=== PATIENT | female | born 1970 | race Caucasian/White ===

== ENCOUNTER 2016-12-16 18:45 | Inpatient (IN) | payer MEDICAID, SELFPAY ==
[~2016-12-16] VITALS: Ht 162.6 cm; Wt 102.5 kg
[2016-12-16] MEDS ORDERED: TRAZ300T2 PO (19:06)
[2016-12-16] MEDS ORDERED: SING10TA32 PO (19:06)
[2016-12-16] MEDS ORDERED: LEVO25TA5 PO (19:06)
[2016-12-16] MEDS ORDERED: BUSP15TA47 PO (19:06)
[2016-12-16] MEDS ORDERED: FIOR1CAP2 PO (19:06)
[2016-12-16] MEDS ORDERED: PROTPAK PO (19:06)
[2016-12-16] MEDS ORDERED: ABIL10TA9 PO (19:06)
[2016-12-16] MEDS ORDERED: LOPI600T PO (19:06)
[2016-12-16] MEDS ORDERED: GABA-283 PO (19:06)
[2016-12-16] MEDS ORDERED: SYMB16INH INH (19:06)
[2016-12-16] MEDS ORDERED: MOBI15TA PO (19:06)
[2016-12-16] MEDS ORDERED: INSUHUMDS SC (19:06)
[2016-12-16] MEDS ORDERED: CYMB60CA3 PO (19:06)
[2016-12-16] MEDS ORDERED: HYDR12.55 PO (19:06)
[2016-12-16] MEDS ORDERED: LISI10TA4 PO (19:06)
[2016-12-16] MEDS ORDERED: MAG SULF 1GM/100ML (MAG RUN) 1 GM in APPROPRIATE DILUENT 1 EA IV ONE (19:15)
[2016-12-16] MEDS ORDERED: methylPREDNISolone INJ 125 MG/2 ML VIAL (J2930) IV ONE (19:15)
[2016-12-16] MEDS: IPRATROPIUM 0.5MG/ALBUTEROL 2.5MG INH SOL UD 3ML (DUONEB)(J7620) NEB PRN (19:27)
[2016-12-16 19:46] LABS: ABG BASE EXCESS -1.1 (-2.0-2.0); ABG HCO3 22.3 MEQ/L (22.0-26.0); ABG PARTIAL PRESSURE CO2 33.3 mmHg (35.0-45.0); ABG PARTIAL PRESSURE O2 72.1 mmHg (75.0-100.0); ABG STANDARD HCO3 23.5 MEQ/L (22.0-26.0); ABG TOTAL CO2 23.3 MEQ/L (22.0-29.0); ABG pH (ARTERIAL) 7.444 UNITS (7.350-7.450)
[2016-12-16 20:19] LABS: MEAN CORPUSCULAR HEMOGLOBIN 28.4 pg (27.0-33.0); MEAN CORPUSCULAR HGB CONC 31.5 g/dl (32.0-36.5); MEAN CORPUSCULAR VOLUME 90.1 fl (80.0-96.0); PLATELET COUNT, AUTOMATED 279 10^3/uL (150-450); RED CELL DISTRIBUTION WIDTH 17.5 % (11.5-14.5)
[2016-12-16 20:22] LABS: ADD MANUAL DIFFER YES; DIFF SLIDE NUMBER 303; WHITE BLOOD COUNT 13.4 10^3/uL (4.0-10.0)
[2016-12-16 20:39] LABS: ANION GAP 10 MEQ/L (8-16); BLOOD UREA NITROGEN 9 MG/DL (7-18); CARBON DIOXIDE LEVEL 26 MEQ/L (21-32); CHLORIDE LEVEL 100 MEQ/L (98-107); CREATININE FOR GFR 0.78 MG/DL (0.55-1.02); GLOMERULAR FILTRATION RATE > 60.0 (>58); GLUCOSE, FASTING 317 MG/DL (70-105); POTASSIUM SERUM 3.4 MEQ/L (3.5-5.1); SODIUM LEVEL 136 MEQ/L (136-145)
[2016-12-16] MEDS: SYMBICORT 160/4.5MCG INHALER 6GM INH SCH (21:00)
[2016-12-16 21:12] LABS: ANISOCYTOSIS 1+; EOSINOPHILS 6 % (0-5)
[2016-12-16 21:13] LABS: SMUDGE CELLS 1+
[2016-12-16] MEDS: IPRATROPIUM 0.5MG/ALBUTEROL 2.5MG INH SOL UD 3ML (DUONEB)(J7620) NEB SCH ×3 (21:42→22:10)
[2016-12-16] MEDS ORDERED: POTASSIUM CHLORIDE 10 MEQ SR TABLET PO ONE (21:45)
[2016-12-16] MEDS ORDERED: IPRATROPIUM 0.5MG/ALBUTEROL 2.5MG INH SOL UD 3ML (DUONEB)(J7620) NEB PRN (21:45)
[2016-12-16] MEDS ORDERED: GLUCAGON FOR INJ 1 MG VIAL (J1610) SC PRN (22:00)
[2016-12-16] MEDS ORDERED: DEXTROSE 50% 50 ML SYRINGE IV PRN (22:00)
[2016-12-16] MEDS ORDERED: ACETAMINOPHEN TAB 650MG DOSE (2X325MG) PO PRN (22:00)
[2016-12-16] MEDS ORDERED: GLUCOSE 4 GM CHEW TABLET PO PRN (22:00)
[2016-12-16] MEDS ORDERED: ONDANSETRON 4MG/2ML VIAL (J2405) IV PRN (22:00)
[2016-12-16 22:15] LABS: ALBUMIN 3.4 GM/DL (3.2-5.2); ALBUMIN/GLOBULIN RATIO 0.87 (1.00-1.93); ALKALINE PHOSPHATASE 216 U/L (45-117); ALT/SGPT 62 U/L (12-78); AST/SGOT 28 U/L (15-37); BILIRUBIN,DIRECT < 0.1 MG/DL (0.0-0.2); BILIRUBIN,TOTAL 0.2 MG/DL (0.2-1.0); T UPTAKE 34 % (30-39); THYROXINE (T4) 11.9 UG/DL (4.5-12.0); TOTAL PROTEIN 7.3 GM/DL (6.4-8.2)
[2016-12-16] MEDS ORDERED: IPRASOL4 INH (22:28)
[2016-12-16] MEDS ORDERED: PROT1TAB2 PO (22:28)
[2016-12-16] MEDS ORDERED: GABA-282 PO (22:28)
[2016-12-16] MEDS ORDERED: INSUDET SC (22:28)
[2016-12-16] MEDS ORDERED: BUSP10TA PO (22:28)
[2016-12-16] MEDS ORDERED: ALBU17IN INH (22:28)
[2016-12-16] MEDS ORDERED: ALBUTEROL 90 MCG/ACT 8GM HFA INHALER INH PRN (23:15)
[2016-12-16 23:16] VITALS: BP 143/87
--- NOTE | 2016-12-16 23:25 | HPE ---
DATE OF ADMISSION: 12/16/2016 PRIMARY CARE PROVIDER: In [place], which the patient has not been seen because the patient has moved to [place]. CHIEF COMPLAINT: Shortness of breath and cough. HISTORY OF PRESENT ILLNESS: This is a 46-year-old female patient with underlying medical history of obesity, type 2 diabetes, insulin dependent, hypothyroidism, post traumatic stress disorder, bulging disc, insomnia, migraine, asthma, chronic obstructive pulmonary disease (COPD), with alpha-1 antitrypsin deficiency. Has been receiving infusion on weekly basis for the past year up until three weeks ago, when the patient moved to [place]. The patient presented with one week of progressive worsening shortness of breath and cough with upper respiratory tract symptoms of nasal congestion. Initially was coughing up clear sputum, but over the past two days was coughing up green sputum with subjective fevers. Positive sick contact. Today the patient has been coughing bad enough that patient vomited once. Was nonbloody, nonbilious with significant shortness of breath, presented to the emergency room. Denies any chest pain, pressure or discomfort. Reported dyspnea. Denies any abdominal pain, diarrhea or constipation. ALLERGIES: TABLET FORM OF PREDNISONE. The patient tolerated liquid form of prednisone without any problem. PAST MEDICAL HISTORY: Type 2 diabetes. Hypothyroidism. Posttraumatic stress disorder. Bulging disc. Insomnia. Migraine. Asthma. COPD. Alpha-1 antitrypsin deficiency. Obesity. Questionable history of obstructive sleep apnea. Has not had a sleep study done yet. PAST SURGICAL HISTORY: Tonsillectomy. Appendectomy. Cholecystectomy. section times three. SOCIAL HISTORY: Recently moved to [place]. Lives with a close friend. Quit smoking 6 years ago, 1 pack per day smoker for 20 plus years. Occasional alcohol drinking about once a week. FAMILY HISTORY: Skin cancer, no other cancers. Denies family history of lung cancer. REVIEW OF SYSTEMS: Reported coughing. Productive of green phlegm. Nasal congestion. Shortness of breath. Subjective fever and chills. All other review of systems are negative. HOME MEDICATION: - Abilify 10 mg by mouth at bedtime - Symbicort 160, 4.5 inhalation twice a day - buspirone 20 mg by mouth three times a day - Cymbalta 120 mg by mouth three times a day - Fioricet/codeine combination every 4 hours as needed - gabapentin 300 mg by mouth three times a day - gemfibrozil 600 mg by mouth daily - hydrochlorothiazide 25 mg by mouth daily - Humalog mealtime subcutaneous - Synthroid 25 mcg by mouth daily - lisinopril 10 mg by mouth daily - Mobic 50 mg by mouth daily - Singulair 10 mg by mouth daily - Protonix 40 mg by mouth twice a day - trazodone 200 mg by mouth at bedtime PHYSICAL EXAMINATION: VITAL SIGNS: Temperature 97.9, pulse 114, respirations 18, blood pressure 190/90, pulse oximetry 97% on room air. GENERAL: The patient alert, oriented times three. Obese. In no acute distress. HEENT: Normocephalic, atraumatic. PULMONARY: Diminished breath sounds bilateral. Poor air movement. CARDIAC: Regular S1, S2. No murmurs detected. ABDOMEN: Soft, obese, nontender. Positive bowel sounds. EXTREMITIES: No clubbing, cyanosis or edema. LABORATORY: WBC 13.4, hemoglobin and hematocrit 11.2/35.5, platelets 279. Chemistry: Sodium 136, potassium 3.4, chloride 100, bicarbonate 26, BUN 9, creatinine 0.78. Lactic acid 3.9. Chest x-ray shows bilateral hilar infiltrates with chemo port in place. ASSESSMENT AND PLAN: This is a 46-year-old female patient with underlying medical history of asthma, COPD, posttraumatic stress disorder, type 2 diabetes, hypothyroidism, bulging disc disease, chronic back pain, insomnia, migraine headache, alpha-1 antitrypsin deficiency. Questionable history of obstructive sleep apnea admitted for acute asthmatic exacerbation secondary to upper respiratory infection (URI). 1. Acute asthma exacerbation. Possibly secondary to URI versus bacterial bronchitis. Antibiotics of azithromycin and Rocephin, Solu-Medrol steroids. Continue nebulizer treatments, inhalers. Taper steroids as tolerated. ABG is appreciated. X-rays appreciated. Acapella. Mucinex. Followup C-reactive panel, respiratory panel, sputum cultures. 2. Lactic acidosis secondary to respiratory dry. The patient has stable blood pressure. Will followup repeat lactic acid. 3. Hypokalemia. Supplement potassium. Will followup magnesium. 4. Type 1 diabetes. Insulin as per protocol. 5. Hypothyroidism. Followup thyroid panel. Continue current medication. 6. Depression. Posttraumatic stress disorder. Continue current medication. 7. Bulging disc. Continue current medication. 8. Migraine headache. Continue home medication as ordered. The patient currently not having any symptoms. 9. Questionable obstructive sleep apnea. Continue pulse oximetry. 10. Alpha-1 antitrypsin deficiency. The patient will need outpatient followup with pulmonary. Case discussed with Dr. Johnson. No acute intervention in terms of infusion needed at this time. 11. Tachycardia. Likely secondary to nebulizer treatment and respiratory distress. Currently improved. 12. Deep venous thrombosis (DVT) prophylaxis. Lovenox subcutaneous. DISPOSITION: Pending clinical improvement. The patient will need primary care provider as well as whipped topping mixer to be arranged as outpatient.
[2016-12-16] MEDS ORDERED: TRAZ-136 PO (23:46)
[2016-12-17] MEDS: ARIPiprazole 10 MG TAB PO SCH ×2 (00:36→21:44)
[2016-12-17] MEDS: traZODone 100 MG TAB PO SCH ×2 (00:36→21:43)
[2016-12-17] MEDS: GABAPENTIN 300 MG CAP PO SCH ×4 (00:36→21:44)
[2016-12-17] MEDS: guaiFENesin ER 600 MG TAB PO SCH ×3 (00:37→21:44)
[2016-12-17] MEDS: cefTRIAXone SOD 2 GM in D5W 50 ML IV SCH ×2 (00:37→21:42)
[2016-12-17] MEDS: PANTOPRAZOLE 40MG TAB (PROTONIX) PO SCH ×3 (00:37→21:44)
[2016-12-17] MEDS: busPIRone 10 MG TAB PO SCH ×4 (00:37→21:44)
[2016-12-17] MEDS: HumaLOG INSULIN (NovoLOG) PER UNIT SC SCH ×5 (00:38→21:42)
[2016-12-17] MEDS: LEVEMIR (INSULIN DETEMIR) 1 UNITS/0.01ML SC SCH ×3 (00:38→21:43)
[2016-12-17] MEDS: IPRATROPIUM 0.5MG/ALBUTEROL 2.5MG INH SOL UD 3ML (DUONEB)(J7620) NEB SCH ×4 (01:09→19:35)
[2016-12-17] MEDS: AZITHROMYCIN INJ 500 MG, VIAL MATE ADAPTER 1 EACH in D5W 250 ML IV SCH ×2 (02:03→22:37)
[2016-12-17] MEDS: methylPREDNISolone INJ 125 MG/2 ML VIAL (J2930) IV SCH ×2 (03:17→11:28)
[2016-12-17] MEDS: SODIUM CHLORIDE 0.9% INJ 10 ML SYR IV PRN (04:45)
[2016-12-17 05:07] LABS: MEAN CORPUSCULAR HEMOGLOBIN 28.6 pg (27.0-33.0); MEAN CORPUSCULAR HGB CONC 31.7 g/dl (32.0-36.5); MEAN CORPUSCULAR VOLUME 90.2 fl (80.0-96.0)
[2016-12-17] MEDS: LEVOTHYROXINE 25MCG TABLET (0.025MG) PO SCH (05:32)
[2016-12-17 06:00] VITALS: BP 133/93
[2016-12-17 06:49] LABS: ANION GAP 9 MEQ/L (8-16); BLOOD UREA NITROGEN 12 MG/DL (7-18); CARBON DIOXIDE LEVEL 24 MEQ/L (21-32); CHLORIDE LEVEL 102 MEQ/L (98-107); CREATININE FOR GFR 0.88 MG/DL (0.55-1.02); GLOMERULAR FILTRATION RATE > 60.0 (>58); MAGNESIUM LEVEL 2.2 MG/DL (1.8-2.4); POTASSIUM SERUM 4.7 MEQ/L (3.5-5.1); SODIUM LEVEL 135 MEQ/L (136-145)
[2016-12-17 06:53] LABS: GLUCOSE, FASTING 492 MG/DL (70-105)
[2016-12-17] MEDS: SYMBICORT 160/4.5MCG INHALER 6GM INH SCH ×2 (07:25→19:34)
[2016-12-17] MEDS ORDERED: HumaLOG INSULIN (NovoLOG) PER UNIT SC SCH (07:30)
--- NOTE | 2016-12-17 07:36 | REP ---
PA and lateral chest: Comparison is 12/10/2016. Lung jara are clear. Cardiac size is normal. The harriet, mediastinum, and bony thorax are unremarkable. There is a left subclavian [id number] catheter, unchanged. Impression: No acute cardiopulmonary findings. No interval change. The Signed by Emir Velasquez MD 12/17/2016 07:26 A
[2016-12-17] MEDS ORDERED: DULoxetine 30 MG CAP (CYMBALTA) PO SCH (09:00)
[2016-12-17] MEDS: SODIUM CHLORIDE 0.9% INJ 10 ML SYR IV SCH (09:00)
[2016-12-17] MEDS: SENOKOT S TAB PO SCH ×2 (09:22→21:43)
[2016-12-17] MEDS: GEMFIBROZIL 600 MG TAB PO SCH (09:22)
[2016-12-17] MEDS: LISINOPRIL 10 MG TAB PO SCH (09:22)
[2016-12-17] MEDS: DULoxetine 30 MG CAP (CYMBALTA) PO SCH (09:23)
[2016-12-17] MEDS: hydroCHLOROthiazide 25 MG TAB PO SCH (09:23)
[2016-12-17] MEDS: MONTELUKAST 10 MG TAB PO SCH (09:23)
[2016-12-17] MEDS: ENOXAPARIN 40 MG/0.4 ML SYRINGE (J1650) SC SCH (09:23)
[2016-12-17] MEDS: MELOXICAM (MOBIC) 7.5 MG TAB PO SCH (09:35)
[2016-12-17 14:00] VITALS: BP 130/90
--- NOTE | 2016-12-17 16:55 | IPNPDOC ---
Subjective Date Seen The patient was seen on 12/17/16. Subjective Chief Complaint/HPI The patient is a 46-year-old female admitted with a reason for visit of Acute Asthma Exacerbation. Events since last encounter Patient condition improving. WBC 13.0 today (trending down from admission). Potassium 4.7 today. Glucose 492, Lactic acid 3.3 today . Patient CXR on 12/16 showed no acute findings. Nasopharynx Respiratory Virus Panel was negative. Blood cultures are pending. Patient has been administered Azithromycin and Rocephin, as well as SoluMedrol Steroids, Mucinex, and an Acapella. Patient states that she is feeling much better today. She states that her SOB and cough have improved. She is still coughing up sputum, but it is not as green as it was yesterday. Patient admits to chest tightness in relation to her breathing difficulties that is improving as well. Patient denies REAVES, chest pain, abdominal pain, N/V/D/C, dysuria, abnormal swelling in her legs. Constitutional: Denies: Chills, Fever ENT: Denies: Head Aches Pulmonary: Reports: Cough (Improved from admission, sputum less green), Denies: Dyspnea Cardiovascular: Reports: Edema (She gets swelling every now and then, this is the same type), Other Symptoms (Chest tightness in relation to breathing difficulty), Denies: Chest Pain Gastrointestinal: Denies: Nausea, Vomiting, Abdominal Pain, Diarrhea, Constipation Genitourinary: Denies: Dysuria Objective Physical Examination General Exam: Positive: Alert, Cooperative Chest Exam: Positive: Wheezing (Faint inspiratory and end-expiratory wheezing bilateral), Diminished (Diminished in all jara) Heart Exam: Positive: Tachycardic, Regular Rhythm, Normal S1, Normal S2 Abdomen Exam: Positive: Normal bowel sounds, Soft, Negative: Tenderness Neuro Exam: Positive: Normal Speech Psych Exam: Positive: Mental status NL, Oriented x 3 Assessment /Plan Assessment 1. Acute asthma exacerbation. Patient condition improved from admission on 12/16. Azithromycin and Rocephin, Solu-Medrol steroids prescribed, will continue. Continue nebulizer treatments, inhalers, Acapella, Mucinex. Taper steroids as tolerated. D.C. IV steroid 60 mg IV today and starting prednisone 40 mg liquid today. Blood cultures pending. 2. Lactic acidosis likely secondary to respiratory hypoxia. Will not be following lactic acid because clinically patient is improving. Will revaluate in the future if needed. 3. Hypokalemia. Supplemented with potassium after 3.4 on admission. Resolved with 4.7 today. Will continue to monitor. 4. Type 1 diabetes. Insulin as per protocol. 5. Hypothyroidism. Followup thyroid panel (no abnormalities on admission thyroid panel). Continue current medication. 6. Depression. Posttraumatic stress disorder. Continue current medication. 7. Bulging disc. Continue current medication. 8. Migraine headache. Continue home medication as ordered. The patient currently not having any symptoms. 9. Questionable obstructive sleep apnea. Continue pulse oximetry. 10. Alpha-[address] Johnson consulted on admission. The patient will need outpatient followup with pulmonary. No acute intervention in terms of infusion needed at this time. We appreciate Dr. Johnson's input. 11. Tachycardia. Likely secondary to nebulizer treatment will continue to monitor. 12. Deep venous thrombosis (DVT) prophylaxis. Lovenox subcutaneous. Plan/VTE VTE Prophylaxis Ordered?: Yes (levonox) VS, I&O, 24H, [facility] Vital Signs/I&O Vital Signs Date Time Temp Pulse Resp B/P (MAP) Pulse Ox O2 Delivery O2 Flow Rate FiO2 12/17/16 09:22 133/93 12/17/16 06:00 96.8 113 18 95 Room Air I&O- Last 24 Hours up to 6 AM 12/18/16 05:59 Intake Total 360 ml Output Total 800 ml Balance -440 ml Laboratory Data 24H LABS Laboratory Tests 2 12/16/16 19:19: White Blood Count 13.4H, Red Blood Count 3.94L, Hemoglobin 11.2L, Hematocrit 35.5L, Mean Corpuscular Volume 90.1, Mean Corpuscular Hemoglobin 28.4, Mean Corpuscular Hemoglobin Concent 31.5L, Red Cell Distribution Width 17.5H, Platelet Count 279, Lymphocytes # (Auto) , Nucleated Red Blood Cells % (auto) 0.0, Neutrophils 49, Lymphocytes (Manual) 43, Monocytes (Manual) 2, Eosinophils (Manual) 6H, Smudge Cells 1+, Platelet Estimate NORMAL, Anisocytosis 1+, Blood Gas Bicarbonate Standard 23.5, Arterial Blood pH 7.444, Arterial Blood Partial Pressure CO2 33.3L, Arterial Blood Partial Pressure O2 72.1L, Arterial Blood Total CO2 23.3, Arterial Blood HCO3 22.3, Arterial Blood Base Excess -1.1, Arterial Blood Oxygen Saturation 95.1, Anion Gap 10, Glomerular Filtration Rate > 60.0, Lactic Acid Level 3.9*H, Blood Urea Nitrogen 9, Creatinine 0.78, Sodium Level 136, Potassium Level 3.4L, Chloride Level 100, Carbon Dioxide Level 26, Calcium Level 9.0, Aspartate Amino Transf (AST/SGOT) 28, Alanine Aminotransferase (ALT/SGPT) 62, Alkaline Phosphatase 216H, Total Bilirubin 0.2, Direct Bilirubin < 0.1, C-Reactive Protein, Quantitative 2.88H, Total Protein 7.3, Albumin 3.4, Albumin/Globulin Ratio 0.87L, Thyroid Stimulating Hormone (TSH ) 1.410, Free Thyroxine Index 4.0, Thyroxine (T4) 11.9, Triiodothyronine (T3) Uptake 34 12/16/16 23:30: Bedside Glucose (Misc Panel) 399H 12/17/16 00:12: Lactic Acid Level 2.6*H 12/17/16 04:45: Anion Gap 9, Glomerular Filtration Rate > 60.0, Blood Urea Nitrogen 12, Creatinine 0.88, Sodium Level 135L, Potassium Level 4.7#, Chloride Level 102, Carbon Dioxide Level 24, Calcium Level 9.0, C-Reactive Protein, Quantitative 3.07H, Lactic Acid Followup at 4 Hours 3.3*H, Magnesium Level 2.2 CBC/BMP Laboratory Tests 12/16/16 19:19 Red Blood Count 3.94 L, Mean Corpuscular Volume 90.1, Mean Corpuscular Hemoglobin 28.4, Mean Corpuscular Hemoglobin Concent 31.5 L, Red Cell Distribution Width 17.5 H, Lymphocytes # (Auto) , Calcium Level 9.0 12/17/16 04:45 Red Blood Count 3.88 L, Mean Corpuscular Volume 90.2, Mean Corpuscular Hemoglobin 28.6, Mean Corpuscular Hemoglobin Concent 31.7 L, Red Cell Distribution Width 18.0 H, Calcium Level 9.0 Microbiology Microbiology 12/17/16 Blood Culture, Received Pending 12/16/16 Blood Culture, Received Pending 12/17/16 Respiratory Virus Panel (PCR) ([facility]) - Final, Complete GME ATTESTATION GME ATTESTATION My preceptor for this patient encounter was physically present in the building during the encounter and was fully available. As needed, all aspects of the patient interview, examination, medical decision making process, and medical care plan development were reviewed and approved by the preceptor. Preceptor is aware and concurs with the plan as stated in the body of this note and will attest to such by his/her cosignature. KAVITHA NYE DO Dec 17, 2016 10:51
[2016-12-17] MEDS ORDERED: EXCEDRIN MIGRAINE TABLET PO ONE (20:00)
[2016-12-17 21:40] VITALS: O2SAT 94
[2016-12-17 22:00] VITALS: BP 132/73
[2016-12-18] MEDS: IPRATROPIUM 0.5MG/ALBUTEROL 2.5MG INH SOL UD 3ML (DUONEB)(J7620) NEB SCH ×2 (01:15→07:43)
[2016-12-18] MEDS: SODIUM CHLORIDE 0.9% INJ 10 ML SYR IV PRN ×3 (05:23→14:23)
[2016-12-18] MEDS: LEVOTHYROXINE 25MCG TABLET (0.025MG) PO SCH (05:24)
[2016-12-18 05:36] LABS: MEAN CORPUSCULAR HEMOGLOBIN 28.3 pg (27.0-33.0); MEAN CORPUSCULAR HGB CONC 31.3 g/dl (32.0-36.5); MEAN CORPUSCULAR VOLUME 90.6 fl (80.0-96.0); RED CELL DISTRIBUTION WIDTH 18.3 % (11.5-14.5); WHITE BLOOD COUNT 15.6 10^3/uL (4.0-10.0)
[2016-12-18 06:00] VITALS: BP 123/82
[2016-12-18 06:46] LABS: CALCIUM LEVEL 9.2 MG/DL (8.5-10.1); CARBON DIOXIDE LEVEL 28 MEQ/L (21-32); CHLORIDE LEVEL 101 MEQ/L (98-107); CREATININE FOR GFR 0.65 MG/DL (0.55-1.02); GLOMERULAR FILTRATION RATE > 60.0 (>58); GLUCOSE, FASTING 238 MG/DL (70-105); MAGNESIUM LEVEL 1.9 MG/DL (1.8-2.4)
[2016-12-18 06:52] LABS: ANION GAP 8 MEQ/L (8-16); SODIUM LEVEL 137 MEQ/L (136-145)
[2016-12-18 06:56] LABS: BLOOD UREA NITROGEN 20 MG/DL (7-18); POTASSIUM SERUM 3.4 MEQ/L (3.5-5.1)
[2016-12-18] MEDS: SYMBICORT 160/4.5MCG INHALER 6GM INH SCH (07:42)
[2016-12-18] MEDS ORDERED: POTASSIUM CHLORIDE 10 MEQ SR TABLET PO ONE (07:45)
[2016-12-18 08:15] VITALS: BP 145/94
[2016-12-18] MEDS: HumaLOG INSULIN (NovoLOG) PER UNIT SC SCH ×2 (08:52→11:49)
[2016-12-18] MEDS ORDERED: predniSONE 5MG/5ML SOLN ORAL SYRINGE PO SCH (09:00)
[2016-12-18] MEDS: MONTELUKAST 10 MG TAB PO SCH (09:15)
[2016-12-18] MEDS: GABAPENTIN 300 MG CAP PO SCH (09:15)
[2016-12-18] MEDS: GEMFIBROZIL 600 MG TAB PO SCH (09:16)
[2016-12-18] MEDS: MELOXICAM (MOBIC) 7.5 MG TAB PO SCH (09:16)
[2016-12-18] MEDS: guaiFENesin ER 600 MG TAB PO SCH (09:16)
[2016-12-18 09:17] VITALS: BP 145/94
[2016-12-18] MEDS: LISINOPRIL 10 MG TAB PO SCH (09:17)
[2016-12-18 09:18] VITALS: O2SAT 96
[2016-12-18] MEDS: DULoxetine 30 MG CAP (CYMBALTA) PO SCH (09:18)
[2016-12-18] MEDS: SENOKOT S TAB PO SCH (09:18)
[2016-12-18] MEDS: PANTOPRAZOLE 40MG TAB (PROTONIX) PO SCH (09:18)
[2016-12-18] MEDS: busPIRone 10 MG TAB PO SCH (09:18)
[2016-12-18] MEDS: ENOXAPARIN 40 MG/0.4 ML SYRINGE (J1650) SC SCH (09:19)
[2016-12-18] MEDS: SODIUM CHLORIDE 0.9% INJ 10 ML SYR IV SCH (09:20)
[2016-12-18] MEDS: hydroCHLOROthiazide 25 MG TAB PO SCH (09:24)
[2016-12-18] MEDS ORDERED: EXCEDRIN MIGRAINE TABLET PO PRN (09:45)
[2016-12-18] MEDS: LEVEMIR (INSULIN DETEMIR) 1 UNITS/0.01ML SC SCH (10:21)
--- NOTE | 2016-12-18 12:23 | DS.PDOC ---
Discharge Summary General Date of Admission Dec 16, 2016 at 21:47 Date of Discharge 12/18/2016 Discharge Summary PROCEDURES PERFORMED DURING STAY: None. ADMITTING DIAGNOSES: 1. Acute asthma exacerbation 2. Hypokalemia DISCHARGE DIAGNOSES: 1. Acute asthma exacerbation 2. Hypokalemia COMPLICATIONS/CHIEF COMPLAINT: Acute Asthma Exacerbation. HISTORY OF PRESENT ILLNESS: This is a 46-year-old female patient with underlying medical history of obesity, type 2 diabetes, insulin dependent, hypothyroidism, post traumatic stress disorder, bulging disc, insomnia, migraine, asthma, chronic obstructive pulmonary disease (COPD), with alpha-1 antitrypsin deficiency. Has been receiving infusion on weekly basis for the past year up until three weeks ago, when the patient moved to [place]. The patient presented with one week of progressive worsening shortness of breath and cough with upper respiratory tract symptoms of nasal congestion. Initially was coughing up clear sputum, but over the past two days was coughing up green sputum with subjective fevers. Positive sick contact. Today the patient has been coughing bad enough that patient vomited once. Was nonbloody, nonbilious with significant shortness of breath, presented to the emergency room. Denies any chest pain, pressure or discomfort. Reported dyspnea. Denies any abdominal pain, diarrhea or constipation. HOSPITAL COURSE: Patient was admitted for Acute asthma exacerbation possibly secondary to URI versus bacterial bronchitis. She was admitted to Med-surg floor. Azithromycin, Rocephin and Solu-Medrol IV was started. On day 2 we converted the patietn to prednisone 40 mg liquid, which she will cotinue outpatient and give taper schedule. Patient continued nebulizer treatments, inhalers while in patient as needed. We tapered her steroid on day 2 of admission because patietn was clincally more stable. Xray on admission was negative for acute process. Patient was also given Acapella and Mucinex for her film. Patient stated improvement of all of these symptoms on the day of discharge. Respitarory cultures were negative and sputum culutures were pending the day of discharge. Patient had a lactic acidosis secondary to respiratory dry. She had stable blood pressure, while on the floor. Patient had Hypokalemia which we Supplemented with potassium as needed. Patient had Tachycardia which was likely secondary to nebulizer treatment and respiratory distress. clincalyl improved the day of discharge. For her chronic morbities, Type 1 diabetes, Hypothyroidism, Depression, Bulging disc, Migraine headache we continued home medication. Patient Alpha-1 antitrypsin deficiency history. Case discussed with Dr. Johnson. No acute intervention in terms of infusion needed at this time. The patient will need outpatient followup with pulmonary . DISCHARGE MEDICATIONS: Please see below. ALLERGIES: Please see below. PHYSICAL EXAMINATION ON DISCHARGE: VITAL SIGNS: Please see below. General Exam: Positive: Alert, Cooperative Chest Exam: Diminished breath sounds (Diminished in all jaar) Heart Exam: Positive: Tachycardic, Regular Rhythm, Normal S1, Normal S2 Abdomen Exam: Positive: Normal bowel sounds, Soft, Negative: Tenderness Neuro Exam: Positive: Normal Speech Psych Exam: Positive: Mental status NL, Oriented x 3 LABORATORY DATA: Please see below. IMAGIN12/16/16 cxr - Impression: No acute cardiopulmonary findings. No interval change. ACTIVITY: As tolerated DIET: Diabetic Diet DISCHARGE PLAN: 1. Acute asthma exacerbation (resolved). Blood culture x1 showed gram postive cocci in clusters and pairs, another blood culture x1 showed no growth. Sputum cultures are still pending on day of discharge. Likely the first clutures is contaminant. Patient condition improved from admission on 12/16. All of patient' s antiobiotics can be stopped. The patient will follow a steroid taper, 40mg, 30mg 20mg, 10mg, for 3 days each, once discharged. Patient can continue with home inhalers as proscribed. 2. Lactic acidosis likely secondary to respiratory hypoxia (resolved). Lactic acid at 1.7 today, was 3.3 on 12/17. 3. Type 1 diabetes. Insulin as per protocol. 4. Hypothyroidism. Continue home medication. and follow up with PCP. 5. Depression. Posttraumatic stress disorder. Continue home medication. 6.. Bulging disc. Continue home medication. 7.. Migraine headache. Continue home medication as ordered. 8.. Questionable obstructive sleep apnea. Patient was stable while on the floor. Patient is following with PCP and pulmonary outpatient. Patient can then discuss diagnosis and treatment options outpatient if continue concern. 9.. Alpha-[address] antit[address] Johnson consulted on admission. The patient will need outpatient followup with pulmonary. No acute intervention in terms of infusion needed at this time. Patient will follow up with her within 2 weeks. DISCHARGE INSTRUCTIONS: 1. Establish and see PCP within 1 week 2. Follow up with Barrel Polisher with 2 weeks ITEMS TO FOLLOWUP ON ON OUTPATIENT: 1. Establish and see PCP within 1 week 2. Follow up with Pulmunologist with 2 weeks DISCHARGE CONDITION: Stable. TIME SPENT ON DISCHARGE: Greater than 35 minutes. Vital Signs/I&Os Vital Signs Date Time Temp Pulse Resp B/P (MAP) Pulse Ox O2 Delivery O2 Flow Rate FiO2 12/18/16 11:19 Room Air 12/18/16 09:17 145/94 12/18/16 08:15 97.7 103 16 98 I&O- Last 24 Hours up to 6 AM 12/19/16 06:00 Intake Total 1120 ml Output Total 50 ml Balance 1070 ml Laboratory Data Labs 24H Laboratory Tests 2 12/17/16 16:28: Bedside Glucose (Misc Panel) 361H 12/17/16 20:27: Bedside Glucose (Misc Panel) 347H 12/18/16 05:19: Anion Gap 8, Glomerular Filtration Rate > 60.0, Blood Urea Nitrogen 20#H, Creatinine 0.65, Sodium Level 137, Potassium Level 3.4#L, Chloride Level 101, Carbon Dioxide Level 28, Calcium Level 9.2, Magnesium Level 1.9, C-Reactive Protein, Quantitative 2.46H 12/18/16 06:13: Lactic Acid Level 1.7 12/18/16 11:29: Bedside Glucose (Misc Panel) 144H CBC/BMP Laboratory Tests 12/18/16 05:19 Red Blood Count 3.60 L, Mean Corpuscular Volume 90.6, Mean Corpuscular Hemoglobin 28.3, Mean Corpuscular Hemoglobin Concent 31.3 L, Red Cell Distribution Width 18.3 H, Calcium Level 9.2 FSBS Laboratory Tests Test 12/17/16 16:28 12/17/16 20:27 12/18/16 11:29 Range/Units Bedside Glucose (Misc Panel) 361 347 144 70-105 MG/DL Microbiology Microbiology 12/17/16 Blood Culture - Preliminary, Resulted No growth after 24 hours . All specim... 12/16/16 Blood Culture - Preliminary, Resulted 12/17/16 Gram Stain - Final, Resulted 12/17/16 Sputum Culture, Resulted Pending 12/17/16 Respiratory Virus Panel (PCR) ([facility]) - Final, Complete Discharge Medications Scheduled Aripiprazole (Abilify) 10 Mg Tab, 10 MG PO QHS, (Reported) Budesonide/Formoterol (Symbicort 160-4.5 Mcg/Act) 60 Puff/Inhaler Aers, 2 PUFF INH BID, (Reported) Buspirone HCl (Buspirone HCl) 10 Mg Tab, 20 MG PO TID, (Reported) Duloxetine Hcl (Cymbalta) 60 Mg Cap, 120 MG PO QHS, (Reported) Gabapentin (Gabapentin) 300 Mg Cap, 300 MG PO TID, (Reported) Gemfibrozil (Lopid) 600 Mg Tab, 600 MG PO DAILY, (Reported) Hydrochlorothiazide (Hydrochlorothiazide) 12.5 Mg Tab, 25 MG PO DAILY, (Reported ) Insulin Detemir (Levemir) 1 Units/0.01 Ml Susp, 60 UNITS SC BID, (Reported) Insulin Human Lispro (Humalog) 1 Units/0.01 Ml Inj, 1 UNITS SC ACHS, (Reported) PER SLIDING SCALE Levothyroxine Sodium (Synthroid) 25 Mcg Tab, 25 MCG PO DAILY, (Reported) Lisinopril (Lisinopril) 10 Mg Tab, 10 MG PO DAILY, (Reported) Meloxicam (Mobic) 15 Mg Tab, 15 MG PO DAILY, (Reported) Montelukast Sodium (Singulair) 10 Mg Tab, 10 MG PO DAILY, (Reported) Pantoprazole Sodium Sesquihydr (Protonix) 40 Mg Tab, 40 MG PO BID, (Reported) Prednisone (Prednisone) 5 Mg/5 Ml Sunday, 40 MG PO ASDIRECTED Trazodone HCl (Trazodone HCl) 100 Mg Tab, 200 MG PO QHS, (Reported) Scheduled PRN (Fioricet/Codeine 92-543-04-30 mg) 1 Cap Cap, 1 CAP PO Q4H PRN for MIGRAINE, ( Reported) Albuterol Sulfate (Ventolin Hfa) 200 Puff/8 Gm Aers, 2 PUFF INH Q4H PRN for SHORTNESS OF BREATH, (Reported) Albuterol/Ipratropium (Ipratropium [place]/Albut 0.5-2.5 (3) mg/3Ml) 1 Sunday Sunday, 1 SUNDAY INH Q4H PRN for SHORTNESS OF BREATH, (Reported) Allergies Coded Allergies: Prednisone (Verified Allergy, Unknown, ORAL SOLID DOSAGE FORM ONLY, ) CAN TAKE LIQUID GME ATTESTATION GME ATTESTATION My preceptor for this patient encounter was physically present in the building during the encounter and was fully available. As needed, all aspects of the patient interview, examination, medical decision making process, and medical care plan development were reviewed and approved by the preceptor. Preceptor is aware and concurs with the plan as stated in the body of this note and will attest to such by his/her cosignature. KAVITHA NYE DO Dec 18, 2016 12:22
[2016-12-18] MEDS ORDERED: LEVA1TAB2 PO (12:47)
[2016-12-18] MEDS ORDERED: PRED5ELUD PO (12:47)
[2016-12-18 14:05] VITALS: BP 143/86
== END 2016-12-18 14:47 | disposition home or self-care (01) | DRG 141 ==
LOC: M ED 18:45 → M ED INP 21:47 → M MSPAV 23:15
PROVIDERS: ADMIT Hospitalist; ATTEND Internal Medicine
DX: J45.901 Unspecified asthma with (acute) exacerbation (principal); E87.6 Hypokalemia; E66.9 Obesity, unspecified; E10.9 Type 1 diabetes mellitus without complications; E03.9 Hypothyroidism, unspecified; G47.00 Insomnia, unspecified; F43.10 Post-traumatic stress disorder, unspecified; J44.9 Chronic obstructive pulmonary disease, unspecified; G43.909 Migraine, unspecified, not intractable, without status migrainosus; E88.01 Alpha-1-antitrypsin deficiency; E87.2 Acidosis; F32.9 Major depressive disorder, single episode, unspecified; Z79.899 Other long term (current) drug therapy; Z88.8 Allergy status to other drugs, medicaments and biological substances; F17.200 Nicotine dependence, unspecified, uncomplicated; R00.0 Tachycardia, unspecified

== ENCOUNTER 2016-12-30 21:30 | Observation (INO) | payer MEDICAID ==
[~2016-12-30] VITALS: Ht 162.6 cm; Wt 96.0 kg
[2016-12-30] MEDS: traZODone 100 MG TAB PO SCH (21:00)
[~2016-12-30 21:30] MED LIST: ABIL10TA9 PO; ALBU17IN INH; BUSP10TA PO; BUSP15TA47 PO; CYMB60CA3 PO; FIOR1CAP2 PO; GABA-282 PO; GABA-283 PO; HYDR12.55 PO; HumaLOG INSULIN (NovoLOG) PER UNIT SC SCH; INSUDET SC; INSUHUMDS SC; IPRASOL4 INH; LEVA1TAB2 PO; LEVO25TA5 PO; LISI10TA4 PO; LOPI600T PO; MOBI15TA PO; PRED5ELUD PO; PROT1TAB2 PO; PROTPAK PO; SING10TA32 PO; SYMB16INH INH; TRAZ-136 PO; TRAZ300T2 PO
[2016-12-30] MEDS ORDERED: methylPREDNISolone INJ 125 MG/2 ML VIAL (J2930) IV ONE (22:15)
[2016-12-30] MEDS ORDERED: MAG SULF 1GM/100ML (MAG RUN) 1 GM in APPROPRIATE DILUENT 1 EA IV ONE (22:15)
[2016-12-30 22:16] LABS: BASO # 0.1 10^3/uL (0.0-0.2); BASO % 0.5 % (0.0-1.0); EOS # 0.1 10^3/uL (0.0-0.50); IMMATURE GRANULOCYTE % 0.9 % (0-0); LYMPH # 1.5 10^3/uL (1.5-4.5); LYMPH % 11.3 % (24.0-44.0); MEAN CORPUSCULAR HEMOGLOBIN 29.5 pg (27.0-33.0); MEAN CORPUSCULAR HGB CONC 32.3 g/dl (32.0-36.5); MEAN CORPUSCULAR VOLUME 91.4 fl (80.0-96.0); MONO % 7.4 % (0.0-5.0); NEUTROPHILS # 10.3 10^3/uL (1.8-7.7); NEUTROPHILS % 78.9 % (36.0-66.0); PLATELET COUNT, AUTOMATED 250 10^3/uL (150-450); RED CELL DISTRIBUTION WIDTH 16.9 % (11.5-14.5)
[2016-12-30] MEDS: IPRATROPIUM 0.5MG/ALBUTEROL 2.5MG INH SOL UD 3ML (DUONEB)(J7620) NEB PRN ×2 (22:20→22:21)
[2016-12-30 22:34] LABS: ABG BASE EXCESS -3.4 (-2.0-2.0); ABG HCO3 20.7 MEQ/L (22.0-26.0); ABG PARTIAL PRESSURE CO2 33.8 mmHg (35.0-45.0); ABG PARTIAL PRESSURE O2 189.8 mmHg (75.0-100.0); ABG STANDARD HCO3 21.7 MEQ/L (22.0-26.0); ABG TOTAL CO2 21.7 MEQ/L (22.0-29.0); ABG pH (ARTERIAL) 7.404 UNITS (7.350-7.450)
[2016-12-30 22:43] LABS: ANION GAP 9 MEQ/L (8-16); BLOOD UREA NITROGEN 20 MG/DL (7-18); CALCIUM LEVEL 8.6 MG/DL (8.5-10.1); CARBON DIOXIDE LEVEL 26 MEQ/L (21-32); CHLORIDE LEVEL 102 MEQ/L (98-107); CREATININE FOR GFR 0.82 MG/DL (0.55-1.02); GLOMERULAR FILTRATION RATE > 60.0 (>58); GLUCOSE, FASTING 350 MG/DL (70-105); POTASSIUM SERUM 3.7 MEQ/L (3.5-5.1); SODIUM LEVEL 137 MEQ/L (136-145)
[2016-12-30 22:57] LABS: ALBUMIN 3.1 GM/DL (3.2-5.2); ALBUMIN/GLOBULIN RATIO 0.82 (1.00-1.93); ALKALINE PHOSPHATASE 245 U/L (45-117); ALT/SGPT 90 U/L (12-78); AST/SGOT 47 U/L (15-37); BILIRUBIN,DIRECT < 0.1 MG/DL (0.0-0.2); BILIRUBIN,TOTAL 0.2 MG/DL (0.2-1.0); TOTAL PROTEIN 6.9 GM/DL (6.4-8.2)
[2016-12-30] MEDS ORDERED: GEMF600T PO (23:17)
[2016-12-30] MEDS ORDERED: FIOR1CAP PO (23:17)
[2016-12-30] MEDS ORDERED: PROT1TAB2 PO (23:17)
[2016-12-30] MEDS ORDERED: INSUHUMDS SC (23:17)
[2016-12-30] MEDS ORDERED: LISI10TA4 PO (23:17)
[2016-12-30] MEDS ORDERED: PRED5EL PO (23:17)
[2016-12-30] MEDS ORDERED: SYNT25TA PO (23:17)
[2016-12-30] MEDS ORDERED: INSUDET SC (23:17)
[2016-12-30] MEDS ORDERED: BUSP10TA PO (23:17)
[2016-12-30] MEDS ORDERED: IPRASOL4 INH (23:17)
[2016-12-30] MEDS ORDERED: SYMB16INH INH (23:17)
[2016-12-30] MEDS ORDERED: MELO15TA4 PO (23:17)
[2016-12-30] MEDS ORDERED: ABIL10TA9 PO (23:17)
[2016-12-30] MEDS ORDERED: TRAZ-136 PO (23:17)
[2016-12-30] MEDS ORDERED: VENTAER INH (23:17)
[2016-12-30] MEDS ORDERED: CYMB60CA3 PO (23:17)
[2016-12-30] MEDS ORDERED: GABA-282 PO (23:17)
[2016-12-30] MEDS ORDERED: SING10TA32 PO (23:17)
[2016-12-30] MEDS ORDERED: HYDR25TAB PO (23:17)
[2016-12-31] MEDS ORDERED: GLUCAGON FOR INJ 1 MG VIAL (J1610) SC PRN (00:15)
[2016-12-31] MEDS ORDERED: IPRATROPIUM 0.5MG/ALBUTEROL 2.5MG INH SOL UD 3ML (DUONEB)(J7620) NEB PRN (00:15)
[2016-12-31] MEDS ORDERED: FIORICET TAB PO PRN (00:15)
[2016-12-31] MEDS ORDERED: GLUCOSE 4 GM CHEW TABLET PO PRN (00:15)
[2016-12-31] MEDS ORDERED: DEXTROSE 50% 50 ML SYRINGE IV PRN (00:15)
[2016-12-31] MEDS ORDERED: ONDANSETRON 4MG/2ML VIAL (J2405) IV PRN (00:30)
[2016-12-31 00:32] LABS: GAMMA GLUTAMYLTRANSPEPTIDASE 359 U/L (5-55)
[2016-12-31] MEDS ORDERED: ISOVUE-370 76% 100ML VIAL (Q9967) As Ordered ONE (01:00)
[2016-12-31] MEDS: ARIPiprazole 10 MG TAB PO SCH ×2 (01:28→21:05)
[2016-12-31] MEDS: GABAPENTIN 300 MG CAP PO SCH ×4 (01:28→21:05)
[2016-12-31] MEDS: PANTOPRAZOLE 40MG TAB (PROTONIX) PO SCH ×3 (01:28→21:05)
[2016-12-31] MEDS: AZITHROMYCIN INJ 500 MG, VIAL MATE ADAPTER 1 EACH in D5W 250 ML IV SCH (01:29)
[2016-12-31] MEDS: IPRATROPIUM 0.5MG/ALBUTEROL 2.5MG INH SOL UD 3ML (DUONEB)(J7620) NEB SCH ×4 (01:32→19:50)
--- NOTE | 2016-12-31 02:10 | REPUSA ---
CLINICAL HISTORY: Elevated liver enzymes. TECHNIQUE: Realtime sonographic images were obtained in multiple projections. COMMENTS: The liver is demonstrates increased echogenicity compatible with fatty infiltration. No discrete hepatic mass is seen. There is no intra or extrahepatic biliary ductal dilatation. CBD measures 6.8 mm. The gallbladder is surgically absent. The gallbladder wall is not thickened and there is no perichole cystic fluid. There is no abdominal ascites. The right kidney measures 11.8x4.6x5.3 cm, free of hydronephrosis, calculi, cysts or masses. IMPRESSION: Fatty liver. Cholecystectomy. Nondilated biliary tree. Thank you for your kind referral of this patient.
--- NOTE | 2016-12-31 02:30 | REPUSA ---
CLINICAL HISTORY: Shortness of breath. TECHNIQUE: Multiple axial CT images were obtained through chest without IV contrast material. MPR cor onal and sagittal sequences were obtained. COMMENTS: There is bilateral peribronchial interstitial thickening suggestive of bronchitis. There is no evidence of pleural or parenchymal mass. There are no pleural effusions. There is no evid ence of hilar or mediastinal lymphadenopathy. The heart and great vessels are within normal limits. The visualized portions of the liver are of uniform attenuation without mass or defect. There is no i ntra or extrahepatic biliary ductal dilatation. The spleen is unremarkable. The visualized pancreas i s of normal contour and attenuation characteristics. There is no evidence of adrenal mass. The visual ized portions of the kidneys present no abnormalities. The bony structures are free of lytic or blastic lesions. Multilevel degenerative changes are seen in volving the thoracic spine. A Port-A-Cath is in good position. IMPRESSION: Bronchitis. Thank you for your kind referral of this patient.
[2016-12-31] MEDS: cefTRIAXone SOD 2 GM in D5W 50 ML IV SCH (03:18)
[2016-12-31] MEDS: DULoxetine 30 MG CAP (CYMBALTA) PO SCH ×2 (03:18→21:05)
[2016-12-31] MEDS ORDERED: INFLUENZA QUADRIVALENT PF VACCINE 0.5ML SYRINGE (90686) IM SCH (03:45)
[2016-12-31 04:00] VITALS: BP 137/88
[2016-12-31] MEDS: LEVOTHYROXINE 25MCG TABLET (0.025MG) PO SCH (05:17)
[2016-12-31] MEDS: HEPARIN SOD (PORCINE) 5000 UNITS/ML VIAL SC SCH ×3 (05:18→21:06)
[2016-12-31] MEDS: SODIUM CHLORIDE 0.9% INJ 10 ML SYR IV PRN ×2 (05:19→17:49)
[2016-12-31 05:45] LABS: MEAN CORPUSCULAR HEMOGLOBIN 28.8 pg (27.0-33.0); MEAN CORPUSCULAR HGB CONC 31.3 g/dl (32.0-36.5); RED CELL DISTRIBUTION WIDTH 17.1 % (11.5-14.5)
--- NOTE | 2016-12-31 05:49 | HPE ---
DATE OF ADMISSION: 12/30/2016 PRIMARY CARE PROVIDER: Patient is scheduled to see Dr. Elsa Davidson on 01/08. DISTRIBUTION DRIVER: The patient is waiting to be set up with pulmonology appointment. CHIEF COMPLAINT: Shortness of breath and cough. HISTORY OF PRESENT ILLNESS: This is a 46-year-old female patient recently moved over from [place], with underlying medical history of obesity, type 2 diabetes insulin dependent, hypothyroidism, posttraumatic stress disorder, bulging disc, insomnia, migraine, asthma, chronic obstructive pulmonary disease (COPD) not on oxygen, with alpha 1 antitrypsin deficiency, was receiving weekly injections from [place] for the past year and has moved to [place]. Was recently admitted 12/16/2016, with COPD exacerbation, subsequently discharged three days later with improvement. Earlier yesterday, the patient had an episode of severe shortness of breath with significant wheezing, dry cough, subsequently presented to the emergency room with bronchospasm and dyspnea. Was given multiple nebulizer treatments and steroids in the emergency department (ED) with minimal improvement. Subsequently request was made to admit the patient for further treatment. ALLERGIES: MECLIZINE, METFORMIN, and also SOLID FORM OF PREDNISONE. The patient has tolerated liquid form of prednisone without any problem. PAST MEDICAL HISTORY: 1. Type 2 diabetes, insulin dependent. 2. Hypothyroidism. 3. Posttraumatic stress disorder. 4. Bulging disc. 5. Insomnia. 6. Migraine. 7. Asthma. 8. COPD. 9. Alpha 1 antitrypsin deficiency. 10. Obesity. 11. Questionable history of sleep apnea. PAST SURGICAL HISTORY: 1. Tonsillectomy. 2. Appendectomy. 3. Cholecystectomy. 4. section times three. 5. As well, chemo-port placement for poor venous access. SOCIAL HISTORY: Recently moved to [place]. Lives with a close friend. Quit smoking six years ago, one pack per day smoking for 20+ years. Occasional alcohol use about once a week. FAMILY HISTORY: Skin cancer. No other cancer history. Denies family history of lung cancer. REVIEW OF SYSTEMS: Reported shortness of breath and cough, nonproductive. No nasal congestion. All other review of systems negative. HOME MEDICATIONS: - Fioricet by mouth every four hours as needed - Ventolin inhaler every four hours as needed - DuoNeb every four hours as needed - Abilify 10 mg by mouth at bedtime - Symbicort 160/4.5 inhalation twice a day - buspirone 20 mg by mouth twice a day - Cymbalta 120 mg by mouth at bedtime - gabapentin 300 mg by mouth three times a day - gemfibrozil 600 mg by mouth daily - hydrochlorothiazide 25 mg by mouth daily - Levemir 60 units subcutaneous twice a day - Humalog before food and at bedtime via sliding scale - Synthroid 25 mcg by mouth daily - lisinopril 10 mg by mouth daily - meloxicam 15 mg by mouth daily - Singulair 10 mg by mouth daily - Protonix 40 mg by mouth twice a day - prednisone 40 mg by mouth daily - trazodone 200 mg by mouth at bedtime PHYSICAL EXAMINATION: VITAL SIGNS: Temperature 96.2, pulse 130, respirations 25, blood pressure 148/90, pulse oximetry 96%. GENERAL: Patient obese, alert and oriented times three, in no acute distress. HEENT: Normocephalic, atraumatic. PULMONARY: Diminished breath sounds bilaterally. Bilateral expiratory wheeze. CARDIAC: Tachycardia, regular. S1, S2. ABDOMEN: Soft, nontender. Positive bowel sounds. EXTREMITIES: No clubbing, cyanosis or edema. ELECTROCARDIOGRAM (EKG): Shows sinus tachycardia at 132. No ST segment changes. IMAGING: Chest x-ray shows bilateral interstitial fibrosis. LABORATORY DATA: WBC 13, hemoglobin and hematocrit 11 over 34.1, platelets 250. Chemistry: Sodium 137, potassium 3.7, chloride 102, bicarbonate 26, BUN 20, creatinine 0.8. GGTP 359. AST 47, ALT 90, alkaline phosphatase 245. C-reactive protein 2.18. ASSESSMENT AND PLAN: This is a 46-year-old female patient with underlying medical history of type 2 diabetes, hypothyroidism, chronic obstructive pulmonary disease (COPD) with alpha 1 antitrypsin deficiency, posttraumatic stress disorder, bulging disc, insomnia, migraine, obesity, who presented with shortness of breath. 1. Shortness of breath with tachypneic, possibly secondary to bronchospasm versus COPD exacerbation with underlying alpha 1 antitrypsin deficiency. The patient will need followup with pulmonology. Is in the process of getting set up with pulmonology. Nebulizer treatments. Solu-Medrol. Rocephin and azithromycin, possibly underlying pneumonia. Will get CT of the chest with contrast to further delineate given the patient has had two episodes with admission recently. Nebulizer treatments. Solu-Medrol. Antibiotics as mentioned above. Taper steroids as tolerated. Singulair. Continue Symbicort. 2. Hyperglycemia with underlying type 2 diabetes, likely secondary to steroids. Continue basal bolus insulin. Adjust as needed. 3. Hypothyroidism. Continue Synthroid. 4. Bulging disc. Continue current medications. 5. Insomnia/migraine. Continue current medication. 6. Obesity complicating care. 7. Transaminitis. Followup hepatitis panel. Right upper quadrant ultrasound. Continue to follow. Followed up international normalized ratio (INR). 8. Deep venous thrombosis (DVT) prophylaxis. Heparin subcutaneous. DISPOSITION: Pending clinical improvement. Patient admitted for observation.
[2016-12-31] MEDS ORDERED: methylPREDNISolone INJ 125 MG/2 ML VIAL (J2930) IV SCH (06:00)
[2016-12-31 06:13] LABS: INR 0.88
[2016-12-31 06:17] LABS: ALBUMIN 3.2 GM/DL (3.2-5.2); ALBUMIN/GLOBULIN RATIO 0.84 (1.00-1.93); ALKALINE PHOSPHATASE 261 U/L (45-117); ALT/SGPT 88 U/L (12-78); ANION GAP 14 MEQ/L (8-16); AST/SGOT 32 U/L (15-37); BILIRUBIN,TOTAL 0.1 MG/DL (0.2-1.0); BLOOD UREA NITROGEN 17 MG/DL (7-18); CALCIUM LEVEL 8.4 MG/DL (8.5-10.1); CARBON DIOXIDE LEVEL 20 MEQ/L (21-32); CHLORIDE LEVEL 103 MEQ/L (98-107); CREATININE FOR GFR 1.06 MG/DL (0.55-1.02); MAGNESIUM LEVEL 1.7 MG/DL (1.8-2.4); POTASSIUM SERUM 4.7 MEQ/L (3.5-5.1); SODIUM LEVEL 137 MEQ/L (136-145)
[2016-12-31 06:19] LABS: GLUCOSE, FASTING 451 MG/DL (70-105)
[2016-12-31] MEDS ORDERED: MAG SULF 1GM/100ML (MAG RUN) 1 GM in APPROPRIATE DILUENT 1 EA IV ONE (06:30)
[2016-12-31] MEDS ORDERED: HumaLOG INSULIN (NovoLOG) PER UNIT SC ONE (06:45)
[2016-12-31] MEDS ORDERED: HumaLOG INSULIN (NovoLOG) PER UNIT SC SCH ×2 (07:30→12:00)
[2016-12-31 08:00] VITALS: BP 170/99
[2016-12-31] MEDS: SENOKOT S TAB PO SCH ×2 (08:05→21:05)
[2016-12-31] MEDS: busPIRone 10 MG TAB PO SCH ×2 (08:05→21:05)
[2016-12-31] MEDS: MELOXICAM (MOBIC) 7.5 MG TAB PO SCH (08:06)
[2016-12-31] MEDS: GEMFIBROZIL 600 MG TAB PO SCH (08:06)
[2016-12-31] MEDS: LISINOPRIL 10 MG TAB PO SCH (08:06)
[2016-12-31] MEDS: MONTELUKAST 10 MG TAB PO SCH (08:06)
[2016-12-31] MEDS: hydroCHLOROthiazide 25 MG TAB PO SCH (08:06)
[2016-12-31] MEDS: LEVEMIR (INSULIN DETEMIR) 1 UNITS/0.01ML SC SCH ×2 (08:08→21:06)
[2016-12-31] MEDS: SYMBICORT 160/4.5MCG INHALER 6GM INH SCH ×2 (08:12→19:51)
--- NOTE | 2016-12-31 08:49 | REP ---
PORTABLE CHEST: AP portable view of the chest is performed and compared to prior study of 12/16/2016. Cardiomediastinal silhouette is magnified. No acute infiltrate is seen. There is a left sided Medi-Port catheter with the tip in the superior vena cava. IMPRESSION: No acute infiltrate. Signed by Emir Bangura MD 12/31/2016 07:56 P
--- NOTE | 2016-12-31 09:10 | ECGEPIP ---
Stationary ECG Study [facility] - ED Test Date: 2016-12-30 Pat Name: PATY CRYSTAL Department: Room: [place] [address] Gender: F Docket Specialist: keshav : 1970 Requested By: RAYMOND Mujica Order Number: [id number] Reading MD: Debby Schroeder Measurements Intervals [place] Rate: 132 P: 33 IA: 175 QRS: -5 QRSD: 92 T: 29 QT: 380 QTc: 563 Interpretive Statements SINUS TACHYCARDIA MODERATE VOLTAGE CRITERIA FOR LVH, CONSIDER NORMAL VARIANT ANTEROSEPTAL MYOCARDIAL INFARCTION, CLINICAL CORRELATION, NO PRIOR FOR COMPARISON NSTTW ABNORMALITY NO PRIOR FOR COMPARISON Electronically Signed On 12-31-2016 9:10:25 EDT by Debby Schroeder
[2016-12-31] MEDS: HumaLOG INSULIN (NovoLOG) PER UNIT SC SCH ×2 (11:48→17:12)
[2016-12-31 12:00] VITALS: BP 135/98
[2016-12-31 14:10] VITALS: BP 160/85
[2016-12-31] MEDS ORDERED: methylPREDNISolone INJ 40 MG/1 ML VIAL (J2920) IV ONE (18:00)
[2016-12-31] MEDS: traZODone 100 MG TAB PO SCH (21:05)
[2016-12-31 21:49] VITALS: BP 156/91
[2017-01-01] MEDS: AZITHROMYCIN INJ 500 MG, VIAL MATE ADAPTER 1 EACH in D5W 250 ML IV SCH ×2 (00:17→23:45)
[2017-01-01] MEDS: cefTRIAXone SOD 2 GM in D5W 50 ML IV SCH (01:23)
[2017-01-01] MEDS: IPRATROPIUM 0.5MG/ALBUTEROL 2.5MG INH SOL UD 3ML (DUONEB)(J7620) NEB SCH ×4 (02:00→19:51)
[2017-01-01] MEDS: SODIUM CHLORIDE 0.9% INJ 10 ML SYR IV PRN (02:31)
[2017-01-01 04:54] LABS: MEAN CORPUSCULAR HEMOGLOBIN 28.7 pg (27.0-33.0); MEAN CORPUSCULAR HGB CONC 31.2 g/dl (32.0-36.5); MEAN CORPUSCULAR VOLUME 91.9 fl (80.0-96.0); RED CELL DISTRIBUTION WIDTH 17.3 % (11.5-14.5); WHITE BLOOD COUNT 16.2 10^3/uL (4.0-10.0)
[2017-01-01] MEDS: LEVOTHYROXINE 25MCG TABLET (0.025MG) PO SCH (06:01)
[2017-01-01] MEDS: HEPARIN SOD (PORCINE) 5000 UNITS/ML VIAL SC SCH ×3 (06:01→20:52)
[2017-01-01 06:02] LABS: ALBUMIN 3.1 GM/DL (3.2-5.2); ALBUMIN/GLOBULIN RATIO 0.97 (1.00-1.93); ALKALINE PHOSPHATASE 175 U/L (45-117); ALT/SGPT 67 U/L (12-78); ANION GAP 8 MEQ/L (8-16); AST/SGOT 16 U/L (15-37); BILIRUBIN,TOTAL 0.1 MG/DL (0.2-1.0); BLOOD UREA NITROGEN 22 MG/DL (7-18); CALCIUM LEVEL 8.5 MG/DL (8.5-10.1); CARBON DIOXIDE LEVEL 26 MEQ/L (21-32); CHLORIDE LEVEL 103 MEQ/L (98-107); CREATININE FOR GFR 0.73 MG/DL (0.55-1.02); GLOMERULAR FILTRATION RATE > 60.0 (>58); GLUCOSE, FASTING 290 MG/DL (70-105); MAGNESIUM LEVEL 2.2 MG/DL (1.8-2.4); POTASSIUM SERUM 4.1 MEQ/L (3.5-5.1); SODIUM LEVEL 137 MEQ/L (136-145); TOTAL PROTEIN 6.3 GM/DL (6.4-8.2)
[2017-01-01 06:31] VITALS: BP 134/91
--- NOTE | 2017-01-01 07:44 | IPNPDOC ---
Text Note Date of Service The patient was seen on 01/01/17. NOTE Subjective: Patient seen and examined at bedside. States her breathing has improved, but not at baseline. Still complains of dyspnea on exertion. Objective: General: NAD, lying comfortably in bed HEENT: NC/AT, EOMI, PERRL Lungs: expiratory wheezes, left anterior chest port in place Heart: +S1S2, tachy Abd: soft, NT, +BS, obese Ext: no edema A/P: This is a 46-year-old female patient with underlying medical history of type 2 diabetes, hypothyroidism, chronic obstructive pulmonary disease (COPD) with alpha 1 antitrypsin deficiency, posttraumatic stress disorder, bulging disc, insomnia, migraine, obesity, who presented with shortness of breath. 1. Shortness of breath with tachypneic, possibly secondary to bronchospasm versus COPD exacerbation with underlying alpha 1 antitrypsin deficiency. The patient will need followup with pulmonology. Is in the process of getting set up with pulmonology. Nebulizer treatments. Solu-Medrol. Rocephin and azithromycin, possibly underlying pneumonia. Will get CT of the chest with contrast to further delineate given the patient has had two episodes with admission recently. Nebulizer treatments. Solu-Medrol. Antibiotics as mentioned above. Taper steroids as tolerated. Singulair. Continue Symbicort. 2. IDDM - worsening with steroids. - continue with q6h sliding scale 3. Hypothyroidism. Continue Synthroid. 4. Bulging disc. Continue current medications. 5. Insomnia/migraine. Continue current medication. 6. Obesity complicating care. 7. Transaminitis. Followup hepatitis panel. Right upper quadrant ultrasound. Continue to follow. Followed up international normalized ratio (INR). 8. Deep venous thrombosis (DVT) prophylaxis. Heparin subcutaneous. 9. Posttraumatic stress disorder. 10. Questionable history of sleep apnea. 11. Tachycardia - chronic, sinus 12. HTN - continue HCTZ, lisinopril 13. GI prophylaxis - protonix BID HOME MEDICATIONS: - Fioricet by mouth every four hours as needed - Ventolin inhaler every four hours as needed - DuoNeb every four hours as needed - Abilify 10 mg by mouth at bedtime - Symbicort 160/4.5 inhalation twice a day - buspirone 20 mg by mouth twice a day - Cymbalta 120 mg by mouth at bedtime - gabapentin 300 mg by mouth three times a day - gemfibrozil 600 mg by mouth daily - meloxicam 15 mg by mouth daily - Singulair 10 mg by mouth daily - prednisone 40 mg by mouth daily - trazodone 200 mg by mouth at bedtime DISPOSITION: Anticipating discharge in 24 hours. VS,Fishbone, I+O VS, Fishbone, I+O Laboratory Tests 01/01/17 04:48 Red Blood Count 3.45 L, Mean Corpuscular Volume 91.9, Mean Corpuscular Hemoglobin 28.7, Mean Corpuscular Hemoglobin Concent 31.2 L, Red Cell Distribution Width 17.3 H, Calcium Level 8.5, Aspartate Amino Transf (AST/SGOT) 16, Alanine Aminotransferase (ALT/SGPT) 67, Alkaline Phosphatase 175 H, Total Bilirubin 0.1 L, Total Protein 6.3 L, Albumin 3.1 L Vital Signs Date Time Temp Pulse Resp B/P (MAP) Pulse Ox O2 Delivery O2 Flow Rate FiO2 01/01/17 06:31 97.2 100 16 134/91 (105) 96 Room Air ADALBERTO RAI MD Jan 01, 2017 07:44
[2017-01-01] MEDS: LEVEMIR (INSULIN DETEMIR) 1 UNITS/0.01ML SC SCH ×2 (08:25→20:52)
[2017-01-01] MEDS: HumaLOG INSULIN (NovoLOG) PER UNIT SC SCH ×3 (08:25→17:15)
[2017-01-01] MEDS: predniSONE 5MG/5ML SOLN ORAL SYRINGE PO SCH (08:26)
[2017-01-01] MEDS: PANTOPRAZOLE 40MG TAB (PROTONIX) PO SCH ×2 (08:26→20:51)
[2017-01-01] MEDS: busPIRone 10 MG TAB PO SCH ×2 (08:27→20:50)
[2017-01-01] MEDS: MELOXICAM (MOBIC) 7.5 MG TAB PO SCH (08:27)
[2017-01-01] MEDS: GABAPENTIN 300 MG CAP PO SCH ×3 (08:27→20:51)
[2017-01-01] MEDS: hydroCHLOROthiazide 25 MG TAB PO SCH (08:27)
[2017-01-01] MEDS: SENOKOT S TAB PO SCH ×2 (08:27→20:52)
[2017-01-01] MEDS: MONTELUKAST 10 MG TAB PO SCH (08:27)
[2017-01-01] MEDS: LISINOPRIL 10 MG TAB PO SCH (08:27)
[2017-01-01] MEDS: GEMFIBROZIL 600 MG TAB PO SCH (08:27)
[2017-01-01] MEDS: SYMBICORT 160/4.5MCG INHALER 6GM INH SCH ×2 (09:11→19:51)
[2017-01-01 14:00] VITALS: BP 149/94
[2017-01-01 20:01] VITALS: BP 122/80
[2017-01-01] MEDS: traZODone 100 MG TAB PO SCH (20:50)
[2017-01-01] MEDS: ARIPiprazole 10 MG TAB PO SCH (20:51)
[2017-01-01] MEDS: DULoxetine 30 MG CAP (CYMBALTA) PO SCH (20:51)
[2017-01-02] MEDS: cefTRIAXone SOD 2 GM in D5W 50 ML IV SCH (00:53)
[2017-01-02] MEDS: IPRATROPIUM 0.5MG/ALBUTEROL 2.5MG INH SOL UD 3ML (DUONEB)(J7620) NEB SCH ×3 (01:58→13:11)
[2017-01-02 05:33] LABS: MEAN CORPUSCULAR HEMOGLOBIN 28.7 pg (27.0-33.0); MEAN CORPUSCULAR HGB CONC 31.1 g/dl (32.0-36.5); MEAN CORPUSCULAR VOLUME 92.2 fl (80.0-96.0); RED CELL DISTRIBUTION WIDTH 17.1 % (11.5-14.5); WHITE BLOOD COUNT 10.7 10^3/uL (4.0-10.0)
[2017-01-02 06:00] VITALS: BP 135/96
[2017-01-02 06:00] LABS: ALBUMIN 2.9 GM/DL (3.2-5.2); ALKALINE PHOSPHATASE 148 U/L (45-117); ALT/SGPT 67 U/L (12-78); ANION GAP 7 MEQ/L (8-16); AST/SGOT 24 U/L (15-37); BILIRUBIN,TOTAL 0.1 MG/DL (0.2-1.0); BLOOD UREA NITROGEN 27 MG/DL (7-18); CALCIUM LEVEL 8.9 MG/DL (8.5-10.1); CARBON DIOXIDE LEVEL 32 MEQ/L (21-32); CHLORIDE LEVEL 102 MEQ/L (98-107); CREATININE FOR GFR 0.66 MG/DL (0.55-1.02); GLOMERULAR FILTRATION RATE > 60.0 (>58); GLUCOSE, FASTING 149 MG/DL (70-105); MAGNESIUM LEVEL 1.7 MG/DL (1.8-2.4); POTASSIUM SERUM 3.5 MEQ/L (3.5-5.1); SODIUM LEVEL 141 MEQ/L (136-145); TOTAL PROTEIN 5.8 GM/DL (6.4-8.2)
[2017-01-02] MEDS: HEPARIN SOD (PORCINE) 5000 UNITS/ML VIAL SC SCH ×2 (06:06→13:17)
[2017-01-02] MEDS: LEVOTHYROXINE 25MCG TABLET (0.025MG) PO SCH (06:06)
[2017-01-02] MEDS: SYMBICORT 160/4.5MCG INHALER 6GM INH SCH (08:07)
[2017-01-02] MEDS: LEVEMIR (INSULIN DETEMIR) 1 UNITS/0.01ML SC SCH (08:59)
[2017-01-02] MEDS: HumaLOG INSULIN (NovoLOG) PER UNIT SC SCH ×2 (08:59→12:25)
[2017-01-02] MEDS: MELOXICAM (MOBIC) 7.5 MG TAB PO SCH (08:59)
[2017-01-02 09:00] VITALS: BP 120/91
[2017-01-02] MEDS: GABAPENTIN 300 MG CAP PO SCH (09:00)
[2017-01-02] MEDS: SENOKOT S TAB PO SCH (09:00)
[2017-01-02] MEDS: PANTOPRAZOLE 40MG TAB (PROTONIX) PO SCH (09:00)
[2017-01-02] MEDS: hydroCHLOROthiazide 25 MG TAB PO SCH (09:00)
[2017-01-02] MEDS: MONTELUKAST 10 MG TAB PO SCH (09:00)
[2017-01-02] MEDS: LISINOPRIL 10 MG TAB PO SCH (09:00)
[2017-01-02] MEDS: busPIRone 10 MG TAB PO SCH (09:00)
[2017-01-02] MEDS: GEMFIBROZIL 600 MG TAB PO SCH (09:00)
[2017-01-02] MEDS: predniSONE 5MG/5ML SOLN ORAL SYRINGE PO SCH (09:01)
[2017-01-02] MEDS ORDERED: AZIT500T2 PO (09:25)
[2017-01-02] MEDS ORDERED: DOXY-278 PO (09:25)
[2017-01-02] MEDS ORDERED: CEFD1CAP8 PO (09:54)
--- NOTE | 2017-01-02 11:39 | DS.PDOC ---
Discharge Summary General Date of Admission Dec 30, 2016 at 21:31 Date of Discharge 01/02/17 Attending Physician: ADALBERTO RAI MD Discharge Summary PCP: Dr. Davidson PROCEDURES PERFORMED DURING STAY: None ADMITTING DIAGNOSES: 1. Shortness of breath with tachypnea, secondary to bronchospasm versus COPD exacerbation. 2. Bronchitis. 3. Hyperglycemia, Diabetes. 4. Alpha1 antitrypsin deficiency DISCHARGE DIAGNOSES: 1. Bronchitis. 2. Diabetes. 3. Alpha1 antitrypsin deficiency COMPLICATIONS/CHIEF COMPLAINT: Acute Asthma Exacerbation, Tachycardia. HISTORY OF PRESENT ILLNESS: Patient is a 46-year-old female who presents emergency room with cough and shortness of breath. Patient has a history of alpha 1 antitrypsin deficiency, COPD, hypothyroidism, type 2 diabetes, obesity, posttraumatic stress disorder. Patient had recently moved to [place] from [place]. Had recently been admitted on December 16 with severe exacerbation and was discharged 3 days later. The day before admission patient had developed severe shortness of breath with significant wheezing, cough presents emergency room. Cough is dry and nonproductive. Had been given multiple nebulizer treatments while in the ER and had minimal improvement. Subsequent she was admitted to the hospital service. HOSPITAL COURSE: While in the hospital patient had a chest x-ray performed which revealed no acute infiltrates. Patient had a CT of the chest which revealed evidence of bronchitis. Patient was started on methylprednisolone IV 1 time. Patient was then switched to liquid prednisone 40 mg daily. Patient takes oral prednisone at home, 40 mg. She cannot tolerate the pill form but can tolerate the liquid form. She is also started on antibiotics. Patient was started on azithromycin 500 mg daily as well as ceftriaxone 2 g daily. Patient' s shortness of breath improved. Was able to maintain oxygen saturation and did not require oxygen. On admission patient's liver function enzymes were elevated. Patient had a right upper quadrant ultrasound performed which showed fatty liver. Patient had a cholecystectomy previously, this was shown on ultrasound. INR was normal. DISCHARGE MEDICATIONS: Please see below. ALLERGIES: Please see below. PHYSICAL EXAMINATION ON DISCHARGE: VITAL SIGNS: Please see below. GENERAL: Alert and cooperative. No acute distress. HEENT: Atraumatic. Nares patent. No rhinorrhea on exam. NECK: No masses or tracheal deviation. CARDIOVASCULAR EXAMINATION: Normal S1 and S2. No murmurs. RESPIRATORY EXAMINATION: Mild wheezing bilaterally. ABDOMINAL EXAMINATION: Soft nondistended. Bowel sounds auscultation. EXTREMITIES: No edema. SKIN: No new rashes or lesions. NEUROLOGICAL EXAMINATION: Speech intact. PSYCHIATRIC EXAMINATION: Normal affect. LABORATORY DATA: Please see below. IMAGING: CT of chest without contrast impression showed Bronchitis. Chest radiograph impression showed No acute infiltrate. Right upper quadrant ultrasound impression showed Fatty liver. Cholecystectomy. Nondilated biliary tree. PROGNOSIS: Patient is a 46-year-old female presenting with cough and shortness of breath. ACTIVITY: As tolerated. DIET: Consistent carbohydrate DISCHARGE PLAN: Home DISPOSITION: Discharge patient home. DISCHARGE INSTRUCTIONS: 1. Follow with primary care physician at scheduled appointment. 2. Establish care with beautician apprentice. 3. Continued to take azithromycin and cefdinir for the next 5 days. Continue home dose of prednisone liquid 40 mg daily. DISCHARGE CONDITION: Stable TIME SPENT ON DISCHARGE: Greater than 30 Minutes. Vital Signs/I&Os Vital Signs Date Time Temp Pulse Resp B/P (MAP) Pulse Ox O2 Delivery O2 Flow Rate FiO2 01/02/17 09:00 120/91 01/02/17 09:00 Room Air 01/02/17 06:00 97.8 88 16 95 I&O- Last 24 Hours up to 6 AM 01/03/17 06:00 Intake Total 480 ml Balance 480 ml Laboratory Data Labs 24H Laboratory Tests 2 01/01/17 11:41: Bedside Glucose (Misc Panel) 154H 01/01/17 16:29: Bedside Glucose (Misc Panel) 383H 01/02/17 05:20: Nucleated Red Blood Cells % (auto) 0.0, Anion Gap 7L, Glomerular Filtration Rate > 60.0, Blood Urea Nitrogen 27H, Creatinine 0.66, Sodium Level 141, Potassium Level 3.5, Chloride Level 102, Carbon Dioxide Level 32, Calcium Level 8.9, Aspartate Amino Transf (AST/SGOT) 24, Alanine Aminotransferase (ALT/SGPT) 67, Alkaline Phosphatase 148H, Total Bilirubin 0.1L, Total Protein 5.8L, Albumin 2.9L, Magnesium Level 1.7L, C-Reactive Protein, Quantitative 0.83H, Albumin/Globulin Ratio 1.00 CBC/BMP Laboratory Tests 01/02/17 05:20 Red Blood Count 3.45 L, Mean Corpuscular Volume 92.2, Mean Corpuscular Hemoglobin 28.7, Mean Corpuscular Hemoglobin Concent 31.1 L, Red Cell Distribution Width 17.1 H, Calcium Level 8.9, Aspartate Amino Transf (AST/SGOT) 24, Alanine Aminotransferase (ALT/SGPT) 67, Alkaline Phosphatase 148 H, Total Bilirubin 0.1 L, Total Protein 5.8 L, Albumin 2.9 L FSBS Laboratory Tests Test 01/01/17 11:41 01/01/17 16:29 Range/Units Bedside Glucose (Misc Panel) 154 383 70-105 MG/DL Microbiology Microbiology 12/30/16 Blood Culture - Preliminary, Resulted No Growth after 48 hours. All Specime... 12/30/16 Blood Culture - Preliminary, Resulted No Growth after 48 hours. All Specime... 12/30/16 Respiratory Virus Panel (PCR) ([facility]) - Final, Complete Discharge Medications Scheduled Aripiprazole (Abilify) 10 Mg Tab, 10 MG PO QHS, (Reported) Azithromycin (Azithromycin) 500 Mg Tab, 500 MG PO DAILY Budesonide/Formoterol (Symbicort 160-4.5 Mcg/Act) 60 Puff/Inhaler Aers, 2 PUFF INH BID, (Reported) Buspirone HCl (Buspirone HCl) 10 Mg Tab, 20 MG PO TID, (Reported) Cefdinir (Cefdinir) 300 Mg Cap, 300 MG PO Q12H Duloxetine Hcl (Cymbalta) 60 Mg Cap, 120 MG PO QHS, (Reported) Gabapentin (Gabapentin) 300 Mg Cap, 300 MG PO TID, (Reported) Gemfibrozil (Gemfibrozil) 600 Mg Tab, 600 MG PO DAILY, (Reported) Hydrochlorothiazide (Hydrochlorothiazide) 25 Mg Tab, 25 MG PO DAILY, (Reported) Insulin Detemir (Levemir) 1 Units/0.01 Ml Susp, 60 UNITS SC BID, (Reported) Insulin Human Lispro (Humalog) 1 Units/0.01 Ml Inj, 1 DOSE SC ACHS, (Reported) PER ULTRA HIGH SLIDING SCALE Levothyroxine Sodium (Synthroid) 25 Mcg Tab, 25 MCG PO DAILY, (Reported) Lisinopril (Lisinopril) 10 Mg Tab, 10 MG PO DAILY, (Reported) Meloxicam (Meloxicam) 15 Mg Tab, 15 MG PO DAILY, (Reported) Montelukast Sodium (Singulair) 10 Mg Tab, 10 MG PO DAILY, (Reported) Pantoprazole Sodium Sesquihydr (Protonix) 40 Mg Tab, 40 MG PO BID, (Reported) Prednisone (Prednisone) 5 Mg/5 Ml Sunday, 40 MG PO DAILY, (Reported) Trazodone HCl (Trazodone HCl) 100 Mg Tab, 200 MG PO QHS, (Reported) Scheduled PRN Acetamin/Butalbital/Caffeine (Fioricet 50-300-40 mg) 1 Cap Cap, 1 CAP PO Q4H PRN for MIGRAINE, (Reported) Albuterol Sulfate (Ventolin Hfa) 108 Mcg/Act Aer, 216 MCG INH Q4H PRN for SHORTNESS OF BREATH, (Reported) Albuterol/Ipratropium (Ipratropium [place]/Albut 0.5-2.5 (3) mg/3Ml) 1 Sunday Sunday, 1 SUNDAY INH Q4H PRN for SHORTNESS OF BREATH, (Reported) Allergies Coded Allergies: Meclizine (Unverified Allergy, Severe, ANAPHYLAXIS, 12/30/16) I BELIEVE SHE IS MISTAKING THE MEDICATION SHE SAID IT WAS FOR NAUSEA Prednisone (Verified Allergy, Unknown, ORAL SOLID DOSAGE FORM ONLY, ) CAN TAKE LIQUID Metformin (Unverified Adverse Reaction, Severe, PROBLEMS WITH KIDNEYS, ) GME ATTESTATION GME ATTESTATION My preceptor for this patient encounter was physically present in the building during the encounter and was fully available. As needed, all aspects of the patient interview, examination, medical decision making process, and medical care plan development were reviewed and approved by the preceptor. Preceptor is aware and concurs with the plan as stated in the body of this note and will attest to such by his/her cosignature. ADALBERTO ANGELES DO Jan 02, 2017 11:39
[2017-01-02] MEDS: SODIUM CHLORIDE 0.9% INJ 10 ML SYR IV PRN (12:32)
== END 2017-01-02 13:50 | disposition home or self-care (01) ==
LOC: M ED 21:30 → M ED INP 21:31 → M ICU 12-31 02:31 → M MSPAV 12-31 14:06 → M MS4PR 12-31 21:32
PROVIDERS: ADMIT Hospitalist; ATTEND Internal Medicine
DX: J20.9 Acute bronchitis, unspecified (principal); E11.9 Type 2 diabetes mellitus without complications; E88.01 Alpha-1-antitrypsin deficiency; J44.9 Chronic obstructive pulmonary disease, unspecified; E03.9 Hypothyroidism, unspecified; E66.9 Obesity, unspecified; F43.10 Post-traumatic stress disorder, unspecified; Z79.4 Long term (current) use of insulin; Z79.899 Other long term (current) drug therapy; Z88.8 Allergy status to other drugs, medicaments and biological substances; G47.00 Insomnia, unspecified; Z87.891 Personal history of nicotine dependence
CPT/HCPCS: 36600; 71010; 71250; 76705; 80048; 80053; 80076; 82550; 82553; 82803; 82977; 83735; 83880; 85025; 85027; 85610; 86140; 86705; 86709; 86803; 87040; 87340; 87486; 87581; 87633; 87798; 93005; 93041; 94640; 94760; 96365; 96366; 96367; 96374; 96376; 99285; J0456; J0696; J2920; J2930; J3475

== ENCOUNTER 2017-03-01 12:08 | Inpatient (IN) | payer MEDICAID, OTHER ==
[~2017-03-01] VITALS: Ht 162.6 cm; Wt 97.7 kg
[~2017-03-01 12:08] MED LIST changes: +AZIT500T2 PO; +CEFD1CAP8 PO; +DOXY-278 PO; +FIOR1CAP PO; +GEMF600T PO; +HYDR25TAB PO; -HumaLOG INSULIN (NovoLOG) PER UNIT SC SCH; +MELO15TA4 PO; +PRED5EL PO; +SYNT25TA PO; +VENTAER INH
[2017-03-01] MEDS: IPRATROPIUM 0.5MG/ALBUTEROL 2.5MG INH SOL UD 3ML (DUONEB)(J7620) NEB PRN ×3 (12:49→13:35)
[2017-03-01 12:55] LABS: BASO # 0.1 10^3/uL (0.0-0.2); BASO % 0.6 % (0.0-1.0); EOS # 0.1 10^3/uL (0.0-0.50); IMMATURE GRANULOCYTE % 0.4 % (0-0); LYMPH # 3.4 10^3/uL (1.5-4.5); LYMPH % 27.8 % (24.0-44.0); MEAN CORPUSCULAR HEMOGLOBIN 28.9 pg (27.0-33.0); MEAN CORPUSCULAR HGB CONC 31.8 g/dl (32.0-36.5); MEAN CORPUSCULAR VOLUME 90.8 fl (80.0-96.0); MONO # 1.1 10^3/uL (0.0-0.8); MONO % 9.1 % (0.0-5.0); NEUTROPHILS # 7.5 10^3/uL (1.8-7.7); NEUTROPHILS % 61.1 % (36.0-66.0); PLATELET COUNT, AUTOMATED 368 10^3/uL (150-450); RED CELL DISTRIBUTION WIDTH 14.2 % (11.5-14.5); WHITE BLOOD COUNT 12.2 10^3/uL (4.0-10.0)
[2017-03-01] MEDS ORDERED: MAG SULF 1GM/100ML (MAG RUN) 1 GM in APPROPRIATE DILUENT 1 EA IV ONE (13:00)
[2017-03-01] MEDS ORDERED: methylPREDNISolone INJ 125 MG/2 ML VIAL (J2930) IV ONE (13:00)
[2017-03-01 13:09] LABS: CONTROL LINE HCG INT CTR LINE PRESENT
[2017-03-01 13:20] LABS: ANION GAP 12 MEQ/L (8-16); BLOOD UREA NITROGEN 15 MG/DL (7-18); CALCIUM LEVEL 9.5 MG/DL (8.5-10.1); CARBON DIOXIDE LEVEL 23 MEQ/L (21-32); CHLORIDE LEVEL 100 MEQ/L (98-107); CREATININE FOR GFR 0.99 MG/DL (0.55-1.02); GLOMERULAR FILTRATION RATE > 60.0 (>58); GLUCOSE, FASTING 330 MG/DL (70-105); POTASSIUM SERUM 3.9 MEQ/L (3.5-5.1); SODIUM LEVEL 135 MEQ/L (136-145)
[2017-03-01 13:28] LABS: ALBUMIN 3.9 GM/DL (3.2-5.2); ALBUMIN/GLOBULIN RATIO 0.93 (1.00-1.93); BILIRUBIN,DIRECT 0.1 MG/DL (0.0-0.2); BILIRUBIN,TOTAL 0.5 MG/DL (0.2-1.0); MAGNESIUM LEVEL 1.7 MG/DL (1.8-2.4); THYROXINE (T4) 12.3 UG/DL (4.5-12.0); TOTAL PROTEIN 8.1 GM/DL (6.4-8.2)
[2017-03-01] MEDS ORDERED: NS 1,000 ML IV SCH (13:30)
[2017-03-01 13:47] LABS: ABG BASE EXCESS -3.9 (-2.0-2.0); ABG HCO3 20.4 MEQ/L (22.0-26.0); ABG PARTIAL PRESSURE CO2 35.2 mmHg (35.0-45.0); ABG PARTIAL PRESSURE O2 168.3 mmHg (75.0-100.0); ABG STANDARD HCO3 21.2 MEQ/L (22.0-26.0); ABG TOTAL CO2 21.5 MEQ/L (22.0-29.0); ABG pH (ARTERIAL) 7.382 UNITS (7.350-7.450)
[2017-03-01] MEDS ORDERED: LEVALBUTEROL 1.25 MG/0.5 ML CONCENTRATE NEB NEB PRN (14:15)
--- NOTE | 2017-03-01 14:28 | REP ---
Portable chest, 01:28 p.m., single AP view the patient semi upright: Comparison is 12/30/2016. Lung jara are clear. Cardiac size normal. The harriet, mediastinum, and bony thorax are unremarkable. An indwelling [id number]-[id number] catheter is again identified entering from a left subclavian approach with the tip in the superior vena cava in satisfactory location, unchanged. Impression: No acute cardiopulmonary findings. Left subclavian indwelling central venous catheter. Signed by Emir Velasquez MD 03/01/2017 02:19 P
[2017-03-01] MEDS ORDERED: DEXTROSE 50% 50 ML SYRINGE IV PRN (15:00)
[2017-03-01] MEDS ORDERED: GLUCAGON FOR INJ 1 MG VIAL (J1610) SC PRN (15:00)
[2017-03-01] MEDS ORDERED: FIORICET TAB PO PRN (15:00)
[2017-03-01] MEDS ORDERED: CEFTRIAXONE SOD 2 GM in APPROPRIATE DILUENT 1 EA IV ONE (15:00)
[2017-03-01] MEDS ORDERED: GLUCOSE 4 GM CHEW TABLET PO PRN (15:00)
[2017-03-01] MEDS ORDERED: ISOVUE-370 76% 100ML VIAL (Q9967) As Ordered ONE (15:14)
--- NOTE | 2017-03-01 15:25 | HPE ---
DATE OF ADMISSION: 03/01/2017 PRIMARY CARE PROVIDER: Hue Davidson CHIEF COMPLAINT: Shortness of breath, cough. HISTORY OF PRESENT ILLNESS: 46-year-old female with a history of alpha 1 antitrypsin deficiency, chronic obstructive pulmonary disease (COPD), asthma, who presents to the emergency room with 2-day history of worsening shortness of breath with cough productive of white sputum. The patient denies any documented fever. No chills, nausea, vomiting, epigastric discomfort, palpitations, lightheadedness, usually not on oxygen. Complained of feeling unwell and weak. Found to be tachycardic in the emergency room of 140 heart rate. Sinus rhythm. The patient had similar episodes in December 2015 and was admitted for intravenous steroids. No prior history of intubation. PAST MEDICAL HISTORY: 1. COPD. 2. Asthma. 3. Alpha 1 antitrypsin deficiency. 4. Posttraumatic stress disorder (PTSD). 5. Bulging discs. 6. Insomnia. 7. Migraines. 8. Obesity. 9. Hypothyroidism. 10. Diabetes. 11. Questionable history of sleep apnea. PAST SURGICAL HISTORY: 1. Tonsillectomy. 2. Cholecystectomy. 3. section. SOCIAL HISTORY: Recently moved to [place] from [place]. Quit smoking 6 years ago, one pack a day for over 20 years. Occasional alcohol use once a week. FAMILY HISTORY: Skin cancer. Denies family history of lung cancer or liver cirrhosis. REVIEW OF SYSTEMS: As per history of present illness. 12-point system otherwise negative. HOME MEDICATIONS: - Fioricet by mouth every 4 hours as needed - Ventolin inhaler every 4 hours as needed - DuoNeb every 4 hours as needed - Abilify 10 mg at night - Symbicort 160/4.5 inhaled twice a day - buspirone 20 mg twice a day - Cymbalta 120 mg at night - gabapentin 300 mg three times a day - gemfibrozil 600 mg daily - hydrochlorothiazide 25 mg daily - Levemir 60 mg twice a day - Humalog before food and nightly by sliding scale - Synthroid 25 mcg daily - Lisinopril 10 mg daily - meloxicam 5 mg daily - Singulair 10 mg daily - Protonix 40 mg twice a day - trazodone 200 mg at night PHYSICAL EXAMINATION: Temperature 98.6, pulse 152. Current pulse is 89, respiratory rate 24. 97% on room air. Blood pressure is 135/91. GENERAL: The patient is in mild distress but able to speak in full sentences. No use of respiratory accessory muscles. Pupils are round and reactive. Extraocular muscles are intact. Anicteric sclerae. No jaundice. No jugular venous distention (JVD) or thyromegaly or cervical lymphadenopathy. Moist mucous membranes. LUNGS: Diminished with prolonged expiration. Bilateral expiratory wheezing. HEART: S1, S2. Sinus tachycardia. ABDOMEN: Obese, soft, nontender, nondistended. Positive bowel sounds. EXTREMITIES: No cyanosis or clubbing. White count 12.3, hemoglobin 12, hematocrit 39, platelet count 368. Sodium 135, potassium 3.9, chloride 100, bicarbonate 23, BUN 15, creatinine 0.9, glucose 330. Lactic acid 7, magnesium 1.7, total bilirubin 0.5, direct bilirubin 0.1, AST 30, ALT 67, alkaline phosphatase 186. C-reactive protein 1.98. BNP 18. Total protein 8.1. Albumin 3.9, TSH 1.3. Blood culture pending. Respiratory panel pending. Chest x-ray: No acute cardiopulmonary disease. Left subclavian indwelling venous catheter. IMAGING STUDIES: Chest x-ray with no acute cardiopulmonary findings. Left subclavian indwelling central venous catheter. ASSESSMENT AND PLAN: 46-year-old female with a history of alpha 1 antitrypsin deficiency, asthma, chronic obstructive pulmonary disease (COPD), who recently moved from [place], obesity, insulin-dependent diabetic, hypothyroidism, posttraumatic stress disorder (PTSD), bulging discs, insomnia, migraines, not on oxygen, receiving weekly injections in [place] and recently admitted on 12/16/2016 and again on 12/30/2016 with respiratory distress with IV steroids. Now presents with a 2-day history of cough, wheezing, worsening shortness of breath. CURRENT ISSUES: 1. Acute respiratory distress with tachypnea secondary to possible COPD exacerbation with a known history of alpha 1 antitrypsin deficiency. The patient has not been seen by a panel cutter in this area. She has recently moved from [place]. Continue with Solu-Medrol. Due to significant tachycardia, change to Xopenex nebulizers, proton pump inhibitor, supplemental oxygen to keep saturations 88 to 92%. Rocephin, azithromycin. Check CT of the chest to rule out pulmonary embolism. 2. Supraventricular tachycardia (SVT) secondary to significant respiratory distress. The patient improved to 80s with no intervention. Once respiratory status improves, rule out pulmonary embolism with CT of the chest. 3. Type 2 diabetes. Consistent carbohydrate diet. Insulin sliding scale. Resume home regimen of insulin. Check A1/c. 4. Hyperlipidemia. Check a lipid profile. 5. History of posttraumatic stress disorder (PTSD) and depression. Continue on Abilify and Cymbalta. 6. Chronic pain. Continue on gabapentin. 7. Hypothyroidism. Continue Synthroid. 8. Hypertension. Continue Lisinopril. The patient will be assigned to Dr. Christelle Cruz at 7:00 p.m. on 03/01/2017. NAYED
[2017-03-01] MEDS ORDERED: hydrALAZINE INJ 20 MG/ML VIAL IV STA (15:56)
[2017-03-01] MEDS ORDERED: METOPROLOL 5 MG/5 ML VIAL IV STA (15:57)
[2017-03-01] MEDS ORDERED: AZITHROMYCIN INJ 500 MG, VIAL MATE ADAPTER 1 EACH in D5W 250 ML IV ONE (16:00)
[2017-03-01] MEDS ORDERED: MORPHINE 2 MG/ML 1ML SYRINGE IV ONE (17:15)
[2017-03-01 18:00] VITALS: BP 143/96
[2017-03-01] MEDS: HumaLOG INSULIN (NovoLOG) PER UNIT SC SCH ×2 (18:50→21:04)
[2017-03-01] MEDS: GABAPENTIN 300 MG CAP PO SCH (18:50)
[2017-03-01] MEDS: busPIRone 10 MG TAB PO SCH ×2 (18:50→20:51)
--- NOTE | 2017-03-01 19:40 | ECGEPIP ---
Stationary ECG Study [facility] - ED Test Date: 2017-03-01 Pat Name: PATY CRYSTAL Department: Room: [place] [address] Gender: F Wildlife Photographer: erick : 1970 Requested By: RAMIREZ DE DIOS Order Number: [id number] Reading MD: Kika Horn Measurements Intervals [place] Rate: 143 P: 26 DE: 165 QRS: -4 QRSD: 76 T: 55 QT: 341 QTc: 526 Interpretive Statements SINUS TACHYCARDIA, POSSIBLE ATRIAL FLUTTER ANTEROSEPTAL MYOCARDIAL INFARCTION, PROBABLY OLD CLINICAL CORRELATION ADVISED CW 12/30/16 RATE INCREASED POSSIBLE RHYTHM CHANGE Electronically Signed On 03-01-2017 19:39:53 EST by Kika Horn
[2017-03-01] MEDS: SYMBICORT 160/4.5MCG INHALER 6GM INH SCH (19:45)
[2017-03-01] MEDS: LEVALBUTEROL 1.25 MG/0.5 ML CONCENTRATE NEB NEB SCH (19:45)
[2017-03-01] MEDS: methylPREDNISolone INJ 125 MG/2 ML VIAL (J2930) IV SCH (20:50)
[2017-03-01] MEDS: PANTOPRAZOLE 40MG TAB (PROTONIX) PO SCH (20:51)
[2017-03-01] MEDS: LEVEMIR (INSULIN DETEMIR) 1 UNITS/0.01ML SC SCH (20:51)
[2017-03-01] MEDS: traZODone 100 MG TAB PO SCH (20:51)
[2017-03-01] MEDS: ARIPiprazole 10 MG TAB PO SCH (20:51)
[2017-03-01] MEDS: DULoxetine 30 MG CAP (CYMBALTA) PO SCH (20:52)
[2017-03-01] MEDS: ENOXAPARIN 40 MG/0.4 ML SYRINGE (J1650) SC SCH (20:52)
[2017-03-01] MEDS ORDERED: MORPHINE 2 MG/ML 1ML SYRINGE IV PRN (21:00)
[2017-03-01 22:00] VITALS: BP 145/98
[2017-03-02] MEDS: LEVALBUTEROL 1.25 MG/0.5 ML CONCENTRATE NEB NEB SCH ×4 (01:38→20:00)
[2017-03-02] MEDS: LEVOTHYROXINE 25MCG TABLET (0.025MG) PO SCH (05:40)
[2017-03-02] MEDS: methylPREDNISolone INJ 125 MG/2 ML VIAL (J2930) IV SCH ×3 (05:40→21:19)
[2017-03-02 06:01] LABS: MEAN CORPUSCULAR HGB CONC 32.2 g/dl (32.0-36.5); MEAN CORPUSCULAR VOLUME 89.9 fl (80.0-96.0); PLATELET COUNT, AUTOMATED 283 10^3/uL (150-450); RED CELL DISTRIBUTION WIDTH 14.4 % (11.5-14.5); WHITE BLOOD COUNT 11.2 10^3/uL (4.0-10.0)
[2017-03-02 06:30] LABS: ANION GAP 10 MEQ/L (8-16); BLOOD UREA NITROGEN 15 MG/DL (7-18); CALCIUM LEVEL 8.9 MG/DL (8.5-10.1); CARBON DIOXIDE LEVEL 22 MEQ/L (21-32); CHLORIDE LEVEL 105 MEQ/L (98-107); CREATININE FOR GFR 0.61 MG/DL (0.55-1.02); GLOMERULAR FILTRATION RATE > 60.0 (>58); GLUCOSE, FASTING 328 MG/DL (70-105); POTASSIUM SERUM 4.3 MEQ/L (3.5-5.1); SODIUM LEVEL 137 MEQ/L (136-145)
[2017-03-02] MEDS: HumaLOG INSULIN (NovoLOG) PER UNIT SC SCH ×4 (07:30→21:20)
[2017-03-02] MEDS: SYMBICORT 160/4.5MCG INHALER 6GM INH SCH ×2 (07:38→20:37)
[2017-03-02 08:15] LABS: MAGNESIUM LEVEL 1.8 MG/DL (1.8-2.4)
[2017-03-02] MEDS: LEVEMIR (INSULIN DETEMIR) 1 UNITS/0.01ML SC SCH ×2 (09:00→21:19)
[2017-03-02] MEDS ORDERED: PANTOPRAZOLE 40MG TAB (PROTONIX) PO SCH (09:00)
[2017-03-02] MEDS: GABAPENTIN 300 MG CAP PO SCH ×3 (10:25→17:25)
[2017-03-02] MEDS: busPIRone 10 MG TAB PO SCH ×3 (10:25→21:22)
[2017-03-02] MEDS: MELOXICAM (MOBIC) 7.5 MG TAB PO SCH (10:26)
[2017-03-02] MEDS: LISINOPRIL 10 MG TAB PO SCH (10:26)
[2017-03-02] MEDS: PANTOPRAZOLE 40MG TAB (PROTONIX) PO SCH ×2 (10:26→21:18)
[2017-03-02] MEDS: MONTELUKAST 10 MG TAB PO SCH (10:27)
[2017-03-02] MEDS: GEMFIBROZIL 600 MG TAB PO SCH (10:27)
[2017-03-02] MEDS: PERCOCET 5MG/325MG TAB PO PRN ×2 (10:43→21:18)
[2017-03-02 14:00] VITALS: BP 119/77
[2017-03-02] MEDS ORDERED: SUMAtriptan SUCCINATE 6 MG/0.5 ML VIAL SC PRN (14:15)
[2017-03-02] MEDS ORDERED: IBUPROFEN 600 MG TAB PO ONE (15:00)
[2017-03-02] MEDS ORDERED: CEFTRIAXONE SOD 2 GM in APPROPRIATE DILUENT 1 EA IV SCH (15:00)
--- NOTE | 2017-03-02 15:11 | ECGEPIP ---
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 NONSPECIFIC T-WAVE ABNORMALITY No significant change compared with 03/01/2017. Electronically Signed On 03-02-2017 15:11:12 EST by Fercho Cleveland
--- NOTE | 2017-03-02 15:50 | IPN ---
DATE: 03/02/2017 SUBJECTIVE: The patient tells me that she is feeling better than she did yesterday. She tells me that she still has some shortness of breath and is still coughing but it is better than yesterday. She coughed during the examination. OBJECTIVE: VITAL SIGNS: Temperature 96.8, pulse 118 and in sinus rhythm with no additional heart sounds appreciated. Respiratory rate 18. Blood pressure 145/98. Oxygen saturation 97% on 2 liters. GENERAL: She is an obese, middle aged, female lying in bed comfortably. Does not appear to be in any acute distress. She is speaking in complete sentences without any accessory muscle use. HEENT: Cranial nerves II through XII are grossly intact. She has moist mucous membranes. No elevation in central venous pressure. CARDIOVASCULAR EXAM: S1, S2. She is tachycardic but regular. RESPIRATORY EXAM: She has diminished breath sounds throughout and seems to be tight with poor air movement. ABDOMINAL EXAM: Benign. Obese. EXTREMITIES: No clubbing, cyanosis or edema. LABORATORY STUDIES: WBC 11.2, hemoglobin 10.9, platelets 283. Chemistry panel: Sodium 137, potassium 4.3, chloride 105, bicarbonate 22, BUN 15, creatinine 0.6. Lactic acid is improved from 7 to 3.8. Magnesium level this morning is 1.8. AST slightly elevated at 39, alkaline phosphatase elevated at 186. TSH within normal limits. HCG is negative. Microbiology: Respiratory PCR panel is negative. Blood cultures negative after 24 hours. IMAGING: The patient had a chest x-ray which revealed no acute cardiopulmonary processes. ASSESSMENT AND PLAN: This is a 46-year-old female with documented history of alpha 1 antitrypsin who was admitted with shortness of breath. 1. Shortness of breath. The patient has no baseline oxygen requirement at home, but she is currently requiring 2 liters and was reportedly even more hypoxic yesterday. There is a documented history of asthma and chronic obstructive pulmonary disease (COPD), although no spirometry of pulmonary function tests are available, given that she recently moved from [place]. This is her third hospitalization for cough and shortness of breath, which seems to be improve readily with steroids and nebulizer treatments. For the time being, we will continue her on Solu-Medrol, antibiotics and nebulizer treatments. However, I suspect that this can be quickly weaned tomorrow as she is improving quite quickly. 2. Sinus tachycardia. EKG was checked this morning. She is in sinus rhythm. There is no SVT. I feel it is likely related to her frequent nebulizer treatments. We will attempt to minimize these and space them out as her respiratory status has improved. We will wean her oxygen for saturations 88 to 92%. 3. Type 2 diabetes. She is on sliding scale insulin. Hemoglobin A1/c was checked this morning and it is quite elevated. She is on sliding scale insulin. Her fingersticks, at this time, are well controlled, and she is on insulin at home. 4. Posttraumatic stress disorder (PTSD) and anxiety. The patient is on buspirone, duloxetine. 5. Insomnia. The patient is on trazodone. 6. Migraines. The patient is on Abilify, meloxicam. 7. Seasonal allergies. She is on Singulair. 8. Hypothyroidism. She is on levothyroxine. 9. Dyslipidemia. She is on gemfibrozil. 10. Migraines. She is on Fioricet. However, she has a migraine at this time and I will provide her with additional abortive therapy. 11. Chronic pain. She is on gabapentin. 12. Hypertension, controlled for the time being without the aid of hydrochlorothiazide. She may require this prior to discharge. 13. Deep vein thrombosis (DVT) prophylaxis. Sequential compression device (SCD), thromboembolic compression stockings (TEDS) and Lovenox. DISPOSITION: Pending clinical improvement, she may be able to be discharged within the next 24 to 48 hours.
[2017-03-02] MEDS ORDERED: AZITHROMYCIN INJ 500 MG, VIAL MATE ADAPTER 1 EACH in D5W 250 ML IV SCH (16:00)
[2017-03-02] MEDS: DULoxetine 30 MG CAP (CYMBALTA) PO SCH (21:17)
[2017-03-02] MEDS: ARIPiprazole 10 MG TAB PO SCH (21:18)
[2017-03-02] MEDS: traZODone 100 MG TAB PO SCH (21:18)
[2017-03-02] MEDS: ENOXAPARIN 40 MG/0.4 ML SYRINGE (J1650) SC SCH (21:18)
[2017-03-02 22:00] VITALS: BP 137/95
[2017-03-03] MEDS: LEVALBUTEROL 1.25 MG/0.5 ML CONCENTRATE NEB NEB SCH (02:00)
[2017-03-03] MEDS: methylPREDNISolone INJ 125 MG/2 ML VIAL (J2930) IV SCH (05:41)
[2017-03-03] MEDS: LEVOTHYROXINE 25MCG TABLET (0.025MG) PO SCH (05:41)
[2017-03-03 05:43] LABS: MEAN CORPUSCULAR HGB CONC 31.9 g/dl (32.0-36.5); MEAN CORPUSCULAR VOLUME 90.9 fl (80.0-96.0); PLATELET COUNT, AUTOMATED 295 10^3/uL (150-450); RED CELL DISTRIBUTION WIDTH 14.6 % (11.5-14.5); WHITE BLOOD COUNT 13.4 10^3/uL (4.0-10.0)
[2017-03-03 06:00] VITALS: BP 133/84
[2017-03-03] MEDS ORDERED: LevoFLOXacin 500 MG TABLET PO SCH (06:00)
[2017-03-03 06:10] LABS: ANION GAP 7 MEQ/L (8-16); CALCIUM LEVEL 9.4 MG/DL (8.5-10.1); CARBON DIOXIDE LEVEL 28 MEQ/L (21-32); CHLORIDE LEVEL 102 MEQ/L (98-107); CREATININE FOR GFR 0.63 MG/DL (0.55-1.02); GLOMERULAR FILTRATION RATE > 60.0 (>58); GLUCOSE, FASTING 334 MG/DL (70-105); POTASSIUM SERUM 4.4 MEQ/L (3.5-5.1); SODIUM LEVEL 137 MEQ/L (136-145)
[2017-03-03 06:27] LABS: BLOOD UREA NITROGEN 25 MG/DL (7-18)
[2017-03-03] MEDS ORDERED: ALBUTEROL SULFATE 2.5 MG/0.5 ML INH NEB SOLN INH PRN (06:45)
[2017-03-03 07:13] LABS: ALBUMIN 3.5 GM/DL (3.2-5.2); ALBUMIN/GLOBULIN RATIO 0.83 (1.00-1.93); ALKALINE PHOSPHATASE 169 U/L (45-117); ALT/SGPT 44 U/L (12-78); AST/SGOT 14 U/L (7-37); BILIRUBIN,DIRECT < 0.1 MG/DL (0.0-0.2); BILIRUBIN,TOTAL 0.2 MG/DL (0.2-1.0); MAGNESIUM LEVEL 2.1 MG/DL (1.8-2.4); TOTAL PROTEIN 7.7 GM/DL (6.4-8.2)
[2017-03-03] MEDS: SYMBICORT 160/4.5MCG INHALER 6GM INH SCH (07:16)
[2017-03-03] MEDS ORDERED: LEVALBUTEROL 1.25 MG/0.5 ML CONCENTRATE NEB NEB SCH (08:00)
[2017-03-03] MEDS: busPIRone 10 MG TAB PO SCH (08:41)
[2017-03-03 08:42] VITALS: BP 133/84
[2017-03-03] MEDS: PANTOPRAZOLE 40MG TAB (PROTONIX) PO SCH (08:42)
[2017-03-03] MEDS: LISINOPRIL 10 MG TAB PO SCH (08:42)
[2017-03-03] MEDS: GABAPENTIN 300 MG CAP PO SCH ×2 (08:42→12:38)
[2017-03-03] MEDS: GEMFIBROZIL 600 MG TAB PO SCH (08:42)
[2017-03-03] MEDS: MONTELUKAST 10 MG TAB PO SCH (08:42)
[2017-03-03] MEDS: MELOXICAM (MOBIC) 7.5 MG TAB PO SCH (08:42)
[2017-03-03] MEDS: HumaLOG INSULIN (NovoLOG) PER UNIT SC SCH ×2 (08:43→12:39)
[2017-03-03] MEDS: LEVEMIR (INSULIN DETEMIR) 1 UNITS/0.01ML SC SCH (08:43)
[2017-03-03] MEDS ORDERED: predniSONE 5MG/5ML SOLN ORAL SYRINGE PO SCH (09:00)
[2017-03-03] MEDS ORDERED: SODIUM CHLORIDE 0.9% INJ 10 ML SYR IV SCH (09:00)
[2017-03-03] MEDS ORDERED: PRED5ELUD PO (12:01)
[2017-03-03] MEDS ORDERED: LEVA1TAB2 PO (12:01)
[2017-03-03] MEDS ORDERED: SODIUM CHLORIDE 0.9% INJ 10 ML SYR IV PRN (12:45)
[2017-03-03] MEDS ORDERED: INFLUENZA QUADRIVALENT PF VACCINE 0.5ML SYRINGE (90686) IM ONE (13:00)
[2017-03-03] MEDS ORDERED: PREVNAR 13 VACCINE SYRINGE (CPT CODE:90670) IM SCH (21:00)
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
== END 2017-03-03 14:15 | disposition home or self-care (01) | DRG 423 ==
LOC: M ED 12:08 → M ED INP 14:11 → M MS5PR 17:41
PROVIDERS: ADMIT General Practice; ATTEND Internal Medicine
DX: E88.01 Alpha-1-antitrypsin deficiency (principal); E11.40 Type 2 diabetes mellitus with diabetic neuropathy, unspecified; E87.2 Acidosis; J44.1 Chronic obstructive pulmonary disease with (acute) exacerbation; I47.1 Supraventricular tachycardia; E83.42 Hypomagnesemia; I10 Essential (primary) hypertension; G47.00 Insomnia, unspecified; E03.9 Hypothyroidism, unspecified; E78.5 Hyperlipidemia, unspecified; F43.10 Post-traumatic stress disorder, unspecified; G43.909 Migraine, unspecified, not intractable, without status migrainosus; F41.9 Anxiety disorder, unspecified; Z79.899 Other long term (current) drug therapy; Z87.891 Personal history of nicotine dependence; G89.29 Other chronic pain

== ENCOUNTER 2017-04-02 18:11 | Observation (INO) | payer OTHER ==
[2017-04-02] MEDS: ALBUTEROL SULFATE 2.5 MG/0.5 ML INH NEB SOLN INH (18:53)
[2017-04-02] MEDS: IPRATROPIUM 0.5MG/ALBUTEROL 2.5MG INH SOL UD 3ML (DUONEB)(J7620) NEB (18:53)
[2017-04-02 19:05] LABS: ABG BASE EXCESS -1.4 (-2.0-2.0); ABG HCO3 22.8 MEQ/L (22.0-26.0); ABG O2 SATURATION 95.4 % (95.0-99.0); ABG PARTIAL PRESSURE CO2 36.4 mmHg (35.0-45.0); ABG PARTIAL PRESSURE O2 75.8 mmHg (75.0-100.0); ABG STANDARD HCO3 23.3 MEQ/L (22.0-26.0); ABG TOTAL CO2 23.9 MEQ/L (22.0-29.0); ABG pH (ARTERIAL) 7.414 UNITS (7.350-7.450)
[2017-04-02] MEDS: NS 1,000 ML IV ×2 (19:15→20:26)
[2017-04-02 19:24] LABS: BASO # 0.1 10^3/uL (0.0-0.2); BASO % 0.6 % (0.0-1.0); EOS # 0.2 10^3/uL (0.0-0.50); EOS % 1.2 % (0.0-3.0); HEMATOCRIT 37.4 % (36.0-47.0); HEMOGLOBIN 12.1 g/dl (12.0-16.0); IMMATURE GRANULOCYTE # 0.1 10^3/uL (0-0); IMMATURE GRANULOCYTE % 0.6 % (0-0); LYMPH # 3.1 10^3/uL (1.5-4.5); LYMPH % 25.2 % (24.0-44.0); MEAN CORPUSCULAR HEMOGLOBIN 28.9 pg (27.0-33.0); MEAN CORPUSCULAR HGB CONC 32.4 g/dl (32.0-36.5); MEAN CORPUSCULAR VOLUME 89.3 fl (80.0-96.0); MONO # 0.7 10^3/uL (0.0-0.8); MONO % 5.9 % (0.0-5.0); NEUTROPHILS # 8.2 10^3/uL (1.8-7.7); NEUTROPHILS % 66.5 % (36.0-66.0); PLATELET COUNT, AUTOMATED 327 10^3/uL (150-450); RED BLOOD COUNT 4.19 10^6/uL (4.00-5.40); RED CELL DISTRIBUTION WIDTH 14.3 % (11.5-14.5); WHITE BLOOD COUNT 12.3 10^3/uL (4.0-10.0)
[2017-04-02 19:46] LABS: ALBUMIN 3.5 GM/DL (3.2-5.2); ALBUMIN/GLOBULIN RATIO 0.88 (1.00-1.93); ALKALINE PHOSPHATASE 234 U/L (45-117); ALT/SGPT 80 U/L (12-78); ANION GAP 15 MEQ/L (8-16); AST/SGOT 43 U/L (7-37); BILIRUBIN,DIRECT < 0.1 MG/DL (0.0-0.2); BILIRUBIN,TOTAL 0.2 MG/DL (0.2-1.0); BLOOD UREA NITROGEN 17 MG/DL (7-18); CALCIUM LEVEL 9.1 MG/DL (8.5-10.1); CARBON DIOXIDE LEVEL 22 MEQ/L (21-32); CHLORIDE LEVEL 97 MEQ/L (98-107); CPK CREATINE PHOSPHOKINASE 33 U/L (26-192); CREATININE FOR GFR 1.01 MG/DL (0.55-1.02); GLOMERULAR FILTRATION RATE > 60.0 (>58); POTASSIUM SERUM 3.9 MEQ/L (3.5-5.1); SODIUM LEVEL 134 MEQ/L (136-145); THYROXINE (T4) 11.7 UG/DL (4.5-12.0); TOTAL PROTEIN 7.5 GM/DL (6.4-8.2); TROPONIN I < 0.02 NG/ML (< 0.10)
[2017-04-02 19:51] LABS: MB/CK RELATIVE INDEX 3.03 (< OR =4)
[2017-04-02 19:57] LABS: GLUCOSE, FASTING 459 MG/DL (70-105)
[2017-04-02] MEDS: HumuLIN R (REGULAR) INSULIN (NovoLIN R) **100U/ML** PER UNIT IV (20:26)
[2017-04-02] MEDS ORDERED: DEXTROSE 50% 50 ML SYRINGE IV (20:30)
[2017-04-02] MEDS ORDERED: GLUCAGON FOR INJ 1 MG VIAL (J1610) SC (20:30)
[2017-04-02] MEDS ORDERED: ACETAMINOPHEN TAB 650MG DOSE (2X325MG) PO (20:30)
[2017-04-02] MEDS ORDERED: ONDANSETRON 4MG/2ML VIAL (J2405) IV (20:30)
[2017-04-02] MEDS ORDERED: GLUCOSE 4 GM CHEW TABLET PO (20:30)
[2017-04-02 20:33] LABS: BEDSIDE GLUCOSE 524 MG/DL (70-105)
[2017-04-02 21:38] LABS: BEDSIDE GLUCOSE 474 MG/DL (70-105)
[2017-04-02] MEDS: ARIPiprazole 10 MG TAB PO (22:06)
[2017-04-02] MEDS: DOCUSATE SODIUM 100 MG CAP PO (22:07)
[2017-04-02] MEDS: busPIRone 10 MG TAB PO (22:07)
[2017-04-02] MEDS: traZODone 100 MG TAB PO (22:08)
[2017-04-02] MEDS: PANTOPRAZOLE 40MG TAB (PROTONIX) PO (22:08)
[2017-04-02] MEDS: methylPREDNISolone INJ 125 MG/2 ML VIAL (J2930) IV (22:09)
[2017-04-02] MEDS: AZITHROMYCIN INJ 500 MG, VIAL MATE ADAPTER 1 EACH in D5W 250 ML IV (22:11)
[2017-04-02] MEDS: HumaLOG INSULIN (NovoLOG) PER UNIT SC (22:13)
[2017-04-02] MEDS: LEVEMIR (INSULIN DETEMIR) 1 UNITS/0.01ML SC (22:13)
[2017-04-02] MEDS: SYMBICORT 160/4.5MCG INHALER 6GM INH (22:46)
[2017-04-02] MEDS: IBUPROFEN 200 MG TAB PO (23:38)
[2017-04-03] MEDS: IPRATROPIUM 0.5MG/ALBUTEROL 2.5MG INH SOL UD 3ML (DUONEB)(J7620) NEB ×5 (00:34→20:00)
[2017-04-03] MEDS: LEVOTHYROXINE 25MCG TABLET (0.025MG) PO (06:40)
[2017-04-03 07:14] LABS: HEMATOCRIT 34.3 % (36.0-47.0); HEMOGLOBIN 11.1 g/dl (12.0-16.0); MEAN CORPUSCULAR HEMOGLOBIN 28.6 pg (27.0-33.0); MEAN CORPUSCULAR HGB CONC 32.4 g/dl (32.0-36.5); MEAN CORPUSCULAR VOLUME 88.4 fl (80.0-96.0); PLATELET COUNT, AUTOMATED 308 10^3/uL (150-450); RED BLOOD COUNT 3.88 10^6/uL (4.00-5.40); RED CELL DISTRIBUTION WIDTH 14.5 % (11.5-14.5); WHITE BLOOD COUNT 12.2 10^3/uL (4.0-10.0)
[2017-04-03] MEDS: SYMBICORT 160/4.5MCG INHALER 6GM INH ×2 (07:17→20:02)
[2017-04-03 07:26] LABS: ANION GAP 13 MEQ/L (8-16); BLOOD UREA NITROGEN 18 MG/DL (7-18); CALCIUM LEVEL 9.2 MG/DL (8.5-10.1); CARBON DIOXIDE LEVEL 21 MEQ/L (21-32); CHLORIDE LEVEL 99 MEQ/L (98-107); CREATININE FOR GFR 0.78 MG/DL (0.55-1.02); GLOMERULAR FILTRATION RATE > 60.0 (>58); POTASSIUM SERUM 4.1 MEQ/L (3.5-5.1); SODIUM LEVEL 133 MEQ/L (136-145)
[2017-04-03 07:29] LABS: GLUCOSE, FASTING 427 MG/DL (70-105)
[2017-04-03] MEDS: methylPREDNISolone INJ 125 MG/2 ML VIAL (J2930) IV ×2 (08:16→20:52)
[2017-04-03] MEDS: ENOXAPARIN 40 MG/0.4 ML SYRINGE (J1650) SC (08:16)
[2017-04-03] MEDS: LEVEMIR (INSULIN DETEMIR) 1 UNITS/0.01ML SC ×2 (08:17→20:53)
[2017-04-03] MEDS: hydroCHLOROthiazide 25 MG TAB PO (08:18)
[2017-04-03] MEDS: HumaLOG INSULIN (NovoLOG) PER UNIT SC ×4 (08:18→21:00)
[2017-04-03] MEDS: GABAPENTIN 300 MG CAP PO ×3 (08:18→17:25)
[2017-04-03] MEDS: FIORICET TAB PO ×4 (08:20→20:57)
[2017-04-03] MEDS: DOCUSATE SODIUM 100 MG CAP PO ×2 (08:20→20:51)
[2017-04-03] MEDS: MONTELUKAST 10 MG TAB PO (08:20)
[2017-04-03] MEDS: PANTOPRAZOLE 40MG TAB (PROTONIX) PO ×2 (08:20→20:51)
[2017-04-03] MEDS: DULoxetine 30 MG CAP (CYMBALTA) PO (08:20)
[2017-04-03] MEDS: LISINOPRIL 10 MG TAB PO (08:21)
[2017-04-03] MEDS: GEMFIBROZIL 600 MG TAB PO (08:21)
[2017-04-03] MEDS: busPIRone 10 MG TAB PO ×3 (08:22→20:51)
[2017-04-03] MEDS ORDERED: SLF 3 ML SYR IV (09:00)
[2017-04-03 12:33] LABS: BEDSIDE GLUCOSE 371 MG/DL (70-105)
[2017-04-03] MEDS ORDERED: ALBUTEROL SULFATE 2.5 MG/0.5 ML INH NEB SOLN NEB (13:30)
[2017-04-03] MEDS: SLF 3 ML SYR IV ×2 (16:04→20:52)
[2017-04-03] MEDS: IBUPROFEN 200 MG TAB PO ×2 (16:59→20:58)
[2017-04-03 17:18] LABS: BEDSIDE GLUCOSE 336 MG/DL (70-105)
[2017-04-03] MEDS: AZITHROMYCIN 250 MG TAB PO (20:51)
[2017-04-03] MEDS: ARIPiprazole 10 MG TAB PO (20:51)
[2017-04-03] MEDS: traZODone 100 MG TAB PO (20:51)
[2017-04-03 21:11] LABS: BEDSIDE GLUCOSE 390 MG/DL (70-105)
[2017-04-04] MEDS: LEVOTHYROXINE 25MCG TABLET (0.025MG) PO (05:21)
[2017-04-04] MEDS: FIORICET TAB PO (05:24)
[2017-04-04] MEDS: SLF 3 ML SYR IV (06:00)
[2017-04-04 07:19] LABS: HEMATOCRIT 34.1 % (36.0-47.0); HEMOGLOBIN 10.7 g/dl (12.0-16.0); MEAN CORPUSCULAR HEMOGLOBIN 28.3 pg (27.0-33.0); MEAN CORPUSCULAR HGB CONC 31.4 g/dl (32.0-36.5); MEAN CORPUSCULAR VOLUME 90.2 fl (80.0-96.0); PLATELET COUNT, AUTOMATED 319 10^3/uL (150-450); RED BLOOD COUNT 3.78 10^6/uL (4.00-5.40); RED CELL DISTRIBUTION WIDTH 14.6 % (11.5-14.5); WHITE BLOOD COUNT 17.3 10^3/uL (4.0-10.0)
[2017-04-04] MEDS: SYMBICORT 160/4.5MCG INHALER 6GM INH (07:34)
[2017-04-04] MEDS: IPRATROPIUM 0.5MG/ALBUTEROL 2.5MG INH SOL UD 3ML (DUONEB)(J7620) NEB ×2 (07:34→10:52)
[2017-04-04 07:41] LABS: ANION GAP 8 MEQ/L (8-16); BLOOD UREA NITROGEN 25 MG/DL (7-18); CALCIUM LEVEL 9.1 MG/DL (8.5-10.1); CARBON DIOXIDE LEVEL 26 MEQ/L (21-32); CHLORIDE LEVEL 100 MEQ/L (98-107); CREATININE FOR GFR 0.72 MG/DL (0.55-1.02); GLOMERULAR FILTRATION RATE > 60.0 (>58); GLUCOSE, FASTING 383 MG/DL (70-105); POTASSIUM SERUM 4.4 MEQ/L (3.5-5.1); SODIUM LEVEL 134 MEQ/L (136-145)
[2017-04-04] MEDS: PANTOPRAZOLE 40MG TAB (PROTONIX) PO (08:07)
[2017-04-04] MEDS: MONTELUKAST 10 MG TAB PO (08:07)
[2017-04-04] MEDS: DOCUSATE SODIUM 100 MG CAP PO (08:07)
[2017-04-04] MEDS: HumaLOG INSULIN (NovoLOG) PER UNIT SC ×2 (08:07→12:28)
[2017-04-04] MEDS: GABAPENTIN 300 MG CAP PO ×2 (08:07→12:29)
[2017-04-04] MEDS: DULoxetine 30 MG CAP (CYMBALTA) PO (08:07)
[2017-04-04] MEDS: GEMFIBROZIL 600 MG TAB PO (08:07)
[2017-04-04] MEDS: LEVEMIR (INSULIN DETEMIR) 1 UNITS/0.01ML SC (08:08)
[2017-04-04] MEDS: ENOXAPARIN 40 MG/0.4 ML SYRINGE (J1650) SC (08:08)
[2017-04-04] MEDS: methylPREDNISolone INJ 125 MG/2 ML VIAL (J2930) IV (08:08)
[2017-04-04] MEDS: LISINOPRIL 10 MG TAB PO (08:09)
[2017-04-04] MEDS: busPIRone 10 MG TAB PO (08:09)
[2017-04-04] MEDS: IBUPROFEN 800 MG TAB PO (08:23)
[2017-04-04 11:28] LABS: BEDSIDE GLUCOSE 379 MG/DL (70-105)
== END 2017-04-04 12:45 | disposition home or self-care (01) ==
LOC: M PED 23:30 → M ED 18:11 → M ED INP 20:26
DX: J96.01 Acute respiratory failure with hypoxia (principal); J44.9 Chronic obstructive pulmonary disease, unspecified; J45.909 Unspecified asthma, uncomplicated; E88.01 Alpha-1-antitrypsin deficiency; E87.2 Acidosis; R00.0 Tachycardia, unspecified; R53.1 Weakness; M51.9 Unspecified thoracic, thoracolumbar and lumbosacral intervertebral disc disorder; G47.00 Insomnia, unspecified; G43.909 Migraine, unspecified, not intractable, without status migrainosus; E66.9 Obesity, unspecified; E03.9 Hypothyroidism, unspecified; E11.9 Type 2 diabetes mellitus without complications; F43.10 Post-traumatic stress disorder, unspecified; E78.5 Hyperlipidemia, unspecified; F32.9 Major depressive disorder, single episode, unspecified; G89.29 Other chronic pain; I10 Essential (primary) hypertension; K21.9 Gastro-esophageal reflux disease without esophagitis; Z88.8 Allergy status to other drugs, medicaments and biological substances; Z79.899 Other long term (current) drug therapy; Z79.4 Long term (current) use of insulin; Z79.52 Long term (current) use of systemic steroids; Z79.2 Long term (current) use of antibiotics; Z87.891 Personal history of nicotine dependence
CPT/HCPCS: 96366

== ENCOUNTER 2017-04-25 17:42 | Emergency (ER) | payer OTHER ==
[2017-04-25] MEDS: KETOROLAC 60 MG/2 ML VIAL (J1885) IM (19:15)
[2017-04-25] MEDS: diazePAM 5 MG TAB PO (19:15)
== END 2017-04-25 20:17 | disposition home or self-care (01) ==
LOC: M ED 17:42
DX: M54.12 Radiculopathy, cervical region (principal); I11.0 Hypertensive heart disease with heart failure; E10.40 Type 1 diabetes mellitus with diabetic neuropathy, unspecified; J44.9 Chronic obstructive pulmonary disease, unspecified; I50.9 Heart failure, unspecified; F41.9 Anxiety disorder, unspecified; F33.9 Major depressive disorder, recurrent, unspecified; F43.10 Post-traumatic stress disorder, unspecified; M50.20 Other cervical disc displacement, unspecified cervical region; M79.7 Fibromyalgia; E88.01 Alpha-1-antitrypsin deficiency; Z79.899 Other long term (current) drug therapy; Z79.4 Long term (current) use of insulin; Z79.890 Hormone replacement therapy; Z88.8 Allergy status to other drugs, medicaments and biological substances; Z87.891 Personal history of nicotine dependence
CPT/HCPCS: J1885

== ENCOUNTER 2017-04-28 15:47 | Emergency (ER) | payer OTHER | END 2017-04-28 18:11 | disposition home or self-care (01) | LOC: M ED 15:47 | DX: S90.32XA Contusion of left foot, initial encounter (principal); W00.0XXA Fall on same level due to ice and snow, initial encounter; Y92.512 Supermarket, store or market as the place of occurrence of the external cause; M54.5 Low back pain; I11.0 Hypertensive heart disease with heart failure; I50.9 Heart failure, unspecified; E11.9 Type 2 diabetes mellitus without complications; J44.9 Chronic obstructive pulmonary disease, unspecified; E78.00 Pure hypercholesterolemia, unspecified; G43.909 Migraine, unspecified, not intractable, without status migrainosus; E88.01 Alpha-1-antitrypsin deficiency; K21.9 Gastro-esophageal reflux disease without esophagitis; M79.7 Fibromyalgia; F43.10 Post-traumatic stress disorder, unspecified; F33.9 Major depressive disorder, recurrent, unspecified; F41.9 Anxiety disorder, unspecified; Z79.899 Other long term (current) drug therapy; Z79.4 Long term (current) use of insulin; Z79.890 Hormone replacement therapy; Z88.8 Allergy status to other drugs, medicaments and biological substances | CPT/HCPCS: 73610 ==

== ENCOUNTER 2017-04-30 19:24 | Inpatient (IN) | payer OTHER ==
[2017-04-30] MEDS: MAG SULF 1GM/100ML (MAG RUN) 1 GM in APPROPRIATE DILUENT 1 EA IV ×2 (19:45→22:10)
[2017-04-30] MEDS: ALBUTEROL SULFATE 2.5 MG/0.5 ML INH NEB SOLN INH ×3 (19:45→20:15)
[2017-04-30] MEDS: dexameTHASONE 20 MG/5 ML VIAL (J1100) IV (19:45)
[2017-04-30 20:45] LABS: ABG BASE EXCESS -1.2 (-2.0-2.0); ABG HCO3 22.3 MEQ/L (22.0-26.0); ABG O2 SATURATION 97.5 % (95.0-99.0); ABG PARTIAL PRESSURE CO2 33.1 mmHg (35.0-45.0); ABG PARTIAL PRESSURE O2 95.5 mmHg (75.0-100.0); ABG STANDARD HCO3 23.5 MEQ/L (22.0-26.0); ABG TOTAL CO2 23.3 MEQ/L (22.0-29.0); ABG pH (ARTERIAL) 7.446 UNITS (7.350-7.450)
[2017-04-30 20:56] LABS: HEMATOCRIT 35.1 % (36.0-47.0); HEMOGLOBIN 11.2 g/dl (12.0-16.0); MEAN CORPUSCULAR HEMOGLOBIN 28.6 pg (27.0-33.0); MEAN CORPUSCULAR HGB CONC 31.9 g/dl (32.0-36.5); MEAN CORPUSCULAR VOLUME 89.5 fl (80.0-96.0); PLATELET COUNT, AUTOMATED 346 10^3/uL (150-450); RED BLOOD COUNT 3.92 10^6/uL (4.00-5.40); RED CELL DISTRIBUTION WIDTH 15.2 % (11.5-14.5)
[2017-04-30] MEDS: LEVEMIR (INSULIN DETEMIR) 1 UNITS/0.01ML SC (21:00)
[2017-04-30 21:05] LABS: ADD MANUAL DIFFER YES; DIFF SLIDE NUMBER 305; POSITIVE DIFF POS FLAG; POSITIVE MORPH POS FLAG; WHITE BLOOD COUNT 14.8 10^3/uL (4.0-10.0)
[2017-04-30 21:13] LABS: ANION GAP 10 MEQ/L (8-16); BLOOD UREA NITROGEN 12 MG/DL (7-18); CALCIUM LEVEL 8.9 MG/DL (8.5-10.1); CARBON DIOXIDE LEVEL 26 MEQ/L (21-32); CHLORIDE LEVEL 99 MEQ/L (98-107); CREATININE FOR GFR 0.83 MG/DL (0.55-1.30); GLOMERULAR FILTRATION RATE > 60.0 (>58); POTASSIUM SERUM 4.2 MEQ/L (3.5-5.1); SODIUM LEVEL 135 MEQ/L (136-145)
[2017-04-30 21:26] LABS: INFLUENZA A AMPLIFICATION NEGATIVE (NEGATIVE); INFLUENZA B AMPLIFICATION NEGATIVE (NEGATIVE); RSV AMPLIFICATION NEGATIVE (NEGATIVE)
[2017-04-30 21:28] LABS: ATYPICAL LYMPH 5 % (0-5); BASOPHILS 1 % (0-4); EOSINOPHILS 2 % (0-5); GLUCOSE, FASTING 498 MG/DL (70-100); LYMPHOCYTES 58 % (16-52); MONOCYTES 2 % (0-8); NEUTROPHILS 32 % (35-75)
[2017-04-30 21:29] LABS: PLATELET ESTIMATE NORMAL (NORMAL)
[2017-04-30] MEDS: HumuLIN R (REGULAR) INSULIN (NovoLIN R) **100U/ML** PER UNIT IV (21:47)
[2017-04-30 22:43] LABS: BEDSIDE GLUCOSE 281 MG/DL (70-105)
[2017-04-30] MEDS ORDERED: DEXTROSE 50% 50 ML SYRINGE IV (22:45)
[2017-04-30] MEDS ORDERED: GLUCAGON FOR INJ 1 MG VIAL (J1610) SC (22:45)
[2017-04-30] MEDS ORDERED: GLUCOSE 4 GM CHEW TABLET PO (22:45)
[2017-04-30 22:56] LABS: CPK CREATINE PHOSPHOKINASE 42 U/L (26-192); TROPONIN I < 0.02 NG/ML (< 0.10)
[2017-04-30 22:57] LABS: MB/CK RELATIVE INDEX 2.38 (< OR =4)
[2017-04-30 23:37] LABS: GLUCOSE, FASTING 321 MG/DL (70-100)
[2017-05-01] MEDS: traZODone 100 MG TAB PO ×2 (00:32→20:54)
[2017-05-01] MEDS: busPIRone 10 MG TAB PO ×4 (00:32→20:54)
[2017-05-01] MEDS: ARIPiprazole 10 MG TAB PO ×2 (00:33→20:54)
[2017-05-01] MEDS: ALBUTEROL SULFATE 2.5 MG/0.5 ML INH NEB SOLN INH ×4 (00:33→12:10)
[2017-05-01] MEDS: GABAPENTIN 300 MG CAP PO ×4 (00:33→17:09)
[2017-05-01] MEDS: PANTOPRAZOLE 40MG TAB (PROTONIX) PO ×3 (00:33→20:54)
[2017-05-01] MEDS: IBUPROFEN 600 MG TAB PO ×2 (05:43→19:00)
[2017-05-01] MEDS: methylPREDNISolone INJ 125 MG/2 ML VIAL (J2930) IV (05:43)
[2017-05-01] MEDS: LEVOTHYROXINE 25MCG TABLET (0.025MG) PO (05:44)
[2017-05-01 05:57] LABS: HEMATOCRIT 33.3 % (36.0-47.0); HEMOGLOBIN 10.7 g/dl (12.0-16.0); MEAN CORPUSCULAR HEMOGLOBIN 28.6 pg (27.0-33.0); MEAN CORPUSCULAR HGB CONC 32.1 g/dl (32.0-36.5); PLATELET COUNT, AUTOMATED 322 10^3/uL (150-450); RED BLOOD COUNT 3.74 10^6/uL (4.00-5.40); RED CELL DISTRIBUTION WIDTH 15.4 % (11.5-14.5); WHITE BLOOD COUNT 12.6 10^3/uL (4.0-10.0)
[2017-05-01 05:58] LABS: BEDSIDE GLUCOSE 445 MG/DL (70-105)
[2017-05-01] MEDS: HumaLOG INSULIN (NovoLOG) PER UNIT SC ×3 (05:59→17:10)
[2017-05-01 06:17] LABS: ANION GAP 10 MEQ/L (8-16); BLOOD UREA NITROGEN 14 MG/DL (7-18); CALCIUM LEVEL 8.7 MG/DL (8.5-10.1); CARBON DIOXIDE LEVEL 26 MEQ/L (21-32); CHLORIDE LEVEL 99 MEQ/L (98-107); CREATININE FOR GFR 0.77 MG/DL (0.55-1.30); GLOMERULAR FILTRATION RATE > 60.0 (>58); MAGNESIUM LEVEL 2.3 MG/DL (1.8-2.4); POTASSIUM SERUM 4.3 MEQ/L (3.5-5.1); SODIUM LEVEL 135 MEQ/L (136-145)
[2017-05-01 06:22] LABS: GLUCOSE, FASTING 456 MG/DL (70-100)
[2017-05-01] MEDS: GEMFIBROZIL 600 MG TAB PO (08:53)
[2017-05-01] MEDS: MONTELUKAST 10 MG TAB PO (08:53)
[2017-05-01] MEDS: LEVEMIR (INSULIN DETEMIR) 1 UNITS/0.01ML SC ×2 (08:53→20:54)
[2017-05-01] MEDS: DULoxetine 30 MG CAP (CYMBALTA) PO (08:53)
[2017-05-01] MEDS: LISINOPRIL 10 MG TAB PO (08:54)
[2017-05-01] MEDS ORDERED: hydroCHLOROthiazide 25 MG TAB PO (09:00)
[2017-05-01 12:15] LABS: BEDSIDE GLUCOSE 379 MG/DL (70-105)
[2017-05-01] MEDS: SYMBICORT 80/4.5MCG INHALER 6GM INH ×2 (12:20→21:46)
[2017-05-01] MEDS: methylPREDNISolone INJ 40 MG/1 ML VIAL (J2920) IV ×2 (13:23→20:54)
[2017-05-01] MEDS: IPRATROPIUM 0.5MG/ALBUTEROL 2.5MG INH SOL UD 3ML (DUONEB)(J7620) NEB ×2 (14:00→21:10)
[2017-05-01 16:41] LABS: BEDSIDE GLUCOSE 411 MG/DL (70-105)
[2017-05-01] MEDS: SUMAtriptan SUCCINATE 25 MG TAB PO (20:55)
[2017-05-01] MEDS: diazePAM 5 MG TAB PO (21:55)
[2017-05-02] MEDS: IPRATROPIUM 0.5MG/ALBUTEROL 2.5MG INH SOL UD 3ML (DUONEB)(J7620) NEB ×2 (02:00→07:49)
[2017-05-02 02:49] LABS: BEDSIDE GLUCOSE 372 MG/DL (70-105)
[2017-05-02] MEDS: LEVOTHYROXINE 25MCG TABLET (0.025MG) PO (05:17)
[2017-05-02] MEDS: methylPREDNISolone INJ 40 MG/1 ML VIAL (J2920) IV (05:17)
[2017-05-02 05:58] LABS: HEMATOCRIT 32.8 % (36.0-47.0); HEMOGLOBIN 10.2 g/dl (12.0-16.0); MEAN CORPUSCULAR HEMOGLOBIN 28.3 pg (27.0-33.0); MEAN CORPUSCULAR HGB CONC 31.1 g/dl (32.0-36.5); MEAN CORPUSCULAR VOLUME 90.9 fl (80.0-96.0); PLATELET COUNT, AUTOMATED 330 10^3/uL (150-450); RED BLOOD COUNT 3.61 10^6/uL (4.00-5.40); RED CELL DISTRIBUTION WIDTH 15.5 % (11.5-14.5); WHITE BLOOD COUNT 16.2 10^3/uL (4.0-10.0)
[2017-05-02 06:28] LABS: ANION GAP 10 MEQ/L (8-16); BLOOD UREA NITROGEN 23 MG/DL (7-18); CARBON DIOXIDE LEVEL 28 MEQ/L (21-32); CHLORIDE LEVEL 102 MEQ/L (98-107); CREATININE FOR GFR 0.76 MG/DL (0.55-1.30); GLOMERULAR FILTRATION RATE > 60.0 (>58); GLUCOSE, FASTING 361 MG/DL (70-100); MAGNESIUM LEVEL 2.4 MG/DL (1.8-2.4); POTASSIUM SERUM 4.2 MEQ/L (3.5-5.1); SODIUM LEVEL 140 MEQ/L (136-145)
[2017-05-02] MEDS: SYMBICORT 80/4.5MCG INHALER 6GM INH (07:49)
[2017-05-02] MEDS: GABAPENTIN 300 MG CAP PO (08:03)
[2017-05-02] MEDS: DULoxetine 30 MG CAP (CYMBALTA) PO (08:03)
[2017-05-02] MEDS: busPIRone 10 MG TAB PO (08:03)
[2017-05-02] MEDS: LEVEMIR (INSULIN DETEMIR) 1 UNITS/0.01ML SC (08:03)
[2017-05-02] MEDS: MONTELUKAST 10 MG TAB PO (08:04)
[2017-05-02] MEDS: HumaLOG INSULIN (NovoLOG) PER UNIT SC (08:04)
[2017-05-02] MEDS: PANTOPRAZOLE 40MG TAB (PROTONIX) PO (08:04)
[2017-05-02] MEDS: LISINOPRIL 10 MG TAB PO (08:04)
[2017-05-02] MEDS: GEMFIBROZIL 600 MG TAB PO (08:04)
[2017-05-02] MEDS: predniSONE 20 MG TAB PO ×2 (09:00→09:21)
[2017-05-02] MEDS ORDERED: predniSONE 5MG/5ML SOLN ORAL SYRINGE PO (10:00)
== END 2017-05-02 11:40 | disposition home or self-care (01) | DRG 141 ==
LOC: M ICU 05-01 05:05 → M ED 19:24 → M ED INP 22:59 → M MSPAV 05-01 14:10
DX: J45.901 Unspecified asthma with (acute) exacerbation (principal); E11.40 Type 2 diabetes mellitus with diabetic neuropathy, unspecified; J44.9 Chronic obstructive pulmonary disease, unspecified; F32.9 Major depressive disorder, single episode, unspecified; I10 Essential (primary) hypertension; F41.9 Anxiety disorder, unspecified; E03.9 Hypothyroidism, unspecified; G47.00 Insomnia, unspecified; Z79.4 Long term (current) use of insulin; Z79.899 Other long term (current) drug therapy; Z88.8 Allergy status to other drugs, medicaments and biological substances

== ENCOUNTER 2017-05-05 19:47 | Inpatient (IN) | payer OTHER ==
[2017-05-05] MEDS: ALBUTEROL SULFATE 2.5 MG/0.5 ML INH NEB SOLN NEB (20:31)
[2017-05-05] MEDS: dexameTHASONE 20 MG/5 ML VIAL (J1100) IV (20:34)
[2017-05-05] MEDS: MAG SULF 1GM/100ML (MAG RUN) 1 GM in APPROPRIATE DILUENT 1 EA IV ×3 (20:34→23:42)
[2017-05-05 20:47] LABS: CARBOXYHEMOGLOBIN 2.1 % (0.0-1.5)
[2017-05-05 20:53] LABS: HEMATOCRIT 32.6 % (36.0-47.0); HEMOGLOBIN 10.2 g/dl (12.0-16.0); MEAN CORPUSCULAR HEMOGLOBIN 27.6 pg (27.0-33.0); MEAN CORPUSCULAR HGB CONC 31.3 g/dl (32.0-36.5); MEAN CORPUSCULAR VOLUME 88.1 fl (80.0-96.0); PLATELET COUNT, AUTOMATED 323 10^3/uL (150-450); RED CELL DISTRIBUTION WIDTH 14.8 % (11.5-14.5)
[2017-05-05 20:58] LABS: ADD MANUAL DIFFER YES; DIFF SLIDE NUMBER 303; POSITIVE DIFF POS FLAG; POSITIVE MORPH POS FLAG; WHITE BLOOD COUNT 15.5 10^3/uL (4.0-10.0)
[2017-05-05 21:13] LABS: ANION GAP 9 MEQ/L (8-16); BLOOD UREA NITROGEN 16 MG/DL (7-18); CALCIUM LEVEL 8.8 MG/DL (8.5-10.1); CARBON DIOXIDE LEVEL 29 MEQ/L (21-32); CHLORIDE LEVEL 99 MEQ/L (98-107); CREATININE FOR GFR 0.78 MG/DL (0.55-1.30); GLOMERULAR FILTRATION RATE > 60.0 (>58); GLUCOSE, FASTING 305 MG/DL (70-100); POTASSIUM SERUM 3.3 MEQ/L (3.5-5.1); SODIUM LEVEL 137 MEQ/L (136-145)
[2017-05-05 21:24] LABS: EOSINOPHILS 2 % (0-5); LYMPHOCYTES 51 % (16-52); MONOCYTES 7 % (0-8); NEUTROPHILS 40 % (35-75)
[2017-05-05 21:25] LABS: PLATELET ESTIMATE NORMAL (NORMAL)
[2017-05-05] MEDS ORDERED: GLUCOSE 4 GM CHEW TABLET PO (22:00)
[2017-05-05] MEDS ORDERED: SUMAtriptan SUCCINATE 25 MG TAB PO (22:00)
[2017-05-05] MEDS ORDERED: IPRATROPIUM 0.5MG/ALBUTEROL 2.5MG INH SOL UD 3ML (DUONEB)(J7620) NEB (22:00)
[2017-05-05] MEDS ORDERED: DEXTROSE 50% 50 ML SYRINGE IV (22:00)
[2017-05-05] MEDS ORDERED: ACETAMINOPHEN TAB 650MG DOSE (2X325MG) PO (22:00)
[2017-05-05] MEDS ORDERED: GLUCAGON FOR INJ 1 MG VIAL (J1610) SC (22:00)
[2017-05-06] MEDS: methylPREDNISolone INJ 125 MG/2 ML VIAL (J2930) IV ×3 (01:23→16:13)
[2017-05-06] MEDS: LEVEMIR (INSULIN DETEMIR) 1 UNITS/0.01ML SC ×3 (01:23→21:20)
[2017-05-06] MEDS: POTASSIUM CHLORIDE 10 MEQ SR TABLET PO (01:23)
[2017-05-06] MEDS: busPIRone 10 MG TAB PO ×4 (01:24→21:22)
[2017-05-06] MEDS: traZODone 100 MG TAB PO ×2 (01:24→21:22)
[2017-05-06] MEDS: ARIPiprazole 10 MG TAB PO ×2 (01:24→21:25)
[2017-05-06] MEDS: MONTELUKAST 10 MG TAB PO ×2 (01:25→21:22)
[2017-05-06] MEDS: PANTOPRAZOLE 40MG TAB (PROTONIX) PO ×3 (01:25→21:22)
[2017-05-06] MEDS: IPRATROPIUM 0.5MG/ALBUTEROL 2.5MG INH SOL UD 3ML (DUONEB)(J7620) NEB ×4 (01:32→20:00)
[2017-05-06 02:34] LABS: BEDSIDE GLUCOSE CONFIRMATION 512 MG/DL (LESS THAN 200)
[2017-05-06] MEDS: HumaLOG INSULIN (NovoLOG) PER UNIT SC ×5 (04:02→21:21)
[2017-05-06] MEDS: SODIUM CHLORIDE 0.9% INJ 10 ML SYR IV ×3 (04:02→16:44)
[2017-05-06] MEDS: LEVOTHYROXINE 25MCG TABLET (0.025MG) PO (06:04)
[2017-05-06] MEDS: SYMBICORT 160/4.5MCG INHALER 6GM INH ×2 (07:52→20:59)
[2017-05-06 07:58] LABS: BEDSIDE GLUCOSE CONFIRMATION 459 MG/DL (LESS THAN 200)
[2017-05-06 09:02] LABS: BEDSIDE GLUCOSE 531 MG/DL (70-105)
[2017-05-06 09:02] LABS: BEDSIDE GLUCOSE 537 MG/DL (70-105)
[2017-05-06] MEDS: GABAPENTIN 300 MG CAP PO ×3 (09:24→18:15)
[2017-05-06] MEDS: LISINOPRIL 10 MG TAB PO (09:25)
[2017-05-06] MEDS: hydroCHLOROthiazide 25 MG TAB PO (09:26)
[2017-05-06] MEDS: ENOXAPARIN 40 MG/0.4 ML SYRINGE (J1650) SC (09:28)
[2017-05-06] MEDS: DULoxetine 30 MG CAP (CYMBALTA) PO (09:37)
[2017-05-06 12:19] LABS: BEDSIDE GLUCOSE 365 MG/DL (70-105)
[2017-05-06] MEDS: diazePAM 5 MG TAB PO (14:14)
[2017-05-06 17:01] LABS: BEDSIDE GLUCOSE 394 MG/DL (70-105)
[2017-05-06 20:41] LABS: BEDSIDE GLUCOSE 455 MG/DL (70-105)
[2017-05-07] MEDS: methylPREDNISolone INJ 125 MG/2 ML VIAL (J2930) IV (01:00)
[2017-05-07] MEDS: SODIUM CHLORIDE 0.9% INJ 10 ML SYR IV ×2 (01:00→12:43)
[2017-05-07] MEDS: IPRATROPIUM 0.5MG/ALBUTEROL 2.5MG INH SOL UD 3ML (DUONEB)(J7620) NEB ×4 (02:00→19:56)
[2017-05-07] MEDS: LEVOTHYROXINE 25MCG TABLET (0.025MG) PO (06:44)
[2017-05-07 07:47] LABS: BASO % 0.1 % (0.0-1.0); HEMOGLOBIN 10.2 g/dl (12.0-16.0); IMMATURE GRANULOCYTE % 1.2 % (0-3.0); LYMPH # 2.4 10^3/uL (1.5-4.5); LYMPH % 12.8 % (24.0-44.0); MEAN CORPUSCULAR HEMOGLOBIN 28.2 pg (27.0-33.0); MEAN CORPUSCULAR HGB CONC 31.9 g/dl (32.0-36.5); MEAN CORPUSCULAR VOLUME 88.4 fl (80.0-96.0); MONO # 0.5 10^3/uL (0.0-0.8); MONO % 2.6 % (0.0-5.0); NEUTROPHILS # 15.8 10^3/uL (1.8-7.7); NEUTROPHILS % 83.3 % (36.0-66.0); PLATELET COUNT, AUTOMATED 347 10^3/uL (150-450); RED BLOOD COUNT 3.62 10^6/uL (4.00-5.40); RED CELL DISTRIBUTION WIDTH 15.5 % (11.5-14.5); WHITE BLOOD COUNT 18.9 10^3/uL (4.0-10.0)
[2017-05-07 07:48] LABS: BEDSIDE GLUCOSE 372 MG/DL (70-105)
[2017-05-07] MEDS: SYMBICORT 160/4.5MCG INHALER 6GM INH ×2 (07:53→19:56)
[2017-05-07 08:05] LABS: ANION GAP 6 MEQ/L (8-16); BLOOD UREA NITROGEN 24 MG/DL (7-18); CALCIUM LEVEL 8.7 MG/DL (8.5-10.1); CARBON DIOXIDE LEVEL 27 MEQ/L (21-32); CHLORIDE LEVEL 101 MEQ/L (98-107); CREATININE FOR GFR 0.73 MG/DL (0.55-1.30); GLOMERULAR FILTRATION RATE > 60.0 (>58); GLUCOSE, FASTING 389 MG/DL (70-100); POTASSIUM SERUM 4.2 MEQ/L (3.5-5.1); SODIUM LEVEL 134 MEQ/L (136-145)
[2017-05-07] MEDS: HumaLOG INSULIN (NovoLOG) PER UNIT SC ×4 (08:52→21:41)
[2017-05-07] MEDS: busPIRone 10 MG TAB PO ×3 (09:06→21:42)
[2017-05-07] MEDS: DULoxetine 30 MG CAP (CYMBALTA) PO (09:06)
[2017-05-07] MEDS: GABAPENTIN 300 MG CAP PO ×3 (09:07→17:30)
[2017-05-07] MEDS: PANTOPRAZOLE 40MG TAB (PROTONIX) PO ×2 (09:07→21:42)
[2017-05-07] MEDS: ENOXAPARIN 40 MG/0.4 ML SYRINGE (J1650) SC (09:08)
[2017-05-07] MEDS: LEVEMIR (INSULIN DETEMIR) 1 UNITS/0.01ML SC ×2 (09:09→21:40)
[2017-05-07] MEDS: LISINOPRIL 10 MG TAB PO (09:10)
[2017-05-07] MEDS: hydroCHLOROthiazide 25 MG TAB PO (09:10)
[2017-05-07] MEDS: methylPREDNISolone INJ 40 MG/1 ML VIAL (J2920) IV (12:10)
[2017-05-07 12:26] LABS: BEDSIDE GLUCOSE 260 MG/DL (70-105)
[2017-05-07 17:02] LABS: BEDSIDE GLUCOSE 359 MG/DL (70-105)
[2017-05-07 21:08] LABS: BEDSIDE GLUCOSE 309 MG/DL (70-105)
[2017-05-07] MEDS: diazePAM 5 MG TAB PO (21:41)
[2017-05-07] MEDS: ARIPiprazole 10 MG TAB PO (21:41)
[2017-05-07] MEDS: traZODone 100 MG TAB PO (21:41)
[2017-05-07] MEDS: MONTELUKAST 10 MG TAB PO (21:41)
[2017-05-08] MEDS: methylPREDNISolone INJ 40 MG/1 ML VIAL (J2920) IV (01:37)
[2017-05-08] MEDS: IPRATROPIUM 0.5MG/ALBUTEROL 2.5MG INH SOL UD 3ML (DUONEB)(J7620) NEB ×2 (02:00→07:37)
[2017-05-08] MEDS: LEVOTHYROXINE 25MCG TABLET (0.025MG) PO (06:33)
[2017-05-08] MEDS: SYMBICORT 160/4.5MCG INHALER 6GM INH (07:37)
[2017-05-08 08:22] LABS: BEDSIDE GLUCOSE 360 MG/DL (70-105)
[2017-05-08] MEDS: ENOXAPARIN 40 MG/0.4 ML SYRINGE (J1650) SC (09:00)
[2017-05-08] MEDS: LISINOPRIL 10 MG TAB PO (09:08)
[2017-05-08] MEDS: GABAPENTIN 300 MG CAP PO (09:08)
[2017-05-08] MEDS: DULoxetine 30 MG CAP (CYMBALTA) PO (09:09)
[2017-05-08] MEDS: LEVEMIR (INSULIN DETEMIR) 1 UNITS/0.01ML SC (09:09)
[2017-05-08] MEDS: hydroCHLOROthiazide 25 MG TAB PO (09:09)
[2017-05-08] MEDS: PANTOPRAZOLE 40MG TAB (PROTONIX) PO (09:09)
[2017-05-08] MEDS: HumaLOG INSULIN (NovoLOG) PER UNIT SC (09:10)
[2017-05-08] MEDS: SODIUM CHLORIDE 0.9% INJ 10 ML SYR IV (09:11)
[2017-05-08] MEDS: busPIRone 10 MG TAB PO (09:27)
[2017-05-08] MEDS: predniSONE 5MG/5ML SOLN ORAL SYRINGE PO (10:05)
== END 2017-05-08 10:20 | disposition home or self-care (01) | DRG 141 ==
LOC: M PED 23:59 → M ED 19:47 → M ED INP 21:56
PROVIDERS: Internal Medicine
DX: J45.901 Unspecified asthma with (acute) exacerbation (principal); E88.01 Alpha-1-antitrypsin deficiency; J44.9 Chronic obstructive pulmonary disease, unspecified; E11.9 Type 2 diabetes mellitus without complications; E87.6 Hypokalemia; G47.00 Insomnia, unspecified; I10 Essential (primary) hypertension; F43.10 Post-traumatic stress disorder, unspecified; E78.5 Hyperlipidemia, unspecified; E03.9 Hypothyroidism, unspecified; K21.9 Gastro-esophageal reflux disease without esophagitis; Z79.4 Long term (current) use of insulin; Z79.899 Other long term (current) drug therapy; Z88.8 Allergy status to other drugs, medicaments and biological substances; Z90.49 Acquired absence of other specified parts of digestive tract; Z87.891 Personal history of nicotine dependence

== ENCOUNTER 2017-06-12 12:51 | Emergency (ER) | payer OTHER ==
[2017-06-12 13:38] LABS: KETONE, URINE AUTO RFX NEGATIVE (NEGATIVE); LEUKOCYTE ESTERASE UR AUTO RFX NEGATIVE (NEGATIVE); NITRITE, URINE AUTO RFX NEGATIVE (NEGATIVE); RBC, URINE AUTO RFX 0 /HPF (0-3); SPECIFIC GRAVITY UR AUTO RFX 1.003 (1.002-1.035); SQUAM EPITHELIAL CELL UR AURFX 2 /HPF (0-6); WBC, URINE AUTO RFX 0 /HPF (0-3)
[2017-06-12] MEDS: NS 1,000 ML IV (16:30)
[2017-06-12] MEDS ORDERED: ONDANSETRON 4MG/2ML VIAL (J2405) IV (16:30)
[2017-06-12 17:23] LABS: CONTROL LINE UCG INT CTR LINE PRESENT; URINE PREG TEST NEGATIVE (NEGATIVE)
[2017-06-12 17:42] LABS: BASO # 0.1 10^3/uL (0.0-0.2); BASO % 0.7 % (0.0-1.0); EOS # 0.2 10^3/uL (0.0-0.50); EOS % 1.2 % (0.0-3.0); HEMATOCRIT 35.3 % (36.0-47.0); HEMOGLOBIN 10.7 g/dl (12.0-15.5); IMMATURE GRANULOCYTE % 0.7 % (0-3.0); LYMPH % 15.3 % (24.0-44.0); MEAN CORPUSCULAR HEMOGLOBIN 27.8 pg (27.0-33.0); MEAN CORPUSCULAR HGB CONC 30.3 g/dl (32.0-36.5); MEAN CORPUSCULAR VOLUME 91.7 fl (80.0-96.0); MONO % 7.9 % (0.0-5.0); NEUTROPHILS # 9.8 10^3/uL (1.8-7.7); NEUTROPHILS % 74.2 % (36.0-66.0); PLATELET COUNT, AUTOMATED 340 10^3/uL (150-450); RED BLOOD COUNT 3.85 10^6/uL (4.00-5.40); WHITE BLOOD COUNT 13.2 10^3/uL (4.0-10.0)
[2017-06-12] MEDS: KETOROLAC 30 MG/ML VIAL (J1885) IV (17:44)
[2017-06-12] MEDS ORDERED: ACETAMINOPHEN TAB 650MG DOSE (2X325MG) PO (18:30)
[2017-06-12] MEDS ORDERED: ISOVUE-370 76% 100ML VIAL (Q9967) As Ordered (18:40)
[2017-06-12] MEDS: MORPHINE 4 MG/ML 1ML VIAL (J2270) IV (18:41)
[2017-06-12 19:01] LABS: ALBUMIN 3.5 GM/DL (3.2-5.2); ALBUMIN/GLOBULIN RATIO 0.97 (1.00-1.93); ALKALINE PHOSPHATASE 226 U/L (45-117); ALT/SGPT 69 U/L (12-78); ANION GAP 6 MEQ/L (8-16); AST/SGOT 33 U/L (7-37); BILIRUBIN,TOTAL 0.2 MG/DL (0.2-1.0); BLOOD UREA NITROGEN 13 MG/DL (7-18); CALCIUM LEVEL 8.8 MG/DL (8.5-10.1); CARBON DIOXIDE LEVEL 29 MEQ/L (21-32); CHLORIDE LEVEL 107 MEQ/L (98-107); CREATININE FOR GFR 0.61 MG/DL (0.55-1.30); GLOMERULAR FILTRATION RATE > 60.0 (>58); GLUCOSE, FASTING 61 MG/DL (70-100); POTASSIUM SERUM 3.9 MEQ/L (3.5-5.1); SODIUM LEVEL 142 MEQ/L (136-145); TOTAL PROTEIN 7.1 GM/DL (6.4-8.2)
== END 2017-06-12 20:39 | disposition home or self-care (01) ==
LOC: M ED 12:51
DX: R10.32 Left lower quadrant pain (principal); I10 Essential (primary) hypertension; E78.5 Hyperlipidemia, unspecified; J44.9 Chronic obstructive pulmonary disease, unspecified; Z87.42 Personal history of other diseases of the female genital tract; G62.9 Polyneuropathy, unspecified; Z79.899 Other long term (current) drug therapy; Z79.51 Long term (current) use of inhaled steroids; Z79.4 Long term (current) use of insulin; Z88.8 Allergy status to other drugs, medicaments and biological substances
CPT/HCPCS: J2270

== ENCOUNTER 2017-06-26 22:41 | Inpatient (IN) | payer OTHER ==
[2017-06-26] MEDS: BUDESONIDE 0.25 MG/2 ML INHALATION SUSPENSION INH (23:38)
[2017-06-26] MEDS: IPRATROPIUM 0.5MG/ALBUTEROL 2.5MG INH SOL UD 3ML (DUONEB)(J7620) NEB (23:38)
[2017-06-26 23:50] LABS: BASO # 0.1 10^3/uL (0.0-0.2); BASO % 0.6 % (0.0-1.0); EOS # 0.4 10^3/uL (0.0-0.50); HEMATOCRIT 30.5 % (36.0-47.0); HEMOGLOBIN 9.4 g/dl (12.0-15.5); IMMATURE GRANULOCYTE % 0.8 % (0-3.0); LYMPH # 3.3 10^3/uL (1.5-4.5); LYMPH % 32.9 % (24.0-44.0); MEAN CORPUSCULAR HEMOGLOBIN 27.7 pg (27.0-33.0); MEAN CORPUSCULAR HGB CONC 30.8 g/dl (32.0-36.5); MONO # 0.9 10^3/uL (0.0-0.8); MONO % 9.4 % (0.0-5.0); NEUTROPHILS # 5.3 10^3/uL (1.8-7.7); NEUTROPHILS % 52.3 % (36.0-66.0); PLATELET COUNT, AUTOMATED 300 10^3/uL (150-450); RED BLOOD COUNT 3.39 10^6/uL (4.00-5.40); RED CELL DISTRIBUTION WIDTH 16.5 % (11.5-14.5); VENOUS BASE EXCESS -1.9 (-2.0-2.0); VENOUS HCO3 23.5 MEQ/L (23.0-27.0); VENOUS O2 SATURATION 78.2 % (60.0-80.0); VENOUS PARTIAL PRESSURE CO2 42.5 mmHg (38.0-50.0); VENOUS PARTIAL PRESSURE O2 48.6 mmHg (30.0-50.0); VENOUS STANDARD HCO3 22.5 MEQ/L; VENOUS TOTAL CO2 24.8 MEQ/L (24.0-28.0)
[2017-06-26] MEDS: MAG SULF 1GM/100ML (MAG RUN) 1 GM in APPROPRIATE DILUENT 1 EA IV (23:57)
[2017-06-26] MEDS: methylPREDNISolone INJ 125 MG/2 ML VIAL (J2930) IV (23:57)
[2017-06-27 00:17] LABS: ANION GAP 7 MEQ/L (8-16); BLOOD UREA NITROGEN 19 MG/DL (7-18); CALCIUM LEVEL 8.5 MG/DL (8.5-10.1); CARBON DIOXIDE LEVEL 28 MEQ/L (21-32); CHLORIDE LEVEL 107 MEQ/L (98-107); CREATININE FOR GFR 0.68 MG/DL (0.55-1.30); GLOMERULAR FILTRATION RATE > 60.0 (>58); GLUCOSE, FASTING 142 MG/DL (70-100); POTASSIUM SERUM 3.7 MEQ/L (3.5-5.1); SODIUM LEVEL 142 MEQ/L (136-145)
[2017-06-27] MEDS: IPRATROPIUM 0.5MG/ALBUTEROL 2.5MG INH SOL UD 3ML (DUONEB)(J7620) NEB ×9 (00:28→23:49)
[2017-06-27] MEDS ORDERED: POLYVINYL ALCOHOL OPHTH SOLN 15 ML(LIQUITEARS) OU (02:15)
[2017-06-27] MEDS ORDERED: GLUCAGON FOR INJ 1 MG VIAL (J1610) SC (02:15)
[2017-06-27] MEDS ORDERED: DEXTROSE 50% 50 ML SYRINGE IV (02:15)
[2017-06-27] MEDS ORDERED: GLUCOSE 4 GM CHEW TABLET PO (02:15)
[2017-06-27] MEDS ORDERED: SUMAtriptan SUCCINATE 25 MG TAB PO (02:15)
[2017-06-27 02:44] LABS: C REACTIVE PROTEIN QUANTITATIV 1.67 MG/DL (0.00-0.30)
[2017-06-27 03:06] LABS: ERYTHROCYTE SEDIMENTATION RATE 63 mm/hr (0-20)
[2017-06-27] MEDS: methylPREDNISolone INJ 125 MG/2 ML VIAL (J2930) IV ×3 (05:59→16:57)
[2017-06-27] MEDS: LEVOTHYROXINE 25MCG TABLET (0.025MG) PO (07:01)
[2017-06-27] MEDS: HumaLOG INSULIN (NovoLOG) PER UNIT SC ×4 (07:30→21:28)
[2017-06-27] MEDS: SYMBICORT 160/4.5MCG INHALER 6GM INH ×2 (08:02→19:44)
[2017-06-27 08:16] LABS: BEDSIDE GLUCOSE 390 MG/DL (70-105)
[2017-06-27] MEDS: hydroCHLOROthiazide 25 MG TAB PO (08:22)
[2017-06-27] MEDS: GABAPENTIN 300 MG CAP PO ×3 (08:22→20:48)
[2017-06-27] MEDS: PANTOPRAZOLE 40MG TAB (PROTONIX) PO ×2 (08:22→20:48)
[2017-06-27] MEDS: DULoxetine 30 MG CAP (CYMBALTA) PO (08:22)
[2017-06-27] MEDS: ENOXAPARIN 40 MG/0.4 ML SYRINGE (J1650) SC (08:23)
[2017-06-27] MEDS: LEVEMIR (INSULIN DETEMIR) 1 UNITS/0.01ML SC ×2 (08:23→21:28)
[2017-06-27] MEDS: GEMFIBROZIL 600 MG TAB PO (08:24)
[2017-06-27] MEDS: busPIRone 10 MG TAB PO ×3 (08:24→20:49)
[2017-06-27] MEDS: LISINOPRIL 10 MG TAB PO (08:26)
[2017-06-27 11:54] LABS: BEDSIDE GLUCOSE 291 MG/DL (70-105)
[2017-06-27] MEDS: IBUPROFEN 400 MG TAB PO ×2 (12:07→20:48)
[2017-06-27 16:58] LABS: BEDSIDE GLUCOSE 357 MG/DL (70-105)
[2017-06-27] MEDS: MONTELUKAST 10 MG TAB PO (20:47)
[2017-06-27] MEDS: ARIPiprazole 10 MG TAB PO (20:49)
[2017-06-27] MEDS: traZODone 100 MG TAB PO (20:49)
[2017-06-27 21:01] LABS: BEDSIDE GLUCOSE 347 MG/DL (70-105)
[2017-06-27] MEDS: MELOXICAM (MOBIC) 7.5 MG TAB PO (23:17)
[2017-06-28] MEDS: methylPREDNISolone INJ 125 MG/2 ML VIAL (J2930) IV ×4 (00:30→21:08)
[2017-06-28] MEDS: SODIUM CHLORIDE 0.9% INJ 10 ML SYR IV ×3 (00:30→08:56)
[2017-06-28] MEDS: IPRATROPIUM 0.5MG/ALBUTEROL 2.5MG INH SOL UD 3ML (DUONEB)(J7620) NEB ×6 (02:51→23:02)
[2017-06-28] MEDS: LEVOTHYROXINE 25MCG TABLET (0.025MG) PO (06:28)
[2017-06-28] MEDS: IBUPROFEN 400 MG TAB PO (06:28)
[2017-06-28 06:54] LABS: BASO % 0.2 % (0.0-1.0); HEMATOCRIT 31.6 % (36.0-47.0); HEMOGLOBIN 9.9 g/dl (12.0-15.5); IMMATURE GRANULOCYTE % 1.2 % (0-3.0); LYMPH # 1.5 10^3/uL (1.5-4.5); LYMPH % 8.4 % (24.0-44.0); MEAN CORPUSCULAR HGB CONC 31.3 g/dl (32.0-36.5); MEAN CORPUSCULAR VOLUME 89.5 fl (80.0-96.0); MONO # 0.6 10^3/uL (0.0-0.8); MONO % 3.5 % (0.0-5.0); NEUTROPHILS # 15.4 10^3/uL (1.8-7.7); NEUTROPHILS % 86.7 % (36.0-66.0); PLATELET COUNT, AUTOMATED 328 10^3/uL (150-450); RED BLOOD COUNT 3.53 10^6/uL (4.00-5.40); WHITE BLOOD COUNT 17.8 10^3/uL (4.0-10.0)
[2017-06-28 07:12] LABS: ANION GAP 8 MEQ/L (8-16); BLOOD UREA NITROGEN 26 MG/DL (7-18); CALCIUM LEVEL 9.1 MG/DL (8.5-10.1); CARBON DIOXIDE LEVEL 24 MEQ/L (21-32); CHLORIDE LEVEL 104 MEQ/L (98-107); CREATININE FOR GFR 0.86 MG/DL (0.55-1.30); GLOMERULAR FILTRATION RATE > 60.0 (>58); GLUCOSE, FASTING 329 MG/DL (70-100); SODIUM LEVEL 136 MEQ/L (136-145)
[2017-06-28] MEDS: HumaLOG INSULIN (NovoLOG) PER UNIT SC ×4 (07:30→21:08)
[2017-06-28] MEDS: SYMBICORT 160/4.5MCG INHALER 6GM INH ×2 (08:18→19:56)
[2017-06-28] MEDS: DULoxetine 30 MG CAP (CYMBALTA) PO (08:51)
[2017-06-28] MEDS: GABAPENTIN 300 MG CAP PO ×3 (08:52→21:10)
[2017-06-28] MEDS: LEVEMIR (INSULIN DETEMIR) 1 UNITS/0.01ML SC ×2 (08:52→21:08)
[2017-06-28] MEDS: PANTOPRAZOLE 40MG TAB (PROTONIX) PO ×2 (08:52→21:09)
[2017-06-28] MEDS: hydroCHLOROthiazide 25 MG TAB PO (08:52)
[2017-06-28] MEDS: ENOXAPARIN 40 MG/0.4 ML SYRINGE (J1650) SC (08:53)
[2017-06-28] MEDS: busPIRone 10 MG TAB PO ×3 (08:53→21:09)
[2017-06-28] MEDS: MELOXICAM (MOBIC) 7.5 MG TAB PO (08:54)
[2017-06-28] MEDS: GEMFIBROZIL 600 MG TAB PO (08:54)
[2017-06-28] MEDS: LISINOPRIL 10 MG TAB PO (08:55)
[2017-06-28] MEDS: NORCO, ANEXSIA 5/325MG TABLET (HYDROcodone/ACETAMINOPHEN) PO ×2 (09:04→21:09)
[2017-06-28] MEDS: diazePAM 5 MG TAB PO (11:08)
[2017-06-28 12:00] LABS: BEDSIDE GLUCOSE 351 MG/DL (70-105)
[2017-06-28 17:09] LABS: BEDSIDE GLUCOSE 418 MG/DL (70-105)
[2017-06-28 20:45] LABS: BEDSIDE GLUCOSE 353 MG/DL (70-105)
[2017-06-28] MEDS: traZODone 100 MG TAB PO (21:10)
[2017-06-28] MEDS: ARIPiprazole 10 MG TAB PO (21:10)
[2017-06-28] MEDS: MONTELUKAST 10 MG TAB PO (21:10)
[2017-06-29] MEDS: IPRATROPIUM 0.5MG/ALBUTEROL 2.5MG INH SOL UD 3ML (DUONEB)(J7620) NEB ×5 (03:22→23:09)
[2017-06-29] MEDS: methylPREDNISolone INJ 125 MG/2 ML VIAL (J2930) IV ×3 (06:20→21:37)
[2017-06-29] MEDS: LEVOTHYROXINE 25MCG TABLET (0.025MG) PO (06:20)
[2017-06-29] MEDS: SODIUM CHLORIDE 0.9% INJ 10 ML SYR IV ×4 (06:21→21:56)
[2017-06-29 06:51] LABS: BASO % 0.1 % (0.0-1.0); HEMATOCRIT 29.8 % (36.0-47.0); HEMOGLOBIN 9.3 g/dl (12.0-15.5); IMMATURE GRANULOCYTE % 1.4 % (0-3.0); LYMPH # 2.1 10^3/uL (1.5-4.5); MEAN CORPUSCULAR HEMOGLOBIN 27.9 pg (27.0-33.0); MEAN CORPUSCULAR HGB CONC 31.2 g/dl (32.0-36.5); MEAN CORPUSCULAR VOLUME 89.5 fl (80.0-96.0); MONO # 0.8 10^3/uL (0.0-0.8); MONO % 4.6 % (0.0-5.0); NEUTROPHILS # 14.4 10^3/uL (1.8-7.7); NEUTROPHILS % 81.9 % (36.0-66.0); PLATELET COUNT, AUTOMATED 309 10^3/uL (150-450); RED BLOOD COUNT 3.33 10^6/uL (4.00-5.40); RED CELL DISTRIBUTION WIDTH 16.9 % (11.5-14.5); WHITE BLOOD COUNT 17.6 10^3/uL (4.0-10.0)
[2017-06-29 07:05] LABS: ANION GAP 10 MEQ/L (8-16); BLOOD UREA NITROGEN 31 MG/DL (7-18); CALCIUM LEVEL 8.8 MG/DL (8.5-10.1); CARBON DIOXIDE LEVEL 26 MEQ/L (21-32); CHLORIDE LEVEL 102 MEQ/L (98-107); CREATININE FOR GFR 0.87 MG/DL (0.55-1.30); GLOMERULAR FILTRATION RATE > 60.0 (>58); GLUCOSE, FASTING 341 MG/DL (70-100); POTASSIUM SERUM 3.9 MEQ/L (3.5-5.1); SODIUM LEVEL 138 MEQ/L (136-145)
[2017-06-29] MEDS: SYMBICORT 160/4.5MCG INHALER 6GM INH ×2 (08:25→19:38)
[2017-06-29] MEDS: HumaLOG INSULIN (NovoLOG) PER UNIT SC ×4 (10:03→20:33)
[2017-06-29] MEDS: LEVEMIR (INSULIN DETEMIR) 1 UNITS/0.01ML SC ×2 (10:04→20:34)
[2017-06-29] MEDS: ENOXAPARIN 40 MG/0.4 ML SYRINGE (J1650) SC (10:05)
[2017-06-29] MEDS: MELOXICAM (MOBIC) 7.5 MG TAB PO (10:05)
[2017-06-29] MEDS: DULoxetine 30 MG CAP (CYMBALTA) PO (10:06)
[2017-06-29] MEDS: hydroCHLOROthiazide 25 MG TAB PO (10:07)
[2017-06-29] MEDS: GABAPENTIN 300 MG CAP PO ×3 (10:08→20:31)
[2017-06-29] MEDS: PANTOPRAZOLE 40MG TAB (PROTONIX) PO ×2 (10:08→20:31)
[2017-06-29] MEDS: LISINOPRIL 10 MG TAB PO (10:10)
[2017-06-29] MEDS: busPIRone 10 MG TAB PO ×3 (10:10→20:30)
[2017-06-29] MEDS: NORCO, ANEXSIA 5/325MG TABLET (HYDROcodone/ACETAMINOPHEN) PO ×3 (10:11→21:36)
[2017-06-29] MEDS: GEMFIBROZIL 600 MG TAB PO (10:11)
[2017-06-29] MEDS: IBUPROFEN 400 MG TAB PO (10:22)
[2017-06-29 12:03] LABS: BEDSIDE GLUCOSE 300 MG/DL (70-105)
[2017-06-29] MEDS: diazePAM 5 MG TAB PO ×2 (14:45→22:54)
[2017-06-29 17:34] LABS: BEDSIDE GLUCOSE 347 MG/DL (70-105)
[2017-06-29 20:24] LABS: BEDSIDE GLUCOSE 367 MG/DL (70-105)
[2017-06-29] MEDS: traZODone 100 MG TAB PO (20:31)
[2017-06-29] MEDS: MONTELUKAST 10 MG TAB PO (20:31)
[2017-06-29] MEDS: ARIPiprazole 10 MG TAB PO (20:31)
[2017-06-30] MEDS: IPRATROPIUM 0.5MG/ALBUTEROL 2.5MG INH SOL UD 3ML (DUONEB)(J7620) NEB ×6 (03:18→23:42)
[2017-06-30] MEDS: methylPREDNISolone INJ 125 MG/2 ML VIAL (J2930) IV (05:19)
[2017-06-30] MEDS: LEVOTHYROXINE 25MCG TABLET (0.025MG) PO (05:19)
[2017-06-30] MEDS: SODIUM CHLORIDE 0.9% INJ 10 ML SYR IV ×3 (05:20→17:36)
[2017-06-30 05:45] LABS: BASO % 0.2 % (0.0-1.0); HEMATOCRIT 31.5 % (36.0-47.0); LYMPH # 1.6 10^3/uL (1.5-4.5); MEAN CORPUSCULAR HEMOGLOBIN 28.1 pg (27.0-33.0); MEAN CORPUSCULAR HGB CONC 31.7 g/dl (32.0-36.5); MEAN CORPUSCULAR VOLUME 88.5 fl (80.0-96.0); MONO # 0.7 10^3/uL (0.0-0.8); MONO % 4.8 % (0.0-5.0); NEUTROPHILS # 10.8 10^3/uL (1.8-7.7); PLATELET COUNT, AUTOMATED 305 10^3/uL (150-450); RED BLOOD COUNT 3.56 10^6/uL (4.00-5.40); RED CELL DISTRIBUTION WIDTH 16.7 % (11.5-14.5); WHITE BLOOD COUNT 13.5 10^3/uL (4.0-10.0)
[2017-06-30 06:48] LABS: ANION GAP 6 MEQ/L (8-16); BLOOD UREA NITROGEN 28 MG/DL (7-18); CALCIUM LEVEL 9.3 MG/DL (8.5-10.1); CARBON DIOXIDE LEVEL 31 MEQ/L (21-32); CHLORIDE LEVEL 102 MEQ/L (98-107); CREATININE FOR GFR 0.78 MG/DL (0.55-1.30); GLOMERULAR FILTRATION RATE > 60.0 (>58); GLUCOSE, FASTING 282 MG/DL (70-100); SODIUM LEVEL 139 MEQ/L (136-145)
[2017-06-30] MEDS: SYMBICORT 160/4.5MCG INHALER 6GM INH ×2 (07:49→20:02)
[2017-06-30] MEDS: ENOXAPARIN 40 MG/0.4 ML SYRINGE (J1650) SC (08:41)
[2017-06-30] MEDS: LEVEMIR (INSULIN DETEMIR) 1 UNITS/0.01ML SC ×2 (08:41→20:06)
[2017-06-30] MEDS: HumaLOG INSULIN (NovoLOG) PER UNIT SC ×4 (08:41→20:07)
[2017-06-30] MEDS: hydroCHLOROthiazide 25 MG TAB PO (08:42)
[2017-06-30] MEDS: LISINOPRIL 10 MG TAB PO (08:42)
[2017-06-30] MEDS: GEMFIBROZIL 600 MG TAB PO (08:42)
[2017-06-30] MEDS: DULoxetine 30 MG CAP (CYMBALTA) PO (08:42)
[2017-06-30] MEDS: NORCO, ANEXSIA 5/325MG TABLET (HYDROcodone/ACETAMINOPHEN) PO ×2 (08:43→20:09)
[2017-06-30] MEDS: busPIRone 10 MG TAB PO ×3 (08:43→20:05)
[2017-06-30] MEDS: PANTOPRAZOLE 40MG TAB (PROTONIX) PO ×2 (08:43→20:06)
[2017-06-30] MEDS: GABAPENTIN 300 MG CAP PO ×3 (08:44→20:06)
[2017-06-30] MEDS: MELOXICAM (MOBIC) 7.5 MG TAB PO (09:41)
[2017-06-30 11:50] LABS: BEDSIDE GLUCOSE 365 MG/DL (70-105)
[2017-06-30] MEDS: amLODIPine 5 MG TAB PO ×2 (13:39→20:06)
[2017-06-30] MEDS: methylPREDNISolone INJ 40 MG/1 ML VIAL (J2920) IV (17:33)
[2017-06-30 17:35] LABS: BEDSIDE GLUCOSE 187 MG/DL (70-105)
[2017-06-30] MEDS: traZODone 100 MG TAB PO (20:05)
[2017-06-30] MEDS: MONTELUKAST 10 MG TAB PO (20:06)
[2017-06-30] MEDS: NYSTATIN 100,000 UNITS/GM TOPICAL PWD 15 GM TOP (20:07)
[2017-06-30] MEDS: ARIPiprazole 10 MG TAB PO (20:09)
[2017-06-30 22:25] LABS: BEDSIDE GLUCOSE 269 MG/DL (70-105)
[2017-07-01] MEDS: IPRATROPIUM 0.5MG/ALBUTEROL 2.5MG INH SOL UD 3ML (DUONEB)(J7620) NEB ×5 (03:38→20:52)
[2017-07-01] MEDS: methylPREDNISolone INJ 40 MG/1 ML VIAL (J2920) IV ×2 (05:23→17:25)
[2017-07-01] MEDS: LEVOTHYROXINE 25MCG TABLET (0.025MG) PO (05:23)
[2017-07-01] MEDS: NORCO, ANEXSIA 5/325MG TABLET (HYDROcodone/ACETAMINOPHEN) PO ×3 (05:37→20:49)
[2017-07-01 05:42] LABS: HEMATOCRIT 32.7 % (36.0-47.0); HEMOGLOBIN 10.1 g/dl (12.0-15.5); MEAN CORPUSCULAR HEMOGLOBIN 27.4 pg (27.0-33.0); MEAN CORPUSCULAR HGB CONC 30.9 g/dl (32.0-36.5); MEAN CORPUSCULAR VOLUME 88.6 fl (80.0-96.0); PLATELET COUNT, AUTOMATED 286 10^3/uL (150-450); RED BLOOD COUNT 3.69 10^6/uL (4.00-5.40); RED CELL DISTRIBUTION WIDTH 16.5 % (11.5-14.5); WHITE BLOOD COUNT 13.4 10^3/uL (4.0-10.0)
[2017-07-01 05:43] LABS: ADD MANUAL DIFFER YES; DIFF SLIDE NUMBER 23; POSITIVE DIFF POS FLAG
[2017-07-01 06:17] LABS: ANION GAP 4 MEQ/L (8-16); BLOOD UREA NITROGEN 30 MG/DL (7-18); CALCIUM LEVEL 9.2 MG/DL (8.5-10.1); CARBON DIOXIDE LEVEL 35 MEQ/L (21-32); CHLORIDE LEVEL 100 MEQ/L (98-107); CREATININE FOR GFR 0.68 MG/DL (0.55-1.30); GLOMERULAR FILTRATION RATE > 60.0 (>58); GLUCOSE, FASTING 137 MG/DL (70-100); POTASSIUM SERUM 3.4 MEQ/L (3.5-5.1); SODIUM LEVEL 139 MEQ/L (136-145)
[2017-07-01 06:23] LABS: ATYPICAL LYMPH 3 % (0-5); BANDS 1 % (< 11); LYMPHOCYTES 35 % (16-52); MONOCYTES 4 % (0-8); NEUTROPHILS 57 % (35-75); PLATELET ESTIMATE NORMAL (NORMAL)
[2017-07-01] MEDS: SYMBICORT 160/4.5MCG INHALER 6GM INH ×2 (07:44→20:00)
[2017-07-01] MEDS: HumaLOG INSULIN (NovoLOG) PER UNIT SC ×4 (08:21→20:46)
[2017-07-01] MEDS: LEVEMIR (INSULIN DETEMIR) 1 UNITS/0.01ML SC ×3 (08:21→20:46)
[2017-07-01] MEDS: GEMFIBROZIL 600 MG TAB PO (08:21)
[2017-07-01] MEDS: DULoxetine 30 MG CAP (CYMBALTA) PO (08:22)
[2017-07-01] MEDS: amLODIPine 5 MG TAB PO ×2 (08:22→20:50)
[2017-07-01] MEDS: GABAPENTIN 300 MG CAP PO ×3 (08:23→20:47)
[2017-07-01] MEDS: busPIRone 10 MG TAB PO ×3 (08:24→20:46)
[2017-07-01] MEDS: hydroCHLOROthiazide 25 MG TAB PO (08:24)
[2017-07-01] MEDS: LISINOPRIL 10 MG TAB PO (08:25)
[2017-07-01] MEDS: PANTOPRAZOLE 40MG TAB (PROTONIX) PO ×2 (08:25→20:47)
[2017-07-01] MEDS: ENOXAPARIN 40 MG/0.4 ML SYRINGE (J1650) SC (08:26)
[2017-07-01] MEDS: SODIUM CHLORIDE 0.9% INJ 10 ML SYR IV ×2 (08:26→17:26)
[2017-07-01] MEDS: NYSTATIN 100,000 UNITS/GM TOPICAL PWD 15 GM TOP ×2 (08:27→20:51)
[2017-07-01] MEDS: MELOXICAM (MOBIC) 7.5 MG TAB PO (08:28)
[2017-07-01] MEDS: POTASSIUM CHLORIDE 10 MEQ SR TABLET PO (09:38)
[2017-07-01 12:02] LABS: BEDSIDE GLUCOSE 215 MG/DL (70-105)
[2017-07-01 16:57] LABS: BEDSIDE GLUCOSE 139 MG/DL (70-105)
[2017-07-01 20:12] LABS: BEDSIDE GLUCOSE 266 MG/DL (70-105)
[2017-07-01] MEDS: MONTELUKAST 10 MG TAB PO (20:47)
[2017-07-01] MEDS: traZODone 100 MG TAB PO (20:47)
[2017-07-01] MEDS: ARIPiprazole 10 MG TAB PO (20:50)
[2017-07-02] MEDS: NORCO, ANEXSIA 5/325MG TABLET (HYDROcodone/ACETAMINOPHEN) PO (00:26)
[2017-07-02] MEDS: IPRATROPIUM 0.5MG/ALBUTEROL 2.5MG INH SOL UD 3ML (DUONEB)(J7620) NEB ×4 (04:00→11:31)
[2017-07-02] MEDS: SODIUM CHLORIDE 0.9% INJ 10 ML SYR IV ×3 (05:50→12:22)
[2017-07-02] MEDS: LEVOTHYROXINE 25MCG TABLET (0.025MG) PO (05:50)
[2017-07-02] MEDS: methylPREDNISolone INJ 40 MG/1 ML VIAL (J2920) IV (05:51)
[2017-07-02 06:17] LABS: HEMATOCRIT 33.4 % (36.0-47.0); HEMOGLOBIN 10.5 g/dl (12.0-15.5); MEAN CORPUSCULAR HEMOGLOBIN 27.7 pg (27.0-33.0); MEAN CORPUSCULAR HGB CONC 31.4 g/dl (32.0-36.5); MEAN CORPUSCULAR VOLUME 88.1 fl (80.0-96.0); PLATELET COUNT, AUTOMATED 318 10^3/uL (150-450); RED BLOOD COUNT 3.79 10^6/uL (4.00-5.40); RED CELL DISTRIBUTION WIDTH 16.3 % (11.5-14.5); WHITE BLOOD COUNT 13.9 10^3/uL (4.0-10.0)
[2017-07-02 06:21] LABS: ADD MANUAL DIFFER YES; DIFF SLIDE NUMBER 13; POSITIVE DIFF POS FLAG
[2017-07-02 06:35] LABS: ANION GAP 5 MEQ/L (8-16); BLOOD UREA NITROGEN 36 MG/DL (7-18); CALCIUM LEVEL 8.6 MG/DL (8.5-10.1); CARBON DIOXIDE LEVEL 32 MEQ/L (21-32); CHLORIDE LEVEL 101 MEQ/L (98-107); CREATININE FOR GFR 0.67 MG/DL (0.55-1.30); GLOMERULAR FILTRATION RATE > 60.0 (>58); GLUCOSE, FASTING 163 MG/DL (70-100); POTASSIUM SERUM 3.6 MEQ/L (3.5-5.1); SODIUM LEVEL 138 MEQ/L (136-145)
[2017-07-02] MEDS: SYMBICORT 160/4.5MCG INHALER 6GM INH (07:24)
[2017-07-02 07:46] LABS: ATYPICAL LYMPH 8 % (0-5); LYMPHOCYTES 28 % (16-52); MONOCYTES 7 % (0-8); NEUTROPHILS 57 % (35-75); PLATELET ESTIMATE NORMAL (NORMAL)
[2017-07-02] MEDS: HumaLOG INSULIN (NovoLOG) PER UNIT SC ×2 (07:54→12:00)
[2017-07-02] MEDS ORDERED: NS 1,000 ML IV (08:00)
[2017-07-02] MEDS: DULoxetine 30 MG CAP (CYMBALTA) PO (08:45)
[2017-07-02] MEDS: POTASSIUM CHLORIDE 10 MEQ SR TABLET PO (08:46)
[2017-07-02] MEDS: LEVEMIR (INSULIN DETEMIR) 1 UNITS/0.01ML SC (08:46)
[2017-07-02] MEDS: MELOXICAM (MOBIC) 7.5 MG TAB PO (08:47)
[2017-07-02] MEDS: amLODIPine 5 MG TAB PO (08:47)
[2017-07-02] MEDS: GABAPENTIN 300 MG CAP PO (08:47)
[2017-07-02] MEDS: GEMFIBROZIL 600 MG TAB PO (08:48)
[2017-07-02] MEDS: PANTOPRAZOLE 40MG TAB (PROTONIX) PO (08:48)
[2017-07-02] MEDS: LISINOPRIL 10 MG TAB PO (08:48)
[2017-07-02] MEDS: busPIRone 10 MG TAB PO (08:49)
[2017-07-02] MEDS: NYSTATIN 100,000 UNITS/GM TOPICAL PWD 15 GM TOP (08:55)
[2017-07-02] MEDS: predniSONE 5MG/5ML SOLN ORAL SYRINGE PO (10:54)
[2017-07-02 11:41] LABS: BEDSIDE GLUCOSE 228 MG/DL (70-105)
== END 2017-07-02 12:35 | disposition home or self-care (01) | DRG 140 ==
LOC: M ED INP 22:42 → M ED 22:41 → M PED 06-27 05:10
DX: J44.1 Chronic obstructive pulmonary disease with (acute) exacerbation (principal); E11.40 Type 2 diabetes mellitus with diabetic neuropathy, unspecified; E88.01 Alpha-1-antitrypsin deficiency; J45.901 Unspecified asthma with (acute) exacerbation; K21.9 Gastro-esophageal reflux disease without esophagitis; F43.10 Post-traumatic stress disorder, unspecified; M62.838 Other muscle spasm; E78.1 Pure hyperglyceridemia; I10 Essential (primary) hypertension; E03.9 Hypothyroidism, unspecified; G43.909 Migraine, unspecified, not intractable, without status migrainosus; G47.00 Insomnia, unspecified; Z79.4 Long term (current) use of insulin; Z79.899 Other long term (current) drug therapy; Z88.8 Allergy status to other drugs, medicaments and biological substances; Z90.49 Acquired absence of other specified parts of digestive tract; Z87.891 Personal history of nicotine dependence; Z95.828 Presence of other vascular implants and grafts

== ENCOUNTER 2017-07-14 19:13 | Emergency (ER) | payer OTHER ==
[2017-07-14] MEDS: diphenhydrAMINE INJ 50MG/ML VIAL (J1200) IV (22:50)
[2017-07-14] MEDS: NS 1,000 ML IV (22:50)
[2017-07-14] MEDS: KETOROLAC 30 MG/ML VIAL (J1885) IV (22:51)
[2017-07-14] MEDS: METOCLOPRAMIDE INJ 10MG/2ML VIAL (J2765) IV (22:51)
== END 2017-07-15 00:02 | disposition home or self-care (01) ==
LOC: M ED 07-15 00:02
DX: G43.909 Migraine, unspecified, not intractable, without status migrainosus (principal); J44.9 Chronic obstructive pulmonary disease, unspecified; K21.9 Gastro-esophageal reflux disease without esophagitis; Z79.899 Other long term (current) drug therapy; Z79.890 Hormone replacement therapy; Z79.4 Long term (current) use of insulin; Z88.8 Allergy status to other drugs, medicaments and biological substances
CPT/HCPCS: J1200

== ENCOUNTER 2017-07-20 14:58 | Inpatient (IN) | payer OTHER ==
[2017-07-20] MEDS: ALBUTEROL SULFATE 2.5 MG/0.5 ML INH NEB SOLN NEB ×4 (15:29→17:55)
[2017-07-20] MEDS: NS 1,000 ML IV (16:06)
[2017-07-20] MEDS: methylPREDNISolone INJ 125 MG/2 ML VIAL (J2930) IV (16:06)
[2017-07-20 16:19] LABS: INFLUENZA A AMPLIFICATION NEGATIVE (NEGATIVE); INFLUENZA B AMPLIFICATION NEGATIVE (NEGATIVE)
[2017-07-20 16:23] LABS: HEMATOCRIT 30.9 % (36.0-47.0); HEMOGLOBIN 9.4 g/dl (12.0-15.5); MEAN CORPUSCULAR HEMOGLOBIN 27.3 pg (27.0-33.0); MEAN CORPUSCULAR HGB CONC 30.4 g/dl (32.0-36.5); MEAN CORPUSCULAR VOLUME 89.8 fl (80.0-96.0); PLATELET COUNT, AUTOMATED 300 10^3/uL (150-450); RED BLOOD COUNT 3.44 10^6/uL (4.00-5.40)
[2017-07-20 16:43] LABS: ALBUMIN/GLOBULIN RATIO 0.86 (1.00-1.93); ALKALINE PHOSPHATASE 193 U/L (45-117); ALT/SGPT 44 U/L (12-78); ANION GAP 7 MEQ/L (8-16); AST/SGOT 20 U/L (7-37); BILIRUBIN,DIRECT < 0.1 MG/DL (0.0-0.2); BILIRUBIN,TOTAL 0.2 MG/DL (0.2-1.0); BLOOD UREA NITROGEN 9 MG/DL (7-18); CALCIUM LEVEL 7.7 MG/DL (8.5-10.1); CARBON DIOXIDE LEVEL 27 MEQ/L (21-32); CHLORIDE LEVEL 107 MEQ/L (98-107); CREATININE FOR GFR 0.65 MG/DL (0.55-1.30); GLOMERULAR FILTRATION RATE > 60.0 (>58); GLUCOSE, FASTING 293 MG/DL (70-100); MAGNESIUM LEVEL 1.7 MG/DL (1.8-2.4); NT-PRO BNP 158 PG/ML (<125); POTASSIUM SERUM 3.4 MEQ/L (3.5-5.1); SODIUM LEVEL 141 MEQ/L (136-145); TOTAL PROTEIN 6.5 GM/DL (6.4-8.2)
[2017-07-20 16:55] LABS: POSITIVE DIFF POS FLAG; WHITE BLOOD COUNT 13.6 10^3/uL (4.0-10.0)
[2017-07-20 16:56] LABS: ADD MANUAL DIFFER YES; DIFF SLIDE NUMBER 113
[2017-07-20 18:03] LABS: ATYPICAL LYMPH 2 % (0-5); BASOPHILS 1 % (0-4); EOSINOPHILS 3 % (0-5); LYMPHOCYTES 43 % (16-52); MONOCYTES 4 % (0-8); NEUTROPHILS 47 % (35-75); PLATELET ESTIMATE NORMAL (NORMAL)
[2017-07-20] MEDS: MAG SULF 1GM/100ML (MAG RUN) 1 GM in APPROPRIATE DILUENT 1 EA IV (18:07)
[2017-07-20] MEDS ORDERED: ONDANSETRON 4MG/2ML VIAL (J2405) IV (19:30)
[2017-07-20] MEDS ORDERED: GLUCAGON FOR INJ 1 MG VIAL (J1610) SC (19:30)
[2017-07-20] MEDS ORDERED: GLUCOSE 4 GM CHEW TABLET PO (19:30)
[2017-07-20] MEDS: SODIUM CHLORIDE HYPERTONIC 3% 15ML NEB SOL NEB ×2 (19:30)
[2017-07-20] MEDS ORDERED: DEXTROSE 50% 50 ML SYRINGE IV (19:30)
[2017-07-20] MEDS ORDERED: IPRATROPIUM 0.5MG/ALBUTEROL 2.5MG INH SOL UD 3ML (DUONEB)(J7620) NEB (19:30)
[2017-07-20] MEDS ORDERED: ACETAMINOPHEN TAB 650MG DOSE (2X325MG) PO (19:30)
[2017-07-20] MEDS ORDERED: POLYVINYL ALCOHOL OPHTH SOLN 15 ML(LIQUITEARS) OU (20:00)
[2017-07-20] MEDS: IPRATROPIUM 0.5MG/ALBUTEROL 2.5MG INH SOL UD 3ML (DUONEB)(J7620) NEB (20:00)
[2017-07-20 20:58] LABS: C REACTIVE PROTEIN QUANTITATIV 7.55 MG/DL (0.00-0.30)
[2017-07-20] MEDS: SYMBICORT 160/4.5MCG INHALER 6GM INH (21:00)
[2017-07-20 21:08] LABS: FREE THYROXINE INDEX 2.8 % (1.3-4.8); T UPTAKE 29 % (30-39); THYROID STIMULATING HORMONE 0.218 uIU/ML (0.358-3.740); THYROXINE (T4) 9.7 UG/DL (4.5-12.0)
[2017-07-20] MEDS: AZITHROMYCIN INJ 500 MG, VIAL MATE ADAPTER 1 EACH in D5W 250 ML IV (21:42)
[2017-07-20 22:27] LABS: BEDSIDE GLUCOSE 334 MG/DL (70-105)
[2017-07-20] MEDS: LEVEMIR (INSULIN DETEMIR) 1 UNITS/0.01ML SC (22:31)
[2017-07-20] MEDS: HumaLOG INSULIN (NovoLOG) PER UNIT SC (22:31)
[2017-07-20] MEDS: POTASSIUM CHLORIDE 10 MEQ SR TABLET PO (22:32)
[2017-07-20] MEDS: DULoxetine 30 MG CAP (CYMBALTA) PO (22:33)
[2017-07-20] MEDS: traZODone 100 MG TAB PO (22:33)
[2017-07-20] MEDS: SENOKOT S TAB PO (22:34)
[2017-07-20] MEDS: busPIRone 10 MG TAB PO (22:34)
[2017-07-20] MEDS: PANTOPRAZOLE 40MG TAB (PROTONIX) PO (22:35)
[2017-07-20] MEDS: cefTRIAXone SOD 2 GM in D5W MINI-BAG PLUS 50 ML IV (22:35)
[2017-07-20] MEDS: ARIPiprazole 10 MG TAB PO (22:36)
[2017-07-20] MEDS: VENLAFAXINE **XR** 37.5 MG CAPSULE PO (22:36)
[2017-07-20] MEDS: GABAPENTIN 300 MG CAP PO (22:38)
[2017-07-21] MEDS ORDERED: SODIUM CHLORIDE 0.9% INJ 10 ML SYR IV (00:30)
[2017-07-21] MEDS: IPRATROPIUM 0.5MG/ALBUTEROL 2.5MG INH SOL UD 3ML (DUONEB)(J7620) NEB ×4 (01:33→20:00)
[2017-07-21] MEDS: methylPREDNISolone INJ 125 MG/2 ML VIAL (J2930) IV ×2 (04:34→18:07)
[2017-07-21 05:21] LABS: HEMATOCRIT 29.2 % (36.0-47.0); HEMOGLOBIN 8.9 g/dl (12.0-15.5); MEAN CORPUSCULAR HEMOGLOBIN 27.4 pg (27.0-33.0); MEAN CORPUSCULAR HGB CONC 30.5 g/dl (32.0-36.5); MEAN CORPUSCULAR VOLUME 89.8 fl (80.0-96.0); PLATELET COUNT, AUTOMATED 297 10^3/uL (150-450); RED BLOOD COUNT 3.25 10^6/uL (4.00-5.40); RED CELL DISTRIBUTION WIDTH 17.3 % (11.5-14.5); WHITE BLOOD COUNT 13.2 10^3/uL (4.0-10.0)
[2017-07-21] MEDS: HEPARIN SOD (PORCINE) 5000 UNITS/ML VIAL SC ×3 (05:44→21:25)
[2017-07-21] MEDS: LEVOTHYROXINE 25MCG TABLET (0.025MG) PO (05:44)
[2017-07-21 05:45] LABS: ANION GAP 5 MEQ/L (8-16); BLOOD UREA NITROGEN 11 MG/DL (7-18); C REACTIVE PROTEIN QUANTITATIV 5.91 MG/DL (0.00-0.30); CALCIUM LEVEL 8.3 MG/DL (8.5-10.1); CARBON DIOXIDE LEVEL 27 MEQ/L (21-32); CHLORIDE LEVEL 111 MEQ/L (98-107); CREATININE FOR GFR 0.56 MG/DL (0.55-1.30); GLOMERULAR FILTRATION RATE > 60.0 (>58); GLUCOSE, FASTING 216 MG/DL (70-100); MAGNESIUM LEVEL 2.4 MG/DL (1.8-2.4); POTASSIUM SERUM 4.6 MEQ/L (3.5-5.1); SODIUM LEVEL 143 MEQ/L (136-145)
[2017-07-21] MEDS: LEVEMIR (INSULIN DETEMIR) 1 UNITS/0.01ML SC ×2 (08:20→21:24)
[2017-07-21] MEDS: HumaLOG INSULIN (NovoLOG) PER UNIT SC ×4 (08:20→21:24)
[2017-07-21] MEDS: LISINOPRIL 10 MG TAB PO (08:21)
[2017-07-21] MEDS: GABAPENTIN 300 MG CAP PO ×3 (08:21→18:07)
[2017-07-21] MEDS: VENLAFAXINE **XR** 37.5 MG CAPSULE PO ×2 (08:21→21:26)
[2017-07-21] MEDS: SENOKOT S TAB PO ×2 (08:21→21:26)
[2017-07-21] MEDS: GEMFIBROZIL 600 MG TAB PO (08:21)
[2017-07-21] MEDS: busPIRone 10 MG TAB PO ×3 (08:22→21:25)
[2017-07-21] MEDS: PANTOPRAZOLE 40MG TAB (PROTONIX) PO ×2 (08:22→21:25)
[2017-07-21] MEDS: MELOXICAM (MOBIC) 7.5 MG TAB PO (08:22)
[2017-07-21] MEDS: DULoxetine 30 MG CAP (CYMBALTA) PO ×2 (08:22→21:26)
[2017-07-21] MEDS: MONTELUKAST 10 MG TAB PO (08:24)
[2017-07-21] MEDS: SYMBICORT 160/4.5MCG INHALER 6GM INH ×2 (08:41→20:33)
[2017-07-21] MEDS ORDERED: PANTOPRAZOLE 40MG TAB (PROTONIX) PO (09:00)
[2017-07-21 11:58] LABS: BEDSIDE GLUCOSE 227 MG/DL (70-105)
[2017-07-21 16:56] LABS: BEDSIDE GLUCOSE 321 MG/DL (70-105)
[2017-07-21] MEDS: SODIUM CHLORIDE 0.9% INJ 10 ML SYR IV (18:09)
[2017-07-21 21:04] LABS: BEDSIDE GLUCOSE 273 MG/DL (70-105)
[2017-07-21] MEDS: AZITHROMYCIN INJ 500 MG, VIAL MATE ADAPTER 1 EACH in D5W 250 ML IV (21:24)
[2017-07-21] MEDS: traZODone 100 MG TAB PO (21:25)
[2017-07-21] MEDS: ARIPiprazole 10 MG TAB PO (21:26)
[2017-07-21] MEDS: cefTRIAXone SOD 2 GM in D5W MINI-BAG PLUS 50 ML IV (23:08)
[2017-07-22] MEDS: IPRATROPIUM 0.5MG/ALBUTEROL 2.5MG INH SOL UD 3ML (DUONEB)(J7620) NEB ×2 (01:27→06:40)
[2017-07-22] MEDS: methylPREDNISolone INJ 125 MG/2 ML VIAL (J2930) IV (04:09)
[2017-07-22] MEDS: HEPARIN SOD (PORCINE) 5000 UNITS/ML VIAL SC (05:35)
[2017-07-22] MEDS: LEVOTHYROXINE 25MCG TABLET (0.025MG) PO (05:35)
[2017-07-22] MEDS: SODIUM CHLORIDE 0.9% INJ 10 ML SYR IV ×2 (05:35→11:46)
[2017-07-22 05:43] LABS: HEMATOCRIT 30.1 % (36.0-47.0); HEMOGLOBIN 9.3 g/dl (12.0-15.5); MEAN CORPUSCULAR HEMOGLOBIN 27.9 pg (27.0-33.0); MEAN CORPUSCULAR HGB CONC 30.9 g/dl (32.0-36.5); MEAN CORPUSCULAR VOLUME 90.4 fl (80.0-96.0); PLATELET COUNT, AUTOMATED 328 10^3/uL (150-450); RED BLOOD COUNT 3.33 10^6/uL (4.00-5.40); RED CELL DISTRIBUTION WIDTH 17.2 % (11.5-14.5); WHITE BLOOD COUNT 13.5 10^3/uL (4.0-10.0)
[2017-07-22 06:00] LABS: ANION GAP 6 MEQ/L (8-16); BLOOD UREA NITROGEN 20 MG/DL (7-18); C REACTIVE PROTEIN QUANTITATIV 2.74 MG/DL (0.00-0.30); CALCIUM LEVEL 8.6 MG/DL (8.5-10.1); CARBON DIOXIDE LEVEL 26 MEQ/L (21-32); CHLORIDE LEVEL 108 MEQ/L (98-107); CREATININE FOR GFR 0.74 MG/DL (0.55-1.30); GLOMERULAR FILTRATION RATE > 60.0 (>58); GLUCOSE, FASTING 315 MG/DL (70-100); MAGNESIUM LEVEL 1.9 MG/DL (1.8-2.4); POTASSIUM SERUM 4.2 MEQ/L (3.5-5.1); SODIUM LEVEL 140 MEQ/L (136-145)
[2017-07-22] MEDS: SYMBICORT 160/4.5MCG INHALER 6GM INH (06:40)
[2017-07-22] MEDS: HumaLOG INSULIN (NovoLOG) PER UNIT SC (08:38)
[2017-07-22] MEDS: busPIRone 10 MG TAB PO (08:39)
[2017-07-22] MEDS: DULoxetine 30 MG CAP (CYMBALTA) PO (08:39)
[2017-07-22] MEDS: LEVEMIR (INSULIN DETEMIR) 1 UNITS/0.01ML SC (08:39)
[2017-07-22] MEDS: MELOXICAM (MOBIC) 7.5 MG TAB PO (08:39)
[2017-07-22] MEDS: GABAPENTIN 300 MG CAP PO (08:40)
[2017-07-22] MEDS: GEMFIBROZIL 600 MG TAB PO (08:40)
[2017-07-22] MEDS: SENOKOT S TAB PO (08:40)
[2017-07-22] MEDS: VENLAFAXINE **XR** 37.5 MG CAPSULE PO (08:40)
[2017-07-22] MEDS: PANTOPRAZOLE 40MG TAB (PROTONIX) PO (08:40)
[2017-07-22] MEDS: MONTELUKAST 10 MG TAB PO (08:40)
[2017-07-22] MEDS: LISINOPRIL 10 MG TAB PO (08:42)
[2017-07-22] MEDS: tiZANidine 4 MG TAB PO (09:04)
[2017-07-22 11:33] LABS: BEDSIDE GLUCOSE 313 MG/DL (70-105)
[2017-07-23] MEDS ORDERED: predniSONE 20 MG TAB PO (09:00)
== END 2017-07-22 12:00 | disposition home or self-care (01) | DRG 140 ==
LOC: M ED 14:58 → M ED INP 19:28 → M MSPAV 21:07
DX: J44.1 Chronic obstructive pulmonary disease with (acute) exacerbation (principal); E88.01 Alpha-1-antitrypsin deficiency; E11.40 Type 2 diabetes mellitus with diabetic neuropathy, unspecified; J45.901 Unspecified asthma with (acute) exacerbation; K21.9 Gastro-esophageal reflux disease without esophagitis; E78.5 Hyperlipidemia, unspecified; M79.7 Fibromyalgia; G43.909 Migraine, unspecified, not intractable, without status migrainosus; E66.9 Obesity, unspecified; E03.9 Hypothyroidism, unspecified; I10 Essential (primary) hypertension; F41.9 Anxiety disorder, unspecified; F32.9 Major depressive disorder, single episode, unspecified; F43.10 Post-traumatic stress disorder, unspecified; Z79.899 Other long term (current) drug therapy; Z88.8 Allergy status to other drugs, medicaments and biological substances; Z83.3 Family history of diabetes mellitus; Z87.891 Personal history of nicotine dependence; M62.838 Other muscle spasm

== ENCOUNTER 2017-08-22 15:19 | Inpatient (IN) | payer OTHER ==
[2017-08-22] MEDS ORDERED: ASPIRIN 81 MG CHEW TABLET PO (15:45)
[2017-08-22] MEDS: NS 1,000 ML IV (15:45)
[2017-08-22 16:09] LABS: HEMATOCRIT 25.6 % (36.0-47.0); HEMOGLOBIN 7.7 g/dl (12.0-15.5); MEAN CORPUSCULAR HEMOGLOBIN 27.1 pg (27.0-33.0); MEAN CORPUSCULAR HGB CONC 30.1 g/dl (32.0-36.5); MEAN CORPUSCULAR VOLUME 90.1 fl (80.0-96.0); PLATELET COUNT, AUTOMATED 256 10^3/uL (150-450); RED BLOOD COUNT 2.84 10^6/uL (4.00-5.40); RED CELL DISTRIBUTION WIDTH 16.4 % (11.5-14.5)
[2017-08-22 16:15] LABS: ADD MANUAL DIFFER YES; DIFF SLIDE NUMBER 301; POSITIVE DIFF POS FLAG; WHITE BLOOD COUNT 13.4 10^3/uL (4.0-10.0)
[2017-08-22 16:21] LABS: INR 0.92; PROTHROMBIN TIME 12.4 SECONDS (12.4-14.5)
[2017-08-22] MEDS: IPRATROPIUM 0.5MG/ALBUTEROL 2.5MG INH SOL UD 3ML (DUONEB)(J7620) NEB ×4 (16:23→22:32)
[2017-08-22 16:32] LABS: ABG BASE EXCESS 0.1 (-2.0-2.0); ABG HCO3 24.2 MEQ/L (22.0-26.0); ABG O2 SATURATION 98.2 % (95.0-99.0); ABG PARTIAL PRESSURE CO2 36.9 mmHg (35.0-45.0); ABG PARTIAL PRESSURE O2 127.5 mmHg (75.0-100.0); ABG STANDARD HCO3 24.6 MEQ/L (22.0-26.0); ABG TOTAL CO2 25.3 MEQ/L (22.0-29.0); ABG pH (ARTERIAL) 7.434 UNITS (7.350-7.450)
[2017-08-22 16:40] LABS: ATYPICAL LYMPH 4 % (0-5); BASOPHILS 1 % (0-4); EOSINOPHILS 2 % (0-5); LYMPHOCYTES 60 % (16-52); MONOCYTES 2 % (0-8); NEUTROPHILS 31 % (35-75); PLATELET ESTIMATE NORMAL (NORMAL)
[2017-08-22 16:40] LABS: LACTIC ACID SEPSIS PROTOCOL 3.1 MMOL/L (0.4-2.0)
[2017-08-22 16:41] LABS: ALBUMIN 3.3 GM/DL (3.2-5.2); ALBUMIN/GLOBULIN RATIO 0.85 (1.00-1.93); ALKALINE PHOSPHATASE 183 U/L (45-117); ALT/SGPT 52 U/L (12-78); ANION GAP 10 MEQ/L (8-16); AST/SGOT 34 U/L (7-37); BILIRUBIN,DIRECT < 0.1 MG/DL (0.0-0.2); BILIRUBIN,TOTAL 0.2 MG/DL (0.2-1.0); BLOOD UREA NITROGEN 17 MG/DL (7-18); CALCIUM LEVEL 8.2 MG/DL (8.5-10.1); CARBON DIOXIDE LEVEL 25 MEQ/L (21-32); CHLORIDE LEVEL 104 MEQ/L (98-107); CK-MB VALUE MASS < 1.0 NG/ML (<3.6); CPK CREATINE PHOSPHOKINASE 54 U/L (26-192); CREATININE FOR GFR 0.91 MG/DL (0.55-1.30); GLOMERULAR FILTRATION RATE > 60.0 (>58); GLUCOSE, FASTING 217 MG/DL (70-100); MB/CK RELATIVE INDEX 1.85 (< OR =4); NT-PRO BNP 8 PG/ML (<125); POTASSIUM SERUM 3.1 MEQ/L (3.5-5.1); SODIUM LEVEL 139 MEQ/L (136-145); TOTAL PROTEIN 7.2 GM/DL (6.4-8.2); TROPONIN I < 0.02 NG/ML (< 0.10)
[2017-08-22] MEDS: ALBUTEROL SULFATE 2.5 MG/0.5 ML INH NEB SOLN INH (17:01)
[2017-08-22 17:50] LABS: HEMATOCRIT 32.1 % (36.0-47.0); HEMOGLOBIN 9.9 g/dl (12.0-15.5); MEAN CORPUSCULAR HEMOGLOBIN 27.3 pg (27.0-33.0); MEAN CORPUSCULAR HGB CONC 30.8 g/dl (32.0-36.5); MEAN CORPUSCULAR VOLUME 88.4 fl (80.0-96.0); PLATELET COUNT, AUTOMATED 282 10^3/uL (150-450); RED BLOOD COUNT 3.63 10^6/uL (4.00-5.40); RED CELL DISTRIBUTION WIDTH 16.3 % (11.5-14.5); WHITE BLOOD COUNT 12.6 10^3/uL (4.0-10.0)
[2017-08-22] MEDS ORDERED: POLYVINYL ALCOHOL OPHTH SOLN 15 ML(LIQUITEARS) OU (20:30)
[2017-08-22] MEDS ORDERED: ONDANSETRON 4MG/2ML VIAL (J2405) IV (20:30)
[2017-08-22] MEDS ORDERED: SUMAtriptan SUCCINATE 25 MG TAB PO (20:30)
[2017-08-22] MEDS ORDERED: GLUCAGON FOR INJ 1 MG VIAL (J1610) SC (20:30)
[2017-08-22] MEDS ORDERED: DEXTROSE 50% 50 ML SYRINGE IV (20:30)
[2017-08-22] MEDS ORDERED: GLUCOSE 4 GM CHEW TABLET PO (20:30)
[2017-08-22] MEDS ORDERED: DULoxetine 30 MG CAP (CYMBALTA) PO (21:00)
[2017-08-22] MEDS ORDERED: LEVEMIR (INSULIN DETEMIR) 1 UNITS/0.01ML SC (21:00)
[2017-08-22] MEDS: SYMBICORT 160/4.5MCG INHALER 6GM INH (21:00)
[2017-08-22] MEDS ORDERED: methylPREDNISolone INJ 40 MG/1 ML VIAL (J2920) IV (22:00)
[2017-08-22] MEDS: ACETAMINOPHEN TAB 650MG DOSE (2X325MG) PO (22:28)
[2017-08-22 22:47] LABS: BEDSIDE GLUCOSE 421 MG/DL (70-105)
[2017-08-22 23:27] LABS: BEDSIDE GLUCOSE 462 MG/DL (70-105)
[2017-08-22] MEDS ORDERED: PILL CRUSHER/CUTTER 1 EACH XX (23:30)
[2017-08-23] MEDS: HumaLOG INSULIN (NovoLOG) PER UNIT SC ×5 (00:03→21:00)
[2017-08-23] MEDS: MONTELUKAST 10 MG TAB PO ×2 (00:14→20:49)
[2017-08-23] MEDS: POTASSIUM CHLORIDE 10 MEQ SR TABLET PO (00:14)
[2017-08-23] MEDS: traZODone 100 MG TAB PO ×2 (00:15→20:48)
[2017-08-23] MEDS: FAMOTIDINE 20 MG TAB PO ×2 (00:15→20:48)
[2017-08-23] MEDS: VENLAFAXINE **XR** 37.5 MG CAPSULE PO ×3 (00:16→20:49)
[2017-08-23] MEDS: ARIPiprazole 10 MG TAB PO ×2 (00:16→20:48)
[2017-08-23] MEDS: busPIRone 10 MG TAB PO ×4 (00:16→20:48)
[2017-08-23] MEDS: DULoxetine 30 MG CAP (CYMBALTA) PO ×3 (00:24→20:48)
[2017-08-23] MEDS: GABAPENTIN 300 MG CAP PO ×4 (00:24→17:56)
[2017-08-23] MEDS: NORCO, ANEXSIA 5/325MG TABLET (HYDROcodone/ACETAMINOPHEN) PO ×4 (00:25→21:40)
[2017-08-23] MEDS: tiZANidine 4 MG TAB PO ×4 (01:10→20:48)
[2017-08-23] MEDS: methylPREDNISolone INJ 125 MG/2 ML VIAL (J2930) IV ×2 (01:10→08:52)
[2017-08-23] MEDS: LEVEMIR (INSULIN DETEMIR) 1 UNITS/0.01ML SC ×3 (01:11→21:29)
[2017-08-23] MEDS: SODIUM CHLORIDE 0.9% INJ 10 ML SYR IV ×2 (01:19→08:48)
[2017-08-23] MEDS: IPRATROPIUM 0.5MG/ALBUTEROL 2.5MG INH SOL UD 3ML (DUONEB)(J7620) NEB ×5 (02:39→20:00)
[2017-08-23] MEDS: LEVOTHYROXINE 25MCG TABLET (0.025MG) PO (06:26)
[2017-08-23 06:46] LABS: HEMATOCRIT 30.2 % (36.0-47.0); HEMOGLOBIN 9.3 g/dl (12.0-15.5); MEAN CORPUSCULAR HEMOGLOBIN 27.2 pg (27.0-33.0); MEAN CORPUSCULAR HGB CONC 30.8 g/dl (32.0-36.5); MEAN CORPUSCULAR VOLUME 88.3 fl (80.0-96.0); PLATELET COUNT, AUTOMATED 286 10^3/uL (150-450); RED BLOOD COUNT 3.42 10^6/uL (4.00-5.40); RED CELL DISTRIBUTION WIDTH 16.4 % (11.5-14.5); WHITE BLOOD COUNT 9.2 10^3/uL (4.0-10.0)
[2017-08-23] MEDS: SYMBICORT 160/4.5MCG INHALER 6GM INH ×2 (07:03→20:08)
[2017-08-23 07:49] LABS: ANION GAP 9 MEQ/L (8-16); BLOOD UREA NITROGEN 14 MG/DL (7-18); CALCIUM LEVEL 8.9 MG/DL (8.5-10.1); CARBON DIOXIDE LEVEL 24 MEQ/L (21-32); CHLORIDE LEVEL 105 MEQ/L (98-107); CREATININE FOR GFR 0.77 MG/DL (0.55-1.30); GLOMERULAR FILTRATION RATE > 60.0 (>58); GLUCOSE, FASTING 323 MG/DL (70-100); MAGNESIUM LEVEL 1.8 MG/DL (1.8-2.4); POTASSIUM SERUM 4.5 MEQ/L (3.5-5.1); SODIUM LEVEL 138 MEQ/L (136-145)
[2017-08-23] MEDS: ENOXAPARIN 40 MG/0.4 ML SYRINGE (J1650) SC (08:48)
[2017-08-23] MEDS: SENOKOT S TAB PO ×2 (08:56→20:49)
[2017-08-23] MEDS: MELOXICAM (MOBIC) 7.5 MG TAB PO (08:56)
[2017-08-23] MEDS: PANTOPRAZOLE 40MG TAB (PROTONIX) PO (08:58)
[2017-08-23] MEDS: GEMFIBROZIL 600 MG TAB PO (08:59)
[2017-08-23] MEDS: BISACODYL 5 MG TAB PO (08:59)
[2017-08-23] MEDS: LISINOPRIL 10 MG TAB PO (09:02)
[2017-08-23 12:29] LABS: BEDSIDE GLUCOSE 331 MG/DL (70-105)
[2017-08-23 17:51] LABS: BEDSIDE GLUCOSE 344 MG/DL (70-105)
[2017-08-23 21:20] LABS: BEDSIDE GLUCOSE 248 MG/DL (70-105)
[2017-08-24] MEDS: LEVOTHYROXINE 25MCG TABLET (0.025MG) PO (05:56)
[2017-08-24] MEDS: SODIUM CHLORIDE 0.9% INJ 10 ML SYR IV ×2 (05:57→09:52)
[2017-08-24 06:15] LABS: HEMATOCRIT 29.6 % (36.0-47.0); MEAN CORPUSCULAR HEMOGLOBIN 27.1 pg (27.0-33.0); MEAN CORPUSCULAR HGB CONC 30.4 g/dl (32.0-36.5); MEAN CORPUSCULAR VOLUME 89.2 fl (80.0-96.0); PLATELET COUNT, AUTOMATED 265 10^3/uL (150-450); RED BLOOD COUNT 3.32 10^6/uL (4.00-5.40); RED CELL DISTRIBUTION WIDTH 16.2 % (11.5-14.5); WHITE BLOOD COUNT 12.2 10^3/uL (4.0-10.0)
[2017-08-24 06:37] LABS: ANION GAP 6 MEQ/L (8-16); BLOOD UREA NITROGEN 28 MG/DL (7-18); CALCIUM LEVEL 8.8 MG/DL (8.5-10.1); CARBON DIOXIDE LEVEL 29 MEQ/L (21-32); CHLORIDE LEVEL 107 MEQ/L (98-107); CREATININE FOR GFR 0.74 MG/DL (0.55-1.30); GLOMERULAR FILTRATION RATE > 60.0 (>58); GLUCOSE, FASTING 203 MG/DL (70-100); MAGNESIUM LEVEL 1.9 MG/DL (1.8-2.4); POTASSIUM SERUM 3.8 MEQ/L (3.5-5.1); SODIUM LEVEL 142 MEQ/L (136-145)
[2017-08-24] MEDS: prednisoLONE (PRELONE) 15MG/5ML SYRUP UDC PO (09:28)
[2017-08-24] MEDS: GEMFIBROZIL 600 MG TAB PO (09:30)
[2017-08-24] MEDS: HumaLOG INSULIN (NovoLOG) PER UNIT SC (09:30)
[2017-08-24] MEDS: BISACODYL 5 MG TAB PO (09:30)
[2017-08-24] MEDS: busPIRone 10 MG TAB PO (09:30)
[2017-08-24] MEDS: GABAPENTIN 300 MG CAP PO (09:30)
[2017-08-24] MEDS: LEVEMIR (INSULIN DETEMIR) 1 UNITS/0.01ML SC (09:30)
[2017-08-24] MEDS: MELOXICAM (MOBIC) 7.5 MG TAB PO (09:31)
[2017-08-24] MEDS: tiZANidine 4 MG TAB PO (09:31)
[2017-08-24] MEDS: NORCO, ANEXSIA 5/325MG TABLET (HYDROcodone/ACETAMINOPHEN) PO (09:31)
[2017-08-24] MEDS: PANTOPRAZOLE 40MG TAB (PROTONIX) PO (09:31)
[2017-08-24] MEDS: DULoxetine 30 MG CAP (CYMBALTA) PO (09:31)
[2017-08-24] MEDS: SENOKOT S TAB PO (09:31)
[2017-08-24] MEDS: VENLAFAXINE **XR** 37.5 MG CAPSULE PO (09:32)
[2017-08-24] MEDS: LISINOPRIL 10 MG TAB PO (09:34)
[2017-08-24] MEDS: ENOXAPARIN 40 MG/0.4 ML SYRINGE (J1650) SC (09:51)
[2017-08-25 08:54] LABS: VITAMIN B12 LEVEL 446 PG/ML (247-911)
[2017-08-25 08:55] LABS: FOLATE 14.7 NG/ML (>5.4)
== END 2017-08-24 10:25 | disposition home or self-care (01) | DRG 141 ==
LOC: M ED 15:19 → M ED INP 20:24 → M PED 23:16
DX: J45.901 Unspecified asthma with (acute) exacerbation (principal); E11.40 Type 2 diabetes mellitus with diabetic neuropathy, unspecified; E88.01 Alpha-1-antitrypsin deficiency; G43.909 Migraine, unspecified, not intractable, without status migrainosus; K21.9 Gastro-esophageal reflux disease without esophagitis; M79.7 Fibromyalgia; M54.9 Dorsalgia, unspecified; E66.9 Obesity, unspecified; F43.10 Post-traumatic stress disorder, unspecified; Z79.4 Long term (current) use of insulin; Z79.899 Other long term (current) drug therapy; Z88.8 Allergy status to other drugs, medicaments and biological substances; Z90.49 Acquired absence of other specified parts of digestive tract; Z87.891 Personal history of nicotine dependence; F41.9 Anxiety disorder, unspecified; F32.9 Major depressive disorder, single episode, unspecified; D50.9 Iron deficiency anemia, unspecified; Z68.36 Body mass index [BMI] 36.0-36.9, adult

== ENCOUNTER → 2017-08-22 | Outpatient (REF) | payer OTHER ==
[2017-08-22 11:03] LABS: HEMATOCRIT 34.3 % (36.0-47.0); HEMOGLOBIN 10.6 g/dl (12.0-15.5); MEAN CORPUSCULAR HEMOGLOBIN 27.2 pg (27.0-33.0); MEAN CORPUSCULAR HGB CONC 30.9 g/dl (32.0-36.5); MEAN CORPUSCULAR VOLUME 88.2 fl (80.0-96.0); PLATELET COUNT, AUTOMATED 326 10^3/uL (150-450); RED BLOOD COUNT 3.89 10^6/uL (4.00-5.40); RED CELL DISTRIBUTION WIDTH 16.5 % (11.5-14.5); WHITE BLOOD COUNT 10.4 10^3/uL (4.0-10.0)
[2017-08-22 11:19] LABS: FERRITIN 11 NG/ML (8-252); IRON (FE) 22 UG/DL (50-170); PERCENT SATURATION 4.9 % (13.2-45.0); TOTAL IRON BINDING CAPACITY 450 UG/DL (250-450)
[2017-08-22 12:08] LABS: MALB URINE SIEMENS 21.4 MG/L; MAU/CREAT RATIO 8.9 MCG/MG (0.0-30.0)
[2017-08-22 13:23] LABS: ESTIMATED AVERAGE GLUCOSE 220 MG/DL (60-110); HEMOGLOBIN A1c 9.3 %
[2017-08-26 00:10] LABS: A1A FOR PHENOTYPE 99 mg/dL (90-200); ALPHA-1-ANTITRYPSIN PHENOTYPE MZ (.)
== END ==
LOC: M LABDRAW1 09:14
DX: E88.01 Alpha-1-antitrypsin deficiency (principal); N91.2 Amenorrhea, unspecified; E11.9 Type 2 diabetes mellitus without complications

== ENCOUNTER 2017-09-06 10:05 | Inpatient (IN) | payer OTHER ==
[2017-09-06] MEDS: methylPREDNISolone INJ 125 MG/2 ML VIAL (J2930) IV (10:45)
[2017-09-06 10:46] LABS: HEMATOCRIT 35.1 % (36.0-47.0); HEMOGLOBIN 10.9 g/dl (12.0-15.5); MEAN CORPUSCULAR HGB CONC 31.1 g/dl (32.0-36.5); MEAN CORPUSCULAR VOLUME 86.9 fl (80.0-96.0); PLATELET COUNT, AUTOMATED 399 10^3/uL (150-450); RED BLOOD COUNT 4.04 10^6/uL (4.00-5.40); RED CELL DISTRIBUTION WIDTH 16.4 % (11.5-14.5)
[2017-09-06] MEDS: IPRATROPIUM 0.5MG/ALBUTEROL 2.5MG INH SOL UD 3ML (DUONEB)(J7620) NEB ×3 (10:49→11:21)
[2017-09-06 10:56] LABS: ABG BASE EXCESS 0.4 (-2.0-2.0); ABG HCO3 20.9 MEQ/L (22.0-26.0); ABG O2 SATURATION 98.2 % (95.0-99.0); ABG PARTIAL PRESSURE CO2 22.8 mmHg (35.0-45.0); ABG PARTIAL PRESSURE O2 111.5 mmHg (75.0-100.0); ABG STANDARD HCO3 24.8 MEQ/L (22.0-26.0); ABG TOTAL CO2 21.6 MEQ/L (22.0-29.0); ABG pH (ARTERIAL) 7.581 UNITS (7.350-7.450)
[2017-09-06 11:00] LABS: ADD MANUAL DIFFER YES; DIFF SLIDE NUMBER 112; INR 0.92; POSITIVE DIFF POS FLAG; PROTHROMBIN TIME 12.4 SECONDS (12.4-14.5); WHITE BLOOD COUNT 13.4 10^3/uL (4.0-10.0)
[2017-09-06 11:13] LABS: ALBUMIN 3.7 GM/DL (3.2-5.2); ALBUMIN/GLOBULIN RATIO 0.76 (1.00-1.93); ALKALINE PHOSPHATASE 178 U/L (45-117); ALT/SGPT 42 U/L (12-78); ANION GAP 12 MEQ/L (8-16); AST/SGOT 34 U/L (7-37); BILIRUBIN,DIRECT < 0.1 MG/DL (0.0-0.2); BILIRUBIN,TOTAL 0.2 MG/DL (0.2-1.0); BLOOD UREA NITROGEN 12 MG/DL (7-18); CALCIUM LEVEL 9.2 MG/DL (8.5-10.1); CARBON DIOXIDE LEVEL 25 MEQ/L (21-32); CHLORIDE LEVEL 100 MEQ/L (98-107); CPK CREATINE PHOSPHOKINASE 60 U/L (26-192); CREATININE FOR GFR 0.93 MG/DL (0.55-1.30); GLOMERULAR FILTRATION RATE > 60.0 (>58); GLUCOSE, FASTING 185 MG/DL (70-100); POTASSIUM SERUM 3.8 MEQ/L (3.5-5.1); SODIUM LEVEL 137 MEQ/L (136-145); TOTAL PROTEIN 8.6 GM/DL (6.4-8.2); TROPONIN I < 0.02 NG/ML (< 0.10)
[2017-09-06 11:18] LABS: CK-MB VALUE MASS < 1.0 NG/ML (<3.6); MB/CK RELATIVE INDEX 1.66 (< OR =4); NT-PRO BNP 12 PG/ML (<125)
[2017-09-06 11:19] LABS: LACTIC ACID SEPSIS PROTOCOL 3.9 MMOL/L (0.4-2.0)
[2017-09-06 11:29] LABS: ATYPICAL LYMPH 5 % (0-5); BASOPHILS 1 % (0-4); EOSINOPHILS 5 % (0-5); LYMPHOCYTES 44 % (16-52); MONOCYTES 8 % (0-8); NEUTROPHILS 37 % (35-75)
[2017-09-06 11:30] LABS: ANISOCYTOSIS 1+; PLATELET ESTIMATE NORMAL (NORMAL)
[2017-09-06] MEDS: NS 1,000 ML IV ×4 (12:20→23:49)
[2017-09-06] MEDS: ALBUTEROL SULFATE 2.5 MG/0.5 ML INH NEB SOLN NEB (12:58)
[2017-09-06] MEDS ORDERED: ISOVUE-370 76% 100ML VIAL (Q9967) As Ordered (15:16)
[2017-09-06] MEDS ORDERED: ACETAMINOPHEN TAB 650MG DOSE (2X325MG) PO (17:15)
[2017-09-06] MEDS ORDERED: IPRATROPIUM 0.5MG/ALBUTEROL 2.5MG INH SOL UD 3ML (DUONEB)(J7620) NEB ×3 (17:15→23:15)
[2017-09-06] MEDS ORDERED: BISACODYL 5 MG TAB PO (17:15)
[2017-09-06] MEDS: HumaLOG INSULIN (NovoLOG) PER UNIT SC ×2 (17:30→20:27)
[2017-09-06] MEDS ORDERED: GLUCAGON FOR INJ 1 MG VIAL (J1610) SC (17:45)
[2017-09-06] MEDS ORDERED: GLUCOSE 4 GM CHEW TABLET PO (17:45)
[2017-09-06] MEDS ORDERED: DEXTROSE 50% 50 ML SYRINGE IV (17:45)
[2017-09-06] MEDS: SODIUM CHLORIDE 0.9% 1000 ML IV (18:04)
[2017-09-06 20:11] LABS: BEDSIDE GLUCOSE 424 MG/DL (70-105)
[2017-09-06] MEDS: SYMBICORT 160/4.5MCG INHALER 6GM INH (20:20)
[2017-09-06] MEDS: traZODone 100 MG TAB PO (20:26)
[2017-09-06] MEDS: GABAPENTIN 300 MG CAP PO (20:26)
[2017-09-06] MEDS: MONTELUKAST 10 MG TAB PO (20:26)
[2017-09-06] MEDS: DULoxetine 30 MG CAP (CYMBALTA) PO (20:26)
[2017-09-06] MEDS: FAMOTIDINE 20 MG TAB PO (20:26)
[2017-09-06] MEDS: LEVEMIR (INSULIN DETEMIR) 1 UNITS/0.01ML SC (20:27)
[2017-09-06] MEDS: ARIPiprazole 10 MG TAB PO (21:43)
[2017-09-06] MEDS: VENLAFAXINE **XR** 37.5 MG CAPSULE PO (21:43)
[2017-09-06] MEDS: busPIRone 10 MG TAB PO (21:44)
[2017-09-06 22:50] LABS: LACTIC ACID SEPSIS PROTOCOL 4.2 MMOL/L (0.4-2.0)
[2017-09-07] MEDS: LEVOTHYROXINE 25MCG TABLET (0.025MG) PO (05:45)
[2017-09-07] MEDS: methylPREDNISolone INJ 40 MG/1 ML VIAL (J2920) IV ×2 (05:45→17:34)
[2017-09-07] MEDS: NS 1,000 ML IV (06:04)
[2017-09-07 06:29] LABS: MEAN CORPUSCULAR HEMOGLOBIN 27.4 pg (27.0-33.0); MEAN CORPUSCULAR HGB CONC 31.5 g/dl (32.0-36.5); MEAN CORPUSCULAR VOLUME 87.1 fl (80.0-96.0); RED CELL DISTRIBUTION WIDTH 16.7 % (11.5-14.5); WHITE BLOOD COUNT 9.1 10^3/uL (4.0-10.0)
[2017-09-07 06:42] LABS: HEMOGLOBIN 8.5 g/dl (12.0-15.5); PLATELET COUNT, AUTOMATED 290 10^3/uL (150-450)
[2017-09-07 06:55] LABS: ALBUMIN 2.7 GM/DL (3.2-5.2); ALBUMIN/GLOBULIN RATIO 0.71 (1.00-1.93); ALKALINE PHOSPHATASE 130 U/L (45-117); ALT/SGPT 29 U/L (12-78); ANION GAP 8 MEQ/L (8-16); AST/SGOT 12 U/L (7-37); BILIRUBIN,TOTAL 0.1 MG/DL (0.2-1.0); BLOOD UREA NITROGEN 16 MG/DL (7-18); CALCIUM LEVEL 8.3 MG/DL (8.5-10.1); CARBON DIOXIDE LEVEL 25 MEQ/L (21-32); CHLORIDE LEVEL 110 MEQ/L (98-107); CREATININE FOR GFR 0.66 MG/DL (0.55-1.30); GLOMERULAR FILTRATION RATE > 60.0 (>58); GLUCOSE, FASTING 209 MG/DL (70-100); MAGNESIUM LEVEL 1.8 MG/DL (1.8-2.4); POTASSIUM SERUM 3.6 MEQ/L (3.5-5.1); SODIUM LEVEL 143 MEQ/L (136-145); TOTAL PROTEIN 6.5 GM/DL (6.4-8.2)
[2017-09-07 06:55] LABS: LACTIC ACID SEPSIS PROTOCOL 1.7 MMOL/L (0.4-2.0)
[2017-09-07] MEDS: LEVEMIR (INSULIN DETEMIR) 1 UNITS/0.01ML SC ×2 (08:23→21:29)
[2017-09-07] MEDS: DULoxetine 30 MG CAP (CYMBALTA) PO ×2 (08:24→21:30)
[2017-09-07] MEDS: HumaLOG INSULIN (NovoLOG) PER UNIT SC ×4 (08:24→20:52)
[2017-09-07] MEDS: GABAPENTIN 300 MG CAP PO ×3 (08:24→21:30)
[2017-09-07] MEDS: hydroCHLOROthiazide 25 MG TAB PO (08:24)
[2017-09-07] MEDS: GEMFIBROZIL 600 MG TAB PO (08:24)
[2017-09-07] MEDS: PANTOPRAZOLE 40MG TAB (PROTONIX) PO (08:25)
[2017-09-07] MEDS: LISINOPRIL 10 MG TAB PO (08:25)
[2017-09-07] MEDS: DOCUSATE SODIUM 100 MG CAP PO (08:25)
[2017-09-07] MEDS: FAMOTIDINE 20 MG TAB PO ×2 (08:25→21:30)
[2017-09-07] MEDS: ENOXAPARIN 40 MG/0.4 ML SYRINGE (J1650) SC (08:26)
[2017-09-07] MEDS: SYMBICORT 160/4.5MCG INHALER 6GM INH ×2 (09:33→21:25)
[2017-09-07] MEDS: VENLAFAXINE **XR** 37.5 MG CAPSULE PO ×2 (09:41→21:30)
[2017-09-07] MEDS: busPIRone 10 MG TAB PO ×3 (09:41→21:30)
[2017-09-07] MEDS: MELOXICAM (MOBIC) 7.5 MG TAB PO (09:41)
[2017-09-07 11:39] LABS: BEDSIDE GLUCOSE 326 MG/DL (70-105)
[2017-09-07] MEDS: FERROUS GLUCONATE 324 MG TAB PO ×2 (12:18→21:30)
[2017-09-07] MEDS: tiZANidine 4 MG TAB PO ×2 (12:56→21:30)
[2017-09-07 16:27] LABS: BEDSIDE GLUCOSE 430 MG/DL (70-105)
[2017-09-07 20:34] LABS: BEDSIDE GLUCOSE 170 MG/DL (70-105)
[2017-09-07] MEDS: ARIPiprazole 10 MG TAB PO (21:29)
[2017-09-07] MEDS: traZODone 100 MG TAB PO (21:30)
[2017-09-07] MEDS: MONTELUKAST 10 MG TAB PO (21:30)
[2017-09-07] MEDS: NORCO, ANEXSIA 5/325MG TABLET (HYDROcodone/ACETAMINOPHEN) PO (21:58)
[2017-09-08] MEDS: tiZANidine 4 MG TAB PO ×2 (04:30→21:09)
[2017-09-08] MEDS: NORCO, ANEXSIA 5/325MG TABLET (HYDROcodone/ACETAMINOPHEN) PO ×3 (04:31→18:49)
[2017-09-08] MEDS: methylPREDNISolone INJ 40 MG/1 ML VIAL (J2920) IV ×2 (05:10→17:13)
[2017-09-08] MEDS: LEVOTHYROXINE 25MCG TABLET (0.025MG) PO (05:10)
[2017-09-08 07:06] LABS: HEMATOCRIT 28.9 % (36.0-47.0); HEMOGLOBIN 9.1 g/dl (12.0-15.5); MEAN CORPUSCULAR HEMOGLOBIN 27.4 pg (27.0-33.0); MEAN CORPUSCULAR HGB CONC 31.5 g/dl (32.0-36.5); PLATELET COUNT, AUTOMATED 317 10^3/uL (150-450); RED BLOOD COUNT 3.32 10^6/uL (4.00-5.40); RED CELL DISTRIBUTION WIDTH 16.4 % (11.5-14.5); WHITE BLOOD COUNT 10.7 10^3/uL (4.0-10.0)
[2017-09-08 07:30] LABS: ALBUMIN 3.2 GM/DL (3.2-5.2); ALKALINE PHOSPHATASE 147 U/L (45-117); ALT/SGPT 30 U/L (12-78); ANION GAP 5 MEQ/L (8-16); AST/SGOT 15 U/L (7-37); BILIRUBIN,TOTAL 0.2 MG/DL (0.2-1.0); BLOOD UREA NITROGEN 23 MG/DL (7-18); CALCIUM LEVEL 9.1 MG/DL (8.5-10.1); CARBON DIOXIDE LEVEL 28 MEQ/L (21-32); CHLORIDE LEVEL 105 MEQ/L (98-107); GLOMERULAR FILTRATION RATE > 60.0 (>58); GLUCOSE, FASTING 219 MG/DL (70-100); MAGNESIUM LEVEL 1.9 MG/DL (1.8-2.4); POTASSIUM SERUM 4.1 MEQ/L (3.5-5.1); SODIUM LEVEL 138 MEQ/L (136-145); TOTAL PROTEIN 7.2 GM/DL (6.4-8.2)
[2017-09-08] MEDS: HumaLOG INSULIN (NovoLOG) PER UNIT SC ×4 (07:30→21:00)
[2017-09-08] MEDS: LEVEMIR (INSULIN DETEMIR) 1 UNITS/0.01ML SC ×2 (08:15→21:06)
[2017-09-08] MEDS: GABAPENTIN 300 MG CAP PO ×3 (08:15→21:06)
[2017-09-08] MEDS: hydroCHLOROthiazide 25 MG TAB PO (08:15)
[2017-09-08] MEDS: VENLAFAXINE **XR** 37.5 MG CAPSULE PO ×2 (08:15→21:05)
[2017-09-08] MEDS: GEMFIBROZIL 600 MG TAB PO (08:15)
[2017-09-08] MEDS: DOCUSATE SODIUM 100 MG CAP PO (08:15)
[2017-09-08] MEDS: busPIRone 10 MG TAB PO ×3 (08:15→21:06)
[2017-09-08] MEDS: LISINOPRIL 10 MG TAB PO (08:15)
[2017-09-08] MEDS: FAMOTIDINE 20 MG TAB PO ×2 (08:15→21:05)
[2017-09-08] MEDS: FERROUS GLUCONATE 324 MG TAB PO ×2 (08:15→21:05)
[2017-09-08] MEDS: PANTOPRAZOLE 40MG TAB (PROTONIX) PO (08:15)
[2017-09-08] MEDS: MELOXICAM (MOBIC) 7.5 MG TAB PO (08:15)
[2017-09-08] MEDS: DULoxetine 30 MG CAP (CYMBALTA) PO ×2 (08:15→21:06)
[2017-09-08] MEDS: ENOXAPARIN 40 MG/0.4 ML SYRINGE (J1650) SC (08:15)
[2017-09-08] MEDS: SYMBICORT 160/4.5MCG INHALER 6GM INH ×2 (09:00→21:27)
[2017-09-08 12:57] LABS: BEDSIDE GLUCOSE 291 MG/DL (70-105)
[2017-09-08] MEDS: DICLOFENAC EPOLAMINE 1.3 % PATCH TOP (14:08)
[2017-09-08 17:05] LABS: BEDSIDE GLUCOSE 273 MG/DL (70-105)
[2017-09-08 20:58] LABS: BEDSIDE GLUCOSE 245 MG/DL (70-105)
[2017-09-08] MEDS: traZODone 100 MG TAB PO (21:05)
[2017-09-08] MEDS: ARIPiprazole 10 MG TAB PO (21:06)
[2017-09-08] MEDS: MONTELUKAST 10 MG TAB PO (21:06)
[2017-09-09] MEDS: DICLOFENAC EPOLAMINE 1.3 % PATCH TOP (03:08)
[2017-09-09] MEDS: NORCO, ANEXSIA 5/325MG TABLET (HYDROcodone/ACETAMINOPHEN) PO ×2 (03:09→12:29)
[2017-09-09] MEDS: LEVOTHYROXINE 25MCG TABLET (0.025MG) PO (05:45)
[2017-09-09] MEDS: methylPREDNISolone INJ 40 MG/1 ML VIAL (J2920) IV (05:45)
[2017-09-09 07:16] LABS: HEMATOCRIT 31.7 % (36.0-47.0); MEAN CORPUSCULAR HEMOGLOBIN 27.3 pg (27.0-33.0); MEAN CORPUSCULAR HGB CONC 31.5 g/dl (32.0-36.5); MEAN CORPUSCULAR VOLUME 86.6 fl (80.0-96.0); PLATELET COUNT, AUTOMATED 342 10^3/uL (150-450); RED BLOOD COUNT 3.66 10^6/uL (4.00-5.40); RED CELL DISTRIBUTION WIDTH 16.1 % (11.5-14.5); WHITE BLOOD COUNT 12.1 10^3/uL (4.0-10.0)
[2017-09-09] MEDS: SYMBICORT 160/4.5MCG INHALER 6GM INH (07:22)
[2017-09-09 07:43] LABS: ALBUMIN 3.4 GM/DL (3.2-5.2); ALBUMIN/GLOBULIN RATIO 0.77 (1.00-1.93); ALKALINE PHOSPHATASE 153 U/L (45-117); ALT/SGPT 34 U/L (12-78); ANION GAP 10 MEQ/L (8-16); AST/SGOT 11 U/L (7-37); BILIRUBIN,TOTAL < 0.1 MG/DL (0.2-1.0); BLOOD UREA NITROGEN 29 MG/DL (7-18); CALCIUM LEVEL 9.3 MG/DL (8.5-10.1); CARBON DIOXIDE LEVEL 29 MEQ/L (21-32); CHLORIDE LEVEL 103 MEQ/L (98-107); CREATININE FOR GFR 0.79 MG/DL (0.55-1.30); GLOMERULAR FILTRATION RATE > 60.0 (>58); GLUCOSE, FASTING 166 MG/DL (70-100); MAGNESIUM LEVEL 1.9 MG/DL (1.8-2.4); POTASSIUM SERUM 3.9 MEQ/L (3.5-5.1); SODIUM LEVEL 142 MEQ/L (136-145); TOTAL PROTEIN 7.8 GM/DL (6.4-8.2)
[2017-09-09] MEDS: HumaLOG INSULIN (NovoLOG) PER UNIT SC ×2 (08:28→12:28)
[2017-09-09] MEDS: LEVEMIR (INSULIN DETEMIR) 1 UNITS/0.01ML SC (08:29)
[2017-09-09] MEDS: FAMOTIDINE 20 MG TAB PO (08:29)
[2017-09-09] MEDS: busPIRone 10 MG TAB PO (08:29)
[2017-09-09] MEDS: DOCUSATE SODIUM 100 MG CAP PO (08:29)
[2017-09-09] MEDS: DULoxetine 30 MG CAP (CYMBALTA) PO (08:29)
[2017-09-09] MEDS: ENOXAPARIN 40 MG/0.4 ML SYRINGE (J1650) SC (08:29)
[2017-09-09] MEDS: GABAPENTIN 300 MG CAP PO (08:30)
[2017-09-09] MEDS: FERROUS GLUCONATE 324 MG TAB PO (08:30)
[2017-09-09] MEDS: PANTOPRAZOLE 40MG TAB (PROTONIX) PO (08:30)
[2017-09-09] MEDS: MELOXICAM (MOBIC) 7.5 MG TAB PO (08:30)
[2017-09-09] MEDS: GEMFIBROZIL 600 MG TAB PO (08:30)
[2017-09-09] MEDS: VENLAFAXINE **XR** 37.5 MG CAPSULE PO (08:30)
[2017-09-09] MEDS: hydroCHLOROthiazide 25 MG TAB PO (08:30)
[2017-09-09] MEDS: LISINOPRIL 10 MG TAB PO (08:30)
[2017-09-09 12:18] LABS: BEDSIDE GLUCOSE 270 MG/DL (70-105)
[2017-09-10 00:06] LABS: CYTOMEGALOVIRUS IgG ANTIBODY >10.00 U/mL (0.00-0.59); CYTOMEGALOVIRUS IgM ANTIBODY <30.0 AU/mL (0.0-29.9); EBV VIRAL CAPSID AG IgG >600.0 U/mL (0.0-17.9)
[2017-09-10 00:06] LABS: EBV VIRAL CAPSID AG IgM <36.0 U/mL (0.0-35.9)
== END 2017-09-09 12:40 | disposition home or self-care (01) | DRG 720 ==
LOC: M MS5PR 09-07 15:03 → M ED 10:05 → M ED INP 17:22 → M PCU 18:41
DX: A41.9 Sepsis, unspecified organism (principal); J96.21 Acute and chronic respiratory failure with hypoxia; E87.2 Acidosis; E88.01 Alpha-1-antitrypsin deficiency; E11.40 Type 2 diabetes mellitus with diabetic neuropathy, unspecified; J45.901 Unspecified asthma with (acute) exacerbation; E66.9 Obesity, unspecified; I10 Essential (primary) hypertension; B34.8 Other viral infections of unspecified site; D72.829 Elevated white blood cell count, unspecified; M54.9 Dorsalgia, unspecified; F41.9 Anxiety disorder, unspecified; T38.0X5A Adverse effect of glucocorticoids and synthetic analogues, initial encounter; F32.9 Major depressive disorder, single episode, unspecified; F43.10 Post-traumatic stress disorder, unspecified; E03.9 Hypothyroidism, unspecified; M79.7 Fibromyalgia; E78.5 Hyperlipidemia, unspecified; K21.9 Gastro-esophageal reflux disease without esophagitis; G43.909 Migraine, unspecified, not intractable, without status migrainosus; D50.9 Iron deficiency anemia, unspecified; Z87.891 Personal history of nicotine dependence; Z68.37 Body mass index [BMI] 37.0-37.9, adult; Z90.49 Acquired absence of other specified parts of digestive tract; Z79.4 Long term (current) use of insulin; Z79.899 Other long term (current) drug therapy; Z88.8 Allergy status to other drugs, medicaments and biological substances

== ENCOUNTER → 2017-09-11 | Outpatient (CLI) | payer OTHER | LOC: M SLEEP 19:30 | DX: G47.33 Obstructive sleep apnea (adult) (pediatric) (principal) | CPT/HCPCS: 95810 ==

== ENCOUNTER 2017-09-14 10:03 | Inpatient (IN) | payer OTHER ==
[2017-09-14] MEDS: IPRATROPIUM 0.5MG/ALBUTEROL 2.5MG INH SOL UD 3ML (DUONEB)(J7620) NEB ×4 (11:11→23:31)
[2017-09-14] MEDS: methylPREDNISolone INJ 125 MG/2 ML VIAL (J2930) IV ×2 (11:18→16:59)
[2017-09-14 11:23] LABS: BASO % 0.2 % (0.0-1.0); EOS # 0.3 10^3/uL (0.0-0.50); EOS % 1.7 % (0.0-3.0); HEMOGLOBIN 10.2 g/dl (12.0-15.5); IMMATURE GRANULOCYTE % 0.7 % (0-3.0); LYMPH % 15.1 % (24.0-44.0); MEAN CORPUSCULAR HEMOGLOBIN 27.3 pg (27.0-33.0); MEAN CORPUSCULAR HGB CONC 30.9 g/dl (32.0-36.5); MEAN CORPUSCULAR VOLUME 88.5 fl (80.0-96.0); MONO # 1.8 10^3/uL (0.0-0.8); MONO % 8.9 % (0.0-5.0); NEUTROPHILS # 14.5 10^3/uL (1.8-7.7); NEUTROPHILS % 73.4 % (36.0-66.0); PLATELET COUNT, AUTOMATED 325 10^3/uL (150-450); RED BLOOD COUNT 3.73 10^6/uL (4.00-5.40); RED CELL DISTRIBUTION WIDTH 17.1 % (11.5-14.5); WHITE BLOOD COUNT 19.8 10^3/uL (4.0-10.0)
[2017-09-14 11:26] LABS: ABG BASE EXCESS 4.5 (-2.0-2.0); ABG HCO3 27.7 MEQ/L (22.0-26.0); ABG O2 SATURATION 96.5 % (95.0-99.0); ABG PARTIAL PRESSURE CO2 36.2 mmHg (35.0-45.0); ABG PARTIAL PRESSURE O2 81.1 mmHg (75.0-100.0); ABG STANDARD HCO3 28.5 MEQ/L (22.0-26.0); ABG TOTAL CO2 28.8 MEQ/L (22.0-29.0); ABG pH (ARTERIAL) 7.502 UNITS (7.350-7.450)
[2017-09-14 11:34] LABS: INR 0.99; PROTHROMBIN TIME 13.2 SECONDS (12.1-14.4)
[2017-09-14 11:51] LABS: ANION GAP 10 MEQ/L (8-16); BLOOD UREA NITROGEN 11 MG/DL (7-18); CALCIUM LEVEL 8.4 MG/DL (8.5-10.1); CARBON DIOXIDE LEVEL 29 MEQ/L (21-32); CHLORIDE LEVEL 96 MEQ/L (98-107); CPK CREATINE PHOSPHOKINASE 31 U/L (26-192); CREATININE FOR GFR 0.77 MG/DL (0.55-1.30); GLOMERULAR FILTRATION RATE > 60.0 (>58); GLUCOSE, FASTING 295 MG/DL (70-100); POTASSIUM SERUM 3.5 MEQ/L (3.5-5.1); SODIUM LEVEL 135 MEQ/L (136-145); TROPONIN I < 0.02 NG/ML (< 0.10)
[2017-09-14 11:57] LABS: CK-MB VALUE MASS < 1.0 NG/ML (<3.6); MB/CK RELATIVE INDEX 3.22 (< OR =4); NT-PRO BNP 11 PG/ML (<125); THYROID STIMULATING HORMONE 0.429 uIU/ML (0.358-3.740)
[2017-09-14] MEDS: ACETAMINOPHEN TAB 650MG DOSE (2X325MG) PO (12:54)
[2017-09-14 13:05] LABS: LACTIC ACID SEPSIS PROTOCOL 2.8 MMOL/L (0.4-2.0)
[2017-09-14 13:15] LABS: KETONE, URINE AUTO RFX 2+ mg/dL (NEGATIVE); LEUKOCYTE ESTERASE UR AUTO RFX NEGATIVE (NEGATIVE); NITRITE, URINE AUTO RFX NEGATIVE (NEGATIVE); RBC, URINE AUTO RFX 1 /HPF (0-3); SPECIFIC GRAVITY UR AUTO RFX 1.032 (1.002-1.035); SQUAM EPITHELIAL CELL UR AURFX 4 /HPF (0-6); WBC, URINE AUTO RFX 0 /HPF (0-3)
[2017-09-14] MEDS ORDERED: ISOVUE-370 76% 100ML VIAL (Q9967) As Ordered (13:49)
[2017-09-14] MEDS: ONDANSETRON 4MG/2ML VIAL (J2405) IV (14:37)
[2017-09-14] MEDS ORDERED: POLYVINYL ALCOHOL OPHTH SOLN 15 ML(LIQUITEARS) OU (15:00)
[2017-09-14] MEDS ORDERED: DEXTROSE 50% 50 ML SYRINGE IV (15:00)
[2017-09-14] MEDS ORDERED: GLUCAGON FOR INJ 1 MG VIAL (J1610) SC (15:00)
[2017-09-14] MEDS ORDERED: AZITHROMYCIN INJ 500 MG, VIAL MATE ADAPTER 1 EACH in D5W 250 ML IV (15:00)
[2017-09-14] MEDS ORDERED: SUMAtriptan SUCCINATE 25 MG TAB PO (15:00)
[2017-09-14] MEDS ORDERED: GLUCOSE 4 GM CHEW TABLET PO (15:00)
[2017-09-14] MEDS ORDERED: ONDANSETRON 4 MG TAB (S0181) PO (15:00)
[2017-09-14] MEDS ORDERED: DICLOFENAC EPOLAMINE 1.3 % PATCH TOP (15:00)
[2017-09-14] MEDS: SODIUM CHLORIDE 0.9% 1000 ML IV (15:00)
[2017-09-14] MEDS ORDERED: ACETAMINOPHEN TAB 650MG DOSE (2X325MG) PO (15:00)
[2017-09-14] MEDS: MEROPENEM INJ 1 GM in APPROPRIATE DILUENT 1 EA IV (16:58)
[2017-09-14] MEDS: LISINOPRIL 10 MG TAB PO (16:59)
[2017-09-14] MEDS: DOCUSATE SODIUM 100 MG CAP PO (17:00)
[2017-09-14] MEDS: PANTOPRAZOLE 40MG TAB (PROTONIX) PO (17:00)
[2017-09-14] MEDS: MELOXICAM (MOBIC) 7.5 MG TAB PO (17:00)
[2017-09-14] MEDS: busPIRone 10 MG TAB PO ×2 (17:00→20:14)
[2017-09-14] MEDS: hydroCHLOROthiazide 25 MG TAB PO (17:01)
[2017-09-14 17:07] LABS: BEDSIDE GLUCOSE 512 MG/DL (70-105)
[2017-09-14 17:09] LABS: BEDSIDE GLUCOSE 495 MG/DL (70-105)
[2017-09-14 17:28] LABS: BEDSIDE GLUCOSE CONFIRMATION 481 MG/DL (LESS THAN 200)
[2017-09-14] MEDS: HumaLOG INSULIN (NovoLOG) PER UNIT SC ×2 (17:41→22:11)
[2017-09-14] MEDS: GABAPENTIN 300 MG CAP PO (17:42)
[2017-09-14] MEDS: LEVEMIR (INSULIN DETEMIR) 1 UNITS/0.01ML SC (18:37)
[2017-09-14] MEDS: DULoxetine 30 MG CAP (CYMBALTA) PO (20:13)
[2017-09-14] MEDS: traZODone 100 MG TAB PO (20:13)
[2017-09-14] MEDS: NS 1,000 ML IV (20:13)
[2017-09-14] MEDS: FAMOTIDINE 20 MG TAB PO (20:14)
[2017-09-14] MEDS: FERROUS GLUCONATE 324 MG TAB PO (20:14)
[2017-09-14] MEDS: VENLAFAXINE **XR** 37.5 MG CAPSULE PO (20:14)
[2017-09-14] MEDS: ARIPiprazole 10 MG TAB PO (20:14)
[2017-09-14] MEDS: MONTELUKAST 10 MG TAB PO (20:14)
[2017-09-14] MEDS: NORCO, ANEXSIA 5/325MG TABLET (HYDROcodone/ACETAMINOPHEN) PO (20:25)
[2017-09-14 21:03] LABS: BEDSIDE GLUCOSE 486 MG/DL (70-105)
[2017-09-14] MEDS: SYMBICORT 160/4.5MCG INHALER 6GM INH (21:19)
[2017-09-15] MEDS: MEROPENEM INJ 1 GM in APPROPRIATE DILUENT 1 EA IV ×3 (00:27→16:07)
[2017-09-15 01:10] LABS: BEDSIDE GLUCOSE 338 MG/DL (70-105)
[2017-09-15] MEDS: HumaLOG INSULIN (NovoLOG) PER UNIT SC ×5 (01:32→21:05)
[2017-09-15 05:05] LABS: BEDSIDE GLUCOSE 240 MG/DL (70-105)
[2017-09-15] MEDS: methylPREDNISolone INJ 125 MG/2 ML VIAL (J2930) IV (05:21)
[2017-09-15] MEDS: LEVOTHYROXINE 25MCG TABLET (0.025MG) PO (05:21)
[2017-09-15 05:39] LABS: HEMATOCRIT 27.4 % (36.0-47.0); HEMOGLOBIN 8.5 g/dl (12.0-15.5); MEAN CORPUSCULAR HEMOGLOBIN 27.3 pg (27.0-33.0); MEAN CORPUSCULAR VOLUME 88.1 fl (80.0-96.0); PLATELET COUNT, AUTOMATED 301 10^3/uL (150-450); RED BLOOD COUNT 3.11 10^6/uL (4.00-5.40); RED CELL DISTRIBUTION WIDTH 17.4 % (11.5-14.5)
[2017-09-15 06:00] LABS: ANION GAP 8 MEQ/L (8-16); BLOOD UREA NITROGEN 13 MG/DL (7-18); CALCIUM LEVEL 8.1 MG/DL (8.5-10.1); CARBON DIOXIDE LEVEL 28 MEQ/L (21-32); CHLORIDE LEVEL 103 MEQ/L (98-107); CREATININE FOR GFR 0.56 MG/DL (0.55-1.30); GLOMERULAR FILTRATION RATE > 60.0 (>58); GLUCOSE, FASTING 267 MG/DL (70-100); POTASSIUM SERUM 3.7 MEQ/L (3.5-5.1); SODIUM LEVEL 139 MEQ/L (136-145)
[2017-09-15] MEDS: IPRATROPIUM 0.5MG/ALBUTEROL 2.5MG INH SOL UD 3ML (DUONEB)(J7620) NEB ×3 (08:00→22:04)
[2017-09-15] MEDS: SYMBICORT 160/4.5MCG INHALER 6GM INH ×2 (08:16→22:04)
[2017-09-15 08:33] LABS: BEDSIDE GLUCOSE 292 MG/DL (70-105)
[2017-09-15] MEDS: hydroCHLOROthiazide 25 MG TAB PO (08:59)
[2017-09-15] MEDS: MELOXICAM (MOBIC) 7.5 MG TAB PO (08:59)
[2017-09-15] MEDS: LISINOPRIL 10 MG TAB PO (09:00)
[2017-09-15] MEDS: DULoxetine 30 MG CAP (CYMBALTA) PO ×2 (09:00→21:03)
[2017-09-15] MEDS: GABAPENTIN 300 MG CAP PO ×3 (09:00→17:42)
[2017-09-15] MEDS: DOCUSATE SODIUM 100 MG CAP PO (09:00)
[2017-09-15] MEDS: PANTOPRAZOLE 40MG TAB (PROTONIX) PO (09:00)
[2017-09-15] MEDS: busPIRone 10 MG TAB PO ×3 (09:01→21:02)
[2017-09-15] MEDS: FERROUS GLUCONATE 324 MG TAB PO ×2 (09:02→21:03)
[2017-09-15] MEDS: LEVEMIR (INSULIN DETEMIR) 1 UNITS/0.01ML SC ×3 (09:02→21:07)
[2017-09-15] MEDS: VENLAFAXINE **XR** 37.5 MG CAPSULE PO ×2 (09:02→21:02)
[2017-09-15] MEDS: ENOXAPARIN 40 MG/0.4 ML SYRINGE (J1650) SC (09:03)
[2017-09-15] MEDS: SODIUM CHLORIDE 0.9% INJ 10 ML SYR IV ×2 (09:04→21:10)
[2017-09-15 11:32] LABS: BEDSIDE GLUCOSE 369 MG/DL (70-105)
[2017-09-15] MEDS: methylPREDNISolone INJ 40 MG/1 ML VIAL (J2920) IV ×2 (12:13→21:04)
[2017-09-15] MEDS: NORCO, ANEXSIA 5/325MG TABLET (HYDROcodone/ACETAMINOPHEN) PO ×2 (12:14→21:39)
[2017-09-15 16:42] LABS: BEDSIDE GLUCOSE 481 MG/DL (70-105)
[2017-09-15 19:56] LABS: BEDSIDE GLUCOSE 418 MG/DL (70-105)
[2017-09-15] MEDS: FAMOTIDINE 20 MG TAB PO (21:02)
[2017-09-15] MEDS: ARIPiprazole 10 MG TAB PO (21:02)
[2017-09-15] MEDS: MONTELUKAST 10 MG TAB PO (21:03)
[2017-09-15] MEDS: traZODone 100 MG TAB PO (21:03)
[2017-09-16] MEDS: MEROPENEM INJ 1 GM in APPROPRIATE DILUENT 1 EA IV ×2 (00:48→08:15)
[2017-09-16] MEDS: SODIUM CHLORIDE 0.9% INJ 10 ML SYR IV ×3 (01:35→08:13)
[2017-09-16] MEDS: methylPREDNISolone INJ 40 MG/1 ML VIAL (J2920) IV ×3 (05:34→21:07)
[2017-09-16] MEDS: NORCO, ANEXSIA 5/325MG TABLET (HYDROcodone/ACETAMINOPHEN) PO ×2 (05:38→21:06)
[2017-09-16] MEDS: LEVOTHYROXINE 25MCG TABLET (0.025MG) PO (05:38)
[2017-09-16 05:47] LABS: HEMOGLOBIN 8.6 g/dl (12.0-15.5); MEAN CORPUSCULAR HEMOGLOBIN 27.4 pg (27.0-33.0); MEAN CORPUSCULAR HGB CONC 30.7 g/dl (32.0-36.5); MEAN CORPUSCULAR VOLUME 89.2 fl (80.0-96.0); PLATELET COUNT, AUTOMATED 314 10^3/uL (150-450); RED BLOOD COUNT 3.14 10^6/uL (4.00-5.40); RED CELL DISTRIBUTION WIDTH 17.7 % (11.5-14.5); WHITE BLOOD COUNT 13.4 10^3/uL (4.0-10.0)
[2017-09-16 06:07] LABS: ANION GAP 8 MEQ/L (8-16); BLOOD UREA NITROGEN 20 MG/DL (7-18); CALCIUM LEVEL 8.6 MG/DL (8.5-10.1); CARBON DIOXIDE LEVEL 28 MEQ/L (21-32); CHLORIDE LEVEL 104 MEQ/L (98-107); GLOMERULAR FILTRATION RATE > 60.0 (>58); GLUCOSE, FASTING 373 MG/DL (70-100); POTASSIUM SERUM 4.2 MEQ/L (3.5-5.1); SODIUM LEVEL 140 MEQ/L (136-145)
[2017-09-16] MEDS: IPRATROPIUM 0.5MG/ALBUTEROL 2.5MG INH SOL UD 3ML (DUONEB)(J7620) NEB ×4 (08:00→22:50)
[2017-09-16] MEDS: PANTOPRAZOLE 40MG TAB (PROTONIX) PO (08:11)
[2017-09-16] MEDS: busPIRone 10 MG TAB PO ×3 (08:11→21:06)
[2017-09-16] MEDS: HumaLOG INSULIN (NovoLOG) PER UNIT SC ×4 (08:11→21:07)
[2017-09-16] MEDS: GABAPENTIN 300 MG CAP PO ×3 (08:11→17:34)
[2017-09-16] MEDS: DULoxetine 30 MG CAP (CYMBALTA) PO ×2 (08:11→21:06)
[2017-09-16] MEDS: DOCUSATE SODIUM 100 MG CAP PO (08:12)
[2017-09-16] MEDS: hydroCHLOROthiazide 25 MG TAB PO (08:12)
[2017-09-16] MEDS: LISINOPRIL 10 MG TAB PO (08:12)
[2017-09-16] MEDS: MELOXICAM (MOBIC) 7.5 MG TAB PO (08:12)
[2017-09-16] MEDS: VENLAFAXINE **XR** 37.5 MG CAPSULE PO ×2 (08:12→21:06)
[2017-09-16] MEDS: FERROUS GLUCONATE 324 MG TAB PO ×2 (08:12→21:07)
[2017-09-16] MEDS: ENOXAPARIN 40 MG/0.4 ML SYRINGE (J1650) SC (08:13)
[2017-09-16] MEDS: LEVEMIR (INSULIN DETEMIR) 1 UNITS/0.01ML SC ×2 (08:14→21:08)
[2017-09-16] MEDS: SYMBICORT 160/4.5MCG INHALER 6GM INH ×2 (08:21→22:50)
[2017-09-16] MEDS: DEXTROMETHORPHAN 60MG/10ML SUSP 90ML BTL(DELSYM) PO ×2 (09:45→21:54)
[2017-09-16] MEDS: guaiFENesin ER 600 MG TAB PO ×2 (09:45→21:07)
[2017-09-16] MEDS: LevoFLOXacin 500 MG TABLET PO (10:49)
[2017-09-16 11:28] LABS: BEDSIDE GLUCOSE 388 MG/DL (70-105)
[2017-09-16 16:35] LABS: BEDSIDE GLUCOSE 325 MG/DL (70-105)
[2017-09-16 20:06] LABS: BEDSIDE GLUCOSE 361 MG/DL (70-105)
[2017-09-16] MEDS: FAMOTIDINE 20 MG TAB PO (21:06)
[2017-09-16] MEDS: MONTELUKAST 10 MG TAB PO (21:07)
[2017-09-16] MEDS: ARIPiprazole 10 MG TAB PO (21:07)
[2017-09-16] MEDS: traZODone 100 MG TAB PO (21:07)
[2017-09-17] MEDS: LEVOTHYROXINE 25MCG TABLET (0.025MG) PO (05:37)
[2017-09-17] MEDS: SODIUM CHLORIDE 0.9% INJ 10 ML SYR IV ×2 (05:37→08:02)
[2017-09-17] MEDS: methylPREDNISolone INJ 40 MG/1 ML VIAL (J2920) IV (05:37)
[2017-09-17] MEDS: LevoFLOXacin 500 MG TABLET PO (05:37)
[2017-09-17 05:53] LABS: HEMATOCRIT 29.2 % (36.0-47.0); HEMOGLOBIN 9.2 g/dl (12.0-15.5); MEAN CORPUSCULAR HEMOGLOBIN 28.2 pg (27.0-33.0); MEAN CORPUSCULAR HGB CONC 31.5 g/dl (32.0-36.5); MEAN CORPUSCULAR VOLUME 89.6 fl (80.0-96.0); PLATELET COUNT, AUTOMATED 318 10^3/uL (150-450); RED BLOOD COUNT 3.26 10^6/uL (4.00-5.40); RED CELL DISTRIBUTION WIDTH 17.8 % (11.5-14.5); WHITE BLOOD COUNT 11.7 10^3/uL (4.0-10.0)
[2017-09-17 06:21] LABS: ANION GAP 8 MEQ/L (8-16); BLOOD UREA NITROGEN 24 MG/DL (7-18); CALCIUM LEVEL 8.5 MG/DL (8.5-10.1); CARBON DIOXIDE LEVEL 29 MEQ/L (21-32); CHLORIDE LEVEL 103 MEQ/L (98-107); CREATININE FOR GFR 0.68 MG/DL (0.55-1.30); GLOMERULAR FILTRATION RATE > 60.0 (>58); GLUCOSE, FASTING 334 MG/DL (70-100); POTASSIUM SERUM 4.3 MEQ/L (3.5-5.1); SODIUM LEVEL 140 MEQ/L (136-145)
[2017-09-17] MEDS: HumaLOG INSULIN (NovoLOG) PER UNIT SC ×4 (07:59→20:52)
[2017-09-17] MEDS: VENLAFAXINE **XR** 37.5 MG CAPSULE PO ×2 (08:00→20:50)
[2017-09-17] MEDS: LEVEMIR (INSULIN DETEMIR) 1 UNITS/0.01ML SC ×2 (08:00→20:51)
[2017-09-17] MEDS: guaiFENesin ER 600 MG TAB PO ×2 (08:00→20:50)
[2017-09-17] MEDS: MELOXICAM (MOBIC) 7.5 MG TAB PO (08:00)
[2017-09-17] MEDS: DOCUSATE SODIUM 100 MG CAP PO (08:00)
[2017-09-17] MEDS: FERROUS GLUCONATE 324 MG TAB PO ×2 (08:00→20:50)
[2017-09-17] MEDS: hydroCHLOROthiazide 25 MG TAB PO (08:00)
[2017-09-17] MEDS: DULoxetine 30 MG CAP (CYMBALTA) PO ×2 (08:00→20:50)
[2017-09-17] MEDS: IPRATROPIUM 0.5MG/ALBUTEROL 2.5MG INH SOL UD 3ML (DUONEB)(J7620) NEB ×2 (08:00→14:58)
[2017-09-17] MEDS: GABAPENTIN 300 MG CAP PO ×3 (08:00→17:19)
[2017-09-17] MEDS: PANTOPRAZOLE 40MG TAB (PROTONIX) PO (08:00)
[2017-09-17] MEDS: ENOXAPARIN 40 MG/0.4 ML SYRINGE (J1650) SC (08:01)
[2017-09-17] MEDS: busPIRone 10 MG TAB PO ×3 (08:01→20:50)
[2017-09-17] MEDS: LISINOPRIL 10 MG TAB PO (08:01)
[2017-09-17] MEDS: SYMBICORT 160/4.5MCG INHALER 6GM INH ×2 (09:53→20:20)
[2017-09-17 11:41] LABS: BEDSIDE GLUCOSE 353 MG/DL (70-105)
[2017-09-17 16:31] LABS: BEDSIDE GLUCOSE 333 MG/DL (70-105)
[2017-09-17 20:19] LABS: BEDSIDE GLUCOSE 262 MG/DL (70-105)
[2017-09-17] MEDS: ARIPiprazole 10 MG TAB PO (20:50)
[2017-09-17] MEDS: FAMOTIDINE 20 MG TAB PO (20:50)
[2017-09-17] MEDS: traZODone 100 MG TAB PO (20:51)
[2017-09-17] MEDS: MONTELUKAST 10 MG TAB PO (20:51)
[2017-09-17] MEDS: prednisoLONE (PRELONE) 15MG/5ML SYRUP UDC PO (20:52)
[2017-09-17] MEDS: NORCO, ANEXSIA 5/325MG TABLET (HYDROcodone/ACETAMINOPHEN) PO (20:53)
[2017-09-18] MEDS: LevoFLOXacin 500 MG TABLET PO (05:33)
[2017-09-18] MEDS: LEVOTHYROXINE 25MCG TABLET (0.025MG) PO (05:33)
[2017-09-18 05:44] LABS: HEMATOCRIT 31.1 % (36.0-47.0); HEMOGLOBIN 9.6 g/dl (12.0-15.5); MEAN CORPUSCULAR HEMOGLOBIN 27.6 pg (27.0-33.0); MEAN CORPUSCULAR HGB CONC 30.9 g/dl (32.0-36.5); MEAN CORPUSCULAR VOLUME 89.4 fl (80.0-96.0); PLATELET COUNT, AUTOMATED 321 10^3/uL (150-450); RED BLOOD COUNT 3.48 10^6/uL (4.00-5.40); RED CELL DISTRIBUTION WIDTH 17.6 % (11.5-14.5); WHITE BLOOD COUNT 9.7 10^3/uL (4.0-10.0)
[2017-09-18 05:58] LABS: CHLORIDE LEVEL 100 MEQ/L (98-107); POTASSIUM SERUM 4.1 MEQ/L (3.5-5.1); SODIUM LEVEL 140 MEQ/L (136-145)
[2017-09-18 06:09] LABS: ANION GAP 11 MEQ/L (8-16); BLOOD UREA NITROGEN 24 MG/DL (7-18); CALCIUM LEVEL 8.7 MG/DL (8.5-10.1); CARBON DIOXIDE LEVEL 29 MEQ/L (21-32); CREATININE FOR GFR 0.73 MG/DL (0.55-1.30); GLOMERULAR FILTRATION RATE > 60.0 (>58); GLUCOSE, FASTING 331 MG/DL (70-100)
[2017-09-18] MEDS: LEVEMIR (INSULIN DETEMIR) 1 UNITS/0.01ML SC (07:48)
[2017-09-18] MEDS: HumaLOG INSULIN (NovoLOG) PER UNIT SC (07:49)
[2017-09-18] MEDS: SODIUM CHLORIDE 0.9% INJ 10 ML SYR IV (07:49)
[2017-09-18] MEDS: prednisoLONE (PRELONE) 15MG/5ML SYRUP UDC PO (07:50)
[2017-09-18] MEDS: FERROUS GLUCONATE 324 MG TAB PO (07:50)
[2017-09-18] MEDS: ENOXAPARIN 40 MG/0.4 ML SYRINGE (J1650) SC (07:50)
[2017-09-18] MEDS: DULoxetine 30 MG CAP (CYMBALTA) PO (07:50)
[2017-09-18] MEDS: PANTOPRAZOLE 40MG TAB (PROTONIX) PO (07:51)
[2017-09-18] MEDS: busPIRone 10 MG TAB PO (07:51)
[2017-09-18] MEDS: guaiFENesin ER 600 MG TAB PO (07:51)
[2017-09-18] MEDS: hydroCHLOROthiazide 25 MG TAB PO (07:51)
[2017-09-18] MEDS: DOCUSATE SODIUM 100 MG CAP PO (07:51)
[2017-09-18] MEDS: VENLAFAXINE **XR** 37.5 MG CAPSULE PO (07:51)
[2017-09-18] MEDS: MELOXICAM (MOBIC) 7.5 MG TAB PO (07:51)
[2017-09-18] MEDS: GABAPENTIN 300 MG CAP PO (07:51)
[2017-09-18] MEDS: LISINOPRIL 10 MG TAB PO (07:52)
[2017-09-18] MEDS: IPRATROPIUM 0.5MG/ALBUTEROL 2.5MG INH SOL UD 3ML (DUONEB)(J7620) NEB ×2 (08:00)
[2017-09-18] MEDS: SYMBICORT 160/4.5MCG INHALER 6GM INH (08:04)
== END 2017-09-18 11:53 | disposition home or self-care (01) | DRG 139 ==
LOC: M ED 10:03 → M ED INP 14:47 → M MSPAV 15:41
DX: J18.9 Pneumonia, unspecified organism (principal); J96.21 Acute and chronic respiratory failure with hypoxia; E87.2 Acidosis; E88.01 Alpha-1-antitrypsin deficiency; E11.40 Type 2 diabetes mellitus with diabetic neuropathy, unspecified; J45.901 Unspecified asthma with (acute) exacerbation; E66.01 Morbid (severe) obesity due to excess calories; I10 Essential (primary) hypertension; E78.5 Hyperlipidemia, unspecified; E03.9 Hypothyroidism, unspecified; M54.5 Low back pain; D50.9 Iron deficiency anemia, unspecified; F41.9 Anxiety disorder, unspecified; M79.7 Fibromyalgia; F32.9 Major depressive disorder, single episode, unspecified; F43.10 Post-traumatic stress disorder, unspecified; K21.9 Gastro-esophageal reflux disease without esophagitis; G43.909 Migraine, unspecified, not intractable, without status migrainosus; Z79.899 Other long term (current) drug therapy; Z68.37 Body mass index [BMI] 37.0-37.9, adult; D72.829 Elevated white blood cell count, unspecified; Z88.8 Allergy status to other drugs, medicaments and biological substances

== ENCOUNTER 2017-09-30 13:04 | Inpatient (IN) | payer OTHER ==
[2017-09-30 14:38] LABS: ALBUMIN 3.7 GM/DL (3.2-5.2); ALBUMIN/GLOBULIN RATIO 0.88 (1.00-1.93); ALKALINE PHOSPHATASE 230 U/L (45-117); ALT/SGPT 55 U/L (12-78); ANION GAP 14 MEQ/L (8-16); AST/SGOT 34 U/L (7-37); BILIRUBIN,DIRECT < 0.1 MG/DL (0.0-0.2); BILIRUBIN,TOTAL 0.3 MG/DL (0.2-1.0); BLOOD UREA NITROGEN 28 MG/DL (7-18); CALCIUM LEVEL 9.9 MG/DL (8.5-10.1); CARBON DIOXIDE LEVEL 22 MEQ/L (21-32); CHLORIDE LEVEL 100 MEQ/L (98-107); CPK CREATINE PHOSPHOKINASE 71 U/L (26-192); CREATININE FOR GFR 1.11 MG/DL (0.55-1.30); GLOMERULAR FILTRATION RATE 56.8 (>58); POTASSIUM SERUM 3.9 MEQ/L (3.5-5.1); SODIUM LEVEL 136 MEQ/L (136-145); THYROXINE (T4) 9.2 UG/DL (4.5-12.0); TOTAL PROTEIN 7.9 GM/DL (6.4-8.2); TROPONIN I < 0.02 NG/ML (< 0.10)
[2017-09-30 14:39] LABS: LACTIC ACID SEPSIS PROTOCOL 4.4 MMOL/L (0.4-2.0)
[2017-09-30 14:41] LABS: GLUCOSE, FASTING 508 MG/DL (70-100)
[2017-09-30 14:46] LABS: CK-MB VALUE MASS < 1.0 NG/ML (<3.6); NT-PRO BNP 17 PG/ML (<125); THYROID STIMULATING HORMONE 0.524 uIU/ML (0.358-3.740)
[2017-09-30] MEDS: methylPREDNISolone INJ 125 MG/2 ML VIAL (J2930) IV (15:10)
[2017-09-30 15:42] LABS: BASO # 0.1 10^3/uL (0.0-0.2); BASO % 0.8 % (0.0-1.0); EOS # 0.1 10^3/uL (0.0-0.50); EOS % 1.4 % (0.0-3.0); HEMATOCRIT 32.5 % (36.0-47.0); HEMOGLOBIN 10.1 g/dl (12.0-15.5); IMMATURE GRANULOCYTE % 0.3 % (0-3.0); LYMPH # 2.1 10^3/uL (1.5-4.5); LYMPH % 22.3 % (24.0-44.0); MEAN CORPUSCULAR HEMOGLOBIN 27.7 pg (27.0-33.0); MEAN CORPUSCULAR HGB CONC 31.1 g/dl (32.0-36.5); MEAN CORPUSCULAR VOLUME 89.3 fl (80.0-96.0); MONO % 10.1 % (0.0-5.0); NEUTROPHILS # 6.1 10^3/uL (1.8-7.7); NEUTROPHILS % 65.1 % (36.0-66.0); PLATELET COUNT, AUTOMATED 294 10^3/uL (150-450); RED BLOOD COUNT 3.64 10^6/uL (4.00-5.40); RED CELL DISTRIBUTION WIDTH 16.5 % (11.5-14.5); WHITE BLOOD COUNT 9.4 10^3/uL (4.0-10.0)
[2017-09-30] MEDS: ALBUTEROL SULFATE 2.5 MG/0.5 ML INH NEB SOLN NEB ×3 (15:56→15:57)
[2017-09-30 16:19] LABS: BEDSIDE GLUCOSE 473 MG/DL (70-105)
[2017-09-30] MEDS: HumaLOG INSULIN (NovoLOG) PER UNIT SC ×3 (16:24→23:07)
[2017-09-30 18:08] LABS: BEDSIDE GLUCOSE 403 MG/DL (70-105)
[2017-09-30] MEDS: NS 1,000 ML IV (18:11)
[2017-09-30] MEDS ORDERED: GLUCOSE 4 GM CHEW TABLET PO (18:30)
[2017-09-30] MEDS ORDERED: DEXTROSE 50% 50 ML SYRINGE IV (18:30)
[2017-09-30] MEDS ORDERED: GLUCAGON FOR INJ 1 MG VIAL (J1610) SC (18:30)
[2017-09-30 19:23] LABS: BEDSIDE GLUCOSE 386 MG/DL (70-105)
[2017-09-30] MEDS ORDERED: DICLOFENAC EPOLAMINE 1.3 % PATCH TOP (20:00)
[2017-09-30] MEDS ORDERED: LEVEMIR (INSULIN DETEMIR) 1 UNITS/0.01ML SC (21:00)
[2017-09-30] MEDS ORDERED: SYMBICORT 80/4.5MCG INHALER 6GM INH (21:00)
[2017-09-30] MEDS: SYMBICORT 160/4.5MCG INHALER 6GM INH (21:10)
[2017-09-30] MEDS: IPRATROPIUM 0.5MG/ALBUTEROL 2.5MG INH SOL UD 3ML (DUONEB)(J7620) NEB (21:11)
[2017-09-30 22:36] LABS: BEDSIDE GLUCOSE 457 MG/DL (70-105)
[2017-09-30] MEDS: traZODone 100 MG TAB PO (23:07)
[2017-09-30] MEDS: LEVEMIR (INSULIN DETEMIR) 1 UNITS/0.01ML SC (23:07)
[2017-09-30] MEDS: busPIRone 10 MG TAB PO (23:08)
[2017-09-30] MEDS: FAMOTIDINE 20 MG TAB PO (23:08)
[2017-09-30] MEDS: SENOKOT S TAB PO (23:08)
[2017-09-30] MEDS: PANTOPRAZOLE 40MG TAB (PROTONIX) PO (23:09)
[2017-09-30] MEDS: FERROUS GLUCONATE 324 MG TAB PO (23:09)
[2017-09-30] MEDS: VENLAFAXINE 37.5 MG TAB PO (23:09)
[2017-09-30] MEDS: NORCO, ANEXSIA 5/325MG TABLET (HYDROcodone/ACETAMINOPHEN) PO (23:09)
[2017-09-30] MEDS: MONTELUKAST 10 MG TAB PO (23:09)
[2017-09-30] MEDS: ARIPiprazole 10 MG TAB PO (23:10)
[2017-09-30] MEDS: GABAPENTIN 300 MG CAP PO (23:12)
[2017-09-30] MEDS: NS 500 ML IV (23:39)
[2017-10-01] MEDS: IPRATROPIUM 0.5MG/ALBUTEROL 2.5MG INH SOL UD 3ML (DUONEB)(J7620) NEB ×4 (02:00→20:00)
[2017-10-01] MEDS: LEVOTHYROXINE 25MCG TABLET (0.025MG) PO (05:04)
[2017-10-01] MEDS: SODIUM CHLORIDE 0.9% INJ 10 ML SYR IV ×2 (05:05→09:26)
[2017-10-01 05:19] LABS: BASO % 0.1 % (0.0-1.0); HEMATOCRIT 29.4 % (36.0-47.0); IMMATURE GRANULOCYTE % 0.7 % (0-3.0); LYMPH # 1.6 10^3/uL (1.5-4.5); LYMPH % 15.9 % (24.0-44.0); MEAN CORPUSCULAR HEMOGLOBIN 27.7 pg (27.0-33.0); MEAN CORPUSCULAR HGB CONC 30.6 g/dl (32.0-36.5); MEAN CORPUSCULAR VOLUME 90.5 fl (80.0-96.0); MONO # 0.5 10^3/uL (0.0-0.8); MONO % 4.6 % (0.0-5.0); NEUTROPHILS # 7.9 10^3/uL (1.8-7.7); NEUTROPHILS % 78.7 % (36.0-66.0); PLATELET COUNT, AUTOMATED 264 10^3/uL (150-450); RED BLOOD COUNT 3.25 10^6/uL (4.00-5.40); RED CELL DISTRIBUTION WIDTH 16.8 % (11.5-14.5)
[2017-10-01 05:38] LABS: ANION GAP 8 MEQ/L (8-16); BLOOD UREA NITROGEN 17 MG/DL (7-18); CALCIUM LEVEL 8.7 MG/DL (8.5-10.1); CARBON DIOXIDE LEVEL 27 MEQ/L (21-32); CHLORIDE LEVEL 105 MEQ/L (98-107); GLOMERULAR FILTRATION RATE > 60.0 (>58); GLUCOSE, FASTING 301 MG/DL (70-100); POTASSIUM SERUM 3.9 MEQ/L (3.5-5.1); SODIUM LEVEL 140 MEQ/L (136-145)
[2017-10-01] MEDS: SYMBICORT 160/4.5MCG INHALER 6GM INH ×2 (08:57→20:56)
[2017-10-01] MEDS: TIOTROPIUM INHALER/CAPSULE (SPIRIVA) INH (08:57)
[2017-10-01] MEDS ORDERED: PANTOPRAZOLE 40MG TAB (PROTONIX) PO (09:00)
[2017-10-01] MEDS: ENOXAPARIN 40 MG/0.4 ML SYRINGE (J1650) SC (09:25)
[2017-10-01] MEDS: methylPREDNISolone INJ 40 MG/1 ML VIAL (J2920) IV (09:25)
[2017-10-01] MEDS: LEVEMIR (INSULIN DETEMIR) 1 UNITS/0.01ML SC ×2 (09:26→20:26)
[2017-10-01] MEDS: HumaLOG INSULIN (NovoLOG) PER UNIT SC ×4 (09:27→20:27)
[2017-10-01] MEDS: PANTOPRAZOLE 40MG TAB (PROTONIX) PO ×2 (09:29→20:28)
[2017-10-01] MEDS: SENOKOT S TAB PO ×2 (09:29→20:27)
[2017-10-01] MEDS: MELOXICAM (MOBIC) 7.5 MG TAB PO (09:29)
[2017-10-01] MEDS: DULoxetine 30 MG CAP (CYMBALTA) PO (09:29)
[2017-10-01] MEDS: GABAPENTIN 300 MG CAP PO ×3 (09:29→16:10)
[2017-10-01] MEDS: LISINOPRIL 10 MG TAB PO (09:29)
[2017-10-01] MEDS: GEMFIBROZIL 600 MG TAB PO (09:29)
[2017-10-01] MEDS: busPIRone 10 MG TAB PO ×3 (09:30→20:27)
[2017-10-01] MEDS: FERROUS GLUCONATE 324 MG TAB PO ×2 (09:30→20:28)
[2017-10-01] MEDS: hydroCHLOROthiazide 25 MG TAB PO (09:30)
[2017-10-01] MEDS: NORCO, ANEXSIA 5/325MG TABLET (HYDROcodone/ACETAMINOPHEN) PO ×2 (09:47→20:29)
[2017-10-01] MEDS: tiZANidine 4 MG TAB PO ×2 (13:08→21:44)
[2017-10-01] MEDS: prednisoLONE (PRELONE) 15MG/5ML SYRUP UDC PO (20:26)
[2017-10-01] MEDS: VENLAFAXINE 37.5 MG TAB PO (20:27)
[2017-10-01] MEDS: traZODone 100 MG TAB PO (20:27)
[2017-10-01] MEDS: FAMOTIDINE 20 MG TAB PO (20:27)
[2017-10-01] MEDS: MONTELUKAST 10 MG TAB PO (20:27)
[2017-10-01] MEDS: ARIPiprazole 10 MG TAB PO (20:28)
[2017-10-02] MEDS: IPRATROPIUM 0.5MG/ALBUTEROL 2.5MG INH SOL UD 3ML (DUONEB)(J7620) NEB ×2 (01:41→08:00)
[2017-10-02] MEDS: LEVOTHYROXINE 25MCG TABLET (0.025MG) PO (05:56)
[2017-10-02] MEDS: SODIUM CHLORIDE 0.9% INJ 10 ML SYR IV ×2 (05:57→07:50)
[2017-10-02 06:17] LABS: BASO % 0.2 % (0.0-1.0); HEMATOCRIT 27.9 % (36.0-47.0); HEMOGLOBIN 8.8 g/dl (12.0-15.5); IMMATURE GRANULOCYTE % 0.5 % (0-3.0); LYMPH # 2.5 10^3/uL (1.5-4.5); LYMPH % 24.1 % (24.0-44.0); MEAN CORPUSCULAR HEMOGLOBIN 27.8 pg (27.0-33.0); MEAN CORPUSCULAR HGB CONC 31.5 g/dl (32.0-36.5); MEAN CORPUSCULAR VOLUME 88.3 fl (80.0-96.0); MONO # 0.6 10^3/uL (0.0-0.8); MONO % 6.2 % (0.0-5.0); NEUTROPHILS # 7.1 10^3/uL (1.8-7.7); PLATELET COUNT, AUTOMATED 258 10^3/uL (150-450); RED BLOOD COUNT 3.16 10^6/uL (4.00-5.40); RED CELL DISTRIBUTION WIDTH 16.7 % (11.5-14.5); WHITE BLOOD COUNT 10.2 10^3/uL (4.0-10.0)
[2017-10-02 06:47] LABS: ANION GAP 10 MEQ/L (8-16); BLOOD UREA NITROGEN 23 MG/DL (7-18); CALCIUM LEVEL 8.7 MG/DL (8.5-10.1); CARBON DIOXIDE LEVEL 27 MEQ/L (21-32); CHLORIDE LEVEL 103 MEQ/L (98-107); GLOMERULAR FILTRATION RATE > 60.0 (>58); GLUCOSE, FASTING 363 MG/DL (70-100); POTASSIUM SERUM 3.9 MEQ/L (3.5-5.1); SODIUM LEVEL 140 MEQ/L (136-145)
[2017-10-02] MEDS: HumaLOG INSULIN (NovoLOG) PER UNIT SC (07:46)
[2017-10-02] MEDS: GEMFIBROZIL 600 MG TAB PO (07:47)
[2017-10-02] MEDS: LEVEMIR (INSULIN DETEMIR) 1 UNITS/0.01ML SC (07:47)
[2017-10-02] MEDS: PANTOPRAZOLE 40MG TAB (PROTONIX) PO (07:47)
[2017-10-02] MEDS: SENOKOT S TAB PO (07:47)
[2017-10-02] MEDS: FERROUS GLUCONATE 324 MG TAB PO (07:47)
[2017-10-02] MEDS: busPIRone 10 MG TAB PO (07:48)
[2017-10-02] MEDS: hydroCHLOROthiazide 25 MG TAB PO (07:48)
[2017-10-02] MEDS: MELOXICAM (MOBIC) 7.5 MG TAB PO (07:48)
[2017-10-02] MEDS: DULoxetine 30 MG CAP (CYMBALTA) PO (07:49)
[2017-10-02] MEDS: LISINOPRIL 10 MG TAB PO (07:49)
[2017-10-02] MEDS: GABAPENTIN 300 MG CAP PO (07:49)
[2017-10-02] MEDS: ENOXAPARIN 40 MG/0.4 ML SYRINGE (J1650) SC (07:50)
[2017-10-02] MEDS: prednisoLONE (PRELONE) 15MG/5ML SYRUP UDC PO (07:51)
[2017-10-02] MEDS: TIOTROPIUM INHALER/CAPSULE (SPIRIVA) INH (08:04)
[2017-10-02] MEDS: SYMBICORT 160/4.5MCG INHALER 6GM INH (08:04)
[2017-10-02] MEDS: FLUCONAZOLE 50MG TABLET PO (11:40)
[2017-10-04 12:11] LABS: BEDSIDE GLUCOSE 455 MG/DL (70-105)
[2017-10-04 12:11] LABS: BEDSIDE GLUCOSE 422 MG/DL (70-105)
[2017-10-04 12:11] LABS: BEDSIDE GLUCOSE 289 MG/DL (70-105)
== END 2017-10-02 12:00 | disposition home or self-care (01) | DRG 140 ==
LOC: M ED 13:04 → M ED INP 18:57 → M MSPAV 22:29
DX: J44.1 Chronic obstructive pulmonary disease with (acute) exacerbation (principal); E87.2 Acidosis; E11.40 Type 2 diabetes mellitus with diabetic neuropathy, unspecified; E88.01 Alpha-1-antitrypsin deficiency; E11.65 Type 2 diabetes mellitus with hyperglycemia; I10 Essential (primary) hypertension; E78.5 Hyperlipidemia, unspecified; E03.9 Hypothyroidism, unspecified; G47.33 Obstructive sleep apnea (adult) (pediatric); K21.9 Gastro-esophageal reflux disease without esophagitis; D50.9 Iron deficiency anemia, unspecified; M54.9 Dorsalgia, unspecified; E66.9 Obesity, unspecified; F41.9 Anxiety disorder, unspecified; F32.9 Major depressive disorder, single episode, unspecified; F43.10 Post-traumatic stress disorder, unspecified; M79.7 Fibromyalgia; G43.909 Migraine, unspecified, not intractable, without status migrainosus; Z79.4 Long term (current) use of insulin; Z79.899 Other long term (current) drug therapy; Z88.8 Allergy status to other drugs, medicaments and biological substances; Z95.828 Presence of other vascular implants and grafts; Z90.49 Acquired absence of other specified parts of digestive tract; Z87.891 Personal history of nicotine dependence

== ENCOUNTER 2017-10-10 11:44 | Emergency (ER) | payer OTHER ==
[2017-10-10] MEDS: diphenhydrAMINE INJ 50MG/ML VIAL (J1200) IV (13:41)
[2017-10-10] MEDS: NS 1,000 ML IV (13:41)
[2017-10-10] MEDS: KETOROLAC 30 MG/ML VIAL (J1885) IV (13:41)
[2017-10-10] MEDS: TRIMETHOBENZAMIDE HCL INJ 200 MG/2 ML VIAL (J3250) IM (13:41)
[2017-10-10] MEDS: methylPREDNISolone INJ 125 MG/2 ML VIAL (J2930) IV (14:47)
[2017-10-10] MEDS: MORPHINE 4 MG/ML 1ML VIAL/SYRINGE (J2270) IV ×2 (14:48→19:15)
[2017-10-10] MEDS ORDERED: MAGNESIUM SULFATE 1 GM/100 ML D5W BAG (10MG/ML) (J3475) As Ordered (16:32)
[2017-10-10] MEDS ORDERED: ONDANSETRON 4MG/2ML VIAL (J2405) As Ordered (16:36)
[2017-10-10] MEDS: MAG SULF 1GM/100ML (MAG RUN) 1 GM in APPROPRIATE DILUENT 1 EA IV (16:42)
[2017-10-10] MEDS: ONDANSETRON 4MG/2ML VIAL (J2405) IV (16:44)
[2017-10-10] MEDS: VALPROATE SOD INJ 1,000 MG in D5W 50 ML IV (17:49)
[2017-10-10 19:40] LABS: BASO % 0.4 % (0.0-1.0); EOS # 0.1 10^3/uL (0.0-0.50); EOS % 0.5 % (0.0-3.0); HEMOGLOBIN 10.7 g/dl (12.0-15.5); LYMPH # 2.5 10^3/uL (1.5-4.5); LYMPH % 23.6 % (24.0-44.0); MEAN CORPUSCULAR HEMOGLOBIN 27.9 pg (27.0-33.0); MEAN CORPUSCULAR HGB CONC 30.6 g/dl (32.0-36.5); MEAN CORPUSCULAR VOLUME 91.1 fl (80.0-96.0); MONO # 0.2 10^3/uL (0.0-0.8); MONO % 1.7 % (0.0-5.0); NEUTROPHILS # 7.7 10^3/uL (1.8-7.7); NEUTROPHILS % 72.8 % (36.0-66.0); PLATELET COUNT, AUTOMATED 325 10^3/uL (150-450); RED BLOOD COUNT 3.84 10^6/uL (4.00-5.40); RED CELL DISTRIBUTION WIDTH 15.9 % (11.5-14.5); WHITE BLOOD COUNT 10.6 10^3/uL (4.0-10.0)
[2017-10-10 19:54] LABS: ANION GAP 9 MEQ/L (8-16); BLOOD UREA NITROGEN 8 MG/DL (7-18); CALCIUM LEVEL 8.9 MG/DL (8.5-10.1); CARBON DIOXIDE LEVEL 29 MEQ/L (21-32); CHLORIDE LEVEL 103 MEQ/L (98-107); CREATININE FOR GFR 0.87 MG/DL (0.55-1.30); GLOMERULAR FILTRATION RATE > 60.0 (>58); GLUCOSE, FASTING 223 MG/DL (70-100); POTASSIUM SERUM 3.9 MEQ/L (3.5-5.1); SODIUM LEVEL 141 MEQ/L (136-145)
[2017-10-10] MEDS: HALOPERIDOL 5 MG/ML VIAL (J1630) IV (20:42)
== END 2017-10-10 23:23 | disposition home or self-care (01) ==
LOC: M ED 11:44
DX: G43.909 Migraine, unspecified, not intractable, without status migrainosus (principal); J44.9 Chronic obstructive pulmonary disease, unspecified; F43.10 Post-traumatic stress disorder, unspecified; F41.9 Anxiety disorder, unspecified; Z87.440 Personal history of urinary (tract) infections; G60.9 Hereditary and idiopathic neuropathy, unspecified; E88.01 Alpha-1-antitrypsin deficiency; R94.5 Abnormal results of liver function studies; Z87.891 Personal history of nicotine dependence; Z79.4 Long term (current) use of insulin; Z79.899 Other long term (current) drug therapy; Z88.8 Allergy status to other drugs, medicaments and biological substances
CPT/HCPCS: J2270

== ENCOUNTER → 2017-10-13 | Outpatient (REF) | payer OTHER ==
[2017-10-13 17:13] LABS: BASO # 0.1 10^3/uL (0.0-0.2); BASO % 0.6 % (0.0-1.0); EOS # 0.2 10^3/uL (0.0-0.50); EOS % 2.1 % (0.0-3.0); HEMATOCRIT 34.3 % (36.0-47.0); HEMOGLOBIN 10.4 g/dl (12.0-15.5); LYMPH # 3.7 10^3/uL (1.5-4.5); LYMPH % 33.8 % (24.0-44.0); MEAN CORPUSCULAR HEMOGLOBIN 27.4 pg (27.0-33.0); MEAN CORPUSCULAR HGB CONC 30.3 g/dl (32.0-36.5); MEAN CORPUSCULAR VOLUME 90.5 fl (80.0-96.0); MONO # 0.8 10^3/uL (0.0-0.8); MONO % 7.7 % (0.0-5.0); NEUTROPHILS % 54.8 % (36.0-66.0); PLATELET COUNT, AUTOMATED 338 10^3/uL (150-450); RED BLOOD COUNT 3.79 10^6/uL (4.00-5.40); RED CELL DISTRIBUTION WIDTH 15.9 % (11.5-14.5)
[2017-10-13 18:42] LABS: IMMUNOGLOBULIN E 3.9 IU/ML (<100)
[2017-10-17 00:11] LABS: D001-IgE D pteronyssinus <0.10 kU/L (Class 0); E001-IgE Cat Epith/Dander < 0.10 kU/L (Class 0); E005-IgE Dog Dander < 0.10 kU/L (Class 0); G002-IgE Bermuda Grass < 0.10 kU/L (Class 0); G008-IgE Kentucky Bluegrass < 0.10 kU/L (Class 0); M001-IgE Penicillium chrysogen < 0.10 kU/L (Class 0); M002 IgE Cladosporium herbaru < 0.10 kU/L (Class 0); M003 IgE Aspergillus fumigatu < 0.10 kU/L (Class 0); M006-IgE Alternaria alternata < 0.10 kU/L (Class 0); T001-IgE Maple/Box Elder < 0.10 kU/L (Class 0); T003-IgE Common Silver Birch < 0.10 kU/L (Class 0); T006-IgE Cedar, Mountain < 0.10 kU/L (Class 0); T007-IgE Oak, White < 0.10 kU/L (Class 0); T008-IgE Elm, American < 0.10 kU/L (Class 0); T015-IgE Ash, White < 0.10 kU/L (Class 0); T041-IgE Hickory, White < 0.10 kU/L (Class 0); T070-IgE White Mulberry < 0.10 kU/L (Class 0); W001-IgE Ragweed, Short < 0.10 kU/L (Class 0); W009-IgE Plantain, English < 0.10 kU/L (Class 0); W014-IgE Pigweed, Rough < 0.10 kU/L (Class 0); W018-IgE Sheep Sorrel < 0.10 kU/L (Class 0)
== END ==
LOC: M LAB REF 16:51
DX: J45.998 Other asthma (principal)

== ENCOUNTER 2017-10-18 15:24 | Emergency (ER) | payer OTHER ==
[2017-10-18 15:59] LABS: VENOUS BASE EXCESS -1.9 (-2.0-2.0); VENOUS HCO3 23.9 MEQ/L (23.0-27.0); VENOUS O2 SATURATION 78.6 % (60.0-80.0); VENOUS PARTIAL PRESSURE O2 46.3 mmHg (30.0-50.0); VENOUS PH 7.343 UNITS (7.330-7.430); VENOUS STANDARD HCO3 22.5 MEQ/L; VENOUS TOTAL CO2 25.3 MEQ/L (24.0-28.0)
[2017-10-18 16:00] LABS: BASO # 0.1 10^3/uL (0.0-0.2); BASO % 0.5 % (0.0-1.0); EOS # 0.2 10^3/uL (0.0-0.50); EOS % 2.1 % (0.0-3.0); HEMATOCRIT 32.5 % (36.0-47.0); HEMOGLOBIN 10.1 g/dl (12.0-15.5); IMMATURE GRANULOCYTE % 0.6 % (0-3.0); LYMPH # 4.4 10^3/uL (1.5-4.5); LYMPH % 40.4 % (24.0-44.0); MEAN CORPUSCULAR HEMOGLOBIN 28.1 pg (27.0-33.0); MEAN CORPUSCULAR HGB CONC 31.1 g/dl (32.0-36.5); MEAN CORPUSCULAR VOLUME 90.5 fl (80.0-96.0); NEUTROPHILS # 5.1 10^3/uL (1.8-7.7); NEUTROPHILS % 47.4 % (36.0-66.0); PLATELET COUNT, AUTOMATED 272 10^3/uL (150-450); RED BLOOD COUNT 3.59 10^6/uL (4.00-5.40); RED CELL DISTRIBUTION WIDTH 15.9 % (11.5-14.5); WHITE BLOOD COUNT 10.8 10^3/uL (4.0-10.0)
[2017-10-18 16:29] LABS: ALBUMIN 3.2 GM/DL (3.2-5.2); ALBUMIN/GLOBULIN RATIO 0.78 (1.00-1.93); ALKALINE PHOSPHATASE 190 U/L (45-117); ALT/SGPT 45 U/L (12-78); ANION GAP 9 MEQ/L (8-16); AST/SGOT 20 U/L (7-37); BILIRUBIN,DIRECT < 0.1 MG/DL (0.0-0.2); BILIRUBIN,TOTAL 0.1 MG/DL (0.2-1.0); BLOOD UREA NITROGEN 19 MG/DL (7-18); CARBON DIOXIDE LEVEL 26 MEQ/L (21-32); CHLORIDE LEVEL 101 MEQ/L (98-107); CPK CREATINE PHOSPHOKINASE 42 U/L (26-192); CREATININE FOR GFR 0.92 MG/DL (0.55-1.30); GLOMERULAR FILTRATION RATE > 60.0 (>58); GLUCOSE, FASTING 312 MG/DL (70-100); POTASSIUM SERUM 3.5 MEQ/L (3.5-5.1); SODIUM LEVEL 136 MEQ/L (136-145); TOTAL PROTEIN 7.3 GM/DL (6.4-8.2); TROPONIN I < 0.02 NG/ML (< 0.10)
[2017-10-18 16:32] LABS: CK-MB VALUE MASS < 1.0 NG/ML (<3.6); MB/CK RELATIVE INDEX 2.38 (< OR =4); NT-PRO BNP 41 PG/ML (<125)
== END 2017-10-18 17:07 | disposition home or self-care (01) ==
LOC: M ED 15:24
DX: J45.909 Unspecified asthma, uncomplicated (principal); E11.9 Type 2 diabetes mellitus without complications; I50.9 Heart failure, unspecified; K21.9 Gastro-esophageal reflux disease without esophagitis; Z79.899 Other long term (current) drug therapy; Z79.4 Long term (current) use of insulin; Z79.890 Hormone replacement therapy; Z88.8 Allergy status to other drugs, medicaments and biological substances
CPT/HCPCS: 71046

== ENCOUNTER 2017-10-19 15:13 | Inpatient (IN) | payer OTHER ==
[2017-10-19] MEDS: IPRATROPIUM 0.5MG/ALBUTEROL 2.5MG INH SOL UD 3ML (DUONEB)(J7620) NEB ×3 (16:03→16:58)
[2017-10-19 16:22] LABS: ABG BASE EXCESS -1.8 (-2.0-2.0); ABG HCO3 22.1 MEQ/L (22.0-26.0); ABG O2 SATURATION 97.8 % (95.0-99.0); ABG PARTIAL PRESSURE CO2 34.4 mmHg (35.0-45.0); ABG PARTIAL PRESSURE O2 103.4 mmHg (75.0-100.0); ABG TOTAL CO2 23.2 MEQ/L (22.0-29.0); ABG pH (ARTERIAL) 7.426 UNITS (7.350-7.450)
[2017-10-19] MEDS: methylPREDNISolone INJ 125 MG/2 ML VIAL (J2930) IV (16:33)
[2017-10-19 16:36] LABS: BASO # 0.1 10^3/uL (0.0-0.2); BASO % 0.6 % (0.0-1.0); EOS # 0.2 10^3/uL (0.0-0.50); EOS % 1.7 % (0.0-3.0); HEMATOCRIT 32.2 % (36.0-47.0); HEMOGLOBIN 9.9 g/dl (12.0-15.5); IMMATURE GRANULOCYTE % 0.9 % (0-3.0); LYMPH # 2.6 10^3/uL (1.5-4.5); LYMPH % 27.6 % (24.0-44.0); MEAN CORPUSCULAR HEMOGLOBIN 27.5 pg (27.0-33.0); MEAN CORPUSCULAR HGB CONC 30.7 g/dl (32.0-36.5); MEAN CORPUSCULAR VOLUME 89.4 fl (80.0-96.0); MONO % 10.2 % (0.0-5.0); NEUTROPHILS # 5.6 10^3/uL (1.8-7.7); PLATELET COUNT, AUTOMATED 281 10^3/uL (150-450); RED CELL DISTRIBUTION WIDTH 15.9 % (11.5-14.5); WHITE BLOOD COUNT 9.4 10^3/uL (4.0-10.0)
[2017-10-19 16:56] LABS: ALBUMIN 3.2 GM/DL (3.2-5.2); ALBUMIN/GLOBULIN RATIO 0.76 (1.00-1.93); ALKALINE PHOSPHATASE 175 U/L (45-117); ALT/SGPT 44 U/L (12-78); ANION GAP 11 MEQ/L (8-16); AST/SGOT 22 U/L (7-37); BILIRUBIN,DIRECT < 0.1 MG/DL (0.0-0.2); BILIRUBIN,TOTAL 0.2 MG/DL (0.2-1.0); BLOOD UREA NITROGEN 16 MG/DL (7-18); CALCIUM LEVEL 8.9 MG/DL (8.5-10.1); CARBON DIOXIDE LEVEL 25 MEQ/L (21-32); CHLORIDE LEVEL 103 MEQ/L (98-107); CPK CREATINE PHOSPHOKINASE 30 U/L (26-192); CREATININE FOR GFR 0.94 MG/DL (0.55-1.30); GLOMERULAR FILTRATION RATE > 60.0 (>58); GLUCOSE, FASTING 226 MG/DL (70-100); POTASSIUM SERUM 3.4 MEQ/L (3.5-5.1); SODIUM LEVEL 139 MEQ/L (136-145); TOTAL PROTEIN 7.4 GM/DL (6.4-8.2); TROPONIN I < 0.02 NG/ML (< 0.10)
[2017-10-19 17:02] LABS: CK-MB VALUE MASS < 1.0 NG/ML (<3.6); MB/CK RELATIVE INDEX 3.33 (< OR =4); NT-PRO BNP 28 PG/ML (<125); THYROID STIMULATING HORMONE 0.419 uIU/ML (0.358-3.740)
[2017-10-19] MEDS: POTASSIUM CHLORIDE 10 MEQ SR TABLET PO ×2 (17:54→22:15)
[2017-10-19] MEDS: ALBUTEROL SULFATE 2.5 MG/0.5 ML INH NEB SOLN NEB (18:36)
[2017-10-19] MEDS ORDERED: ISOVUE-370 76% 100ML VIAL (Q9967) As Ordered (18:36)
[2017-10-19] MEDS: SYMBICORT 160/4.5MCG INHALER 6GM INH (21:00)
[2017-10-19] MEDS ORDERED: GLUCOSE 4 GM CHEW TABLET PO (22:15)
[2017-10-19] MEDS ORDERED: ACETAMINOPHEN TAB 650MG DOSE (2X325MG) PO (22:15)
[2017-10-19] MEDS ORDERED: DEXTROSE 50% 50 ML SYRINGE IV (22:15)
[2017-10-19] MEDS ORDERED: IPRATROPIUM 0.5MG/ALBUTEROL 2.5MG INH SOL UD 3ML (DUONEB)(J7620) NEB (22:15)
[2017-10-19] MEDS ORDERED: GLUCAGON FOR INJ 1 MG VIAL (J1610) SC (22:15)
[2017-10-19] MEDS ORDERED: POLYVINYL ALCOHOL OPHTH SOLN 15 ML(LIQUITEARS) OU (22:30)
[2017-10-19] MEDS ORDERED: KETOROLAC TROMETHAMINE 10 MG TAB PO (22:30)
[2017-10-20 00:34] LABS: BEDSIDE GLUCOSE 419 MG/DL (70-105)
[2017-10-20] MEDS: PANTOPRAZOLE 40MG TAB (PROTONIX) PO ×3 (01:05→20:46)
[2017-10-20] MEDS: GABAPENTIN 300 MG CAP PO ×4 (01:05→17:28)
[2017-10-20] MEDS: ARIPiprazole 10 MG TAB PO ×2 (01:05→20:46)
[2017-10-20] MEDS: TOPIRAMATE (TopAMAX) 25 MG TAB PO ×3 (01:05→20:46)
[2017-10-20] MEDS: busPIRone 10 MG TAB PO ×4 (01:05→20:46)
[2017-10-20] MEDS: NORCO, ANEXSIA 5/325MG TABLET (HYDROcodone/ACETAMINOPHEN) PO ×3 (01:05→20:50)
[2017-10-20] MEDS: FERROUS GLUCONATE 324 MG TAB PO ×3 (01:06→20:47)
[2017-10-20] MEDS: DOCUSATE SODIUM 100 MG CAP PO ×2 (01:06→20:46)
[2017-10-20] MEDS: FAMOTIDINE 20 MG TAB PO ×2 (01:06→20:46)
[2017-10-20] MEDS: MONTELUKAST 10 MG TAB PO ×2 (01:07→20:47)
[2017-10-20] MEDS: HumaLOG INSULIN (NovoLOG) PER UNIT SC ×6 (01:07→22:37)
[2017-10-20] MEDS: methylPREDNISolone INJ 125 MG/2 ML VIAL (J2930) IV ×3 (01:08→16:37)
[2017-10-20] MEDS: VENLAFAXINE **XR** 75MG CAPSULE PO ×2 (01:09→20:46)
[2017-10-20] MEDS: IPRATROPIUM 0.5MG/ALBUTEROL 2.5MG INH SOL UD 3ML (DUONEB)(J7620) NEB ×4 (01:34→20:00)
[2017-10-20] MEDS: LEVEMIR (INSULIN DETEMIR) 1 UNITS/0.01ML SC ×3 (06:12→22:36)
[2017-10-20] MEDS: SODIUM CHLORIDE 0.9% INJ 10 ML SYR IV ×2 (06:12→08:24)
[2017-10-20 07:02] LABS: ANION GAP 12 MEQ/L (8-16); BLOOD UREA NITROGEN 18 MG/DL (7-18); CALCIUM LEVEL 9.6 MG/DL (8.5-10.1); CARBON DIOXIDE LEVEL 20 MEQ/L (21-32); CHLORIDE LEVEL 107 MEQ/L (98-107); CREATININE FOR GFR 0.85 MG/DL (0.55-1.30); GLOMERULAR FILTRATION RATE > 60.0 (>58); GLUCOSE, FASTING 374 MG/DL (70-100); POTASSIUM SERUM 4.6 MEQ/L (3.5-5.1); SODIUM LEVEL 139 MEQ/L (136-145)
[2017-10-20] MEDS: SYMBICORT 160/4.5MCG INHALER 6GM INH ×2 (07:46→20:15)
[2017-10-20] MEDS: MELOXICAM (MOBIC) 7.5 MG TAB PO (08:17)
[2017-10-20] MEDS: DULoxetine 30 MG CAP (CYMBALTA) PO (08:18)
[2017-10-20] MEDS: LISINOPRIL 10 MG TAB PO (08:22)
[2017-10-20] MEDS: GEMFIBROZIL 600 MG TAB PO (08:22)
[2017-10-20] MEDS: hydroCHLOROthiazide 25 MG TAB PO (08:23)
[2017-10-20] MEDS: LEVOTHYROXINE 25MCG TABLET (0.025MG) PO (08:23)
[2017-10-20] MEDS: ENOXAPARIN 40 MG/0.4 ML SYRINGE (J1650) SC (08:24)
[2017-10-20] MEDS ORDERED: BASAGLAR 100 UNIT/ML SC (09:00)
[2017-10-20] MEDS ORDERED: PANTOPRAZOLE 40MG TAB (PROTONIX) PO (09:00)
[2017-10-20 09:31] LABS: BASO % 0.1 % (0.0-1.0); HEMATOCRIT 31.2 % (36.0-47.0); HEMOGLOBIN 9.7 g/dl (12.0-15.5); IMMATURE GRANULOCYTE % 0.8 % (0-3.0); LYMPH # 1.5 10^3/uL (1.5-4.5); LYMPH % 10.5 % (24.0-44.0); MEAN CORPUSCULAR HEMOGLOBIN 27.6 pg (27.0-33.0); MEAN CORPUSCULAR HGB CONC 31.1 g/dl (32.0-36.5); MEAN CORPUSCULAR VOLUME 88.6 fl (80.0-96.0); MONO # 0.5 10^3/uL (0.0-0.8); MONO % 3.5 % (0.0-5.0); NEUTROPHILS # 11.9 10^3/uL (1.8-7.7); NEUTROPHILS % 85.1 % (36.0-66.0); PLATELET COUNT, AUTOMATED 298 10^3/uL (150-450); RED BLOOD COUNT 3.52 10^6/uL (4.00-5.40); RED CELL DISTRIBUTION WIDTH 16.3 % (11.5-14.5)
[2017-10-20 09:47] LABS: ANION GAP 10 MEQ/L (8-16); BLOOD UREA NITROGEN 17 MG/DL (7-18); CALCIUM LEVEL 9.4 MG/DL (8.5-10.1); CARBON DIOXIDE LEVEL 22 MEQ/L (21-32); CHLORIDE LEVEL 106 MEQ/L (98-107); CREATININE FOR GFR 0.81 MG/DL (0.55-1.30); GLOMERULAR FILTRATION RATE > 60.0 (>58); GLUCOSE, FASTING 396 MG/DL (70-100); POTASSIUM SERUM 4.4 MEQ/L (3.5-5.1); SODIUM LEVEL 138 MEQ/L (136-145)
[2017-10-20] MEDS: guaiFENesin ER 600 MG TAB PO ×2 (09:59→20:46)
[2017-10-20 11:52] LABS: BEDSIDE GLUCOSE 386 MG/DL (70-105)
[2017-10-20 12:17] LABS: BEDSIDE GLUCOSE 444 MG/DL (70-105)
[2017-10-20] MEDS: METOCLOPRAMIDE 10 MG TAB PO (12:26)
[2017-10-20] MEDS: SUMAtriptan SUCCINATE 25 MG TAB PO ×2 (13:48→23:19)
[2017-10-20 20:42] LABS: BEDSIDE GLUCOSE 388 MG/DL (70-105)
[2017-10-20 22:00] LABS: BEDSIDE GLUCOSE 536 MG/DL (70-105)
[2017-10-20 23:44] LABS: BEDSIDE GLUCOSE 443 MG/DL (70-105)
[2017-10-21] MEDS: HumaLOG INSULIN (NovoLOG) PER UNIT SC ×7 (00:20→21:17)
[2017-10-21 01:15] LABS: BEDSIDE GLUCOSE 389 MG/DL (70-105)
[2017-10-21] MEDS: IPRATROPIUM 0.5MG/ALBUTEROL 2.5MG INH SOL UD 3ML (DUONEB)(J7620) NEB ×4 (01:17→20:00)
[2017-10-21] MEDS: NORCO, ANEXSIA 5/325MG TABLET (HYDROcodone/ACETAMINOPHEN) PO (07:19)
[2017-10-21 08:05] LABS: BASO % 0.2 % (0.0-1.0); EOS % 0.1 % (0.0-3.0); HEMATOCRIT 34.4 % (36.0-47.0); HEMOGLOBIN 10.6 g/dl (12.0-15.5); IMMATURE GRANULOCYTE % 0.9 % (0-3.0); LYMPH # 3.8 10^3/uL (1.5-4.5); LYMPH % 21.1 % (24.0-44.0); MEAN CORPUSCULAR HEMOGLOBIN 27.7 pg (27.0-33.0); MEAN CORPUSCULAR HGB CONC 30.8 g/dl (32.0-36.5); MEAN CORPUSCULAR VOLUME 90.1 fl (80.0-96.0); MONO # 1.3 10^3/uL (0.0-0.8); MONO % 7.4 % (0.0-5.0); NEUTROPHILS # 12.5 10^3/uL (1.8-7.7); NEUTROPHILS % 70.3 % (36.0-66.0); PLATELET COUNT, AUTOMATED 312 10^3/uL (150-450); RED BLOOD COUNT 3.82 10^6/uL (4.00-5.40); RED CELL DISTRIBUTION WIDTH 16.4 % (11.5-14.5); WHITE BLOOD COUNT 17.8 10^3/uL (4.0-10.0)
[2017-10-21] MEDS: SYMBICORT 160/4.5MCG INHALER 6GM INH ×2 (08:36→21:09)
[2017-10-21 08:42] LABS: ANION GAP 9 MEQ/L (8-16); BLOOD UREA NITROGEN 28 MG/DL (7-18); CARBON DIOXIDE LEVEL 25 MEQ/L (21-32); CHLORIDE LEVEL 106 MEQ/L (98-107); CREATININE FOR GFR 0.83 MG/DL (0.55-1.30); GLOMERULAR FILTRATION RATE > 60.0 (>58); GLUCOSE, FASTING 166 MG/DL (70-100); POTASSIUM SERUM 3.7 MEQ/L (3.5-5.1); SODIUM LEVEL 140 MEQ/L (136-145)
[2017-10-21] MEDS: MELOXICAM (MOBIC) 7.5 MG TAB PO (09:00)
[2017-10-21] MEDS: predniSONE 5MG/5ML SOLN ORAL SYRINGE PO (09:03)
[2017-10-21] MEDS: LEVEMIR (INSULIN DETEMIR) 1 UNITS/0.01ML SC ×2 (09:04→18:05)
[2017-10-21] MEDS: ENOXAPARIN 40 MG/0.4 ML SYRINGE (J1650) SC (09:05)
[2017-10-21] MEDS: FERROUS GLUCONATE 324 MG TAB PO ×2 (09:05→21:18)
[2017-10-21] MEDS: DULoxetine 30 MG CAP (CYMBALTA) PO (09:05)
[2017-10-21] MEDS: GEMFIBROZIL 600 MG TAB PO (09:05)
[2017-10-21] MEDS: TOPIRAMATE (TopAMAX) 25 MG TAB PO ×2 (09:06→21:19)
[2017-10-21] MEDS: PANTOPRAZOLE 40MG TAB (PROTONIX) PO ×2 (09:06→21:19)
[2017-10-21] MEDS: LISINOPRIL 10 MG TAB PO (09:06)
[2017-10-21] MEDS: hydroCHLOROthiazide 25 MG TAB PO (09:06)
[2017-10-21] MEDS: busPIRone 10 MG TAB PO ×3 (09:06→21:18)
[2017-10-21] MEDS: LEVOTHYROXINE 25MCG TABLET (0.025MG) PO (09:06)
[2017-10-21] MEDS: GABAPENTIN 300 MG CAP PO ×3 (09:06→18:05)
[2017-10-21] MEDS: SODIUM CHLORIDE 0.9% INJ 10 ML SYR IV (09:07)
[2017-10-21] MEDS: guaiFENesin ER 600 MG TAB PO ×2 (09:10→21:19)
[2017-10-21 11:50] LABS: BEDSIDE GLUCOSE 229 MG/DL (70-105)
[2017-10-21 16:44] LABS: BEDSIDE GLUCOSE 509 MG/DL (70-105)
[2017-10-21 17:37] LABS: BEDSIDE GLUCOSE CONFIRMATION 500 MG/DL (LESS THAN 200)
[2017-10-21 20:13] LABS: BEDSIDE GLUCOSE 344 MG/DL (70-105)
[2017-10-21] MEDS: ARIPiprazole 10 MG TAB PO (21:18)
[2017-10-21] MEDS: FAMOTIDINE 20 MG TAB PO (21:18)
[2017-10-21] MEDS: VENLAFAXINE **XR** 75MG CAPSULE PO (21:18)
[2017-10-21] MEDS: CYCLOBENZAPRINE 10 MG TAB PO (21:19)
[2017-10-21] MEDS: MONTELUKAST 10 MG TAB PO (21:19)
[2017-10-21] MEDS: DOCUSATE SODIUM 100 MG CAP PO (21:19)
[2017-10-21] MEDS: traZODone 100 MG TAB PO (22:31)
[2017-10-22] MEDS: IPRATROPIUM 0.5MG/ALBUTEROL 2.5MG INH SOL UD 3ML (DUONEB)(J7620) NEB ×2 (02:00→08:00)
[2017-10-22 07:08] LABS: HEMATOCRIT 34.2 % (36.0-47.0); HEMOGLOBIN 10.5 g/dl (12.0-15.5); MEAN CORPUSCULAR HEMOGLOBIN 27.3 pg (27.0-33.0); MEAN CORPUSCULAR HGB CONC 30.7 g/dl (32.0-36.5); MEAN CORPUSCULAR VOLUME 89.1 fl (80.0-96.0); PLATELET COUNT, AUTOMATED 301 10^3/uL (150-450); RED BLOOD COUNT 3.84 10^6/uL (4.00-5.40); RED CELL DISTRIBUTION WIDTH 16.6 % (11.5-14.5); WHITE BLOOD COUNT 14.3 10^3/uL (4.0-10.0)
[2017-10-22 07:22] LABS: ADD MANUAL DIFFER YES; DIFF SLIDE NUMBER 47; POSITIVE DIFF POS FLAG
[2017-10-22 07:24] LABS: ANION GAP 7 MEQ/L (8-16); BLOOD UREA NITROGEN 36 MG/DL (7-18); CALCIUM LEVEL 9.3 MG/DL (8.5-10.1); CARBON DIOXIDE LEVEL 29 MEQ/L (21-32); CHLORIDE LEVEL 108 MEQ/L (98-107); CREATININE FOR GFR 0.87 MG/DL (0.55-1.30); GLOMERULAR FILTRATION RATE > 60.0 (>58); GLUCOSE, FASTING 79 MG/DL (70-100); POTASSIUM SERUM 3.3 MEQ/L (3.5-5.1); SODIUM LEVEL 144 MEQ/L (136-145)
[2017-10-22] MEDS: HumaLOG INSULIN (NovoLOG) PER UNIT SC ×2 (07:30→12:34)
[2017-10-22 08:04] LABS: ATYPICAL LYMPH 3 % (0-5); EOSINOPHILS 1 % (0-5); LYMPHOCYTES 33 % (16-52); MONOCYTES 9 % (0-8); NEUTROPHILS 54 % (35-75); PLATELET ESTIMATE NORMAL (NORMAL)
[2017-10-22 08:05] LABS: ANISOCYTOSIS 1+; HYPOCHROMASIA 1+; MICROCYTOSIS 1+
[2017-10-22] MEDS: LISINOPRIL 20 MG TAB PO (09:00)
[2017-10-22] MEDS: DULoxetine 30 MG CAP (CYMBALTA) PO (09:26)
[2017-10-22] MEDS: POTASSIUM CHLORIDE 10 MEQ SR TABLET PO (09:26)
[2017-10-22] MEDS: busPIRone 10 MG TAB PO (09:26)
[2017-10-22] MEDS: predniSONE 5MG/5ML SOLN ORAL SYRINGE PO (09:28)
[2017-10-22] MEDS: FERROUS GLUCONATE 324 MG TAB PO (09:28)
[2017-10-22] MEDS: MELOXICAM (MOBIC) 7.5 MG TAB PO (09:28)
[2017-10-22] MEDS: GEMFIBROZIL 600 MG TAB PO (09:28)
[2017-10-22] MEDS: GABAPENTIN 300 MG CAP PO ×2 (09:29→12:33)
[2017-10-22] MEDS: guaiFENesin ER 600 MG TAB PO (09:29)
[2017-10-22] MEDS: PANTOPRAZOLE 40MG TAB (PROTONIX) PO (09:29)
[2017-10-22] MEDS: LEVOTHYROXINE 25MCG TABLET (0.025MG) PO (09:29)
[2017-10-22] MEDS: TOPIRAMATE (TopAMAX) 25 MG TAB PO (09:29)
[2017-10-22] MEDS: LEVEMIR (INSULIN DETEMIR) 1 UNITS/0.01ML SC (09:30)
[2017-10-22] MEDS: ENOXAPARIN 40 MG/0.4 ML SYRINGE (J1650) SC (09:31)
[2017-10-22] MEDS: SODIUM CHLORIDE 0.9% INJ 10 ML SYR IV (09:32)
[2017-10-22] MEDS: SYMBICORT 160/4.5MCG INHALER 6GM INH (10:14)
[2017-10-22 11:44] LABS: BEDSIDE GLUCOSE 137 MG/DL (70-105)
[2017-10-22] MEDS ORDERED: traZODone 100 MG TAB PO (21:00)
== END 2017-10-22 14:50 | disposition home or self-care (01) | DRG 141 ==
LOC: M MS5PR 10-20 00:30 → M ED 15:13 → M PED 10-20 20:50 → M ED INP 23:31
DX: J45.901 Unspecified asthma with (acute) exacerbation (principal); E88.01 Alpha-1-antitrypsin deficiency; E11.9 Type 2 diabetes mellitus without complications; I10 Essential (primary) hypertension; F32.9 Major depressive disorder, single episode, unspecified; E03.9 Hypothyroidism, unspecified; D72.829 Elevated white blood cell count, unspecified; E87.6 Hypokalemia; G47.33 Obstructive sleep apnea (adult) (pediatric); M79.7 Fibromyalgia; G43.909 Migraine, unspecified, not intractable, without status migrainosus; F17.200 Nicotine dependence, unspecified, uncomplicated; Z79.899 Other long term (current) drug therapy; Z88.8 Allergy status to other drugs, medicaments and biological substances; E78.5 Hyperlipidemia, unspecified

== ENCOUNTER → 2017-10-27 | Outpatient (REF) | payer OTHER ==
[2017-10-30 14:16] LABS: HPV HYBRID CAPTURE II Negative (Negative)
== END ==
LOC: M LAB REF 09:03
DX: Z01.419 Encounter for gynecological examination (general) (routine) without abnormal findings (principal); Z11.51 Encounter for screening for human papillomavirus (HPV); R87.610 Atypical squamous cells of undetermined significance on cytologic smear of cervix (ASC-US)

== ENCOUNTER → 2017-10-27 | Outpatient (CLI) | payer OTHER | LOC: M SLEEP 19:42 | DX: G47.33 Obstructive sleep apnea (adult) (pediatric) (principal) | CPT/HCPCS: 95811 ==

== ENCOUNTER 2017-11-12 12:11 | Inpatient (IN) | payer OTHER ==
[2017-11-12] MEDS ORDERED: IPRATROPIUM 0.5MG/ALBUTEROL 2.5MG INH SOL UD 3ML (DUONEB)(J7620) NEB (12:30)
[2017-11-12] MEDS: IPRATROPIUM 0.5MG/ALBUTEROL 2.5MG INH SOL UD 3ML (DUONEB)(J7620) NEB ×6 (12:35→15:34)
[2017-11-12] MEDS: dexameTHASONE 20 MG/5 ML VIAL (J1100) IV (12:48)
[2017-11-12 12:55] LABS: ABG BASE EXCESS -3.4 (-2.0-2.0); ABG HCO3 20.2 MEQ/L (22.0-26.0); ABG O2 SATURATION 96.4 % (95.0-99.0); ABG PARTIAL PRESSURE CO2 31.9 mmHg (35.0-45.0); ABG PARTIAL PRESSURE O2 87.2 mmHg (75.0-100.0); ABG STANDARD HCO3 21.6 MEQ/L (22.0-26.0); ABG TOTAL CO2 21.2 MEQ/L (22.0-29.0); ABG pH (ARTERIAL) 7.419 UNITS (7.350-7.450)
[2017-11-12 13:06] LABS: HEMOGLOBIN 11.3 g/dl (12.0-15.5); MEAN CORPUSCULAR HEMOGLOBIN 27.8 pg (27.0-33.0); MEAN CORPUSCULAR HGB CONC 31.4 g/dl (32.0-36.5); MEAN CORPUSCULAR VOLUME 88.5 fl (80.0-96.0); PLATELET COUNT, AUTOMATED 391 10^3/uL (150-450); RED BLOOD COUNT 4.07 10^6/uL (4.00-5.40); RED CELL DISTRIBUTION WIDTH 16.1 % (11.5-14.5)
[2017-11-12 13:11] LABS: POSITIVE DIFF POS FLAG; POSITIVE MORPH POS FLAG; WHITE BLOOD COUNT 16.8 10^3/uL (4.0-10.0)
[2017-11-12 13:12] LABS: ADD MANUAL DIFFER YES; DIFF SLIDE NUMBER 226
[2017-11-12 13:25] LABS: ANION GAP 12 MEQ/L (8-16); BLOOD UREA NITROGEN 17 MG/DL (7-18); CALCIUM LEVEL 10.1 MG/DL (8.5-10.1); CARBON DIOXIDE LEVEL 24 MEQ/L (21-32); CHLORIDE LEVEL 103 MEQ/L (98-107); CREATININE FOR GFR 0.82 MG/DL (0.55-1.30); GLOMERULAR FILTRATION RATE > 60.0 (>58); GLUCOSE, FASTING 168 MG/DL (70-100); POTASSIUM SERUM 3.6 MEQ/L (3.5-5.1); SODIUM LEVEL 139 MEQ/L (136-145)
[2017-11-12 13:36] LABS: LACTIC ACID SEPSIS PROTOCOL 3.4 MMOL/L (0.4-2.0)
[2017-11-12 14:08] LABS: ATYPICAL LYMPH 46 % (0-5); BANDS 2 % (< 11); BASOPHILS 1 % (0-4); EOSINOPHILS 2 % (0-5); LYMPHOCYTES 5 % (16-52); MONOCYTES 6 % (0-8); NEUTROPHILS 38 % (35-75); PLATELET ESTIMATE NORMAL (NORMAL)
[2017-11-12] MEDS ORDERED: METOCLOPRAMIDE INJ 10MG/2ML VIAL (J2765) IV (17:15)
[2017-11-12] MEDS ORDERED: NORCO, ANEXSIA 5/325MG TABLET (HYDROcodone/ACETAMINOPHEN) PO ×2 (17:30)
[2017-11-12] MEDS: MELOXICAM (MOBIC) 7.5 MG TAB PO (21:02)
[2017-11-12] MEDS: ARIPiprazole 10 MG TAB PO (21:05)
[2017-11-12] MEDS: traZODone 100 MG TAB PO (21:05)
[2017-11-12] MEDS: SENOKOT S TAB PO (21:05)
[2017-11-12] MEDS: busPIRone 10 MG TAB PO (21:05)
[2017-11-12] MEDS: FERROUS GLUCONATE 324 MG TAB PO (21:05)
[2017-11-12] MEDS: GABAPENTIN 300 MG CAP PO (21:05)
[2017-11-12] MEDS: PANTOPRAZOLE 40MG TAB (PROTONIX) PO (21:09)
[2017-11-12] MEDS: TOPIRAMATE (TopAMAX) 25 MG TAB PO (21:12)
[2017-11-12] MEDS: MONTELUKAST 10 MG TAB PO (21:12)
[2017-11-12] MEDS: methylPREDNISolone INJ 40 MG/1 ML VIAL (J2920) IV (21:15)
[2017-11-12] MEDS: NS 1,000 ML IV (21:15)
[2017-11-12] MEDS: SYMBICORT 160/4.5MCG INHALER 6GM INH (21:32)
[2017-11-12] MEDS: ALBUTEROL SULFATE 2.5 MG/0.5 ML INH NEB SOLN NEB (21:32)
[2017-11-12] MEDS ORDERED: GLUCOSE 4 GM CHEW TABLET PO (22:30)
[2017-11-12] MEDS ORDERED: DEXTROSE 50% 50 ML SYRINGE IV (22:30)
[2017-11-12] MEDS ORDERED: GLUCAGON FOR INJ 1 MG VIAL (J1610) SC (22:30)
[2017-11-12 23:01] LABS: BEDSIDE GLUCOSE 390 MG/DL (70-105)
[2017-11-12] MEDS: LEVEMIR (INSULIN DETEMIR) 1 UNITS/0.01ML SC (23:39)
[2017-11-12] MEDS: HumaLOG INSULIN (NovoLOG) PER UNIT SC (23:40)
[2017-11-13] MEDS: NS 1,000 ML IV ×2 (02:00→06:23)
[2017-11-13] MEDS: IPRATROPIUM 0.5MG/ALBUTEROL 2.5MG INH SOL UD 3ML (DUONEB)(J7620) NEB (03:02)
[2017-11-13] MEDS: ALBUTEROL SULFATE 2.5 MG/0.5 ML INH NEB SOLN NEB (03:04)
[2017-11-13] MEDS: LEVOTHYROXINE 25MCG TABLET (0.025MG) PO (06:23)
[2017-11-13] MEDS: methylPREDNISolone INJ 40 MG/1 ML VIAL (J2920) IV (06:23)
[2017-11-13] MEDS ORDERED: PILL CRUSHER/CUTTER 1 EACH XX (06:45)
[2017-11-13] MEDS: tiZANidine 4 MG TAB PO (06:47)
[2017-11-13 07:51] LABS: BASO % 0.2 % (0.0-1.0); HEMATOCRIT 32.4 % (36.0-47.0); HEMOGLOBIN 9.9 g/dl (12.0-15.5); IMMATURE GRANULOCYTE % 0.8 % (0-3.0); LYMPH % 18.3 % (24.0-44.0); MEAN CORPUSCULAR HEMOGLOBIN 27.3 pg (27.0-33.0); MEAN CORPUSCULAR HGB CONC 30.6 g/dl (32.0-36.5); MEAN CORPUSCULAR VOLUME 89.3 fl (80.0-96.0); MONO # 0.5 10^3/uL (0.0-0.8); NEUTROPHILS # 8.2 10^3/uL (1.8-7.7); NEUTROPHILS % 75.7 % (36.0-66.0); PLATELET COUNT, AUTOMATED 319 10^3/uL (150-450); RED BLOOD COUNT 3.63 10^6/uL (4.00-5.40); WHITE BLOOD COUNT 10.8 10^3/uL (4.0-10.0)
[2017-11-13 08:03] LABS: ANION GAP 10 MEQ/L (8-16); BLOOD UREA NITROGEN 17 MG/DL (7-18); CARBON DIOXIDE LEVEL 22 MEQ/L (21-32); CHLORIDE LEVEL 112 MEQ/L (98-107); CREATININE FOR GFR 0.68 MG/DL (0.55-1.30); GLOMERULAR FILTRATION RATE > 60.0 (>58); GLUCOSE, FASTING 272 MG/DL (70-100); POTASSIUM SERUM 4.1 MEQ/L (3.5-5.1); SODIUM LEVEL 144 MEQ/L (136-145)
[2017-11-13 08:05] LABS: LACTIC ACID SEPSIS PROTOCOL 1.2 MMOL/L (0.4-2.0)
[2017-11-13] MEDS: VENLAFAXINE 37.5 MG TAB PO (08:47)
[2017-11-13] MEDS: SENOKOT S TAB PO (08:47)
[2017-11-13] MEDS: busPIRone 10 MG TAB PO (08:47)
[2017-11-13] MEDS: DULoxetine 30 MG CAP (CYMBALTA) PO (08:47)
[2017-11-13] MEDS: GABAPENTIN 300 MG CAP PO (08:48)
[2017-11-13] MEDS: LISINOPRIL 10 MG TAB PO (08:48)
[2017-11-13] MEDS: SYMBICORT 160/4.5MCG INHALER 6GM INH (08:48)
[2017-11-13] MEDS: PANTOPRAZOLE 40MG TAB (PROTONIX) PO (08:48)
[2017-11-13] MEDS: TOPIRAMATE (TopAMAX) 25 MG TAB PO (08:48)
[2017-11-13] MEDS: GEMFIBROZIL 600 MG TAB PO (08:49)
[2017-11-13] MEDS: FERROUS GLUCONATE 324 MG TAB PO (08:49)
[2017-11-13] MEDS: ENOXAPARIN 40 MG/0.4 ML SYRINGE (J1650) SC (08:49)
[2017-11-13] MEDS: LEVEMIR (INSULIN DETEMIR) 1 UNITS/0.01ML SC (08:50)
[2017-11-13] MEDS: HumaLOG INSULIN (NovoLOG) PER UNIT SC (08:51)
== END 2017-11-13 10:25 | disposition home or self-care (01) | DRG 141 ==
LOC: M ED 12:11 → M ED INP 17:08 → M PED 22:48
DX: J45.901 Unspecified asthma with (acute) exacerbation (principal); E87.2 Acidosis; E11.40 Type 2 diabetes mellitus with diabetic neuropathy, unspecified; E88.01 Alpha-1-antitrypsin deficiency; G47.33 Obstructive sleep apnea (adult) (pediatric); F41.9 Anxiety disorder, unspecified; F32.9 Major depressive disorder, single episode, unspecified; F43.10 Post-traumatic stress disorder, unspecified; I10 Essential (primary) hypertension; E03.9 Hypothyroidism, unspecified; E66.9 Obesity, unspecified; M79.7 Fibromyalgia; E78.5 Hyperlipidemia, unspecified; K21.9 Gastro-esophageal reflux disease without esophagitis; G43.909 Migraine, unspecified, not intractable, without status migrainosus; D50.9 Iron deficiency anemia, unspecified; Z90.49 Acquired absence of other specified parts of digestive tract; Z87.891 Personal history of nicotine dependence; Z79.4 Long term (current) use of insulin; Z79.899 Other long term (current) drug therapy; Z88.8 Allergy status to other drugs, medicaments and biological substances

== ENCOUNTER 2017-11-18 15:48 | Emergency (ER) | payer OTHER ==
[2017-11-18] MEDS: dexameTHASONE 4 MG/ML 1ML VIAL (J1100) PO (17:00)
[2017-11-18] MEDS: ALBUTEROL SULFATE 2.5 MG/0.5 ML INH NEB SOLN NEB ×3 (17:12→18:20)
[2017-11-18 17:24] LABS: ABG BASE EXCESS -5.6 (-2.0-2.0); ABG HCO3 19.1 MEQ/L (22.0-26.0); ABG O2 SATURATION 95.4 % (95.0-99.0); ABG PARTIAL PRESSURE CO2 34.9 mmHg (35.0-45.0); ABG PARTIAL PRESSURE O2 81.2 mmHg (75.0-100.0); ABG STANDARD HCO3 19.8 MEQ/L (22.0-26.0); ABG TOTAL CO2 20.2 MEQ/L (22.0-29.0); ABG pH (ARTERIAL) 7.356 UNITS (7.350-7.450)
== END 2017-11-18 19:02 | disposition home or self-care (01) ==
LOC: M ED 15:48
DX: J45.901 Unspecified asthma with (acute) exacerbation (principal); I10 Essential (primary) hypertension; E07.9 Disorder of thyroid, unspecified; M79.7 Fibromyalgia; Z79.899 Other long term (current) drug therapy; Z79.82 Long term (current) use of aspirin; Z79.890 Hormone replacement therapy; Z79.4 Long term (current) use of insulin; Z88.8 Allergy status to other drugs, medicaments and biological substances; Z87.891 Personal history of nicotine dependence
CPT/HCPCS: J1100

== ENCOUNTER 2017-12-17 10:41 | Observation (INO) | payer OTHER ==
[2017-12-17 11:24] LABS: HEMATOCRIT 39.4 % (36.0-47.0); HEMOGLOBIN 12.7 g/dl (12.0-15.5); MEAN CORPUSCULAR HEMOGLOBIN 27.7 pg (27.0-33.0); MEAN CORPUSCULAR HGB CONC 32.2 g/dl (32.0-36.5); PLATELET COUNT, AUTOMATED 386 10^3/uL (150-450); RED BLOOD COUNT 4.58 10^6/uL (4.00-5.40); RED CELL DISTRIBUTION WIDTH 15.9 % (11.5-14.5)
[2017-12-17 11:27] LABS: ADD MANUAL DIFFER YES; DIFF SLIDE NUMBER 229; POSITIVE DIFF POS FLAG; WHITE BLOOD COUNT 13.2 10^3/uL (4.0-10.0)
[2017-12-17] MEDS: IPRATROPIUM 0.5MG/ALBUTEROL 2.5MG INH SOL UD 3ML (DUONEB)(J7620) NEB ×4 (11:40→15:04)
[2017-12-17 12:09] LABS: EOSINOPHILS 1 % (0-5); LYMPHOCYTES 42 % (16-52); MONOCYTES 6 % (0-8); NEUTROPHILS 51 % (35-75); PLATELET ESTIMATE NORMAL (NORMAL)
[2017-12-17 12:20] LABS: ANION GAP 12 MEQ/L (8-16); BLOOD UREA NITROGEN 15 MG/DL (7-18); CALCIUM LEVEL 10.4 MG/DL (8.5-10.1); CARBON DIOXIDE LEVEL 22 MEQ/L (21-32); CHLORIDE LEVEL 103 MEQ/L (98-107); CREATININE FOR GFR 0.99 MG/DL (0.55-1.30); GLOMERULAR FILTRATION RATE > 60.0 (>58); GLUCOSE, FASTING 168 MG/DL (70-100); POTASSIUM SERUM 3.2 MEQ/L (3.5-5.1); SODIUM LEVEL 137 MEQ/L (136-145); THYROID STIMULATING HORMONE 0.676 uIU/ML (0.358-3.740); THYROXINE (T4) 11.7 UG/DL (4.5-12.0)
[2017-12-17] MEDS: POTASSIUM CHLORIDE 10 MEQ SR TABLET PO (13:35)
[2017-12-17 16:07] LABS: D-DIMER QUANT 395.1 ng/ml (<500)
[2017-12-17] MEDS ORDERED: ACETAMINOPHEN TAB 650MG DOSE (2X325MG) PO (20:00)
[2017-12-17] MEDS ORDERED: DEXTROSE 50% 50 ML SYRINGE IV (20:15)
[2017-12-17] MEDS ORDERED: GLUCAGON FOR INJ 1 MG VIAL (J1610) SC (20:15)
[2017-12-17] MEDS ORDERED: IPRATROPIUM 0.5MG/ALBUTEROL 2.5MG INH SOL UD 3ML (DUONEB)(J7620) INH (20:15)
[2017-12-17] MEDS ORDERED: GLUCOSE 4 GM CHEW TABLET PO (20:15)
[2017-12-17] MEDS ORDERED: predniSONE 20 MG TAB PO (20:15)
[2017-12-17] MEDS ORDERED: FAMOTIDINE 20 MG TAB PO (20:15)
[2017-12-17 20:50] LABS: TOTAL 25(OH) VITAMIN D 24.2 NG/ML (30.0-100.0)
[2017-12-18 00:07] LABS: BEDSIDE GLUCOSE 304 MG/DL (70-105)
[2017-12-18] MEDS: prednisoLONE (PRELONE) 15MG/5ML SYRUP UDC PO ×2 (00:26→08:23)
[2017-12-18] MEDS: ARIPiprazole 10 MG TAB PO (00:27)
[2017-12-18] MEDS: busPIRone 10 MG TAB PO ×2 (00:27→08:21)
[2017-12-18] MEDS: DOCUSATE SODIUM 100 MG CAP PO (00:28)
[2017-12-18] MEDS: traZODone 100 MG TAB PO (00:28)
[2017-12-18] MEDS: PANTOPRAZOLE 40MG TAB (PROTONIX) PO ×2 (00:28→08:20)
[2017-12-18] MEDS: MONTELUKAST 10 MG TAB PO (00:28)
[2017-12-18] MEDS: FERROUS GLUCONATE 324 MG TAB PO ×2 (00:29→08:20)
[2017-12-18] MEDS: TOPIRAMATE (TopAMAX) 25 MG TAB PO ×2 (00:29→08:21)
[2017-12-18] MEDS: VENLAFAXINE **XR** 75MG CAPSULE PO (00:30)
[2017-12-18] MEDS: LEVEMIR (INSULIN DETEMIR) 1 UNITS/0.01ML SC ×2 (00:31→09:54)
[2017-12-18] MEDS: HumaLOG INSULIN (NovoLOG) PER UNIT SC ×3 (00:31→11:55)
[2017-12-18] MEDS: SYMBICORT 160/4.5MCG INHALER 6GM INH ×2 (01:41→07:36)
[2017-12-18] MEDS: LEVOTHYROXINE 25MCG TABLET (0.025MG) PO (06:45)
[2017-12-18 08:11] LABS: BEDSIDE GLUCOSE 317 MG/DL (70-105)
[2017-12-18] MEDS: MELOXICAM (MOBIC) 7.5 MG TAB PO (08:21)
[2017-12-18] MEDS: GEMFIBROZIL 600 MG TAB PO (08:21)
[2017-12-18] MEDS: GABAPENTIN 300 MG CAP PO (08:22)
[2017-12-18] MEDS: DULoxetine 30 MG CAP (CYMBALTA) PO (08:22)
[2017-12-18] MEDS: LISINOPRIL 10 MG TAB PO (08:22)
[2017-12-18] MEDS: ENOXAPARIN 40 MG/0.4 ML SYRINGE (J1650) SC (08:23)
[2017-12-18] MEDS: NORCO, ANEXSIA 5/325MG TABLET (HYDROcodone/ACETAMINOPHEN) PO (11:43)
[2017-12-18 11:48] LABS: BEDSIDE GLUCOSE 308 MG/DL (70-105)
== END 2017-12-18 15:15 | disposition home or self-care (01) ==
LOC: M ED 10:41 → M ED INP 19:52 → M PED 23:35
PROVIDERS: Hospitalist
DX: J45.901 Unspecified asthma with (acute) exacerbation (principal); G47.33 Obstructive sleep apnea (adult) (pediatric); E66.01 Morbid (severe) obesity due to excess calories; E11.9 Type 2 diabetes mellitus without complications; F32.9 Major depressive disorder, single episode, unspecified; F41.9 Anxiety disorder, unspecified; M79.7 Fibromyalgia; G89.29 Other chronic pain; E88.01 Alpha-1-antitrypsin deficiency; Z79.899 Other long term (current) drug therapy
CPT/HCPCS: J1650

== ENCOUNTER 2018-01-11 18:13 | Emergency (ER) | payer OTHER ==
[2018-01-11] MEDS: NS 1,000 ML IV (19:06)
[2018-01-11] MEDS: diphenhydrAMINE INJ 50MG/ML VIAL (J1200) IV (19:07)
[2018-01-11] MEDS: KETOROLAC 30 MG/ML VIAL (J1885) IV (19:07)
[2018-01-11] MEDS: TRIMETHOBENZAMIDE HCL INJ 200 MG/2 ML VIAL (J3250) IM (19:09)
[2018-01-11] MEDS: MORPHINE 2 MG/ML 1ML SYRINGE (J2270) IV (20:06)
[2018-01-11] MEDS: methylPREDNISolone INJ 125 MG/2 ML VIAL (J2930) IV (20:30)
[2018-01-11] MEDS: PERCOCET 5MG/325MG TAB PO (21:19)
[2018-01-11] MEDS: MAG SULF 1GM/100ML (MAG RUN) 1 GM in APPROPRIATE DILUENT 1 EA IV (21:39)
[2018-01-11] MEDS: VALPROIC ACID 250 MG CAP PO (22:45)
== END 2018-01-11 23:07 | disposition home or self-care (01) ==
LOC: M ED 18:13
DX: G43.109 Migraine with aura, not intractable, without status migrainosus (principal); I50.9 Heart failure, unspecified; I11.0 Hypertensive heart disease with heart failure; E78.00 Pure hypercholesterolemia, unspecified; E11.40 Type 2 diabetes mellitus with diabetic neuropathy, unspecified; K21.9 Gastro-esophageal reflux disease without esophagitis; E03.9 Hypothyroidism, unspecified; E88.01 Alpha-1-antitrypsin deficiency; F41.9 Anxiety disorder, unspecified; F32.9 Major depressive disorder, single episode, unspecified; F43.10 Post-traumatic stress disorder, unspecified; Z87.891 Personal history of nicotine dependence; Z88.8 Allergy status to other drugs, medicaments and biological substances; Z79.899 Other long term (current) drug therapy; Z79.51 Long term (current) use of inhaled steroids; Z79.4 Long term (current) use of insulin
CPT/HCPCS: J1200

== ENCOUNTER → 2018-02-24 | Outpatient (CLI) | payer OTHER ==
[2018-02-24 12:47] LABS: BASO # 0.1 10^3/uL (0.0-0.2); BASO % 0.8 % (0.0-1.0); EOS # 0.4 10^3/uL (0.0-0.50); EOS % 5.2 % (0.0-3.0); HEMATOCRIT 37.6 % (36.0-47.0); HEMOGLOBIN 11.9 g/dl (12.0-15.5); IMMATURE GRANULOCYTE % 0.4 % (0-3.0); LYMPH # 3.8 10^3/uL (1.5-4.5); LYMPH % 45.5 % (24.0-44.0); MEAN CORPUSCULAR HEMOGLOBIN 28.9 pg (27.0-33.0); MEAN CORPUSCULAR HGB CONC 31.6 g/dl (32.0-36.5); MEAN CORPUSCULAR VOLUME 91.3 fl (80.0-96.0); MONO # 0.6 10^3/uL (0.0-0.8); NEUTROPHILS # 3.4 10^3/uL (1.8-7.7); NEUTROPHILS % 41.1 % (36.0-66.0); PLATELET COUNT, AUTOMATED 290 10^3/uL (150-450); RED BLOOD COUNT 4.12 10^6/uL (4.00-5.40); RED CELL DISTRIBUTION WIDTH 14.3 % (11.5-14.5); WHITE BLOOD COUNT 8.3 10^3/uL (4.0-10.0)
[2018-02-24 13:06] LABS: ERYTHROCYTE SEDIMENTATION RATE 46 mm/hr (0-20)
[2018-02-24 13:19] LABS: ALBUMIN 3.5 GM/DL (3.2-5.2); ALKALINE PHOSPHATASE 215 U/L (45-117); ALT/SGPT 75 U/L (12-78); ANION GAP 5 MEQ/L (8-16); AST/SGOT 39 U/L (7-37); BILIRUBIN,TOTAL 0.2 MG/DL (0.2-1.0); BLOOD UREA NITROGEN 22 MG/DL (7-18); CALCIUM LEVEL 8.8 MG/DL (8.5-10.1); CARBON DIOXIDE LEVEL 30 MEQ/L (21-32); CHLORIDE LEVEL 102 MEQ/L (98-107); CREATININE FOR GFR 0.64 MG/DL (0.55-1.30); GLOMERULAR FILTRATION RATE > 60.0 (>58); GLUCOSE, FASTING 174 MG/DL (70-100); RHEUMATOID FACTOR QUANT < 10.0 IU/ML (<15.0); SODIUM LEVEL 137 MEQ/L (136-145); THYROID STIMULATING HORMONE 0.629 uIU/ML (0.358-3.740); TOTAL PROTEIN 7.4 GM/DL (6.4-8.2)
[2018-02-25 14:21] LABS: ANTINUCLEAR ANTIBODIES DIRECT Negative (Negative)
== END ==
LOC: M LAB 11:33
DX: R51 Headache (principal); M54.2 Cervicalgia
CPT/HCPCS: 84443

== ENCOUNTER → 2018-02-24 | Outpatient (CLI) | payer OTHER ==
[2018-02-24 12:48] LABS: BASO # 0.1 10^3/uL (0.0-0.2); BASO % 0.8 % (0.0-1.0); EOS # 0.4 10^3/uL (0.0-0.50); EOS % 5.1 % (0.0-3.0); HEMATOCRIT 37.3 % (36.0-47.0); HEMOGLOBIN 11.8 g/dl (12.0-15.5); IMMATURE GRANULOCYTE % 0.4 % (0-3.0); LYMPH # 3.8 10^3/uL (1.5-4.5); LYMPH % 47.3 % (24.0-44.0); MEAN CORPUSCULAR HEMOGLOBIN 28.7 pg (27.0-33.0); MEAN CORPUSCULAR HGB CONC 31.6 g/dl (32.0-36.5); MEAN CORPUSCULAR VOLUME 90.8 fl (80.0-96.0); MONO # 0.5 10^3/uL (0.0-0.8); MONO % 6.4 % (0.0-5.0); NEUTROPHILS # 3.2 10^3/uL (1.8-7.7); PLATELET COUNT, AUTOMATED 281 10^3/uL (150-450); RED BLOOD COUNT 4.11 10^6/uL (4.00-5.40); RED CELL DISTRIBUTION WIDTH 14.3 % (11.5-14.5)
[2018-02-24 13:07] LABS: ERYTHROCYTE SEDIMENTATION RATE 46 mm/hr (0-20)
[2018-02-24 13:13] LABS: ALBUMIN 3.4 GM/DL (3.2-5.2); ANION GAP 8 MEQ/L (8-16); BLOOD UREA NITROGEN 24 MG/DL (7-18); CALCIUM LEVEL 8.8 MG/DL (8.5-10.1); CARBON DIOXIDE LEVEL 29 MEQ/L (21-32); CHLORIDE LEVEL 103 MEQ/L (98-107); CHOLESTEROL LEVEL 207 MG/DL (<200); CHOLESTEROL RISK RATIO 4.928 (<5); CREATININE FOR GFR 0.69 MG/DL (0.55-1.30); GLOMERULAR FILTRATION RATE > 60.0 (>58); GLUCOSE, FASTING 169 MG/DL (70-100); GLUCOSE,RANDOM 169 MG/DL (LESS THAN 200); HDL CHOLESTEROL 42 MG/DL (>40); LDL CHOLESTEROL 140 MG/DL (<100); NON-HDL-C 165 MG/DL; PHOSPHORUS LEVEL 3.5 MG/DL (2.5-4.9); RHEUMATOID FACTOR QUANT < 10.0 IU/ML (<15.0); SODIUM LEVEL 140 MEQ/L (136-145); TRIGLYCERIDES LEVEL 125 MG/DL (<150)
[2018-02-24 13:32] LABS: ESTIMATED AVERAGE GLUCOSE 275 MG/DL (60-110); HEMOGLOBIN A1c 11.2 %
[2018-02-26 00:06] LABS: CYCLIC CITRULLINATED PEPTIDE 5 units (0-19)
[2018-02-26 00:06] LABS: ANA (HEP2) Negative (.)
== END ==
LOC: M LAB 11:37
DX: M25.50 Pain in unspecified joint (principal); E78.5 Hyperlipidemia, unspecified; E11.9 Type 2 diabetes mellitus without complications
CPT/HCPCS: 82947

== ENCOUNTER 2018-03-14 09:55 | Emergency (ER) | payer OTHER ==
[~2018-03-14] VITALS: Ht 162.6 cm; Wt 97.7 kg
[~2018-03-14 09:55] MED LIST changes: +ARTI99.0 OU; +AZIT-12 PO; +BASA100I SC; +COLA100C5 PO; +DIAZ5TAB PO; +DICL13PA TOP; -DOXY-278 PO; +DOXY-350 PO; +DULO1CAP2 PO; +FERR325T16 PO; -GABA-282 PO; -GABA-283 PO; +GABA-843 PO; +GABA-845 PO; -GEMF600T PO; +GEMF600T5 PO; +HYDR-3713 PO; +IBUP-1022 PO; +IBUP1TAB6 PO; +IBUPOTC PO; +IMIT20SP; +INSURSD SC; +IPRA0.00 INH; -IPRASOL4 INH; +KETO10TAB PO; +MELO15TA28 PO; -MELO15TA4 PO; +METO10TA2 PO; +NAPR-885 PO; +NAPR1TAB86 PO; +NORCOTAB PO; +PRED10TA2 PO; +PRED15EL PO; +PRED5CON PO; +PRED5SOL10 PO; +RANI150T PO; +REGL10TA6 PO; +ROBA500T PO; +SUMA50TA2 PO; +TIZA2TA PO; +TOPA1TAB PO; +TOPI25TA10 PO; -TRAZ-136 PO; +TRAZ-163 PO; +VALI5TAB PO; +VENL37.52 PO; +VENL75CA47 PO; +ZITH500T PO; +ZOFR4TAB14 PO
[2018-03-14 09:56] VITALS: BP 137/101
[2018-03-14] MEDS ORDERED: KETOROLAC TROMETHAMINE 10 MG TAB PO ONE (10:45)
--- NOTE | 2018-03-14 10:51 | REP ---
Clinical: Left shoulder pain. Technique: Internal rotation, external rotation, and Y view. Findings: No acute fracture or dislocation. The acromioclavicular and glenohumeral joints are intact. No periarticular calcifications or degenerative changes are appreciated. Sub acromial space is normal. Surrounding soft tissues are unremarkable. Impression: Normal left shoulder radiographs. Electronically Signed by Isidoro Jose MD 03/14/2018 10:43 A
[2018-03-14] MEDS ORDERED: KETO10TAB PO (10:59)
[2018-03-14] MEDS ORDERED: ACET30TAB PO ×2 (10:59→11:00)
[2018-03-14] MEDS ORDERED: SUCR1SS PO (22:01)
== END 2018-03-14 11:09 | disposition home or self-care (01) ==
LOC: M ED 09:55
DX: S46.912A Strain of unspecified muscle, fascia and tendon at shoulder and upper arm level, left arm, initial encounter (principal); X50.0XXA Overexertion from strenuous movement or load, initial encounter; Y92.099 Unspecified place in other non-institutional residence as the place of occurrence of the external cause; Y93.89 Activity, other specified; Y99.9 Unspecified external cause status; I50.9 Heart failure, unspecified; I10 Essential (primary) hypertension; F41.9 Anxiety disorder, unspecified; F32.9 Major depressive disorder, single episode, unspecified; F43.10 Post-traumatic stress disorder, unspecified; M79.7 Fibromyalgia; G43.909 Migraine, unspecified, not intractable, without status migrainosus; G62.9 Polyneuropathy, unspecified; K21.9 Gastro-esophageal reflux disease without esophagitis; Z87.891 Personal history of nicotine dependence; Z79.4 Long term (current) use of insulin; Z79.899 Other long term (current) drug therapy; Z88.8 Allergy status to other drugs, medicaments and biological substances

== ENCOUNTER 2018-03-14 17:58 | Emergency (ER) | payer OTHER ==
[~2018-03-14] VITALS: Ht 162.6 cm; Wt 97.7 kg
[~2018-03-14 17:58] MED LIST changes: +ACET30TAB PO
[2018-03-14] MEDS ORDERED: KETOROLAC 30 MG/ML VIAL (J1885) IV ONE (19:00)
[2018-03-14] MEDS ORDERED: NS 1,000 ML IV ONE (19:00)
[2018-03-14 19:44] LABS: BASO # 0.1 10^3/uL (0.0-0.2); BASO % 0.4 % (0.0-1.0); EOS # 0.4 10^3/uL (0.0-0.50); EOS % 2.6 % (0.0-3.0); HEMATOCRIT 37.5 % (36.0-47.0); LYMPH % 27.6 % (24.0-44.0); MEAN CORPUSCULAR HEMOGLOBIN 29.5 pg (27.0-33.0); MEAN CORPUSCULAR VOLUME 92.1 fl (80.0-96.0); MONO % 6.5 % (0.0-5.0); NEUTROPHILS % 62.3 % (36.0-66.0); PLATELET COUNT, AUTOMATED 338 10^3/uL (150-450); RED BLOOD COUNT 4.07 10^6/uL (4.00-5.40); WHITE BLOOD COUNT 14.5 10^3/uL (4.0-10.0)
[2018-03-14 20:02] LABS: ALBUMIN 3.4 GM/DL (3.2-5.2); ALT/SGPT 66 U/L (12-78); AMYLASE 47 U/L (25-115); BILIRUBIN,DIRECT < 0.1 MG/DL (0.0-0.2); BILIRUBIN,TOTAL 0.2 MG/DL (0.2-1.0); BLOOD UREA NITROGEN 30 MG/DL (7-18); CARBON DIOXIDE LEVEL 25 MEQ/L (21-32); CHLORIDE LEVEL 103 MEQ/L (98-107); CK-MB VALUE MASS < 1.0 NG/ML (<3.6); CPK CREATINE PHOSPHOKINASE 35 U/L (26-192); CREATININE FOR GFR 1.09 MG/DL (0.55-1.30); GLOMERULAR FILTRATION RATE 57.8 (>58); GLUCOSE, FASTING 240 MG/DL (70-100); LIPASE 214 U/L (73-393); MB/CK RELATIVE INDEX 2.86 (< OR =4); POTASSIUM SERUM 3.7 MEQ/L (3.5-5.1); SODIUM LEVEL 139 MEQ/L (136-145); TOTAL PROTEIN 7.3 GM/DL (6.4-8.2); TROPONIN I < 0.02 NG/ML (< 0.10)
[2018-03-14] MEDS ORDERED: ISOVUE-370 76% 100ML VIAL (Q9967) As Ordered ONE (20:22)
--- NOTE | 2018-03-14 20:54 | REP ---
Clinical: Acute upper abdominal pain with leukocytosis. Technique: Axial contrast enhanced images from the lung bases to the pubic symphysis using 100 ml Isovue 370 intravenous contrast material with coronal and sagittal re-formations. Comparison: 06/12/2017. Findings: Lung bases are clear. Liver, spleen, pancreas, bilateral adrenal glands and kidneys are normal. Evidence for prior cholecystectomy noted. The enteric system is without obstruction or acute inflammatory process. Normal terminal ileum and cecum identified with evidence for prior appendectomy. Pelvis demonstrates collapsed normal bladder and age-appropriate uterus/adnexa. Cystic changes to the left ovary consistent with physiologic change. No pelvic fluid or ascites. No free air. No adenopathy. Abdominal aorta and vasculature without aneurysm or dissection. The osseous structures are relatively intact. There is a chronic tubular lucency within the medullary space of the proximal left femur which may represent sequelae of old fracture fixation or chronic changes related to old infection such as Edwin's abscess. This likely represents a chronic and incidental finding. Impression: 1. Evidence for prior cholecystectomy and appendectomy. 2. No acute abdominopelvic pathology appreciated. Specifically, no ascites, focal inflammatory stranding or adenopathy appreciated. Electronically Signed by Isidoro Jose MD 03/14/2018 08:45 P
[2018-03-14] MEDS ORDERED: GI COCKTAIL 50ML BTL(HYOSCYAMINE/MAALOX/LIDOCAINE VISCOUS)(1:3:1) PO ONE (21:15)
[2018-03-14] MEDS ORDERED: FAMOTIDINE IV BAG 20 MG in APPROPRIATE DILUENT 1 EA IV ONE (21:15)
[2018-03-14] MEDS ORDERED: ONDANSETRON 4MG/2ML VIAL (J2405) As Ordered ONE (21:22)
[2018-03-14] MEDS ORDERED: ONDANSETRON 4MG/2ML VIAL (J2405) IV ONE (21:30)
[2018-03-14] MEDS ORDERED: SUCRALFATE SUSP 1GM/10ML UD PO ONE (22:00)
[2018-03-14] MEDS ORDERED: SUCR1SS PO (22:01)
[2018-03-14 22:23] VITALS: BP 125/76
--- NOTE | 2018-03-15 17:24 | ECGEPIP ---
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
== END 2018-03-14 22:21 | disposition home or self-care (01) ==
LOC: M ED 17:58
DX: K29.70 Gastritis, unspecified, without bleeding (principal); R00.0 Tachycardia, unspecified; I50.9 Heart failure, unspecified; I10 Essential (primary) hypertension; J45.909 Unspecified asthma, uncomplicated; E88.01 Alpha-1-antitrypsin deficiency; K21.9 Gastro-esophageal reflux disease without esophagitis; M79.7 Fibromyalgia; Z79.4 Long term (current) use of insulin; Z79.899 Other long term (current) drug therapy; Z88.8 Allergy status to other drugs, medicaments and biological substances
CPT/HCPCS: 74177; 80048; 80076; 81001; 82150; 82550; 82553; 83690; 85025; 93005; 96365; 96374; 96375; 99284; J1885; J2405; Q9967

== ENCOUNTER 2018-03-20 15:45 | Emergency (ER) | payer OTHER ==
[~2018-03-20] VITALS: Ht 162.6 cm; Wt 97.7 kg
[~2018-03-20 15:45] MED LIST changes: +SUCR1SS PO
[2018-03-20] MEDS ORDERED: PANTOPRAZOLE 40MG INJ (PROTONIX) (C9113) IV ONE (17:00)
[2018-03-20] MEDS ORDERED: GI COCKTAIL 50ML BTL(HYOSCYAMINE/MAALOX/LIDOCAINE VISCOUS)(1:3:1) PO ONE (17:00)
[2018-03-20] MEDS ORDERED: NS 1,000 ML IV ONE (17:00)
[2018-03-20 17:45] LABS: BASO # 0.1 10^3/uL (0.0-0.2); BASO % 0.8 % (0.0-1.0); EOS # 0.7 10^3/uL (0.0-0.50); EOS % 6.4 % (0.0-3.0); HEMATOCRIT 36.3 % (36.0-47.0); HEMOGLOBIN 11.6 g/dl (12.0-15.5); LYMPH # 3.9 10^3/uL (1.5-4.5); LYMPH % 36.4 % (24.0-44.0); MEAN CORPUSCULAR HEMOGLOBIN 29.2 pg (27.0-33.0); MEAN CORPUSCULAR VOLUME 91.4 fl (80.0-96.0); MONO # 0.8 10^3/uL (0.0-0.8); MONO % 7.7 % (0.0-5.0); NEUTROPHILS # 5.2 10^3/uL (1.8-7.7); NEUTROPHILS % 48.3 % (36.0-66.0); PLATELET COUNT, AUTOMATED 290 10^3/uL (150-450); RED BLOOD COUNT 3.97 10^6/uL (4.00-5.40); WHITE BLOOD COUNT 10.6 10^3/uL (4.0-10.0)
--- NOTE | 2018-03-20 18:14 | REP ---
ABDOMEN FLAT UPRIGHT PA CHEST, FOUR VIEWS: HISTORY: Abdominal pain. A small amount of air is present in the small and large intestine. There are no air fluid levels or dilated loops of intestine. There is no pneumoperitoneum. Surgical clips are present in the mid right lateral abdomen and right upper quadrant. The lungs are clear. An Infusaport catheter is present. IMPRESSION: Nonspecific bowel gas pattern. Electronically Signed by Oswaldo Cartwright MD 03/20/2018 06:22 P
[2018-03-20 19:55] LABS: ALBUMIN 3.1 GM/DL (3.2-5.2); ALT/SGPT 70 U/L (12-78); BILIRUBIN,DIRECT < 0.1 MG/DL (0.0-0.2); BILIRUBIN,TOTAL 0.2 MG/DL (0.2-1.0); BLOOD UREA NITROGEN 20 MG/DL (7-18); CALCIUM LEVEL 9.3 MG/DL (8.5-10.1); CARBON DIOXIDE LEVEL 20 MEQ/L (21-32); CHLORIDE LEVEL 108 MEQ/L (98-107); CREATININE FOR GFR 0.77 MG/DL (0.55-1.30); GLOMERULAR FILTRATION RATE > 60.0 (>58); GLUCOSE, FASTING 63 MG/DL (70-100); LIPASE 156 U/L (73-393); POTASSIUM SERUM 3.6 MEQ/L (3.5-5.1); SODIUM LEVEL 137 MEQ/L (136-145); TOTAL PROTEIN 7.6 GM/DL (6.4-8.2)
[2018-03-20 20:53] VITALS: BP 154/84
== END 2018-03-20 20:54 | disposition home or self-care (01) ==
LOC: M ED 15:45
DX: K29.70 Gastritis, unspecified, without bleeding (principal); I10 Essential (primary) hypertension; E07.9 Disorder of thyroid, unspecified; G43.909 Migraine, unspecified, not intractable, without status migrainosus; Z79.899 Other long term (current) drug therapy; Z79.890 Hormone replacement therapy; Z88.8 Allergy status to other drugs, medicaments and biological substances; Z87.891 Personal history of nicotine dependence
CPT/HCPCS: 36415; 74021; 80048; 80076; 83690; 85025; 96374; 99284; C9113

== ENCOUNTER → 2018-04-02 | Outpatient (CLI) | payer OTHER ==
[2018-04-02 11:23] LABS: BASO # 0.1 10^3/uL (0.0-0.2); BASO % 0.9 % (0.0-1.0); EOS # 0.5 10^3/uL (0.0-0.50); EOS % 5.1 % (0.0-3.0); HEMOGLOBIN 12.2 g/dl (12.0-15.5); LYMPH # 4.3 10^3/uL (1.5-4.5); LYMPH % 41.1 % (24.0-44.0); MEAN CORPUSCULAR HEMOGLOBIN 29.3 pg (27.0-33.0); MEAN CORPUSCULAR HGB CONC 32.1 g/dl (32.0-36.5); MEAN CORPUSCULAR VOLUME 91.1 fl (80.0-96.0); MONO # 0.6 10^3/uL (0.0-0.8); MONO % 5.3 % (0.0-5.0); NEUTROPHILS # 4.9 10^3/uL (1.8-7.7); NEUTROPHILS % 47.1 % (36.0-66.0); PLATELET COUNT, AUTOMATED 370 10^3/uL (150-450); RED BLOOD COUNT 4.17 10^6/uL (4.00-5.40); WHITE BLOOD COUNT 10.4 10^3/uL (4.0-10.0)
--- NOTE | 2018-04-02 11:35 | REP ---
Chest two views HISTORY: Cough Comparison: 12/17/2017 The lungs are clear. The heart is normal in size. The pulmonary vasculature is normal in appearance. The bony structure is intact. An [id number]-H-Phag catheter is present. IMPRESSION: No acute disease. Electronically Signed by Oswaldo Cartwright MD 04/02/2018 11:26 A
[2018-04-02 12:20] LABS: BLOOD UREA NITROGEN 19 MG/DL (7-18); CALCIUM LEVEL 9.7 MG/DL (8.5-10.1); CARBON DIOXIDE LEVEL 25 MEQ/L (21-32); CHLORIDE LEVEL 99 MEQ/L (98-107); CREATININE FOR GFR 0.76 MG/DL (0.55-1.30); GLOMERULAR FILTRATION RATE > 60.0 (>58); GLUCOSE, FASTING 212 MG/DL (70-100); POTASSIUM SERUM 3.4 MEQ/L (3.5-5.1); SODIUM LEVEL 136 MEQ/L (136-145)
== END ==
LOC: M LAB 10:54
PROVIDERS: ATTEND Family Medicine
DX: R05 Cough (principal)

== ENCOUNTER 2018-04-28 11:30 | Inpatient (IN) | payer OTHER ==
[~2018-04-28] VITALS: Ht 162.6 cm; Wt 94.0 kg
[2018-04-28 14:00] LABS: HEMATOCRIT 39.3 % (36.0-47.0); HEMOGLOBIN 12.4 g/dl (12.0-15.5); MEAN CORPUSCULAR HEMOGLOBIN 29.3 pg (27.0-33.0); MEAN CORPUSCULAR HGB CONC 31.6 g/dl (32.0-36.5); MEAN CORPUSCULAR VOLUME 92.9 fl (80.0-96.0); PLATELET COUNT, AUTOMATED 330 10^3/uL (150-450); RED BLOOD COUNT 4.23 10^6/uL (4.00-5.40); WHITE BLOOD COUNT 13.1 10^3/uL (4.0-10.0)
[2018-04-28 14:06] LABS: HEMOGLOBIN A1c 10.1 %
[2018-04-28 14:19] LABS: HCG, SERUM QUALITATIVE NEGATIVE (NEGATIVE)
[2018-04-28 14:27] LABS: ACETAMINOPHEN LEVEL < 2.0 UG/ML (10.0-30.0); ALBUMIN 3.9 GM/DL (3.2-5.2); ALT/SGPT 58 U/L (12-78); BILIRUBIN,DIRECT < 0.1 MG/DL (0.0-0.2); BILIRUBIN,TOTAL 0.2 MG/DL (0.2-1.0); BLOOD UREA NITROGEN 17 MG/DL (7-18); CALCIUM LEVEL 9.5 MG/DL (8.5-10.1); CARBON DIOXIDE LEVEL 22 MEQ/L (21-32); CHLORIDE LEVEL 104 MEQ/L (98-107); CREATININE FOR GFR 0.76 MG/DL (0.55-1.30); ETHYL ALCOHOL (ETHANOL) < 0.003 % (0.000-0.010); GLOMERULAR FILTRATION RATE > 60.0 (>58); GLUCOSE, FASTING 123 MG/DL (70-100); POTASSIUM SERUM 3.6 MEQ/L (3.5-5.1); SALICYLATE LEVEL < 1.7 MG/DL (5.0-30.0); SODIUM LEVEL 138 MEQ/L (136-145); THYROID STIMULATING HORMONE 0.475 uIU/ML (0.358-3.740); TOTAL PROTEIN 7.9 GM/DL (6.4-8.2)
[2018-04-28] MEDS ORDERED: ALPRAZolam 0.5 MG TAB PO ONE (15:15)
[2018-04-28 15:43] LABS: AMPHETAMINES LEVEL URINE NEGATIVE (NEGATIVE); BARBITURATES URINE NEGATIVE (NEGATIVE); BENZODIAZEPINES URINE NEGATIVE (NEGATIVE); CANNABINOIDS URINE POSITIVE (NEGATIVE); COCAINE METABOLITE URINE NEGATIVE (NEGATIVE); METHADONE URINE NEGATIVE (NEGATIVE); OPIATES URINE NEGATIVE (NEGATIVE); PHENCYCLIDINE URINE NEGATIVE (NEGATIVE)
[2018-04-28] MEDS ORDERED: LORazepam 1 MG TAB PO ONE (17:45)
[2018-04-28] MEDS ORDERED: MOM 30ML SUSPENSION UDC PO PRN (20:15)
[2018-04-28] MEDS ORDERED: ACETAMINOPHEN TAB 650MG DOSE (2X325MG) PO PRN (20:15)
[2018-04-28] MEDS ORDERED: LORazepam 1 MG TAB PO PRN (20:15)
[2018-04-28] MEDS ORDERED: traZODone 50 MG TAB PO PRN (20:15)
[2018-04-28] MEDS ORDERED: LORazepam 2 MG TAB PO PRN (20:15)
[2018-04-28] MEDS ORDERED: MAALOX 30 ML SUSP *UDC PO PRN (20:15)
[2018-04-28] MEDS ORDERED: CARA1TAB6 PO (21:37)
[2018-04-28] MEDS ORDERED: VITA100066 PO (21:37)
[2018-04-28] MEDS ORDERED: TOPI50TA9 PO (21:37)
[2018-04-28] MEDS ORDERED: CETI10TA PO (21:37)
[2018-04-28] MEDS ORDERED: TRIA0.1L EXT (21:37)
[2018-04-28] MEDS ORDERED: TIZA-208 PO (21:37)
[2018-04-28] MEDS ORDERED: HYDR25TAB PO (21:37)
[2018-04-28] MEDS ORDERED: VENL75CA47 PO (21:37)
[2018-04-29 16:00] VITALS: BP 134/90
[2018-04-29] MEDS: HumaLOG INSULIN (NovoLOG) PER UNIT SC SCH ×2 (17:30→20:40)
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
[2018-04-29] MEDS ORDERED: SYMBICORT 160/4.5MCG INHALER 6GM INH PRN (18:00)
[2018-04-29] MEDS ORDERED: tiZANidine 4 MG TAB PO PRN (18:00)
[2018-04-29] MEDS ORDERED: POLYVINYL ALCOHOL OPHTH SOLN 15 ML(LIQUITEARS) OU PRN (18:00)
[2018-04-29] MEDS ORDERED: DOCUSATE SODIUM 100 MG CAP PO PRN (18:00)
[2018-04-29] MEDS ORDERED: GLUCAGON FOR INJ 1 MG VIAL (J1610) SC PRN (18:00)
[2018-04-29] MEDS ORDERED: GLUCOSE 4 GM CHEW TABLET PO PRN (18:00)
[2018-04-29] MEDS ORDERED: ALBUTEROL 90 MCG/ACT 8GM HFA INHALER INH PRN (18:00)
[2018-04-29] MEDS: traZODone 50 MG TAB PO PRN (20:36)
[2018-04-29] MEDS: GABAPENTIN 300 MG CAP PO SCH (20:36)
[2018-04-29] MEDS: busPIRone 10 MG TAB PO SCH (20:37)
[2018-04-29] MEDS: tiZANidine 4 MG TAB PO PRN (20:37)
[2018-04-29] MEDS: SUCRALFATE 1 GM TAB PO SCH (20:37)
[2018-04-29] MEDS: TOPIRAMATE (TopAMAX) 25 MG TAB PO SCH (20:38)
[2018-04-29] MEDS ORDERED: LEVEMIR (INSULIN DETEMIR) 1 UNITS/0.01ML SC ONE (20:45)
[2018-04-30] MEDS: LEVOTHYROXINE 25MCG TABLET (0.025MG) PO SCH (06:16)
[2018-04-30] MEDS: HumaLOG INSULIN (NovoLOG) PER UNIT SC SCH ×4 (06:32→20:49)
[2018-04-30] MEDS: SUCRALFATE 1 GM TAB PO SCH ×4 (06:32→20:48)
[2018-04-30 06:41] VITALS: BP 112/63
[2018-04-30] MEDS: tiZANidine 4 MG TAB PO PRN (07:16)
[2018-04-30] MEDS: VITAMIN D 1,000 INTERNATIONAL UNITS TABLET PO SCH (08:09)
[2018-04-30] MEDS: GABAPENTIN 300 MG CAP PO SCH ×3 (08:11→20:48)
[2018-04-30] MEDS: hydroCHLOROthiazide 25 MG TAB PO SCH (08:11)
[2018-04-30] MEDS: TOPIRAMATE (TopAMAX) 25 MG TAB PO SCH ×2 (08:11→20:48)
[2018-04-30] MEDS: DULoxetine 30 MG CAP (CYMBALTA) PO SCH (08:11)
[2018-04-30] MEDS: LISINOPRIL 10 MG TAB PO SCH (08:11)
[2018-04-30] MEDS: PANTOPRAZOLE 40MG TAB (PROTONIX) PO SCH (08:11)
[2018-04-30] MEDS: busPIRone 10 MG TAB PO SCH ×3 (08:11→20:48)
[2018-04-30] MEDS: CETIRIZINE (ZyrTEC) 10 MG TAB PO SCH (08:11)
[2018-04-30] MEDS ORDERED: VENLAFAXINE 37.5 MG TAB PO ONE (09:00)
[2018-04-30 10:57] LABS: TOPIRAMATE LEVEL 4.5 ug/mL (2.0-25.0)
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
[2018-04-30] MEDS ORDERED: SUMAtriptan SUCCINATE 25 MG TAB PO PRN (13:00)
--- NOTE | 2018-04-30 16:28 | ECGEPIP ---
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
[2018-04-30 18:00] VITALS: BP 132/88
[2018-04-30 18:27] LABS: CK-MB VALUE MASS < 1.0 NG/ML (<3.6); CPK CREATINE PHOSPHOKINASE 49 U/L (26-192); MB/CK RELATIVE INDEX 2.04 (< OR =4); TROPONIN I < 0.02 NG/ML (< 0.10)
[2018-04-30] MEDS: traZODone 50 MG TAB PO PRN (20:48)
[2018-04-30] MEDS ORDERED: LEVEMIR (INSULIN DETEMIR) 1 UNITS/0.01ML SC SCH (21:00)
[2018-05-01] MEDS: tiZANidine 4 MG TAB PO PRN (05:19)
[2018-05-01] MEDS: LEVOTHYROXINE 25MCG TABLET (0.025MG) PO SCH (05:19)
[2018-05-01 06:12] VITALS: BP 119/77
--- NOTE | 2018-05-01 06:18 | ECGEPIP ---
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
[2018-05-01] MEDS: HumaLOG INSULIN (NovoLOG) PER UNIT SC SCH ×2 (06:30→12:27)
[2018-05-01] MEDS: SUCRALFATE 1 GM TAB PO SCH ×2 (06:30→12:27)
[2018-05-01 07:25] LABS: BLOOD UREA NITROGEN 19 MG/DL (7-18); CALCIUM LEVEL 8.9 MG/DL (8.5-10.1); CARBON DIOXIDE LEVEL 22 MEQ/L (21-32); CHLORIDE LEVEL 104 MEQ/L (98-107); CREATININE FOR GFR 0.86 MG/DL (0.55-1.30); GLOMERULAR FILTRATION RATE > 60.0 (>58); GLUCOSE, FASTING 273 MG/DL (70-100); POTASSIUM SERUM 3.8 MEQ/L (3.5-5.1); SODIUM LEVEL 135 MEQ/L (136-145)
[2018-05-01] MEDS ORDERED: LEVEMIR (INSULIN DETEMIR) 1 UNITS/0.01ML SC SCH (09:00)
[2018-05-01] MEDS: CETIRIZINE (ZyrTEC) 10 MG TAB PO SCH (09:00)
[2018-05-01 09:01] VITALS: BP 119/77
[2018-05-01] MEDS: busPIRone 10 MG TAB PO SCH (09:01)
[2018-05-01] MEDS: LISINOPRIL 10 MG TAB PO SCH (09:01)
[2018-05-01] MEDS: hydroCHLOROthiazide 25 MG TAB PO SCH (09:02)
[2018-05-01] MEDS: GABAPENTIN 300 MG CAP PO SCH (09:04)
[2018-05-01] MEDS: PANTOPRAZOLE 40MG TAB (PROTONIX) PO SCH (09:04)
[2018-05-01] MEDS: DULoxetine 30 MG CAP (CYMBALTA) PO SCH (09:04)
[2018-05-01] MEDS: TOPIRAMATE (TopAMAX) 25 MG TAB PO SCH (09:05)
[2018-05-01] MEDS: VITAMIN D 1,000 INTERNATIONAL UNITS TABLET PO SCH (09:06)
[2018-05-01] MEDS ORDERED: MINI1CAP PO (11:41)
[2018-05-01] MEDS ORDERED: PRAZOSIN 1 MG CAP PO SCH (21:00)
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
== END 2018-05-01 13:25 | disposition home or self-care (01) | DRG 751 ==
LOC: M ED 11:30 → M ED INP 20:04 → M PSY 04-29 14:26
PROVIDERS: ADMIT Psychiatry & Neurology Psychiatry; ATTEND Psychiatry & Neurology Psychiatry
DX: F33.9 Major depressive disorder, recurrent, unspecified (principal); J44.9 Chronic obstructive pulmonary disease, unspecified; I10 Essential (primary) hypertension; E11.9 Type 2 diabetes mellitus without complications; F41.1 Generalized anxiety disorder; F43.10 Post-traumatic stress disorder, unspecified; Z79.899 Other long term (current) drug therapy; Z88.8 Allergy status to other drugs, medicaments and biological substances; G43.909 Migraine, unspecified, not intractable, without status migrainosus; G47.33 Obstructive sleep apnea (adult) (pediatric); E78.5 Hyperlipidemia, unspecified; E03.9 Hypothyroidism, unspecified; M79.7 Fibromyalgia; M54.5 Low back pain; G89.29 Other chronic pain; R26.89 Other abnormalities of gait and mobility; J30.9 Allergic rhinitis, unspecified; K21.9 Gastro-esophageal reflux disease without esophagitis

== ENCOUNTER → 2018-05-28 | Outpatient (CLI) | payer OTHER ==
[~2018-05-28] MED LIST changes: +ACET-716 PO; -ACET30TAB PO; +CARA1TAB6 PO; +CETI10TA PO; +HYDR-3715 PO; +LIDOCAINE 2% MDV 20 ML VIAL As Ordered ONE; +MINI1CAP PO; -NORCOTAB PO; +OSEL75CA PO; +TIZA4TAB4 PO; +TOPI50TA9 PO; +TRIA2LOT EXT; +VITA100066 PO
--- NOTE | 2018-06-17 09:03 | REPIR ---
DATE OF PROCEDURE: 05/28/2018 ATTENDING SURGEON: Dr. Amelia Kulkarni ASSISTANTS: Jan Ludwig and Jessica Garcia. PREOPERATIVE DIAGNOSIS: Alpha-1 antitrypsin deficiency left internal jugular vein tunneled central venous catheter with port. POSTOPERATIVE DIAGNOSIS: Alpha-1 antitrypsin deficiency left internal jugular vein tunneled central venous catheter with port. PROCEDURE: Left internal jugular vein tunneled central venous catheter with port removal. INDICATION: The patient is a 47-year-old female, who underwent a Port-A-Cath placement for infusion of medication and no longer requires the Zaem-P-[id number]. The patient will undergo removal of the Port-A-Cath. Risks, benefits and alternative treatment options were discussed with the patient. ANESTHESIA: Local with 10 mL of 2% lidocaine. FLUOROSCOPY TIME: 0.1 minutes. CONTRAST: None. COMPLICATIONS: None. DRAINS: None. SPECIMENS: None. IMPLANTS: None. DESCRIPTION OF PROCEDURE: The patient was taken to the angiography suite, placed supine on the angiography room table and then prepped and draped in the standard surgical fashion. The skin overlying the port and subcutaneous tissue were anesthetized with 2% lidocaine. The previous incision was opened using a scalpel. The port was sharply dissected free and removed, and there was a 21 cm catheter attached to the port. Hemostasis was obtained, after which, the incision was closed using serial Monocryl in inverted interrupted fashion. Steri-Strips and dressings were applied. The patient tolerated the procedure well. All instrument, sponge, needle counts were correct at the end the case. There were no complications. Dr. Kulkarni was present for and directed the entire case. The patient was transferred to the recovery room and subsequently discharged in stable condition.
== END | disposition home or self-care (01) ==
LOC: M IRPRO 10:41
PROVIDERS: ATTEND Family Medicine
DX: Z45.2 Encounter for adjustment and management of vascular access device (principal); E88.01 Alpha-1-antitrypsin deficiency

== ENCOUNTER 2018-06-10 14:27 | Emergency (ER) | payer OTHER ==
[~2018-06-10] VITALS: Ht 162.6 cm; Wt 93.0 kg
[~2018-06-10 14:27] MED LIST changes: -LIDOCAINE 2% MDV 20 ML VIAL As Ordered ONE
--- NOTE | 2018-06-10 15:28 | REP ---
X-ray: Two views. History: Dyspnea and cough. Comparison chest x-ray: April 02, 2018. Findings: The lungs are symmetrically aerated and free of infiltrate. Pleural angles are sharp. Heart size is normal. No bony abnormality is seen. The [id number]-Euvk catheter noted previously has been removed. No bony abnormalities seen. Impression: Negative chest x-ray. Electronically Signed by Emil Booker MD 06/10/2018 03:19 P
[2018-06-10] MEDS ORDERED: IPRATROPIUM 0.5MG/ALBUTEROL 2.5MG INH SOL UD 3ML (DUONEB)(J7620) NEB ONE (15:45)
[2018-06-10] MEDS ORDERED: methylPREDNISolone INJ 125 MG/2 ML VIAL (J2930) IV ONE (15:45)
[2018-06-10] MEDS ORDERED: ALBUTEROL SULFATE 2.5 MG/0.5 ML INH NEB SOLN NEB ONE (15:45)
[2018-06-10 15:54] LABS: BASO # 0.1 10^3/uL (0.0-0.2); BASO % 0.7 % (0.0-1.0); EOS # 0.3 10^3/uL (0.0-0.50); EOS % 2.6 % (0.0-3.0); HEMATOCRIT 36.8 % (36.0-47.0); HEMOGLOBIN 11.8 g/dl (12.0-15.5); LYMPH # 3.3 10^3/uL (1.5-4.5); LYMPH % 34.9 % (24.0-44.0); MEAN CORPUSCULAR HEMOGLOBIN 29.5 pg (27.0-33.0); MEAN CORPUSCULAR HGB CONC 32.1 g/dl (32.0-36.5); MONO # 0.8 10^3/uL (0.0-0.8); MONO % 8.4 % (0.0-5.0); NEUTROPHILS # 5.1 10^3/uL (1.8-7.7); NEUTROPHILS % 52.9 % (36.0-66.0); PLATELET COUNT, AUTOMATED 345 10^3/uL (150-450); WHITE BLOOD COUNT 9.6 10^3/uL (4.0-10.0)
[2018-06-10 16:17] LABS: BLOOD UREA NITROGEN 14 MG/DL (7-18); CALCIUM LEVEL 9.3 MG/DL (8.5-10.1); CARBON DIOXIDE LEVEL 23 MEQ/L (21-32); CHLORIDE LEVEL 103 MEQ/L (98-107); GLOMERULAR FILTRATION RATE > 60.0 (>58); GLUCOSE, FASTING 322 MG/DL (70-100); POTASSIUM SERUM 3.6 MEQ/L (3.5-5.1); SODIUM LEVEL 138 MEQ/L (136-145)
[2018-06-10 16:29] VITALS: BP 120/68
[2018-06-10] MEDS ORDERED: PRED5EL PO (17:03)
== END 2018-06-10 17:16 | disposition home or self-care (01) ==
LOC: M ED 14:27
DX: J44.1 Chronic obstructive pulmonary disease with (acute) exacerbation (principal); E11.9 Type 2 diabetes mellitus without complications; K21.9 Gastro-esophageal reflux disease without esophagitis; Z79.899 Other long term (current) drug therapy; Z79.890 Hormone replacement therapy; Z79.4 Long term (current) use of insulin; Z88.8 Allergy status to other drugs, medicaments and biological substances; Z87.891 Personal history of nicotine dependence
CPT/HCPCS: 36415; 71046; 80048; 85025; 94640; 96374; 99284; J2930

== ENCOUNTER 2018-07-08 11:27 | Emergency (ER) | payer OTHER ==
[~2018-07-08] VITALS: Ht 162.6 cm; Wt 92.5 kg
[2018-07-08 11:27] VITALS: BP 172/109
[2018-07-08] MEDS ORDERED: PERCOCET 5MG/325MG TAB PO ONE (12:15)
[2018-07-08] MEDS ORDERED: tiZANidine 4 MG TAB PO ONE (12:15)
--- NOTE | 2018-07-08 12:48 | REP ---
CT Lumbar Spine without contrast HISTORY: Fall COMPARISON: None There is no disc bulge or herniation at the L1-2, L2-3 and L5-L1 levels. There is hypertrophy of the posterior articulating facets at the L5-L1 level. The nerves exit the neural foramina without compression. A diffuse disc bulge is present at the L3-4 level. There is minimal compression of the thecal sac. The L3 nerves exit the neural foramina without compression. A diffuse disc bulge is present at the L4-5 level. There is minimal compression of the thecal sac. The L4 nerves exit the neural foramina without compression. There is no acute fracture or subluxation. The intervertebral discs are normal in height. IMPRESSION: Diffuse disc bulges at the L3-4 L4-5 levels with minimal thecal sac compression. Electronically Signed by Oswaldo Cartwright MD 07/08/2018 12:40 P
[2018-07-08] MEDS ORDERED: IBUP-1022 PO (13:27)
[2018-07-08] MEDS ORDERED: TIZA4CAP PO (13:27)
== END 2018-07-08 13:36 | disposition home or self-care (01) ==
LOC: M ED 11:27
DX: M51.26 Other intervertebral disc displacement, lumbar region (principal); S20.229A Contusion of unspecified back wall of thorax, initial encounter; W01.198A Fall on same level from slipping, tripping and stumbling with subsequent striking against other object, initial encounter; Y92.002 Bathroom of unspecified non-institutional (private) residence as the place of occurrence of the external cause; Y93.89 Activity, other specified; Z87.891 Personal history of nicotine dependence; Z88.8 Allergy status to other drugs, medicaments and biological substances

== ENCOUNTER 2018-07-14 20:59 | Emergency (ER) | payer OTHER ==
[~2018-07-14] VITALS: Ht 162.6 cm; Wt 93.2 kg
[2018-07-14 20:59] VITALS: BP 142/96
[~2018-07-14 20:59] MED LIST changes: +TIZA4CAP PO
[2018-07-14] MEDS ORDERED: ABIL1TAB11 PO (21:13)
== END 2018-07-14 22:44 | disposition home or self-care (01) ==
LOC: M ED 20:59
DX: H00.024 Hordeolum internum left upper eyelid (principal); E11.9 Type 2 diabetes mellitus without complications; Z87.891 Personal history of nicotine dependence; Z88.8 Allergy status to other drugs, medicaments and biological substances; Z79.899 Other long term (current) drug therapy; Z79.51 Long term (current) use of inhaled steroids; Z79.4 Long term (current) use of insulin

== ENCOUNTER 2018-07-15 20:58 | Emergency (ER) | payer OTHER ==
[~2018-07-15] VITALS: Ht 162.6 cm; Wt 93.2 kg
[~2018-07-15 20:58] MED LIST changes: +ABIL1TAB11 PO
[2018-07-15] MEDS ORDERED: CLINDAMYCIN 300 MG in APPROPRIATE DILUENT 1 EA IV ONE (21:30)
[2018-07-15] MEDS ORDERED: cefTRIAXone SOD 1 GM in D5W MINI-BAG PLUS 50 ML IV ONE (21:30)
[2018-07-15] MEDS ORDERED: KETOROLAC 30 MG/ML VIAL (J1885) IV ONE (21:30)
[2018-07-15 22:45] LABS: BASO # 0.1 10^3/uL (0.0-0.2); BASO % 0.8 % (0.0-1.0); EOS # 0.5 10^3/uL (0.0-0.50); EOS % 4.2 % (0.0-3.0); HEMATOCRIT 36.1 % (36.0-47.0); HEMOGLOBIN 11.5 g/dl (12.0-15.5); LYMPH # 4.1 10^3/uL (1.5-4.5); LYMPH % 36.5 % (24.0-44.0); MEAN CORPUSCULAR HEMOGLOBIN 29.3 pg (27.0-33.0); MEAN CORPUSCULAR HGB CONC 31.9 g/dl (32.0-36.5); MEAN CORPUSCULAR VOLUME 92.1 fl (80.0-96.0); MONO # 0.9 10^3/uL (0.0-0.8); MONO % 8.1 % (0.0-5.0); NEUTROPHILS # 5.7 10^3/uL (1.8-7.7); PLATELET COUNT, AUTOMATED 281 10^3/uL (150-450); RED BLOOD COUNT 3.92 10^6/uL (4.00-5.40); WHITE BLOOD COUNT 11.3 10^3/uL (4.0-10.0)
[2018-07-15 22:59] LABS: BLOOD UREA NITROGEN 21 MG/DL (7-18); C REACTIVE PROTEIN QUANTITATIV 2.28 MG/DL (0.00-0.30); CALCIUM LEVEL 9.1 MG/DL (8.5-10.1); CARBON DIOXIDE LEVEL 28 MEQ/L (21-32); CHLORIDE LEVEL 103 MEQ/L (98-107); CREATININE FOR GFR 0.86 MG/DL (0.55-1.30); GLOMERULAR FILTRATION RATE > 60.0 (>58); GLUCOSE, FASTING 328 MG/DL (70-100); POTASSIUM SERUM 3.3 MEQ/L (3.5-5.1); SODIUM LEVEL 137 MEQ/L (136-145)
[2018-07-15] MEDS ORDERED: ISOVUE-370 76% 100ML VIAL (Q9967) As Ordered ONE (23:04)
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
[2018-07-16] MEDS ORDERED: CEFD300CAP PO (00:25)
[2018-07-16] MEDS ORDERED: CLEO300C2 PO (00:25)
[2018-07-16 00:57] VITALS: BP 141/89
[2018-07-16] MEDS ORDERED: BUSP30TA PO (14:28)
[2018-07-16] MEDS ORDERED: IBUP1TAB6 PO (14:28)
[2018-07-16] MEDS ORDERED: PRAZ1CAP PO (14:28)
[2018-07-16] MEDS ORDERED: VENL150T24 PO (14:28)
[2018-07-16] MEDS ORDERED: BUDE0.5S6 INH (14:29)
[2018-07-16] MEDS ORDERED: AMBI5TAB PO (14:29)
== END 2018-07-16 01:01 | disposition home or self-care (01) ==
LOC: M ED 20:58
DX: H00.034 Abscess of left upper eyelid (principal); E11.9 Type 2 diabetes mellitus without complications; I10 Essential (primary) hypertension; Z87.891 Personal history of nicotine dependence; Z79.4 Long term (current) use of insulin; Z79.899 Other long term (current) drug therapy; Z88.8 Allergy status to other drugs, medicaments and biological substances
CPT/HCPCS: 36415; 70481; 80048; 85025; 86140; 87040; 96365; 96368; 96375; 96376; 99284; J0696; J1885; Q9967

== ENCOUNTER 2018-07-16 10:38 | Inpatient (IN) | payer OTHER ==
[~2018-07-16] VITALS: Ht 162.6 cm; Wt 93.2 kg
[~2018-07-16 10:38] MED LIST changes: +CEFD300CAP PO; +CLEO300C2 PO
[2018-07-16 11:31] LABS: BASO # 0.1 10^3/uL (0.0-0.2); BASO % 0.7 % (0.0-1.0); EOS # 0.3 10^3/uL (0.0-0.50); EOS % 4.6 % (0.0-3.0); HEMOGLOBIN 11.1 g/dl (12.0-15.5); LYMPH # 3.1 10^3/uL (1.5-4.5); LYMPH % 41.2 % (24.0-44.0); MEAN CORPUSCULAR HEMOGLOBIN 29.5 pg (27.0-33.0); MEAN CORPUSCULAR HGB CONC 31.7 g/dl (32.0-36.5); MEAN CORPUSCULAR VOLUME 93.1 fl (80.0-96.0); MONO # 0.7 10^3/uL (0.0-0.8); NEUTROPHILS # 3.3 10^3/uL (1.8-7.7); NEUTROPHILS % 44.1 % (36.0-66.0); PLATELET COUNT, AUTOMATED 283 10^3/uL (150-450); RED BLOOD COUNT 3.76 10^6/uL (4.00-5.40); WHITE BLOOD COUNT 7.5 10^3/uL (4.0-10.0)
[2018-07-16] MEDS ORDERED: KETOROLAC 30 MG/ML VIAL (J1885) IV ONE ×2 (11:45→18:15)
[2018-07-16 11:50] LABS: ERYTHROCYTE SEDIMENTATION RATE 44 mm/hr (0-20)
[2018-07-16 11:57] LABS: BLOOD UREA NITROGEN 15 MG/DL (7-18); C REACTIVE PROTEIN QUANTITATIV 2.68 MG/DL (0.00-0.30); CALCIUM LEVEL 8.8 MG/DL (8.5-10.1); CARBON DIOXIDE LEVEL 29 MEQ/L (21-32); CHLORIDE LEVEL 103 MEQ/L (98-107); CREATININE FOR GFR 0.76 MG/DL (0.55-1.30); GLOMERULAR FILTRATION RATE > 60.0 (>58); GLUCOSE, FASTING 268 MG/DL (70-100); POTASSIUM SERUM 3.5 MEQ/L (3.5-5.1); SODIUM LEVEL 138 MEQ/L (136-145)
[2018-07-16] MEDS ORDERED: ISOVUE-370 76% 100ML VIAL (Q9967) As Ordered ONE (12:23)
[2018-07-16] MEDS ORDERED: MORPHINE 4 MG/ML 1ML VIAL/SYRINGE (J2270) IV ONE ×2 (12:45→18:15)
[2018-07-16] MEDS ORDERED: ONDANSETRON 4MG/2ML VIAL (J2405) IV ONE ×2 (12:45→18:15)
--- NOTE | 2018-07-16 13:03 | REP ---
MAXILLOFACIAL CT WITH CONTRAST: HISTORY: Swelling. CONTRAST: Isovue 370, 75 mL. Comparison: CT orbit 07/15/2018 The sinuses are clear. The osteomeatal units are patent. The middle and inferior nasal turbinates are partially paradoxical. There is mild deviation of the nasal septum to the right. The cribriform plate, medial russell of the orbits and optic canals are intact. There is aeration of the right anterior clinoid process. The carotid canals form a segment of the posterolateral russell of the sphenoid sinus. The sphenoid sinus septa insert into the internal carotid canal russell. There is an old fracture of the floor of the left orbit. The naso-, ralph-, and hypopharynx are normal in appearance. Small lymph nodes less than 1 cm in size are present in the intrajugular chains, posterior triangles, submandibular, and submental areas. Contents of the orbits are normal. A small amount of preseptal soft tissue swelling is present on the left. IMPRESSION: 1. There is no acute or chronic sinusitis. 2. Left preseptal soft tissue swelling. Electronically Signed by Oswaldo Cartwright MD 07/16/2018 01:22 P
[2018-07-16] MEDS ORDERED: NS 1,000 ML IV ONE (13:15)
[2018-07-16] MEDS ORDERED: VANCOMYCIN HCL 1,000 MG, VIAL MATE ADAPTER 1 EACH in D5W 250 ML IV ONE (13:30)
[2018-07-16] MEDS ORDERED: DEXTROSE 50% 50 ML SYRINGE IV PRN (14:00)
[2018-07-16] MEDS ORDERED: GLUCOSE 4 GM CHEW TABLET PO PRN (14:00)
[2018-07-16] MEDS ORDERED: GLUCAGON FOR INJ 1 MG VIAL (J1610) SC PRN (14:00)
[2018-07-16] MEDS ORDERED: cefTRIAXone SOD 2 GM in D5W MINI-BAG PLUS 50 ML IV ONE (14:15)
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
[2018-07-16] MEDS ORDERED: PRAZ1CAP PO (14:28)
[2018-07-16] MEDS ORDERED: VENL150T24 PO (14:28)
[2018-07-16] MEDS ORDERED: IBUP1TAB6 PO (14:28)
[2018-07-16] MEDS ORDERED: BUSP30TA PO (14:28)
[2018-07-16] MEDS ORDERED: BUDE0.5S6 INH (14:29)
[2018-07-16] MEDS ORDERED: AMBI5TAB PO (14:29)
[2018-07-16 14:57] VITALS: BP 162/90
--- NOTE | 2018-07-16 15:38 | PHACANCOPD ---
PHARMACY VANCOMYCIN DOSING Pt Demographics Demographics Patient Age:47 , Weight:93.180 , Gender: female Adjusted Body Weight Events Past 24 Hours Events Past 24 Hours: NO: Dialysis, Diuretic Therapy, Change in CrCl, Fever, Elevation in WBC, Pending Diagnostics, Pending Procedures, Other Vancomycin Vancomycin indication: CELLULITIS Vancomycin Target Ranges: 10-20 mcg/ml Vancomycin Load Y/N: Yes Load Dose Date Time Vancomycin Load Dose: 2G IV VANCO Date: 07/16/18 Time: 1400 Vancomycin Dose Date: 07/16/18. Current Vancomycin Dose: 1 G IV VANCO Q8H Intermittent Dosing?: No Labs Labs Laboratory Tests 07/16/18 11:07 Red Blood Count 3.76 L, Mean Corpuscular Volume 93.1, Mean Corpuscular Hemoglobin 29.5, Mean Corpuscular Hemoglobin Concent 31.7 L, Red Cell Distribution Width 13.5, Neutrophils (%) (Auto) 44.1, Lymphocytes (%) (Auto) 41.2, Monocytes (%) (Auto) 9.0 H, Eosinophils (%) (Auto) 4.6 H, Basophils (%) (Auto) 0.7, Neutrophils # (Auto) 3.3, Lymphocytes # (Auto) 3.1, Monocytes # (Auto) 0.7, Eosinophils # (Auto) 0.3, Basophils # (Auto) 0.1, Calcium Level 8.8 Micro Microbiology 07/16/18 Blood Culture, Received Pending 07/16/18 Blood Culture, Received Pending Creatinine Clearance Date:07/16/18. Creatinine Clearance: [103]. Assessment and Plan Maintaining Current Dose?: Yes Reason for dose change: No Dose Change Pharmacist Note Pharmacist Note Date: 07/16/18. Pharmacist note: NO VANCO HISTORY AT [facility]. CURRENT CRCL 103.4. P ATIENT RECEIVED 1G IV VANCO IN ED. STARTED 1G IV VANCO Q8H FOR 7 DAYS (PER MD) @1600. BC PENDING. TROUGH SCHEDULED BEFORE 4TH DOSE. WILL CONTINUE TO MONITOR PT AND ADJUST DOSE NEEDED. EDGARD THEODORE [facility] July 16, 2018 15:38
[2018-07-16] MEDS: VANCOMYCIN HCL 1,000 MG, VIAL MATE ADAPTER 1 EACH in D5W 250 ML IV SCH (16:00)
[2018-07-16] MEDS: cefTRIAXone SOD 2 GM in D5W MINI-BAG PLUS 50 ML IV SCH (17:26)
[2018-07-16] MEDS: HumaLOG INSULIN (NovoLOG) PER UNIT SC SCH ×2 (17:27→21:04)
[2018-07-16 18:00] VITALS: BP 164/89
[2018-07-16] MEDS ORDERED: ALBUTEROL 90 MCG/ACT 8GM HFA INHALER INH PRN (18:00)
[2018-07-16] MEDS ORDERED: POLYVINYL ALCOHOL OPHTH SOLN 15 ML(LIQUITEARS) OU PRN (18:00)
[2018-07-16] MEDS ORDERED: DOCUSATE SODIUM 100 MG CAP PO PRN (18:00)
[2018-07-16] MEDS ORDERED: SUMAtriptan SUCCINATE 25 MG TAB PO PRN (18:00)
[2018-07-16] MEDS ORDERED: amLODIPine 10 MG TAB PO ONE (18:15)
[2018-07-16] MEDS ORDERED: cloNIDine 0.1 MG TAB PO ONE (18:15)
[2018-07-16] MEDS: SUCRALFATE 1 GM TAB PO SCH ×2 (18:27→20:56)
[2018-07-16] MEDS: GABAPENTIN 300 MG CAP PO SCH ×2 (18:33→20:58)
[2018-07-16] MEDS: SYMBICORT 160/4.5MCG INHALER 6GM INH SCH (19:36)
[2018-07-16 19:58] VITALS: BP 144/92
[2018-07-16] MEDS: PANTOPRAZOLE 40MG TAB (PROTONIX) PO SCH (20:56)
[2018-07-16] MEDS: zolPIDEM TARTRATE 5 MG TAB PO SCH (20:57)
[2018-07-16] MEDS: TOPIRAMATE (TopAMAX) 100 MG TAB PO SCH (20:57)
[2018-07-16] MEDS: busPIRone 10 MG TAB PO SCH (20:57)
[2018-07-16] MEDS: PRAZOSIN 1 MG CAP PO SCH (20:57)
[2018-07-16] MEDS ORDERED: ACETAMINOPHEN TAB 650MG DOSE (2X325MG) PO ONE (22:15)
[2018-07-16] MEDS ORDERED: ONDANSETRON 4MG/2ML VIAL (J2405) IV PRN (23:00)
[2018-07-17] MEDS: VANCOMYCIN HCL 1,000 MG, VIAL MATE ADAPTER 1 EACH in D5W 250 ML IV SCH ×4 (00:29→23:15)
--- NOTE | 2018-07-17 00:29 | TRANSCARE ---
Transition of Care: Transition of Care received phone call from nursing regarding home glargine Basaglar 70 units BID SC. It is noted that patient reports that she is on 70 units insuline BID. Basaglar is non-formulary and one to one levemir conversion was initially ordered; rechecked and noted most recent POC glucose 224 thus levemir was d/c about 5 minutes being ordered before any dose was given. POC glucose 120 and 224 today. Discussed with nursing no basal insulin will be ordered at this time. Pt reported 6/10 eye pain and low back pain, currently receiving IV antibiotics for left pre-orbital cellulitis, one time dose of tylenol ordered. It is noted that compressive stocking is listed for DVT prophylaxis thus we will continue that for DVT prophylaxis at this time. JOSE CANO DO July 17, 2018 00:29
[2018-07-17] MEDS: LEVOTHYROXINE 25MCG TABLET (0.025MG) PO SCH (05:56)
[2018-07-17 06:00] VITALS: BP 108/59
[2018-07-17 07:05] LABS: HEMATOCRIT 33.4 % (36.0-47.0); HEMOGLOBIN 10.6 g/dl (12.0-15.5); MEAN CORPUSCULAR HEMOGLOBIN 29.9 pg (27.0-33.0); MEAN CORPUSCULAR HGB CONC 31.7 g/dl (32.0-36.5); MEAN CORPUSCULAR VOLUME 94.4 fl (80.0-96.0); PLATELET COUNT, AUTOMATED 262 10^3/uL (150-450); RED BLOOD COUNT 3.54 10^6/uL (4.00-5.40); WHITE BLOOD COUNT 7.5 10^3/uL (4.0-10.0)
[2018-07-17 07:23] LABS: BLOOD UREA NITROGEN 9 MG/DL (7-18); CALCIUM LEVEL 8.3 MG/DL (8.5-10.1); CARBON DIOXIDE LEVEL 30 MEQ/L (21-32); CHLORIDE LEVEL 104 MEQ/L (98-107); CREATININE FOR GFR 0.66 MG/DL (0.55-1.30); GLOMERULAR FILTRATION RATE > 60.0 (>58); GLUCOSE, FASTING 228 MG/DL (70-100); POTASSIUM SERUM 3.4 MEQ/L (3.5-5.1); SODIUM LEVEL 138 MEQ/L (136-145)
[2018-07-17] MEDS: HumaLOG INSULIN (NovoLOG) PER UNIT SC SCH ×4 (07:30→20:56)
[2018-07-17] MEDS: SYMBICORT 160/4.5MCG INHALER 6GM INH SCH ×2 (07:36→22:10)
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
[2018-07-17 08:06] LABS: ERYTHROCYTE SEDIMENTATION RATE 35 mm/hr (0-20)
[2018-07-17 08:26] LABS: MAGNESIUM LEVEL 1.8 MG/DL (1.8-2.4)
[2018-07-17] MEDS: GABAPENTIN 300 MG CAP PO SCH ×3 (08:30→20:55)
[2018-07-17] MEDS: LISINOPRIL 10 MG TAB PO SCH (08:30)
[2018-07-17] MEDS: LEVEMIR (INSULIN DETEMIR) 1 UNITS/0.01ML SC SCH ×2 (08:30→20:53)
[2018-07-17] MEDS: busPIRone 10 MG TAB PO SCH ×2 (08:30→20:54)
[2018-07-17] MEDS: PANTOPRAZOLE 40MG TAB (PROTONIX) PO SCH ×2 (08:30→20:55)
[2018-07-17] MEDS: GEMFIBROZIL 600 MG TAB PO SCH (08:30)
[2018-07-17] MEDS: CETIRIZINE (ZyrTEC) 10 MG TAB PO SCH (08:30)
[2018-07-17] MEDS: VITAMIN D 1,000 INTERNATIONAL UNITS TABLET PO SCH (08:31)
[2018-07-17] MEDS: SUCRALFATE 1 GM TAB PO SCH ×4 (08:31→20:55)
[2018-07-17] MEDS ORDERED: LEVEMIR (INSULIN DETEMIR) 1 UNITS/0.01ML SC SCH (09:00)
[2018-07-17] MEDS ORDERED: hydroCHLOROthiazide 25 MG TAB PO SCH (09:00)
[2018-07-17] MEDS ORDERED: POTASSIUM CHLORIDE 10 MEQ SR TABLET PO ONE (09:00)
[2018-07-17] MEDS ORDERED: MORPHINE 4 MG/ML 1ML VIAL/SYRINGE (J2270) IV PRN (10:30)
[2018-07-17 14:00] VITALS: BP 141/78
[2018-07-17] MEDS ORDERED: KETOROLAC TROMETHAMINE 10 MG TAB PO PRN (14:00)
[2018-07-17] MEDS: KETOROLAC 30 MG/ML VIAL (J1885) IV SCH ×2 (14:10→20:55)
[2018-07-17] MEDS: cefTRIAXone SOD 2 GM in D5W MINI-BAG PLUS 50 ML IV SCH (17:00)
[2018-07-17] MEDS: TOPIRAMATE (TopAMAX) 100 MG TAB PO SCH (20:54)
[2018-07-17] MEDS: PRAZOSIN 1 MG CAP PO SCH (20:55)
[2018-07-17] MEDS: zolPIDEM TARTRATE 5 MG TAB PO SCH (20:55)
[2018-07-17 21:50] VITALS: BP 141/88
[2018-07-18] MEDS: LEVOTHYROXINE 25MCG TABLET (0.025MG) PO SCH (05:52)
[2018-07-18 06:00] VITALS: BP 155/85
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
[2018-07-18] MEDS ORDERED: hydrOXYzine 25 MG TAB PO ONE (07:00)
[2018-07-18 07:13] LABS: BASO # 0.1 10^3/uL (0.0-0.2); BASO % 0.6 % (0.0-1.0); EOS # 0.4 10^3/uL (0.0-0.50); EOS % 5.6 % (0.0-3.0); HEMATOCRIT 32.8 % (36.0-47.0); HEMOGLOBIN 10.1 g/dl (12.0-15.5); LYMPH # 3.2 10^3/uL (1.5-4.5); LYMPH % 40.6 % (24.0-44.0); MEAN CORPUSCULAR HEMOGLOBIN 29.4 pg (27.0-33.0); MEAN CORPUSCULAR HGB CONC 30.8 g/dl (32.0-36.5); MEAN CORPUSCULAR VOLUME 95.6 fl (80.0-96.0); MONO # 0.7 10^3/uL (0.0-0.8); NEUTROPHILS # 3.5 10^3/uL (1.8-7.7); NEUTROPHILS % 43.8 % (36.0-66.0); PLATELET COUNT, AUTOMATED 271 10^3/uL (150-450); RED BLOOD COUNT 3.43 10^6/uL (4.00-5.40); WHITE BLOOD COUNT 7.9 10^3/uL (4.0-10.0)
[2018-07-18] MEDS: SYMBICORT 160/4.5MCG INHALER 6GM INH SCH ×2 (07:33→21:36)
[2018-07-18 07:41] LABS: BLOOD UREA NITROGEN 10 MG/DL (7-18); CALCIUM LEVEL 9.3 MG/DL (8.5-10.1); CARBON DIOXIDE LEVEL 24 MEQ/L (21-32); CHLORIDE LEVEL 111 MEQ/L (98-107); CREATININE FOR GFR 0.74 MG/DL (0.55-1.30); GLOMERULAR FILTRATION RATE > 60.0 (>58); GLUCOSE, FASTING 183 MG/DL (70-100); SODIUM LEVEL 140 MEQ/L (136-145)
[2018-07-18] MEDS: raNITIdine SYRUP 150 MG/10 ML UDC PO SCH ×2 (08:49→20:53)
[2018-07-18] MEDS: VANCOMYCIN HCL 1,000 MG, VIAL MATE ADAPTER 1 EACH in D5W 250 ML IV SCH ×3 (08:49→23:18)
[2018-07-18] MEDS: HumaLOG INSULIN (NovoLOG) PER UNIT SC SCH ×4 (08:49→20:54)
[2018-07-18] MEDS: LEVEMIR (INSULIN DETEMIR) 1 UNITS/0.01ML SC SCH ×2 (08:49→20:54)
[2018-07-18] MEDS: KETOROLAC 30 MG/ML VIAL (J1885) IV SCH ×2 (08:50→20:53)
[2018-07-18] MEDS: GABAPENTIN 300 MG CAP PO SCH ×3 (08:51→20:54)
[2018-07-18] MEDS: GEMFIBROZIL 600 MG TAB PO SCH (08:51)
[2018-07-18] MEDS: PANTOPRAZOLE 40MG TAB (PROTONIX) PO SCH ×2 (08:51→20:54)
[2018-07-18] MEDS: SUCRALFATE 1 GM TAB PO SCH ×4 (08:51→20:54)
[2018-07-18] MEDS: diphenhydrAMINE CREAM 30GM TOP SCH ×4 (08:51→20:55)
[2018-07-18] MEDS: CETIRIZINE (ZyrTEC) 10 MG TAB PO SCH (08:51)
[2018-07-18] MEDS: hydrOXYzine 25 MG TAB PO SCH ×2 (08:51→20:54)
[2018-07-18] MEDS: LISINOPRIL 10 MG TAB PO SCH (08:51)
[2018-07-18] MEDS: busPIRone 10 MG TAB PO SCH ×2 (08:52→20:53)
[2018-07-18] MEDS: VITAMIN D 1,000 INTERNATIONAL UNITS TABLET PO SCH (08:52)
[2018-07-18 14:00] VITALS: BP 136/79
[2018-07-18] MEDS: cefTRIAXone SOD 2 GM in D5W MINI-BAG PLUS 50 ML IV SCH (17:44)
[2018-07-18] MEDS: tiZANidine 4 MG TAB PO PRN (17:49)
[2018-07-18 20:00] VITALS: BP 150/70
[2018-07-18] MEDS: TOPIRAMATE (TopAMAX) 100 MG TAB PO SCH (20:53)
[2018-07-18] MEDS: zolPIDEM TARTRATE 5 MG TAB PO SCH (20:54)
[2018-07-18] MEDS: PRAZOSIN 1 MG CAP PO SCH (20:54)
[2018-07-19 04:00] VITALS: BP 139/74
[2018-07-19] MEDS: LEVOTHYROXINE 25MCG TABLET (0.025MG) PO SCH (05:31)
[2018-07-19 07:10] LABS: BASO # 0.1 10^3/uL (0.0-0.2); BASO % 0.9 % (0.0-1.0); EOS # 0.4 10^3/uL (0.0-0.50); EOS % 4.5 % (0.0-3.0); HEMOGLOBIN 10.6 g/dl (12.0-15.5); LYMPH # 3.4 10^3/uL (1.5-4.5); LYMPH % 42.1 % (24.0-44.0); MEAN CORPUSCULAR HEMOGLOBIN 29.5 pg (27.0-33.0); MEAN CORPUSCULAR HGB CONC 31.2 g/dl (32.0-36.5); MEAN CORPUSCULAR VOLUME 94.7 fl (80.0-96.0); MONO # 0.7 10^3/uL (0.0-0.8); MONO % 8.4 % (0.0-5.0); NEUTROPHILS # 3.5 10^3/uL (1.8-7.7); NEUTROPHILS % 43.6 % (36.0-66.0); PLATELET COUNT, AUTOMATED 289 10^3/uL (150-450); RED BLOOD COUNT 3.59 10^6/uL (4.00-5.40)
[2018-07-19 07:35] LABS: BLOOD UREA NITROGEN 12 MG/DL (7-18); CARBON DIOXIDE LEVEL 23 MEQ/L (21-32); CHLORIDE LEVEL 111 MEQ/L (98-107); CREATININE FOR GFR 0.75 MG/DL (0.55-1.30); GLOMERULAR FILTRATION RATE > 60.0 (>58); GLUCOSE, FASTING 189 MG/DL (70-100); POTASSIUM SERUM 4.3 MEQ/L (3.5-5.1); SODIUM LEVEL 140 MEQ/L (136-145)
[2018-07-19] MEDS: SYMBICORT 160/4.5MCG INHALER 6GM INH SCH ×2 (07:41→19:47)
[2018-07-19] MEDS: GABAPENTIN 300 MG CAP PO SCH ×3 (08:41→20:19)
[2018-07-19] MEDS: PANTOPRAZOLE 40MG TAB (PROTONIX) PO SCH ×2 (08:41→20:21)
[2018-07-19] MEDS: hydrOXYzine 25 MG TAB PO SCH ×2 (08:41→20:20)
[2018-07-19] MEDS: VITAMIN D 1,000 INTERNATIONAL UNITS TABLET PO SCH (08:41)
[2018-07-19] MEDS: SUCRALFATE 1 GM TAB PO SCH ×4 (08:41→20:20)
[2018-07-19] MEDS: busPIRone 10 MG TAB PO SCH ×2 (08:41→20:21)
[2018-07-19] MEDS: LISINOPRIL 10 MG TAB PO SCH (08:41)
[2018-07-19] MEDS: KETOROLAC 30 MG/ML VIAL (J1885) IV SCH ×2 (08:41→20:19)
[2018-07-19] MEDS: HumaLOG INSULIN (NovoLOG) PER UNIT SC SCH ×4 (08:42→20:04)
[2018-07-19] MEDS: tiZANidine 4 MG TAB PO PRN ×2 (08:42→18:14)
[2018-07-19] MEDS: raNITIdine SYRUP 150 MG/10 ML UDC PO SCH ×2 (08:42→20:21)
[2018-07-19] MEDS: CETIRIZINE (ZyrTEC) 10 MG TAB PO SCH (08:42)
[2018-07-19] MEDS: GEMFIBROZIL 600 MG TAB PO SCH (08:42)
[2018-07-19] MEDS: LEVEMIR (INSULIN DETEMIR) 1 UNITS/0.01ML SC SCH ×2 (08:43→20:22)
[2018-07-19] MEDS: VANCOMYCIN HCL 1,000 MG, VIAL MATE ADAPTER 1 EACH in D5W 250 ML IV SCH ×2 (08:44→16:50)
[2018-07-19] MEDS: diphenhydrAMINE CREAM 30GM TOP SCH ×4 (08:44→20:23)
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
[2018-07-19 14:00] VITALS: BP 159/87
[2018-07-19] MEDS: cefTRIAXone SOD 2 GM in D5W MINI-BAG PLUS 50 ML IV SCH (16:19)
[2018-07-19] MEDS: zolPIDEM TARTRATE 5 MG TAB PO SCH (20:19)
[2018-07-19] MEDS: TOPIRAMATE (TopAMAX) 100 MG TAB PO SCH (20:20)
[2018-07-19] MEDS: PRAZOSIN 1 MG CAP PO SCH (20:21)
[2018-07-20] MEDS: VANCOMYCIN HCL 1,000 MG, VIAL MATE ADAPTER 1 EACH in D5W 250 ML IV SCH (00:12)
[2018-07-20] MEDS: LEVOTHYROXINE 25MCG TABLET (0.025MG) PO SCH (05:37)
[2018-07-20 06:00] VITALS: BP 157/84
[2018-07-20 07:15] LABS: BASO # 0.1 10^3/uL (0.0-0.2); BASO % 0.7 % (0.0-1.0); EOS # 0.4 10^3/uL (0.0-0.50); EOS % 3.8 % (0.0-3.0); HEMATOCRIT 34.8 % (36.0-47.0); HEMOGLOBIN 10.9 g/dl (12.0-15.5); LYMPH # 3.5 10^3/uL (1.5-4.5); MEAN CORPUSCULAR HEMOGLOBIN 29.1 pg (27.0-33.0); MEAN CORPUSCULAR HGB CONC 31.3 g/dl (32.0-36.5); MONO # 0.8 10^3/uL (0.0-0.8); MONO % 8.3 % (0.0-5.0); NEUTROPHILS # 4.9 10^3/uL (1.8-7.7); NEUTROPHILS % 50.7 % (36.0-66.0); PLATELET COUNT, AUTOMATED 285 10^3/uL (150-450); RED BLOOD COUNT 3.74 10^6/uL (4.00-5.40); WHITE BLOOD COUNT 9.7 10^3/uL (4.0-10.0)
[2018-07-20 07:34] LABS: BLOOD UREA NITROGEN 13 MG/DL (7-18); CARBON DIOXIDE LEVEL 22 MEQ/L (21-32); CHLORIDE LEVEL 110 MEQ/L (98-107); CREATININE FOR GFR 0.71 MG/DL (0.55-1.30); GLOMERULAR FILTRATION RATE > 60.0 (>58); GLUCOSE, FASTING 163 MG/DL (70-100); POTASSIUM SERUM 3.9 MEQ/L (3.5-5.1); SODIUM LEVEL 139 MEQ/L (136-145)
[2018-07-20] MEDS: SYMBICORT 160/4.5MCG INHALER 6GM INH SCH ×2 (08:10→21:04)
[2018-07-20] MEDS: LEVEMIR (INSULIN DETEMIR) 1 UNITS/0.01ML SC SCH ×2 (09:00→21:01)
[2018-07-20] MEDS: CEFDINIR 300 MG CAP (OMNICEF) PO SCH ×2 (09:19→20:56)
[2018-07-20] MEDS: LISINOPRIL 10 MG TAB PO SCH (09:19)
[2018-07-20] MEDS: LACTOBACILLUS ACIDOPHILUS CAP (BACID) PO SCH ×4 (09:19→20:57)
[2018-07-20] MEDS: GABAPENTIN 300 MG CAP PO SCH ×3 (09:19→21:02)
[2018-07-20] MEDS: VITAMIN D 1,000 INTERNATIONAL UNITS TABLET PO SCH (09:19)
[2018-07-20] MEDS: busPIRone 10 MG TAB PO SCH ×2 (09:19→21:02)
[2018-07-20] MEDS: raNITIdine SYRUP 150 MG/10 ML UDC PO SCH ×2 (09:19→20:56)
[2018-07-20] MEDS: CETIRIZINE (ZyrTEC) 10 MG TAB PO SCH (09:20)
[2018-07-20] MEDS: SUCRALFATE 1 GM TAB PO SCH ×4 (09:20→21:00)
[2018-07-20] MEDS: BACTRIM 160MG/800MG DS TAB PO SCH ×2 (09:20→20:59)
[2018-07-20] MEDS: hydrOXYzine 25 MG TAB PO SCH ×2 (09:20→21:02)
[2018-07-20] MEDS: PANTOPRAZOLE 40MG TAB (PROTONIX) PO SCH ×2 (09:20→21:00)
[2018-07-20] MEDS: GEMFIBROZIL 600 MG TAB PO SCH (09:20)
[2018-07-20] MEDS: HumaLOG INSULIN (NovoLOG) PER UNIT SC SCH ×4 (09:21→21:00)
[2018-07-20] MEDS: diphenhydrAMINE CREAM 30GM TOP SCH ×4 (09:22→21:03)
[2018-07-20] MEDS: NS 1,000 ML IV SCH ×2 (09:22→17:53)
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
[2018-07-20] MEDS ORDERED: PERCOCET 5MG/325MG TAB PO PRN (10:30)
[2018-07-20] MEDS ORDERED: NALOXONE INJ 0.4 MG/1 ML VIAL (J2310) IV PRN (10:30)
[2018-07-20 14:00] VITALS: BP 137/85
[2018-07-20 16:15] VITALS: BP 130/86
[2018-07-20] MEDS: tiZANidine 4 MG TAB PO PRN (17:53)
[2018-07-20] MEDS: zolPIDEM TARTRATE 5 MG TAB PO SCH (20:56)
[2018-07-20] MEDS: PRAZOSIN 1 MG CAP PO SCH (20:59)
[2018-07-20] MEDS: TOPIRAMATE (TopAMAX) 100 MG TAB PO SCH (21:00)
[2018-07-20 22:00] VITALS: BP 144/99
[2018-07-21] MEDS: LEVOTHYROXINE 25MCG TABLET (0.025MG) PO SCH (05:17)
[2018-07-21 06:00] VITALS: BP 146/74
[2018-07-21 07:50] LABS: BASO # 0.1 10^3/uL (0.0-0.2); EOS # 0.3 10^3/uL (0.0-0.50); EOS % 3.4 % (0.0-3.0); HEMATOCRIT 34.5 % (36.0-47.0); HEMOGLOBIN 10.7 g/dl (12.0-15.5); LYMPH # 4.1 10^3/uL (1.5-4.5); MEAN CORPUSCULAR HEMOGLOBIN 29.6 pg (27.0-33.0); MEAN CORPUSCULAR VOLUME 95.6 fl (80.0-96.0); MONO # 0.9 10^3/uL (0.0-0.8); MONO % 9.6 % (0.0-5.0); NEUTROPHILS % 42.6 % (36.0-66.0); PLATELET COUNT, AUTOMATED 271 10^3/uL (150-450); RED BLOOD COUNT 3.61 10^6/uL (4.00-5.40); WHITE BLOOD COUNT 9.4 10^3/uL (4.0-10.0)
[2018-07-21 08:01] LABS: BLOOD UREA NITROGEN 13 MG/DL (7-18); CALCIUM LEVEL 8.8 MG/DL (8.5-10.1); CARBON DIOXIDE LEVEL 18 MEQ/L (21-32); CHLORIDE LEVEL 112 MEQ/L (98-107); GLOMERULAR FILTRATION RATE > 60.0 (>58); GLUCOSE, FASTING 193 MG/DL (70-100); POTASSIUM SERUM 4.1 MEQ/L (3.5-5.1); SODIUM LEVEL 139 MEQ/L (136-145)
[2018-07-21] MEDS: SYMBICORT 160/4.5MCG INHALER 6GM INH SCH (08:28)
[2018-07-21] MEDS: LEVEMIR (INSULIN DETEMIR) 1 UNITS/0.01ML SC SCH (08:46)
[2018-07-21] MEDS: LACTOBACILLUS ACIDOPHILUS CAP (BACID) PO SCH (08:47)
[2018-07-21] MEDS: CETIRIZINE (ZyrTEC) 10 MG TAB PO SCH (08:47)
[2018-07-21] MEDS: HumaLOG INSULIN (NovoLOG) PER UNIT SC SCH (08:47)
[2018-07-21] MEDS: BACTRIM 160MG/800MG DS TAB PO SCH (08:47)
[2018-07-21] MEDS: CEFDINIR 300 MG CAP (OMNICEF) PO SCH (08:47)
[2018-07-21] MEDS: busPIRone 10 MG TAB PO SCH (08:47)
[2018-07-21 08:48] VITALS: BP 146/74
[2018-07-21] MEDS: LISINOPRIL 10 MG TAB PO SCH (08:48)
[2018-07-21] MEDS: SUCRALFATE 1 GM TAB PO SCH (08:48)
[2018-07-21] MEDS: PANTOPRAZOLE 40MG TAB (PROTONIX) PO SCH (08:48)
[2018-07-21] MEDS: VITAMIN D 1,000 INTERNATIONAL UNITS TABLET PO SCH (08:48)
[2018-07-21] MEDS: hydrOXYzine 25 MG TAB PO SCH (08:48)
[2018-07-21] MEDS: GEMFIBROZIL 600 MG TAB PO SCH (08:48)
[2018-07-21] MEDS: GABAPENTIN 300 MG CAP PO SCH (08:48)
[2018-07-21] MEDS: diphenhydrAMINE CREAM 30GM TOP SCH (08:49)
[2018-07-21] MEDS: raNITIdine SYRUP 150 MG/10 ML UDC PO SCH (09:40)
[2018-07-21] MEDS ORDERED: RISATAB3 PO (10:24)
[2018-07-21] MEDS ORDERED: CEFD300CAP PO (10:24)
[2018-07-21] MEDS ORDERED: SULF1TAB93 PO (10:24)
--- NOTE | 2018-07-21 17:16 | DS.PDOC ---
Discharge Summary General Date of Admission July 16, 2018 at 13:43 Date of Discharge 07/21/2018 Discharge Summary PROCEDURES PERFORMED DURING STAY: [None]. ADMITTING DIAGNOSES / DISCHARGE DIAGNOSES: L preseptal cellulitis COMPLICATIONS/CHIEF COMPLAINT: Left eye lid swelling / tenderness / warmth / redness HISTORY OF PRESENT ILLNESS: Patient is a 47 yo Obese female presents to the ER with ongoing pain and redness of the left upper eyelid including the medial canthus which started on Friday when she woke up from a nap and noticed left medial canthus to be sore, followed by redness and swelling of the upper eyelid, prompting her to come to the ER. She was diagnosed with a stye and told to do compresses. Into , she c/o increasing pain, swelling, redness now involving the left side of her face and neck with pain radiating down the neck accompanied by pain when moving the eye and difficulty reading with both eyes. In the ER, she was afebrile, with visual acuity of 20/70 on the left, 20/40 on the right. She admits to having reading glasses. Extraocular muscles were intact on exam. CT maxillofacial: left preseptal cellulitis. Hospitalist was asked to admit as an inpatient for two mid nights for IV antibiotics. Dr. El Cordon, tellers supervisor physical education specialist, was consulted by the ER, and will follow the patient. HOSPITAL COURSE: Patient remained in the hospital for IV antibiotic therapy. She was placed on vancomycin and ceftriaxone. Clinically patient had a significant improvement of her left eyelid swelling, tenderness, warmth and redness. Patient remained afebrile and hemodynamically stable throughout hospital course. 1 day prior to discharge. Patient's medications were transitioned to Bactrim and Cefdinir. Patient continued to improve and was subsequently discharged home with follow up with Dr. Cordon, Ophthalmology. Case has been discussed with him. DISCHARGE MEDICATIONS: Please see below. ALLERGIES: Please see below. PHYSICAL EXAMINATION ON DISCHARGE: Vitals (See below) General: Lying in bed, no acute distress, comfortable, AAOx3 HEENT: L eye lid with mild swelling, no erythema, tenderness, drainage or redness noted CVS: RRR, +S1S2 Lungs: Fair air entry b/l, -w/r/r Abdomen: Soft, ND, NT Extremities: - Edema, - Calf tenderness LABORATORY DATA: Please see below. ACTIVITY: [As tolerated]. DISCHARGE PLAN: Follow up with Dr. Cordon within 7 days Remain compliant with treatment plan and medications Return to the ER if you experience any problems. DISPOSITION: Home, Self-Care. DISCHARGE CONDITION: [Stable]. TIME SPENT ON DISCHARGE: Greater than [25] minutes. Vital Signs/I&Os Vital Signs Date Time Temp Pulse Resp B/P (MAP) Pulse Ox O2 Delivery O2 Flow Rate FiO2 07/21/18 08:48 146/74 07/21/18 06:00 97.5 87 18 99 07/16/18 14:45 Room Air I&O- Last 24 Hours up to 6 AM 07/21/18 06:00 Intake Total 1920 ml Output Total 1000 ml Balance 920 ml Laboratory Data Labs 24H Laboratory Tests 2 07/20/18 20:07: Bedside Glucose (Misc Panel) 162H 07/21/18 07:26: Immature Granulocyte % (Auto) 0.4, White Blood Count 9.4, Red Blood Count 3.61L, Hemoglobin 10.7L, Hematocrit 34.5L, Mean Corpuscular Volume 95.6, Mean Corpuscular Hemoglobin 29.6, Mean Corpuscular Hemoglobin Concent 31.0L, Red Cell Distribution Width 14.2, Platelet Count 271, Neutrophils (%) (Auto) 42.6, Lymphocytes (%) (Auto) 43.0, Monocytes (%) (Auto) 9.6H, Eosinophils (%) (Auto) 3.4H, Basophils (%) (Auto) 1.0, Neutrophils # (Auto) 4.0, Lymphocytes # (Auto) 4.1, Monocytes # (Auto) 0.9H, Eosinophils # (Auto) 0.3, Basophils # (Auto) 0.1, Nucleated Red Blood Cells % (auto) 0.0 07/21/18 07:27: Anion Gap 9, Glomerular Filtration Rate > 60.0, Blood Urea Nitrogen 13, Creatinine 0.80, Sodium Level 139, Potassium Level 4.1, Chloride Level 112H, Carbon Dioxide Level 18L, Calcium Level 8.8 CBC/BMP Laboratory Tests 07/21/18 07:26 Red Blood Count 3.61 L, Mean Corpuscular Volume 95.6, Mean Corpuscular Hemoglobin 29.6, Mean Corpuscular Hemoglobin Concent 31.0 L, Red Cell Distribution Width 14.2, Neutrophils (%) (Auto) 42.6, Lymphocytes (%) (Auto) 43.0, Monocytes (%) (Auto) 9.6 H, Eosinophils (%) (Auto) 3.4 H, Basophils (%) (Auto) 1.0, Neutrophils # (Auto) 4.0, Lymphocytes # (Auto) 4.1, Monocytes # (Auto) 0.9 H, Eosinophils # (Auto) 0.3, Basophils # (Auto) 0.1 07/21/18 07:27 Calcium Level 8.8 FSBS Laboratory Tests Test 07/20/18 20:07 Range/Units Bedside Glucose (Misc Panel) 162 70-105 MG/DL Microbiology Microbiology 07/16/18 Blood Culture - Final, Complete NO GROWTH AFTER 5 DAYS 07/16/18 Blood Culture - Final, Complete NO GROWTH AFTER 5 DAYS 07/16/18 MRSA Screen - Final, Complete Staph.aureus Methicillin Resis Discharge Medications Scheduled Aripiprazole (Abilify) 5 Mg Tablet, 5 MG PO QHS, (Reported) Budesonide/Formoterol (Symbicort 160-4.5 Mcg Inhaler) 60 Puff/Inhaler Aers, 2 PUFF INH BID, (Reported) Buspirone HCl (Buspirone HCl) 30 Mg Tablet, 30 MG PO BID, (Reported) Cefdinir (Cefdinir) 300 Mg Capsule, 300 MG PO BID Cetirizine HCl (Cetirizine HCl) 10 Mg Tab, 10 MG PO DAILY, (Reported) Cholecalciferol (Vitamin D3) (Vitamin D3) 1,000 Unit Tab, 1,000 UNIT PO DAILY, (Reported) Gabapentin (Gabapentin) 300 Mg Cap, 300 MG PO TID, (Reported) Gemfibrozil (Gemfibrozil) 600 Mg Tab, 600 MG PO DAILY, (Reported) Hydrochlorothiazide (Hydrochlorothiazide) 25 Mg Tab, 25 MG PO DAILY, (Reported) Insulin Glargine,Hum.rec.anlog (Basaglar Kwikpen U-100) 100 Unit/Ml Inj, 70 UNIT SC BID, (Reported) Insulin Human Regular (Humulin R) 1 Units/0.01 Ml Soln, 1 DOSE SC ACHS, (Reported) PER SLIDING SCALE L.acidoph/L.bulg/B.bif/S.therm ([place]-Bid Caplet) 1 Each Tablet, 1 EA PO WMHS Levothyroxine Sodium (Synthroid) 25 Mcg Tab, 25 MCG PO DAILY, (Reported) Lisinopril (Lisinopril) 10 Mg Tab, 10 MG PO DAILY, (Reported) Pantoprazole Sodium (Protonix) 40 Mg Tab, 40 MG PO BID, (Reported) Prazosin Hcl (Prazosin HCl) 1 Mg Capsule, 3 MG PO QHS, (Reported) Sucralfate (Carafate) 1 Gm Tab, 1 GM PO ACHS, (Reported) Sulfamethoxazole/Trimethoprim (Sulfamethoxazole-Tmp Ds Tablet) 1 Each Tablet, 1 TAB PO Q12H Topiramate (Topiramate) 50 Mg Tab, 100 MG PO QHS, (Reported) Triamcinolone Acetonide (Triamcinolone Acetonide) 0.1 % Lot, 1 DOSE EXT BID, (Reported) USES ON ELBOWS AND FINGERS Venlafaxine HCl (Venlafaxine HCl ER) 150 Mg Tab.er.24, 150 MG PO DAILY, (Reported) Zolpidem Tartrate (Ambien) 5 Mg Tablet, 5 MG PO QHS, (Reported) Scheduled PRN Albuterol Sulfate (Ventolin Hfa) 108 Mcg/Act Aer, 2 PUFFS INH Q4H PRN for SHORTNESS OF BREATH, (Reported) Budesonide (Budesonide) 0.5 Mg/2 Ml Ampul.neb, 0.5 MG INH BID PRN for SHORTNESS OF BREATH, (Reported) Docusate Sodium (Colace) 100 Mg Cap, 100 MG PO DAILY PRN for CONSTIPATION, (Reported) Ibuprofen (Ibuprofen) 600 Mg Tablet, 600 MG PO Q6H PRN for PAIN, (Reported) Polyvinyl Alcohol (Artificial Tears) 1.4 % Debora, 1 DROP OU QID PRN for DRY EYES, (Reported) Sumatriptan Succinate (Sumatriptan Succinate) 50 Mg Tab, 50 MG PO BID PRN for MIGRAINE, (Reported) Tizanidine HCl (Tizanidine HCl) 4 Mg Tab, 4 MG PO TID PRN for MUSCLE SPASMS, (Reported) Allergies Coded Allergies: meclizine (Verified Allergy, Severe, shock, 07/15/18) prednisone (Verified Allergy, Intermediate, hives, 07/15/18) metformin (Verified Adverse Reaction, Intermediate, kidney problems, 07/15/18) RENNY BUSTILLOS MD July 21, 2018 17:16
== END 2018-07-21 12:20 | disposition home or self-care (01) | DRG 383 ==
LOC: M ED 10:38 → EEVIPCON 13:43 → M ED INP 13:43 → M MS4PR 14:57 → M MS5PR 07-20 15:30
PROVIDERS: ADMIT General Practice; ATTEND Internal Medicine
DX: L03.213 Periorbital cellulitis (principal); E11.42 Type 2 diabetes mellitus with diabetic polyneuropathy; E88.01 Alpha-1-antitrypsin deficiency; K76.0 Fatty (change of) liver, not elsewhere classified; G43.909 Migraine, unspecified, not intractable, without status migrainosus; E78.5 Hyperlipidemia, unspecified; I10 Essential (primary) hypertension; J44.9 Chronic obstructive pulmonary disease, unspecified; G47.33 Obstructive sleep apnea (adult) (pediatric); K21.9 Gastro-esophageal reflux disease without esophagitis; E03.9 Hypothyroidism, unspecified; M79.7 Fibromyalgia; G89.29 Other chronic pain; M54.5 Low back pain; R26.81 Unsteadiness on feet; F41.9 Anxiety disorder, unspecified; F32.9 Major depressive disorder, single episode, unspecified; E66.9 Obesity, unspecified; G47.00 Insomnia, unspecified; J30.9 Allergic rhinitis, unspecified; D64.9 Anemia, unspecified; F43.10 Post-traumatic stress disorder, unspecified; Z90.49 Acquired absence of other specified parts of digestive tract; Z79.899 Other long term (current) drug therapy; Z68.35 Body mass index [BMI] 35.0-35.9, adult; Z88.8 Allergy status to other drugs, medicaments and biological substances

== ENCOUNTER 2018-07-25 13:24 | Observation (INO) | payer OTHER ==
[~2018-07-25] VITALS: Ht 162.6 cm; Wt 96.3 kg
[~2018-07-25 13:24] MED LIST changes: +AMBI5TAB PO; +BUDE0.5S6 INH; +BUSP30TA PO; +PRAZ1CAP PO; +RISATAB3 PO; +SULF1TAB93 PO; +VENL150T24 PO
[2018-07-25] MEDS ORDERED: NS 1,000 ML IV ONE (13:45)
[2018-07-25 14:50] LABS: BASO # 0.1 10^3/uL (0.0-0.2); EOS # 0.3 10^3/uL (0.0-0.50); EOS % 3.1 % (0.0-3.0); HEMATOCRIT 36.4 % (36.0-47.0); HEMOGLOBIN 11.7 g/dl (12.0-15.5); LYMPH # 3.1 10^3/uL (1.5-4.5); LYMPH % 29.6 % (24.0-44.0); MEAN CORPUSCULAR HEMOGLOBIN 30.5 pg (27.0-33.0); MEAN CORPUSCULAR HGB CONC 32.1 g/dl (32.0-36.5); MEAN CORPUSCULAR VOLUME 94.8 fl (80.0-96.0); MONO # 1.3 10^3/uL (0.0-0.8); MONO % 12.1 % (0.0-5.0); NEUTROPHILS # 5.6 10^3/uL (1.8-7.7); NEUTROPHILS % 53.8 % (36.0-66.0); PLATELET COUNT, AUTOMATED 294 10^3/uL (150-450); RED BLOOD COUNT 3.84 10^6/uL (4.00-5.40); WHITE BLOOD COUNT 10.5 10^3/uL (4.0-10.0)
[2018-07-25 15:12] LABS: ALBUMIN 3.5 GM/DL (3.2-5.2); ALT/SGPT 111 U/L (12-78); BILIRUBIN,DIRECT < 0.1 MG/DL (0.0-0.2); BILIRUBIN,TOTAL 0.3 MG/DL (0.2-1.0); BLOOD UREA NITROGEN 20 MG/DL (7-18); CALCIUM LEVEL 8.6 MG/DL (8.5-10.1); CARBON DIOXIDE LEVEL 22 MEQ/L (21-32); CHLORIDE LEVEL 102 MEQ/L (98-107); CREATININE FOR GFR 1.53 MG/DL (0.55-1.30); GLOMERULAR FILTRATION RATE 39.1 (>58); GLUCOSE, FASTING 286 MG/DL (70-100); LIPASE 196 U/L (73-393); MAGNESIUM LEVEL 1.6 MG/DL (1.8-2.4); POTASSIUM SERUM 4.2 MEQ/L (3.5-5.1); SODIUM LEVEL 132 MEQ/L (136-145); TOTAL PROTEIN 7.6 GM/DL (6.4-8.2)
[2018-07-25] MEDS ORDERED: ISOVUE-370 76% 100ML VIAL (Q9967) As Ordered ONE (15:28)
[2018-07-25] MEDS ORDERED: MAG SULF 1GM/100ML (MAG RUN) 1 GM in APPROPRIATE DILUENT 1 EA IV ONE (16:00)
[2018-07-25 16:18] LABS: CPK CREATINE PHOSPHOKINASE 81 U/L (26-192); MB/CK RELATIVE INDEX 1.36 (< OR =4); TROPONIN I < 0.02 NG/ML (< 0.10)
[2018-07-25] MEDS ORDERED: cefTRIAXone SOD 1 GM in D5W MINI-BAG PLUS 50 ML IV ONE (16:30)
[2018-07-25] MEDS ORDERED: ACETAMINOPHEN TAB 650MG DOSE (2X325MG) PO ONE (16:30)
[2018-07-25] MEDS ORDERED: traMADol 50 MG TAB PO ONE (17:00)
[2018-07-25] MEDS ORDERED: BACT800T5 PO (17:47)
[2018-07-25] MEDS ORDERED: CEFD1CAP8 PO (17:47)
[2018-07-25] MEDS ORDERED: CVS1CAP2 PO (17:47)
[2018-07-25] MEDS ORDERED: ACETAMINOPHEN TAB 650MG DOSE (2X325MG) PO PRN (18:00)
[2018-07-25] MEDS ORDERED: SUMAtriptan SUCCINATE 25 MG TAB PO PRN (18:00)
[2018-07-25] MEDS ORDERED: DOCUSATE SODIUM 100 MG CAP PO PRN (18:00)
[2018-07-25] MEDS ORDERED: BUDESONIDE 0.5 MG/2 ML INHALATION SUSPENSION INH PRN (18:00)
[2018-07-25] MEDS ORDERED: ALBUTEROL 90 MCG/ACT 8GM HFA INHALER INH PRN (18:00)
[2018-07-25] MEDS ORDERED: GLUCAGON FOR INJ 1 MG VIAL (J1610) SC PRN (18:00)
[2018-07-25] MEDS ORDERED: GLUCOSE 4 GM CHEW TABLET PO PRN (18:00)
[2018-07-25] MEDS ORDERED: DEXTROSE 50% 50 ML SYRINGE IV PRN (18:00)
--- NOTE | 2018-07-25 18:54 | HPEPDOC ---
[facility] Medical History & Physical Date of Admission July 25, 2018 Primary Care Physician: ADALBERTO ANGELES DO Attending Physician: RASHMI BUSTILLOS MD History and Physical CHIEF COMPLAINT: Dizziness, lightheadedness HISTORY OF PRESENT ILLNESS: Patient is a 47 year old female with a past medical history significant for IDDM, peripheral neuropathy, hypertension, GERD, COPD, WANDY, and fibromyalgia who was recently discharged from [facility] on 07/21/2018 for L preseptal cellulitis who presented to the [facility] ER today with complaint of dizziness, lightheadedness, and an episode of joint pain. Patient stated that since her discharge she felt as if she was doing well. Yesterday she was watching her 1 year old grandson and had been more active then her daily routine. She stated that at night she felt whole body aching. She states that she has fibromyalgia however her pain was worse this time. She stated that this morning when she woke up she was lightheaded and felt like her legs were going to give out from under her. She denied falling. She denies any changes in her speech or gait. She does admit to decreased oral intake over the past few days. She states that she does not recall drinking much water yesterday and had only drank 2 Twisted Teas. Patient came to the emergency room as she continued to have lightheadedness. Once in the ER the patient was found to have othostatic hypotension and an acute kidney injury. She had a mildly elevated lactic acid of 2.1. She did have some electrolyte imbalances with hypomagnesemia and hyponatremia. She does have mild abdominal pain and an elevated ALT. Patient was given IV fluid and Ceftriaxone in the ER. Hospitalist service was consulted and the patient was admitted. PAST MEDICAL HISTORY: 1. IDDM 2. Hypertension 3. WANDY 4. COPD 5. Peripheral Neuropathy 6. Fuxxm-1-btajtxthfwj deficiency 7. Hypothyroid 8. Dyslipidemia 9. GERD 10. Fatty Liver 11. Fibromyalgia 12. Chronic anemia 13. Depression 14. Insomnia PAST SURGICAL HISTORY: 1. Cholecystectomy 2. Appendectomy 3. Section x3 4. Orthodontic surgery SOCIAL HISTORY: Patient is a local to [place]. She has 3 children and is currently . She does not currently work and is on disability 2/2 to her history of being a heterozygous kbcqs-[id number]. She admits to occasional a lcohol use. She denies illicit drug use. FAMILY HISTORY: Motheris alive with diabetes, atrial fibrillation, and essential tremor. Her father is alive with diabetes. She has 3 children. One with int ellectual disability ALLERGIES: Please see below. REVIEW OF SYSTEMS: CONSTITUTIONAL: Denies fevers, chills, nightsweats, unintentional weightloss or weight gain. HEENT: Denies cough or sore throat. Denies dysphagia. Admits to some blurry vision when standing CARDIOVASCULAR: Denies chest pain, palpitations, or feelings of the heart racing RESPIRATORY: Denies shortness of breath. Denies cough GASTROINTESTINAL: Admits to mild upper/midepigastric abdominal pain GENITOURINARY: Admits to mild dysuria SKIN: Admits to rash on inner thighs that started a few days ago but has gotten better MUSCULOSKELETAL: Admits to chronic msk pain. Admits to joint soreness NEUROLOGICAL: Admits to dizziness. Denies changes in speech. Admits to blurriness when standing but denies loss of vision. Denies changes in her gait PSYCHIATRIC: Admits to history of depression ENDOCRINE: Denies heat or cold intolerance HEMATOLOGIC/LYMPHATIC: Denies easy bruising or bleeding HOME MEDICATIONS: Please see below. PHYSICAL EXAMINATION: VITAL SIGNS: Temperature 97.3, pulse 116, respiratory rate 18, blood pressure 98/63, pulse oximetry 99% on room air. GENERAL APPEARANCE: Patient is awake, alert, and oriented. She is in no acute distress. She does not appear acutely ill. She is lying comfortably in stretcher HEENT: Atraumatic normocephalic. Eyes are nonicteric. Trachea is midline. Mucous membranes are dry. Dentition is fair CARDIOVASCULAR: Normal S1, S2. Regular rhythm. Tachycardic. No clicks, rubs, or murmurs LUNGS: Clear vesicular sounds bilaterally with good respiratory effort. No wheezes, rhonci, or rales. ABDOMEN: Obese, soft, nondistended. Slight tenderness to palpation of midepigastric region. No rebound tenderness or guarding. Positive bowel sounds MUSCULOSKELETAL: Bilateral knee exam without effusion, crepitus, or joint line tenderness. EXTREMITIES: No edema. Pulses are full and equal in bilateral upper and lower extremities NEUROLOGICAL: No focal neurological deficits PSYCHIATRIC: Mood and affect appear appropriate LABORATORY DATA: See below. MICROBIOLOGY: Please see below. ASSESSMENT: Patient is a 47 year old female with a past medical history significant for IDDM, COPD, WANDY, Nswlu-6-njqyhjprcbr deficiency, and fibromyalgia who presented to the [facility] ER with complaint of lightheadedness and dizziness and was found to be orthostatic with an acute injury. PLAN: 1. Acute Kidney Injury likely 2/2 to dehydration from decreased oral intake -Patient presented with a Cr of 1.53. Her average Cr is 0.70-0.80. Patient admitted to decreased oral intake. She is also taking multiple nephrotoxic agents. -Will hold all nephrotoxic medications -IV fluid hydration w/ 2L normal saline -Monitor Cr. 2. Orthostatic Hypotension 2/2 dehydration -Patient was orthostatic on presentation likely secondary to dehydration. She has received Iv fluids in the ER will continue IV hydration -Repeat orthostatic vital signs in the AM 3. Hypomagnesemia -Patient received Mag run in ER. -Monitor and replete PRN 4. Yeast Infection -Diflucan 150mg x1 5. IDDM -Continue basal coverage. Levemir 70 units BID -Sliding scale AC/HS 6. Elevated Tranaminases -Patient has mildly elevated transaminases. She has had a cholecystectomy in the past. -Patient does have a history of non-alcoholic fatty liver disease -Will monitor 7. GERD -Patient has a history of GERD. She states that she has epigastric pain and was recently told she may have an ulcer -Continue home protonix PO and carafate 8. HTN -Holding hydrochlorothiazide and lisinopril due to MARITZA and orthostatic hypotension -Holding Prazosin secondary to positive orthostatics 9. Hypothyroidism -Continue Synthroid 10. Recent Preseptal Cellulitis -Continue Cefdinir -Patient follows up with ophthalmology on Friday 11. COPD -Pulmicort, Proventil, Symbicort 12. Migraine Disorder -Topiramate 100mg QHS -Sumitriptan PRN 13. Depression -Venlafaxine -Aripiprazole -Buspirone 14. Insomnia -Zolpidem 15. DVT prophylaxis -Mechanical prophylaxis w/ TEDs and Sequentials. Low risk of PE as predicted duration of hospitalization <48 hours Vital Signs Vital Signs Date Time Temp Pulse Resp B/P (MAP) Pulse Ox O2 Delivery O2 Flow Rate FiO2 07/25/18 17:09 94 100 07/25/18 17:07 18 07/25/18 17:00 114/58 (76) 07/25/18 13:24 97.3 Room Air Laboratory Data Labs 24H Laboratory Tests 2 07/25/18 14:11: Lactic Acid Level 2.1*H 07/25/18 14:21: Bedside Glucose (Misc Panel) 274H 07/25/18 14:38: Immature Granulocyte % (Auto) 0.4, White Blood Count 10.5H, Red Blood Count 3.84L, Hemoglobin 11.7L, Hematocrit 36.4, Mean Corpuscular Volume 94.8, Mean Corpuscular Hemoglobin 30.5, Mean Corpuscular Hemoglobin Concent 32.1, Red Cell Distribution Width 14.2, Platelet Count 294, Neutrophils (%) (Auto) 53.8, Lymphocytes (%) (Auto) 29.6, Monocytes (%) (Auto) 12.1H, Eosinophils (%) (Auto) 3.1H, Basophils (%) (Auto) 1.0, Neutrophils # (Auto) 5.6, Lymphocytes # (Auto) 3.1, Monocytes # (Auto) 1.3H, Eosinophils # (Auto) 0.3, Basophils # (Auto) 0.1, Nucleated Red Blood Cells % (auto) 0.0, Anion Gap 8, Glomerular Filtration Rate 39.1L, Calcium Level 8.6, Magnesium Level 1.6L, Aspartate Amino Transf (AST/SGOT) 59H, Alanine Aminotransferase (ALT/SGPT) 111H, Alkaline Phosphatase 190H, Total Bilirubin 0.3, Direct Bilirubin < 0.1, Total Creatine Kinase 81, Creatine Kinase MB 1.0, Creatine Kinase MB Relative Index 1.36, Troponin I < 0.02, Total Protein 7.6, Albumin 3.5, Albumin/Globulin Ratio 0.85L, Lipase 196 07/25/18 15:47: Urine Color YELLOW, Urine Appearance HAZY, Urine pH 6.0, Urine Specific [place] 1.006, Urine Protein NEGATIVE, Urine Glucose (UA) 1+H, Urine Ketones NEGATIVE, Urine Blood NEGATIVE, Urine Nitrite NEGATIVE, Urine Bilirubin NEGATIVE, Urine Urobilinogen 0.2, Urine Leukocyte Esterase TRACEH, Urine WBC (Auto) 4H, Urine RBC (Auto) 2, Urine Hyaline Casts (Auto) 0, Urine Bacteria (Auto) 1+H, Urine Squamous Epithelial Cells 12, Urine Mucus (Auto) SMALL, Urine Sperm (Auto) CBC/BMP Laboratory Tests 07/25/18 14:38 Red Blood Count 3.84 L, Mean Corpuscular Volume 94.8, Mean Corpuscular Hemoglobin 30.5, Mean Corpuscular Hemoglobin Concent 32.1, Red Cell Distribution Width 14.2, Neutrophils (%) (Auto) 53.8, Lymphocytes (%) (Auto) 29.6, Monocytes (%) (Auto) 12.1 H, Eosinophils (%) (Auto) 3.1 H, Basophils (%) (Auto) 1.0, Neutrophils # (Auto) 5.6, Lymphocytes # (Auto) 3.1, Monocytes # (Auto) 1.3 H, Eosinophils # (Auto) 0.3, Basophils # (Auto) 0.1 Microbiology Microbiology 07/25/18 Urine Culture, Received Pending Home Medications Scheduled Aripiprazole (Abilify) 5 Mg Tablet, 5 MG PO QHS Budesonide/Formoterol (Symbicort 160-4.5 Mcg Inhaler) 60 Puff/Inhaler Aers, 2 PUFF INH BID Buspirone HCl (Buspirone HCl) 30 Mg Tablet, 30 MG PO BID Cefdinir (Cefdinir) 300 Mg Capsule, 300 MG PO BID FILLED 07/16/18 FOR 10 DAYS Cetirizine HCl (Cetirizine HCl) 10 Mg Tab, 10 MG PO DAILY Cholecalciferol (Vitamin D3) (Vitamin D3) 1,000 Unit Tab, 1,000 UNIT PO DAILY Gabapentin (Gabapentin) 300 Mg Cap, 300 MG PO TID Gemfibrozil (Gemfibrozil) 600 Mg Tab, 600 MG PO DAILY Hydrochlorothiazide (Hydrochlorothiazide) 25 Mg Tab, 25 MG PO DAILY Insulin Glargine,Hum.rec.anlog (Basaglar Kwikpen U-100) 100 Unit/Ml Inj, 70 UNIT SC BID Insulin Human Regular (Humulin R) 1 Units/0.01 Ml Soln, 1 DOSE SC ACHS PER SLIDING SCALE Lactobacillus Combo No.10 (Probiotic) 1 Each Capsule, 1 CAP PO QHS Levothyroxine Sodium (Synthroid) 25 Mcg Tab, 25 MCG PO DAILY Lisinopril (Lisinopril) 10 Mg Tab, 10 MG PO DAILY Pantoprazole Sodium (Protonix) 40 Mg Tab, 40 MG PO BID Prazosin Hcl (Prazosin HCl) 1 Mg Capsule, 3 MG PO QHS Sucralfate (Carafate) 1 Gm Tab, 1 GM PO ACHS Sulfamethoxazole/Trimethoprim (Bactrim Ds Tablet) 1 Each Tablet, 1 TAB PO BID FILLED 07/21/18 FOR 10 DAYS Topiramate (Topiramate) 50 Mg Tab, 100 MG PO QHS Triamcinolone Acetonide (Triamcinolone Acetonide) 0.1 % Lot, 1 DOSE EXT BID USES ON ELBOWS AND FINGERS Venlafaxine HCl (Venlafaxine HCl ER) 150 Mg Tab.er.24, 150 MG PO DAILY Zolpidem Tartrate (Ambien) 5 Mg Tablet, 5 MG PO QHS Scheduled PRN Albuterol Sulfate (Ventolin Hfa) 108 Mcg/Act Aer, 2 PUFFS INH Q4H PRN for SHORTNESS OF BREATH Budesonide (Budesonide) 0.5 Mg/2 Ml Ampul.neb, 0.5 MG INH BID PRN for SHORTNESS OF BREATH Docusate Sodium (Colace) 100 Mg Cap, 100 MG PO DAILY PRN for CONSTIPATION Ibuprofen (Ibuprofen) 600 Mg Tablet, 600 MG PO Q6H PRN for PAIN Polyvinyl Alcohol (Artificial Tears) 1.4 % Debora, 1 DROP OU QID PRN for DRY EYES Sumatriptan Succinate (Sumatriptan Succinate) 50 Mg Tab, 50 MG PO BID PRN for MIGRAINE Tizanidine HCl (Tizanidine HCl) 4 Mg Tab, 4 MG PO TID PRN for MUSCLE SPASMS Allergies Coded Allergies: meclizine (Verified Allergy, Severe, shock, 07/15/18) prednisone (Verified Allergy, Intermediate, hives, 07/15/18) metformin (Verified Adverse Reaction, Intermediate, kidney problems, 07/15/18) A-FIB/CHADSVASC A-FIB History Current/History of A-Fib/PAF?: No GME ATTESTATION GME ATTESTATION My faculty preceptor for this patient encounter was physically present during the encounter and was fully available. All aspects of the patient interview, examination, medical decision making process, and medical care plan development were reviewed and approved by the faculty preceptor. The faculty preceptor is aware and concurs with the plan as stated in the body of this note and will attest to such by his/her cosignature. ATTENDING NOTE I, Rashmi Bustillos, have both independently examined this patient as well as reviewed the documentation. I have discussed in detail with the resident the findings and plan of treatment as documented by the resident. I agree with their findings and treatment plan. I will continue to follow the patient and offer further guidance to the patients care as necessary during this hospital stay. SHEA CAPONE DO July 25, 2018 17:55 RASHMI BUSTILLOS MD July 25, 2018 19:09
[2018-07-25] MEDS ORDERED: FLUCONAZOLE 50MG TABLET PO ONE (19:30)
[2018-07-25] MEDS: NS 1,000 ML IV SCH (19:45)
[2018-07-25] MEDS ORDERED: SYMBICORT 160/4.5MCG INHALER 6GM INH SCH (20:00)
[2018-07-25] MEDS: CEFDINIR 300 MG CAP (OMNICEF) PO SCH (20:13)
[2018-07-25 20:30] VITALS: BP 160/87
[2018-07-25] MEDS ORDERED: PRAZOSIN 1 MG CAP PO SCH (21:00)
[2018-07-25] MEDS ORDERED: zolPIDEM TARTRATE 5 MG TAB PO SCH (21:00)
[2018-07-25] MEDS ORDERED: TOPIRAMATE (TopAMAX) 25 MG TAB PO SCH (21:00)
[2018-07-25] MEDS ORDERED: HumaLOG INSULIN (NovoLOG) PER UNIT SC SCH (21:00)
[2018-07-25] MEDS: SUCRALFATE 1 GM TAB PO SCH (21:58)
[2018-07-25] MEDS: busPIRone 10 MG TAB PO SCH (21:58)
[2018-07-25] MEDS: PANTOPRAZOLE 40MG TAB (PROTONIX) PO SCH (21:58)
[2018-07-25] MEDS: LEVEMIR (INSULIN DETEMIR) 1 UNITS/0.01ML SC SCH (21:59)
[2018-07-25 22:00] VITALS: BP 157/90
[2018-07-26] MEDS: NS 1,000 ML IV SCH (03:30)
[2018-07-26 06:00] VITALS: BP 171/94
[2018-07-26 06:33] LABS: HEMATOCRIT 35.8 % (36.0-47.0); HEMOGLOBIN 11.3 g/dl (12.0-15.5); MEAN CORPUSCULAR HEMOGLOBIN 29.9 pg (27.0-33.0); MEAN CORPUSCULAR HGB CONC 31.6 g/dl (32.0-36.5); MEAN CORPUSCULAR VOLUME 94.7 fl (80.0-96.0); PLATELET COUNT, AUTOMATED 275 10^3/uL (150-450); RED BLOOD COUNT 3.78 10^6/uL (4.00-5.40)
[2018-07-26 06:54] LABS: BLOOD UREA NITROGEN 15 MG/DL (7-18); CALCIUM LEVEL 8.8 MG/DL (8.5-10.1); CARBON DIOXIDE LEVEL 26 MEQ/L (21-32); CHLORIDE LEVEL 105 MEQ/L (98-107); CREATININE FOR GFR 0.95 MG/DL (0.55-1.30); GLOMERULAR FILTRATION RATE > 60.0 (>58); GLUCOSE, FASTING 76 MG/DL (70-100); POTASSIUM SERUM 3.4 MEQ/L (3.5-5.1); SODIUM LEVEL 137 MEQ/L (136-145)
[2018-07-26] MEDS ORDERED: POTASSIUM CHLORIDE 10 MEQ SR TABLET PO ONE (07:15)
[2018-07-26] MEDS ORDERED: HumaLOG INSULIN (NovoLOG) PER UNIT SC SCH (07:30)
[2018-07-26] MEDS: LEVEMIR (INSULIN DETEMIR) 1 UNITS/0.01ML SC SCH (07:40)
--- NOTE | 2018-07-26 07:41 | REP ---
CT ABDOMEN AND PELVIS WITH IV BUT WITHOUT ORAL CONTRAST: HISTORY: Abdomen pain. COMPARISON STUDY: March 14, 2018 CT CONTRAST DOSE: 100 mL of intravenous Isovue 370. CT FINDINGS: Preliminary consulting application engineer radiograph shows clips in right upper quadrant. Bowel gas pattern is normal. Some clothing artifact is seen. Axial CT images at lung window settings demonstrate that the lung bases are clear. There is no evidence of pleural effusion or upper abdominal ascites. There is fatty infiltration of the liver. No focal liver lesion is seen. Clips are noted in the gallbladder fossa post cholecystectomy. The spleen is normal in size, homogeneous in texture. No adrenal lesion is seen on either side. Pancreas is unremarkable. The common bile duct is normal post cholecystectomy and unchanged measuring 8 mm in greatest diameter. Kidneys enhance symmetrically and are morphologically intact. Celiac, superior mesenteric, and inferior mesenteric as well as renal arteries are unremarkable. No retroperitoneal mass or adenopathy is observed. There are clips medial to the cecum. The appendix is surgically absent. No uterine or ovarian abnormality is observed on either side. Urinary bladder is largely empty but appears intact. No abdominal wall defect is appreciated. No urinary tract calculus or hydronephrosis is seen. There is moderate stool in the proximal colon, transverse colon, and descending colon. IMPRESSION: Diffuse fatty infiltration of the liver. Post cholecystectomy and appendectomy. No acute intra-abdominal abnormality. Moderate proximal colonic stool. Electronically Signed by Emil Booker MD 07/26/2018 07:44 A
[2018-07-26] MEDS ORDERED: LEVEMIR (INSULIN DETEMIR) 1 UNITS/0.01ML SC ONE (07:45)
[2018-07-26] MEDS ORDERED: DOXY-350 PO (07:52)
[2018-07-26] MEDS ORDERED: AMLO5TAB6 PO (07:52)
[2018-07-26] MEDS ORDERED: LISINOPRIL 10 MG TAB PO ONE (08:00)
[2018-07-26 08:28] VITALS: BP 171/94
[2018-07-26] MEDS: CEFDINIR 300 MG CAP (OMNICEF) PO SCH (08:28)
[2018-07-26] MEDS: busPIRone 10 MG TAB PO SCH (08:28)
[2018-07-26] MEDS: SUCRALFATE 1 GM TAB PO SCH (08:28)
[2018-07-26] MEDS: PANTOPRAZOLE 40MG TAB (PROTONIX) PO SCH (08:28)
[2018-07-26] MEDS ORDERED: VITAMIN D 1,000 INTERNATIONAL UNITS TABLET PO SCH (09:00)
[2018-07-26] MEDS ORDERED: GEMFIBROZIL 600 MG TAB PO SCH (09:00)
[2018-07-26] MEDS ORDERED: LEVOTHYROXINE 25MCG TABLET (0.025MG) PO SCH (09:00)
[2018-07-26] MEDS ORDERED: VENLAFAXINE **XR** 75MG CAPSULE PO SCH (09:00)
[2018-07-26] MEDS ORDERED: CETIRIZINE (ZyrTEC) 10 MG TAB PO SCH (09:00)
--- NOTE | 2018-07-26 12:06 | DS.PDOC ---
Discharge Summary General Date of Admission July 25, 2018 at 18:11 Date of Discharge 07/26/2018 Discharge Summary PROCEDURES PERFORMED DURING STAY: [None]. ADMITTING DIAGNOSES / DISCHARGE DIAGNOSES: s/p Dizziness / Light-headedness s/p MARITZA Possible yeast infection - s/p Diflucan x1 IDDM Hypertension WANDY COPD Peripheral Neuropathy Jvknd-[id number] deficiency Hypothyroid Dyslipidemia GERD Fatty Liver Fibromyalgia Chronic anemia Depression Insomnia DVT prophylaxis COMPLICATIONS/CHIEF COMPLAINT: Dizziness; found to have positive orthostatic vital signs in ER HISTORY OF PRESENT ILLNESS: Patient is 47-year-old female with a past medical history significant for IDDM, peripheral neuropathy, hypertension, GERD, COPD, WANDY, and fibromyalgia who was recently discharged from [facility] on 07/21/2018 for L preseptal cellulitis who presented to the [facility] ER today with complaint of dizziness, lightheadedness, and an episode of joint pain. Patient stated that since her discharge she felt as if she was doing well. Yesterday she was watching her 1 year old grandson and had been more active then her daily routine. She stated that at night she felt whole body aching. She states that she has fibromyalgia however her pain was worse this time. She stated that this morning when she woke up she was lightheaded and felt like her legs were going to give out from under her. She denied falling. She denies any changes in her speech or gait. She does admit to decreased oral intake over the past few days. She states that she does not recall drinking much water yesterday and had only drank 2 Twisted Teas. Patient came to the emergency room as she continued to have lightheadedness. HOSPITAL COURSE: Patient was placed on observation under the hospitalist service for acute kidney injury and orthostatic hypotension. Patient received IV fluid hydration over 24 hours. Orthostatic vital signs have resolved her acute kidney injury has resolved and her kidney function now down to her baseline. Nephrotoxic medications were discontinued. As an outpatient. Patient was taking Bactrim, this has been replaced with doxycycline and she will follow-up with her broomcorn scraper tomorrow afternoon. DISCHARGE MEDICATIONS: Please see below. ALLERGIES: Please see below. PHYSICAL EXAMINATION ON DISCHARGE: VITAL SIGNS: Please see below. Vitals (See below) General: Lying in bed, no acute distress, comfortable, AAOx3 HEENT: NC, AT CVS: RRR, +S1S2 Lungs: Fair air entry b/l, auscultation is without wheezing, rales or rhonchi Abdomen: Soft, ND, NT Extremities: - Edema, - Calf tenderness LABORATORY DATA: Please see below. ACTIVITY: [As tolerated]. DISCHARGE PLAN: Follow-up with Dr. Oswaldo Anderson within 7 days; and ophthalmology 07/27/18 afternoon Remain compliant with treatment plan and medications Return to the ER if you experience any problems DISPOSITION: Home, Self-Care. DISCHARGE CONDITION: [Stable]. TIME SPENT ON DISCHARGE: Greater than [35] minutes. Vital Signs/I&Os Vital Signs Date Time Temp Pulse Resp B/P (MAP) Pulse Ox O2 Delivery O2 Flow Rate FiO2 07/26/18 08:28 171/94 07/26/18 06:00 97.1 92 18 96 07/25/18 20:00 Room Air I&O- Last 24 Hours up to 6 AM 07/26/18 06:00 Intake Total 1810 ml Output Total 900 ml Balance 910 ml Laboratory Data Labs 24H Laboratory Tests 2 07/25/18 14:11: Lactic Acid Level 2.1*H 07/25/18 14:21: Bedside Glucose (Misc Panel) 274H 07/25/18 14:38: Immature Granulocyte % (Auto) 0.4, White Blood Count 10.5H, Red Blood Count 3.84L, Hemoglobin 11.7L, Hematocrit 36.4, Mean Corpuscular Volume 94.8, Mean Corpuscular Hemoglobin 30.5, Mean Corpuscular Hemoglobin Concent 32.1, Red Cell Distribution Width 14.2, Platelet Count 294, Neutrophils (%) (Auto) 53.8, Lymphocytes (%) (Auto) 29.6, Monocytes (%) (Auto) 12.1H, Eosinophils (%) (Auto) 3.1H, Basophils (%) (Auto) 1.0, Neutrophils # (Auto) 5.6, Lymphocytes # (Auto) 3.1, Monocytes # (Auto) 1.3H, Eosinophils # (Auto) 0.3, Basophils # (Auto) 0.1, Nucleated Red Blood Cells % (auto) 0.0, Anion Gap 8, Glomerular Filtration Rate 39.1L, Calcium Level 8.6, Magnesium Level 1.6L, Aspartate Amino Transf (AST/SGOT) 59H, Alanine Aminotransferase (ALT/SGPT) 111H, Alkaline Phosphatase 190H, Total Bilirubin 0.3, Direct Bilirubin < 0.1, Total Creatine Kinase 81, Creatine Kinase MB 1.0, Creatine Kinase MB Relative Index 1.36, Troponin I < 0.02, Total Protein 7.6, Albumin 3.5, Albumin/Globulin Ratio 0.85L, Lipase 196 07/25/18 15:47: Urine Color YELLOW, Urine Appearance HAZY, Urine pH 6.0, Urine Specific [place] 1.006, Urine Protein NEGATIVE, Urine Glucose (UA) 1+H, Urine Ketones NEGATIVE, Urine Blood NEGATIVE, Urine Nitrite NEGATIVE, Urine Bilirubin NEGATIVE, Urine Urobilinogen 0.2, Urine Leukocyte Esterase TRACEH, Urine WBC (Auto) 4H, Urine RBC (Auto) 2, Urine Hyaline Casts (Auto) 0, Urine Bacteria (Auto) 1+H, Urine Squamous Epithelial Cells 12, Urine Mucus (Auto) SMALL, Urine Sperm (Auto) 07/25/18 19:39: Lactic Acid Followup at 4 Hours 1.7 07/25/18 20:47: Bedside Glucose (Misc Panel) 198H 07/26/18 05:44: Nucleated Red Blood Cells % (auto) 0.0, Anion Gap 6L, Glomerular Filtration Rate > 60.0, Blood Urea Nitrogen 15, Creatinine 0.95, Sodium Level 137, Potassium Level 3.4L, Chloride Level 105, Carbon Dioxide Level 26, Calcium Level 8.8 CBC/BMP Laboratory Tests 07/25/18 14:38 Red Blood Count 3.84 L, Mean Corpuscular Volume 94.8, Mean Corpuscular Hemoglobin 30.5, Mean Corpuscular Hemoglobin Concent 32.1, Red Cell Distribution Width 14.2, Neutrophils (%) (Auto) 53.8, Lymphocytes (%) (Auto) 29.6, Monocytes (%) (Auto) 12.1 H, Eosinophils (%) (Auto) 3.1 H, Basophils (%) (Auto) 1.0, Neutrophils # (Auto) 5.6, Lymphocytes # (Auto) 3.1, Monocytes # (Auto) 1.3 H, Eosinophils # (Auto) 0.3, Basophils # (Auto) 0.1 07/26/18 05:44 Red Blood Count 3.78 L, Mean Corpuscular Volume 94.7, Mean Corpuscular Hemoglobin 29.9, Mean Corpuscular Hemoglobin Concent 31.6 L, Red Cell Distribution Width 14.3, Calcium Level 8.8 FSBS Laboratory Tests Test 07/25/18 14:21 07/25/18 20:47 Range/Units Bedside Glucose (Misc Panel) 274 198 70-105 MG/DL Microbiology Microbiology 07/25/18 Urine Culture - Final, Complete Discharge Medications Scheduled Amlodipine Besylate (Amlodipine Besylate) 5 Mg Tablet, 1 TAB PO DAILY Aripiprazole (Abilify) 5 Mg Tablet, 5 MG PO QHS, (Reported) Budesonide/Formoterol (Symbicort 160-4.5 Mcg Inhaler) 60 Puff/Inhaler Aers, 2 PUFF INH BID, (Reported) Buspirone HCl (Buspirone HCl) 30 Mg Tablet, 30 MG PO BID, (Reported) Cefdinir (Cefdinir) 300 Mg Capsule, 300 MG PO BID, (Reported) FILLED 07/16/18 FOR 10 DAYS Cetirizine HCl (Cetirizine HCl) 10 Mg Tab, 10 MG PO DAILY, (Reported) Cholecalciferol (Vitamin D3) (Vitamin D3) 1,000 Unit Tab, 1,000 UNIT PO DAILY, (Reported) Doxycycline Monohydrate (Doxycycline) 100 Mg Capsule, 1 CAP PO BID Gabapentin (Gabapentin) 300 Mg Cap, 300 MG PO TID, (Reported) Gemfibrozil (Gemfibrozil) 600 Mg Tab, 600 MG PO DAILY, (Reported) Insulin Glargine,Hum.rec.anlog (Basaglar Kwikpen U-100) 100 Unit/Ml Inj, 70 UNIT SC BID, (Reported) Insulin Human Regular (Humulin R) 1 Units/0.01 Ml Soln, 1 DOSE SC ACHS, (Reported) PER SLIDING SCALE Lactobacillus Combo No.10 (Probiotic) 1 Each Capsule, 1 CAP PO QHS, (Reported) Levothyroxine Sodium (Synthroid) 25 Mcg Tab, 25 MCG PO DAILY, (Reported) Lisinopril (Lisinopril) 10 Mg Tab, 10 MG PO DAILY, (Reported) Pantoprazole Sodium (Protonix) 40 Mg Tab, 40 MG PO BID, (Reported) Prazosin Hcl (Prazosin HCl) 1 Mg Capsule, 3 MG PO QHS, (Reported) Sucralfate (Carafate) 1 Gm Tab, 1 GM PO ACHS, (Reported) Topiramate (Topiramate) 50 Mg Tab, 100 MG PO QHS, (Reported) Triamcinolone Acetonide (Triamcinolone Acetonide) 0.1 % Lot, 1 DOSE EXT BID, (Reported) USES ON ELBOWS AND FINGERS Venlafaxine HCl (Venlafaxine HCl ER) 150 Mg Tab.er.24, 150 MG PO DAILY, (Reported) Zolpidem Tartrate (Ambien) 5 Mg Tablet, 5 MG PO QHS, (Reported) Scheduled PRN Albuterol Sulfate (Ventolin Hfa) 108 Mcg/Act Aer, 2 PUFFS INH Q4H PRN for SHORTNESS OF BREATH, (Reported) Budesonide (Budesonide) 0.5 Mg/2 Ml Ampul.neb, 0.5 MG INH BID PRN for SHORTNESS OF BREATH, (Reported) Docusate Sodium (Colace) 100 Mg Cap, 100 MG PO DAILY PRN for CONSTIPATION, (Reported) Polyvinyl Alcohol (Artificial Tears) 1.4 % Debora, 1 DROP OU QID PRN for DRY EYES, (Reported) Sumatriptan Succinate (Sumatriptan Succinate) 50 Mg Tab, 50 MG PO BID PRN for MIGRAINE, (Reported) Tizanidine HCl (Tizanidine HCl) 4 Mg Tab, 4 MG PO TID PRN for MUSCLE SPASMS, (Reported) Allergies Coded Allergies: meclizine (Verified Allergy, Severe, shock, 07/15/18) prednisone (Verified Allergy, Intermediate, hives, 07/15/18) metformin (Verified Adverse Reaction, Intermediate, kidney problems, 07/15/18) RENNY BUSTILLOS MD July 26, 2018 12:06
== END 2018-07-26 09:20 | disposition home or self-care (01) ==
LOC: M ED 13:24 → M ED INP 18:11 → M MS5PR 20:31
PROVIDERS: ADMIT Internal Medicine; ATTEND Internal Medicine
DX: N17.9 Acute kidney failure, unspecified (principal); I95.1 Orthostatic hypotension; E83.42 Hypomagnesemia; E87.1 Hypo-osmolality and hyponatremia; R74.0 Nonspecific elevation of levels of transaminase and lactic acid dehydrogenase [LDH]; L03.213 Periorbital cellulitis; B37.3 Candidiasis of vulva and vagina; E11.9 Type 2 diabetes mellitus without complications; I10 Essential (primary) hypertension; G47.33 Obstructive sleep apnea (adult) (pediatric); J44.9 Chronic obstructive pulmonary disease, unspecified; G62.9 Polyneuropathy, unspecified; E88.01 Alpha-1-antitrypsin deficiency; E03.9 Hypothyroidism, unspecified; E78.5 Hyperlipidemia, unspecified; K21.9 Gastro-esophageal reflux disease without esophagitis; K76.0 Fatty (change of) liver, not elsewhere classified; M79.7 Fibromyalgia; G43.909 Migraine, unspecified, not intractable, without status migrainosus; F32.9 Major depressive disorder, single episode, unspecified; G47.00 Insomnia, unspecified; D64.9 Anemia, unspecified; Z79.899 Other long term (current) drug therapy; Z79.51 Long term (current) use of inhaled steroids; Z79.2 Long term (current) use of antibiotics; Z79.4 Long term (current) use of insulin; Z88.8 Allergy status to other drugs, medicaments and biological substances
CPT/HCPCS: 36415; 74177; 80048; 80076; 81001; 82550; 82553; 83605; 83690; 83735; 85025; 85027; 87086; 93041; 94640; 96365; 96367; 99285; J0696; J3475; Q9967

== ENCOUNTER 2018-08-19 17:04 | Emergency (ER) | payer OTHER ==
[~2018-08-19] VITALS: Ht 162.6 cm; Wt 92.0 kg
[2018-08-19 17:04] VITALS: BP 147/91
[~2018-08-19 17:04] MED LIST changes: +AMLO5TAB6 PO; +BACT800T5 PO; +CVS1CAP2 PO; +MACR100C43 PO; +ONDA4TAB6 PO
[2018-08-19 19:49] LABS: HEMATOCRIT 36.7 % (36.0-47.0); HEMOGLOBIN 11.7 g/dl (12.0-15.5); MEAN CORPUSCULAR HEMOGLOBIN 28.9 pg (27.0-33.0); MEAN CORPUSCULAR HGB CONC 31.9 g/dl (32.0-36.5); MEAN CORPUSCULAR VOLUME 90.6 fl (80.0-96.0); PLATELET COUNT, AUTOMATED 302 10^3/uL (150-450); RED BLOOD COUNT 4.05 10^6/uL (4.00-5.40); WHITE BLOOD COUNT 8.9 10^3/uL (4.0-10.0)
[2018-08-19 20:21] LABS: BLOOD UREA NITROGEN 10 MG/DL (7-18); CARBON DIOXIDE LEVEL 26 MEQ/L (21-32); CHLORIDE LEVEL 105 MEQ/L (98-107); CREATININE FOR GFR 0.75 MG/DL (0.55-1.30); GLOMERULAR FILTRATION RATE > 60.0 (>58); GLUCOSE, FASTING 235 MG/DL (70-100); POTASSIUM SERUM 3.3 MEQ/L (3.5-5.1); SODIUM LEVEL 139 MEQ/L (136-145)
[2018-08-19] MEDS ORDERED: NS 1,000 ML IV ONE (20:30)
--- NOTE | 2018-08-19 21:30 | REPVR ---
EXAM: CT Abdomen and Pelvis Without Contrast EXAM DATE/TIME: 08/19/2018 8:36 PM CLINICAL HISTORY: 47 years old, female; Abdominal pain; Flank; Left; Additional info: Left back/low abd pain/dysuria TECHNIQUE: Imaging protocol: Axial computed tomography images of the abdomen and pelvis without contrast. Coronal and sagittal reformatted images were created and reviewed. Radiation optimization: All CT scans at this facility use at least one of these dose optimization techniques: automated exposure control; mA and/or kV adjustment per patient size (includes targeted exams where dose is matched to clinical indication); or iterative reconstruction. COMPARISON: CT ABD/PEL W/IV CONTRAST ONLY 08/15/2018 7:40 PM FINDINGS: Lungs: Punctate calcified granuloma of the right lung base. ABDOMEN: Liver: Normal. No mass. Gallbladder and bile ducts: Gallbladder is surgically absent. Pancreas: Normal. No ductal dilation. Spleen: Normal. No splenomegaly. Adrenals: Normal. No mass. Kidneys and ureters: Normal. No hydronephrosis. Stomach and bowel: Normal. No obstruction. No mucosal thickening. Appendix: There has been a prior appendectomy. PELVIS: Bladder: Unremarkable as visualized. Reproductive: There is an approximately 3 cm left ovarian cyst. ABDOMEN and PELVIS: Intraperitoneal space: Normal. No free air. No significant fluid collection. Bones/joints: No acute fracture. No dislocation. Soft tissues: Unremarkable. Vasculature: Normal. No abdominal aortic aneurysm. Lymph nodes: Normal. No enlarged lymph nodes. IMPRESSION: 1. No acute findings in the abdomen or pelvis. 2. Approximately 3 cm left ovarian cyst. Pelvic US could be performed if there is clinical concern for pelvic pathology/etiology for pain. Electronically signed by: Marysol Ba On 08/19/2018 21:30:09 PM
--- NOTE | 2018-08-20 06:41 | ED PDOC ---
Post-Departure Follow-Up dr anyi garcia faxed formal report of ct abd/p for fu Kika Villela MD Aug 20, 2018 06:41
== END 2018-08-19 22:12 | disposition home or self-care (01) ==
LOC: M ED 17:04
DX: N39.0 Urinary tract infection, site not specified (principal); N83.202 Unspecified ovarian cyst, left side; E11.9 Type 2 diabetes mellitus without complications; I11.0 Hypertensive heart disease with heart failure; I50.9 Heart failure, unspecified; J45.909 Unspecified asthma, uncomplicated; E78.5 Hyperlipidemia, unspecified; G62.9 Polyneuropathy, unspecified; G47.33 Obstructive sleep apnea (adult) (pediatric); E03.9 Hypothyroidism, unspecified; G43.909 Migraine, unspecified, not intractable, without status migrainosus; K21.9 Gastro-esophageal reflux disease without esophagitis; Z79.899 Other long term (current) drug therapy; Z79.890 Hormone replacement therapy; Z88.8 Allergy status to other drugs, medicaments and biological substances

== ENCOUNTER 2018-08-26 12:10 | Emergency (ER) | payer OTHER ==
[~2018-08-26] VITALS: Ht 162.6 cm; Wt 93.3 kg
[2018-08-26] MEDS ORDERED: ONDANSETRON 4MG/2ML VIAL (J2405) IV ONE (13:00)
[2018-08-26] MEDS ORDERED: NS 1,000 ML IV ONE (13:00)
[2018-08-26] MEDS ORDERED: KETOROLAC 30 MG/ML VIAL (J1885) IV ONE (13:00)
[2018-08-26 13:31] LABS: HEMATOCRIT 33.7 % (36.0-47.0); HEMOGLOBIN 10.8 g/dl (12.0-15.5); MEAN CORPUSCULAR HEMOGLOBIN 29.8 pg (27.0-33.0); MEAN CORPUSCULAR VOLUME 92.8 fl (80.0-96.0); PLATELET COUNT, AUTOMATED 292 10^3/uL (150-450); RED BLOOD COUNT 3.63 10^6/uL (4.00-5.40)
[2018-08-26 13:46] LABS: INR 0.88
[2018-08-26 13:50] LABS: HCG, SERUM QUALITATIVE NEGATIVE (NEGATIVE)
[2018-08-26 13:53] LABS: ALBUMIN 3.3 GM/DL (3.2-5.2); ALT/SGPT 82 U/L (12-78); BILIRUBIN,DIRECT < 0.1 MG/DL (0.0-0.2); BILIRUBIN,TOTAL 0.3 MG/DL (0.2-1.0); BLOOD UREA NITROGEN 18 MG/DL (7-18); CARBON DIOXIDE LEVEL 26 MEQ/L (21-32); CHLORIDE LEVEL 103 MEQ/L (98-107); CREATININE FOR GFR 0.81 MG/DL (0.55-1.30); GLOMERULAR FILTRATION RATE > 60.0 (>58); GLUCOSE, FASTING 192 MG/DL (70-100); LIPASE 773 U/L (73-393); POTASSIUM SERUM 4.9 MEQ/L (3.5-5.1); SODIUM LEVEL 136 MEQ/L (136-145); TOTAL PROTEIN 7.5 GM/DL (6.4-8.2)
[2018-08-26] MEDS ORDERED: ISOVUE-370 76% 100ML VIAL (Q9967) As Ordered ONE (14:04)
[2018-08-26 14:24] LABS: ATYPICAL LYMPH 1 % (0-5); EOSINOPHILS 4 % (0-5); LYMPHOCYTES 49 % (16-52); MONOCYTES 11 % (0-8); NEUTROPHILS 35 % (35-75); PLATELET ESTIMATE NORMAL (NORMAL)
[2018-08-26] MEDS ORDERED: MORPHINE 4 MG/ML 1ML VIAL/SYRINGE (J2270) IV ONE (15:00)
--- NOTE | 2018-08-26 15:00 | REP ---
CT abdomen and pelvis with IV but without oral contrast: History: Abdomen pain. Comparison CT study: August 19, 2018, August 15, 2018, July 25, 2018, March 14, [address] contrast dose: 100 ml of intravenous Isovue 370. CT findings: The lung bases are clear. There is mild diffuse fatty infiltration of the liver. No focal liver lesion is seen. The spleen is normal in size and homogeneous in texture. Gallbladder surgically absent. Common bile duct measures 12 mm in AP dimension. This it is unchanged from the August 15, 2018 prior study and the March 14, 2018 prior exam. No adrenal lesion is seen. The kidneys enhance symmetrically are morphologically intact. No abnormalities noted in the pancreas. No retroperitoneal mass or adenopathy is observed. No uterine or adnexal pathology is seen. Urinary bladder is unremarkable. No abdominal wall defect is seen. There are surgical clips medial to the cecum consistent with previous appendectomy. Impression: Status post cholecystectomy and appendectomy. Minimal fatty infiltration of the liver. No acute abdominal or pelvic abnormality. Electronically Signed by mEil Booker MD 08/26/2018 08:32 P
[2018-08-26] MEDS ORDERED: NORC1TAB7 PO (15:09)
[2018-08-26] MEDS ORDERED: ZOFR4TAB16 PO (15:09)
[2018-08-26 16:21] VITALS: BP 163/95
[2018-08-27] MEDS ORDERED: ZOFR4TAB16 PO (11:06)
[2018-08-27] MEDS ORDERED: AMLO5TAB6 PO (11:06)
[2018-08-27] MEDS ORDERED: HYDR-4571 PO (11:06)
== END 2018-08-26 16:25 | disposition home or self-care (01) ==
LOC: M ED 12:10
DX: B18.9 Chronic viral hepatitis, unspecified (principal); K86.9 Disease of pancreas, unspecified; I51.9 Heart disease, unspecified; E11.9 Type 2 diabetes mellitus without complications; I10 Essential (primary) hypertension; E78.5 Hyperlipidemia, unspecified; Z87.891 Personal history of nicotine dependence; Z79.4 Long term (current) use of insulin; Z79.899 Other long term (current) drug therapy; Z88.8 Allergy status to other drugs, medicaments and biological substances
CPT/HCPCS: 74177; 80048; 80076; 81001; 83690; 84703; 85025; 85610; 96374; 96375; 99284; J1885; J2270; J2405; Q9967

== ENCOUNTER 2018-08-27 08:55 | Inpatient (IN) | payer OTHER ==
[~2018-08-27] VITALS: Ht 162.6 cm; Wt 94.4 kg
[~2018-08-27 08:55] MED LIST changes: +NORC1TAB7 PO; +ZOFR4TAB16 PO
[2018-08-27] MEDS ORDERED: ONDANSETRON 4MG/2ML VIAL (J2405) IV ONE (09:30)
[2018-08-27] MEDS ORDERED: NS 1,000 ML IV ONE (09:30)
[2018-08-27] MEDS ORDERED: KETOROLAC 30 MG/ML VIAL (J1885) IV ONE (09:30)
[2018-08-27 09:53] LABS: BASO # 0.1 10^3/uL (0.0-0.2); BASO % 0.9 % (0.0-1.0); EOS # 0.4 10^3/uL (0.0-0.50); EOS % 3.9 % (0.0-3.0); HEMOGLOBIN 11.4 g/dl (12.0-15.5); LYMPH # 3.5 10^3/uL (1.5-4.5); LYMPH % 37.9 % (24.0-44.0); MEAN CORPUSCULAR HEMOGLOBIN 29.5 pg (27.0-33.0); MEAN CORPUSCULAR HGB CONC 31.7 g/dl (32.0-36.5); MONO # 0.8 10^3/uL (0.0-0.8); MONO % 8.3 % (0.0-5.0); NEUTROPHILS # 4.5 10^3/uL (1.8-7.7); NEUTROPHILS % 48.3 % (36.0-66.0); PLATELET COUNT, AUTOMATED 312 10^3/uL (150-450); RED BLOOD COUNT 3.87 10^6/uL (4.00-5.40); WHITE BLOOD COUNT 9.2 10^3/uL (4.0-10.0)
[2018-08-27 10:25] LABS: ALBUMIN 3.3 GM/DL (3.2-5.2); ALT/SGPT 130 U/L (12-78); AMYLASE 57 U/L (25-115); BILIRUBIN,TOTAL < 0.1 MG/DL (0.2-1.0); BLOOD UREA NITROGEN 14 MG/DL (7-18); CALCIUM LEVEL 8.5 MG/DL (8.5-10.1); CARBON DIOXIDE LEVEL 26 MEQ/L (21-32); CHLORIDE LEVEL 106 MEQ/L (98-107); CREATININE FOR GFR 0.77 MG/DL (0.55-1.30); GLOMERULAR FILTRATION RATE > 60.0 (>58); GLUCOSE, FASTING 253 MG/DL (70-100); LIPASE 452 U/L (73-393); POTASSIUM SERUM 4.5 MEQ/L (3.5-5.1); SODIUM LEVEL 139 MEQ/L (136-145); TOTAL PROTEIN 7.4 GM/DL (6.4-8.2)
[2018-08-27] MEDS ORDERED: HYDROMORPHONE HCL 0.5 MG/ 0.5 ML SYRINGE (J1170 PER 1) IV ONE (10:45)
--- NOTE | 2018-08-27 10:50 | REP ---
RIGHT UPPER QUADRANT SONOGRAPHY: HISTORY: Abdominal pain. 5 years post cholecystectomy. FINDINGS: Scanning through the right upper quadrant of the abdomen demonstrates no focal liver lesion. The liver parenchyma shows some diffuse mild increased echogenicity consistent with fatty infiltration of the liver. The common bile duct is mildly dilated at 12 mm post cholecystectomy. No choledocholith is seen. Limited views of the pancreas show no abnormality. There is no evidence of ascites. The right kidney shows normal renal cortical echogenicity. Its dimensions are 12.7 x 5.6 x 4.7 cm. There is a 0.3 cm echogenic focus in the cortex of the upper pole right kidney which may be a reflection from a tiny cyst. IMPRESSION: Gallbladder surgically absent. The common bile duct is mildly dilated post cholecystectomy, measured at 12 mm. Mild fatty infiltration of the liver suspected. Otherwise negative. Electronically Signed by Emil Booker MD 08/27/2018 03:02 P
[2018-08-27] MEDS ORDERED: HYDR-4571 PO (11:06)
[2018-08-27] MEDS ORDERED: AMLO5TAB6 PO (11:06)
[2018-08-27] MEDS ORDERED: ZOFR4TAB16 PO (11:06)
[2018-08-27] MEDS: LR 1,000 ML IV SCH ×4 (12:01→23:32)
[2018-08-27 12:30] VITALS: BP 173/103
[2018-08-27] MEDS ORDERED: DEXTROSE 50% 50 ML SYRINGE IV PRN (12:30)
[2018-08-27] MEDS ORDERED: ALBUTEROL 90 MCG/ACT 8GM HFA INHALER INH PRN (12:30)
[2018-08-27] MEDS ORDERED: GLUCOSE 4 GM CHEW TABLET PO PRN (12:30)
[2018-08-27] MEDS ORDERED: POLYVINYL ALCOHOL OPHTH SOLN 15 ML(LIQUITEARS) OU PRN (12:30)
[2018-08-27] MEDS ORDERED: GLUCAGON FOR INJ 1 MG VIAL (J1610) SC PRN (12:30)
[2018-08-27] MEDS: HumaLOG INSULIN (NovoLOG) PER UNIT SC SCH ×2 (12:48→17:11)
--- NOTE | 2018-08-27 12:48 | HPEPDOC ---
[facility] Medical History & Physical Date of Admission Aug 27, 2018 Date of Service: Aug 27, 2018 History and Physical PCP: Monica SHOT PEENING OPERATOR: Kaz CHIEF COMPLAINT: Abdominal pain HISTORY OF PRESENT ILLNESS: Patient is a 47-year-old female with a history of alpha-1 antitrypsin deficiency who has had 3 days of right upper quadrant abdominal pain associated with nausea worsened by eating unchanged by position. Today it has been associated with an episode of vomiting without blood She states that the pain comes and goes but of late as it has been quite persistent. She did present to the emergency room yesterday and have a CT scan completed she was told she had pancreatitis and was discharged home. Unfortunately the patient's pain persisted and was quite significant and uncontrolled prompting her to present to the hospital today. She tells me that after receiving some IV pain medication she is feeling somewhat more comfortable but certainly not back to normal and not having any appetite right now. She denies fevers chills she admits to recent antibiotic use name of which she cannot recall but otherwise no other recent changes in medication. Otherwise patient denies weight loss, hair loss, headache, visual changes, chest pain, shortness of breath, cough,diarrhea, muscle aches, worsening arthritis, change in mood PAST MEDICAL HISTORY: 1. Alpha-1 antitrypsin deficiency followed by Dr. Mccurdy. 2. Gastroesophageal reflux disease. 3. Fibromyalgia 4. Anxiety, depression, PTSD 6. Dyslipidemia 7. Hypothyroidism 8. Migraine headaches 10. Insomnia 11. Insulin-dependent diabetes mellitus 12. Obstructive sleep apnea 13. COPD. HOME MEDICATIONS: Please see below. ALLERGIES: Please see below PAST SURGICAL HISTORY: 1. Cholecystectomy. 2. Appendectomy. 3. 3 4. Orthodontic surgery 5. Port placement and removal for 1 antitrypsin deficiency infusions. SOCIAL HISTORY: Lives with: Daughter, Employment: Disability, Tobacco use: Former smoker of 20 pack years. ETOH: Rare use last drink greater than 1 week ago, Illicit drug use: Denies, Tattoos done unprofessionally: Denies, CODE STATUS: Full code FAMILY HISTORY:Reviewed and noncontributory REVIEW OF SYSTEMS: 10 systems reviewed and negative other than HPI PHYSICAL EXAMINATION: VITAL SIGNS: Temperature 97.8, pulse 97, respiratory rate 16, blood pressure 176/110, pulse oximetry 97 % on room air. GENERAL: Pleasant obese middle-aged female lying in a stretcher awake alert oriented speaking in complete sentences no acute distress HEENT: Moist mucous membranes no elevation and CVP CARDIOVASCULAR: S1 S2 regular no additional heart sounds appreciated. She is not tachycardic RESPIRATORY: Clear to auscultation bilaterally. ABDOMINAL: Bowel sounds present abdomen soft and diffusely tender to palpation also in the right upper quadrant Fofana's sign is positive EXTREMITIES: No clubbing cyanosis or edema NEUROLOGICAL: Spontaneously moves all 4 extremities cranial 2 through 12 grossly intact no gross focal deficits appreciated PSYCHOLOGICAL: Appropriate LABORATORY DATA: See below. MICROBIOLOGY: Please see below. IMAGIN08/27/2018 abdominal ultrasound:Gallbladder surgically absent. The common bile duct is mildly dilated post cholecystectomy, measured at 12 mm. Mild fatty infiltration of the liver suspected. Otherwise negative. Abdominal CT scan 08/26/2018:Status post cholecystectomy and appendectomy. Minimal fatty infiltration of the liver. No acute abdominal or pelvic abnormality. ASSESSMENT & PLAN: This is a 47-year-old female with acute pancreatitis. PROBLEMS: 1. Acute pancreatitis: No evidence of necrosis on her CT, given her laboratory findings and right upper quadrant. There is certainly concern for choledocholithiasis. However she has had her gallbladder removed no evidence of stone on her ultrasound, she has chronic elevation of her liver function tests related to alpha-1 antitrypsin deficiency. As such I will order an MRCP and treat her for pancreatitis I will keep her nothing by mouth provider with this generous IV fluids and IV pain control and IV antiemetics. I will check a lipid panel in the morning to evaluate for her triglyceride level. 2.Hypertension: I will hold her amlodipine and lisinopril in the setting of acute pancreatitis and fluid resuscitation will restart as needed 3. Hypothyroidism: We will hold her levothyroxine in the hopes he can be resumed within the next 48 hours 4. Gastroesophageal reflux disease: Unable to tolerate by mouth at this time I will provide with IV Protonix, we will hold her Carafate 5. Chronic pain: We will hold her Neurontin as she is unable to tolerate by mouth at this time she'll be provided with IV pain medication, we are also holding her home hydrocodone, as well as tizanidine 6. Seasonal allergies: We are holding her home Zyrtec 7. Chronic constipation we are holding her Colace 8. Migraine headaches: We are holding her sumatriptan she is not experiencing any headache right now, we are also holding her Topamax 9. Insomnia: We are holding her home Ambien 10. Diabetes mellitus: We'll provide with every 6 hours sliding scale and fingersticks while she is nothing by mouth 11. PTSD/mood disorder: We are holding her venlafaxine will resume when she is able to tolerate by mouth. We will continue her Abilify post problem given the severity of her disease DVT PROPHYLAXIS:Lovenox DISPOSITION: [facility] floor Vital Signs Vital Signs Date Time Temp Pulse Resp B/P (MAP) Pulse Ox O2 Delivery O2 Flow Rate FiO2 08/27/18 12:15 97.8 72 17 138/78 (98) 98 Room Air Laboratory Data Labs 24H Laboratory Tests 2 08/27/18 09:36: Immature Granulocyte % (Auto) 0.7, White Blood Count 9.2, Red Blood Count 3.87L, Hemoglobin 11.4L, Hematocrit 36.0, Mean Corpuscular Volume 93.0, Mean Corpu scular Hemoglobin 29.5, Mean Corpuscular Hemoglobin Concent 31.7L, Red Cell Distribution Width 13.6, Platelet Count 312, Neutrophils (%) (Auto) 48.3, Lymphocytes (%) (Auto) 37.9, Monocytes (%) (Auto) 8.3H, Eosinophils (%) (Auto) 3.9H, Basophils (%) (Auto) 0.9, Neutrophils # (Auto) 4.5, Lymphocytes # (Auto) 3.5, Monocytes # (Auto) 0.8, Eosinophils # (Auto) 0.4, Basophils # (Auto) 0.1, Nucleated Red Blood Cells % (auto) 0.0, Anion Gap 7L, Glomerular Filtration Rate > 60.0, Blood Urea Nitrogen 14, Creatinine 0.77, Sodium Level 139, Potassium Level 4.5, Chloride Level 106, Carbon Dioxide Level 26, Calcium Level 8.5, Aspartate Amino Transf (AST/SGOT) 85H, Alanine Aminotransferase (ALT/SGPT) 130H, Alkaline Phosphatase 264H, Total Bilirubin < 0.1#L, Total Protein 7.4, Albumin 3.3, Albumin/Globulin Ratio 0.80L, Amylase Level 57, Lipase 452H CBC/BMP Laboratory Tests 08/27/18 09:36 Red Blood Count 3.87 L, Mean Corpuscular Volume 93.0, Mean Corpuscular Hemoglobin 29.5, Mean Corpuscular Hemoglobin Concent 31.7 L, Red Cell Distribution Width 13.6, Neutrophils (%) (Auto) 48.3, Lymphocytes (%) (Auto) 37.9, Monocytes (%) (Auto) 8.3 H, Eosinophils (%) (Auto) 3.9 H, Basophils (%) (Auto) 0.9, Neutrophils # (Auto) 4.5, Lymphocytes # (Auto) 3.5, Monocytes # (Auto) 0.8, Eosinophils # (Auto) 0.4, Basophils # (Auto) 0.1, Calcium Level 8.5, Aspartate Amino Transf (AST/SGOT) 85 H, Alanine Aminotransferase (ALT/SGPT) 130 H, Alkaline Phosphatase 264 H, Total Bilirubin < 0.1 #L, Total Protein 7.4, Albumin 3.3 Home Medications Scheduled Amlodipine Besylate (Amlodipine Besylate) 5 Mg Tablet, 5 MG PO DAILY Aripiprazole (Abilify) 5 Mg Tablet, 5 MG PO QHS Buspirone HCl (Buspirone HCl) 30 Mg Tablet, 30 MG PO BID Cetirizine HCl (Cetirizine HCl) 10 Mg Tab, 10 MG PO DAILY Cholecalciferol (Vitamin D3) (Vitamin D3) 1,000 Unit Tab, 1,000 UNIT PO DAILY Gabapentin (Gabapentin) 300 Mg Cap, 300 MG PO TID Insulin Glargine,Hum.rec.anlog (Basaglar Kwikpen U-100) 100 Unit/Ml Inj, 70 UNIT SC BID Insulin Human Regular (Humulin R) 1 Units/0.01 Ml Soln, 1 DOSE SC ACHS PER SLIDING SCALE Lactobacillus Combo No.10 (Probiotic) 1 Each Capsule, 1 CAP PO QHS Levothyroxine Sodium (Synthroid) 25 Mcg Tab, 25 MCG PO DAILY Lisinopril (Lisinopril) 10 Mg Tab, 10 MG PO DAILY Pantoprazole Sodium (Protonix) 40 Mg Tab, 40 MG PO BID Prazosin Hcl (Prazosin HCl) 1 Mg Capsule, 3 MG PO QHS Sucralfate (Carafate) 1 Gm Tab, 1 GM PO ACHS Topiramate (Topiramate) 50 Mg Tab, 100 MG PO QHS Triamcinolone Acetonide (Triamcinolone Acetonide) 0.1 % Lot, 1 DOSE EXT BID USES ON ELBOWS AND FINGERS Venlafaxine HCl (Venlafaxine HCl ER) 150 Mg Tab.er.24, 150 MG PO DAILY Zolpidem Tartrate (Ambien) 5 Mg Tablet, 5 MG PO QHS Scheduled PRN Albuterol Sulfate (Ventolin Hfa) 108 Mcg/Act Aer, 2 PUFFS INH Q4H PRN for SHORTNESS OF BREATH Docusate Sodium (Colace) 100 Mg Cap, 100 MG PO DAILY PRN for CONSTIPATION Hydrocodone/Acetaminophen (Hydrocodone-Acetamin 5-325 mg) 1 Each Tablet, 1 TAB PO TID PRN for PAIN Ondansetron HCl (Zofran) 4 Mg Tablet, 4 MG PO Q8H PRN for NAUSEA OR VOMITING Polyvinyl Alcohol (Artificial Tears) 1.4 % Debora, 1 DROP OU QID PRN for DRY EYES Sumatriptan Succinate (Sumatriptan Succinate) 50 Mg Tab, 50 MG PO BID PRN for MIGRAINE Tizanidine HCl (Tizanidine HCl) 4 Mg Tab, 4 MG PO TID PRN for MUSCLE SPASMS Allergies Coded Allergies: meclizine (Verified Allergy, Severe, shock, 07/15/18) prednisone (Verified Allergy, Intermediate, hives, 07/15/18) metformin (Verified Adverse Reaction, Intermediate, kidney problems, 07/15/18) A-FIB/CHADSVASC A-FIB History Current/History of A-Fib/PAF?: HERBIE Esteves MD Aug 27, 2018 12:48
[2018-08-27] MEDS: busPIRone 10 MG TAB PO SCH ×2 (13:50→21:06)
[2018-08-27] MEDS: PANTOPRAZOLE 40MG INJ (PROTONIX) (C9113) IV SCH (13:50)
[2018-08-27] MEDS: ENOXAPARIN 40 MG/0.4 ML SYRINGE (J1650) SC SCH (13:50)
[2018-08-27] MEDS: ONDANSETRON 4MG/2ML VIAL (J2405) IV PRN ×2 (13:51→22:32)
[2018-08-27] MEDS: MORPHINE 4 MG/ML 1ML VIAL/SYRINGE (J2270) IV PRN ×3 (13:51→22:33)
[2018-08-27 14:00] VITALS: BP 150/98
--- NOTE | 2018-08-27 21:34 | REPVR ---
EXAM: MR Abdomen Without Contrast EXAM DATE/TIME: 08/27/2018 7:53 PM CLINICAL HISTORY: 47 years old, female; Abdominal pain; Acute; Patient HX: Prior abd US and CT abd on pac RT sided abd pain; Additional info: Abodminal pain, pancreatitis, dilated cbd, elevated lfts TECHNIQUE: Imaging protocol: MR of the abdomen without contrast. There are very T2-weighted images of the limited abdomen. This is primarily an MRCP. 3D rendering: MIP reconstructed images were created and reviewed. COMPARISON: CT ABD PELVIS W/O CONTRAST 08/19/2018 8:24 PM FINDINGS: Liver: The liver is incompletely included. It is normal as visualized. Gallbladder and bile ducts: Status post cholecystectomy. The common bile duct is dilated measuring up to 11 mm in diameter. There is no evidence of filling defect to indicate choledochal calculus. There is no stricture. Intrahepatic bile ducts are mildly dilated. Pancreas: The pancreas is normal. The pancreatic duct is normal. Spleen: The spleen is incompletely visualized. It is normal as visualized. Adrenals: The adrenals are incompletely visualized. They are normal as visualized. Kidneys and ureters: Kidneys are incompletely visualized. They're normal as visualized. No hydronephrosis. Stomach and bowel: Unremarkable. Intraperitoneal space: No fluid collection. Arteries: No abdominal aortic aneurysm. Soft tissues: Unremarkable IMPRESSION: Status post cholecystectomy. There are dilated bile ducts with the common bile duct measuring up to 11 mm in diameter. No evidence of choledochal calculus or stricture. No change from prior CT. Electronically signed by: Jaspreet Thomas On 08/27/2018 21:34:33 PM
[2018-08-27 22:00] VITALS: BP 163/96
[2018-08-28] MEDS: PANTOPRAZOLE 40MG INJ (PROTONIX) (C9113) IV SCH ×2 (00:45→12:17)
[2018-08-28] MEDS: HumaLOG INSULIN (NovoLOG) PER UNIT SC SCH ×4 (00:45→17:16)
[2018-08-28] MEDS: MORPHINE 4 MG/ML 1ML VIAL/SYRINGE (J2270) IV PRN ×5 (02:28→19:44)
[2018-08-28 06:00] VITALS: BP 145/72
[2018-08-28 06:03] LABS: HEMATOCRIT 34.8 % (36.0-47.0); HEMOGLOBIN 10.8 g/dl (12.0-15.5); MEAN CORPUSCULAR HEMOGLOBIN 28.9 pg (27.0-33.0); PLATELET COUNT, AUTOMATED 282 10^3/uL (150-450); RED BLOOD COUNT 3.74 10^6/uL (4.00-5.40); WHITE BLOOD COUNT 9.3 10^3/uL (4.0-10.0)
[2018-08-28 06:47] LABS: ALT/SGPT 122 U/L (12-78); BILIRUBIN,TOTAL 0.2 MG/DL (0.2-1.0); BLOOD UREA NITROGEN 7 MG/DL (7-18); CALCIUM LEVEL 8.4 MG/DL (8.5-10.1); CARBON DIOXIDE LEVEL 28 MEQ/L (21-32); CHLORIDE LEVEL 105 MEQ/L (98-107); CHOLESTEROL LEVEL 194 MG/DL (<200); CHOLESTEROL RISK RATIO 4.974 (<5); CREATININE FOR GFR 0.63 MG/DL (0.55-1.30); GLOMERULAR FILTRATION RATE > 60.0 (>58); GLUCOSE, FASTING 166 MG/DL (70-100); HDL CHOLESTEROL 39 MG/DL (>40); LDL CHOLESTEROL 94 MG/DL (<100); NON-HDL-C 155 MG/DL; POTASSIUM SERUM 3.9 MEQ/L (3.5-5.1); SODIUM LEVEL 138 MEQ/L (136-145); TOTAL PROTEIN 7.4 GM/DL (6.4-8.2); TRIGLYCERIDES LEVEL 306 MG/DL (<150)
[2018-08-28] MEDS: LR 1,000 ML IV SCH ×3 (08:36→18:12)
[2018-08-28] MEDS: ENOXAPARIN 40 MG/0.4 ML SYRINGE (J1650) SC SCH (08:36)
[2018-08-28] MEDS: busPIRone 10 MG TAB PO SCH ×2 (08:36→21:27)
[2018-08-28] MEDS ORDERED: amLODIPine 5 MG TAB PO SCH (09:00)
[2018-08-28] MEDS: ONDANSETRON 4MG/2ML VIAL (J2405) IV PRN (09:11)
[2018-08-28] MEDS ORDERED: tiZANidine 4 MG TAB PO PRN (09:45)
[2018-08-28] MEDS ORDERED: SUMAtriptan SUCCINATE 25 MG TAB PO PRN (09:45)
[2018-08-28] MEDS ORDERED: SUMAtriptan SUCCINATE 6 MG/0.5 ML VIAL SC ONE (10:00)
[2018-08-28] MEDS: GABAPENTIN 300 MG CAP PO SCH ×3 (10:28→21:27)
[2018-08-28] MEDS: VENLAFAXINE **XR** 75MG CAPSULE PO SCH (10:28)
[2018-08-28] MEDS: CETIRIZINE (ZyrTEC) 10 MG TAB PO SCH (10:28)
[2018-08-28] MEDS: LISINOPRIL 10 MG TAB PO SCH (10:29)
[2018-08-28] MEDS: LEVOTHYROXINE 25MCG TABLET (0.025MG) PO SCH (10:31)
[2018-08-28 12:17] LABS: LIPASE 183 U/L (73-393)
--- NOTE | 2018-08-28 13:21 | IPNPDOC ---
Date Seen The patient was seen on 08/28/18. Progress Note SUBJECTIVE: Patient is a 47-year-old female with abdominal pain, nausea, and vomiting. Patient is evaluated at bedside this morning. She is laying in bed in the supine position with her arm/hand covering her face. She states that she has a migraine. When questioned about her abdominal pain she says that it is getting better. She no longer feels nauseated or is vomiting. She denies EtOH use, has recently transitioned to [employer], and has not smoked in years. She had her gallbladder removed several years ago. She questions why her home medications have not been restarted since she has been in the hospital. Denies fevers, night sweats, chills, chest pain, shortness of breath. OBJECTIVE PHYSICAL EXAMINATION: VITAL SIGNS: Please see below. GENERAL: Well nourished, well developed female, alert and conversant, answers questions appropriately, appears uncomfortable. HEENT: Atraumatic, normocephalic, PERRL, EOMI, oral mucosa appears pink and moist, nasal septum appears midline, nares are patent. CARDIOVASCULAR: Regular rate and rhythm, normal S1 and S2, no murmur, rub, click. RESPIRATORY: Clear to auscultation bilaterally, adequate inspiratory and e xpiratory airway excursion, symmetric airway entry, no focal consolidations, no wheeze, rhonchi, crackles. ABDOMINAL: Soft, round, abdominal striae, no guarding, no rebound, pain with palpation diffusely, bowel sounds are diminished throughout. EXTREMITIES: No clubbing, no cyanosis, no peripheral edema. NEUROLOGICAL: CN II-XII grossly intact. PSYCHOLOGICAL: Appears uncomfortable. LABORATORY DATA, IMAGING STUDIES, MICROBIOLOGY: Please see below. 1. Abdominal US - Gallbladder surgically absent. The common bile duct is mildly dilated post cholecystectomy, measured at 12 mm. Mild fatty infiltration of the liver suspected. Otherwise negative. 2. MRI abdomen without contrast - Status post cholecystectomy. There are dilated bile ducts with the common bile duct measuring up to 11 mm in diameter. No evidence of choledochal calculus or stricture. No change from prior CT. DVT prophylaxis ordered?: Lovenox 40mg SQ daily. ASSESSMENT AND PLAN: This is a 47-year-old female with abdominal pain, nausea, vomiting found to have pancreatitis. PROBLEMS: 1. Abdominal pain, nausea, vomiting 2/2 pancreatitis Lipase improving; 773 --> 452 --> 183 IVF with LR @ 100 mLs/hr NPO Will advance diet as tolerated based on patient's symptoms C/W Zofran, Morphine Elevation in triglycerides 2. Chronic hepatitis 2/2 AATD Monitor labs Chronic changes noted on imaging 3. HTN C/W Amlodipine, Lisinopril 4. DM with diabetic neuropathy C/W Gabapentin C/W SSI Q6H, FSBS Q6H, hypoglycemic protocol, NPO Patient takes Basaglar 70 units SQ BID with SSI at home; could consider restarting once patient is tolerating diet 5. Migraine C/W Sumatriptan, Topiramate 6. Depression C/W Venlafaxine, Buspirone 7. Insomnia C/W Zolpidem 8. Muscle spasms C/W Tizanidine DISPOSITION: Pending clinical improvement. Anticipate discharge in 24-48 hours. I saw and evaluated the patient. I agree with the findings and plan of care as documented in the resident's note VS, I&O, 24H, Saeed Vital Signs/I&O Vital Signs Date Time Temp Pulse Resp B/P (MAP) Pulse Ox O2 Delivery O2 Flow Rate FiO2 08/28/18 10:29 155/84 08/28/18 10:29 72 08/28/18 09:05 18 08/28/18 06:00 97.5 91 08/27/18 12:15 Room Air I&O- Last 24 Hours up to 6 AM 08/28/18 06:00 Intake Total 2500 ml Output Total 1800 ml Balance 700 ml Laboratory Data 24H LABS Laboratory Tests 2 08/27/18 12:35: Bedside Glucose (Misc Panel) 131H 08/27/18 16:41: Bedside Glucose (Misc Panel) 100 08/27/18 20:22: Bedside Glucose (Misc Panel) 103 08/28/18 00:08: Bedside Glucose (Misc Panel) 118H 08/28/18 05:47: Nucleated Red Blood Cells % (auto) 0.0, Anion Gap 5L, Glomerular Filtration Rate > 60.0, Blood Urea Nitrogen 7, Creatinine 0.63, Sodium Level 138, Potassium Level 3.9, Chloride Level 105, Carbon Dioxide Level 28, Calcium Level 8.4L, Aspartate Amino Transf (AST/SGOT) 78H, Alanine Aminotransferase (ALT/SGPT) 122H, Alkaline Phosphatase 224H, Total Bilirubin 0.2#, Triglycerides Level 306H, LDL Cholesterol 94, Total Protein 7.4, Albumin 3.0L, Albumin/Globulin Ratio 0.68L, Total Cholesterol 194, Non-HDL Cholesterol (LDL + VLDL) 155, Total HDL Cholesterol 39L, Cholesterol/HDL Ratio 4.974, Lipase 183 08/28/18 06:08: Bedside Glucose (Misc Panel) 168H 08/28/18 11:37: Bedside Glucose (Misc Panel) 180H CBC/BMP Laboratory Tests 08/28/18 05:47 Red Blood Count 3.74 L, Mean Corpuscular Volume 93.0, Mean Corpuscular Hemoglobin 28.9, Mean Corpuscular Hemoglobin Concent 31.0 L, Red Cell Distributi on Width 13.5, Calcium Level 8.4 L, Aspartate Amino Transf (AST/SGOT) 78 H, Alanine Aminotransferase (ALT/SGPT) 122 H, Alkaline Phosphatase 224 H, Total Bilirubin 0.2 #, Triglycerides Level 306 H, LDL Cholesterol 94, Total Protein 7.4, Albumin 3.0 L IMELDA VELAZQUEZ DO Aug 28, 2018 13:21 HERBIE STOCKTON MD Aug 29, 2018 16:48
[2018-08-28 14:00] VITALS: BP 142/93
[2018-08-28] MEDS ORDERED: amLODIPine 5 MG TAB PO ONE (16:15)
[2018-08-28 19:00] LABS: APPEARANCE, URINE CLEAR (CLEAR); BACTERIA, URINE AUTO NEGATIVE (NEGATIVE); BILIRUBIN, URINE AUTO NEGATIVE (NEGATIVE); BLOOD, URINE BLOOD 3+ (NEGATIVE); COLOR, URINE YELLOW (YELLOW); GLUCOSE, URINE (UA) AUTO NEGATIVE (NEGATIVE); KETONE, URINE AUTO TRACE mg/dL (NEGATIVE); LEUKOCYTE ESTERASE, URINE AUTO NEGATIVE (NEGATIVE); NITRITE, URINE AUTO NEGATIVE (NEGATIVE); PROTEIN, URINE AUTO NEGATIVE (NEGATIVE); RBC, URINE AUTO TNTC /HPF (0-3); SQUAMOUS EPITHELIAL CELL UR AU 2 /HPF (0-6); UROBILINOGEN, URINE AUTO 0.2 mg/dL (0.0-2.0); WBC, URINE AUTO 1 /HPF (0-3)
[2018-08-28] MEDS ORDERED: TOPIRAMATE (TopAMAX) 100 MG TAB PO SCH (21:00)
[2018-08-28] MEDS ORDERED: zolPIDEM TARTRATE 5 MG TAB PO SCH (21:00)
[2018-08-28 22:00] VITALS: BP 136/82
[2018-08-29] MEDS: HumaLOG INSULIN (NovoLOG) PER UNIT SC SCH ×3 (00:25→13:09)
[2018-08-29] MEDS: PANTOPRAZOLE 40MG INJ (PROTONIX) (C9113) IV SCH ×2 (00:25→13:09)
[2018-08-29] MEDS: MORPHINE 4 MG/ML 1ML VIAL/SYRINGE (J2270) IV PRN ×2 (00:32→06:08)
[2018-08-29 06:00] VITALS: BP 142/80
[2018-08-29] MEDS: LEVOTHYROXINE 25MCG TABLET (0.025MG) PO SCH (06:18)
[2018-08-29 06:30] LABS: HEMATOCRIT 36.8 % (36.0-47.0); HEMOGLOBIN 11.3 g/dl (12.0-15.5); MEAN CORPUSCULAR HEMOGLOBIN 28.9 pg (27.0-33.0); MEAN CORPUSCULAR HGB CONC 30.7 g/dl (32.0-36.5); MEAN CORPUSCULAR VOLUME 94.1 fl (80.0-96.0); PLATELET COUNT, AUTOMATED 302 10^3/uL (150-450); RED BLOOD COUNT 3.91 10^6/uL (4.00-5.40); WHITE BLOOD COUNT 8.3 10^3/uL (4.0-10.0)
[2018-08-29 07:00] LABS: ALBUMIN 3.2 GM/DL (3.2-5.2); ALT/SGPT 113 U/L (12-78); BILIRUBIN,TOTAL 0.3 MG/DL (0.2-1.0); BLOOD UREA NITROGEN 8 MG/DL (7-18); CALCIUM LEVEL 8.8 MG/DL (8.5-10.1); CARBON DIOXIDE LEVEL 27 MEQ/L (21-32); CHLORIDE LEVEL 106 MEQ/L (98-107); CREATININE FOR GFR 0.69 MG/DL (0.55-1.30); GLOMERULAR FILTRATION RATE > 60.0 (>58); GLUCOSE, FASTING 183 MG/DL (70-100); POTASSIUM SERUM 3.5 MEQ/L (3.5-5.1); SODIUM LEVEL 138 MEQ/L (136-145); TOTAL PROTEIN 7.6 GM/DL (6.4-8.2)
--- NOTE | 2018-08-29 08:26 | REPVR ---
EXAM: CT Abdomen and Pelvis Without Contrast EXAM DATE/TIME: 08/29/2018 7:35 AM CLINICAL HISTORY: 47 years old, female; Signs and symptoms; Other: Hematuria; Additional info: ? Kidney stone, hematuria on ua, lower pelvic pain TECHNIQUE: Imaging protocol: Axial computed tomography images of the abdomen and pelvis without contrast. Coronal and sagittal reformatted images were created and reviewed. Radiation optimization: All CT scans at this facility use at least one of these dose optimization techniques: automated exposure control; mA and/or kV adjustment per patient size (includes targeted exams where dose is matched to clinical indication); or iterative reconstruction. COMPARISON: CT ABD PELVIS W/O CONTRAST 08/19/2018 8:24 PM FINDINGS: Lungs: The visualized lungs are grossly clear. ABDOMEN: Liver: There are no focal liver lesions present. Gallbladder and bile ducts: There has been a cholecystectomy. There is mild biliary ductal dilation. The common bile duct measures 10 mm in the pancreatic head, without significant change. Pancreas: The pancreas is unremarkable with no ductal dilation. Spleen: The spleen is normal. Adrenals: The adrenal glands are normal. Kidneys and ureters: The kidneys are unremarkable. There are no ureteral stones or hydronephrosis. Stomach and bowel: The small bowel appears unremarkable. There is no dilation or thickening of the colon. Appendix: There has been an appendectomy. PELVIS: Bladder: The bladder is mostly collapsed. No bladder stones are identified. Reproductive: The uterus is unremarkable. ABDOMEN and PELVIS: Intraperitoneal space: There is no evidence of free intraperitoneal or pelvic fluid. There is no free intraperitoneal air. Bones/joints: No suspicious osseous lesions. No acute fractures or dislocations. There is a lucency in the visualized proximal left femur, consistent with a previous intramedullary dino placement. Soft tissues: There is a small periumbilical hernia containing fat. Vasculature: The aorta demonstrates mild atherosclerotic calcification. Lymph nodes: No lymphadenopathy is seen. IMPRESSION: 1. No nephrolithiasis, ureterolithiasis, or hydronephrosis identified. 2. Grossly unremarkable appearance of the collapsed bladder. Electronically signed by: Oralia Garcia On 08/29/2018 08:26:16 AM
[2018-08-29 08:47] VITALS: BP 142/80
[2018-08-29] MEDS: ENOXAPARIN 40 MG/0.4 ML SYRINGE (J1650) SC SCH (08:47)
[2018-08-29] MEDS: CETIRIZINE (ZyrTEC) 10 MG TAB PO SCH (08:47)
[2018-08-29] MEDS: busPIRone 10 MG TAB PO SCH (08:47)
[2018-08-29] MEDS: VENLAFAXINE **XR** 75MG CAPSULE PO SCH (08:47)
[2018-08-29] MEDS: LISINOPRIL 10 MG TAB PO SCH (08:47)
[2018-08-29] MEDS: GABAPENTIN 300 MG CAP PO SCH (08:48)
[2018-08-29] MEDS ORDERED: amLODIPine 10 MG TAB PO SCH (09:00)
[2018-08-29] MEDS ORDERED: PERCOCET 5MG/325MG TAB PO PRN ×2 (09:00)
[2018-08-29] MEDS ORDERED: AMLO10TA5 PO (11:06)
[2018-08-29 11:28] LABS: HEMOGLOBIN A1c 10.1 %
[2018-08-29] MEDS: LR 1,000 ML IV SCH (13:45)
[2018-08-29 14:00] VITALS: BP 130/73
--- NOTE | 2018-08-29 14:12 | DS.PDOC ---
Discharge Summary General Date of Admission Aug 27, 2018 at 11:45 Date of Discharge 08/29/2018 Primary Care Physician: ADALBERTO ANGELES DO Attending Physician: HERBIE STOCKTON MD Discharge Summary PROCEDURES PERFORMED DURING STAY: None. ADMITTING DIAGNOSES: 1. Acute pancreatitis. 2. HTN. 3. Hypothyroidism. 4. GERD. 5. Chronic pain. 6. Seasonal allergies. 7. Chronic constipation. 8. Migraines. 9. Insomnia. 10. DM. 11. PTSD/mood disorder. DISCHARGE DIAGNOSES: 1. Abdominal pain, nausea, vomiting secondary to acute pancreatitis. 2. Chronic hepatitis secondary to AATD. 3. HTN. 4. DM with diabetic neuropathy. 5. Migraine. 6. Depression. 7. Insomnia. 8. Muscle spasms. COMPLICATIONS/CHIEF COMPLAINT: Pancreatitis. HISTORY OF PRESENT ILLNESS: Ms. Vail is a 47-year-old female with a history of alpha-1 antitrypsin deficiency who has had 3 days of right upper quadrant abdominal pain associated with nausea worsened by eating unchanged by position. Today it has been associated with an episode of vomiting without blood She states that the pain comes and goes but of late as it has been quite persistent. She did present to the emergency room yesterday and have a CT scan completed she was told she had pancreatitis and was discharged home. Unfortunately the patie nt's pain persisted and was quite significant and uncontrolled prompting her to present to the hospital today. She tells me that after receiving some IV pain medication she is feeling somewhat more comfortable but certainly not back to normal and not having any appetite right now. She denies fevers chills she admits to recent antibiotic use name of which she cannot recall but otherwise no other recent changes in medication. Otherwise patient denies weight loss, hair loss, headache, visual changes, chest pain, shortness of breath, cough,diarrhea, muscle aches, worsening arthritis, change in mood HOSPITAL COURSE: Patient was admitted for further evaluation and treatment. MRCP ordered as resulted below. No evidence of gallstones, surgically absent gallbladder, denies EtOH use, and triglycerides noted to be high. Patient is a diabetic. Would consider further evaluation regarding diabetic regimen and compliance as this could be a reason for hypertriglyceridemia. Made patient NPO and provided IVF with pain control and antiemetics. Oral medications initially held due to NPO, but resumed during hospitalization. Blood pressure remained elevated so Amlodipine was increased to 10mg by mouth daily. Developed lower pelvic pain with radiating back pain into groin. Obtained urinalysis and CT abdomen and pelvis. Revealed blood on UA. Patient's menstrual cycle had started. Patient's diet advanced and appeared to tolerate well. Clinically improved throughout hospitalization and was stable at time of discharge. DISCHARGE MEDICATIONS: Please see below. ALLERGIES: Please see below. PHYSICAL EXAMINATION ON DISCHARGE: VITAL SIGNS: Please see below. GENERAL: Well nourished, well developed female, alert and conversant, answers questions appropriately, in no acute distress. HEENT: Atraumatic, normocephalic, PERRL, EOMI, oral mucosa appears pink and moist, nasal septum appears midline, nares are patent. CARDIOVASCULAR: Regular rate and rhythm, normal S1 and S2, no murmur, rub, click. RESPIRATORY: Clear to auscultation bilaterally, adequate inspiratory and expirat ory airway excursion, symmetric airway entry, no focal consolidations, no wheeze, rhonchi, crackles. ABDOMINAL: Soft, round, abdominal striae, no guarding, no rebound, significantly improved pain with palpation, bowel sounds are diminished throughout. EXTREMITIES: No clubbing, no cyanosis, no peripheral edema. NEUROLOGICAL: CN II-XII grossly intact. PSYCHOLOGICAL: Appears uncomfortable. LABORATORY DATA: Please see below. IMAGIN. Abdominal US - Gallbladder surgically absent. The common bile duct is mildly dilated post cholecystectomy, measured at 12 mm. Mild fatty infiltration of the liver suspected. Otherwise negative. 2. MRI abdomen without contrast - Status post cholecystectomy. There are dilated bile ducts with the common bile duct measuring up to 11 mm in diameter. No evidence of choledochal calculus or stricture. No change from prior CT. 3. CT abdomen and pelvis without contrast - No nephrolithiasis, ureterolithiasis, or hydronephrosis identified. Grossly unremarkable appearance of the collapsed bladder. PROGNOSIS: Stable. ACTIVITY: As tolerated. DIET: Consistent carbohydrate. DISCHARGE PLAN: As noted. DISPOSITION: Home. DISCHARGE INSTRUCTIONS: 1. Dr. Angeles in 7-10 days. 2. Take all medications as prescribed. 3. Take time resuming regular food intake. 4. Seek care at the nearest Emergency Department should your symptoms worsen or persist. ITEMS TO FOLLOWUP ON ON OUTPATIENT: 1. Diabetes management. 2. Could consider further evaluation of diabetic regimen and compliance as triglycerides are elevated. DISCHARGE CONDITION: Stable. I saw and evaluated the patient. I agree with the findings and plan of care as documented in the resident's note. I spent 45 minutes coordinating this patient's discharge. Vital Signs/I&Os Vital Signs Date Time Temp Pulse Resp B/P (MAP) Pulse Ox O2 Delivery O2 Flow Rate FiO2 08/29/18 11:46 18 08/29/18 08:47 142/80 08/29/18 06:00 97.4 77 97 08/27/18 12:15 Room Air I&O- Last 24 Hours up to 6 AM 08/29/18 06:00 Intake Total 3135 ml Output Total 4550 ml Balance -1415 ml Laboratory Data Labs 24H Laboratory Tests 2 08/28/18 16:37: Bedside Glucose (Misc Panel) 137H 08/28/18 18:10: Urine Appearance CLEAR, Urine Color YELLOW, Urine pH 7.0, Urine Specific [place] 1.010, Urine Protein NEGATIVE, Urine Glucose (UA) NEGATIVE, Urine Ketones TRACEH, Urine Urobilinogen 0.2, Urine Bilirubin NEGATIVE, Urine Leukocyte Esterase NEGATIVE, Urine Blood 3+H, Urine Nitrite NEGATIVE, Urine WBC (Auto) 1, Urine RBC (Auto) TNTCH, Urine Hyaline Casts (Auto) 0, Urine Bacteria (Auto) NEGATIVE, Urine Squamous Epithelial Cells 2, Urine Sperm (Auto) 08/28/18 23:41: Bedside Glucose (Misc Panel) 185H 08/29/18 05:57: Estimated Mean Plasma Glucose 243H, Hemoglobin A1c 10.1 08/29/18 06:01: Nucleated Red Blood Cells % (auto) 0.0, Anion Gap 5L, Glomerular Filtration Rate > 60.0, Blood Urea Nitrogen 8, Creatinine 0.69, Sodium Level 138, Potassium Level 3.5, Chloride Level 106, Carbon Dioxide Level 27, Calcium Level 8.8, Aspartate Amino Transf (AST/SGOT) 51H, Alanine Aminotransferase (ALT/SGPT) 113H, Alkaline Phosphatase 228H, Total Bilirubin 0.3, Total Protein 7.6, Albumin 3.2, Albumin/Globulin Ratio 0.73L 08/29/18 06:06: Bedside Glucose (Misc Panel) 177H 08/29/18 11:52: Bedside Glucose (Misc Panel) 252H CBC/BMP Laboratory Tests 08/29/18 06:01 Red Blood Count 3.91 L, Mean Corpuscular Volume 94.1, Mean Corpuscular Hemoglobin 28.9, Mean Corpuscular Hemoglobin Concent 30.7 L, Red Cell Distri bution Width 13.5, Calcium Level 8.8, Aspartate Amino Transf (AST/SGOT) 51 H, Alanine Aminotransferase (ALT/SGPT) 113 H, Alkaline Phosphatase 228 H, Total Bilirubin 0.3, Total Protein 7.6, Albumin 3.2 FSBS Laboratory Tests Test 08/28/18 16:37 08/28/18 23:41 08/29/18 06:06 08/29/18 11:52 Range/Units Bedside Glucose (Misc Panel) 137 185 177 252 70-105 MG/DL Discharge Medications Scheduled Amlodipine Besylate (Amlodipine Besylate) 10 Mg Tablet, 10 MG PO DAILY Aripiprazole (Abilify) 5 Mg Tablet, 5 MG PO QHS, (Reported) Buspirone HCl (Buspirone HCl) 30 Mg Tablet, 30 MG PO BID, (Reported) Cetirizine HCl (Cetirizine HCl) 10 Mg Tab, 10 MG PO DAILY, (Reported) Cholecalciferol (Vitamin D3) (Vitamin D3) 1,000 Unit Tab, 1,000 UNIT PO DAILY, (Reported) Gabapentin (Gabapentin) 300 Mg Cap, 300 MG PO TID, (Reported) Insulin Glargine,Hum.rec.anlog (Basaglar Kwikpen U-100) 100 Unit/Ml Inj, 70 UNIT SC BID, (Reported) Insulin Human Regular (Humulin R) 1 Units/0.01 Ml Soln, 1 DOSE SC ACHS, (Reported) PER SLIDING SCALE Lactobacillus Combo No.10 (Probiotic) 1 Each Capsule, 1 CAP PO QHS, (Reported) Levothyroxine Sodium (Synthroid) 25 Mcg Tab, 25 MCG PO DAILY, (Reported) Lisinopril (Lisinopril) 10 Mg Tab, 10 MG PO DAILY, (Reported) Pantoprazole Sodium (Protonix) 40 Mg Tab, 40 MG PO BID, (Reported) Prazosin Hcl (Prazosin HCl) 1 Mg Capsule, 3 MG PO QHS, (Reported) Sucralfate (Carafate) 1 Gm Tab, 1 GM PO ACHS, (Reported) Topiramate (Topiramate) 50 Mg Tab, 100 MG PO QHS, (Reported) Triamcinolone Acetonide (Triamcinolone Acetonide) 0.1 % Lot, 1 DOSE EXT BID, (Reported) USES ON ELBOWS AND FINGERS Venlafaxine HCl (Venlafaxine HCl ER) 150 Mg Tab.er.24, 150 MG PO DAILY, (Reported) Zolpidem Tartrate (Ambien) 5 Mg Tablet, 5 MG PO QHS, (Reported) Scheduled PRN Albuterol Sulfate (Ventolin Hfa) 108 Mcg/Act Aer, 2 PUFFS INH Q4H PRN for SHORTNESS OF BREATH, (Reported) Docusate Sodium (Colace) 100 Mg Cap, 100 MG PO DAILY PRN for CONSTIPATION, (Reported) Hydrocodone/Acetaminophen (Hydrocodone-Acetamin 5-325 mg) 1 Each Tablet, 1 TAB PO TID PRN for PAIN, (Reported) Ondansetron HCl (Zofran) 4 Mg Tablet, 4 MG PO Q8H PRN for NAUSEA OR VOMITING, ( Reported) Polyvinyl Alcohol (Artificial Tears) 1.4 % Debora, 1 DROP OU QID PRN for DRY EYES, (Reported) Sumatriptan Succinate (Sumatriptan Succinate) 50 Mg Tab, 50 MG PO BID PRN for MIGRAINE, (Reported) Tizanidine HCl (Tizanidine HCl) 4 Mg Tab, 4 MG PO TID PRN for MUSCLE SPASMS, (Reported) Allergies Coded Allergies: meclizine (Verified Allergy, Severe, shock, 07/15/18) prednisone (Verified Allergy, Intermediate, hives, 07/15/18) metformin (Verified Adverse Reaction, Intermediate, kidney problems, 07/15/18) IMELDA VELAZQUEZ DO Aug 29, 2018 14:12 HERBIE STOCKTON MD Aug 29, 2018 17:00
== END 2018-08-29 16:13 | disposition home or self-care (01) | DRG 282 ==
LOC: M ED 08:55 → M ED INP 11:45 → M MSPAV 12:28 → UNDODEPER 17:09
PROVIDERS: ADMIT Internal Medicine; ATTEND Internal Medicine
DX: K85.90 Acute pancreatitis without necrosis or infection, unspecified (principal); E11.40 Type 2 diabetes mellitus with diabetic neuropathy, unspecified; E88.01 Alpha-1-antitrypsin deficiency; K73.8 Other chronic hepatitis, not elsewhere classified; K21.9 Gastro-esophageal reflux disease without esophagitis; M79.7 Fibromyalgia; F41.9 Anxiety disorder, unspecified; F32.9 Major depressive disorder, single episode, unspecified; F43.10 Post-traumatic stress disorder, unspecified; E03.9 Hypothyroidism, unspecified; G43.909 Migraine, unspecified, not intractable, without status migrainosus; J30.2 Other seasonal allergic rhinitis; G89.29 Other chronic pain; K59.09 Other constipation; G47.00 Insomnia, unspecified; E78.1 Pure hyperglyceridemia; I10 Essential (primary) hypertension; M62.838 Other muscle spasm; G47.33 Obstructive sleep apnea (adult) (pediatric); J44.9 Chronic obstructive pulmonary disease, unspecified; Z87.891 Personal history of nicotine dependence; Z79.4 Long term (current) use of insulin; Z79.899 Other long term (current) drug therapy; Z88.8 Allergy status to other drugs, medicaments and biological substances; Z90.49 Acquired absence of other specified parts of digestive tract

== ENCOUNTER 2018-09-04 21:34 | Emergency (ER) | payer OTHER ==
[~2018-09-04] VITALS: Ht 162.6 cm; Wt 94.1 kg
[~2018-09-04 21:34] MED LIST changes: +AMLO10TA5 PO; +HYDR-4571 PO
[2018-09-04 22:44] LABS: HEMATOCRIT 34.2 % (36.0-47.0); HEMOGLOBIN 10.7 g/dl (12.0-15.5); MEAN CORPUSCULAR HEMOGLOBIN 29.2 pg (27.0-33.0); MEAN CORPUSCULAR HGB CONC 31.3 g/dl (32.0-36.5); MEAN CORPUSCULAR VOLUME 93.4 fl (80.0-96.0); PLATELET COUNT, AUTOMATED 319 10^3/uL (150-450); RED BLOOD COUNT 3.66 10^6/uL (4.00-5.40)
[2018-09-04] MEDS ORDERED: MORPHINE 4 MG/ML 1ML VIAL/SYRINGE (J2270) IV ONE (22:45)
[2018-09-04] MEDS ORDERED: METOCLOPRAMIDE INJ 10MG/2ML VIAL (J2765) IV ONE (22:45)
[2018-09-04] MEDS ORDERED: NS 1,000 ML IV ONE (22:45)
[2018-09-04 22:51] LABS: WHITE BLOOD COUNT 11.8 10^3/uL (4.0-10.0)
[2018-09-04 23:10] LABS: ATYPICAL LYMPH 2 % (0-5); BASOPHILS 1 % (0-4); EOSINOPHILS 4 % (0-5); LYMPHOCYTES 53 % (16-52); MONOCYTES 3 % (0-8); NEUTROPHILS 37 % (35-75)
[2018-09-04 23:11] LABS: PLATELET ESTIMATE NORMAL (NORMAL)
[2018-09-04 23:14] LABS: ALBUMIN 3.5 GM/DL (3.2-5.2); ALT/SGPT 64 U/L (12-78); BILIRUBIN,DIRECT < 0.1 MG/DL (0.0-0.2); BILIRUBIN,TOTAL 0.2 MG/DL (0.2-1.0); BLOOD UREA NITROGEN 11 MG/DL (7-18); CALCIUM LEVEL 8.9 MG/DL (8.5-10.1); CARBON DIOXIDE LEVEL 27 MEQ/L (21-32); CHLORIDE LEVEL 106 MEQ/L (98-107); CHOLESTEROL LEVEL 215 MG/DL (<200); CHOLESTEROL RISK RATIO 4.673 (<5); CREATININE FOR GFR 0.78 MG/DL (0.55-1.30); GLOMERULAR FILTRATION RATE > 60.0 (>58); GLUCOSE, FASTING 156 MG/DL (70-100); HDL CHOLESTEROL 46 MG/DL (>40); LDL CHOLESTEROL 119 MG/DL (<100); LIPASE 177 U/L (73-393); NON-HDL-C 169 MG/DL; POTASSIUM SERUM 3.5 MEQ/L (3.5-5.1); SODIUM LEVEL 142 MEQ/L (136-145); TOTAL PROTEIN 7.6 GM/DL (6.4-8.2); TRIGLYCERIDES LEVEL 251 MG/DL (<150)
[2018-09-04 23:56] LABS: CK-MB VALUE MASS < 1.0 NG/ML (<3.6); CPK CREATINE PHOSPHOKINASE 55 U/L (26-192); MB/CK RELATIVE INDEX 1.82 (< OR =4); TROPONIN I < 0.02 NG/ML (< 0.10)
[2018-09-05] MEDS ORDERED: PANTOPRAZOLE 40MG INJ (PROTONIX) (C9113) IV ONE (00:30)
[2018-09-05] MEDS ORDERED: GI COCKTAIL 50ML BTL(HYOSCYAMINE/MAALOX/LIDOCAINE VISCOUS)(1:3:1) PO ONE (00:30)
[2018-09-05] MEDS ORDERED: SUCRALFATE SUSP 1GM/10ML UD PO ONE (00:30)
--- NOTE | 2018-09-05 05:00 | REPVR ---
EXAM: CT Abdomen and Pelvis Without Contrast EXAM DATE/TIME: 09/05/2018 2:28 AM CLINICAL HISTORY: 47 years old, female; Abdominal pain; Flank; Right; Additional info: R colic TECHNIQUE: Imaging protocol: Axial computed tomography images of the abdomen and pelvis without contrast. Coronal and sagittal reformatted images were created and reviewed. Radiation optimization: All CT scans at this facility use at least one of these dose optimization techniques: automated exposure control; mA and/or kV adjustment per patient size (includes targeted exams where dose is matched to clinical indication); or iterative reconstruction. COMPARISON: CT ABD PELVIS W/O CONTRAST 08/29/2018 7:27 AM FINDINGS: Lungs: The visualized portions of the lung bases are normal. Liver: There are no focal liver lesions present. Gallbladder and bile ducts: There has been a cholecystectomy. There is stable, mild biliary ductal dilation. Pancreas: The pancreas is normal with no ductal dilation. Spleen: The spleen is normal. Adrenals: The adrenal glands are normal. Kidneys and ureters: The kidneys are normal. There are no ureteral stones or hydronephrosis. Stomach and bowel: There is no dilation or thickening of the colon. There are few, nonspecific small bowel fluid levels without dilation or thickening of the small bowel. Appendix: There has been an appendectomy. Intraperitoneal space: There is no evidence of free intraperitoneal or pelvic fluid. Vasculature: The aorta demonstrates mild atherosclerotic calcification. Lymph nodes: No lymphadenopathy is seen. Bladder: The bladder is unremarkable. No stones identified. Reproductive: The uterus is unremarkable. Bones/joints: A lucency in the proximal left femur is again seen, consistent with prior IM dino placement. No suspicious osseous lesions. No acute fractures or dislocations. Soft tissues: Unremarkable. IMPRESSION: 1. Stable mild biliary ductal dilation. 2. No ureteral stones or hydronephrosis. Electronically signed by: Oralia Garcia On 09/05/2018 05:00:23 AM
[2018-09-05] MEDS ORDERED: PROT1TAB2 PO (06:15)
[2018-09-05] MEDS ORDERED: SUCR1SS PO (06:15)
[2018-09-05 06:35] VITALS: BP 177/100
--- NOTE | 2018-09-06 06:50 | ECGEPIP ---
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
== END 2018-09-05 06:37 | disposition home or self-care (01) ==
LOC: M ED 21:34
DX: K29.70 Gastritis, unspecified, without bleeding (principal); K83.8 Other specified diseases of biliary tract; I10 Essential (primary) hypertension; E11.9 Type 2 diabetes mellitus without complications; E78.1 Pure hyperglyceridemia; K21.9 Gastro-esophageal reflux disease without esophagitis; F41.9 Anxiety disorder, unspecified; D64.9 Anemia, unspecified; E88.01 Alpha-1-antitrypsin deficiency; Z87.19 Personal history of other diseases of the digestive system; Z88.8 Allergy status to other drugs, medicaments and biological substances; Z79.899 Other long term (current) drug therapy; Z79.4 Long term (current) use of insulin
CPT/HCPCS: 74176; 80048; 80061; 80076; 82550; 82553; 83690; 84702; 85025; 93005; 96361; 96374; 96375; 99285; C9113; J2270; J2765

== ENCOUNTER 2018-09-23 19:41 | Emergency (ER) | payer OTHER ==
[~2018-09-23] VITALS: Ht 162.6 cm; Wt 95.5 kg
[~2018-09-23 19:41] MED LIST changes: -DULO1CAP2 PO; +DULO1CAP5 PO
[2018-09-23] MEDS ORDERED: IPRATROPIUM 0.5MG/ALBUTEROL 2.5MG INH SOL UD 3ML (DUONEB)(J7620) NEB ONE (20:30)
[2018-09-23 20:32] LABS: HEMATOCRIT 36.5 % (36.0-47.0); MEAN CORPUSCULAR HEMOGLOBIN 28.5 pg (27.0-33.0); MEAN CORPUSCULAR HGB CONC 30.1 g/dl (32.0-36.5); MEAN CORPUSCULAR VOLUME 94.6 fl (80.0-96.0); PLATELET COUNT, AUTOMATED 315 10^3/uL (150-450); RED BLOOD COUNT 3.86 10^6/uL (4.00-5.40)
[2018-09-23 20:38] LABS: WHITE BLOOD COUNT 13.5 10^3/uL (4.0-10.0)
[2018-09-23 21:02] LABS: BLOOD UREA NITROGEN 17 MG/DL (7-18); CARBON DIOXIDE LEVEL 25 MEQ/L (21-32); CHLORIDE LEVEL 109 MEQ/L (98-107); CREATININE FOR GFR 0.84 MG/DL (0.55-1.30); GLOMERULAR FILTRATION RATE > 60.0 (>58); GLUCOSE, FASTING 254 MG/DL (70-100); POTASSIUM SERUM 3.7 MEQ/L (3.5-5.1); SODIUM LEVEL 141 MEQ/L (136-145)
[2018-09-23 21:10] LABS: BASOPHILS 1 % (0-4); LYMPHOCYTES 57 % (16-52); MONOCYTES 3 % (0-8); NEUTROPHILS 39 % (35-75)
[2018-09-23 21:11] LABS: PLATELET ESTIMATE NORMAL (NORMAL)
[2018-09-23] MEDS ORDERED: methylPREDNISolone INJ 125 MG/2 ML VIAL (J2930) IV ONE (21:30)
[2018-09-23] MEDS ORDERED: IPRATROPIUM 0.5MG/ALBUTEROL 2.5MG INH SOL UD 3ML (DUONEB)(J7620) NEB PRN (21:30)
[2018-09-23 21:45] VITALS: BP 129/87
--- NOTE | 2018-09-23 22:31 | REP ---
Clinical: Cough and dyspnea . Comparison: 06/10/2018 . Technique: PA and lateral. Findings: The mediastinum and cardiac silhouette are normal. The lung jara are clear and without acute consolidation, effusion, or pneumothorax. The skeletal structures are intact and normal. Impression: 1. No acute cardiopulmonary process. Electronically Signed by Isidoro Jose MD 09/23/2018 10:23 P
[2018-09-23] MEDS ORDERED: PRED5SOL10 PO (23:27)
== END 2018-09-23 23:56 | disposition home or self-care (01) ==
LOC: M ED 19:41
DX: J44.1 Chronic obstructive pulmonary disease with (acute) exacerbation (principal); I50.9 Heart failure, unspecified; E11.9 Type 2 diabetes mellitus without complications; E78.5 Hyperlipidemia, unspecified; G47.30 Sleep apnea, unspecified; E88.01 Alpha-1-antitrypsin deficiency; Z88.8 Allergy status to other drugs, medicaments and biological substances; Z79.899 Other long term (current) drug therapy; Z79.4 Long term (current) use of insulin
CPT/HCPCS: 71046; 80048; 85025; 93041; 94640; 94760; 96374; 99285; J2930

== ENCOUNTER 2018-09-25 10:56 | Observation (INO) | payer OTHER ==
[~2018-09-25] VITALS: Ht 162.6 cm; Wt 93.8 kg
[2018-09-25 12:54] LABS: BASO % 0.3 % (0.0-1.0); EOS % 0.1 % (0.0-3.0); HEMATOCRIT 35.1 % (36.0-47.0); HEMOGLOBIN 10.7 g/dl (12.0-15.5); LYMPH # 0.8 10^3/uL (1.5-4.5); LYMPH % 7.2 % (24.0-44.0); MEAN CORPUSCULAR HEMOGLOBIN 28.7 pg (27.0-33.0); MEAN CORPUSCULAR HGB CONC 30.5 g/dl (32.0-36.5); MEAN CORPUSCULAR VOLUME 94.1 fl (80.0-96.0); MONO # 0.2 10^3/uL (0.0-0.8); MONO % 1.8 % (0.0-5.0); NEUTROPHILS # 10.1 10^3/uL (1.8-7.7); PLATELET COUNT, AUTOMATED 273 10^3/uL (150-450); RED BLOOD COUNT 3.73 10^6/uL (4.00-5.40); WHITE BLOOD COUNT 11.2 10^3/uL (4.0-10.0)
[2018-09-25 12:55] LABS: VENOUS HCO3 19.8 MEQ/L (23.0-27.0); VENOUS O2 SATURATION 84.3 % (60.0-80.0); VENOUS PARTIAL PRESSURE CO2 40.4 mmHg (38.0-50.0); VENOUS PARTIAL PRESSURE O2 51.7 mmHg (30.0-50.0); VENOUS PH 7.309 UNITS (7.330-7.430); VENOUS STANDARD HCO3 19.3 MEQ/L; VENOUS TOTAL CO2 21.1 MEQ/L (24.0-28.0)
[2018-09-25] MEDS ORDERED: methylPREDNISolone INJ 125 MG/2 ML VIAL (J2930) IV ONE (13:00)
--- NOTE | 2018-09-25 13:25 | REP ---
Chest x-ray: Two views. History: Shortness of breath. Comparison study: September 23, 2018. Findings: The lungs are well inflated and clear. Cardiomediastinal silhouette and bony thorax are unremarkable. Pulmonary vasculature is not increased. Impression: No active disease. Electronically Signed by Emil Booker MD 09/25/2018 01:16 P
[2018-09-25 13:32] LABS: BLOOD UREA NITROGEN 18 MG/DL (7-18); CARBON DIOXIDE LEVEL 19 MEQ/L (21-32); CHLORIDE LEVEL 106 MEQ/L (98-107); CREATININE FOR GFR 1.03 MG/DL (0.55-1.30); GLOMERULAR FILTRATION RATE > 60.0 (>58); GLUCOSE, FASTING 415 MG/DL (70-100); POTASSIUM SERUM 4.1 MEQ/L (3.5-5.1); SODIUM LEVEL 137 MEQ/L (136-145)
[2018-09-25] MEDS: IPRATROPIUM 0.5MG/ALBUTEROL 2.5MG INH SOL UD 3ML (DUONEB)(J7620) NEB PRN ×3 (13:38→14:18)
[2018-09-25 16:00] VITALS: O2SAT 99
[2018-09-25] MEDS ORDERED: GLUCAGON FOR INJ 1 MG VIAL (J1610) SC PRN (17:15)
[2018-09-25] MEDS ORDERED: GLUCOSE 4 GM CHEW TABLET PO PRN (17:15)
[2018-09-25] MEDS ORDERED: DEXTROSE 50% 50 ML SYRINGE IV PRN (17:15)
[2018-09-25] MEDS ORDERED: ACETAMINOPHEN TAB 650MG DOSE (2X325MG) PO PRN (17:15)
[2018-09-25] MEDS ORDERED: CBD OIL PO (17:22)
[2018-09-25] MEDS ORDERED: IBUP-1091 PO (17:22)
[2018-09-25] MEDS ORDERED: TRUL10IN SC (17:22)
[2018-09-25] MEDS ORDERED: PEGPOW PO (17:22)
[2018-09-25] MEDS ORDERED: PRED5SOL10 PO (17:22)
[2018-09-25] MEDS ORDERED: AMLO10TA5 PO (17:22)
[2018-09-25] MEDS: HumaLOG INSULIN (NovoLOG) PER UNIT SC SCH ×2 (17:30→21:28)
[2018-09-25] MEDS ORDERED: PERCOCET 5MG/325MG TAB PO PRN (18:15)
[2018-09-25] MEDS ORDERED: IBUPROFEN 400 MG TAB PO PRN (18:15)
[2018-09-25] MEDS ORDERED: DOCUSATE SODIUM 100 MG CAP PO PRN (18:15)
[2018-09-25] MEDS ORDERED: POLYETHYLENE GLYCOL (MIRALAX) 238GM BOTTLE PO PRN (18:15)
[2018-09-25] MEDS ORDERED: POLYVINYL ALCOHOL OPHTH SOLN 15 ML(LIQUITEARS) OU PRN (18:15)
[2018-09-25] MEDS ORDERED: ONDANSETRON 4 MG TAB (S0181) PO PRN (18:15)
[2018-09-25] MEDS ORDERED: SUMAtriptan SUCCINATE 25 MG TAB PO PRN (18:15)
[2018-09-25] MEDS: DOXYCYCLINE HYCLATE 100 MG in D5W MINI-BAG PLUS 100 ML IV SCH (19:45)
[2018-09-25] MEDS: IPRATROPIUM 0.5MG/ALBUTEROL 2.5MG INH SOL UD 3ML (DUONEB)(J7620) NEB SCH (20:00)
[2018-09-25] MEDS: PRAZOSIN 1 MG CAP PO SCH (21:23)
[2018-09-25] MEDS: SUCRALFATE 1 GM TAB PO SCH (21:24)
[2018-09-25] MEDS: PANTOPRAZOLE 40MG TAB (PROTONIX) PO SCH (21:24)
[2018-09-25] MEDS: DOCUSATE SODIUM 100 MG CAP PO SCH (21:24)
[2018-09-25] MEDS: tiZANidine 4 MG TAB PO SCH (21:24)
[2018-09-25] MEDS: GABAPENTIN 300 MG CAP PO SCH (21:24)
[2018-09-25] MEDS: TOPIRAMATE (TopAMAX) 25 MG TAB PO SCH (21:24)
[2018-09-25] MEDS: busPIRone 10 MG TAB PO SCH (21:24)
[2018-09-25] MEDS: LEVEMIR (INSULIN DETEMIR) 1 UNITS/0.01ML SC SCH (21:28)
[2018-09-26] MEDS: methylPREDNISolone INJ 40 MG/1 ML VIAL (J2920) IV SCH ×2 (03:01→15:13)
[2018-09-26] MEDS: LEVOTHYROXINE 25MCG TABLET (0.025MG) PO SCH (05:42)
[2018-09-26] MEDS: DOXYCYCLINE HYCLATE 100 MG in D5W MINI-BAG PLUS 100 ML IV SCH ×2 (05:43→17:09)
[2018-09-26 06:00] VITALS: BP 150/71
[2018-09-26 07:20] LABS: HEMATOCRIT 32.7 % (36.0-47.0); HEMOGLOBIN 9.9 g/dl (12.0-15.5); MEAN CORPUSCULAR HEMOGLOBIN 28.2 pg (27.0-33.0); MEAN CORPUSCULAR HGB CONC 30.3 g/dl (32.0-36.5); MEAN CORPUSCULAR VOLUME 93.2 fl (80.0-96.0); PLATELET COUNT, AUTOMATED 275 10^3/uL (150-450); RED BLOOD COUNT 3.51 10^6/uL (4.00-5.40); WHITE BLOOD COUNT 10.4 10^3/uL (4.0-10.0)
[2018-09-26 07:50] LABS: BLOOD UREA NITROGEN 20 MG/DL (7-18); CARBON DIOXIDE LEVEL 19 MEQ/L (21-32); CHLORIDE LEVEL 106 MEQ/L (98-107); CREATININE FOR GFR 0.89 MG/DL (0.55-1.30); GLOMERULAR FILTRATION RATE > 60.0 (>58); GLUCOSE, FASTING 414 MG/DL (70-100); POTASSIUM SERUM 4.1 MEQ/L (3.5-5.1); SODIUM LEVEL 137 MEQ/L (136-145)
[2018-09-26] MEDS: IPRATROPIUM 0.5MG/ALBUTEROL 2.5MG INH SOL UD 3ML (DUONEB)(J7620) NEB SCH ×4 (08:18→20:22)
[2018-09-26] MEDS: LEVEMIR (INSULIN DETEMIR) 1 UNITS/0.01ML SC SCH ×2 (08:24→21:47)
[2018-09-26] MEDS: ENOXAPARIN 40 MG/0.4 ML SYRINGE (J1650) SC SCH (08:24)
[2018-09-26] MEDS: TOPIRAMATE (TopAMAX) 25 MG TAB PO SCH ×2 (08:26→21:48)
[2018-09-26] MEDS: busPIRone 10 MG TAB PO SCH ×2 (08:26→21:46)
[2018-09-26] MEDS: HumaLOG INSULIN (NovoLOG) PER UNIT SC SCH ×4 (08:26→21:47)
[2018-09-26] MEDS: PANTOPRAZOLE 40MG TAB (PROTONIX) PO SCH ×2 (08:26→21:48)
[2018-09-26] MEDS: VENLAFAXINE **XR** 75MG CAPSULE PO SCH (08:26)
[2018-09-26] MEDS: SUCRALFATE 1 GM TAB PO SCH ×4 (08:26→21:48)
[2018-09-26] MEDS: DOCUSATE SODIUM 100 MG CAP PO SCH ×2 (08:26→21:48)
[2018-09-26] MEDS: GABAPENTIN 300 MG CAP PO SCH ×3 (08:26→21:48)
[2018-09-26] MEDS: tiZANidine 4 MG TAB PO SCH ×3 (08:27→21:48)
[2018-09-26] MEDS: VITAMIN D 1,000 INTERNATIONAL UNITS TABLET PO SCH (08:27)
[2018-09-26] MEDS: LISINOPRIL 10 MG TAB PO SCH (08:27)
[2018-09-26] MEDS: CETIRIZINE (ZyrTEC) 10 MG TAB PO SCH (08:27)
[2018-09-26] MEDS: amLODIPine 10 MG TAB PO SCH (08:27)
--- NOTE | 2018-09-26 09:53 | IPNPDOC ---
Date Seen The patient was seen on 09/26/18. Progress Note SUBJECTIVE: 47 Y female, history of COPD/Alpha 1 antitrypsin deficiency, DM T2, HTN, morbid obesity presents with sob and hyper glycemia no events overnight and states feels better Review of Systems no fever no chills no REAVES no chest pain no abdominal pain no diarrhea OBJECTIVE PHYSICAL EXAMINATION: VITAL SIGNS: Please see below. GENERAL: AA Ox3, comfortable HEENT: atraumatic CARDIOVASCULAR: S1 S2 regular no murmur RESPIRATORY: diminished breath sound ABDOMINAL: soft BS + no tender EXTREMITIES: no edema NEUROLOGICAL: non focal PSYCHOLOGICAL: no acute psychosis LABORATORY DATA, IMAGING STUDIES, MICROBIOLOGY: Please see below. DVT prophylaxis ordered?: yes ASSESSMENT AND PLAN: 1. COPD exacerbation, mild, no hypoxia will continue steroid, nebs and doxy 2. Alpha 1 antitrypsin deficiency she was refusing supplement and states Dr Mccurdy told she does not need it any more will check protein level 3. Hyperglycemia with DM T2 will increase Levemir to 85 Units BID and continue ISS 4. HTN, BP stable 5. Morbid obesity 6. DISPOSITION: likely tomorrow. VS, I&O, [facility] Vital Signs/I&O Vital Signs Date Time Temp Pulse Resp B/P (MAP) Pulse Ox O2 Delivery O2 Flow Rate FiO2 09/26/18 08:27 140/90 09/26/18 08:27 100 09/26/18 06:00 98.3 17 99 09/25/18 21:32 Room Air I&O- Last 24 Hours up to 6 AM 09/26/18 06:00 Intake Total 140 ml Balance 140 ml Laboratory Data 24H LABS Laboratory Tests 2 09/25/18 11:18: Bedside Glucose (Misc Panel) 452H 09/25/18 12:05: Urine Color YELLOW, Urine Appearance CLEAR, Urine pH 5.0, Urine Specific [place] 1.029, Urine Protein NEGATIVE, Urine Glucose (UA) 3+H, Urine Ketones NEGATIVE, Urine Blood 2+H, Urine Nitrite NEGATIVE, Urine Bilirubin NEGATIVE, Urine Urobi linogen 0.2, Urine Leukocyte Esterase NEGATIVE, Urine WBC (Auto) 0, Urine RBC (Auto) 1, Urine Hyaline Casts (Auto) 0, Urine Bacteria (Auto) NEGATIVE, Urine Squamous Epithelial Cells 1, Urine Mucus (Auto) SMALL, Urine Sperm (Auto) 09/25/18 12:43: Immature Granulocyte % (Auto) 0.6, White Blood Count 11.2H, Red Blood Count 3.73L, Hemoglobin 10.7L, Hematocrit 35.1L, Mean Corpuscular Volume 94.1, Mean Corpuscular Hemoglobin 28.7, Mean Corpuscular Hemoglobin Concent 30.5L, Red Cell Distribution Width 14.3, Platelet Count 273, Neutrophils (%) (Auto) 90.0H, Lymphocytes (%) (Auto) 7.2L, Monocytes (%) (Auto) 1.8, Eosinophils (%) (Auto) 0.1, Basophils (%) (Auto) 0.3, Neutrophils # (Auto) 10.1H, Lymphocytes # (Auto) 0.8L, Monocytes # (Auto) 0.2, Eosinophils # (Auto) 0.0, Basophils # (Auto) 0.0, Nucleated Red Blood Cells % (auto) 0.0, Blood Gas Bicarbonate Standard 19.3, Venous Blood pH 7.309L, Venous Blood Partial Pressure CO2 40.4, Venous Blood Partial Pressure O2 51.7H, Venous Blood Total Carbon Dioxide 21.1L, Venous Blood HCO3 19.8L, Venous Blood Oxygen Saturation 84.3H, Venous Blood Base Excess - 6.0L, Anion Gap 12, Glomerular Filtration Rate > 60.0, Blood Urea Nitrogen 18, Creatinine 1.03, Sodium Level 137, Potassium Level 4.1, Chloride Level 106, Carbon Dioxide Level 19L, Calcium Level 9.0 09/25/18 21:08: Bedside Glucose (Misc Panel) 471H 09/26/18 06:53: Nucleated Red Blood Cells % (auto) 0.0, Anion Gap 12, Glomerular Filtration Rate > 60.0, Blood Urea Nitrogen 20H, Creatinine 0.89, Sodium Level 137, Potassium Level 4.1, Chloride Level 106, Carbon Dioxide Level 19L, Calcium Level 9.0 CBC/BMP Laboratory Tests 09/25/18 12:43 Red Blood Count 3.73 L, Mean Corpuscular Volume 94.1, Mean Corpuscular Hemoglobin 28.7, Mean Corpuscular Hemoglobin Concent 30.5 L, Red Cell Distribution Width 14.3, Neutrophils (%) (Auto) 90.0 H, Lymphocytes (%) (Auto) 7.2 L, Monocytes (%) (Auto) 1.8, Eosinophils (%) (Auto) 0.1, Basophils (%) (Auto) 0.3, Neutrophils # (Auto) 10.1 H, Lymphocytes # (Auto) 0.8 L, Monocytes # (Auto) 0.2, Eosinophils # (Auto) 0.0, Basophils # (Auto) 0.0, Calcium Level 9.0 09/26/18 06:53 Red Blood Count 3.51 L, Mean Corpuscular Volume 93.2, Mean Corpuscular Hemogl obin 28.2, Mean Corpuscular Hemoglobin Concent 30.3 L, Red Cell Distribution Width 14.3, Calcium Level 9.0 JULIO C JACKSON MD Sep 26, 2018 09:53
--- NOTE | 2018-09-26 09:56 | HPE ---
DATE OF ADMISSION: 09/25/2018 PRIMARY CARE PROVIDER: Dr. Soria. BENCH EXAMINER: Dr. Mccurdy. ATTENDING PHYSICIAN: Dr. Concepcion. CHIEF COMPLAINT: Difficulty breathing and high sugar. HISTORY OF PRESENT ILLNESS: The patient is a 47-year-old white female with several chronic medical conditions listed below, came to the emergency room (ER) for management of above complaints. History is provided by herself. Per medical record, she has Alpha-1 antitrypsin deficiency, chronic obstructive pulmonary disease (COPD), as well as type 2 diabetes. She states two days ago, she developed shortness of breath. She came to the ER here. She was evaluated and she was discharged home with oral prednisone. Since then, her sugar is out of control. Today morning was 400 and she still has difficulty breathing and decided to come to the hospital for evaluation. Otherwise, denies fever, no chills, no coughing. In the ER, her initial workup was not significant; however, due to shortness of breath as well as high glucose, medicine service was called for admission. REVIEW OF SYSTEMS: Denies fever. No chills. No headache. No blurry vision. Positive shortness of breath, but no coughing. No phlegm. No chest pain. No abdominal pain. No diarrhea. No tingling, numbness, weakness in the lower extremities. All other systems reviewed were negative. PAST MEDICAL HISTORY: 1. Alpha-1 antitrypsin deficiency. 2. Chronic obstructive pulmonary disease (COPD). 3. Acid reflux. 4. Fibromyalgia. 5. Anxiety/depression. 6. Posttraumatic stress disorder (PTSD). 7. Dyslipidemia. 8. Hypothyroidism. 9. Migraine headache. 10. Insomnia. 11. Insulin-dependent diabetes. 12. Obstructive sleep apnea on continuous positive airway pressure (C-PAP). ALLERGIES: She is allergic to METFORMIN, as well as PREDNISONE, MECLIZINE. MEDICATIONS: Reviewed. PAST SURGICAL HISTORY: 1. Cholecystectomy. 2. Appendectomy. 3. (C) section times three. SOCIAL HISTORY: Remote tobacco use, quite many years ago. No alcohol abuse. No history of drug abuse and she lives at home. She is FULL CODE. FAMILY HISTORY: No family member with COPD or coronary disease. PHYSICAL EXAMINATION: VITAL SIGNS: Temperature is 96, heart rate is 120, respiratory rate 18, and blood pressure 120/66, oxygen saturation 98% on room air. GENERAL: She is awake, alert, oriented times three. She is in mild respiratory distress. HEENT: Atraumatic. Pupils equal, round, reactive to light. No jaundice. Extraocular muscles intact. Ears, nose and throat normal. Mouth: Mucous moist. NECK: No jugular venous distention (JVD) or bruits. LUNGS: Diminished breath sounds bilaterally. Mild wheezing. No crackles. HEART: S1, S2. Regular. No murmur. ABDOMEN: Soft. Bowel sounds positive. Nontender. LOWER EXTREMITIES: No edema in bilateral lower extremities. NEUROLOGIC: Nonfocal. SKIN: No rash. PSYCHOLOGIC: No acute psychosis. DIAGNOSTIC LABORATORY STUDIES: Complete blood count (CBC) and differential: WBC 11.2, hemoglobin and hematocrit (H and H) 10.7/35, platelets 273. Sodium 137, potassium 4.1, chloride 106, bicarbonate 19, BUN 18, creatinine 1.0, glucose 415. Chest x-ray reviewed. IMPRESSION: 1. Chronic obstructive pulmonary disease (COPD) exacerbation, which is mild. 2. Hyperglycemia with type 2 diabetes. 3. Acid reflux. 4. Fibromyalgia. 5. Anxiety/depression. 6. Posttraumatic stress disorder (PTSD). 7. Hypothyroidism. 8. Obesity with obstructive sleep apnea. PLAN: Patient will be admitted to medicine floor for observation. I will treat with intravenous (IV) steroids, doxycycline, as well as nebulizer for COPD exacerbation. Will continue insulin to control her sugar. Otherwise, will continue her most home medications. Will check procalcitonin to evaluate for infection. [facility]
[2018-09-26 14:00] VITALS: BP 132/77
[2018-09-26 22:00] VITALS: BP 137/79
[2018-09-26] MEDS: PRAZOSIN 1 MG CAP PO SCH (22:35)
[2018-09-27] MEDS: methylPREDNISolone INJ 40 MG/1 ML VIAL (J2920) IV SCH (02:46)
[2018-09-27] MEDS: DOXYCYCLINE HYCLATE 100 MG in D5W MINI-BAG PLUS 100 ML IV SCH (05:08)
[2018-09-27 06:00] VITALS: BP 144/80
[2018-09-27] MEDS: LEVOTHYROXINE 25MCG TABLET (0.025MG) PO SCH (06:23)
[2018-09-27] MEDS: IPRATROPIUM 0.5MG/ALBUTEROL 2.5MG INH SOL UD 3ML (DUONEB)(J7620) NEB SCH (07:16)
[2018-09-27] MEDS: ENOXAPARIN 40 MG/0.4 ML SYRINGE (J1650) SC SCH (09:06)
[2018-09-27] MEDS: LEVEMIR (INSULIN DETEMIR) 1 UNITS/0.01ML SC SCH (09:07)
[2018-09-27] MEDS: HumaLOG INSULIN (NovoLOG) PER UNIT SC SCH (09:07)
[2018-09-27] MEDS: SUCRALFATE 1 GM TAB PO SCH (09:08)
[2018-09-27] MEDS: DOCUSATE SODIUM 100 MG CAP PO SCH (09:08)
[2018-09-27] MEDS: TOPIRAMATE (TopAMAX) 25 MG TAB PO SCH (09:08)
[2018-09-27] MEDS: busPIRone 10 MG TAB PO SCH (09:08)
[2018-09-27] MEDS: PANTOPRAZOLE 40MG TAB (PROTONIX) PO SCH (09:08)
[2018-09-27] MEDS: GABAPENTIN 300 MG CAP PO SCH (09:08)
[2018-09-27 09:09] VITALS: BP 142/70
[2018-09-27] MEDS: tiZANidine 4 MG TAB PO SCH (09:09)
[2018-09-27] MEDS: VENLAFAXINE **XR** 75MG CAPSULE PO SCH (09:09)
[2018-09-27] MEDS: CETIRIZINE (ZyrTEC) 10 MG TAB PO SCH (09:09)
[2018-09-27] MEDS: amLODIPine 10 MG TAB PO SCH (09:09)
[2018-09-27] MEDS: VITAMIN D 1,000 INTERNATIONAL UNITS TABLET PO SCH (09:09)
[2018-09-27] MEDS: LISINOPRIL 10 MG TAB PO SCH (09:10)
[2018-09-27] MEDS ORDERED: BASA100I SC (09:42)
[2018-09-27] MEDS ORDERED: DOXY-350 PO (09:42)
--- NOTE | 2018-09-27 14:27 | DS.PDOC ---
Discharge Summary General Date of Admission Sep 25, 2018 at 17:14 Date of Discharge September 27, 2018 Primary Care Physician: ADALBERTO ANGELES DO Attending Physician: JULIO C JACKSON MD Discharge Summary PROCEDURES PERFORMED DURING STAY: [None]. ADMITTING DIAGNOSES: 1. COPD exacerbation 2. DM T2 with hyperglycemia DISCHARGE DIAGNOSES: 1. COPD exacerbation 2. Hyperglycemia 3. Alpha-1 antitrypsin deficiency. 4. Fibromyalgia. 5. Anxiety/depression. 6. Posttraumatic stress disorder (PTSD). 7. Dyslipidemia. 8. Hypothyroidism. 9. Migraine headache. 10. Insomnia. 11. Insulin-dependent diabetes. 12. Obstructive sleep apnea on continuous positive airway pressure (C-PAP) 13. GERD 14. Morbid obesity COMPLICATIONS/CHIEF COMPLAINT: Copd Exacerbation. HISTORY OF PRESENT ILLNESS: The patient is a 47-year-old white female with several chronic medical conditions listed below, came to the emergency room (ER) for management of above complaints. History is provided by herself. Per medical record, she has Alpha-1 antitrypsin deficiency, chronic obstructive pulmonary disease (COPD), as well as type 2 diabetes. She states two days ago, she developed shortness of breath. She came to the ER here. She was evaluated and she was discharged home with oral prednisone. Since then, her sugar is out of control. Today morning was 400 and she still has difficulty breathing and decided to come to the hospital for evaluation. Otherwise, denies fever, no chills, no coughing. In the ER, her initial workup was not significant; however, due to shortness of breath as well as high glucose, medicine service was called for admission. HOSPITAL COURSE: She was admitted on 09/25; she was treated with IV steroid, doxy and nebs for copd exacerbation; she was given insulin for glucose control. she is advised to increase her insulin Lantus from 70 units BID to 80 units BID due to poorly controlled sugar and likely related to steroid use. she has history of alpha antitrypsin deficiency and her serum alpha antitrypsin level is 92 (reference 90 to 200). Now she is close to her baseline and will go home today. DISCHARGE MEDICATIONS: Please see below. ALLERGIES: Please see below. PHYSICAL EXAMINATION ON DISCHARGE: VITAL SIGNS: Please see below. GENERAL: AA Ox3, obese HEENT: atraumatic NECK: No JVD CARDIOVASCULAR EXAMINATION: S1S2 regular, no murmur RESPIRATORY EXAMINATION: diminished breath no wheezing and no rales ABDOMINAL EXAMINATION: soft BS positive and non tender EXTREMITIES: no edema SKIN: no rash NEUROLOGICAL EXAMINATION: non focal PSYCHIATRIC EXAMINATION: no acute psychosis LABORATORY DATA: Please see below. IMAGING: chest x ray PROGNOSIS: fair ACTIVITY: [As tolerated]. DIET: diabetic diet DISPOSITION: Home, Self-Care. ITEMS TO FOLLOWUP ON ON OUTPATIENT: PCP in 1-2 weeks DISCHARGE CONDITION: [Stable]. TIME SPENT ON DISCHARGE: Greater than 36 minutes. Vital Signs/I&Os Vital Signs Date Time Temp Pulse Resp B/P (MAP) Pulse Ox O2 Delivery O2 Flow Rate FiO2 09/27/18 09:09 110 142/70 09/27/18 06:00 98.1 19 99 09/25/18 21:32 Room Air I&O- Last 24 Hours up to 6 AM 09/27/18 06:00 Intake Total 2300 ml Balance 2300 ml Laboratory Data Labs 24H Laboratory Tests 2 09/26/18 16:44: Bedside Glucose (Misc Panel) 401H 09/26/18 20:09: Bedside Glucose (Misc Panel) 350H 09/27/18 05:47: Bedside Glucose (Misc Panel) 348H FSBS Laboratory Tests Test 09/26/18 16:44 09/26/18 20:09 09/27/18 05:47 Range/Units Bedside Glucose (Misc Panel) 401 350 348 70-105 MG/DL Discharge Medications Scheduled Amlodipine Besylate (Amlodipine Besylate) 10 Mg Tablet, 10 MG PO DAILY, (Reported) Buspirone HCl (Buspirone HCl) 30 Mg Tablet, 30 MG PO BID, (Reported) Cetirizine HCl (Cetirizine HCl) 10 Mg Tab, 10 MG PO DAILY, (Reported) Cholecalciferol (Vitamin D3) (Vitamin D3) 1,000 Unit Tab, 1,000 UNIT PO DAILY, (Reported) Doxycycline Monohydrate (Doxycycline) 100 Mg Capsule, 100 MG PO BID Dulaglutide (Trulicity) 0.75 Mg/0.5 Ml Pen.injctr, 0.75 MG SC QWEEK, (Reported) TUESDAYS Gabapentin (Gabapentin) 300 Mg Cap, 300 MG PO TID, (Reported) Insulin Glargine,Hum.rec.anlog (Basaglar Kwikpen U-100) 100 Unit/Ml Inj, 80 UNIT SC BID Insulin Human Regular (Humulin R) 1 Units/0.01 Ml Soln, 1 DOSE SC ACHS, (Reported) PER SLIDING SCALE Lactobacillus Combo No.10 (Probiotic) 1 Each Capsule, 1 CAP PO QHS, (Reported) Levothyroxine Sodium (Synthroid) 25 Mcg Tab, 25 MCG PO DAILY, (Reported) Lisinopril (Lisinopril) 10 Mg Tab, 10 MG PO DAILY, (Reported) Pantoprazole Sodium (Protonix) 40 Mg Tab, 40 MG PO BID, (Reported) Prazosin Hcl (Prazosin HCl) 1 Mg Capsule, 3 MG PO QHS, (Reported) Prednisolone (Prednisolone) 15 Mg/5 Ml Solution, 60 MG PO DAILY, (Reported) PT STARTED FRIDAY (09/23/18); FOR 4 DAYS Sucralfate (Carafate) 1 Gm Tab, 1 GM PO ACHS, (Reported) Topiramate (Topiramate) 50 Mg Tab, 50 MG PO BID, (Reported) Triamcinolone Acetonide (Triamcinolone Acetonide) 0.1 % Lot, 1 DOSE EXT BID, (Reported) USES ON ELBOWS AND FINGERS Venlafaxine HCl (Venlafaxine HCl ER) 150 Mg Tab.er.24, 150 MG PO DAILY, (Reported) Scheduled PRN Albuterol Sulfate (Ventolin Hfa) 108 Mcg/Act Aer, 2 PUFFS INH Q4H PRN for SHORTNESS OF BREATH, (Reported) Cannabidiol (Cbd Oil) Btl, 500 MG PO BID PRN for PAIN, (Reported) 500 MG PER 5 ML BOTTLE Docusate Sodium (Colace) 100 Mg Cap, 100 MG PO DAILY PRN for CONSTIPATION, (Reported) Hydrocodone/Acetaminophen (Hydrocodone-Acetamin 5-325 mg) 1 Each Tablet, 1 TAB PO TID PRN for PAIN, (Reported) Ibuprofen (Ibuprofen) 200 Mg Tablet, 400 MG PO Q8H PRN for PAIN, (Reported) Ondansetron HCl (Zofran) 4 Mg Tablet, 4 MG PO Q8H PRN for NAUSEA OR VOMITING, (Reported) Polyethylene Glycol 3350 (Polyethylene Glycol 3350) 510 Gm Powder, 17 GRAM PO DAILY PRN for CONSTIPATION, (Reported) Polyvinyl Alcohol (Artificial Tears) 1.4 % Debora, 1 DROP OU BID PRN for DRY EYES, (Reported) Sumatriptan Succinate (Sumatriptan Succinate) 50 Mg Tab, 50 MG PO BID PRN for MIGRAINE, (Reported) Tizanidine HCl (Tizanidine HCl) 4 Mg Tab, 4 MG PO TID PRN for MUSCLE SPASMS, (Reported) Allergies Coded Allergies: meclizine (Verified Allergy, Severe, shock, 07/15/18) prednisone (Verified Allergy, Intermediate, hives, 09/25/18) 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
== END 2018-09-27 10:35 | disposition home or self-care (01) ==
LOC: M ED 10:56 → M ED INP 17:14 → M MSPAV 21:39
PROVIDERS: ADMIT Hospitalist; ATTEND Hospitalist
DX: J44.1 Chronic obstructive pulmonary disease with (acute) exacerbation (principal); E11.65 Type 2 diabetes mellitus with hyperglycemia; E88.01 Alpha-1-antitrypsin deficiency; M79.7 Fibromyalgia; F41.9 Anxiety disorder, unspecified; F32.9 Major depressive disorder, single episode, unspecified; F43.10 Post-traumatic stress disorder, unspecified; E78.5 Hyperlipidemia, unspecified; E03.9 Hypothyroidism, unspecified; G43.909 Migraine, unspecified, not intractable, without status migrainosus; G47.00 Insomnia, unspecified; G47.33 Obstructive sleep apnea (adult) (pediatric); K21.9 Gastro-esophageal reflux disease without esophagitis; E66.01 Morbid (severe) obesity due to excess calories; Z79.899 Other long term (current) drug therapy; Z79.2 Long term (current) use of antibiotics; Z79.4 Long term (current) use of insulin; Z79.52 Long term (current) use of systemic steroids; Z88.8 Allergy status to other drugs, medicaments and biological substances; Z87.891 Personal history of nicotine dependence
CPT/HCPCS: 36415; 71046; 80048; 81001; 82103; 82803; 84145; 85025; 85027; 94640; 96365; 96366; 96372; 96375; 96376; 99284; J1650; J2920; J2930

== ENCOUNTER 2018-10-11 18:02 | Emergency (ER) | payer OTHER ==
[~2018-10-11] VITALS: Ht 162.6 cm; Wt 95.5 kg
[~2018-10-11 18:02] MED LIST changes: -ARTI99.0 OU; +ARTIDRO2 OU; +CBD OIL PO; +IBUP-1091 PO; +PEGPOW PO; +TRUL10IN SC
[2018-10-11 19:22] LABS: BASO # 0.1 10^3/uL (0.0-0.2); BASO % 0.6 % (0.0-1.0); EOS # 0.2 10^3/uL (0.0-0.50); EOS % 1.9 % (0.0-3.0); HEMATOCRIT 35.5 % (36.0-47.0); HEMOGLOBIN 10.9 g/dl (12.0-15.5); LYMPH # 4.1 10^3/uL (1.5-4.5); LYMPH % 42.1 % (24.0-44.0); MEAN CORPUSCULAR HEMOGLOBIN 28.2 pg (27.0-33.0); MEAN CORPUSCULAR HGB CONC 30.7 g/dl (32.0-36.5); MONO # 0.7 10^3/uL (0.0-0.8); MONO % 7.5 % (0.0-5.0); NEUTROPHILS # 4.6 10^3/uL (1.8-7.7); NEUTROPHILS % 47.5 % (36.0-66.0); PLATELET COUNT, AUTOMATED 246 10^3/uL (150-450); RED BLOOD COUNT 3.86 10^6/uL (4.00-5.40); WHITE BLOOD COUNT 9.7 10^3/uL (4.0-10.0)
[2018-10-11 19:43] LABS: ALBUMIN 3.3 GM/DL (3.2-5.2); ALT/SGPT 59 U/L (12-78); BILIRUBIN,DIRECT < 0.1 MG/DL (0.0-0.2); BILIRUBIN,TOTAL 0.2 MG/DL (0.2-1.0); BLOOD UREA NITROGEN 13 MG/DL (7-18); CALCIUM LEVEL 9.1 MG/DL (8.5-10.1); CARBON DIOXIDE LEVEL 24 MEQ/L (21-32); CHLORIDE LEVEL 110 MEQ/L (98-107); CK-MB VALUE MASS < 1.0 NG/ML (<3.6); CPK CREATINE PHOSPHOKINASE 51 U/L (26-192); CREATININE FOR GFR 0.75 MG/DL (0.55-1.30); GLOMERULAR FILTRATION RATE > 60.0 (>58); GLUCOSE, FASTING 195 MG/DL (70-100); LIPASE 179 U/L (73-393); MB/CK RELATIVE INDEX 1.96 (< OR =4); POTASSIUM SERUM 3.7 MEQ/L (3.5-5.1); SODIUM LEVEL 142 MEQ/L (136-145); TOTAL PROTEIN 6.7 GM/DL (6.4-8.2); TROPONIN I < 0.02 NG/ML (< 0.10)
[2018-10-11] MEDS ORDERED: ISOVUE-370 76% 100ML VIAL (Q9967) As Ordered ONE (20:00)
--- NOTE | 2018-10-11 20:22 | REPVR ---
EXAM: CT Head Without Contrast EXAM DATE/TIME: 10/11/2018 8:06 PM CLINICAL HISTORY: 47 years old, female; Weakness, facial; Additional info: Facial dysesthesia TECHNIQUE: Imaging protocol: Computed tomography images of the head without contrast. Radiation optimization: All CT scans at this facility use at least one of these dose optimization techniques: automated exposure control; mA and/or kV adjustment per patient size (includes targeted exams where dose is matched to clinical indication); or iterative reconstruction. COMPARISON: CT Head without contrast 10/10/2017 7:04 PM FINDINGS: Brain: Normal. No hemorrhage. Unremarkable white matter. No mass effect. Ventricles: Normal. No ventriculomegaly. Bones/joints: There is hyperostosis frontalis interna. Sinuses: Visualized sinuses are unremarkable. No fluid levels. Mastoid air cells: Visualized mastoid air cells are well aerated. No mastoid effusion. Soft tissues: Unremarkable. IMPRESSION: No acute findings. Electronically signed by: Arnie Ayala On 10/11/2018 20:22:35 PM
--- NOTE | 2018-10-11 20:27 | REPVR ---
EXAM: CT Angiography Chest With Contrast EXAM DATE/TIME: 10/11/2018 8:06 PM CLINICAL HISTORY: 47 years old, female; Other: Weakness; Additional info: Facial dysesthesia TECHNIQUE: Imaging protocol: Axial computed tomographic angiography images of the chest with intravenous contrast using CT angiography protocol. Coronal and sagittal reformatted images were created and reviewed. 3D rendering: MIP reconstructed images were created and reviewed. Radiation optimization: All CT scans at this facility use at least one of these dose optimization techniques: automated exposure control; mA and/or kV adjustment per patient size (includes targeted exams where dose is matched to clinical indication); or iterative reconstruction. Contrast material: ISOVUE 370;Contrast volume: 75 ml;Contrast route: IV; COMPARISON: CT ANGIO CHEST 10/19/2017 6:48 PM FINDINGS: Pulmonary arteries: There are no pulmonary emboli. Aorta: There is no aortic dissection or aneurysm. Lungs: Bilateral geographic groundglass opacities likely related to poor respiratory effort and atelectasis. Pleural space: Unremarkable. No pneumothorax. No pleural effusion. Heart: Unremarkable. No cardiomegaly. No pericardial effusion. Lymph nodes: Unremarkable. No enlarged lymph nodes. Bones/joints: Unremarkable. No acute fracture. Soft tissues: Unremarkable. IMPRESSION: 1. There is no aortic dissection or aneurysm. 2. There are no pulmonary emboli. Electronically signed by: Arnie Ayala On 10/11/2018 20:27:03 PM
[2018-10-11] MEDS ORDERED: KETOROLAC 30 MG/ML VIAL (J1885) IV ONE (21:00)
--- NOTE | 2018-10-11 21:34 | ECGEPIP ---
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
[2018-10-11 23:53] LABS: CK-MB VALUE MASS < 1.0 NG/ML (<3.6); CPK CREATINE PHOSPHOKINASE 32 U/L (26-192); MB/CK RELATIVE INDEX 3.12 (< OR =4); TROPONIN I < 0.02 NG/ML (< 0.10)
[2018-10-12 01:15] VITALS: BP 118/80
--- NOTE | 2018-10-12 05:53 | ECGEPIP ---
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
--- NOTE | 2018-10-14 16:45 | REP ---
Portable chest, 06:52 p.m., single AP view with the patient upright: Comparison is 09/25/2089. The lung jara are clear. The cardiac size is normal. The harriet, mediastinum, and skeletal structures are unremarkable. Impression: Negative portable chest. There is no interval change. Electronically Signed by Emir Velasquez MD 10/12/2018 07:03 A
== END 2018-10-12 01:25 | disposition home or self-care (01) ==
LOC: M ED 18:02
DX: R07.89 Other chest pain (principal); E11.9 Type 2 diabetes mellitus without complications; I10 Essential (primary) hypertension; J44.9 Chronic obstructive pulmonary disease, unspecified; G89.29 Other chronic pain; M54.9 Dorsalgia, unspecified; K21.9 Gastro-esophageal reflux disease without esophagitis; Z87.891 Personal history of nicotine dependence; Z79.4 Long term (current) use of insulin; Z79.899 Other long term (current) drug therapy; Z88.8 Allergy status to other drugs, medicaments and biological substances
CPT/HCPCS: 36415; 70450; 71045; 71275; 80048; 80076; 82550; 82553; 83690; 85025; 93005; 93041; 94760; 96374; 99285; J1885; Q9967

== ENCOUNTER → 2018-10-14 | Outpatient (CLI) | payer OTHER ==
[~2018-10-14] MED LIST changes: +ARTI99.0 OU; -ARTIDRO2 OU
--- NOTE | 2018-10-14 08:55 | REP ---
Clinical: thoracic back pain. Technique: AP, lateral views of the thoracic spine Findings: Alignment and kyphosis is maintained. Vertebral bodies intact. No acute fracture / compression injury or subluxation. No degenerative changes. Paravertebral soft tissues are normal. Impression: Normal thoracic spine series. Electronically Signed by Isidoro Jose MD 10/14/2018 08:47 A
--- NOTE | 2018-10-14 08:56 | REP ---
Clinical: Back pain. Technique: AP and lateral views of the lumbosacral spine. Findings: Alignment and lordosis maintained. Vertebral bodies are intact. No acute fracture / compression injury or subluxation. No significant degenerative changes are appreciated. Evidence of prior cholecystectomy. Impression: Age-appropriate lumbosacral spine radiographs. Electronically Signed by Isidoro Jose MD 10/14/2018 08:48 A
--- NOTE | 2018-10-14 08:57 | REP ---
Clinical: Neck pain. Technique: AP and lateral views of the cervical spine. Findings: Alignment and lordosis maintained. Vertebral bodies and disc spaces are intact and relatively normal for age. Spinal canal appears patent. Spinous processes are intact. Surrounding soft tissues are unremarkable. Impression: Normal cervical spine radiographs. Electronically Signed by Isidoro Jose MD 10/14/2018 08:49 A
== END ==
LOC: M RAD 08:13
PROVIDERS: ATTEND Chiropractor
DX: M54.13 Radiculopathy, cervicothoracic region (principal); M99.01 Segmental and somatic dysfunction of cervical region; M51.36 Other intervertebral disc degeneration, lumbar region; M99.03 Segmental and somatic dysfunction of lumbar region

== ENCOUNTER 2018-10-24 07:55 | Emergency (ER) | payer OTHER ==
[~2018-10-24] VITALS: Ht 162.6 cm; Wt 95.5 kg
[~2018-10-24 07:55] MED LIST changes: -ARTI99.0 OU; +ARTIDRO2 OU
[2018-10-24] MEDS ORDERED: BACLOFEN 10 MG TAB PO ONE (09:30)
[2018-10-24] MEDS ORDERED: KETOROLAC 60 MG/2 ML VIAL (J1885) IM ONE (09:45)
[2018-10-24] MEDS ORDERED: diazePAM 5 MG TAB PO ONE (11:15)
[2018-10-24] MEDS ORDERED: CYCL5TAB PO (11:56)
[2018-10-24] MEDS ORDERED: KETO10TAB PO (11:56)
[2018-10-24 11:58] VITALS: BP 151/81
--- NOTE | 2018-10-27 15:08 | REP ---
REASON: Pain in neck after chiropractic trauma. PRIORS: None. Vertebral body height and alignment is within normal limits. The disc spaces are symmetric and well-maintained. The facet joints are well aligned bilaterally. There is a slight dextroconvex cervical spine curve. There is no abnormal paraspinal soft tissue swelling. IMPRESSION: Possible muscular spasm. No fracture. Electronically Signed by Emeterio Karimi DO 10/27/2018 05:08 P
== END 2018-10-24 12:06 | disposition home or self-care (01) ==
LOC: M ED 07:55
DX: S13.4XXA Sprain of ligaments of cervical spine, initial encounter (principal); X58.XXXA Exposure to other specified factors, initial encounter; Y92.89 Other specified places as the place of occurrence of the external cause; E11.9 Type 2 diabetes mellitus without complications; I11.0 Hypertensive heart disease with heart failure; I50.9 Heart failure, unspecified; J45.909 Unspecified asthma, uncomplicated; G62.9 Polyneuropathy, unspecified; E03.9 Hypothyroidism, unspecified; F33.9 Major depressive disorder, recurrent, unspecified; F41.9 Anxiety disorder, unspecified; F43.10 Post-traumatic stress disorder, unspecified; K21.9 Gastro-esophageal reflux disease without esophagitis; E88.01 Alpha-1-antitrypsin deficiency; Z88.8 Allergy status to other drugs, medicaments and biological substances; Z79.899 Other long term (current) drug therapy; Z79.890 Hormone replacement therapy; Z79.4 Long term (current) use of insulin
CPT/HCPCS: 72125; 96372; 99283; J1885

== ENCOUNTER → 2018-11-03 | Outpatient (REF) | payer OTHER ==
[~2018-11-03] MED LIST changes: +CYCL5TAB PO; +GABA600T4
[2018-11-03 12:36] LABS: APPEARANCE, URINE HAZY (CLEAR); BACTERIA, URINE AUTO 1+ (NEGATIVE); BILIRUBIN, URINE AUTO NEGATIVE (NEGATIVE); BLOOD, URINE BLOOD 1+ (NEGATIVE); COLOR, URINE YELLOW (YELLOW); GLUCOSE, URINE (UA) AUTO 1+ mg/dL (NEGATIVE); KETONE, URINE AUTO NEGATIVE (NEGATIVE); LEUKOCYTE ESTERASE, URINE AUTO 3+ (NEGATIVE); MUCUS, URINE SMALL (NEGATIVE); NITRITE, URINE AUTO NEGATIVE (NEGATIVE); PROTEIN, URINE AUTO NEGATIVE (NEGATIVE); RBC, URINE AUTO 3 /HPF (0-3); SPECIFIC GRAVITY URINE AUTO 1.018 (1.002-1.035); SQUAMOUS EPITHELIAL CELL UR AU 1 /HPF (0-6); UROBILINOGEN, URINE AUTO 0.2 mg/dL (0.0-2.0); WBC, URINE AUTO 6 /HPF (0-3)
[2018-11-03 13:01] LABS: MALB URINE SIEMENS 7.2 MG/L; MAU/CREAT RATIO 5.1 MCG/MG (0.0-30.0)
== END ==
LOC: M SFHCPLAZ 11:35 → M LAB REF 11:35
PROVIDERS: ATTEND Family Medicine
DX: R39.15 Urgency of urination (principal)

== ENCOUNTER 2018-11-05 15:18 | Emergency (ER) | payer OTHER ==
[~2018-11-05 15:18] MED LIST changes: -GABA600T4; -IBUP-1091 PO; +IBUP-1720 PO
[2018-11-05] MEDS ORDERED: GABA600T4 (15:38)
[2018-11-05 17:04] LABS: HEMATOCRIT 34.7 % (36.0-47.0); HEMOGLOBIN 10.6 g/dl (12.0-15.5); MEAN CORPUSCULAR HEMOGLOBIN 27.3 pg (27.0-33.0); MEAN CORPUSCULAR HGB CONC 30.5 g/dl (32.0-36.5); MEAN CORPUSCULAR VOLUME 89.4 fl (80.0-96.0); PLATELET COUNT, AUTOMATED 300 10^3/uL (150-450); RED BLOOD COUNT 3.88 10^6/uL (4.00-5.40)
[2018-11-05 17:06] LABS: WHITE BLOOD COUNT 15.9 10^3/uL (4.0-10.0)
[2018-11-05 17:28] LABS: ALBUMIN 3.4 GM/DL (3.2-5.2); ALT/SGPT 58 U/L (12-78); BILIRUBIN,TOTAL 0.1 MG/DL (0.2-1.0); BLOOD UREA NITROGEN 23 MG/DL (7-18); CALCIUM LEVEL 9.1 MG/DL (8.5-10.1); CARBON DIOXIDE LEVEL 25 MEQ/L (21-32); CHLORIDE LEVEL 104 MEQ/L (98-107); CREATININE FOR GFR 0.87 MG/DL (0.55-1.30); GLOMERULAR FILTRATION RATE > 60.0 (>58); GLUCOSE, FASTING 129 MG/DL (70-100); POTASSIUM SERUM 3.5 MEQ/L (3.5-5.1); SODIUM LEVEL 137 MEQ/L (136-145); TOTAL PROTEIN 7.9 GM/DL (6.4-8.2)
[2018-11-05 17:37] LABS: EOSINOPHILS 3 % (0-3); LYMPHOCYTES 40 % (16-44); MONOCYTES 8 % (0-5); NEUTROPHILS 49 % (28-66); PLATELET ESTIMATE NORMAL (NORMAL)
[2018-11-05] MEDS ORDERED: NS 500 ML IV ONE (17:45)
[2018-11-05] MEDS ORDERED: ONDANSETRON 4MG/2ML VIAL (J2405) IV ONE (17:45)
[2018-11-05 17:58] LABS: CK-MB VALUE MASS < 1.0 NG/ML (<3.6); CPK CREATINE PHOSPHOKINASE 32 U/L (26-192); MB/CK RELATIVE INDEX 3.12 (< OR =4); TROPONIN I < 0.02 NG/ML (< 0.10)
--- NOTE | 2018-11-05 18:39 | REPVR ---
EXAM: CT Head Without Contrast EXAM DATE/TIME: 11/05/2018 5:59 PM CLINICAL HISTORY: 48 years old, female; Dizziness; Additional info: Dizzy, headache TECHNIQUE: Imaging protocol: Computed tomography images of the head without contrast. Radiation optimization: All CT scans at this facility use at least one of these dose optimization techniques: automated exposure control; mA and/or kV adjustment per patient size (includes targeted exams where dose is matched to clinical indication); or iterative reconstruction. COMPARISON: CT Head without contrast 10/11/2018 8:04 PM FINDINGS: Brain: No CT evidence of acute intracranial hemorrhage or acute territorial infarction. No significant mass effect or midline shift. Basal cisterns patent. Ventricles: Normal in size and configuration. Bones/joints: No acute osseous abnormality. Sinuses: Grossly unremarkable. Mastoid air cells: Grossly unremarkable. Soft tissues: Grossly unremarkable. IMPRESSION: No CT evidence of acute intracranial pathology. Electronically signed by: Zbigniew Garibay On 11/05/2018 18:39:43 PM
--- NOTE | 2018-11-05 18:42 | REP ---
HISTORY: Dizziness. COMPARISON: 10/11/2018 FINDINGS: The superior mediastinal structures are midline. The cardiac silhouette is unremarkable in size, shape and position. The diaphragmatic surfaces of the lungs are regular and the costophrenic angles are clear. The pulmonary jara are clear. The imaged osseous structures are intact. IMPRESSION: There is no acute cardiopulmonary disease. Electronically Signed by Emeterio Karimi DO 11/05/2018 06:45 P
--- NOTE | 2018-11-05 18:45 | REPVR ---
EXAM: CT Cervical Spine Without Contrast EXAM DATE/TIME: 11/05/2018 5:59 PM CLINICAL HISTORY: 48 years old, female; Other: Dizzy; Additional info: Trauma TECHNIQUE: Imaging protocol: Computed tomography images of the cervical spine without contrast. Coronal and sagittal reformatted images were created and reviewed. Radiation optimization: All CT scans at this facility use at least one of these dose optimization techniques: automated exposure control; mA and/or kV adjustment per patient size (includes targeted exams where dose is matched to clinical indication); or iterative reconstruction. COMPARISON: CT Spine,cervical w/o contrast 10/24/2018 9:27 AM FINDINGS: Vertebrae: Straightening of the normal cervical lordosis. Alignment anatomic. Mild dextroscoliosis. No CT evidence of acute fracture, dislocation or subluxation. Vertebral body heights maintained. Discs/Spinal canal/Neural foramina: Mild multilevel spondylosis. No significant spinal canal or neural foraminal stenosis. Soft tissues: Grossly unremarkable. Lungs: Grossly unremarkable. IMPRESSION: 1. No CT evidence of acute cervical spine traumatic injury. 2. Additional findings, as above. Electronically signed by: Zbigniew Garibay On 11/05/2018 18:45:06 PM
[2018-11-05 22:43] VITALS: BP 147/78
--- NOTE | 2018-11-06 05:22 | ECGEPIP ---
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
== END 2018-11-05 22:45 | disposition home or self-care (01) ==
LOC: M ED 15:18 → EDSEX 15:18 → EDBD 15:18 → M ED 22:45
DX: E86.0 Dehydration (principal); E11.9 Type 2 diabetes mellitus without complications; I10 Essential (primary) hypertension; F43.10 Post-traumatic stress disorder, unspecified; F33.9 Major depressive disorder, recurrent, unspecified; F41.9 Anxiety disorder, unspecified; G47.30 Sleep apnea, unspecified; Z79.899 Other long term (current) drug therapy; Z79.4 Long term (current) use of insulin; Z88.8 Allergy status to other drugs, medicaments and biological substances; Z87.891 Personal history of nicotine dependence
CPT/HCPCS: 70450; 71046; 72125; 80053; 82550; 82553; 85025; 93005; 96374; 99285; J2405

== ENCOUNTER → 2018-11-14 | Outpatient (CLI) | payer OTHER ==
[~2018-11-14] MED LIST changes: +CYCL10TA PO; +FLAG500T PO; +GABA600T4; +GABA600T4 PO; +MONT10TA2 PO; +NEUR100C PO
--- NOTE | 2018-12-01 12:39 | REP ---
Clinical: Cervical radiculopathy. Technique: Standard noncontrast MRI of the cervical spine. Findings: Normal alignment and lordosis is maintained. The cervical vertebral bodies demonstrate normal contour and signal intensity. Incidental small benign 5 mm hemangioma is identified in the C5 vertebral body. The intervertebral discs demonstrate mild age-related disc desiccation without significant disc bulge or herniation. The spinal canal is normal and without evidence for canal stenosis neural foramen and exiting nerve roots appear normal and without evidence for impingement. Visualized structures of the midbrain and posterior fossa are normal in appearance. Impression: Essentially normal age appropriate cervical spine MRI. Incidental 5 mm benign hemangioma within the C5 vertebral body. Electronically Signed by Isidoro Jose MD 12/01/2018 12:31 P
== END ==
LOC: M RAD 11:05
PROVIDERS: ATTEND Family Medicine
DX: M54.12 Radiculopathy, cervical region (principal); D18.09 Hemangioma of other sites

== ENCOUNTER 2018-11-23 11:08 | Inpatient (IN) | payer OTHER ==
[~2018-11-23] VITALS: Ht 165.1 cm; Wt 92.6 kg
[~2018-11-23 11:08] MED LIST changes: -AZIT500T2 PO; +AZIT500T5 PO; -CYCL10TA PO; -FLAG500T PO; -GABA600T4 PO; -MONT10TA2 PO; -NEUR100C PO; -TRAZ-163 PO; +TRAZ-257 PO
[2018-11-23] MEDS ORDERED: NEUR100C PO (11:37)
[2018-11-23] MEDS ORDERED: BASA100I SC (11:37)
[2018-11-23 12:07] LABS: BASO # 0.1 10^3/uL (0.0-0.2); BASO % 0.5 % (0.0-1.0); EOS # 0.1 10^3/uL (0.0-0.5); EOS % 0.5 % (0.0-3.0); HEMATOCRIT 40.4 % (36.0-47.0); HEMOGLOBIN 12.6 g/dl (12.0-15.5); LYMPH # 2.9 10^3/uL (1.5-5.0); LYMPH % 22.1 % (24.0-44.0); MEAN CORPUSCULAR HGB CONC 31.2 g/dl (32.0-36.5); MEAN CORPUSCULAR VOLUME 92.9 fl (80.0-96.0); MONO # 0.7 10^3/uL (0.0-0.8); MONO % 5.4 % (0.0-5.0); NEUTROPHILS # 9.3 10^3/uL (1.5-8.5); NEUTROPHILS % 70.9 % (36.0-66.0); PLATELET COUNT, AUTOMATED 282 10^3/uL (150-450); RED BLOOD COUNT 4.35 10^6/uL (4.00-5.40); WHITE BLOOD COUNT 13.1 10^3/uL (4.0-10.0)
[2018-11-23 12:28] LABS: HCG, SERUM QUALITATIVE NEGATIVE (NEGATIVE)
[2018-11-23] MEDS ORDERED: PANTOPRAZOLE 40MG INJ (PROTONIX) (C9113) IV ONE (12:30)
[2018-11-23] MEDS ORDERED: NS 1,000 ML IV ONE (12:30)
[2018-11-23] MEDS ORDERED: ONDANSETRON 4MG/2ML VIAL (J2405) IV ONE (12:30)
[2018-11-23 12:32] LABS: ALBUMIN 3.5 GM/DL (3.2-5.2); ALT/SGPT 82 U/L (12-78); BILIRUBIN,DIRECT < 0.1 MG/DL (0.0-0.2); BILIRUBIN,TOTAL 0.3 MG/DL (0.2-1.0); BLOOD UREA NITROGEN 23 MG/DL (7-18); CALCIUM LEVEL 9.1 MG/DL (8.5-10.1); CARBON DIOXIDE LEVEL 19 MEQ/L (21-32); CHLORIDE LEVEL 101 MEQ/L (98-107); CREATININE FOR GFR 2.59 MG/DL (0.55-1.30); GLOMERULAR FILTRATION RATE 21.2 (>58); GLUCOSE, FASTING 342 MG/DL (70-100); LIPASE 271 U/L (73-393); POTASSIUM SERUM 4.1 MEQ/L (3.5-5.1); SODIUM LEVEL 133 MEQ/L (136-145); TOTAL PROTEIN 8.3 GM/DL (6.4-8.2)
[2018-11-23] MEDS ORDERED: MONT10TA2 PO (14:40)
[2018-11-23] MEDS ORDERED: CYCL10TA PO (14:40)
[2018-11-23] MEDS ORDERED: GABA600T4 PO (14:40)
[2018-11-23 15:45] LABS: HEPATITIS A ANTIBODY IGM NEGATIVE (NEGATIVE); HEPATITIS B CORE ANTIBODY IGM NEGATIVE (NEGATIVE); HEPATITIS B SURFACE ANTIGEN NEGATIVE (NEGATIVE); HEPATITIS C VIRUS ABY INDEX 0.1 INDEX (<0.8)
[2018-11-23] MEDS ORDERED: SUMAtriptan SUCCINATE 25 MG TAB PO PRN (15:45)
[2018-11-23] MEDS ORDERED: POLYVINYL ALCOHOL OPHTH SOLN 15 ML(LIQUITEARS) OU PRN (15:45)
[2018-11-23] MEDS ORDERED: ALBUTEROL SULFATE 2.5 MG/0.5 ML INH NEB SOLN NEB PRN (15:45)
[2018-11-23] MEDS: tiZANidine 4 MG TAB PO SCH ×2 (16:00→20:52)
[2018-11-23] MEDS ORDERED: GLUCOSE 4 GM CHEW TABLET PO PRN (16:00)
[2018-11-23] MEDS: GABAPENTIN 300 MG CAP PO SCH ×2 (16:00→20:51)
[2018-11-23] MEDS ORDERED: GLUCAGON FOR INJ 1 MG VIAL (J1610) SC PRN (16:00)
[2018-11-23] MEDS ORDERED: DEXTROSE 50% 50 ML SYRINGE IV PRN (16:00)
[2018-11-23] MEDS: NS 1,000 ML IV SCH (16:01)
[2018-11-23] MEDS ORDERED: LevoFLOXacin IV 250 MG in IV 1 EA IV SCH (17:00)
[2018-11-23 17:35] VITALS: BP 136/85
[2018-11-23] MEDS: metroNIDAZOLE 500 MG in IV 1 EA IV SCH (18:06)
[2018-11-23] MEDS: ONDANSETRON 4MG/2ML VIAL (J2405) IV SCH (18:06)
[2018-11-23] MEDS: HumaLOG INSULIN (NovoLOG) PER UNIT SC SCH ×2 (18:07→20:52)
--- NOTE | 2018-11-23 18:50 | HPEPDOC ---
General Date of Admission Nov 23, 2018 at 14:15 Date of Service: Nov 23, 2018 Chief Complaint The patient is a 48-year-old female admitted with a reason for visit of Dehydration Renal Failure. Source: Patient, Old records Exam Limitations: No limitations Timing/Duration: Day(s) Severity: Moderate Associated Symptoms: Fever, Headaches, Nausea, Dizziness History of Present Illness This is a 48-year-old female who notes onset of severe diarrhea that woke her from sleep on Friday. It was accompanied by fever up to 101, nausea and body aches. She's also had significant abdominal pain, cramping and headaches. She has had overall fatigue. She states that her stools are yellow and that she has an every 30-45 minutes. There is no blood with her stools. She has tried to relieve them with Imodium with no effect. Patient initially does not know of any exposures. However, we did note that she was on antibiotics about one month ago. She also notes that in the day or 2 prior to onset of diarrhea she had an egg salad sandwich from a [employer] and she also had food from [employer]. Home Medications Scheduled Amlodipine Besylate (Amlodipine Besylate) 10 Mg Tablet, 10 MG PO DAILY, (Reported) Buspirone HCl (Buspirone HCl) 30 Mg Tablet, 30 MG PO BID, (Reported) Cetirizine HCl (Cetirizine HCl) 10 Mg Tab, 10 MG PO DAILY, (Reported) Cholecalciferol (Vitamin D3) (Vitamin D3) 1,000 Unit Tab, 1,000 UNIT PO DAILY, (Reported) Cyclobenzaprine HCl (Cyclobenzaprine HCl) 10 Mg Tablet, 10 MG PO QHS, (Reported) Dulaglutide (Trulicity) 0.75 Mg/0.5 Ml Pen.injctr, 0.75 MG SC QWEEK, (Reported) TUESDAYS Gabapentin (Gabapentin) 600 Mg Tablet, 600 MG PO TID, (Reported) Insulin Glargine,Hum.rec.anlog (Basaglar Kwikpen U-100) 100 Unit/1 Ml Insuln.pen, 70 UNIT SC BID, (Reported) Insulin Human Regular (Humulin R) 1 Units/0.01 Ml Soln, 1 DOSE SC ACHS, (Reported) PER SLIDING SCALE Lactobacillus Combo No.10 (Probiotic) 1 Each Capsule, 1 CAP PO QHS, (Reported) Levothyroxine Sodium (Synthroid) 25 Mcg Tab, 25 MCG PO DAILY, (Reported) Lisinopril (Lisinopril) 10 Mg Tab, 10 MG PO DAILY, (Reported) Montelukast Sodium (Montelukast Sodium) 10 Mg Tablet, 10 MG PO QHS, (Reported) Pantoprazole Sodium (Protonix) 40 Mg Tab, 40 MG PO BID, (Reported) Prazosin Hcl (Prazosin HCl) 1 Mg Capsule, 3 MG PO QHS, (Reported) Tizanidine HCl (Tizanidine HCl) 4 Mg Tab, 4 MG PO TID, (Reported) Topiramate (Topiramate) 50 Mg Tab, 50 MG PO BID, (Reported) Venlafaxine HCl (Venlafaxine HCl ER) 150 Mg Tab.er.24, 150 MG PO DAILY, (Reported) Scheduled PRN Albuterol Sulfate (Ventolin Hfa) 108 Mcg/Act Aer, 2 PUFFS INH Q4H PRN for SHORTNESS OF BREATH, (Reported) Docusate Sodium (Colace) 100 Mg Cap, 100 MG PO DAILY PRN for CONSTIPATION, (Repo rted) Ibuprofen (Ibuprofen) 200 Mg Tablet, 400 MG PO Q8H PRN for PAIN, (Reported) Ondansetron HCl (Zofran) 4 Mg Tablet, 4 MG PO Q8H PRN for NAUSEA OR VOMITING, (Reported) Polyethylene Glycol 3350 (Polyethylene Glycol 3350) 510 Gm Powder, 17 GRAM PO DAILY PRN for CONSTIPATION, (Reported) Polyvinyl Alcohol (Artificial Tears) 1.4 % Debora, 1 DROP OU BID PRN for DRY EYES, (Reported) Sumatriptan Succinate (Sumatriptan Succinate) 50 Mg Tab, 50 MG PO BID PRN for MIGRAINE, (Reported) Triamcinolone Acetonide (Triamcinolone Acetonide) 0.1 % Lot, 1 DOSE EXT BID PRN for RASH, (Reported) USES ON ELBOWS AND FINGERS Allergies Coded Allergies: meclizine (Verified Allergy, Severe, shock, 11/05/18) prednisone (Verified Allergy, Intermediate, hives, 11/05/18) PT 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 ONLY 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 TO A TOPPER PACKER THE TABLETS; LIQUID FORMULATIONS ARE FINE metformin (Verified Adverse Reaction, Intermediate, kidney problems, 11/05/18) Past Medical History Medical History Past medical history includes alpha-1 antitrypsin deficiency, COPD, gastroesophageal reflux disease, fibromyalgia, dyslipidemia, hypothyroidism, migraine headache syndrome, tmh-nvqrjkx-kmovkdkxe diabetes mellitus, obstructive sleep apnea with use of continuous positive airway pressure, posttraumatic stress disorder, depression with anxiety features, morbid obesity Surgical History Surgery history includes appendectomy, cholecystectomy, tonsil ectomy, C- sections in the past, left femoral dino placement and removal, Port-A-Cath placement and removal Family History There is maternal history of atrial fibrillation, hypertension and diabetes mellitus. There is paternal history of hypertension and diabetes. Both parents and one of her siblings are carriers of the alpha-1 antitrypsin deficiency gene. Social History * Smoker: former Smoker (20 pack year smoking history that has been remote for 8 years) Alcohol: occationally Drugs: denies She is classified as disabled. 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 A-FIB/CHADSVASC A-FIB History Current/History of A-Fib/PAF?: No Current PO Anticoag Therapy: No Review of Systems Other systems 10 system review is otherwise negative except as stated in the HPI. Physical Examination General Exam: Positive: Alert, Cooperative, No Acute Distress Eye Exam: Positive: PERRLA, Conjunctiva & lids normal, EOMI ENT Exam: Positive: Atraumatic, Mucous membr. moist/pink, Pharynx Normal Neck Exam: Positive: Supple; Negative: JVD, thyromegaly Chest Exam: Positive: Clear to auscultation, Normal air movement Heart Exam: Positive: Rate Normal, Regular Rhythm, Normal S1, Normal S2; Negative: Murmurs, Rubs Telemetry: Positive: No significant arrhythmia Abdomen Exam: Positive: Normal bowel sounds, Soft, Other (morbid central obesity); Negative: Tenderness, Hepatospenomegaly Extremity Exam: Positive: Normal pulses; Negative: Clubbing, Cyanosis, Edema Skin Exam: Positive: Nl turgor and temperature (no jaundice) Neuro Exam: Positive: Normal Gait, Normal Speech, Cranial Nerves 3-12 NL, Reflexes 2+ Psych Exam: Positive: Mental status NL, Mood NL, Oriented x 3 Vital Signs Vital Signs Date Time Temp Pulse Resp B/P (MAP) Pulse Ox O2 Delivery O2 Flow Rate FiO2 11/23/18 17:35 96.5 98 18 136/85 (102) 99 11/23/18 17:19 Room Air Laboratory Data Labs 24H Laboratory Tests 2 11/23/18 11:45: Immature Granulocyte % (Auto) 0.6, White Blood Count 13.1H, Red Blood Count 4.35, Hemoglobin 12.6, Hematocrit 40.4, Mean Corpuscular Volume 92.9, Mean Corpuscular Hemoglobin 29.0, Mean Corpuscular Hemoglobin Concent 31.2L, Red Cell Distribution Width 17.2H, Platelet Count 282, Neutrophils (%) (Auto) 70.9H, Lymphocytes (%) (Auto) 22.1L, Monocytes (%) (Auto) 5.4H, Eosinophils (%) (Auto) 0.5, Basophils (%) (Auto) 0.5, Neutrophils # (Auto) 9.3H, Lymphocytes # (Auto) 2.9, Monocytes # (Auto) 0.7, Eosinophils # (Auto) 0.1, Basophils # (Auto) 0.1, Nucleated Red Blood Cells % (auto) 0.0, Anion Gap 13, Glomerular Filtration Rate 21.2L, Calcium Level 9.1, Aspartate Amino Transf (AST/SGOT) 52H, Alanine Aminotransferase (ALT/SGPT) 82H, Alkaline Phosphatase 286H, Total Bilirubin 0.3, Direct Bilirubin < 0.1, Total Protein 8.3H, Albumin 3.5, Albumin/Globulin Ratio 0.73L, Lipase 271, Human Chorionic Gonadotropin, Qual NEGATIVE, Hepatitis A IgM Antibody NEGATIVE, Hepatitis B Surface Antigen NEGATIVE, Hepatitis B Core IgM Antibody NEGATIVE, Hepatitis C Antibody Index 0.1 11/23/18 17:56: Bedside Glucose (Misc Panel) 120H CBC/BMP Laboratory Tests 11/23/18 11:45 Red Blood Count 4.35, Mean Corpuscular Volume 92.9, Mean Corpuscular Hemoglobin 29.0, Mean Corpuscular Hemoglobin Concent 31.2 L, Red Cell Distribution Width 17.2 H, Neutrophils (%) (Auto) 70.9 H, Lymphocytes (%) (Auto) 22.1 L, Monocytes (%) (Auto) 5.4 H, Eosinophils (%) (Auto) 0.5, Basophils (%) (Auto) 0.5, Neutrophils # (Auto) 9.3 H, Lymphocytes # (Auto) 2.9, Monocytes # (Auto) 0.7, Eosinophils # (Auto) 0.1, Basophils # (Auto) 0.1 Microbiology Microbiology 11/23/18 Gastrointestinal Tract Panel (PCR) - Final, Complete Assessment/Plan 1. Acute enteritis/colitis. Patient did have stool sent for infection panel, which is negative fortunately. Patient has been started on Levaquin and Flagyl. If her diarrhea continues, we can consider use of agents such as Imodium or Lomotil. 2. Acute kidney injury. The patient may have acute kidney injury superimposed on chronic kidney disease. We note that she has a creatinine of 2.59. Baseline has ranged from 0.6 - 1.5. We will monitor response to aggressive IV hydration as she appears to have had significant stool volume losses. She does not require electrolyte correction at this time. 3. Cuj-qhmyqnj-cnkxlllhf diabetes mellitus. She has been restored to her usual diabetes control regimen as closely as possible. She does have hyperglycemia with blood sugars greater than 300 right now. We have added hospital sliding scale insulin as well. 4. Depression with anxiety features. We placed the patient back on her Effexor to maintain mood stabilization. Plan / VTE VTE Prophylaxis Ordered?: Yes Plan IVF: Initiate Diet: Continue Current Activity: Continue Current Medications: Start Antibiotics Diagnostics: Check Labs, Repeat Labs in AM BRENNA JAIN MD Nov 23, 2018 18:50
[2018-11-23] MEDS: LevoFLOXacin IV 250 MG in IV 1 EA IV SCH (19:44)
[2018-11-23 20:21] VITALS: BP 140/65
[2018-11-23] MEDS: HEPARIN SOD (PORCINE) 5000 UNITS/ML VIAL SQ SCH (20:50)
[2018-11-23] MEDS: busPIRone 10 MG TAB PO SCH (20:52)
[2018-11-23] MEDS: MONTELUKAST 10 MG TAB PO SCH (20:52)
[2018-11-23] MEDS: PANTOPRAZOLE 40MG TAB (PROTONIX) PO SCH (20:52)
[2018-11-23] MEDS: CYCLOBENZAPRINE 10 MG TAB PO SCH (20:52)
[2018-11-23] MEDS: TOPIRAMATE (TopAMAX) 25 MG TAB PO SCH (20:52)
[2018-11-23] MEDS: LACTOBACILLUS ACIDOPHILUS CAP (BACID) PO SCH (20:52)
[2018-11-23] MEDS: LEVEMIR (INSULIN DETEMIR) 1 UNITS/0.01ML SC SCH (20:53)
[2018-11-23] MEDS: PRAZOSIN 1 MG CAP PO SCH (21:48)
[2018-11-23] MEDS: ACETAMINOPHEN TAB 650MG DOSE (2X325MG) PO PRN (21:48)
[2018-11-23] MEDS ORDERED: METOCLOPRAMIDE INJ 10MG/2ML VIAL (J2765) IV PRN (22:00)
[2018-11-24] MEDS: ONDANSETRON 4MG/2ML VIAL (J2405) IV SCH ×5 (01:48→23:35)
[2018-11-24] MEDS: metroNIDAZOLE 500 MG in IV 1 EA IV SCH ×3 (01:48→17:27)
[2018-11-24] MEDS: NS 1,000 ML IV SCH ×3 (01:49→15:07)
[2018-11-24] MEDS: LEVOTHYROXINE 25MCG TABLET (0.025MG) PO SCH (06:03)
[2018-11-24] MEDS: HEPARIN SOD (PORCINE) 5000 UNITS/ML VIAL SQ SCH ×3 (06:04→21:12)
[2018-11-24 06:30] LABS: HEMATOCRIT 31.2 % (36.0-47.0); MEAN CORPUSCULAR HEMOGLOBIN 27.5 pg (27.0-33.0); MEAN CORPUSCULAR HGB CONC 30.4 g/dl (32.0-36.5); MEAN CORPUSCULAR VOLUME 90.2 fl (80.0-96.0); PLATELET COUNT, AUTOMATED 205 10^3/uL (150-450); RED BLOOD COUNT 3.46 10^6/uL (4.00-5.40); WHITE BLOOD COUNT 7.2 10^3/uL (4.0-10.0)
[2018-11-24 06:39] LABS: HEMOGLOBIN 9.5 g/dl (12.0-15.5)
[2018-11-24 06:55] LABS: ALBUMIN 2.6 GM/DL (3.2-5.2); ALT/SGPT 51 U/L (12-78); BILIRUBIN,TOTAL 0.1 MG/DL (0.2-1.0); BLOOD UREA NITROGEN 18 MG/DL (7-18); CALCIUM LEVEL 8.5 MG/DL (8.5-10.1); CARBON DIOXIDE LEVEL 19 MEQ/L (21-32); CHLORIDE LEVEL 116 MEQ/L (98-107); CREATININE FOR GFR 1.03 MG/DL (0.55-1.30); GLOMERULAR FILTRATION RATE > 60.0 (>58); GLUCOSE, FASTING 102 MG/DL (70-100); POTASSIUM SERUM 3.3 MEQ/L (3.5-5.1); SODIUM LEVEL 144 MEQ/L (136-145); TOTAL PROTEIN 6.1 GM/DL (6.4-8.2)
[2018-11-24] MEDS: HumaLOG INSULIN (NovoLOG) PER UNIT SC SCH ×4 (07:30→21:00)
[2018-11-24 07:34] VITALS: BP 145/72
[2018-11-24] MEDS ORDERED: POTASSIUM CHLORIDE 10 MEQ SR TABLET PO ONE (08:00)
[2018-11-24] MEDS: CETIRIZINE (ZyrTEC) 10 MG TAB PO SCH (08:53)
[2018-11-24] MEDS: GABAPENTIN 300 MG CAP PO SCH ×3 (08:53→21:11)
[2018-11-24] MEDS: VITAMIN D 1,000 INTERNATIONAL UNITS TABLET PO SCH (08:53)
[2018-11-24] MEDS: VENLAFAXINE **XR** 75MG CAPSULE PO SCH (08:53)
[2018-11-24] MEDS: PANTOPRAZOLE 40MG TAB (PROTONIX) PO SCH ×2 (08:53→21:10)
[2018-11-24] MEDS: amLODIPine 10 MG TAB PO SCH (08:54)
[2018-11-24] MEDS: TOPIRAMATE (TopAMAX) 25 MG TAB PO SCH ×2 (08:54→21:10)
[2018-11-24] MEDS: tiZANidine 4 MG TAB PO SCH ×3 (08:54→21:11)
[2018-11-24] MEDS: LEVEMIR (INSULIN DETEMIR) 1 UNITS/0.01ML SC SCH ×2 (08:55→21:12)
[2018-11-24] MEDS: busPIRone 10 MG TAB PO SCH ×2 (09:12→21:11)
--- NOTE | 2018-11-24 15:10 | IPNPDOC ---
Text Note Date of Service The patient was seen on 11/24/18. NOTE SUBJECTIVE: The patient is reporting decreased rate and volume of diarrhea. She does have some occasional abdominal cramping. Patient was admitted with acute enteritis. OBJECTIVE: Please see vital signs below Physical exam: HENT: No adenopathy or thyromegaly, no scleral icterus, oral mucosa is moist, neck is supple. Cardiovascular: Regular rate and rhythm with a normal S1 and S2 Respiratory: Clear to auscultation, good air movement. Abdomen: Soft, moderate central obesity, no focal tenderness to palpation, bowel tones are present. Extremities: No peripheral edema or lesions, pedal pulses are palpable. Neuro exam: No focal neuromotor or sensory deficit ASSESSMENT/PLAN: 1. Acute enteritis/colitis. Patient has mildly decreased diarrhea. She remains on Levaquin and Flagyl. Stool infection panel is negative. 2. Acute kidney injury. This appears to have resolved after aggressive IV hydration. Creatinine has decreased from 2.59, down to 1.03. She does not require electrolyte correction. 3. Qrw-fhnbahr-agzjjxqig diabetes mellitus. With yarsani of the patient's diabetes regimen serum glucose is ranging 132 to 161. Depression/anxiety. Patient remains on Effexor. VS,Fishbone, I+O VS, Fishbone, I+O Laboratory Tests 11/24/18 06:17 Red Blood Count 3.46 L, Mean Corpuscular Volume 90.2, Mean Corpuscular Hemoglo bin 27.5, Mean Corpuscular Hemoglobin Concent 30.4 L, Red Cell Distribution Width 17.3 H, Calcium Level 8.5, Aspartate Amino Transf (AST/SGOT) 21, Alanine Aminotransferase (ALT/SGPT) 51, Alkaline Phosphatase 186 H, Total Bilirubin 0.1 #L, Total Protein 6.1 #L, Albumin 2.6 #L Vital Signs Date Time Temp Pulse Resp B/P (MAP) Pulse Ox O2 Delivery O2 Flow Rate FiO2 11/24/18 08:54 82 145/72 11/24/18 07:34 99.2 16 96 11/23/18 17:19 Room Air I&O- Last 24 Hours up to 6 AM 11/24/18 06:00 Intake Total 2450 ml Balance 2450 ml BRENNA JAIN MD Nov 24, 2018 15:10
[2018-11-24 15:37] LABS: HEMATOCRIT 33.2 % (36.0-47.0); HEMOGLOBIN 10.4 g/dl (12.0-15.5); MEAN CORPUSCULAR HEMOGLOBIN 28.5 pg (27.0-33.0); MEAN CORPUSCULAR HGB CONC 31.3 g/dl (32.0-36.5); PLATELET COUNT, AUTOMATED 225 10^3/uL (150-450); RED BLOOD COUNT 3.65 10^6/uL (4.00-5.40); WHITE BLOOD COUNT 8.3 10^3/uL (4.0-10.0)
[2018-11-24 15:57] LABS: BLOOD UREA NITROGEN 9 MG/DL (7-18); CALCIUM LEVEL 9.3 MG/DL (8.5-10.1); CARBON DIOXIDE LEVEL 23 MEQ/L (21-32); CHLORIDE LEVEL 113 MEQ/L (98-107); CREATININE FOR GFR 0.85 MG/DL (0.55-1.30); GLOMERULAR FILTRATION RATE > 60.0 (>58); GLUCOSE, FASTING 143 MG/DL (70-100); POTASSIUM SERUM 3.8 MEQ/L (3.5-5.1); SODIUM LEVEL 143 MEQ/L (136-145)
[2018-11-24] MEDS: LevoFLOXacin IV 250 MG in IV 1 EA IV SCH (19:45)
[2018-11-24 20:59] VITALS: BP 156/88
[2018-11-24] MEDS: PRAZOSIN 1 MG CAP PO SCH (21:10)
[2018-11-24] MEDS: CYCLOBENZAPRINE 10 MG TAB PO SCH (21:11)
[2018-11-24] MEDS: LACTOBACILLUS ACIDOPHILUS CAP (BACID) PO SCH (21:11)
[2018-11-24] MEDS: MONTELUKAST 10 MG TAB PO SCH (21:11)
[2018-11-24] MEDS: ACETAMINOPHEN TAB 650MG DOSE (2X325MG) PO PRN (21:13)
[2018-11-25] MEDS: metroNIDAZOLE 500 MG in IV 1 EA IV SCH ×3 (02:48→17:39)
[2018-11-25] MEDS: ONDANSETRON 4MG/2ML VIAL (J2405) IV SCH ×4 (05:43→23:00)
[2018-11-25] MEDS: LEVOTHYROXINE 25MCG TABLET (0.025MG) PO SCH (05:43)
[2018-11-25] MEDS: HEPARIN SOD (PORCINE) 5000 UNITS/ML VIAL SQ SCH ×3 (05:43→20:36)
[2018-11-25] MEDS: NS 1,000 ML IV SCH (05:44)
[2018-11-25 06:00] VITALS: BP 145/87
[2018-11-25] MEDS: HumaLOG INSULIN (NovoLOG) PER UNIT SC SCH ×4 (07:30→21:00)
[2018-11-25] MEDS: TOPIRAMATE (TopAMAX) 25 MG TAB PO SCH ×2 (08:32→20:35)
[2018-11-25] MEDS: CETIRIZINE (ZyrTEC) 10 MG TAB PO SCH (08:32)
[2018-11-25] MEDS: VENLAFAXINE **XR** 75MG CAPSULE PO SCH (08:32)
[2018-11-25] MEDS: busPIRone 10 MG TAB PO SCH ×2 (08:32→20:34)
[2018-11-25] MEDS: GABAPENTIN 300 MG CAP PO SCH ×3 (08:33→20:35)
[2018-11-25] MEDS: tiZANidine 4 MG TAB PO SCH ×3 (08:33→20:35)
[2018-11-25] MEDS: VITAMIN D 1,000 INTERNATIONAL UNITS TABLET PO SCH (08:33)
[2018-11-25] MEDS: amLODIPine 10 MG TAB PO SCH (08:33)
[2018-11-25] MEDS: PANTOPRAZOLE 40MG TAB (PROTONIX) PO SCH ×2 (08:33→20:38)
--- NOTE | 2018-11-25 12:27 | IPNPDOC ---
Text Note Date of Service The patient was seen on 11/25/18. NOTE SUBJECTIVE: Ms. Vail is reporting decreased abdominal discomfort. She is not having any nausea or vomiting. She is having decreasing stool frequency and volume. She is having increased appetite and would like to advance her diet. She is admitted with acute enteritis and colitis. OBJECTIVE: Please see vital signs below Physical exam: HENT: No adenopathy or thyromegaly, no scleral icterus, oral mucosa is moist, neck is supple. Cardiovascular: Regular rate and rhythm with a normal S1 and S2 Respiratory: Clear to auscultation, good air movement. Abdomen: Soft, moderate central obesity, no focal tenderness to palpation, bowel tones are present. Extremities: No peripheral edema or lesions, pedal pulses are palpable. Neuro exam: No focal neuromotor or sensory deficit ASSESSMENT/PLAN: 1. Acute enteritis/colitis. Patient does have decreasing diarrhea. She has decreasing abdominal discomfort. Her appetite is returning. She has been treated with empiric antibiotics in the form of Levaquin and Flagyl. Still infection panel was negative. We will stop her IV fluids and advance her diet; if she tolerates this. We anticipate be to discharge the patient home on oral antibiotics tomorrow. 2. Acute kidney injury. Elevated creatinine is normalized after aggressive IV hydration. There has been no need for electrolyte correction. 3. Lol-wnmquhw-kjjxmzhot diabetes mellitus. Patient maintains good glycemic control on her usual home regimen. 4. Depression/anxiety. Patient remains stable on Effexor XR. VS,Fishbone, I+O VS, Fishbone, I+O Laboratory Tests 11/24/18 15:24 Red Blood Count 3.65 L, Mean Corpuscular Volume 91.0, Mean Corpuscular Hemoglobin 28.5, Mean Corpuscular Hemoglobin Concent 31.3 L, Red Cell Distribution Width 16.9 H, Calcium Level 9.3 Vital Signs Date Time Temp Pulse Resp B/P (MAP) Pulse Ox O2 Delivery O2 Flow Rate FiO2 11/25/18 08:33 76 145/87 11/25/18 06:00 99.2 18 98 11/23/18 17:19 Room Air I&O- Last 24 Hours up to 6 AM 11/25/18 06:00 Intake Total 3670 ml Balance 3670 ml BRENNA JAIN MD Nov 25, 2018 12:27
[2018-11-25 13:24] VITALS: BP 128/89
[2018-11-25] MEDS: LevoFLOXacin IV 250 MG in IV 1 EA IV SCH (20:34)
[2018-11-25] MEDS: LACTOBACILLUS ACIDOPHILUS CAP (BACID) PO SCH (20:34)
[2018-11-25] MEDS: MONTELUKAST 10 MG TAB PO SCH (20:35)
[2018-11-25] MEDS: CYCLOBENZAPRINE 10 MG TAB PO SCH (20:35)
[2018-11-25] MEDS: PRAZOSIN 1 MG CAP PO SCH (20:35)
[2018-11-25] MEDS: LEVEMIR (INSULIN DETEMIR) 1 UNITS/0.01ML SC SCH (21:22)
[2018-11-25 21:34] VITALS: BP 156/100
[2018-11-26] MEDS: metroNIDAZOLE 500 MG in IV 1 EA IV SCH ×2 (01:48→09:33)
[2018-11-26] MEDS: ONDANSETRON 4MG/2ML VIAL (J2405) IV SCH ×2 (05:14→12:00)
[2018-11-26] MEDS: LEVOTHYROXINE 25MCG TABLET (0.025MG) PO SCH (05:14)
[2018-11-26] MEDS: HEPARIN SOD (PORCINE) 5000 UNITS/ML VIAL SQ SCH (05:14)
[2018-11-26 06:24] VITALS: BP 117/75
[2018-11-26] MEDS: tiZANidine 4 MG TAB PO SCH (08:11)
[2018-11-26] MEDS: TOPIRAMATE (TopAMAX) 25 MG TAB PO SCH (08:11)
[2018-11-26] MEDS: CETIRIZINE (ZyrTEC) 10 MG TAB PO SCH (08:11)
[2018-11-26] MEDS: PANTOPRAZOLE 40MG TAB (PROTONIX) PO SCH (08:11)
[2018-11-26] MEDS: GABAPENTIN 300 MG CAP PO SCH (08:11)
[2018-11-26 08:12] VITALS: BP 117/75
[2018-11-26] MEDS: amLODIPine 10 MG TAB PO SCH (08:12)
[2018-11-26] MEDS: LEVEMIR (INSULIN DETEMIR) 1 UNITS/0.01ML SC SCH (08:12)
[2018-11-26] MEDS: VITAMIN D 1,000 INTERNATIONAL UNITS TABLET PO SCH (08:12)
[2018-11-26] MEDS: busPIRone 10 MG TAB PO SCH (08:12)
[2018-11-26] MEDS: VENLAFAXINE **XR** 75MG CAPSULE PO SCH (08:12)
[2018-11-26] MEDS: HumaLOG INSULIN (NovoLOG) PER UNIT SC SCH ×2 (08:12→12:01)
[2018-11-26] MEDS: ACETAMINOPHEN TAB 650MG DOSE (2X325MG) PO PRN (09:33)
[2018-11-26] MEDS ORDERED: FLAG500T PO (10:31)
[2018-11-26] MEDS ORDERED: LEVA1TAB2 PO (10:31)
--- NOTE | 2018-12-15 12:57 | DS.PDOC ---
Discharge Summary General Date of Admission Nov 23, 2018 at 14:15 Date of Discharge November 26, 2018 Primary Care Physician: ADALBERTO ANGELES DO Discharge Summary PROCEDURES PERFORMED DURING STAY: [None]. ADMITTING DIAGNOSES: 1. [Acute entertcolitis]. DISCHARGE DIAGNOSES: 1. [Acute enterocolitis resolved, alpha-1 antitrypsin deficiency, COPD, CKD II, gastroesophageal reflux disease, fibromyalgia, dyslipidemia, hypothyroidism, migraine headache syndrome, mmq-sxlhyjw-oxlclaibc diabetes mellitus, obstructive sleep apnea with use of continuous positive airway pressure, posttraumatic stress disorder, depression with anxiety features, morbid obesity]. COMPLICATIONS/CHIEF COMPLAINT: Dehydration Renal Failure. HISTORY OF PRESENT ILLNESS/HOSPITAL COURSE: [This is a 48-year-old female who noted onset of severe diarrhea that woke her from sleep on Friday. It was accompanied by fever up to 101, nausea and body aches. She had significant abdominal pain, cramping and headaches. She had overall fatigue. She stated that her stools were yellow and that she had them every 30-45 minutes. There was no blood with her stools. She tried to relieve them with Imodium with no effect. Patient initially did not know of any exposures. However, we did note that she was on antibiotics about one month prior to admission. She also noted that in the day or 2 prior to onset of diarrhea she had an egg salad sandwich from a gas [employer] and she also had food from [employer]. The patient was admitted to the medical floor. She was noted to have acute kidney injury likely due to prerenal azotemia from dehydration. She already had chronic kidney disease. She was started on empiric antibiotics and IV fluids. Stool studies were negative for C. diff and other organisms. The patient improved with decreasing stools and improving oral intake. She was able to be transitioned to oral antibiotics and be discharged to home. Etiology was suspected to be food poisoning. ]. DISCHARGE MEDICATIONS: Please see below. ALLERGIES: Please see below. PHYSICAL EXAMINATION ON DISCHARGE: HENT: No adenopathy or thyromegaly, no scleral icterus, oral mucosa is moist, neck is supple. Cardiovascular: Regular rate and rhythm with a normal S1 and S2 Respiratory: Clear to auscultation, good air movement. Abdomen: Soft, moderate central obesity, no focal tenderness to palpation, bowel tones are present. Extremities: No peripheral edema or lesions, pedal pulses are palpable. Neuro exam: No focal neuromotor or sensory deficit LABORATORY DATA: Please see below. IMAGING: PROGNOSIS: ACTIVITY: [As tolerated]. DIET: [Carbohydrate consistent] DISCHARGE PLAN: [Ms. Vail was discharged to home on oral antibiotics. She is to follow up with her PCP Dr. Angeles in 1 week. She had been cautioned about suspect foods.] DISPOSITION: Home, Self-Care. DISCHARGE CONDITION: [Stable]. TIME SPENT ON DISCHARGE: Greater than [40] minutes. Discharge Medications Scheduled Amlodipine Besylate (Amlodipine Besylate) 10 Mg Tablet, 10 MG PO DAILY, (Reported) Buspirone HCl (Buspirone HCl) 30 Mg Tablet, 30 MG PO BID, (Reported) Cetirizine HCl (Cetirizine HCl) 10 Mg Tab, 10 MG PO DAILY, (Reported) Cholecalciferol (Vitamin D3) (Vitamin D3) 1,000 Unit Tab, 1,000 UNIT PO DAILY, (Reported) Cyclobenzaprine HCl (Cyclobenzaprine HCl) 10 Mg Tablet, 10 MG PO QHS, (Reported) Dulaglutide (Trulicity) 0.75 Mg/0.5 Ml Pen.injctr, 0.75 MG SC QWEEK, (Reported) TUESDAYS Gabapentin (Gabapentin) 600 Mg Tablet, 600 MG PO TID, (Reported) Insulin Glargine,Hum.rec.anlog (Basaglar Kwikpen U-100) 100 Unit/1 Ml Insuln.pen, 70 UNIT SC BID, (Reported) Insulin Human Regular (Humulin R) 1 Units/0.01 Ml Soln, 1 DOSE SC ACHS, (Reported) PER SLIDING SCALE Lactobacillus Combo No.10 (Probiotic) 1 Each Capsule, 1 CAP PO QHS, (Reported) Levofloxacin (Levaquin) 500 Mg Tablet, 1 TAB PO DAILY Levothyroxine Sodium (Synthroid) 25 Mcg Tab, 25 MCG PO DAILY, (Reported) Lisinopril (Lisinopril) 10 Mg Tab, 10 MG PO DAILY, (Reported) Metronidazole (Flagyl) 500 Mg Tablet, 500 MG PO TID FOR 10 DAYS Montelukast Sodium (Montelukast Sodium) 10 Mg Tablet, 10 MG PO QHS, (Reported) Pantoprazole Sodium (Protonix) 40 Mg Tab, 40 MG PO BID, (Reported) Prazosin Hcl (Prazosin HCl) 1 Mg Capsule, 3 MG PO QHS, (Reported) Tizanidine HCl (Tizanidine HCl) 4 Mg Tab, 4 MG PO TID, (Reported) Topiramate (Topiramate) 50 Mg Tab, 50 MG PO BID, (Reported) Venlafaxine HCl (Venlafaxine HCl ER) 150 Mg Tab.er.24, 150 MG PO DAILY, (Reported) Scheduled PRN Albuterol Sulfate (Ventolin Hfa) 108 Mcg/Act Aer, 2 PUFFS INH Q4H PRN for SHORTNESS OF BREATH, (Reported) Docusate Sodium (Colace) 100 Mg Cap, 100 MG PO DAILY PRN for CONSTIPATION, (Reported) Ibuprofen (Ibuprofen) 200 Mg Tablet, 400 MG PO Q8H PRN for PAIN, (Reported) Ondansetron HCl (Zofran) 4 Mg Tablet, 4 MG PO Q8H PRN for NAUSEA OR VOMITING, (Reported) Polyethylene Glycol 3350 (Polyethylene Glycol 3350) 510 Gm Powder, 17 GRAM PO DAILY PRN for CONSTIPATION, (Reported) Polyvinyl Alcohol (Artificial Tears) 1.4 % Debora, 1 DROP OU BID PRN for DRY EYES, (Reported) Sumatriptan Succinate (Sumatriptan Succinate) 50 Mg Tab, 50 MG PO BID PRN for MIGRAINE, (Reported) Triamcinolone Acetonide (Triamcinolone Acetonide) 0.1 % Lot, 1 DOSE EXT BID PRN for RASH, (Reported) USES ON ELBOWS AND FINGERS Allergies Coded Allergies: meclizine (Verified Allergy, Severe, shock, 11/05/18) prednisone (Verified Allergy, Intermediate, hives, 11/05/18) PT 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
== END 2018-11-26 12:40 | disposition home or self-care (01) | DRG 249 ==
LOC: M ED 11:08 → M ED INP 14:15 → M MS5PR 17:35
PROVIDERS: ADMIT Internal Medicine; ATTEND Internal Medicine
DX: K52.9 Noninfective gastroenteritis and colitis, unspecified (principal); N17.9 Acute kidney failure, unspecified; E11.65 Type 2 diabetes mellitus with hyperglycemia; E66.01 Morbid (severe) obesity due to excess calories; I48.91 Unspecified atrial fibrillation; E86.0 Dehydration; Z79.4 Long term (current) use of insulin; Z79.899 Other long term (current) drug therapy; Z88.8 Allergy status to other drugs, medicaments and biological substances; J44.9 Chronic obstructive pulmonary disease, unspecified; K21.9 Gastro-esophageal reflux disease without esophagitis; M79.7 Fibromyalgia; E03.9 Hypothyroidism, unspecified; G43.909 Migraine, unspecified, not intractable, without status migrainosus; G47.33 Obstructive sleep apnea (adult) (pediatric); F32.9 Major depressive disorder, single episode, unspecified; F41.9 Anxiety disorder, unspecified; F43.10 Post-traumatic stress disorder, unspecified; Z68.34 Body mass index [BMI] 34.0-34.9, adult

== ENCOUNTER 2018-12-18 12:28 | Observation (INO) | payer OTHER ==
[~2018-12-18] VITALS: Ht 162.6 cm; Wt 91.7 kg
[~2018-12-18 12:28] MED LIST changes: +AZIT500T2 PO; -AZIT500T5 PO; +CYCL10TA PO; +FLAG500T PO; +GABA600T4 PO; +MONT10TA2 PO; +NEUR100C PO; +TRAZ-163 PO; -TRAZ-257 PO
[2018-12-18 13:25] LABS: VENOUS BASE EXCESS -4.8 (-2.0-2.0); VENOUS HCO3 20.4 MEQ/L (23.0-27.0); VENOUS O2 SATURATION 75.3 % (60.0-80.0); VENOUS PARTIAL PRESSURE CO2 38.5 mmHg (38.0-50.0); VENOUS PARTIAL PRESSURE O2 40.7 mmHg (30.0-50.0); VENOUS PH 7.342 UNITS (7.330-7.430); VENOUS TOTAL CO2 21.6 MEQ/L (24.0-28.0)
[2018-12-18 13:27] LABS: BASO # 0.1 10^3/uL (0.0-0.2); BASO % 1.1 % (0.0-1.0); EOS # 0.3 10^3/uL (0.0-0.5); EOS % 3.8 % (0.0-3.0); HEMATOCRIT 37.9 % (36.0-47.0); HEMOGLOBIN 11.9 g/dl (12.0-15.5); LYMPH # 2.4 10^3/uL (1.5-5.0); MEAN CORPUSCULAR HEMOGLOBIN 28.5 pg (27.0-33.0); MEAN CORPUSCULAR HGB CONC 31.4 g/dl (32.0-36.5); MEAN CORPUSCULAR VOLUME 90.9 fl (80.0-96.0); MONO # 0.6 10^3/uL (0.0-0.8); MONO % 7.8 % (0.0-5.0); NEUTROPHILS # 4.8 10^3/uL (1.5-8.5); NEUTROPHILS % 57.7 % (36.0-66.0); PLATELET COUNT, AUTOMATED 292 10^3/uL (150-450); RED BLOOD COUNT 4.17 10^6/uL (4.00-5.40); WHITE BLOOD COUNT 8.2 10^3/uL (4.0-10.0)
--- NOTE | 2018-12-18 13:47 | REP ---
CHEST, SINGLE VIEW: There is no evidence of acute infiltrate. No pleural effusion is seen. The heart is normal in size. The mediastinal silhouette is unremarkable. The visualized osseous structures are intact. IMPRESSION: No acute pulmonary disease. Electronically Signed by Emir Bangura MD 12/21/2018 02:55 P
[2018-12-18 14:00] LABS: ALBUMIN 3.9 GM/DL (3.2-5.2); ALT/SGPT 69 U/L (12-78); BILIRUBIN,DIRECT < 0.1 MG/DL (0.0-0.2); BILIRUBIN,TOTAL 0.2 MG/DL (0.2-1.0); BLOOD UREA NITROGEN 15 MG/DL (7-18); CALCIUM LEVEL 10.1 MG/DL (8.5-10.1); CARBON DIOXIDE LEVEL 21 MEQ/L (21-32); CHLORIDE LEVEL 105 MEQ/L (98-107); CK-MB VALUE MASS < 1.0 NG/ML (<3.6); CPK CREATINE PHOSPHOKINASE 73 U/L (26-192); CREATININE FOR GFR 1.16 MG/DL (0.55-1.30); GLOMERULAR FILTRATION RATE 53.5 (>58); GLUCOSE, FASTING 392 MG/DL (70-100); MB/CK RELATIVE INDEX 1.37 (< OR =4); NT-PRO BNP 23 PG/ML (<125); POTASSIUM SERUM 4.2 MEQ/L (3.5-5.1); SODIUM LEVEL 138 MEQ/L (136-145); THYROID STIMULATING HORMONE 0.634 uIU/ML (0.358-3.740); THYROXINE (T4) 10.6 UG/DL (4.5-12.0); TOTAL PROTEIN 8.6 GM/DL (6.4-8.2); TROPONIN I < 0.02 NG/ML (< 0.10)
[2018-12-18] MEDS ORDERED: PRED5SOL10 PO (14:10)
[2018-12-18] MEDS ORDERED: GABA-843 PO (14:10)
[2018-12-18] MEDS ORDERED: IPRA0.00 NEB (14:10)
[2018-12-18] MEDS ORDERED: NS 2,750 ML in IV 1 EA IV ONE (14:15)
[2018-12-18] MEDS ORDERED: ISOVUE-370 76% 100ML VIAL (Q9967) As Ordered ONE (14:15)
[2018-12-18] MEDS ORDERED: IPRATROPIUM 0.5MG/ALBUTEROL 2.5MG INH SOL UD 3ML (DUONEB)(J7620) NEB ONE (15:15)
[2018-12-18 15:23] LABS: PROTHROMBIN TIME 12.9 SECONDS (11.8-14.0)
[2018-12-18 15:24] LABS: PARTIAL THROMBOPLASTIN TIME 24.2 SECONDS (25.0-38.4)
--- NOTE | 2018-12-18 16:14 | REP ---
Bilateral lower extremity Duplex Doppler venous ultrasound: Real time compression and duplex Doppler interrogation of the bilateral lower extremity deep venous system is performed. Bilaterally, the common femoral, superficial femoral and popliteal veins are fully compressible with transducer pressure and demonstrate normal spontaneous and phasic flow, without evidence of deep venous thrombosis. Impression: No evidence of deep venous thrombosis of the bilateral lower extremity femoral popliteal venous system. Electronically Signed by Emir Bangura MD 12/18/2018 04:05 P
[2018-12-18] MEDS ORDERED: POLYVINYL ALCOHOL OPHTH SOLN 15 ML(LIQUITEARS) OU PRN (17:30)
[2018-12-18] MEDS ORDERED: GLUCOSE 4 GM CHEW TABLET PO PRN (17:30)
[2018-12-18] MEDS ORDERED: ONDANSETRON 4 MG TAB (S0181) PO PRN (17:30)
[2018-12-18] MEDS ORDERED: GLUCAGON FOR INJ 1 MG VIAL (J1610) SC PRN (17:30)
[2018-12-18] MEDS ORDERED: DEXTROSE 50% 50 ML SYRINGE IV PRN (17:30)
[2018-12-18] MEDS ORDERED: DOCUSATE SODIUM 100 MG CAP PO PRN (17:30)
[2018-12-18] MEDS ORDERED: MIRALAX *UNIT DOSE* 17GM PACKET PO PRN (17:30)
--- NOTE | 2018-12-18 17:32 | REP ---
CT pulmonary angiogram: With IV contrast. History: Shortness of breath. Comparison studies: Comparison CT study October 11, 2018. Contrast dose: 75 mL of Isovue [address] technique: Helical scanning is acquired and overlapping 1.5 mm and contiguous 3 mm axial images are reformatted. In addition, maximum intensity projection and multiplanar re-formation images are generated in sagittal and coronal imaging projections. CT pulmonary angiographic findings: Preliminary digital granite countertop installer radiograph is unremarkable. There is good opacification in the pulmonary arterial tree. There is a solitary filling defects in the posterior basal segment pulmonary artery to the left lower lobe. This measures 8 mm in length and 1-2 mm in diameter. 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 It is visible in retrospect and is felt to be unchanged from the October 11, [address] pulmonary angiogram. 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 No other filling defect is seen in the pulmonary arterial tree. Thoracic aorta enhances homogeneously without evidence of aneurysm or dissection. No hilar or mediastinal mass or adenopathy is observed. Lung jara are clear. There are surgical clips in the right upper quadrant post cholecystectomy. The visualized upper abdominal structures are otherwise unremarkable. No bony destructive lesion is seen. There are granulomatous calcifications scattered in the lung jara. Impression: There is a solitary tiny chronic filling defect in the right lower lobe pulmonary artery, posterobasal segment branch, unchanged from October 11, 2018 prior study. No new pulmonary embolus is seen. Granulomatous calcifications. Otherwise no acute disease. Electronically Signed by Emil Booker MD 12/21/2018 11:22 A
[2018-12-18] MEDS: HumaLOG INSULIN (NovoLOG) PER UNIT SC SCH (18:25)
[2018-12-18] MEDS ORDERED: PRAZOSIN 1 MG CAP PO SCH ×2 (19:00→21:00)
[2018-12-18] MEDS: ENOXAPARIN 100MG/1ML SYRINGE (J1650) SC SCH (19:25)
[2018-12-18 20:04] VITALS: BP 160/98
[2018-12-18] MEDS ORDERED: CYCLOBENZAPRINE 10 MG TAB PO SCH (21:00)
[2018-12-18] MEDS ORDERED: HumaLOG INSULIN (NovoLOG) PER UNIT SC SCH (21:00)
[2018-12-18] MEDS ORDERED: MONTELUKAST 10 MG TAB PO SCH (21:00)
--- NOTE | 2018-12-18 21:00 | HPE ---
DATE OF ADMISSION: 12/18/2018 PRIMARY CARE PROVIDER: Oswaldo Dave D.O. ATTENDING PHYSICIAN: Sara escalera. CHIEF COMPLAINT: Pulmonary embolism. HISTORY OF PRESENT ILLNESS: Hannah Vail is a 48-year-old with a history of asthma. She has been increasingly short of breath for 2 days. It came on suddenly yesterday. She was seen by her primary care provider yesterday and started on some prednisolone therapy for exacerbation of asthma. Today she became more short of breath. She came to the emergency room. There she had a CT angiogram, which per report by the emergency room provider shows the pulmonary embolism. She has no past history of pulmonary embolism (though per discussion with the emergency room physician, the radiologist reading the CT angiogram feels that there was a pulmonary embolism present on 10/11/[address] of the chest, thereby suggesting that this was recurrent, unprovoked pulmonary embolism). She has no recent air or extended travel, leg injury, dehydration, recent surgery, or prolonged immobilization. She was hospitalized 11/26/2018 for acute enterocolitis, but she has been back on her feet, active and working since then. PAST MEDICAL HISTORY: 1. Alpha-1 antitrypsin deficiency with chronic pulmonary disease. 2. Chronic anxiety and depression. 3. Hypertensive heart disease. 4. Type 2 diabetes. 5. Diabetic neuropathy. 6. History of posttraumatic stress disorder (PTSD). 7. Chronic low back pain. 8. Obstructive sleep apnea (WANDY), on continuous positive airway pressure (CPAP). 9. History of pancreatitis. 10. Cervical radiculopathy with electromyogram (EMG) October 2017. ALLERGIES: MECLIZINE caused anaphylaxis. METFORMIN, acute kidney injury. PREDNISONE has given her hives. SURGICAL HISTORY: 1. Cholecystectomy. 2. Appendectomy. 3. Tonsillectomy. 4. Three sections. 5. Colonoscopy. SOCIAL HISTORY: Quit smoking over 5 years ago. Rare alcohol use. . Unemployed. REVIEW OF SYSTEMS: No rectal bleeding, epistaxis, urinary bleeding, fevers, chills, night sweats, chest pain. MEDICATIONS: See summary list. PHYSICAL EXAMINATION: 157/67, pulse 100, respirations 18, 96% oxygen saturation on room air. GENERAL APPEARANCE: She is alert, conversant in no distress. Pupils equal and reactive to light. Tympanic membranes (TMs) and oropharynx benign. NECK: No masses. LUNGS: Clear. HEART: Regular rate and rhythm without murmur. ABDOMEN: Soft, nontender. No masses. EXTREMITIES: No swelling of her calves. No trauma to the legs. Good distal pulses. LABORATORY DATA: White count 8.2, hemoglobin 11.9, platelets 292. INR 1.0. Sodium 138, potassium 4.2, BUN 15, creatinine 1.1, glucose 392. Lactic acid is 5.5. IMPRESSION: 1. Pulmonary embolism, unprovoked, probably recurrent (see note concerning the CT angiogram from September 2018). She will be admitted to a progressive care unit (PCU) bed. Will start therapeutic-dose Lovenox, 1 mg/kg every 12 hours. Tomorrow she can be started on direct oral anticoagulant. With her history of lung disease, alpha-1 antitrypsin deficiency, and elevated lactate, I think she warrants inpatient care, at least overnight on telemetry. I will order intravenous (IV) fluids in the face of elevated lactate. Thrombophilia workup has been ordered. 2. Diabetes. Sliding-scale insulin with coverage until oral intake is assured. 3. Hypothyroidism. Continue current dose of levothyroxine 25 mcg daily. 4. Hypertension. Will continue her antihypertensives. IV fluids have been ordered. 5. History of depression/PTSD. Continue her current medications. 6. Diabetic neuropathy. Continue her gabapentin 300 mg three times a day.
[2018-12-18] MEDS: TOPIRAMATE (TopAMAX) 25 MG TAB PO SCH (21:58)
[2018-12-18] MEDS: GABAPENTIN 300 MG CAP PO SCH (21:58)
[2018-12-18] MEDS: busPIRone 10 MG TAB PO SCH (21:58)
[2018-12-18] MEDS: PANTOPRAZOLE 40MG TAB (PROTONIX) PO SCH (21:58)
[2018-12-18] MEDS: tiZANidine 4 MG TAB PO SCH (21:58)
[2018-12-18 23:59] VITALS: BP 146/87
[2018-12-19] VITALS (7 sets, daily range): BP systolic 123–163; BP diastolic 80–100; O2SAT 95–97
[2018-12-19] MEDS ORDERED: SUMAtriptan SUCCINATE 25 MG TAB PO PRN
[2018-12-19] MEDS: ENOXAPARIN 100MG/1ML SYRINGE (J1650) SC SCH (05:39)
[2018-12-19 05:57] LABS: HEMATOCRIT 32.3 % (36.0-47.0); MEAN CORPUSCULAR HEMOGLOBIN 28.2 pg (27.0-33.0); PLATELET COUNT, AUTOMATED 242 10^3/uL (150-450); RED BLOOD COUNT 3.55 10^6/uL (4.00-5.40); WHITE BLOOD COUNT 6.4 10^3/uL (4.0-10.0)
[2018-12-19] MEDS ORDERED: LEVOTHYROXINE 25MCG TABLET (0.025MG) PO SCH (06:00)
[2018-12-19 06:19] LABS: BLOOD UREA NITROGEN 7 MG/DL (7-18); CALCIUM LEVEL 9.4 MG/DL (8.5-10.1); CARBON DIOXIDE LEVEL 23 MEQ/L (21-32); CHLORIDE LEVEL 112 MEQ/L (98-107); CREATININE FOR GFR 0.74 MG/DL (0.55-1.30); GLOMERULAR FILTRATION RATE > 60.0 (>58); GLUCOSE, FASTING 255 MG/DL (70-100); POTASSIUM SERUM 3.5 MEQ/L (3.5-5.1); SODIUM LEVEL 143 MEQ/L (136-145)
[2018-12-19 08:16] LABS: NT-PRO BNP 75 PG/ML (<125); TROPONIN I < 0.02 NG/ML (< 0.10)
[2018-12-19] MEDS: busPIRone 10 MG TAB PO SCH (08:20)
[2018-12-19] MEDS: TOPIRAMATE (TopAMAX) 25 MG TAB PO SCH (08:20)
[2018-12-19] MEDS: HumaLOG INSULIN (NovoLOG) PER UNIT SC SCH ×2 (08:20→12:43)
[2018-12-19] MEDS: GABAPENTIN 300 MG CAP PO SCH (08:21)
[2018-12-19] MEDS: PANTOPRAZOLE 40MG TAB (PROTONIX) PO SCH (08:21)
[2018-12-19] MEDS: tiZANidine 4 MG TAB PO SCH (08:22)
[2018-12-19] MEDS ORDERED: LISINOPRIL 10 MG TAB PO SCH (09:00)
[2018-12-19] MEDS ORDERED: CETIRIZINE (ZyrTEC) 10 MG TAB PO SCH (09:00)
[2018-12-19] MEDS ORDERED: amLODIPine 10 MG TAB PO SCH (09:00)
[2018-12-19] MEDS ORDERED: VENLAFAXINE **XR** 75MG CAPSULE PO SCH (09:00)
[2018-12-19] MEDS ORDERED: ELIQ5TAB PO (09:45)
[2018-12-19] MEDS ORDERED: INFLUENZA QUADRIVALENT PF VACCINE 0.5ML SYRINGE (90686) IM ONE (12:30)
--- NOTE | 2018-12-19 14:45 | DS.PDOC ---
Discharge Summary General Date of Admission Dec 18, 2018 at 12:29 Date of Discharge 12/19/18 Attending Physician: HERBIE STOCKTON MD Discharge Summary PROCEDURES PERFORMED DURING STAY: None. ADMITTING DIAGNOSES: 1. Pulmonary embolism DISCHARGE DIAGNOSES: 1. Pulmonary embolism COMPLICATIONS/CHIEF COMPLAINT: Pulmonary Embolism. HISTORY OF PRESENT ILLNESS: Patient is a 48-year-old female presented to [facility] emergency department with complaint of worsening sh ortness of breath. Patient stated that for the past few days she had developed gross of breath and was recently seen by her primary care provider and started on prednisone for a suspected asthma exacerbation. She stated that her source of breath worsened and prompted her to come to the emergency department. In the emergency department the patient received a CT angiogram which demonstrated a solitary tiny chronic filling defect in the right lower lobe pulmonary artery, posterior basal segment branch that was unchanged from 10/11/2018. There was no new pulmonary embolus seen. The time the patient denies any chest pain or syncopal episodes. She denied any pleuritic pain as well. Patient denied any history of blood clots or deep vein thrombosis. She denied a history of long or extended travel or immobilization. Patient denied smoking or use of estrogen containing medications. In the emergency department, the patient was vitally stable with a temperature of 96.6, pulse 83, respiratory rate 16, blood pressure of 123/80, and pulse oximetry 99-100% on room air. . She distally received bilateral lower extremity duplex Doppler venous ultrasound demonstrated no evidence of deep venous thrombosis. Patient was subsequently admitted to hospitalist service for further evaluation and management On admission to hospital service. Patient was started on Lovenox 90 mg every 12 hours subcutaneously. She had remained hemodynamically stable since her admission. On review, it appeared the patient's pulmonary embolism was likely old and possibly not related to her original shortness of breath. Patient had received a partial hypercoagulable workup including anticardiolipin antibodies and factor II mutation. The patient was started on Lovenox before other hypercoagulable workup could be ordered. Patient will likely need follow-up with primary care and hematology for further elucidation as to the cause of her pulmonary embolism. The patient's pulmonary embolism severity index score was 56, indicating a class I very low risk approximately 0-1.6% 30 day mortality. Patient was ambulated and demonstrated no desaturations of oxygenation on 6 minute walk test. Patient was subsequently discharged with Eliquis for anticoagulation. She was instructed to follow-up with pulmonary medicine and hematology. Patient is instructed to follow-up with principal scientist as well. Given the nature of patient's pulmonary embolism she may not need lifelong anticoagulation. She was started on Eliquis at discharge and management can be deferred to her primary care provider and pulmonary medicine. DISCHARGE MEDICATIONS: Please see below. ALLERGIES: Please see below. PHYSICAL EXAMINATION ON DISCHARGE: VITAL SIGNS: Please see below. GENERAL: Awake Alert, oriented, appears in no acute distress, lying comfortably in bed eating breakfast HEENT: Atraumatic, normocephalic. Eyes nonicteric. Trachea is midline. Mucous membranes are pink and moist.. No conjunctival pallor NECK:. No palpable cervical, axillary or supraclavicular lymphadenopathy CARDIOVASCULAR EXAMINATION: Normal 1, S2, regular rate and rhythm. No clicks, rubs or murmurs RESPIRATORY EXAMINATION: Diminished breath sounds bilaterally. Poor patient effort. No wheezes, rhonchi or rales. , Slightly prolonged expiratory phase. No accessory muscle use. Symmetric chest rise and expansion. No dullness to percussion. No decreased tactile fremitus. No clubbing or cyanosis of the nailbeds ABDOMINAL EXAMINATION:. Obese Soft, nondistended, nontender to palpation in all 4 quadrants. No rebound tenderness or guarding EXTREMITIES:. No edema. Full and equal pulses in bilateral upper and lower extremities SKIN:. No rashes or areas of erythema NEUROLOGICAL EXAMINATION:. No focal neurological deficits PSYCHIATRIC EXAMINATION:. Mood and affect appear appropriate LABORATORY DATA: Please see below. IMAGING: CHEST, SINGLE VIEW: There is no evidence of acute infiltrate. No pleural effusion is seen. The heart is normal in size. The mediastinal silhouette is unremarkable. The visualized osseous structures are intact. IMPRESSION: No acute pulmonary disease. Unreviewed CT pulmonary angiogram: With IV contrast. History: Shortness of breath. Comparison studies: Comparison CT study October 11, 2018. Contrast dose: 75 mL of Isovue [address] technique: Helical scanning is acquired and overlapping 1.5 mm and contiguous 3 mm axial images are reformatted. In addition, maximum intensity projection and multiplanar re-formation images are generated in sagittal and coronal imaging projections. CT pulmonary angiographic findings: Preliminary digital legal practice manager radiograph is unremarkable. There is good opacification in the pulmonary arterial tree. There is a solitary filling defects in the posterior basal segment pulmonary artery to the left lower lobe. This measures 8 mm in length and 1-2 mm in diameter. 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 It is visible in retrospect and is felt to be unchanged from the October 11, [address] pulmonary angiogram. 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 No other filling defect is seen in the pulmonary arterial tree. Thoracic aorta enhances homogeneously without evidence of aneurysm or dissection. No hilar or mediastinal mass or adenopathy is observed. Lung jara are clear. There are surgical clips in the right upper quadrant post cholecystectomy. The visualized upper abdominal structures are otherwise unremarkable. No bony destructive lesion is seen. There are granulomatous calcifications scattered in the lung jara. Impression: There is a solitary tiny chronic filling defect in the right lower lobe pulmonary artery, posterobasal segment branch, unchanged from October 11, 2018 prior study. No new pulmonary embolus is seen. Granulomatous calcifications. Otherwise no acute disease. Bilateral lower extremity Duplex Doppler venous ultrasound: Real time compression and duplex Doppler interrogation of the bilateral lower extremity deep venous system is performed. Bilaterally, the common femoral, superficial femoral and popliteal veins are fully compressible with transducer pressure and demonstrate normal spontaneous and phasic flow, without evidence of deep venous thrombosis. Impression: No evidence of deep venous thrombosis of the bilateral lower extremity femoral popliteal venous system. Electronically Signed by Emir Bangura MD 12/18/2018 04:05 P PROGNOSIS: Overall good ACTIVITY: As tolerated. DIET: As tolerated DISCHARGE PLAN:. Patient discharged home with follow-up to her primary care physician as well as pulmonary medicine and hematology. Patient was instructed to take Eliquis 5 mg twice a day. Patient was given 30 day sample of Eliquis. P atient was counseled on weight loss. DISPOSITION: Home, Self-Care. DISCHARGE CONDITION: Stable. I saw and evaluated the patient. I agree with the findings and plan of care as documented in the documenters note. I spent 45 minutes coordinating this patient's discharge. Vital Signs/I&Os Vital Signs Date Time Temp Pulse Resp B/P (MAP) Pulse Ox O2 Delivery O2 Flow Rate FiO2 12/19/18 12:00 96.8 98 16 163/96 (118) 98 12/19/18 04:00 Room Air I&O- Last 24 Hours up to 6 AM 12/19/18 06:00 Intake Total 3230 ml Output Total 850 ml Balance 2380 ml Laboratory Data Labs 24H Laboratory Tests 2 12/18/18 17:11: 12/18/18 17:44: Lactic Acid Followup at 4 Hours 2.6*H 12/18/18 18:15: Bedside Glucose (Misc Panel) 267H 12/18/18 21:56: Bedside Glucose (Misc Panel) 198H 12/19/18 05:23: Nucleated Red Blood Cells % (auto) 0.0, Anion Gap 8, Glomerular Filtration Rate > 60.0, Blood Urea Nitrogen 7#, Creatinine 0.74, Sodium Level 143, Potassium Level 3.5, Chloride Level 112H, Carbon Dioxide Level 23, Calcium Level 9.4 12/19/18 07:36: Lactic Acid Level 1.3, Troponin I < 0.02, SZ-Eun-H-Type Natriuretic Peptide 75 12/19/18 11:03: Bedside Glucose (Misc Panel) 316H CBC/BMP Laboratory Tests 12/19/18 05:23 Red Blood Count 3.55 L, Mean Corpuscular Volume 91.0, Mean Corpuscular Hemoglobin 28.2, Mean Corpuscular Hemoglobin Concent 31.0 L, Red Cell Distribution Width 16.9 H, Calcium Level 9.4 FSBS Laboratory Tests Test 12/18/18 18:15 12/18/18 21:56 12/19/18 11:03 Range/Units Bedside Glucose (Misc Panel) 267 198 316 70-105 MG/DL Microbiology Microbiology 12/18/18 Blood Culture, Received Pending 12/18/18 Blood Culture, Received Pending Discharge Medications Scheduled Amlodipine Besylate (Amlodipine Besylate) 10 Mg Tablet, 10 MG PO DAILY, (Reported) Apixaban (Eliquis) 5 Mg Tablet, 5 MG PO BID for Pulmonary Embolism Buspirone HCl (Buspirone HCl) 30 Mg Tablet, 30 MG PO BID, (Reported) Cetirizine HCl (Cetirizine HCl) 10 Mg Tab, 10 MG PO DAILY, (Reported) Cholecalciferol (Vitamin D3) (Vitamin D3) 1,000 Unit Tab, 1,000 UNIT PO DAILY, (Reported) Cyclobenzaprine HCl (Cyclobenzaprine HCl) 10 Mg Tablet, 10 MG PO QHS, (Reported) Dulaglutide (Trulicity) 0.75 Mg/0.5 Ml Pen.injctr, 0.75 MG SC QWEEK, (Reported) TUESDAYS Gabapentin (Gabapentin) 300 Mg Capsule, 300 MG PO TID, (Reported) Insulin Glargine,Hum.rec.anlog (Basaglar Kwikpen U-100) 100 Unit/1 Ml Insuln.pen, 70 UNIT SC BID, (Reported) Insulin Human Regular (Humulin R) 1 Units/0.01 Ml Soln, 1 DOSE SC ACHS, (Reported) PER SLIDING SCALE Levothyroxine Sodium (Synthroid) 25 Mcg Tab, 25 MCG PO DAILY, (Reported) Lisinopril (Lisinopril) 10 Mg Tab, 10 MG PO DAILY, (Reported) Montelukast Sodium (Montelukast Sodium) 10 Mg Tablet, 10 MG PO QHS, (Reported) Pantoprazole Sodium (Protonix) 40 Mg Tab, 40 MG PO BID, (Reported) Prazosin Hcl (Prazosin HCl) 1 Mg Capsule, 3 MG PO QHS, (Reported) Prednisolone (Prednisolone) 15 Mg/5 Ml Solution, 20 ML PO DAILY, (Reported) FOR 5 DAYS, FILLED 12/17 Tizanidine HCl (Tizanidine HCl) 4 Mg Tab, 4 MG PO TID, (Reported) Topiramate (Topiramate) 50 Mg Tab, 50 MG PO BID, (Reported) Venlafaxine HCl (Venlafaxine HCl ER) 150 Mg Tab.er.24, 150 MG PO DAILY, (Reported) Scheduled PRN Albuterol Sulfate (Ventolin Hfa) 108 Mcg/Act Aer, 2 PUFFS INH Q4H PRN for SHORTNESS OF BREATH, (Reported) Docusate Sodium (Colace) 100 Mg Cap, 100 MG PO DAILY PRN for CONSTIPATION, (Reported) Ibuprofen (Ibuprofen) 200 Mg Tablet, 400 MG PO Q8H PRN for PAIN, (Reported) Ipratropium/Albuterol Sulfate (Iprat-Albut 0.5-3(2.5) mg/3 ml) 3 Ml Ampul.neb, 1 VIAL NEB Q4H PRN for SHORTNESS OF BREATH, (Reported) Ondansetron HCl (Zofran) 4 Mg Tablet, 4 MG PO Q8H PRN for NAUSEA OR VOMITING, (Reported) Polyethylene Glycol 3350 (Polyethylene Glycol 3350) 510 Gm Powder, 17 GRAM PO DAILY PRN for CONSTIPATION, (Reported) Polyvinyl Alcohol (Artificial Tears) 1.4 % Debora, 1 DROP OU BID PRN for DRY EYES, (Reported) Sumatriptan Succinate (Sumatriptan Succinate) 50 Mg Tab, 50 MG PO BID PRN for MIGRAINE, (Reported) Triamcinolone Acetonide (Triamcinolone Acetonide) 0.1 % Lot, 1 DOSE EXT BID PRN for RASH, (Reported) USES ON ELBOWS AND FINGERS Allergies Coded Allergies: meclizine (Verified Allergy, Severe, shock, 11/05/18) prednisone (Verified Allergy, Intermediate, hives, 11/05/18) PT STATES ONLY 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
--- NOTE | 2018-12-20 08:01 | ECGEPIP ---
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
[2018-12-22 09:05] LABS: DRVV SCREEN 44.3 SEC; PTT LUPUS TYPE ANTICOAG SCREEN 1.1 (0-1.2)
== END 2018-12-19 13:45 | disposition home or self-care (01) ==
LOC: M ED 12:28 → M ED INP 12:29 → M PCU 20:04
PROVIDERS: ADMIT Family Medicine; ATTEND Internal Medicine
DX: I26.99 Other pulmonary embolism without acute cor pulmonale (principal); J45.909 Unspecified asthma, uncomplicated; I10 Essential (primary) hypertension; E03.9 Hypothyroidism, unspecified; E88.01 Alpha-1-antitrypsin deficiency; E11.40 Type 2 diabetes mellitus with diabetic neuropathy, unspecified; F43.10 Post-traumatic stress disorder, unspecified; F32.9 Major depressive disorder, single episode, unspecified; F41.9 Anxiety disorder, unspecified; M54.5 Low back pain; G47.33 Obstructive sleep apnea (adult) (pediatric); Z79.4 Long term (current) use of insulin; Z79.51 Long term (current) use of inhaled steroids; Z79.899 Other long term (current) drug therapy; Z88.8 Allergy status to other drugs, medicaments and biological substances; Z87.891 Personal history of nicotine dependence
CPT/HCPCS: 36415; 71045; 71275; 80048; 80076; 81240; 82550; 82553; 82803; 83605; 83880; 84311; 84436; 84443; 85025; 85027; 85300; 85301; 85303; 85305; 85610; 85730; 86147; 87040; 90471; 90686; 93005; 93041; 93970; 94640; 96360; 96361; 96372; 99285; J1650; Q9967

== ENCOUNTER 2018-12-27 16:47 | Emergency (ER) | payer OTHER ==
[~2018-12-27] VITALS: Ht 162.6 cm; Wt 91.5 kg
[~2018-12-27 16:47] MED LIST changes: -AZIT500T2 PO; +AZIT500T5 PO; +ELIQ5TAB PO; +IPRA0.00 NEB
[2018-12-27 18:08] LABS: ABG BASE EXCESS -3.2 (-2.0-2.0); ABG HCO3 21.5 MEQ/L (22.0-26.0); ABG O2 SATURATION 97.5 % (95.0-99.0); ABG PARTIAL PRESSURE CO2 37.6 mmHg (35.0-45.0); ABG PARTIAL PRESSURE O2 98.4 mmHg (75.0-100.0); ABG STANDARD HCO3 21.8 MEQ/L (22.0-26.0); ABG TOTAL CO2 22.7 MEQ/L (22.0-29.0); ABG pH (ARTERIAL) 7.376 UNITS (7.350-7.450)
[2018-12-27 18:28] LABS: BASO # 0.1 10^3/uL (0.0-0.2); BASO % 0.7 % (0.0-1.0); EOS # 0.3 10^3/uL (0.0-0.5); EOS % 3.1 % (0.0-3.0); HEMOGLOBIN 11.5 g/dl (12.0-15.5); LYMPH # 3.9 10^3/uL (1.5-5.0); LYMPH % 37.3 % (24.0-44.0); MEAN CORPUSCULAR HEMOGLOBIN 29.1 pg (27.0-33.0); MEAN CORPUSCULAR HGB CONC 31.9 g/dl (32.0-36.5); MEAN CORPUSCULAR VOLUME 91.1 fl (80.0-96.0); MONO # 0.7 10^3/uL (0.0-0.8); MONO % 7.2 % (0.0-5.0); NEUTROPHILS # 5.3 10^3/uL (1.5-8.5); NEUTROPHILS % 51.3 % (36.0-66.0); PLATELET COUNT, AUTOMATED 286 10^3/uL (150-450); RED BLOOD COUNT 3.95 10^6/uL (4.00-5.40); WHITE BLOOD COUNT 10.3 10^3/uL (4.0-10.0)
[2018-12-27 18:53] LABS: BLOOD UREA NITROGEN 23 MG/DL (7-18); CALCIUM LEVEL 8.8 MG/DL (8.5-10.1); CARBON DIOXIDE LEVEL 24 MEQ/L (21-32); CHLORIDE LEVEL 104 MEQ/L (98-107); CREATININE FOR GFR 1.03 MG/DL (0.55-1.30); GLOMERULAR FILTRATION RATE > 60.0 (>58); GLUCOSE, FASTING 347 MG/DL (70-100); POTASSIUM SERUM 3.9 MEQ/L (3.5-5.1); SODIUM LEVEL 135 MEQ/L (136-145)
[2018-12-27 19:08] VITALS: BP 129/88
--- NOTE | 2018-12-27 23:44 | REP ---
Clinical: Shortness of breath . Comparison: 11/05/2018 . Technique: PA and lateral. Findings: The mediastinum and cardiac silhouette are normal. The lung jara are clear and without acute consolidation, effusion, or pneumothorax. The skeletal structures are intact and normal. Impression: 1. No acute cardiopulmonary process. Electronically Signed by Isidoro Jose MD 12/27/2018 11:36 P
== END 2018-12-27 19:18 | disposition home or self-care (01) ==
LOC: M ED 16:47
DX: J44.9 Chronic obstructive pulmonary disease, unspecified (principal); R51 Headache; E78.00 Pure hypercholesterolemia, unspecified; E11.42 Type 2 diabetes mellitus with diabetic polyneuropathy; I11.0 Hypertensive heart disease with heart failure; F43.10 Post-traumatic stress disorder, unspecified; I50.9 Heart failure, unspecified; F32.9 Major depressive disorder, single episode, unspecified; G47.30 Sleep apnea, unspecified; I27.82 Chronic pulmonary embolism; E88.01 Alpha-1-antitrypsin deficiency; K21.9 Gastro-esophageal reflux disease without esophagitis; Z87.442 Personal history of urinary calculi; Z87.440 Personal history of urinary (tract) infections; E03.9 Hypothyroidism, unspecified; K76.9 Liver disease, unspecified; M79.7 Fibromyalgia; D64.9 Anemia, unspecified; F41.9 Anxiety disorder, unspecified; Z90.49 Acquired absence of other specified parts of digestive tract; Z88.8 Allergy status to other drugs, medicaments and biological substances; Z86.14 Personal history of Methicillin resistant Staphylococcus aureus infection; Z79.01 Long term (current) use of anticoagulants; Z79.4 Long term (current) use of insulin; Z79.899 Other long term (current) drug therapy

== ENCOUNTER 2019-01-08 17:05 | Emergency (ER) | payer OTHER ==
[~2019-01-08] VITALS: Ht 162.6 cm; Wt 93.2 kg
[2019-01-08] MEDS ORDERED: NORCO, ANEXSIA 5/325MG TABLET (HYDROcodone/ACETAMINOPHEN) PO ONE (19:30)
[2019-01-08 19:48] VITALS: BP 150/88
--- NOTE | 2019-01-08 21:41 | REP ---
RIGHT KNEE, FIVE VIEWS: FINDINGS: There is no evidence of an acute fracture, dislocation or intrinsic bone disease. IMPRESSION: No fracture or dislocation. Electronically Signed by Emir Bangura MD 01/09/2019 03:35 P
--- NOTE | 2019-01-08 21:44 | REP ---
RIGHT WRIST, FOUR VIEWS: There is no evidence of an acute fracture, dislocation or intrinsic bone disease. IMPRESSION: No fracture or dislocation. Electronically Signed by Emir Bangura MD 01/09/2019 03:35 P
--- NOTE | 2019-01-08 21:47 | REP ---
RIGHT ANKLE, FOUR VIEWS: There is no evidence of an acute fracture, dislocation or intrinsic bone disease. There is mild calcaneal spurring. IMPRESSION: No fracture or dislocation. Electronically Signed by Emir Bangura MD 01/09/2019 03:36 P
== END 2019-01-08 20:17 | disposition home or self-care (01) ==
LOC: M ED 17:05
DX: S93.401A Sprain of unspecified ligament of right ankle, initial encounter (principal); S89.91XA Unspecified injury of right lower leg, initial encounter; S60.211A Contusion of right wrist, initial encounter; W18.42XS Slipping, tripping and stumbling without falling due to stepping into hole or opening, sequela; Y92.009 Unspecified place in unspecified non-institutional (private) residence as the place of occurrence of the external cause; Y93.02 Activity, running; Y99.8 Other external cause status; E11.9 Type 2 diabetes mellitus without complications; I10 Essential (primary) hypertension; J45.909 Unspecified asthma, uncomplicated; J44.9 Chronic obstructive pulmonary disease, unspecified; Z79.899 Other long term (current) drug therapy; Z79.4 Long term (current) use of insulin; Z79.890 Hormone replacement therapy; Z88.8 Allergy status to other drugs, medicaments and biological substances

== ENCOUNTER 2019-02-04 17:12 | Emergency (ER) | payer OTHER ==
[~2019-02-04] VITALS: Ht 162.6 cm; Wt 92.3 kg
[2019-02-04] MEDS ORDERED: PRAZ1CAP PO (17:29)
[2019-02-04 18:15] LABS: BASO # 0.1 10^3/uL (0.0-0.2); BASO % 0.6 % (0.0-1.0); EOS # 0.2 10^3/uL (0.0-0.5); EOS % 1.1 % (0.0-3.0); HEMOGLOBIN 11.8 g/dl (12.0-15.5); LYMPH # 2.3 10^3/uL (1.5-5.0); LYMPH % 16.1 % (24.0-44.0); MEAN CORPUSCULAR HEMOGLOBIN 28.2 pg (27.0-33.0); MEAN CORPUSCULAR HGB CONC 30.3 g/dl (32.0-36.5); MEAN CORPUSCULAR VOLUME 93.3 fl (80.0-96.0); MONO # 1.1 10^3/uL (0.0-0.8); MONO % 7.5 % (0.0-5.0); NEUTROPHILS # 10.5 10^3/uL (1.5-8.5); PLATELET COUNT, AUTOMATED 328 10^3/uL (150-450); RED BLOOD COUNT 4.18 10^6/uL (4.00-5.40); WHITE BLOOD COUNT 14.1 10^3/uL (4.0-10.0)
[2019-02-04 18:27] LABS: INR 1.14; PROTHROMBIN TIME 14.4 SECONDS (11.8-14.0)
[2019-02-04] MEDS ORDERED: ONDANSETRON 4MG/2ML VIAL (J2405) IV ONE (18:45)
[2019-02-04 18:49] LABS: ALBUMIN 3.6 GM/DL (3.2-5.2); ALT/SGPT 81 U/L (12-78); BILIRUBIN,DIRECT < 0.1 MG/DL (0.0-0.2); BILIRUBIN,TOTAL 0.2 MG/DL (0.2-1.0); BLOOD UREA NITROGEN 12 MG/DL (7-18); CALCIUM LEVEL 9.8 MG/DL (8.5-10.1); CARBON DIOXIDE LEVEL 22 MEQ/L (21-32); CHLORIDE LEVEL 108 MEQ/L (98-107); CK-MB VALUE MASS < 1.0 NG/ML (<3.6); CPK CREATINE PHOSPHOKINASE 40 U/L (26-192); GLOMERULAR FILTRATION RATE > 60.0 (>58); GLUCOSE, FASTING 161 MG/DL (70-100); POTASSIUM SERUM 3.9 MEQ/L (3.5-5.1); SODIUM LEVEL 138 MEQ/L (136-145); THYROID STIMULATING HORMONE 0.609 uIU/ML (0.358-3.740); TOTAL PROTEIN 8.1 GM/DL (6.4-8.2); TROPONIN I < 0.02 NG/ML (< 0.10)
[2019-02-04] MEDS ORDERED: ISOVUE-370 76% 100ML VIAL (Q9967) As Ordered ONE (18:56)
[2019-02-04] MEDS ORDERED: IPRATROPIUM 0.5MG/ALBUTEROL 2.5MG INH SOL UD 3ML (DUONEB)(J7620) NEB ONE (19:00)
--- NOTE | 2019-02-04 20:18 | REPVR ---
PROCEDURE INFORMATION: Exam: CT Angiography Chest With Contrast Exam date and time: 02/04/2019 7:13 PM Age: 48 years old Clinical history: Shortness of breath; Chest pain; Additional info: Chest pain, SOB TECHNIQUE: Imaging protocol: Computed tomographic angiography of the chest with intravenous contrast. 3D rendering: MIP reconstructed images were created and reviewed. Radiation optimization: All CT scans at this facility use at least one of these dose optimization techniques: automated exposure control; mA and/or kV adjustment per patient size (includes targeted exams where dose is matched to clinical indication); or iterative reconstruction. Contrast material: ISOVUE 370; Contrast volume: 75 ml; Contrast route: IV; COMPARISON: CT ANGIO CHEST 12/18/2018 2:27 PM FINDINGS: Pulmonary arteries: There is opacification of the pulmonary arteries with no evidence of pulmonary embolus. Aorta: There is opacification of the aorta which appears intact. Lungs: There is prominence of the interstitial markings which could be the result of mild congestive changes. Pleural space: Unremarkable. No pneumothorax. No pleural effusion. Heart: There is moderate cardiomegaly. Liver: Suspect hepatomegaly. Lymph nodes: Unremarkable. No enlarged lymph nodes. Bones/joints: There is no evidence of bony abnormality. Soft tissues: Unremarkable. IMPRESSION: 1. No evidence of pulmonary embolus. 2. Moderate cardiomegaly possible very mild congestive change. 3. Possible hepatomegaly. Electronically signed by: Mumtaz Shelley On 02/04/2019 20:18:26 PM
[2019-02-04] MEDS ORDERED: PRED5SOL10 PO (20:34)
[2019-02-04] MEDS ORDERED: methylPREDNISolone INJ 125 MG/2 ML VIAL (J2930) IV ONE (20:45)
[2019-02-04] MEDS ORDERED: predniSONE 5MG/5ML SOLN ORAL SYRINGE PO ONE (20:45)
[2019-02-04 21:09] VITALS: BP 135/74
--- NOTE | 2019-02-05 10:35 | ED PDOC ---
Post-Departure Follow-Up dr raiza claire formal report of cta chest for fu Kika Villela MD Feb 05, 2019 10:35
--- NOTE | 2019-02-05 13:08 | ECGEPIP ---
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
== END 2019-02-04 21:12 | disposition home or self-care (01) ==
LOC: EDBD 17:12 → M ED 17:12
DX: J06.9 Acute upper respiratory infection, unspecified (principal); J45.901 Unspecified asthma with (acute) exacerbation; R00.0 Tachycardia, unspecified; E11.9 Type 2 diabetes mellitus without complications; I10 Essential (primary) hypertension; F43.10 Post-traumatic stress disorder, unspecified; F41.9 Anxiety disorder, unspecified; F32.9 Major depressive disorder, single episode, unspecified; G47.30 Sleep apnea, unspecified; J45.909 Unspecified asthma, uncomplicated; Z86.711 Personal history of pulmonary embolism; I51.7 Cardiomegaly; Z79.01 Long term (current) use of anticoagulants; Z79.4 Long term (current) use of insulin; Z79.899 Other long term (current) drug therapy; Z88.8 Allergy status to other drugs, medicaments and biological substances
CPT/HCPCS: 71275; 80048; 80076; 82550; 82553; 84443; 85025; 85610; 85730; 93005; 93041; 94760; 96374; 96375; 99285; J2405; J2930; Q9967

== ENCOUNTER → 2019-02-04 | Outpatient (CLI) | payer OTHER ==
--- NOTE | 2019-02-04 16:16 | REP ---
Two-view chest: 02/04/2019. Indication: Dyspnea. Comparison: 12/27/2018. Findings: The lungs are clear. There is no pleural effusion or pneumothorax. The cardiomediastinal silhouette is unremarkable. Impression: No acute cardiopulmonary process. Electronically Signed by Miguel Putnam DO 02/04/2019 04:07 P
== END ==
LOC: M LRY 15:47
PROVIDERS: ATTEND Physician Assistant
DX: R06.02 Shortness of breath (principal)

== ENCOUNTER 2019-02-11 17:27 | Emergency (ER) | payer OTHER ==
[~2019-02-11] VITALS: Ht 162.6 cm; Wt 92.5 kg
[2019-02-11] MEDS ORDERED: ONDANSETRON 4MG/2ML VIAL (J2405) IV ONE (17:45)
[2019-02-11] MEDS ORDERED: NS 500 ML IV ONE (18:00)
[2019-02-11] MEDS ORDERED: GABA600T4 PO (18:11)
[2019-02-11] MEDS ORDERED: ELIQ5TAB PO (18:11)
[2019-02-11 18:14] LABS: HEMATOCRIT 36.7 % (36.0-47.0); HEMOGLOBIN 11.3 g/dl (12.0-15.5); MEAN CORPUSCULAR HEMOGLOBIN 28.5 pg (27.0-33.0); MEAN CORPUSCULAR HGB CONC 30.8 g/dl (32.0-36.5); MEAN CORPUSCULAR VOLUME 92.4 fl (80.0-96.0); PLATELET COUNT, AUTOMATED 314 10^3/uL (150-450); RED BLOOD COUNT 3.97 10^6/uL (4.00-5.40); WHITE BLOOD COUNT 14.6 10^3/uL (4.0-10.0)
[2019-02-11 18:31] LABS: ATYPICAL LYMPH 3 % (0-5); BASOPHILS 1 % (0-1); EOSINOPHILS 2 % (0-3); LYMPHOCYTES 27 % (16-44); MONOCYTES 4 % (0-5); NEUTROPHILS 63 % (28-66)
[2019-02-11 18:32] LABS: ANISOCYTOSIS 1+; HYPOCHROMASIA 1+
[2019-02-11 18:33] LABS: PLATELET ESTIMATE NORMAL (NORMAL)
[2019-02-11 18:51] LABS: ALBUMIN 3.5 GM/DL (3.2-5.2); ALT/SGPT 74 U/L (12-78); BILIRUBIN,DIRECT < 0.1 MG/DL (0.0-0.2); BILIRUBIN,TOTAL 0.3 MG/DL (0.2-1.0); BLOOD UREA NITROGEN 13 MG/DL (7-18); CARBON DIOXIDE LEVEL 26 MEQ/L (21-32); CHLORIDE LEVEL 108 MEQ/L (98-107); GLOMERULAR FILTRATION RATE > 60.0 (>58); GLUCOSE, FASTING 122 MG/DL (70-100); LIPASE 433 U/L (73-393); POTASSIUM SERUM 4.3 MEQ/L (3.5-5.1); SODIUM LEVEL 140 MEQ/L (136-145); TOTAL PROTEIN 7.8 GM/DL (6.4-8.2)
[2019-02-11 18:58] LABS: HCG, SERUM QUALITATIVE NEGATIVE (NEGATIVE)
--- NOTE | 2019-02-11 19:52 | REP ---
Clinical: Cough. Comparison: 02/04/2019 . Technique: PA and lateral. Findings: The mediastinum and cardiac silhouette are normal. The lung jara are clear and without acute consolidation, effusion, or pneumothorax. The skeletal structures are intact and normal. Impression: 1. No acute cardiopulmonary process. Electronically Signed by Isidoro Jose MD 02/11/2019 07:43 P
[2019-02-11] MEDS ORDERED: ZOFR4TAB16 PO (20:22)
[2019-02-11 20:38] VITALS: BP 159/95
== END 2019-02-11 20:41 | disposition home or self-care (01) ==
LOC: M ED 17:27
DX: J06.9 Acute upper respiratory infection, unspecified (principal); R11.10 Vomiting, unspecified; E11.9 Type 2 diabetes mellitus without complications; I10 Essential (primary) hypertension; E11.40 Type 2 diabetes mellitus with diabetic neuropathy, unspecified; G47.33 Obstructive sleep apnea (adult) (pediatric); F41.9 Anxiety disorder, unspecified; F32.9 Major depressive disorder, single episode, unspecified; F43.10 Post-traumatic stress disorder, unspecified; M54.12 Radiculopathy, cervical region; Z87.891 Personal history of nicotine dependence; Z79.01 Long term (current) use of anticoagulants; Z79.4 Long term (current) use of insulin; Z79.899 Other long term (current) drug therapy; Z88.8 Allergy status to other drugs, medicaments and biological substances
CPT/HCPCS: 36415; 71046; 80048; 80076; 83690; 84703; 85025; 87486; 87581; 87633; 87798; 87880; 94760; 96361; 96374; 99284; J2405

== ENCOUNTER → 2019-04-14 | Outpatient (REF) | payer OTHER ==
[~2019-04-14] MED LIST changes: -TRAZ-163 PO; +TRAZ-257 PO
[2019-04-14 17:54] LABS: BASO # 0.1 10^3/uL (0.0-0.2); BASO % 0.6 % (0.0-1.0); EOS # 0.3 10^3/uL (0.0-0.5); EOS % 2.3 % (0.0-3.0); HEMATOCRIT 32.9 % (36.0-47.0); HEMOGLOBIN 9.2 g/dl (12.0-15.5); LYMPH # 4.5 10^3/uL (1.5-5.0); LYMPH % 40.5 % (24.0-44.0); MEAN CORPUSCULAR HEMOGLOBIN 24.5 pg (27.0-33.0); MEAN CORPUSCULAR VOLUME 87.7 fl (80.0-96.0); MONO # 0.7 10^3/uL (0.0-0.8); MONO % 6.7 % (0.0-5.0); NEUTROPHILS # 5.5 10^3/uL (1.5-8.5); NEUTROPHILS % 49.4 % (36.0-66.0); PLATELET COUNT, AUTOMATED 342 10^3/uL (150-450); RED BLOOD COUNT 3.75 10^6/uL (4.00-5.40); WHITE BLOOD COUNT 11.1 10^3/uL (4.0-10.0)
[2019-04-14 18:11] LABS: HEMOGLOBIN A1c 10.4 %
[2019-04-14 18:35] LABS: MALB URINE SIEMENS 6.7 MG/L; MAU/CREAT RATIO 5.8 MCG/MG (0.0-30.0)
[2019-04-14 18:36] LABS: ALBUMIN 3.7 GM/DL (3.2-5.2); ALT/SGPT 60 U/L (12-78); BILIRUBIN,DIRECT < 0.1 MG/DL (0.0-0.2); BILIRUBIN,TOTAL 0.2 MG/DL (0.2-1.0); BLOOD UREA NITROGEN 15 MG/DL (7-18); CALCIUM LEVEL 9.1 MG/DL (8.5-10.1); CARBON DIOXIDE LEVEL 26 MEQ/L (21-32); CHLORIDE LEVEL 107 MEQ/L (98-107); CHOLESTEROL LEVEL 205 MG/DL (<200); CHOLESTEROL RISK RATIO 4.767 (<5); CREATININE FOR GFR 0.76 MG/DL (0.55-1.30); GLOMERULAR FILTRATION RATE > 60.0 (>58); GLUCOSE, FASTING 75 MG/DL (70-100); HDL CHOLESTEROL 43 MG/DL (>40); LDL CHOLESTEROL 131 MG/DL (<100); NON-HDL-C 162 MG/DL; POTASSIUM SERUM 4.1 MEQ/L (3.5-5.1); SODIUM LEVEL 140 MEQ/L (136-145); TOTAL PROTEIN 7.8 GM/DL (6.4-8.2); TRIGLYCERIDES LEVEL 156 MG/DL (<150)
[2019-04-14 18:46] LABS: PTH INTACT 42.4 PG/ML (18.5-88.0); TOTAL 25(OH) VITAMIN D 13.3 NG/ML (30.0-100.0)
== END ==
LOC: M SFHCLERA 12:22
PROVIDERS: ATTEND Family Medicine
DX: E11.9 Type 2 diabetes mellitus without complications (principal); R74.8 Abnormal levels of other serum enzymes

== ENCOUNTER → 2019-04-21 | Outpatient (CLI) | payer OTHER ==
--- NOTE | 2019-04-21 18:00 | REP ---
KUB: Two views. History: Generalized abdomen pain. Findings: There are clips in the right upper quadrant and right mid abdomen. Bowel gas pattern is normal. Psoas margins and flank stripes are intact. No mass, organomegaly or pathologic calcification is seen. There is a suture line in the right mid abdomen as well. Impression: Postoperative changes. Normal bowel gas pattern. No significant change from the March 20, 2018 prior study. ADDENDUM: The exam was originally put in as a KUB and I read it as a KUB, but what the doctor actually wanted was an abdominal series, so the tech shot additional x-rays and we are changing the order now to abdominal series. ABDOMINAL SERIES: Additional radiographs have been added to this accession number including upright chest radiograph and upright abdomen views. The lungs are well inflated and clear. There is no evidence of free subdiaphragmatic air or infiltrate. Cardiomediastinal silhouette is unremarkable. Upright views of the abdomen show no significant air fluid levels. There are surgical clips in the right upper and right mid abdomen. IMPRESSION: No evidence of obstruction or free air. No active disease in the chest. Electronically Signed by Emil Booker MD 04/21/2019 07:32 P
== END ==
LOC: M LRY 16:31
PROVIDERS: ATTEND Family Medicine
DX: R10.84 Generalized abdominal pain (principal)

== ENCOUNTER → 2019-04-29 | Outpatient (REF) | payer OTHER ==
[~2019-04-29] MED LIST changes: -ARTIDRO2 OU; +D 101000 PO; +DOXY100C37 PO; +FERR325T18 PO; -MONT10TA2 PO; +MONT10TA4 PO; +POLYOPD OU
[2019-04-29 20:45] LABS: HEMATOCRIT 33.4 % (36.0-47.0); HEMOGLOBIN 9.7 g/dl (12.0-15.5); MEAN CORPUSCULAR HEMOGLOBIN 24.7 pg (27.0-33.0); PERCENT SATURATION 4.2 % (13.2-45.0); PLATELET COUNT, AUTOMATED 300 10^3/uL (150-450); RED BLOOD COUNT 3.93 10^6/uL (4.00-5.40)
[2019-04-29 20:52] LABS: FOLATE 7.3 NG/ML
[2019-04-29 21:14] LABS: ATYPICAL LYMPH 6 % (0-5); EOSINOPHILS 2 % (0-3); LYMPHOCYTES 26 % (16-44); MONOCYTES 8 % (0-5); NEUTROPHILS 57 % (28-66)
[2019-04-29 21:17] LABS: MICROCYTOSIS 2+
[2019-04-29 21:18] LABS: POLYCHROMASIA 1+
[2019-04-29 21:20] LABS: PLATELET ESTIMATE NORMAL (NORMAL); STOMATOCYTES 1+
== END ==
LOC: M SFHCLERA 17:24
PROVIDERS: ATTEND Family Medicine
DX: D64.9 Anemia, unspecified (principal)

== ENCOUNTER 2019-05-18 09:41 | Emergency (ER) | payer OTHER ==
[~2019-05-18] VITALS: Ht 162.6 cm; Wt 94.0 kg
[~2019-05-18 09:41] MED LIST changes: -D 101000 PO; -DOXY100C37 PO; -FERR325T18 PO
[2019-05-18] MEDS ORDERED: PRED5SOL10 PO ×2 (09:48→12:34)
[2019-05-18] MEDS ORDERED: DOXY100C37 PO (09:48)
[2019-05-18] MEDS ORDERED: LEVALBUTEROL 1.25 MG/0.5 ML CONCENTRATE NEB NEB ONE (10:30)
[2019-05-18] MEDS ORDERED: IPRATROPIUM 0.02% SOLN 0.5MG/2.5 ML NEB NEB ONE (10:30)
--- NOTE | 2019-05-18 10:58 | REP ---
Chest x-ray: Two views. History: Productive cough . Comparison study: April 21, 2019 . Findings: The lungs are well inflated and free of infiltrate. The pleural angles are sharp. The heart size is normal. Pulmonary vasculature is not increased. No significant bony abnormality is seen. Impression: Negative chest x-ray. Electronically Signed by Emil Booker MD 05/18/2019 10:49 A
[2019-05-18] MEDS ORDERED: predniSONE 5MG/5ML SOLN ORAL SYRINGE PO ONE (11:15)
[2019-05-18 11:33] LABS: HEMATOCRIT 37.8 % (36.0-47.0); HEMOGLOBIN 11.3 g/dl (12.0-15.5); MEAN CORPUSCULAR HEMOGLOBIN 25.8 pg (27.0-33.0); MEAN CORPUSCULAR HGB CONC 29.9 g/dl (32.0-36.5); MEAN CORPUSCULAR VOLUME 86.3 fl (80.0-96.0); PLATELET COUNT, AUTOMATED 322 10^3/uL (150-450); RED BLOOD COUNT 4.38 10^6/uL (4.00-5.40)
[2019-05-18 11:41] LABS: WHITE BLOOD COUNT 17.5 10^3/uL (4.0-10.0)
[2019-05-18 12:06] LABS: ALBUMIN 3.7 GM/DL (3.2-5.2); ALT/SGPT 63 U/L (12-78); BILIRUBIN,TOTAL 0.5 MG/DL (0.2-1.0); BLOOD UREA NITROGEN 22 MG/DL (7-18); CALCIUM LEVEL 8.8 MG/DL (8.5-10.1); CARBON DIOXIDE LEVEL 23 MEQ/L (21-32); CHLORIDE LEVEL 106 MEQ/L (98-107); CREATININE FOR GFR 0.87 MG/DL (0.55-1.30); GLOMERULAR FILTRATION RATE > 60.0 (>58); GLUCOSE, FASTING 260 MG/DL (70-100); POTASSIUM SERUM 3.9 MEQ/L (3.5-5.1); SODIUM LEVEL 138 MEQ/L (136-145); TOTAL PROTEIN 7.9 GM/DL (6.4-8.2)
[2019-05-18 12:07] LABS: EOSINOPHILS 3 % (0-3); LYMPHOCYTES 40 % (16-44); MONOCYTES 8 % (0-5); NEUTROPHILS 48 % (28-66)
[2019-05-18 12:08] LABS: PLATELET ESTIMATE NORMAL (NORMAL)
[2019-05-18 12:09] LABS: ANISOCYTOSIS 1+
[2019-05-18 12:39] VITALS: BP 143/95
[2019-05-19] MEDS ORDERED: FERR325T18 PO (19:12)
[2019-05-19] MEDS ORDERED: D 101000 PO (19:12)
== END 2019-05-18 12:45 | disposition home or self-care (01) ==
LOC: M ED 09:41
DX: J44.1 Chronic obstructive pulmonary disease with (acute) exacerbation (principal); B34.8 Other viral infections of unspecified site; I11.0 Hypertensive heart disease with heart failure; M79.7 Fibromyalgia; F43.10 Post-traumatic stress disorder, unspecified; Z79.01 Long term (current) use of anticoagulants; Z79.4 Long term (current) use of insulin; Z79.899 Other long term (current) drug therapy; Z88.8 Allergy status to other drugs, medicaments and biological substances

== ENCOUNTER 2019-05-19 15:50 | Inpatient (IN) | payer OTHER ==
[~2019-05-19] VITALS: Ht 162.6 cm; Wt 96.6 kg
[~2019-05-19 15:50] MED LIST changes: +DOXY100C37 PO
[2019-05-19] MEDS ORDERED: ALBUTEROL SULFATE 2.5 MG/0.5 ML INH NEB SOLN INH ONE (17:30)
[2019-05-19] MEDS ORDERED: dexameTHASONE 20 MG/5 ML VIAL (J1100) IV ONE (17:30)
[2019-05-19] MEDS ORDERED: IPRATROPIUM 0.5MG/ALBUTEROL 2.5MG INH SOL UD 3ML (DUONEB)(J7620) NEB ONE (17:30)
[2019-05-19 17:50] LABS: ABG BASE EXCESS -6.5 (-2.0-2.0); ABG HCO3 17.6 MEQ/L (22.0-26.0); ABG O2 SATURATION 90.4 % (95.0-99.0); ABG PARTIAL PRESSURE CO2 30.4 mmHg (35.0-45.0); ABG PARTIAL PRESSURE O2 61.4 mmHg (75.0-100.0); ABG TOTAL CO2 18.6 MEQ/L (22.0-29.0); ABG pH (ARTERIAL) 7.381 UNITS (7.350-7.450)
[2019-05-19 17:53] LABS: BASO % 0.3 % (0.0-1.0); EOS % 0.1 % (0.0-3.0); HEMATOCRIT 32.9 % (36.0-47.0); HEMOGLOBIN 9.8 g/dl (12.0-15.5); LYMPH # 1.1 10^3/uL (1.5-5.0); LYMPH % 7.9 % (24.0-44.0); MEAN CORPUSCULAR HEMOGLOBIN 25.8 pg (27.0-33.0); MEAN CORPUSCULAR HGB CONC 29.8 g/dl (32.0-36.5); MEAN CORPUSCULAR VOLUME 86.6 fl (80.0-96.0); MONO # 0.2 10^3/uL (0.0-0.8); MONO % 1.1 % (0.0-5.0); NEUTROPHILS # 12.1 10^3/uL (1.5-8.5); NEUTROPHILS % 89.7 % (36.0-66.0); PLATELET COUNT, AUTOMATED 262 10^3/uL (150-450); WHITE BLOOD COUNT 13.5 10^3/uL (4.0-10.0)
[2019-05-19 18:03] LABS: INR 1.27; PROTHROMBIN TIME 15.7 SECONDS (11.8-14.0)
--- NOTE | 2019-05-19 18:14 | REP ---
Portable chest x-ray: Single view. History: Dyspnea and cough. Comparison study: May 18, 2019. Findings: EKG electrodes are seen. The lungs are symmetrically aerated and no infiltrate is seen. Heart is not enlarged. Pulmonary vasculature is not increased. No significant bony abnormality. Impression: No active disease. Electronically Signed by Emil Booker MD 05/19/2019 06:06 P
[2019-05-19 18:31] LABS: ALBUMIN 3.4 GM/DL (3.2-5.2); ALT/SGPT 55 U/L (12-78); BILIRUBIN,DIRECT < 0.1 MG/DL (0.0-0.2); BILIRUBIN,TOTAL 0.2 MG/DL (0.2-1.0); BLOOD UREA NITROGEN 24 MG/DL (7-18); CALCIUM LEVEL 8.9 MG/DL (8.5-10.1); CARBON DIOXIDE LEVEL 19 MEQ/L (21-32); CHLORIDE LEVEL 105 MEQ/L (98-107); CK-MB VALUE MASS < 1.0 NG/ML (<3.6); CPK CREATINE PHOSPHOKINASE 36 U/L (26-192); GLOMERULAR FILTRATION RATE 43.1 (>58); GLUCOSE, FASTING 411 MG/DL (70-100); MB/CK RELATIVE INDEX 2.78 (< OR =4); NT-PRO BNP 9 PG/ML (<125); POTASSIUM SERUM 4.4 MEQ/L (3.5-5.1); SODIUM LEVEL 137 MEQ/L (136-145); THYROID STIMULATING HORMONE 0.311 uIU/ML (0.358-3.740); TOTAL PROTEIN 7.2 GM/DL (6.4-8.2); TROPONIN I < 0.02 NG/ML (< 0.10)
[2019-05-19] MEDS ORDERED: HumaLOG INSULIN (NovoLOG) PER UNIT SC STA (18:40)
[2019-05-19] MEDS ORDERED: ACETAMINOPHEN 500 MG TAB PO ONE (19:00)
[2019-05-19] MEDS ORDERED: NS 1,000 ML IV ONE (19:00)
[2019-05-19] MEDS ORDERED: SODIUM CHLORIDE 0.9% 1000ML IV STA (19:11)
[2019-05-19] MEDS ORDERED: D 101000 PO (19:12)
[2019-05-19] MEDS ORDERED: FERR325T18 PO (19:12)
[2019-05-19] MEDS ORDERED: DEXTROSE 50% 50 ML SYRINGE IV PRN (19:15)
[2019-05-19] MEDS ORDERED: ALBUTEROL SULFATE 2.5 MG/0.5 ML INH NEB SOLN NEB PRN (19:15)
[2019-05-19] MEDS ORDERED: ACETAMINOPHEN TAB 650MG DOSE (2X325MG) PO PRN (19:15)
[2019-05-19] MEDS ORDERED: GLUCAGON FOR INJ 1 MG VIAL (J1610) SC PRN (19:15)
[2019-05-19] MEDS ORDERED: GLUCOSE 4 GM CHEW TABLET PO PRN (19:15)
--- NOTE | 2019-05-19 19:21 | HPEPDOC ---
[facility] Medical History & Physical Date of Admission May 19, 2019 Date of Service: May 19, 2019 Primary Care Physician: ADALBERTO ANGELES DO Attending Physician: EDWARD RADFORD MD History and Physical TIME OF SERVICE: 7:25 PM CHIEF COMPLAINT: Shortness of breath HISTORY OF PRESENT ILLNESS: This is a 48 old female presents with complaints of shortness of breath for about 1 week associated with cough, and chest tightness. She denies having fevers or chills. One week ago she visited her PCP who put her on 40 mg of steroids. She she continued to feel short of breath and saw her PCP again yesterday who put her on 60 mg of steroids and diagnosed with rhinovirus. Today she came into the hospital because her symptoms were getting worse. Per Dr. Ibarra, she received nebs, decadron and insulin. REVIEW OF SYSTEMS: 12 point review of systems negative except as listed in HPI PAST MEDICAL/ SURGICAL HISTORY: Alpha-1 antitrypsin deficiency with liver cirrhosis and emphysema / she also has asthma Diabetes, negative by neuropathy History of PE on Elquis Chronic hypertension. Migraines. WANDY / sleep study report: " Nightly use of pressure therapy at 6 cm of water." History of pancreatitis Anxiety/depression Status post cholecystectomy Status post appendectomy Status post tonsillectomy Status post 3 Obesity SOCIAL HISTORY: She quit smoking 5 years ago FAMILY HISTORY: Diabetes Hypertension Atrial fibrillation Both her parents and sister are Alpha-1 antitrypsin deficiency carriers ALLERGIES: Please see below. HOME MEDICATIONS: Please see below. PHYSICAL EXAMINATION: Vital Signs Date Time Temp Pulse Resp B/P (MAP) Pulse Ox O2 Delivery O2 Flow Rate FiO2 05/19/19 15:50 97.0 105 18 148/77 (100) 99 Room Air GEN: Obese / well developed/ NAD INTEGUMENT: She does not have facial plethora HEENT:NCAT / lips are not cyanotic /she doesn't have pursed lip breathing / trachea midline / mucus membranes moist and pink / sclera anicteric CVS: RRR/ + JVP / there is trace no lower extremity edema LUNGS: She has able to speak full sentences without stopping to take a breath / there is decreased respiratory expansion/ her breath sounds are diminished ABDOMEN: Contour obese/ bowel sounds are present / soft & not tender with palpation NEURO: CN 2-12 are grossly intact / speech is not dysarthric PSYCH: alert and oriented to person place and time/ able to understand and follow all commands LABORATORY DATA: IMAGING: Chest x-ray " Impression: No active disease." MICROBIOLOGY: Please see below. ASSESSMENT: Ms. Vail is a 48-year-old with a past medical history of alpha-1 antitrypsin deficiency with liver cirrhosis and emphysema, asthma, diabetes with neuropathy, history of PE, migraines, WANDY, anxiety, depression, and obesity who is admitted for management of asthma/ emphysema exacerbation secondary to rhinovirus infection. PLAN: 1. Sepsis secondary to rhinovirus infection SIRS criteria include HR >90 / WBC >12 / RR >20 QSOFA score = 1 = not high risk Plan: admit to medical floor / telemetry / Sepsis protocol w repeat lactic acid / per sepsis protocol will give 1 dose of vancomycin and meropenem pending blood cx results / IVF/ Acetaminophen PRN for fever / target MAP 65 to 70 / f/u Is and Os with target UOP of atleast 0.5 ml/kg/H / target serum glucose 140-180 while acutely ill 2. Acute asthma/COPD 2/2 Rhionvirus Despite her ABG showing a PO2 of 61.4, she is currently satting well on room air on room air Plan: supplemental O2 / continuous pulse oximetry / aspiration precautions /she also has consisting asthma we will give 1 dose of mag sulfate / because she states her symptoms are not improving, we repeat a respiratory panel, / Dunebs Q6H, Albuterol Q1HP, IV Solu-Medrol with PPI /continue monteluklast / refer to Records Officer for repeat PFTs and Pulmonary Rehab when ready for d/c 3. MARITZA Likely prerenal due to dehydration Her creatinine was 0.87 yesterday but today it is 1.4 Her BUN is also elevated, but her CPKs within normal limits Plan: Is/Os, daily weights / IVF / f/u UA to look for hyaline casts and ulytes for FENa / renal US 4. 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 History of PE - Plan: Elquis 7. Chronic hypertension - Plan: Amlodipine, hold lisinopril because of MARITZA 8. Migraines - Plan: Topiramate 9. WANDY - Plan: CPAP 10. 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 & referral for Bariatric Surgeon DVT PROPHYLAXIS: N/A because she is on Elquis DISPOSITION: Home after more than 2 midnight's stay Laboratory Data Microbiology Microbiology 05/19/19 Blood Culture, Received Pending 05/19/19 Blood Culture, Received Pending Home Medications Scheduled Amlodipine Besylate (Amlodipine Besylate) 10 Mg Tablet, 10 MG PO DAILY Apixaban (Eliquis) 5 Mg Tablet, 5 MG PO BID Buspirone HCl (Buspirone HCl) 30 Mg Tablet, 30 MG PO BID Cetirizine HCl (Cetirizine HCl) 10 Mg Tab, 10 MG PO DAILY Cholecalciferol (Vitamin D3) (Vitamin D3) 25 Mcg Capsule, 25 MCG PO DAILY Doxycycline Monohydrate (Doxycycline Monohydrate) 100 Mg Capsule, 100 MG PO BID FILLED 05/12/19 FOR 7 DAYS Dulaglutide (Trulicity) 0.75 Mg/0.5 Ml Pen.injctr, 0.75 MG SC QWEEK TUESDAYS Ferrous Sulfate (Ferrous Sulfate) 325 Mg Tablet, 325 MG PO DAILY Gabapentin (Gabapentin) 600 Mg Tablet, 600 MG PO TID Insulin Glargine,Hum.rec.anlog (Basaglar Kwikpen U-100) 100 Unit/1 Ml Insuln.pen, 70 UNIT SC BID Insulin Human Regular (Humulin R) 1 Units/0.01 Ml Soln, 1 DOSE SC ACHS PER SLIDING SCALE Levothyroxine Sodium (Synthroid) 25 Mcg Tab, 25 MCG PO DAILY Lisinopril (Lisinopril) 10 Mg Tab, 10 MG PO DAILY Montelukast Sodium (Montelukast Sodium) 10 Mg Tablet, 10 MG PO DAILY Pantoprazole Sodium (Protonix) 40 Mg Tab, 40 MG PO BID Prazosin Hcl (Prazosin HCl) 1 Mg Capsule, 3 MG PO QHS Prednisolone (Prednisolone) 15 Mg/5 Ml Solution, 60 MG PO DAILY FILLED 05/18/19 - TAPER DOSE - 60MG DAILY FOR 2 DAYS, 45MG DAILY FOR 3 DAYS, 30MG DAILY FOR 3 DAYS, 15MG DAILY FOR 3 DAYS Prednisone (Prednisone Intensol) 5 Mg/1 Ml Oral.conc, 10 ML PO DAILY Tizanidine HCl (Tizanidine HCl) 4 Mg Tab, 4 MG PO TID Topiramate (Topiramate) 50 Mg Tab, 50 MG PO BID Venlafaxine HCl (Venlafaxine HCl ER) 150 Mg Tab.er.24, 150 MG PO DAILY Scheduled PRN Albuterol Sulfate (Ventolin Hfa) 108 Mcg/Act Aer, 2 PUFFS INH Q4H PRN for SHORTNESS OF BREATH Docusate Sodium (Colace) 100 Mg Cap, 100 MG PO DAILY PRN for CONSTIPATION Ipratropium/Albuterol Sulfate (Iprat-Albut 0.5-3(2.5) mg/3 ml) 3 Ml Ampul.neb, 1 VIAL NEB Q4H PRN for SHORTNESS OF BREATH Polyethylene Glycol 3350 (Polyethylene Glycol 3350) 510 Gm Powder, 17 GRAM PO DAILY PRN for CONSTIPATION Polyvinyl Alcohol (Artificial Tears) 1.4 % Debora, 1 DROP OU BID PRN for DRY EYES Sumatriptan Succinate (Sumatriptan Succinate) 50 Mg Tab, 50 MG PO BID PRN for MIGRAINE Triamcinolone Acetonide (Triamcinolone Acetonide) 0.1 % Lot, 1 DOSE EXT BID PRN for RASH USES ON ELBOWS AND FINGERS Allergies Coded Allergies: meclizine (Verified Allergy, Severe, shock, 02/04/19) prednisone (Verified Allergy, Intermediate, hives, 02/04/19) PT STATES ONLY 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
[2019-05-19] MEDS ORDERED: POLYVINYL ALCOHOL OPHTH SOLN 15 ML(LIQUITEARS) OU PRN (19:45)
[2019-05-19] MEDS ORDERED: MIRALAX *UNIT DOSE* 17GM PACKET PO PRN (19:45)
[2019-05-19] MEDS ORDERED: SUMAtriptan SUCCINATE 25 MG TAB PO PRN (19:45)
[2019-05-19 19:53] LABS: FERRITIN 44 NG/ML (8-252); IRON (FE) 147 UG/DL (50-170); PERCENT SATURATION 36.4 % (13.2-45.0); TOTAL IRON BINDING CAPACITY 404 UG/DL (250-450)
[2019-05-19] MEDS ORDERED: MEROPENEM INJ 1 GM in IV 1 EA IV ONE (20:00)
[2019-05-19] MEDS: IPRATROPIUM 0.5MG/ALBUTEROL 2.5MG INH SOL UD 3ML (DUONEB)(J7620) NEB SCH (20:00)
[2019-05-19] MEDS ORDERED: MAG SULF 1GM/100ML (MAG RUN) 1 GM in IV 1 EA IV ONE (20:00)
[2019-05-19 20:04] LABS: HEMOGLOBIN A1c 10.4 %
[2019-05-19] MEDS ORDERED: VANCOMYCIN HCL 1,000 MG, VIAL MATE ADAPTER 1 EACH in D5W 250 ML IV ONE (21:00)
[2019-05-19] MEDS ORDERED: LEVEMIR (INSULIN DETEMIR) 1 UNITS/0.01ML SC SCH (21:00)
[2019-05-19 21:46] LABS: FREE T3 1.9 PG/ML (2.2-4.0); FREE T4 1.16 NG/DL (0.76-1.46)
[2019-05-19] MEDS: busPIRone 10 MG TAB PO SCH (22:12)
[2019-05-19] MEDS: GABAPENTIN 300 MG CAP PO SCH (22:12)
[2019-05-19] MEDS: PRAZOSIN 1 MG CAP PO SCH (22:14)
[2019-05-19] MEDS: tiZANidine 4 MG TAB PO SCH (22:15)
[2019-05-19] MEDS: DOCUSATE SODIUM 100 MG CAP PO SCH (22:15)
[2019-05-19] MEDS: PANTOPRAZOLE 40MG TAB (PROTONIX) PO SCH (22:15)
[2019-05-19] MEDS: TOPIRAMATE (TopAMAX) 25 MG TAB PO SCH (22:17)
[2019-05-19] MEDS: APIXABAN 5 MG TAB (ELIQUIS) PO SCH (22:50)
[2019-05-20] VITALS (7 sets, daily range): BP systolic 118–144; BP diastolic 63–87
[2019-05-20] MEDS: HumaLOG INSULIN (NovoLOG) PER UNIT SC SCH ×4 (00:39→17:45)
[2019-05-20] MEDS ORDERED: CALCIUM CARBONATE 500 MG CHEW U/D PO ONE (00:45)
[2019-05-20] MEDS ORDERED: methylPREDNISolone INJ 125 MG/2 ML VIAL (J2930) IV SCH (02:00)
[2019-05-20] MEDS: IPRATROPIUM 0.5MG/ALBUTEROL 2.5MG INH SOL UD 3ML (DUONEB)(J7620) NEB SCH ×4 (03:24→22:02)
[2019-05-20 05:16] LABS: HEMATOCRIT 28.3 % (36.0-47.0); HEMOGLOBIN 8.5 g/dl (12.0-15.5); MEAN CORPUSCULAR HEMOGLOBIN 26.2 pg (27.0-33.0); MEAN CORPUSCULAR VOLUME 87.1 fl (80.0-96.0); PLATELET COUNT, AUTOMATED 228 10^3/uL (150-450); RED BLOOD COUNT 3.25 10^6/uL (4.00-5.40); WHITE BLOOD COUNT 11.9 10^3/uL (4.0-10.0)
[2019-05-20 05:35] LABS: BLOOD UREA NITROGEN 14 MG/DL (7-18); CALCIUM LEVEL 8.2 MG/DL (8.5-10.1); CARBON DIOXIDE LEVEL 17 MEQ/L (21-32); CHLORIDE LEVEL 113 MEQ/L (98-107); CREATININE FOR GFR 0.74 MG/DL (0.55-1.30); GLOMERULAR FILTRATION RATE > 60.0 (>58); GLUCOSE, FASTING 330 MG/DL (70-100); MAGNESIUM LEVEL 2.2 MG/DL (1.8-2.4); POTASSIUM SERUM 3.9 MEQ/L (3.5-5.1); SODIUM LEVEL 140 MEQ/L (136-145)
[2019-05-20] MEDS: LEVOTHYROXINE 25MCG TABLET (0.025MG) PO SCH (06:48)
--- NOTE | 2019-05-20 07:05 | ECGEPIP ---
[facility] - ED Test Date: 2019-05-19 Pat Name: PATY CRYSTAL Department: Room: - Gender: Female Cage Shift Manager: JHONATAN : 1970 Requested By: DES Cisneros Order Number: [id number] Reading MD: Dale Dueñas Measurements Intervals [place] Rate: 123 P: 45 GA: 161 QRS: -4 QRSD: 93 T: 11 QT: 338 QTc: 485 Interpretive Statements SINUS TACHYCARDIA POOR R WAVE PROGRESSION LEFT VENTRICULAR HYPERTROPHY AND ST-T CHANGE SIMILAR TO 02/04/19 Electronically Signed on 05-20-2019 7:05:40 EST by Dale Dueñas
[2019-05-20] MEDS ORDERED: NS 1,000 ML IV ONE (08:00)
--- NOTE | 2019-05-20 08:26 | REP ---
Urinary tract sonogram: History: Acute kidney insufficiency. Comparison: No comparison study. Findings: Scanning at the level of the urinary bladder shows no abnormality. Renal cortical echogenicity pattern is normal bilaterally and contours are smooth. There is no evidence of hydronephrosis, cyst, mass, or calculus in either kidney. The right kidney measures 12.3 x 4.1 x 5.3 cm. Left renal dimensions are 12.6 x 5.5 x 5.2 cm. Impression: Normal urinary tract sonography. Electronically Signed by Emil Booker MD 05/20/2019 08:18 A
[2019-05-20] MEDS: VITAMIN D 1,000 INTERNATIONAL UNITS TABLET PO SCH (08:33)
[2019-05-20] MEDS: APIXABAN 5 MG TAB (ELIQUIS) PO SCH ×2 (08:33→21:41)
[2019-05-20] MEDS: DOCUSATE SODIUM 100 MG CAP PO SCH ×2 (08:33→21:38)
[2019-05-20] MEDS: GABAPENTIN 300 MG CAP PO SCH ×3 (08:34→21:42)
[2019-05-20] MEDS: CETIRIZINE (ZyrTEC) 10 MG TAB PO SCH (08:34)
[2019-05-20] MEDS: busPIRone 10 MG TAB PO SCH ×2 (08:34→21:42)
[2019-05-20] MEDS: MONTELUKAST 10 MG TAB PO SCH (08:34)
[2019-05-20] MEDS: tiZANidine 4 MG TAB PO SCH ×3 (08:34→21:38)
[2019-05-20] MEDS: TOPIRAMATE (TopAMAX) 25 MG TAB PO SCH ×2 (08:35→21:42)
[2019-05-20] MEDS: VENLAFAXINE **XR** 75MG CAPSULE PO SCH (08:35)
[2019-05-20] MEDS: amLODIPine 10 MG TAB PO SCH (08:35)
[2019-05-20] MEDS: LEVEMIR (INSULIN DETEMIR) 1 UNITS/0.01ML SC SCH ×2 (08:43→21:42)
[2019-05-20] MEDS ORDERED: LEVEMIR (INSULIN DETEMIR) 1 UNITS/0.01ML SC SCH (09:00)
[2019-05-20] MEDS ORDERED: lisinopriL 10 MG TAB PO SCH (09:00)
[2019-05-20] MEDS: methylPREDNISolone INJ 40 MG/1 ML VIAL (J2920) IV SCH (13:30)
--- NOTE | 2019-05-20 20:55 | IPN ---
DATE: 05/20/2019 The patient says that her breathing is much better. No dizziness or lightheadedness despite palpitations. The patient is on chronic Eliquis for a history of pulmonary embolus and deep vein thrombosis (DVT). She does follow with Dr. Mccurdy and has an appointment next month due to a history of alpha 1 anti-trypsin deficiency. No cough. No chest pain or pressure. No other issues per nursing. Saturating 100% on room air. PHYSICAL EXAMINATION: VITAL SIGNS: Temperature 98.8, pulse 100, respiratory rate 18, blood pressure 119/67, 100% on room air. GENERAL: The patient is awake, alert, oriented. Answering questions appropriately. No tracheal deviation. No cyanosis. Able to speak in full sentences without conversational dyspnea. No jugular venous distention (JVD). No stridor. LUNGS: Diminished, clear to auscultation. No wheezing or rales. HEART: S1, S2. Sinus tachycardia. ABDOMEN: Soft, nontender, nondistended. Positive bowel sounds. No rebound or guarding. EXTREMITIES: No cyanosis, clubbing or pitting edema. LABORATORY DATA: White count 11, hemoglobin 8.5, hematocrit 28, platelet count 228. Sodium 140, potassium 3.9, chloride 113, bicarbonate 17, BUN 14, creatinine 0.74, glucose of 330. Lactic acid 5.9. Blood cultures negative. Chest x-ray on 05/19/2019 with no active disease. Microbiology: Positive rhinovirus. ASSESSMENT AND PLAN: This is a 48-year-old obese female with obstructive sleep apnea, alpha 1 anti-trypsin deficiency with liver cirrhosis, emphysema, asthma, diabetes, pulmonary embolus on chronic Eliquis, hypertension, migraines, pancreatitis, anxiety, depression, cholecystectomy, section times three, who presented with worsening shortness of breath and admitted for acute chronic obstructive pulmonary disease (COPD)/asthma exacerbation secondary to rhinovirus. CURRENT ISSUES: 1. Acute chronic obstructive pulmonary disease (COPD) exacerbation secondary to rhinovirus. The patient's lactic acid is still elevated. Still on intravenous fluids. The patient is currently doing well on room air with clear lungs. We will continue to decrease the Solu-Medrol. 2. Acute kidney injury, resolved. Status post intravenous fluids. 3. Type 2 diabetes with neuropathy. A1/c is elevated. Steroid induced hyperglycemia. Currently, Levemir increased to 80 units subcutaneously twice a day. Hold for glucose less than 200. Continue with insulin sliding scale and consistent carbohydrate diet. 4. Obesity. Continue on continuous positive airway pressure (CPAP) for possible obesity hypoventilation syndrome. DISPOSITION: May transfer to medical/surgical floor.
[2019-05-20] MEDS: PANTOPRAZOLE 40MG TAB (PROTONIX) PO SCH (21:38)
[2019-05-20] MEDS: PRAZOSIN 1 MG CAP PO SCH (21:41)
[2019-05-21] MEDS: HumaLOG INSULIN (NovoLOG) PER UNIT SC SCH ×2 (00:57→06:24)
[2019-05-21] MEDS: methylPREDNISolone INJ 40 MG/1 ML VIAL (J2920) IV SCH (01:49)
[2019-05-21] MEDS: IPRATROPIUM 0.5MG/ALBUTEROL 2.5MG INH SOL UD 3ML (DUONEB)(J7620) NEB SCH ×2 (03:10→07:59)
[2019-05-21 06:00] VITALS: BP 130/84
[2019-05-21] MEDS: LEVOTHYROXINE 25MCG TABLET (0.025MG) PO SCH (06:23)
[2019-05-21] MEDS ORDERED: PRED5CON PO (08:33)
[2019-05-21] MEDS: VITAMIN D 1,000 INTERNATIONAL UNITS TABLET PO SCH (08:58)
[2019-05-21] MEDS: LEVEMIR (INSULIN DETEMIR) 1 UNITS/0.01ML SC SCH (08:58)
[2019-05-21] MEDS: VENLAFAXINE **XR** 75MG CAPSULE PO SCH (08:58)
[2019-05-21] MEDS: GABAPENTIN 300 MG CAP PO SCH (08:58)
[2019-05-21 08:59] VITALS: BP 130/84
[2019-05-21] MEDS: tiZANidine 4 MG TAB PO SCH (08:59)
[2019-05-21] MEDS: DOCUSATE SODIUM 100 MG CAP PO SCH (08:59)
[2019-05-21] MEDS: MONTELUKAST 10 MG TAB PO SCH (08:59)
[2019-05-21] MEDS: predniSONE 20 MG TAB PO SCH ×2 (08:59→09:00)
[2019-05-21] MEDS: TOPIRAMATE (TopAMAX) 25 MG TAB PO SCH (08:59)
[2019-05-21] MEDS: amLODIPine 10 MG TAB PO SCH (08:59)
[2019-05-21] MEDS: APIXABAN 5 MG TAB (ELIQUIS) PO SCH (09:00)
[2019-05-21] MEDS: busPIRone 10 MG TAB PO SCH (09:00)
[2019-05-21] MEDS: CETIRIZINE (ZyrTEC) 10 MG TAB PO SCH (09:00)
[2019-05-21 10:00] VITALS: BP 136/82
--- NOTE | 2019-05-22 12:51 | DSES ---
DATE OF ADMISSION: 05/19/2019 DATE OF DISCHARGE: 05/21/2019 PRIMARY DISCHARGE DIAGNOSES: 1. Acute hypoxic respiratory failure secondary to rhinovirus. 2. Chronic obstructive pulmonary disease (COPD) exacerbation. 3. History of alpha-1 antitrypsin deficiency with emphysema. 4. Acute kidney injury. DISCHARGE MEDICATIONS: - prednisone taper liquid, as previously prescribed by the emergency room (ER) - albuterol two puffs every 4 hours as needed - Norvasc 10 mg daily - Eliquis 5 mg twice a day - buspirone 30 mg twice a day - cetirizine 10 mg daily - vitamin D 25 mcg daily - Colace 100 mg daily as needed - doxycycline 100 mg twice a day - Trulicity weekly - ferrous sulfate 325 daily - gabapentin 600 mg three times a day - Basaglar insulin 70 units twice a day - Humulin insulin one dose sliding scale before food and at bedtime - Combivent one vial nebulizer every 4 hours as needed - levothyroxine 25 mcg daily - lisinopril 10 mg daily - montelukast 10 mg daily - Protonix 40 mg twice a day - MiraLax 17 grams daily as needed - Artifical Tears one drop both eyes twice a day - prazosin 3 mg at bedtime - prednisolone 60 mg daily tapered - sumatriptan 50 mg twice a day as needed for migraine - tizanidine 4 mg three times a day - Topamax 50 mg twice a day - triamcinolone 1 drop twice a day as needed for rash - venlafaxine 150 mg daily HOSPITAL COURSE: This is a 48-year-old female who presented to the emergency room with acute onset of shortness of breath, admitted for acute hypoxic respiratory failure requiring supplemental oxygen due to rhinovirus with acute COPD exacerbation. Patient has been treated with intravenous (IV) Solu-Medrol, nebulizer treatments, supplemental oxygen. She was kept on all her home medications for diabetes with significant symptomatic improvement and was saturating 99% on day of discharge. Patient says that she has an allergy to prednisone tablet and so liquid was prescribed by the emergency room, which she is to continue at home. Microbiology was positive for rhinovirus. Three blood cultures were negative. White count is 11.9, most likely steroid induced. She had lactic acidosis on admission, with lactic acid 9.2, improved to 2.5. Patient was given IV fluids for lactic acidosis with significant improvement to normal creatinine. PHYSICAL EXAMINATION ON DISCHARGE: Temperature 97.9, pulse 100, respiratory rate 18, blood pressure 136/82, 99% on room air. GENERAL: Awake, alert, oriented times three, answering questions appropriately. No cyanosis. No clubbing. No icterus. Patient has no use of respiratory accessory muscles. No stridor on exam. LUNGS: Clear to auscultation. No wheezing, rales or rhonchi. Air entry is equal. No conversational dyspnea. HEART: S1, S2. Sinus rhythm. ABDOMEN: Soft, nontender, nondistended. EXTREMITIES: No pitting edema. LABORATORY DATA: White count 11.9, hemoglobin 8.5, hematocrit 28, platelet count 228. Sodium 149, potassium 3.9, chloride 113, bicarbonate 17, BUN 14, creatinine 0.74, glucose of 330, lactic acid of 2.5. MICROBIOLOGY: Blood cultures negative. Respiratory panel: Rhinovirus. IMAGING STUDIES: Renal ultrasound 05/19/2019: Normal renal ultrasound. Chest x-ray on 05/19/2019: No active disease.
[2019-05-25] MEDS ORDERED: DULAGLUTIDE 0.75 MG SC SCH (09:00)
== END 2019-05-21 10:58 | disposition home or self-care (01) | DRG 140 ==
LOC: M ED 15:50 → M ED INP 19:11 → ENRESERVDT 22:33 → CANRESERV 22:33 → ENRESERVTM 22:33 → ENRESERVDT 22:47 → M ICU 05-20 00:05 → M MSPAV 05-20 10:46
PROVIDERS: ADMIT Internal Medicine; ATTEND General Practice
DX: J44.1 Chronic obstructive pulmonary disease with (acute) exacerbation (principal); N17.9 Acute kidney failure, unspecified; E87.2 Acidosis; E11.40 Type 2 diabetes mellitus with diabetic neuropathy, unspecified; J45.901 Unspecified asthma with (acute) exacerbation; E11.65 Type 2 diabetes mellitus with hyperglycemia; E88.01 Alpha-1-antitrypsin deficiency; K74.60 Unspecified cirrhosis of liver; B97.89 Other viral agents as the cause of diseases classified elsewhere; I10 Essential (primary) hypertension; G47.33 Obstructive sleep apnea (adult) (pediatric); G43.909 Migraine, unspecified, not intractable, without status migrainosus; F41.9 Anxiety disorder, unspecified; E66.9 Obesity, unspecified; Z87.891 Personal history of nicotine dependence; F32.9 Major depressive disorder, single episode, unspecified; Z86.711 Personal history of pulmonary embolism; Z90.49 Acquired absence of other specified parts of digestive tract; E86.0 Dehydration; Z79.01 Long term (current) use of anticoagulants; Z79.4 Long term (current) use of insulin; Z79.899 Other long term (current) drug therapy; Z79.52 Long term (current) use of systemic steroids; Z88.8 Allergy status to other drugs, medicaments and biological substances; Z86.718 Personal history of other venous thrombosis and embolism; Z68.37 Body mass index [BMI] 37.0-37.9, adult

== ENCOUNTER → 2019-06-10 | Outpatient (REF) | payer OTHER ==
[~2019-06-10] MED LIST changes: +D 101000 PO; +FERR325T18 PO
[2019-06-10 11:27] LABS: HEMATOCRIT 37.1 % (36.0-47.0); HEMOGLOBIN 10.9 g/dl (12.0-15.5); MEAN CORPUSCULAR HEMOGLOBIN 27.4 pg (27.0-33.0); MEAN CORPUSCULAR HGB CONC 29.4 g/dl (32.0-36.5); MEAN CORPUSCULAR VOLUME 93.2 fl (80.0-96.0); PLATELET COUNT, AUTOMATED 283 10^3/uL (150-450); RED BLOOD COUNT 3.98 10^6/uL (4.00-5.40); WHITE BLOOD COUNT 7.7 10^3/uL (4.0-10.0)
[2019-06-10 11:34] LABS: BASO # 0.1 10^3/uL (0.0-0.2); BASO % 0.7 % (0.0-1.0); EOS # 0.2 10^3/uL (0.0-0.5); EOS % 3.1 % (0.0-3.0); LYMPH # 3.2 10^3/uL (1.5-5.0); MONO # 0.6 10^3/uL (0.0-0.8); NEUTROPHILS # 3.5 10^3/uL (1.5-8.5); NEUTROPHILS % 45.7 % (36.0-66.0)
[2019-06-10 12:07] LABS: ERYTHROCYTE SEDIMENTATION RATE 44 mm/hr (0-20)
[2019-06-10 12:10] LABS: ALBUMIN 3.5 GM/DL (3.2-5.2); ALT/SGPT 108 U/L (12-78); BILIRUBIN,TOTAL 0.4 MG/DL (0.2-1.0); BLOOD UREA NITROGEN 18 MG/DL (7-18); C REACTIVE PROTEIN QUANTITATIV 1.21 MG/DL (0.00-0.30); CARBON DIOXIDE LEVEL 25 MEQ/L (21-32); CHLORIDE LEVEL 107 MEQ/L (98-107); CREATININE FOR GFR 0.74 MG/DL (0.55-1.30); GLOMERULAR FILTRATION RATE > 60.0 (>58); GLUCOSE, FASTING 279 MG/DL (70-100); LDH LACTATE DEHYDROGENASE 196 U/L (84-246); POTASSIUM SERUM 4.4 MEQ/L (3.5-5.1); SODIUM LEVEL 140 MEQ/L (136-145); THYROID STIMULATING HORMONE 0.729 uIU/ML (0.358-3.740)
== END ==
LOC: M SFHCPLAZ 09:50
PROVIDERS: ATTEND Family Medicine
DX: R53.83 Other fatigue (principal)

== ENCOUNTER → 2019-07-08 | Outpatient (CLI) | payer OTHER ==
[~2019-07-08] MED LIST changes: +CYCL-707 PO; -CYCL10TA PO
--- NOTE | 2019-07-08 18:41 | REP ---
Clinical: Elevated liver function tests. Technique: Real time buenrostro scale ultrasound examination using curved array transducer. Findings: Liver demonstrates mild increased echotexture and decreased through transmission suggesting fatty infiltration. No focal hepatic lesion identified. Pancreas is normal. Evidence of prior cholecystectomy. Compensatory biliary ductal dilatation noted and the common bile duct measuring 12 mm diameter. The right kidney is normal in reniform shape without hydronephrosis and measures 12.2 x 5.3 x 4.7 cm. No ascites. Impression: 1. Mild hepatic steatosis suggested. Electronically Signed by Isidoro Jose MD 07/08/2019 06:32 P
== END ==
LOC: M RAD 08:49
PROVIDERS: ATTEND Family Medicine
DX: R74.8 Abnormal levels of other serum enzymes (principal); K76.89 Other specified diseases of liver

== ENCOUNTER 2019-07-23 10:48 | Emergency (ER) | payer OTHER ==
[~2019-07-23] VITALS: Ht 162.6 cm; Wt 95.3 kg
[2019-07-23] MEDS ORDERED: PRAZ5CAP PO (11:20)
[2019-07-23 11:33] LABS: BASO # 0.1 10^3/uL (0.0-0.2); BASO % 0.9 % (0.0-1.0); EOS # 0.3 10^3/uL (0.0-0.5); EOS % 3.5 % (0.0-3.0); HEMOGLOBIN 13.3 g/dl (12.0-15.5); LYMPH # 3.3 10^3/uL (1.5-5.0); LYMPH % 43.3 % (24.0-44.0); MEAN CORPUSCULAR HEMOGLOBIN 30.6 pg (27.0-33.0); MEAN CORPUSCULAR HGB CONC 31.7 g/dl (32.0-36.5); MEAN CORPUSCULAR VOLUME 96.6 fl (80.0-96.0); MONO # 0.7 10^3/uL (0.0-0.8); MONO % 8.8 % (0.0-5.0); NEUTROPHILS # 3.3 10^3/uL (1.5-8.5); NEUTROPHILS % 43.1 % (36.0-66.0); PLATELET COUNT, AUTOMATED 264 10^3/uL (150-450); RED BLOOD COUNT 4.35 10^6/uL (4.00-5.40); WHITE BLOOD COUNT 7.6 10^3/uL (4.0-10.0)
[2019-07-23] MEDS ORDERED: ONDANSETRON 4MG/2ML VIAL IV ONE (12:00)
[2019-07-23] MEDS ORDERED: NS 1,000 ML IV ONE (12:00)
[2019-07-23] MEDS ORDERED: MORPHINE 4 MG/ML 1ML VIAL/SYRINGE (J2270) IV ONE (12:00)
[2019-07-23 12:08] LABS: ALBUMIN 3.6 GM/DL (3.2-5.2); ALT/SGPT 124 U/L (12-78); BILIRUBIN,DIRECT < 0.1 MG/DL (0.0-0.2); BILIRUBIN,TOTAL 0.2 MG/DL (0.2-1.0); BLOOD UREA NITROGEN 10 MG/DL (7-18); CALCIUM LEVEL 9.2 MG/DL (8.5-10.1); CARBON DIOXIDE LEVEL 24 MEQ/L (21-32); CHLORIDE LEVEL 108 MEQ/L (98-107); CREATININE FOR GFR 0.75 MG/DL (0.55-1.30); GLOMERULAR FILTRATION RATE > 60.0 (>58); GLUCOSE, FASTING 163 MG/DL (70-100); LIPASE 161 U/L (73-393); POTASSIUM SERUM 3.6 MEQ/L (3.5-5.1); SODIUM LEVEL 140 MEQ/L (136-145); TOTAL PROTEIN 7.5 GM/DL (6.4-8.2)
[2019-07-23 12:10] LABS: HCG, SERUM QUALITATIVE NEGATIVE (NEGATIVE)
[2019-07-23] MEDS ORDERED: ONDA4TAB6 PO (14:10)
[2019-07-23 14:15] VITALS: BP 136/80
--- NOTE | 2019-07-23 15:48 | REP ---
RIGHT UPPER QUADRANT ULTRASOUND: Real-time sonographic evaluation of the right upper quadrant performed. The patient has had a prior cholecystectomy 2 years ago. There is expected prominence of the common bile duct 9 mm in diameter. There appears to be diffuse fatty infiltration of the liver with no gross mass. The visualized pancreas is grossly unremarkable, not optimally seen due to overlying bowel gas. Right kidney demonstrates no hydronephrosis with normal size 11.6 cm in length. No free fluid is seen. IMPRESSION: Status post cholecystectomy. Diffuse fatty infiltration of the liver. Electronically Signed by Emir Bangura MD 07/23/2019 04:03 P
== END 2019-07-23 14:28 | disposition home or self-care (01) ==
LOC: M ED 10:48
DX: R10.11 Right upper quadrant pain (principal); R11.2 Nausea with vomiting, unspecified; E11.9 Type 2 diabetes mellitus without complications; K76.0 Fatty (change of) liver, not elsewhere classified; J45.909 Unspecified asthma, uncomplicated; Z87.442 Personal history of urinary calculi; Z90.49 Acquired absence of other specified parts of digestive tract; Z88.8 Allergy status to other drugs, medicaments and biological substances; Z79.51 Long term (current) use of inhaled steroids; Z79.4 Long term (current) use of insulin; Z79.899 Other long term (current) drug therapy
CPT/HCPCS: 76705; 80048; 80076; 81001; 83690; 84703; 85025; 87086; 96361; 96374; 96375; 99284; J2270; J2405

== ENCOUNTER 2019-07-25 11:00 | Emergency (ER) | payer OTHER ==
[~2019-07-25] VITALS: Ht 162.6 cm; Wt 95.6 kg
[~2019-07-25 11:00] MED LIST changes: +PRAZ5CAP PO
[2019-07-25 11:41] LABS: BASO # 0.1 10^3/uL (0.0-0.2); BASO % 0.6 % (0.0-1.0); EOS # 0.2 10^3/uL (0.0-0.5); EOS % 1.9 % (0.0-3.0); HEMATOCRIT 44.7 % (36.0-47.0); HEMOGLOBIN 13.9 g/dl (12.0-15.5); LYMPH # 3.4 10^3/uL (1.5-5.0); LYMPH % 26.4 % (24.0-44.0); MEAN CORPUSCULAR HEMOGLOBIN 30.3 pg (27.0-33.0); MEAN CORPUSCULAR HGB CONC 31.1 g/dl (32.0-36.5); MEAN CORPUSCULAR VOLUME 97.6 fl (80.0-96.0); MONO % 7.8 % (0.0-5.0); NEUTROPHILS # 8.2 10^3/uL (1.5-8.5); NEUTROPHILS % 62.9 % (36.0-66.0); PLATELET COUNT, AUTOMATED 282 10^3/uL (150-450); RED BLOOD COUNT 4.58 10^6/uL (4.00-5.40); WHITE BLOOD COUNT 12.9 10^3/uL (4.0-10.0)
[2019-07-25] MEDS ORDERED: NS 1,000 ML IV ONE (11:45)
[2019-07-25] MEDS ORDERED: METOCLOPRAMIDE INJ 10MG/2ML VIAL (J2765 PER 1) IV ONE (11:45)
[2019-07-25 12:05] LABS: ALBUMIN 3.6 GM/DL (3.2-5.2); ALT/SGPT 111 U/L (12-78); BILIRUBIN,DIRECT < 0.1 MG/DL (0.0-0.2); BILIRUBIN,TOTAL 0.4 MG/DL (0.2-1.0); LIPASE 127 U/L (73-393); TOTAL PROTEIN 7.8 GM/DL (6.4-8.2)
[2019-07-25] MEDS: GASTROGRAFIN SOLUTION 30ML PO SCH ×2 (13:06→13:35)
[2019-07-25] MEDS ORDERED: ISOVUE-370 76% 100ML VIAL As Ordered ONE (14:17)
--- NOTE | 2019-07-25 15:33 | REP ---
REASON: Abdominal pain. The latest prior for comparison is 09/05/2018, however, I have been informed that there are more recent priors in [place], [place]. Secondary to the emergent nature of interpretation of this exam, it will be interpreted without the benefit of the most recent priors for comparison. CONTRAST: 100 mL Isovue-370. Lung bases are clear. The liver, spleen, pancreas, adrenal glands, and kidneys are within normal limits. The abdominal aorta and para-aortic regions are within normal limits. There is no free fluid or free air. The bowel loops and their mesenteries are within normal limits. CT PELVIS: In the left adnexa, there is a mixed density, complex-appearing 4.1-cm sized structure probably of ovarian origin. There is no free fluid or free air. The bowel loops are unremarkable. The osseous structures are within normal limits. IMPRESSION: Suspect left ovarian hemorrhagic cyst. Electronically Signed by Emeterio Karimi DO 07/25/2019 03:39 P
[2019-07-25] MEDS ORDERED: PRAZ1CAP PO (16:58)
[2019-07-25] MEDS ORDERED: TRAM50TA2 PO (17:11)
[2019-07-25 17:15] VITALS: BP 147/86
--- NOTE | 2019-07-25 22:57 | REP ---
REASON: Left-sided pain. Transvesical imaging only was obtained. The uterus measures 11.2 x 3.9 x 5.2 cm. The parenchymal echo pattern is within normal limits. The endometrial echo complex measures 9 mm in its greatest thickness. Right ovary measures 3.2 x 2.1 x 2.2 cm and is within normal limits with an RI of 0.7. Left ovary measures 5.4 x 4.3 x 3.9 cm. Within the left ovary, there is a 2.7 x 2.1 x 1.9 cm sized hypoechoic structure exhibiting some posterior wall enhancement and increased through transmission. The left ovarian RI is 0.54. Urinary bladder measures 10 x 7 x 8 cm. IMPRESSION: Probable, somewhat complex appearing, left ovarian cyst. Hemorrhagic cyst is likely. Transvaginal imaging would give further detail. The reason why transvaginal imaging was not obtained today is unknown to me. Electronically Signed by Emeterio Karimi DO 07/26/2019 08:27 A
--- NOTE | 2019-07-26 16:40 | ECGEPIP ---
[facility] - ED Test Date: 2019-07-25 Pat Name: PATY CRYSTAL Department: Room: - Gender: Female Manager Consumer: ct : 1970 Requested By: Dale Cleveland Order Number: [id number] Reading MD: Debby Schroeder Measurements Intervals [place] Rate: 129 P: 57 HI: 167 QRS: 4 QRSD: 92 T: 22 QT: 302 QTc: 443 Interpretive Statements PROBABLE SINUS TACHYCARDIA NONSPECIFIC T-WAVE ABNORMALITY ABNORMAL RHYTHM ECG baseline artifact may affect interpretation Electronically Signed on 07-26-2019 16:39:40 EDT by Debby Schroeder
== END 2019-07-25 17:31 | disposition home or self-care (01) ==
LOC: M ED 11:00
DX: N83.292 Other ovarian cyst, left side (principal); R11.2 Nausea with vomiting, unspecified; E11.9 Type 2 diabetes mellitus without complications; I10 Essential (primary) hypertension; Z88.8 Allergy status to other drugs, medicaments and biological substances; Z87.891 Personal history of nicotine dependence
CPT/HCPCS: 74177; 76856; 80047; 80076; 83605; 83690; 85025; 93005; 93041; 93976; 96361; 96374; 99285; J2765; Q9963; Q9967

== ENCOUNTER 2019-08-02 16:37 | Emergency (ER) | payer OTHER ==
[~2019-08-02] VITALS: Ht 162.6 cm; Wt 94.5 kg
[~2019-08-02 16:37] MED LIST changes: +TRAM50TA2 PO
[2019-08-02] MEDS ORDERED: BASA100I SC (16:57)
[2019-08-02] MEDS ORDERED: NS 1,000 ML IV ONE (17:15)
[2019-08-02 17:35] LABS: GLUCOSE, URINE (UA) MANUAL 4+(1000 MG/DL) mg/dL (NEGATIVE); KETONE, URINE MANUAL NEGATIVE (NEGATIVE)
[2019-08-02 17:36] LABS: BILIRUBIN, URINE MANUAL 1+ (NEGATIVE); UROBILINOGEN, URINE MANUAL NORMAL (NORMAL)
[2019-08-02 17:38] LABS: BACTERIA, URINE NONE SEEN; HYALINE CAST, URINE NONE SEEN /lpf (0-1); RBC, URINE TNTC /hpf (0-3); SQUAMOUS EPITHELIAL CELL URINE NONE SEEN /hpf (SMALL AMT)
[2019-08-02 18:07] LABS: BASO # 0.1 10^3/uL (0.0-0.2); BASO % 0.8 % (0.0-1.0); EOS # 0.3 10^3/uL (0.0-0.5); EOS % 3.1 % (0.0-3.0); HEMATOCRIT 39.3 % (36.0-47.0); HEMOGLOBIN 12.5 g/dl (12.0-15.5); LYMPH # 3.5 10^3/uL (1.5-5.0); LYMPH % 36.1 % (24.0-44.0); MEAN CORPUSCULAR HEMOGLOBIN 30.6 pg (27.0-33.0); MEAN CORPUSCULAR HGB CONC 31.8 g/dl (32.0-36.5); MEAN CORPUSCULAR VOLUME 96.1 fl (80.0-96.0); MONO # 0.8 10^3/uL (0.0-0.8); NEUTROPHILS % 51.6 % (36.0-66.0); PLATELET COUNT, AUTOMATED 260 10^3/uL (150-450); RED BLOOD COUNT 4.09 10^6/uL (4.00-5.40); WHITE BLOOD COUNT 9.7 10^3/uL (4.0-10.0)
[2019-08-02 18:34] LABS: BLOOD UREA NITROGEN 17 MG/DL (7-18); CALCIUM LEVEL 8.4 MG/DL (8.5-10.1); CARBON DIOXIDE LEVEL 22 MEQ/L (21-32); CHLORIDE LEVEL 106 MEQ/L (98-107); CREATININE FOR GFR 0.76 MG/DL (0.55-1.30); GLOMERULAR FILTRATION RATE > 60.0 (>58); GLUCOSE, FASTING 292 MG/DL (70-100); POTASSIUM SERUM 3.7 MEQ/L (3.5-5.1); SODIUM LEVEL 137 MEQ/L (136-145)
--- NOTE | 2019-08-02 18:57 | REPVR ---
PROCEDURE INFORMATION: Exam: US Pelvis Complete, Transabdominal and US Pelvis, Transvaginal Exam date and time: 08/02/2019 6:16 PM Age: 48 years old Clinical indication: Pelvic pain; Additional info: HX of ovarian cyst with increased pain TECHNIQUE: Imaging protocol: Real-time transabdominal and transvaginal pelvic ultrasound (complete) with image documentation. Transvaginal imaging was used for better evaluation of the endometrium and adnexa. COMPARISON: US PELVIC NON-OB COMPLETE 07/25/2019 3:38 PM FINDINGS: Uterus/cervix: The uterus measures 10.5 x 4.4 x 5.1 cm. The endometrium measures up to 8 mm in width but is poorly visualized. Right adnexa: The right ovary measures 4.8 by 3.0 x 2.4 cm. Arterial and venous flow is detected with resistive index of 0.4. There is a small cystic structure measuring 2.4 x 2.0 x 1.8 cm. Left adnexa: The left ovary measures 4.4 x 2.9 x 3.5 cm. Arterial and venous flow is detected with resistive index of 0.6 Free fluid: None. Bladder: The urinary bladder is nearly empty and not well assessed. IMPRESSION: 1. The endometrial bilayer was measured at 8 mm however it is quite difficult to visualize in this may be inaccurate however if patient is postmenopausal and not on hormone replacement therapy this is thickened. 2. There is a probable small cyst in the right ovary measuring 2.4 x 2.0 x 1.8 cm. No cyst is seen in the left ovary which was only visualized transabdominally. The cyst seen at time of prior imaging was not detected. 3. No significant findings other than thickening of the endometrium. Electronically signed by: Carolann Arambula On 08/02/2019 18:56:57 PM
[2019-08-02 19:18] VITALS: BP 175/92
--- NOTE | 2019-08-04 12:27 | ED PDOC ---
Post-Departure Follow-Up dr garcia and iván burnett faxed formal report of pelvic us for fu Kiak Villela MD August 04, 2019 12:27
== END 2019-08-02 19:19 | disposition home or self-care (01) ==
LOC: M ED 16:37
DX: N92.0 Excessive and frequent menstruation with regular cycle (principal); N83.201 Unspecified ovarian cyst, right side; E11.9 Type 2 diabetes mellitus without complications; E03.9 Hypothyroidism, unspecified; E88.01 Alpha-1-antitrypsin deficiency; M79.7 Fibromyalgia; F43.10 Post-traumatic stress disorder, unspecified; F41.9 Anxiety disorder, unspecified; K76.0 Fatty (change of) liver, not elsewhere classified; M51.9 Unspecified thoracic, thoracolumbar and lumbosacral intervertebral disc disorder; Z88.8 Allergy status to other drugs, medicaments and biological substances; Z79.899 Other long term (current) drug therapy; Z79.4 Long term (current) use of insulin; Z79.01 Long term (current) use of anticoagulants

== ENCOUNTER 2019-09-13 07:52 | Emergency (ER) | payer OTHER ==
[~2019-09-13] VITALS: Ht 162.6 cm; Wt 95.5 kg
[~2019-09-13 07:52] MED LIST changes: -AMLO10TA5 PO; +AMLO1TAB24 PO; +AMLO1TAB25 PO; -AMLO5TAB6 PO
[2019-09-13] MEDS ORDERED: ACETAMINOPHEN 500 MG TAB PO ONE (08:30)
--- NOTE | 2019-09-13 09:20 | REP ---
Head CT without contrast: History: Injury in a fall Comparison study: November 05, 2018 CT findings: Bone window settings demonstrate an intact bony calvarium. There is no evidence of skull fracture or incidental bony calvarial lesion. The visualized paranasal sinuses appear clear. No intraorbital abnormality is seen. On soft tissue window setting images; the lateral, third, and fourth ventricles are normal in size and position. Bangura-white differentiation pattern is normal above and below the tentorium. There are is no evidence of intracranial hemorrhage. No mass, edema, infarction, or midline shift is seen. No extra-axial fluid collection is appreciated. Impression: Negative noncontrast head CT. Electronically Signed by Emil Booker MD 09/13/2019 09:12 A
--- NOTE | 2019-09-13 09:23 | REP ---
CT study of the cervical spine without contrast: History: Injury in a fall. Technique: Helical scanning is acquired and overlapping 2 mm high resolution axial images were generated and reviewed at bone and soft tissue window settings. Coronal and sagittal multiplanar re-formations images are generated. CT findings: There is some straightening. A dextroconvex curvature is seen on coronal MPR images. There is no evidence of cervical spine element fracture. No skull base fracture is seen. Cervical vertebral body heights are preserved. Alignment is normal. Facet joints are normally aligned bilaterally at each cervical level on multiplanar re-formations images. There is no evidence of intraspinal or paraspinal hematoma. No extra vertebral abnormality is seen. Impression: Negative CT study of the cervical spine without contrast. No fracture seen. Electronically Signed by Emil Booker MD 09/13/2019 09:14 A
--- NOTE | 2019-09-13 10:12 | REP ---
Clinical: Trauma. Fall. Technique: AP, lateral, bilateral oblique views right ankle . Findings: No acute fracture or dislocation. Skeletal structures and joint spaces are intact and normal. Ankle mortise appears stable. No subcutaneous emphysema or radiodense foreign body. Impression: No acute fracture dislocation. Electronically Signed by Isidoro Jose MD 09/13/2019 10:03 A
--- NOTE | 2019-09-13 10:14 | REP ---
Clinical: trauma Technique: Internal rotation, external rotation, and Y view right shoulder. Findings: No acute fracture or dislocation. The acromioclavicular and glenohumeral joints are intact. No periarticular calcifications or degenerative changes are appreciated. Sub acromial space is normal. Surrounding soft tissues are unremarkable. Impression: Normal right shoulder radiographs. Electronically Signed by Isidoro Jose MD 09/13/2019 10:05 A
--- NOTE | 2019-09-13 10:16 | REP ---
Clinical: Trauma. Technique: AP, lateral, bilateral oblique views right hand . Findings: The osseous structures and joint spaces are intact and normal. There is no evidence for acute fracture or dislocation. Surrounding soft tissues are unremarkable. No subcutaneous emphysema or radiodense foreign body. Impression: No acute fracture or dislocation. Electronically Signed by Isidoro Jose MD 09/13/2019 10:08 A
--- NOTE | 2019-09-13 10:18 | REP ---
Clinical: Trauma. Technique: AP, lateral, bilateral oblique and sunrise views right knee . Findings: Age-related changes are appreciated. Prepatellar soft tissue swelling and possible small suprapatellar effusion cannot be excluded. No obvious acute fracture or dislocation. Impression: Possible prepatellar swelling and small suprapatellar effusion. No acute fracture or dislocation. Electronically Signed by Isidoro Jose MD 09/13/2019 10:09 A
--- NOTE | 2019-09-13 10:19 | REP ---
Clinical: Trauma. Technique: Frontal view of the pelvis with neutral and frog lateral views of the right hip. Findings: Osseous structures and joint spaces are intact and normal. Hip joints appear symmetric on frontal pelvic radiograph. No acute fracture dislocation. No evidence for healed injury. Surrounding soft tissues are unremarkable. Impression: No acute fracture or dislocation appreciated. Electronically Signed by Isidoro Jose MD 09/13/2019 10:10 A
--- NOTE | 2019-09-13 10:47 | REP ---
Right elbow: Four views. History: Injury in a fall. Findings: Four views right elbow demonstrate normal bones, joints and soft tissues. No fracture or subluxation is seen. There is mild coronoid process spurring. No evidence of joint effusion. Impression: No traumatic abnormality noted. Mild coronoid process spurring. Electronically Signed by Emil Booker MD 09/13/2019 10:39 A
[2019-09-13 12:23] VITALS: BP 144/95
== END 2019-09-13 12:24 | disposition home or self-care (01) ==
LOC: M ED 07:52
DX: S16.1XXA Strain of muscle, fascia and tendon at neck level, initial encounter (principal); S40.011A Contusion of right shoulder, initial encounter; S50.01XA Contusion of right elbow, initial encounter; S60.221A Contusion of right hand, initial encounter; S70.01XA Contusion of right hip, initial encounter; S80.01XA Contusion of right knee, initial encounter; S90.01XA Contusion of right ankle, initial encounter; M25.461 Effusion, right knee; W10.9XXA Fall (on) (from) unspecified stairs and steps, initial encounter; Y92.099 Unspecified place in other non-institutional residence as the place of occurrence of the external cause; Y93.9 Activity, unspecified; Y99.9 Unspecified external cause status; E11.40 Type 2 diabetes mellitus with diabetic neuropathy, unspecified; I50.9 Heart failure, unspecified; G43.909 Migraine, unspecified, not intractable, without status migrainosus; I10 Essential (primary) hypertension; E78.5 Hyperlipidemia, unspecified; J45.909 Unspecified asthma, uncomplicated; J44.9 Chronic obstructive pulmonary disease, unspecified; K76.0 Fatty (change of) liver, not elsewhere classified; F43.10 Post-traumatic stress disorder, unspecified; F41.9 Anxiety disorder, unspecified; F32.9 Major depressive disorder, single episode, unspecified; Z87.891 Personal history of nicotine dependence; Z79.01 Long term (current) use of anticoagulants; Z79.4 Long term (current) use of insulin; Z79.899 Other long term (current) drug therapy; Z88.8 Allergy status to other drugs, medicaments and biological substances

== ENCOUNTER 2019-09-18 18:56 | Emergency (ER) | payer OTHER ==
[~2019-09-18] VITALS: Ht 162.6 cm; Wt 95.5 kg
[~2019-09-18 18:56] MED LIST changes: +AMLO10TA5 PO; -AMLO1TAB24 PO; -AMLO1TAB25 PO; +AMLO5TAB6 PO
[2019-09-18] MEDS ORDERED: NS 1,000 ML IV ONE (19:15)
[2019-09-18 19:50] LABS: BASO # 0.1 10^3/uL (0.0-0.2); BASO % 0.6 % (0.0-1.0); EOS # 0.5 10^3/uL (0.0-0.5); EOS % 4.5 % (0.0-3.0); HEMATOCRIT 40.3 % (36.0-47.0); HEMOGLOBIN 12.5 g/dl (12.0-15.5); LYMPH # 3.5 10^3/uL (1.5-5.0); LYMPH % 35.5 % (24.0-44.0); MEAN CORPUSCULAR VOLUME 103.1 fl (80.0-96.0); MONO % 9.8 % (0.0-5.0); NEUTROPHILS # 4.9 10^3/uL (1.5-8.5); NEUTROPHILS % 49.3 % (36.0-66.0); PLATELET COUNT, AUTOMATED 239 10^3/uL (150-450); RED BLOOD COUNT 3.91 10^6/uL (4.00-5.40)
[2019-09-18 20:01] LABS: INR 1.07; PROTHROMBIN TIME 13.6 SECONDS (11.8-14.0)
[2019-09-18 20:02] LABS: PARTIAL THROMBOPLASTIN TIME 30.4 SECONDS (25.0-38.4)
--- NOTE | 2019-09-18 20:09 | REPVR ---
PROCEDURE INFORMATION: Exam: CT Head Without Contrast Exam date and time: 09/18/2019 7:47 PM Age: 48 years old Clinical indication: Injury or trauma; Fall; Initial encounter; Blunt trauma (contusions or hematomas); Additional info: Fall on 09/12 with increase in fatigue and confusion TECHNIQUE: Imaging protocol: Computed tomography of the head without contrast. Radiation optimization: All CT scans at this facility use at least one of these dose optimization techniques: automated exposure control; mA and/or kV adjustment per patient size (includes targeted exams where dose is matched to clinical indication); or iterative reconstruction. COMPARISON: CT Head without contrast 09/13/2019 8:43 AM FINDINGS: Brain: Normal. No hemorrhage. Unremarkable white matter. No mass effect. Ventricles: Normal. No ventriculomegaly. Bones/joints: There is hyperostosis frontalis interna. Sinuses: Visualized sinuses are unremarkable. No fluid levels. Mastoid air cells: Visualized mastoid air cells are well aerated. Soft tissues: Unremarkable. IMPRESSION: No acute intracranial findings. Electronically signed by: Arnie Ayala On 09/18/2019 20:09:20 PM
[2019-09-18 20:12] LABS: AMPHETAMINES LEVEL URINE NEGATIVE (NEGATIVE); BARBITURATES URINE NEGATIVE (NEGATIVE); BENZODIAZEPINES URINE NEGATIVE (NEGATIVE); CANNABINOIDS URINE NEGATIVE (NEGATIVE); COCAINE METABOLITE URINE NEGATIVE (NEGATIVE); METHADONE URINE NEGATIVE (NEGATIVE); OPIATES URINE NEGATIVE (NEGATIVE); PHENCYCLIDINE URINE NEGATIVE (NEGATIVE)
[2019-09-18 20:23] LABS: BLOOD UREA NITROGEN 17 MG/DL (7-18); CALCIUM LEVEL 9.5 MG/DL (8.5-10.1); CARBON DIOXIDE LEVEL 28 MEQ/L (21-32); CHLORIDE LEVEL 106 MEQ/L (98-107); CK-MB VALUE MASS 1.1 NG/ML (<3.6); CPK CREATINE PHOSPHOKINASE 74 U/L (26-192); CREATININE FOR GFR 0.97 MG/DL (0.55-1.30); ETHYL ALCOHOL (ETHANOL) < 0.003 % (0.000-0.010); FREE T4 1.16 NG/DL (0.76-1.46); GLOMERULAR FILTRATION RATE > 60.0 (>58); GLUCOSE, FASTING 195 MG/DL (70-100); MAGNESIUM LEVEL 1.7 MG/DL (1.8-2.4); MB/CK RELATIVE INDEX 1.49 (< OR =4); POTASSIUM SERUM 3.5 MEQ/L (3.5-5.1); SODIUM LEVEL 143 MEQ/L (136-145); TROPONIN I < 0.02 NG/ML (< 0.10)
[2019-09-18 21:11] VITALS: BP 132/84
--- NOTE | 2019-09-19 06:57 | ECGEPIP ---
[facility] - ED Test Date: 2019-09-18 Pat Name: PATY CRYSTAL Department: Room: - Gender: Female Flatbed Stitcher: babs : 1970 Requested By: PATY HERCULES Order Number: [id number] Reading MD: Debby Schroeder Measurements Intervals [place] Rate: 65 P: 20 [place]: 193 QRS: -6 QRSD: 103 T: 19 QT: 416 QTc: 434 Interpretive Statements SINUS RHYTHM NSTTW abnormalities DELAYED R PROGRESSION DECREASED RATE 07/25/19 Electronically Signed on 09-19-2019 6:57:32 EDT by Debby Schroeder
== END 2019-09-18 21:13 | disposition home or self-care (01) ==
LOC: M ED 18:56
DX: R53.82 Chronic fatigue, unspecified (principal); D64.9 Anemia, unspecified; E11.9 Type 2 diabetes mellitus without complications; I10 Essential (primary) hypertension; E03.9 Hypothyroidism, unspecified; K74.60 Unspecified cirrhosis of liver; Z86.718 Personal history of other venous thrombosis and embolism; Z79.01 Long term (current) use of anticoagulants; Z79.4 Long term (current) use of insulin; Z79.899 Other long term (current) drug therapy; Z88.8 Allergy status to other drugs, medicaments and biological substances
CPT/HCPCS: 70450; 80048; 80307; 81001; 82550; 82553; 83735; 84439; 84443; 85025; 85610; 85730; 87086; 93005; 96360; 99284; G0480

== ENCOUNTER 2019-11-16 16:04 | Emergency (ER) | payer OTHER ==
[~2019-11-16] VITALS: Ht 162.6 cm; Wt 95.7 kg
[~2019-11-16 16:04] MED LIST changes: -AMLO10TA5 PO; +AMLO1TAB24 PO; +AMLO1TAB25 PO; -AMLO5TAB6 PO
[2019-11-16] MEDS ORDERED: HYDR-4571 (16:20)
[2019-11-16] MEDS ORDERED: CEPH500C (16:20)
[2019-11-16] MEDS ORDERED: TAMS1CAP17 PO (16:20)
[2019-11-16] MEDS ORDERED: PRAZ2CAP (16:20)
[2019-11-16] MEDS ORDERED: NS 1,000 ML IV ONE (17:45)
[2019-11-16 18:33] LABS: BASO # 0.1 10^3/uL (0.0-0.2); EOS # 0.3 10^3/uL (0.0-0.5); EOS % 3.3 % (0.0-3.0); HEMOGLOBIN 13.6 g/dl (12.0-15.5); LYMPH # 3.3 10^3/uL (1.5-5.0); LYMPH % 34.9 % (24.0-44.0); MEAN CORPUSCULAR HEMOGLOBIN 33.3 pg (27.0-33.0); MEAN CORPUSCULAR HGB CONC 32.4 g/dl (32.0-36.5); MEAN CORPUSCULAR VOLUME 102.9 fl (80.0-96.0); MONO # 0.8 10^3/uL (0.0-0.8); MONO % 8.9 % (0.0-5.0); NEUTROPHILS # 4.8 10^3/uL (1.5-8.5); NEUTROPHILS % 51.1 % (36.0-66.0); PLATELET COUNT, AUTOMATED 238 10^3/uL (150-450); RED BLOOD COUNT 4.08 10^6/uL (4.00-5.40); WHITE BLOOD COUNT 9.4 10^3/uL (4.0-10.0)
--- NOTE | 2019-11-16 18:48 | REPVR ---
PROCEDURE INFORMATION: Exam: CT Abdomen And Pelvis Without Contrast Exam date and time: 11/16/2019 6:18 PM Age: 49 years old Clinical indication: Abdominal pain; Additional info: B/l flank pain, h/o kidney stones TECHNIQUE: Imaging protocol: Computed tomography of the abdomen and pelvis without contrast. Axial, coronal and sagittal reformatted images were created and reviewed. Radiation optimization: All CT scans at this facility use at least one of these dose optimization techniques: automated exposure control; mA and/or kV adjustment per patient size (includes targeted exams where dose is matched to clinical indication); or iterative reconstruction. COMPARISON: CT ABD/PEL W/IV ORAL CONTRAS 07/25/2019 2:24 PM FINDINGS: Liver: Mild hepatomegaly. Gallbladder and bile ducts: Status post cholecystectomy. No biliary ductal dilatation. Pancreas: Unremarkable. Spleen: Unremarkable. Adrenals: Unremarkable. Kidneys and ureters: Nonobstructing bilateral renal calculi. No hydronephrosis. Stomach and bowel: No bowel wall thickening. No obstruction. No pneumatosis. Appendix: Status post appendectomy. Intraperitoneal space: No free fluid. No organized fluid collection. No free air. Vasculature: Mild atherosclerotic disease. No aneurysm. Lymph nodes: No pathologically enlarged lymph nodes. Bladder: Decompressed urinary bladder, which limits evaluation for wall thickening. Reproductive: Unremarkable. Bones/joints: No acute osseous abnormality. Mild degenerative changes. Avascular necrosis of the femoral heads. Probable ghost tract from prior orthopedic hardware versus benign appearing lucency in the left proximal Soft tissues: Small, fat containing umbilical hernia. IMPRESSION: 1. Limited noncontrast examination without CT evidence of acute intra-abdominal or pelvic pathology. 2. Additional findings, as above. Electronically signed by: Zbigniew Garibay On 11/16/2019 18:47:29 PM
[2019-11-16 19:03] LABS: ALBUMIN 3.5 GM/DL (3.2-5.2); BILIRUBIN,DIRECT 0.1 MG/DL (0.0-0.2); BILIRUBIN,TOTAL 0.3 MG/DL (0.2-1.0); TOTAL PROTEIN 7.2 GM/DL (6.4-8.2)
[2019-11-16] MEDS ORDERED: MORPHINE 4 MG/ML 1ML VIAL/SYRINGE (J2270) IV ONE (20:30)
[2019-11-16] MEDS ORDERED: ONDANSETRON 4MG/2ML VIAL IV ONE (20:30)
[2019-11-16 21:28] VITALS: BP 152/102
== END 2019-11-16 21:58 | disposition home or self-care (01) ==
LOC: M ED 16:04
DX: E11.65 Type 2 diabetes mellitus with hyperglycemia (principal); N20.0 Calculus of kidney; R74.0 Nonspecific elevation of levels of transaminase and lactic acid dehydrogenase [LDH]; R10.9 Unspecified abdominal pain; I10 Essential (primary) hypertension; K76.0 Fatty (change of) liver, not elsewhere classified; E03.9 Hypothyroidism, unspecified; J45.909 Unspecified asthma, uncomplicated; J44.9 Chronic obstructive pulmonary disease, unspecified; K21.9 Gastro-esophageal reflux disease without esophagitis; G47.33 Obstructive sleep apnea (adult) (pediatric); F41.9 Anxiety disorder, unspecified; F32.9 Major depressive disorder, single episode, unspecified; F43.10 Post-traumatic stress disorder, unspecified; Z86.711 Personal history of pulmonary embolism; Z87.448 Personal history of other diseases of urinary system; Z87.891 Personal history of nicotine dependence; Z79.01 Long term (current) use of anticoagulants; Z79.4 Long term (current) use of insulin; Z79.899 Other long term (current) drug therapy; Z88.5 Allergy status to narcotic agent; Z88.8 Allergy status to other drugs, medicaments and biological substances
CPT/HCPCS: 74176; 80047; 80076; 81001; 83690; 85025; 96361; 96374; 96375; 99284; J2270; J2405

== ENCOUNTER → 2019-11-29 | Outpatient (REF) | payer OTHER ==
[~2019-11-29] MED LIST changes: +CEPH500C; +HYDR-4571; +PRAZ2CAP; +TAMS1CAP17 PO
== END ==
LOC: M SFHCLERA 16:02
PROVIDERS: ATTEND Family Medicine
DX: R30.0 Dysuria (principal)

== ENCOUNTER 2019-12-04 16:50 | Inpatient (IN) | payer OTHER ==
[~2019-12-04] VITALS: Ht 162.6 cm; Wt 96.5 kg
--- NOTE | 2019-12-04 17:35 | REPVR ---
PROCEDURE INFORMATION: Exam: XR Chest, 2 Views Exam date and time: 12/04/2019 5:29 PM Age: 49 years old Clinical indication: Other: Cp; Additional info: Chest pain TECHNIQUE: Imaging protocol: XR of the chest Views: 2 views. COMPARISON: FL PORTABLE CHEST X-RAY 05/19/2019 5:50 PM FINDINGS: Lungs: Unremarkable. No consolidation. Pleural space: Unremarkable. No pleural effusion. No pneumothorax. Heart/Mediastinum: Unremarkable. No cardiomegaly. Bones/joints: Unremarkable. IMPRESSION: No acute findings. Electronically signed by: Arnie Ayala On 12/04/2019 17:35:28 PM
[2019-12-04] MEDS: NITROGLYCERIN 0.4 MG SUBL TABLET SL PRN ×3 (17:57→18:13)
[2019-12-04 18:22] LABS: BASO # 0.1 10^3/uL (0.0-0.2); BASO % 0.9 % (0.0-1.0); EOS # 0.3 10^3/uL (0.0-0.5); EOS % 3.1 % (0.0-3.0); HEMATOCRIT 42.2 % (36.0-47.0); HEMOGLOBIN 13.6 g/dl (12.0-15.5); LYMPH # 3.7 10^3/uL (1.5-5.0); LYMPH % 41.8 % (24.0-44.0); MEAN CORPUSCULAR HEMOGLOBIN 33.2 pg (27.0-33.0); MEAN CORPUSCULAR HGB CONC 32.2 g/dl (32.0-36.5); MEAN CORPUSCULAR VOLUME 102.9 fl (80.0-96.0); MONO # 0.8 10^3/uL (0.0-0.8); NEUTROPHILS # 3.9 10^3/uL (1.5-8.5); NEUTROPHILS % 44.7 % (36.0-66.0); PLATELET COUNT, AUTOMATED 243 10^3/uL (150-450); WHITE BLOOD COUNT 8.8 10^3/uL (4.0-10.0)
[2019-12-04 18:35] LABS: INR 1.03; PROTHROMBIN TIME 13.8 SECONDS (12.5-14.3)
[2019-12-04 18:36] LABS: PARTIAL THROMBOPLASTIN TIME 29.1 SECONDS (24.2-38.5)
[2019-12-04 18:40] LABS: D-DIMER QUANT < 270 ng/ml (<500)
[2019-12-04 19:16] LABS: ALBUMIN 3.8 GM/DL (3.2-5.2); ALT/SGPT 209 U/L (12-78); BILIRUBIN,DIRECT 0.1 MG/DL (0.0-0.2); BILIRUBIN,TOTAL 0.2 MG/DL (0.2-1.0); BLOOD UREA NITROGEN 19 MG/DL (7-18); CARBON DIOXIDE LEVEL 28 MEQ/L (21-32); CHLORIDE LEVEL 108 MEQ/L (98-107); CK-MB VALUE MASS < 1.0 NG/ML (<3.6); CPK CREATINE PHOSPHOKINASE 61 U/L (26-192); CREATININE FOR GFR 0.72 MG/DL (0.55-1.30); FREE T4 0.92 NG/DL (0.76-1.46); GLOMERULAR FILTRATION RATE > 60.0 (>58); GLUCOSE, FASTING 201 MG/DL (70-100); LIPASE 1188 U/L (73-393); MB/CK RELATIVE INDEX 1.64 (< OR =4); POTASSIUM SERUM 3.8 MEQ/L (3.5-5.1); SODIUM LEVEL 140 MEQ/L (136-145); THYROID STIMULATING HORMONE 0.746 uIU/ML (0.358-3.740); TOTAL PROTEIN 7.5 GM/DL (6.4-8.2); TROPONIN I < 0.02 NG/ML (< 0.10)
[2019-12-04] MEDS ORDERED: ISOVUE-370 76% 100ML VIAL As Ordered ONE (19:54)
[2019-12-04] MEDS ORDERED: MORPHINE 4 MG/ML 1ML VIAL/SYRINGE (J2270) IV ONE (20:30)
[2019-12-04] MEDS ORDERED: ONDANSETRON 4MG/2ML VIAL IV ONE (20:30)
--- NOTE | 2019-12-04 20:41 | REPVR ---
PROCEDURE INFORMATION: Exam: CT Abdomen And Pelvis With Contrast Exam date and time: 12/04/2019 8:15 PM Age: 49 years old Clinical indication: Abdominal pain; Additional info: Upper abd pain elevated lipase TECHNIQUE: Imaging protocol: Computed tomography of the abdomen and pelvis with intravenous contrast. Radiation optimization: All CT scans at this facility use at least one of these dose optimization techniques: automated exposure control; mA and/or kV adjustment per patient size (includes targeted exams where dose is matched to clinical indication); or iterative reconstruction. Contrast material: ISOVUE 370; Contrast volume: 100 ml; Contrast route: INTRAVENOUS (IV); COMPARISON: CT ABD PELVIS W/O CONTRAST 11/16/2019 6:14 PM FINDINGS: Liver: There is a diffuse decrease in hepatic parenchymal density, consistent with steatosis. Gallbladder and bile ducts: There has been a cholecystectomy. Pancreas: Normal. No ductal dilation. Spleen: Normal. No splenomegaly. Adrenals: Normal. No mass. Kidneys and ureters: Normal. No hydronephrosis. Stomach and bowel: There is increased feces throughout the colon consistent with constipation. Appendix: There has been an appendectomy. Intraperitoneal space: Unremarkable. No free air. No significant fluid collection. Vasculature: The aortoiliac vessels demonstrate mild atherosclerotic calcification. Lymph nodes: Unremarkable. No enlarged lymph nodes. Bladder: Diffuse thickening of the bladder wall likely related to incomplete distention. Clinical correlation to exclude cystitis suggested. Reproductive: Unremarkable as visualized. Bones/joints: Unremarkable. No acute fracture. Soft tissues: Unremarkable. IMPRESSION: 1. There is a diffuse decrease in hepatic parenchymal density, consistent with steatosis. 2. There has been a cholecystectomy. 3. There is increased feces throughout the colon consistent with constipation. 4. Diffuse thickening of the bladder wall likely related to incomplete distention. Clinical correlation to exclude cystitis suggested. Electronically signed by: Arnie Ayala On 12/04/2019 20:41:13 PM
[2019-12-04] MEDS ORDERED: DEXTROSE 50% 50 ML SYRINGE IV PRN (21:30)
[2019-12-04] MEDS ORDERED: GLUCOSE 4GM CHEW TABLET PO PRN (21:30)
[2019-12-04] MEDS ORDERED: GLUCAGON INJ 1MG VIAL SC PRN (21:30)
[2019-12-04] MEDS ORDERED: TRAM50TA2 PO (22:03)
[2019-12-04] MEDS ORDERED: ONDA4TAB6 PO (22:08)
[2019-12-04] MEDS: MORPHINE 2 MG/ML 1ML VIAL (J2270) IV PRN (22:17)
[2019-12-04] MEDS ORDERED: ALBUTEROL 90 MCG/ACT 8GM HFA INHALER INH PRN (23:00)
[2019-12-04] MEDS ORDERED: TRIAMCINOLONE ACET 0.1% CREAM 15 GM TOP PRN (23:00)
[2019-12-04] MEDS ORDERED: IPRATROPIUM 0.5MG/ALBUTEROL 2.5MG INH SOL UD 3ML (DUONEB) NEB PRN (23:00)
[2019-12-04] MEDS ORDERED: POLYVINYL ALCOHOL OPHTH SOLN 15 ML(LIQUITEARS) OU PRN (23:00)
--- NOTE | 2019-12-04 23:16 | HPEPDOC ---
[facility] Medical History & Physical Date of Admission Dec 04, 2019 Date of Service: Dec 04, 2019 Attending Physician: DANI MENDENHALL MD History and Physical CHIEF COMPLAINT: chest pain, epigastric pain HISTORY OF PRESENT ILLNESS: 49-year-old W with a history of alpha-1 antitrypsin deficiency, unprovoked PE on eliquis, IDDM, prior history of pancreatitis, history of non obstructive renal c alculi, who presents with worsening of chest/epigastric pain radiating to the back that began with nausea a few days ago and developed into ha pain over the last 24h. Today it has been associated with non bloody emesis and intolerance of PO. She therefore presented to the ED where she initially c omplained of chest pain but later referred to it as epigastric and radiating to the back. She denied fevers, chills, diarrhea, constipation, blood in her emesis or stool, recent weight loss, shortness of breath or cough. While in the ED, she was hemodynamically stable and afebrile but uncomfortable in moderate distress. She initially received sublingual nitro without much improvement and later zofran and morphine with improvement of her pain. Workup revealed WBC 8.8, hgb 13.6, platelets 243, na 140, K 3.8, Cr 0.72, AST 130, ALT 209, alk phos 195, troponin negative, non ischemic EKG in NSR, and her lipase was 1188. She had a CXR that showed no acute pathology and a CT A/P that revealed previously noted steatosis and some bladder wall thickening but otherwise no other noted pathology. She is now being admitted for pancreatitis. PAST MEDICAL HISTORY: 1. Alpha-1 antitrypsin deficiency followed by Dr. Mccurdy. 2. Gastroesophageal reflux disease. 3. Fibromyalgia 4. Anxiety, depression, PTSD 6. Dyslipidemia 7. Hypothyroidism 8. Migraine headaches 10. Insomnia 11. Insulin-dependent diabetes mellitus 12. Obstructive sleep apnea 13. COPD. PAST SURGICAL HISTORY: 1. Cholecystectomy. 2. Appendectomy. 3. 3 4. Orthodontic surgery 5. Port placement and removal for 1 antitrypsin deficiency infusions. SOCIAL HISTORY: Former smoker of 20 pack years. Rare consumption of alcohol No illicit drug use FAMILY HISTORY: Cancer - mother Hypertension and diabetes - mother and father REVIEW OF SYSTEMS: 10 systems reviewed and negative other than HPI PHYSICAL EXAMINATION: VITAL SIGNS: HDS, afebrile, saturating well on room air GENERAL: Middle-aged woman, obese, in mild distress, AOx3 HEENT: Moist mucous membranes, NCAT, PERRLA, EOMI CARDIOVASCULAR: RRR, S1 S2, no mrg RESPIRATORY: Clear to auscultation bilaterally without wheezing, rhonchi or crackles ABDOMINAL: Normoactive bowel sounds, soft, tender throughout, worst in epigastrium, no rebound tenderness, no shifting dullness, no involuntary guarding EXTREMITIES: No clubbing cyanosis or edema, WWP, 2+ DP pulses NEUROLOGICAL: Spontaneously moves all 4 extremities, cranial nerves 2-12 grossly intact no gross focal deficits noted PSYCHOLOGICAL: AOx3, normal affect LABORATORY DATA: See below. Summarized above IMAGING: summarized above ASSESSMENT: 49-year-old W with a history of alpha-1 antitrypsin deficiency, unprovoked PE on eliquis, IDDM, prior history of pancreatitis, history of non obstructive renal calculi who is admitted for acute pancreatitis. PROBLEMS: 1. Acute pancreatitis: No evidence of necrosis or pseudocyst on CT. -she is s/p remote cholecystectomy and has a history of chronic transaminitis related to alpha-1 antitrypsin deficiency. Will defer further imaging that would pursue c/f retained stone -NPO for now until symptom improvement -NS at 250cc/hr -zofran PRN -morphine 2mg Q4HP for abdominal pain -will check triglycerides and trend lipase with AM CBC and CMP 2.Hypertension: -will plan to continue her amlodipine and lisinopril tomorrow, holding will be per the discretion of the day team depending on how she does clinically 3. Hypothyroidism: -For now, will plan on continuing her levothyroxine but will be held if symptoms do not remit and she cannot tolerate PO meds 4. GERD: -Switch her protonix 40 BID to IV for now 5. Chronic pain: -will hold her PO pain meds for now while intolerant to much PO and on IV pain meds 6. Seasonal allergies: -hold home cetirizine 7. Chronic constipation -hold home Colace PRN for now 8. Migraine headaches: -For now, will plan on resuming PRN sumatriptan and Topamax tomorrow, in anticipation that her abdominal symptoms will start to improve 9. Diabetes mellitus: -Q6H SSI -FSBG Q6H -hypoglycemia protocol -reduce home levemir to 37u BID from 75u BID while NPO 11. PTSD/mood disorder: -plan to continue venlafaxine and buspar tomorrow 12. Chronic transaminitis: in the setting of alpha 1 antitrypsin deficiency -AM CMP -s/p cholecystectomy -no hyperbilirubinemia -previously noted steatosis on CT A/P 13. History of unprovoked PE -continue home eliquis 14. COPD/asthma: no evidence of acute exacerbation -continue home montelukast, albuterol PRN 15. Recent history of kidney stones: -hold home tramadol while on IV pain meds for pancreatitis -fluids as above -check UA given the bladder wall thickening for potential cystitis DVT ppx: eliquis Dispo: inpatient, med/surg Vital Signs Vital Signs Date Time Temp Pulse Resp B/P (MAP) Pulse Ox O2 Delivery O2 Flow Rate FiO2 12/04/19 20:49 18 Room Air 12/04/19 20:39 98 12/04/19 19:30 96 145/83 (103) 12/04/19 17:55 97.4 Laboratory Data Labs 24H Laboratory Tests 2 12/04/19 18:06: Immature Granulocyte % (Auto) 0.5, Neutrophils (%) (Auto) 44.7, Lymphocytes (%) (Auto) 41.8, Monocytes (%) (Auto) 9.0H, Eosinophils (%) (Auto) 3.1H, Basophils (%) (Auto) 0.9, Neutrophils # (Auto) 3.9, Lymphocytes # (Auto) 3.7, Monocytes # (Auto) 0.8, Eosinophils # (Auto) 0.3, Basophils # (Auto) 0.1, Nucleated Red Blood Cells % (auto) 0.0, Prothrombin Time 13.8, Prothromb Time International Ratio 1.03, Activated Partial Thromboplast Time 29.1, D-Dimer, Quantitative < 270, Anion Gap 4L, Glomerular Filtration Rate > 60.0, Calcium Level 10.0, Total Bilirubin 0.2, Direct Bilirubin 0.1, Aspartate Amino Transf (AST/SGOT) 130H, Alanine Aminotransferase (ALT/SGPT) 209H, Alkaline Phosphatase 195H, Total Creatine Kinase 61, Creatine Kinase MB < 1.0, Creatine Kinase MB Relative Index 1.64, Troponin I < 0.02, Total Protein 7.5, Albumin 3.8, Albumin/Globulin Ratio 1.0L, Lipase 1188H, Thyroid Stimulating Hormone (TSH) 0.746, Free Thyroxine 0.92 CBC/BMP Laboratory Tests 12/04/19 18:06 Home Medications Scheduled Apixaban (Eliquis) 5 Mg Tablet, 5 MG PO BID Buspirone HCl (Buspirone HCl) 30 Mg Tablet, 30 MG PO BID Cetirizine HCl (Cetirizine HCl) 10 Mg Tab, 10 MG PO DAILY Cholecalciferol (Vitamin D3) (Vitamin D3) 25 Mcg Capsule, 25 MCG PO DAILY Dulaglutide (Trulicity) 0.75 Mg/0.5 Ml Pen.injctr, 0.75 MG SC QWEEK TUESDAYS Ferrous Sulfate (Ferrous Sulfate) 325 Mg Tablet, 325 MG PO DAILY Gabapentin (Gabapentin) 600 Mg Tablet, 600 MG PO TID Insulin Glargine,Hum.rec.anlog (Basaglar Kwikpen U-100) 100 Unit/1 Ml Insuln.pen, 70 UNITS SC BID Insulin Human Regular (Humulin R) 1 Units/0.01 Ml Soln, 1 DOSE SC ACHS PER SLIDING SCALE Levothyroxine Sodium (Synthroid) 25 Mcg Tab, 25 MCG PO DAILY Lisinopril (Lisinopril) 10 Mg Tab, 10 MG PO DAILY Montelukast Sodium (Montelukast Sodium) 10 Mg Tablet, 10 MG PO DAILY Pantoprazole Sodium (Protonix) 40 Mg Tab, 40 MG PO BID Prazosin Hcl (Prazosin HCl) 1 Mg Capsule, 4 MG PO QHS Tizanidine HCl (Tizanidine HCl) 4 Mg Tab, 4 MG PO TID Topiramate (Topiramate) 50 Mg Tab, 50 MG PO BID Venlafaxine HCl (Venlafaxine HCl ER) 150 Mg Tab.er.24, 150 MG PO DAILY Scheduled PRN Albuterol Sulfate (Ventolin Hfa) 108 Mcg/Act Aer, 2 PUFFS INH Q4H PRN for SHORTNESS OF BREATH Docusate Sodium (Colace) 100 Mg Cap, 100 MG PO DAILY PRN for CONSTIPATION Ipratropium/Albuterol Sulfate (Iprat-Albut 0.5-3(2.5) mg/3 ml) 3 Ml Ampul.neb, 1 VIAL NEB Q4H PRN for SHORTNESS OF BREATH Ondansetron (Ondansetron Odt) 4 Mg Tab.rapdis, 1 TAB PO Q6-8HP PRN for nausea/vomiting Polyvinyl Alcohol (Artificial Tears) 1.4 % Debora, 1 DROP OU BID PRN for DRY EYES Sumatriptan Succinate (Sumatriptan Succinate) 50 Mg Tab, 50 MG PO BID PRN for MIGRAINE Tramadol HCl (Tramadol HCl) 50 Mg Tablet, 50 MG PO BID PRN for PAIN Triamcinolone Acetonide (Triamcinolone Acetonide) 0.1 % Lot, 1 DOSE EXT BID PRN for RASH USES ON ELBOWS AND FINGERS Miscellaneous Medications Tamsulosin Hcl (Tamsulosin HCl) 0.4 Mg Capsule Allergies Coded Allergies: meclizine (Verified Allergy, Severe, shock, 09/18/19) prednisone (Verified Allergy, Intermediate, hives, 09/18/19) PT STATES ONLY REACTION TO A DISCHARGE COORDINATOR THE TABLETS; LIQUID FORMULATIONS ARE FINE metformin (Verified Adverse Reaction, Intermediate, kidney problems, 09/18/19) A-FIB/CHADSVASC A-FIB History Current/History of A-Fib/PAF?: No Current PO Anticoag Therapy: Yes Age/Risk Factor Scoring CHADSVASC: CHADSVASC Response (Comments) Value Age Risk Factor Age < 65 years old 0 Gender Risk Factor Female 1 Hx of CHF No 0 Hx of HTN No 0 Hx of Stroke/TIA/or VTE Yes 2 Hx of Diabetes No 0 Hx of Vascular Disease No 0 Total 3 Treatment Treatment ordered: NONE Reason Anticoagulant not given: Not indicated/[id number] DANI MENDENHALL MD Dec 04, 2019 21:25
[2019-12-04 23:22] VITALS: BP 148/92
[2019-12-04 23:47] LABS: APPEARANCE, URINE CLEAR (CLEAR); BACTERIA, URINE AUTO NEGATIVE (NEGATIVE); BILIRUBIN, URINE AUTO NEGATIVE (NEGATIVE); BLOOD, URINE BLOOD NEGATIVE (NEGATIVE); COLOR, URINE YELLOW (YELLOW); GLUCOSE, URINE (UA) AUTO NEGATIVE (NEGATIVE); KETONE, URINE AUTO NEGATIVE (NEGATIVE); LEUKOCYTE ESTERASE, URINE AUTO NEGATIVE (NEGATIVE); MUCUS, URINE SMALL (NEGATIVE); NITRITE, URINE AUTO NEGATIVE (NEGATIVE); PROTEIN, URINE AUTO NEGATIVE (NEGATIVE); RBC, URINE AUTO 0 /HPF (0-3); SQUAMOUS EPITHELIAL CELL UR AU 2 /HPF (0-6); WBC, URINE AUTO 1 /HPF (0-3)
[2019-12-04] MEDS: LEVEMIR (INSULIN DETEMIR) 1 UNITS/0.01ML SC SCH ×2 (23:47→23:48)
[2019-12-04] MEDS: HumaLOG INSULIN (NovoLOG) PER UNIT SC SCH (23:47)
[2019-12-05] MEDS: busPIRone 10 MG TAB PO SCH ×3 (00:10→20:14)
[2019-12-05] MEDS: PRAZOSIN 1 MG CAP PO SCH ×2 (00:10→20:14)
[2019-12-05] MEDS: TOPIRAMATE (TopAMAX) 25 MG TAB PO SCH ×3 (00:10→20:12)
[2019-12-05] MEDS: APIXABAN 5 MG TAB (ELIQUIS) PO SCH ×3 (00:10→20:14)
[2019-12-05] MEDS: NS 1,000 ML IV SCH ×5 (00:10→14:59)
[2019-12-05] MEDS: MORPHINE 2 MG/ML 1ML VIAL (J2270) IV PRN ×4 (02:24→14:56)
[2019-12-05] MEDS: ONDANSETRON 4MG/2ML VIAL IV PRN ×3 (02:50→20:12)
[2019-12-05] MEDS: LEVOTHYROXINE 25MCG TABLET (0.025MG) PO SCH (05:47)
[2019-12-05 06:00] VITALS: BP 112/76
[2019-12-05] MEDS: HumaLOG INSULIN (NovoLOG) PER UNIT SC SCH ×3 (06:00→18:14)
[2019-12-05 07:54] LABS: HEMATOCRIT 36.9 % (36.0-47.0); MEAN CORPUSCULAR HEMOGLOBIN 33.8 pg (27.0-33.0); MEAN CORPUSCULAR HGB CONC 32.5 g/dl (32.0-36.5); MEAN CORPUSCULAR VOLUME 103.9 fl (80.0-96.0); PLATELET COUNT, AUTOMATED 206 10^3/uL (150-450); RED BLOOD COUNT 3.55 10^6/uL (4.00-5.40); WHITE BLOOD COUNT 6.8 10^3/uL (4.0-10.0)
[2019-12-05 08:10] LABS: ALBUMIN 3.1 GM/DL (3.2-5.2); ALT/SGPT 224 U/L (12-78); BILIRUBIN,TOTAL 0.3 MG/DL (0.2-1.0); BLOOD UREA NITROGEN 13 MG/DL (7-18); CALCIUM LEVEL 8.3 MG/DL (8.5-10.1); CARBON DIOXIDE LEVEL 26 MEQ/L (21-32); CHLORIDE LEVEL 113 MEQ/L (98-107); CREATININE FOR GFR 0.61 MG/DL (0.55-1.30); GLOMERULAR FILTRATION RATE > 60.0 (>58); GLUCOSE, FASTING 75 MG/DL (70-100); LIPASE 153 U/L (73-393); MAGNESIUM LEVEL 1.8 MG/DL (1.8-2.4); POTASSIUM SERUM 3.3 MEQ/L (3.5-5.1); SODIUM LEVEL 145 MEQ/L (136-145); TOTAL PROTEIN 6.1 GM/DL (6.4-8.2); TRIGLYCERIDES LEVEL 127 MG/DL (<150)
[2019-12-05] MEDS: MONTELUKAST 10 MG TAB PO SCH (08:52)
[2019-12-05] MEDS: VENLAFAXINE **XR** 75MG CAPSULE PO SCH (08:53)
[2019-12-05] MEDS: TAMSULOSIN 0.4 MG CAP PO SCH (08:58)
[2019-12-05] MEDS: lisinopriL 10 MG TAB PO SCH (08:59)
[2019-12-05] MEDS ORDERED: INFLUENZA QUADRIVALENT PF VACCINE 0.5ML SYRINGE IM ONE (09:00)
[2019-12-05] MEDS ORDERED: POTASSIUM CHLORIDE 10 MEQ SR TABLET PO ONE (10:00)
[2019-12-05] MEDS ORDERED: MOM 30ML SUSPENSION UDC PO PRN (10:45)
[2019-12-05] MEDS ORDERED: BISACODYL 5 MG TAB PO PRN (10:45)
[2019-12-05] MEDS ORDERED: SENOKOT S TAB PO PRN (10:45)
--- NOTE | 2019-12-05 11:51 | REPVR ---
PROCEDURE INFORMATION: Exam: XR Abdomen, 1 View Exam date and time: 12/05/2019 11:40 AM Age: 49 years old Clinical indication: Abdominal pain; Generalized; Additional info: Abd pain constipation R/O fecal impaction TECHNIQUE: Imaging protocol: XR of the abdomen. Views: Frontal supine view of the abdomen. 1 View. COMPARISON: MRI ABDOMEN WITHOUT CONTRAST 12/05/2019 11:03 AM FINDINGS: Gastrointestinal tract: No excessive stool volume or rectal fecal impaction. No bowel dilation. Organs: The gallbladder is likely surgically absent, with metallic clips overlying the gallbladder fossa. Vasculature: Left pelvic phleboliths. Bones/joints: No acute abnormality identified. IMPRESSION: 1. No acute abdominal or pelvic abnormality identified. 2. Prior cholecystectomy. Electronically signed by: Omid Rdz On 12/05/2019 11:50:49 AM
--- NOTE | 2019-12-05 12:06 | REPVR ---
PROCEDURE INFORMATION: Exam: MR Abdomen Without Contrast Exam date and time: 12/05/2019 11:38 AM Age: 49 years old Clinical indication: Abdominal pain; Epigastric; Patient HX: HX pancreatitis, HX gall stones, ruq pain; Additional info: Epigastric abd pain S/P cholecystectomy R/O retained stone TECHNIQUE: Imaging protocol: MR of the abdomen without contrast. 3D rendering (Not supervised by radiologist): MIP and/or 3D reconstructed images were created by the technologist. COMPARISON: MRI ABDOMEN WITHOUT CONTRAST 08/27/2018 7:26 PM FINDINGS: Liver: Mild intrahepatic biliary ductal dilatation. Low parenchymal signal intensity on fat saturated imaging consistent with hepatic steatosis. Gallbladder and bile ducts: The gallbladder is surgically absent. The extrahepatic bile ducts are dilated, measuring 11.6 mm. No ductal calculus. Pancreas: No pancreatic mass or ductal dilatation. Spleen: Unremarkable. No splenomegaly. Adrenals: Unremarkable. No mass. Kidneys and ureters: Unremarkable. No solid mass. No hydronephrosis. Stomach and bowel: Visualized stomach and intestines are unremarkable. Intraperitoneal space: No free fluid. Arteries: No abdominal aortic aneurysm. Bones/joints: Unremarkable. Soft tissues: Unremarkable. IMPRESSION: 1. Stable extrahepatic and mild central intrahepatic biliary ductal dilatation. No evidence of choledocholithiasis. 2. Prior cholecystectomy. 3. Fatty infiltration of the liver. Electronically signed by: Omid Rdz On 12/05/2019 12:06:12 PM
[2019-12-05 14:00] VITALS: BP 124/68
[2019-12-05] MEDS ORDERED: ANEXSIA, NORCO 7.5MG/325MG TABLET(HYDROCODONE/APAP) PO PRN (16:15)
[2019-12-05] MEDS: SUMAtriptan SUCCINATE 25 MG TAB PO PRN (16:23)
[2019-12-05] MEDS: KCL 10MEQ IN D5/0.45NS 1000ML 1,000 ML IV SCH ×2 (16:28→21:26)
[2019-12-05] MEDS ORDERED: ANEXSIA, NORCO 7.5MG/325MG TABLET(HYDROCODONE/APAP) PO ONE (16:30)
[2019-12-05] MEDS ORDERED: HYDROMORPHONE HCL 0.5 MG/ 0.5 ML SYRINGE (J1170 PER 1) IV ONE (16:30)
[2019-12-05] MEDS ORDERED: KETOROLAC 30 MG/ML 1ML VIAL IV ONE (16:30)
[2019-12-05] MEDS: PANTOPRAZOLE 40MG VIAL (C9113 PER 1) IV SCH (17:01)
[2019-12-05] MEDS: ANEXSIA, NORCO 7.5MG/325MG TABLET(HYDROCODONE/APAP) PO PRN (21:25)
[2019-12-05 22:00] VITALS: BP 141/85
[2019-12-06] MEDS: HumaLOG INSULIN (NovoLOG) PER UNIT SC SCH ×4 (00:46→17:58)
[2019-12-06] MEDS: KCL 10MEQ IN D5/0.45NS 1000ML 1,000 ML IV SCH ×3 (02:47→19:37)
[2019-12-06] MEDS: ONDANSETRON 4MG/2ML VIAL IV PRN ×2 (05:45→21:10)
[2019-12-06] MEDS: ANEXSIA, NORCO 7.5MG/325MG TABLET(HYDROCODONE/APAP) PO PRN ×3 (05:45→21:10)
[2019-12-06] MEDS: LEVOTHYROXINE 25MCG TABLET (0.025MG) PO SCH (05:45)
[2019-12-06 06:00] VITALS: BP 112/70
[2019-12-06] MEDS: lisinopriL 10 MG TAB PO SCH (09:00)
[2019-12-06] MEDS: VENLAFAXINE **XR** 75MG CAPSULE PO SCH (09:31)
[2019-12-06] MEDS: TOPIRAMATE (TopAMAX) 25 MG TAB PO SCH ×2 (09:31→21:08)
[2019-12-06] MEDS: MONTELUKAST 10 MG TAB PO SCH (09:31)
[2019-12-06] MEDS: busPIRone 10 MG TAB PO SCH ×2 (09:31→21:07)
[2019-12-06] MEDS: APIXABAN 5 MG TAB (ELIQUIS) PO SCH ×2 (09:31→21:07)
[2019-12-06] MEDS: PANTOPRAZOLE 40MG VIAL (C9113 PER 1) IV SCH ×2 (09:31→21:09)
[2019-12-06] MEDS: TAMSULOSIN 0.4 MG CAP PO SCH (09:31)
[2019-12-06 10:51] LABS: BASO % 0.8 % (0.0-1.0); EOS # 0.4 10^3/uL (0.0-0.5); HEMATOCRIT 38.9 % (36.0-47.0); HEMOGLOBIN 12.5 g/dl (12.0-15.5); LYMPH # 2.1 10^3/uL (1.5-5.0); LYMPH % 42.6 % (24.0-44.0); MEAN CORPUSCULAR HEMOGLOBIN 33.8 pg (27.0-33.0); MEAN CORPUSCULAR HGB CONC 32.1 g/dl (32.0-36.5); MEAN CORPUSCULAR VOLUME 105.1 fl (80.0-96.0); MONO # 0.6 10^3/uL (0.0-0.8); MONO % 12.5 % (0.0-5.0); NEUTROPHILS # 1.8 10^3/uL (1.5-8.5); NEUTROPHILS % 36.5 % (36.0-66.0); PLATELET COUNT, AUTOMATED 183 10^3/uL (150-450)
[2019-12-06 11:17] LABS: ERYTHROCYTE SEDIMENTATION RATE 28 mm/hr (0-20)
[2019-12-06 12:20] LABS: ALBUMIN 3.1 GM/DL (3.2-5.2); ALT/SGPT 205 U/L (12-78); BILIRUBIN,TOTAL 0.3 MG/DL (0.2-1.0); BLOOD UREA NITROGEN 4 MG/DL (7-18); C REACTIVE PROTEIN QUANTITATIV 1.91 MG/DL (0.00-0.30); CALCIUM LEVEL 8.6 MG/DL (8.5-10.1); CARBON DIOXIDE LEVEL 25 MEQ/L (21-32); CHLORIDE LEVEL 113 MEQ/L (98-107); CREATININE FOR GFR 0.57 MG/DL (0.55-1.30); GLOMERULAR FILTRATION RATE > 60.0 (>58); GLUCOSE, FASTING 160 MG/DL (70-100); POTASSIUM SERUM 3.8 MEQ/L (3.5-5.1); SODIUM LEVEL 142 MEQ/L (136-145); TOTAL PROTEIN 6.2 GM/DL (6.4-8.2)
[2019-12-06 14:00] VITALS: BP 120/73
[2019-12-06] MEDS: SUMAtriptan SUCCINATE 25 MG TAB PO PRN (14:30)
[2019-12-06] MEDS ORDERED: MOM 30ML SUSPENSION UDC PO ONE (19:30)
[2019-12-06 19:58] LABS: FERRITIN 256 NG/ML (8-252); IRON (FE) 70 UG/DL (50-170); PERCENT SATURATION 23.7 % (13.2-45.0); TOTAL IRON BINDING CAPACITY 295 UG/DL (250-450)
[2019-12-06] MEDS ORDERED: POLYETHYLENE GLYCOL (MIRALAX) 238GM BOTTLE PO ONE (20:00)
[2019-12-06 20:19] LABS: HEPATITIS B SURFACE ANTIGEN NEGATIVE (NEGATIVE)
--- NOTE | 2019-12-06 20:22 | ECGEPIP ---
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
[2019-12-06 20:46] LABS: HEPATITIS B CORE ANTIBODY IGM NEGATIVE (NEGATIVE); HEPATITIS C VIRUS ABY INDEX 0.1 INDEX (<0.8)
[2019-12-06 20:48] LABS: HEPATITIS A ANTIBODY IGM NEGATIVE (NEGATIVE)
[2019-12-06] MEDS: PRAZOSIN 1 MG CAP PO SCH (21:08)
[2019-12-06 22:00] VITALS: BP 142/94
[2019-12-07] MEDS ORDERED: POLYETHYLENE GLYCOL (MIRALAX) 238GM BOTTLE PO ONE (05:00)
[2019-12-07] MEDS: LEVOTHYROXINE 25MCG TABLET (0.025MG) PO SCH (05:56)
[2019-12-07] MEDS: KCL 10MEQ IN D5/0.45NS 1000ML 1,000 ML IV SCH ×2 (05:56→18:14)
[2019-12-07] MEDS: HumaLOG INSULIN (NovoLOG) PER UNIT SC SCH ×4 (05:57→18:14)
[2019-12-07 06:00] VITALS: BP 128/64
[2019-12-07] MEDS: ANEXSIA, NORCO 7.5MG/325MG TABLET(HYDROCODONE/APAP) PO PRN ×2 (08:32→18:15)
[2019-12-07] MEDS: PANTOPRAZOLE 40MG VIAL (C9113 PER 1) IV SCH (08:33)
[2019-12-07] MEDS: TAMSULOSIN 0.4 MG CAP PO SCH (08:34)
[2019-12-07] MEDS: busPIRone 10 MG TAB PO SCH ×2 (08:34→21:00)
[2019-12-07] MEDS: MONTELUKAST 10 MG TAB PO SCH (08:34)
[2019-12-07] MEDS: TOPIRAMATE (TopAMAX) 25 MG TAB PO SCH ×2 (08:34→21:00)
[2019-12-07] MEDS: VENLAFAXINE **XR** 75MG CAPSULE PO SCH (08:36)
[2019-12-07] MEDS: APIXABAN 5 MG TAB (ELIQUIS) PO SCH (08:36)
[2019-12-07] MEDS: lisinopriL 10 MG TAB PO SCH (08:40)
[2019-12-07] MEDS ORDERED: propofoL 200 MG/20 ML VIAL As Ordered ONE ×3 (13:54→16:46)
[2019-12-07] MEDS ORDERED: LIDOCAINE 2% 100MG/5ML SDV (FOR ANES.) As Ordered ONE (13:54)
[2019-12-07 14:00] VITALS: BP 122/80
--- NOTE | 2019-12-07 16:57 | ROOR ---
Patient Name: Hannah Vail Procedure Date: 12/07/2019 2:14 PM Date of : 1970 Age: 49 Gender: Female Note Status: Finalized Procedure: Upper GI endoscopy Indications: Epigastric abdominal pain Providers: Fercho SCHROEDER MD Referring MD: 2. Inpatient 2. Inpatient Requesting Provider: Medicines: Monitored Anesthesia Care Complications: No immediate complications. Procedure: Pre-Anesthesia Assessment: - The heart rate, respiratory rate, oxygen saturations, blood pressure, adequacy of pulmonary ventilation, and response to care were monitored throughout the procedure. The Endoscope was introduced through the mouth, and advanced to the second part of duodenum. The upper GI endoscopy was accomplished without difficulty. The patient tolerated the procedure well. Findings: The esophagus was normal. The stomach was normal. The examined duodenum was normal. Impression: - Normal esophagus. - Normal stomach. - Normal examined duodenum. - No specimens collected. - No cause for pain/elevated lipase determined on this exam Recommendation: - Perform a colonoscopy today. Fercho Schroeder MD Fercho SCHROEDER MD 12/07/2019 4:57:04 PM Electronically signed by Fercho SCHROEDER MD Number of Addenda: 0 Note Initiated On: 12/07/2019 2:14 PM Estimated Blood Loss: Estimated blood loss: none.
--- NOTE | 2019-12-07 17:06 | ROOR ---
Patient Name: Hannah Vail Procedure Date: 12/07/2019 2:16 PM Date of : 1970 Age: 49 Gender: Female Note Status: Finalized Procedure: Colonoscopy Indications: Epigastric abdominal pain, Abdominal pain in the right upper quadrant Providers: Fercho SCHROEDER MD Referring MD: 2. Inpatient 2. Inpatient Requesting Provider: Medicines: Monitored Anesthesia Care Complications: No immediate complications. Procedure: Pre-Anesthesia Assessment: - The heart rate, respiratory rate, oxygen saturations, blood pressure, adequacy of pulmonary ventilation, and response to care were monitored throughout the procedure. The Colonoscope was introduced through the anus and advanced to 10 cm into the ileum. The colonoscopy was performed without difficulty. The patient tolerated the procedure well. The quality of the bowel preparation was adequate. Findings: The perianal and digital rectal examinations were normal. Internal hemorrhoids were found during retroflexion. The hemorrhoids were medium-sized. The entire examined colon appeared normal on direct and retroflexion views. The terminal ileum appeared normal. Impression: - Internal hemorrhoids. - The entire examined colon is normal on direct and retroflexion views. - The examined portion of the ileum was normal. - No specimens collected. - (No cause for abdominal pain/elevated lipase determined on this exam). Recommendation: - Await results of lab work -Consideration will be given to ERCP to assess intra and extrahepatic biliary ectasia/?dilation-r/o papillary stenosis. To be discussed with patient later today. Fercho Schroeder MD Fercho SCHROEDER MD 12/07/2019 5:05:59 PM Electronically signed by Fercho SCHROEDER MD Number of Addenda: 0 Note Initiated On: 12/07/2019 2:16 PM Estimated Blood Loss: Estimated blood loss: none.
[2019-12-07] MEDS ORDERED: LR 1,000 ML IV SCH (17:30)
[2019-12-07] MEDS ORDERED: METOCLOPRAMIDE INJ 10MG/2ML VIAL (J2765 PER 1) IV PRN (17:30)
[2019-12-07] MEDS ORDERED: ONDANSETRON 4MG/2ML VIAL IV PRN (17:30)
[2019-12-07 17:45] VITALS: BP 147/96
[2019-12-07] MEDS ORDERED: ePHEDrine SULFATE 25 MG/5 ML(5MG/ML) SYRINGE As Ordered ONE (17:46)
[2019-12-07] MEDS ORDERED: PHENYLephrine HCL 500 MCG/5 ML (100MCG/ML) SYRINGE (J2370) As Ordered ONE (17:46)
--- NOTE | 2019-12-07 18:42 | IPNPDOC ---
Subjective Date Seen The patient was seen on 12/07/19. Subjective Chief Complaint/HPI Continues to have right upper quadrant and epigastric soreness and discomfort. Also continues to have nausea. No fever or chills. no chest pain or sob or cough. Objective Physical Examination General Exam: Positive: Alert, Cooperative, No Acute Distress Eye Exam: Positive: PERRLA, Conjunctiva & lids normal, EOMI; Negative: Sclera icteric ENT Exam: Positive: Atraumatic, Mucous membr. moist/pink, Pharynx Normal Neck Exam: Positive: Supple; Negative: JVD, thyromegaly Chest Exam: Positive: Clear to auscultation, Diminished Heart Exam: Positive: Rate Normal, Regular Rhythm, Normal S1, Normal S2; Negative: Murmurs, Rubs Abdomen Exam: Positive: Normal bowel sounds, Soft, Tenderness (right upper quadrant) Extremity Exam: Negative: Clubbing, Cyanosis, Edema Skin Exam: Positive: Nl turgor and temperature; Negative: Rash, Breakdown Neuro Exam: Positive: Normal Gait, Normal Speech, Strength at 5/5 X4 ext, Normal Tone Assessment /Plan Assessment 49-year-old W with a history of COPD/Asthma, WANDY, alpha-1 antitrypsin deficiency, unprovoked PE on eliquis, IDDM, prior history of pancreatitis, h istory of non obstructive renal calculi, who presents with worsening of chest/epigastric pain and right upper quadrant pain associated with nausea and vomiting. She was found to have worsening transaminitis and mildly elevated lipase. CT abdomen did not show any evidence of acute pancreatitis. She is being evaluated for transaminitis. Transaminitis and elevated lipase s/p cholecystectomy, hepatic steatosis in CT abd. patient does not have pancreatitis Had EGD and Colonoscopy today no abnormality expect for some internal hemorrhoids. MRCP x 2 before showed mild CBD and intrahepatic biliary dilatation Dr Schroeder to discuss about ERCP HepA, Hep B and HepC negative. Ferritin not elevated. work up sent for other etiologies of hepatitis will hold eliquis in anticipation of ERCP. Alpha-1 antitrypsin deficiency followed by Dr. Mccurdy. No supplementation needed recently COPD/asthma: no evidence of acute exacerbation continue home montelukast, albuterol PRN Fibromyalgia /Chronic pain: on norco Dyslipidemia Obesity/ Obstructive sleep apnea CPAP Hypertension: amlodipine and lisinopril Hypothyroidism: Synthroid GERD: PPI Seasonal allergies: cetirizine Chronic Constipation on miralax, colace, senna Migraine headaches: sumatriptan prn and Topamax Diabetes mellitus Levemir and lispro dose reduced as on clear liquids. PTSD/mood disorder continue venlafaxine and buspar, prazocin History of unprovoked PE >6months on eliquis will hold now for ERCP. Recent history of kidney stones: on norco, flomax Plan/VTE VTE Prophylaxis Ordered?: Yes VS, I&O, 24H, Fishbone Vital Signs/I&O Vital Signs Date Time Temp Pulse Resp B/P (MAP) Pulse Ox O2 Delivery O2 Flow Rate FiO2 12/07/19 18:15 16 Room Air 12/07/19 17:45 98.0 78 147/96 (113) 97 I&O- Last 24 Hours up to 6 AM 12/07/19 07:00 Intake Total 4320 ml Output Total 2000 ml Balance 2320 ml Laboratory Data 24H LABS Laboratory Tests 2 12/06/19 19:14: Iron Level 70, Total Iron Binding Capacity 295, Transferrin % Saturation 23.7, Ferritin 256H, Immunoglobulin A 282.0, Hepatitis A IgM Antibody NEGATIVE, Hepatitis B Surface Antigen NEGATIVE, Hepatitis B Core IgM Antibody NEGATIVE, Hepatitis C Antibody Index 0.1 12/06/19 23:53: Bedside Glucose (Misc Panel) 230H 12/07/19 04:44: Bedside Glucose (Misc Panel) 181H 12/07/19 08:55: 12/07/19 12:13: Bedside Glucose (Misc Panel) 247H 12/07/19 14:10: Coronavirus (COVID-19)(PCR) NEGATIVE 12/07/19 17:58: Bedside Glucose (Misc Panel) 200H THERON GUZMÁN MD Dec 07, 2019 18:41
[2019-12-07] MEDS: ONDANSETRON 4MG/2ML VIAL IV PRN (21:00)
[2019-12-07] MEDS: PANTOPRAZOLE 40MG TAB (PROTONIX) PO SCH (21:00)
[2019-12-07] MEDS: GABAPENTIN 300 MG CAP PO SCH (21:00)
[2019-12-07] MEDS: PRAZOSIN 1 MG CAP PO SCH (21:01)
[2019-12-07 22:00] VITALS: BP 148/88
[2019-12-08] MEDS: ANEXSIA, NORCO 7.5MG/325MG TABLET(HYDROCODONE/APAP) PO PRN ×3 (01:13→17:15)
[2019-12-08] MEDS: LEVOTHYROXINE 25MCG TABLET (0.025MG) PO SCH (05:42)
[2019-12-08] MEDS ORDERED: GLUCAGON INJ 1MG VIAL SC PRN (05:45)
[2019-12-08] MEDS ORDERED: GLUCOSE 4GM CHEW TABLET PO PRN (05:45)
[2019-12-08] MEDS ORDERED: DEXTROSE 50% 50 ML SYRINGE IV PRN (05:45)
[2019-12-08 06:00] VITALS: BP 139/72
[2019-12-08 06:14] LABS: BASO % 0.6 % (0.0-1.0); EOS # 0.3 10^3/uL (0.0-0.5); EOS % 4.5 % (0.0-3.0); HEMATOCRIT 42.4 % (36.0-47.0); HEMOGLOBIN 13.6 g/dl (12.0-15.5); LYMPH # 2.9 10^3/uL (1.5-5.0); LYMPH % 46.8 % (24.0-44.0); MEAN CORPUSCULAR HEMOGLOBIN 33.1 pg (27.0-33.0); MEAN CORPUSCULAR HGB CONC 32.1 g/dl (32.0-36.5); MEAN CORPUSCULAR VOLUME 103.2 fl (80.0-96.0); MONO # 0.7 10^3/uL (0.0-0.8); NEUTROPHILS # 2.3 10^3/uL (1.5-8.5); NEUTROPHILS % 36.8 % (36.0-66.0); PLATELET COUNT, AUTOMATED 226 10^3/uL (150-450); RED BLOOD COUNT 4.11 10^6/uL (4.00-5.40); WHITE BLOOD COUNT 6.3 10^3/uL (4.0-10.0)
[2019-12-08 06:42] LABS: ALBUMIN 3.4 GM/DL (3.2-5.2); ALT/SGPT 145 U/L (12-78); BILIRUBIN,TOTAL 0.3 MG/DL (0.2-1.0); BLOOD UREA NITROGEN 4 MG/DL (7-18); CALCIUM LEVEL 9.2 MG/DL (8.5-10.1); CARBON DIOXIDE LEVEL 24 MEQ/L (21-32); CHLORIDE LEVEL 110 MEQ/L (98-107); CREATININE FOR GFR 0.62 MG/DL (0.55-1.30); GLOMERULAR FILTRATION RATE > 60.0 (>58); GLUCOSE, FASTING 228 MG/DL (70-100); POTASSIUM SERUM 3.8 MEQ/L (3.5-5.1); SODIUM LEVEL 140 MEQ/L (136-145); TOTAL PROTEIN 6.8 GM/DL (6.4-8.2)
[2019-12-08] MEDS: HumaLOG INSULIN (NovoLOG) PER UNIT SC SCH ×5 (09:03→20:38)
[2019-12-08] MEDS: GABAPENTIN 300 MG CAP PO SCH ×3 (09:03→20:51)
[2019-12-08] MEDS: TOPIRAMATE (TopAMAX) 25 MG TAB PO SCH ×2 (09:03→20:53)
[2019-12-08] MEDS: busPIRone 10 MG TAB PO SCH ×2 (09:03→20:51)
[2019-12-08] MEDS: MONTELUKAST 10 MG TAB PO SCH (09:05)
[2019-12-08] MEDS: VENLAFAXINE **XR** 75MG CAPSULE PO SCH (09:05)
[2019-12-08] MEDS: TAMSULOSIN 0.4 MG CAP PO SCH (09:05)
[2019-12-08] MEDS: lisinopriL 10 MG TAB PO SCH (09:06)
[2019-12-08] MEDS: PANTOPRAZOLE 40MG TAB (PROTONIX) PO SCH ×2 (09:06→20:53)
[2019-12-08] MEDS ORDERED: ENOXAPARIN 40MG/0.4ML SYRINGE (J1650 PER 10MG) SC ONE (09:30)
--- NOTE | 2019-12-08 12:06 | IPNPDOC ---
Subjective Date Seen The patient was seen on 12/08/19. Subjective Chief Complaint/HPI continues to have RUQ mild discomfort and epigastric discomfort. Nausea is better. No fever or chills. Objective Physical Examination General Exam: Positive: Alert, Cooperative, No Acute Distress Eye Exam: Positive: PERRLA, Conjunctiva & lids normal, EOMI; Negative: Sclera icteric ENT Exam: Positive: Atraumatic, Mucous membr. moist/pink, Pharynx Normal Neck Exam: Positive: Supple; Negative: JVD, thyromegaly Chest Exam: Positive: Clear to auscultation, Diminished Heart Exam: Positive: Rate Normal, Regular Rhythm, Normal S1, Normal S2; Negative: Murmurs, Rubs Abdomen Exam: Positive: Normal bowel sounds, Soft, Tenderness (right upper quadrant) Extremity Exam: Negative: Clubbing, Cyanosis, Edema Skin Exam: Positive: Nl turgor and temperature; Negative: Rash, Breakdown Neuro Exam: Positive: Normal Gait, Normal Speech, Strength at 5/5 X4 ext, Normal Tone Assessment /Plan Assessment 49-year-old W with a history of COPD/Asthma, WANDY, alpha-1 antitrypsin deficiency, unprovoked PE on eliquis, IDDM, prior history of pancreatitis, history of non obstructive renal calculi, who presents with worsening of chest/epigastric pain and right upper quadrant pain associated with nausea and vomiting. She was found to have worsening transaminitis and mildly elevated lipase. CT abdomen did not show any evidence of acute pancreatitis. She is being evaluated for transaminitis. Transaminitis and elevated lipase s/p cholecystectomy, hepatic steatosis in CT abd. patient does not have pancreatitis Had EGD and Colonoscopy today no abnormality expect for some internal hemorrhoids. MRCP x 2 before showed mild CBD and intrahepatic biliary dilatation Dr Schroeder to discuss about ERCP HepA, Hep B and HepC negative. Ferritin not elevated. work up sent for other etiologies of hepatitis will hold eliquis in anticipation of ERCP. Alpha-1 antitrypsin deficiency followed by Dr. Mccurdy. No supplementation needed recently COPD/asthma: no evidence of acute exacerbation continue home montelukast, albuterol PRN Fibromyalgia /Chronic pain: on norco Dyslipidemia Obesity/ Obstructive sleep apnea CPAP Hypertension: amlodipine and lisinopril Hypothyroidism: Synthroid GERD: PPI Seasonal allergies: cetirizine Chronic Constipation on miralax, colace, senna Migraine headaches: sumatriptan prn and Topamax Diabetes mellitus Levemir and lispro dose reduced as on clear liquids. PTSD/mood disorder continue venlafaxine and buspar, prazocin History of unprovoked PE >6months on eliquis will hold now for ERCP. Recent history of kidney stones: on norco, flomax Plan/VTE VTE Prophylaxis Ordered?: Yes VS, I&O, 24H, Fishbone Vital Signs/I&O Vital Signs Date Time Temp Pulse Resp B/P (MAP) Pulse Ox O2 Delivery O2 Flow Rate FiO2 12/08/19 09:35 18 12/08/19 09:06 120/80 12/08/19 06:00 98.2 94 96 Room Air I&O- Last 24 Hours up to 6 AM 12/08/19 06:00 Intake Total 2810 ml Output Total 1650 ml Balance 1160 ml Laboratory Data 24H LABS Laboratory Tests 2 12/07/19 12:13: Bedside Glucose (Misc Panel) 247H 12/07/19 14:10: Coronavirus (COVID-19)(PCR) NEGATIVE 12/07/19 17:58: Bedside Glucose (Misc Panel) 200H 12/07/19 23:54: Bedside Glucose (Misc Panel) 226H 12/08/19 05:13: Immature Granulocyte % (Auto) 0.3, Neutrophils (%) (Auto) 36.8, Lymphocytes (%) (Auto) 46.8H, Monocytes (%) (Auto) 11.0H, Eosinophils (%) (Auto) 4.5H, Basophils (%) (Auto) 0.6, Neutrophils # (Auto) 2.3, Lymphocytes # (Auto) 2.9, Monocytes # (Auto) 0.7, Eosinophils # (Auto) 0.3, Basophils # (Auto) 0.0, Nucleated Red Blood Cells % (auto) 0.0, Anion Gap 6L, Glomerular Filtration Rate > 60.0, Ca lcium Level 9.2, Total Bilirubin 0.3, Aspartate Amino Transf (AST/SGOT) 44H, Alanine Aminotransferase (ALT/SGPT) 145H, Alkaline Phosphatase 196H, Total Protein 6.8, Albumin 3.4, Albumin/Globulin Ratio 1.0L 12/08/19 11:26: Bedside Glucose (Misc Panel) 292H CBC/BMP Laboratory Tests 12/08/19 05:13 THERON GUZMÁN MD Dec 08, 2019 12:06
[2019-12-08 14:00] VITALS: BP 126/83
[2019-12-08] MEDS: PRAZOSIN 1 MG CAP PO SCH (20:53)
[2019-12-08 22:00] VITALS: BP 128/81
[2019-12-09] VITALS (11 sets, daily range): BP systolic 104–160; BP diastolic 70–100; O2SAT 94
[2019-12-09] MEDS: ANEXSIA, NORCO 7.5MG/325MG TABLET(HYDROCODONE/APAP) PO PRN ×3 (05:20→23:28)
[2019-12-09] MEDS: LEVOTHYROXINE 25MCG TABLET (0.025MG) PO SCH (05:34)
[2019-12-09 05:38] LABS: BASO # 0.1 10^3/uL (0.0-0.2); BASO % 0.8 % (0.0-1.0); EOS # 0.2 10^3/uL (0.0-0.5); EOS % 3.2 % (0.0-3.0); HEMATOCRIT 41.7 % (36.0-47.0); LYMPH # 3.5 10^3/uL (1.5-5.0); LYMPH % 47.9 % (24.0-44.0); MEAN CORPUSCULAR HEMOGLOBIN 32.2 pg (27.0-33.0); MEAN CORPUSCULAR HGB CONC 31.2 g/dl (32.0-36.5); MEAN CORPUSCULAR VOLUME 103.2 fl (80.0-96.0); MONO # 0.8 10^3/uL (0.0-0.8); MONO % 10.6 % (0.0-5.0); NEUTROPHILS # 2.7 10^3/uL (1.5-8.5); NEUTROPHILS % 37.2 % (36.0-66.0); PLATELET COUNT, AUTOMATED 222 10^3/uL (150-450); RED BLOOD COUNT 4.04 10^6/uL (4.00-5.40); WHITE BLOOD COUNT 7.2 10^3/uL (4.0-10.0)
[2019-12-09 06:13] LABS: ALBUMIN 3.2 GM/DL (3.2-5.2); ALT/SGPT 120 U/L (12-78); BILIRUBIN,TOTAL 0.3 MG/DL (0.2-1.0); BLOOD UREA NITROGEN 12 MG/DL (7-18); CALCIUM LEVEL 9.3 MG/DL (8.5-10.1); CARBON DIOXIDE LEVEL 25 MEQ/L (21-32); CHLORIDE LEVEL 109 MEQ/L (98-107); GLOMERULAR FILTRATION RATE > 60.0 (>58); GLUCOSE, FASTING 250 MG/DL (70-100); POTASSIUM SERUM 3.9 MEQ/L (3.5-5.1); SODIUM LEVEL 141 MEQ/L (136-145); TOTAL PROTEIN 6.8 GM/DL (6.4-8.2)
[2019-12-09] MEDS: HumaLOG INSULIN (NovoLOG) PER UNIT SC SCH ×4 (08:24→21:07)
[2019-12-09] MEDS: MONTELUKAST 10 MG TAB PO SCH (08:26)
[2019-12-09] MEDS: TAMSULOSIN 0.4 MG CAP PO SCH (08:26)
[2019-12-09] MEDS: busPIRone 10 MG TAB PO SCH ×2 (08:26→20:56)
[2019-12-09] MEDS: VENLAFAXINE **XR** 75MG CAPSULE PO SCH (08:26)
[2019-12-09] MEDS: GABAPENTIN 300 MG CAP PO SCH ×3 (08:26→20:56)
[2019-12-09] MEDS: PANTOPRAZOLE 40MG TAB (PROTONIX) PO SCH ×2 (08:26→20:56)
[2019-12-09] MEDS: TOPIRAMATE (TopAMAX) 25 MG TAB PO SCH ×2 (08:26→20:55)
[2019-12-09] MEDS: lisinopriL 10 MG TAB PO SCH (08:34)
[2019-12-09] MEDS ORDERED: NS 1,000 ML IV SCH (08:45)
[2019-12-09] MEDS ORDERED: HumaLOG INSULIN (NovoLOG) PER UNIT SC ONE (12:15)
[2019-12-09] MEDS ORDERED: LIDOCAINE 2% 100MG/5ML SDV (FOR ANES.) As Ordered ONE (13:28)
[2019-12-09] MEDS ORDERED: propofoL 200 MG/20 ML VIAL As Ordered ONE (13:28)
[2019-12-09] MEDS ORDERED: ROCURONIUM BROMIDE 50 MG/5 ML VIAL As Ordered ONE (13:28)
[2019-12-09] MEDS ORDERED: SUGAMMADEX SODIUM 500 MG/5 ML VIAL (BRIDION) As Ordered ONE (13:29)
[2019-12-09] MEDS ORDERED: ONDANSETRON 4MG/2ML VIAL As Ordered ONE (13:29)
[2019-12-09] MEDS ORDERED: fentaNYL 100 MCG/2 ML INJECTION (J3010) As Ordered ONE ×2 (13:29→15:41)
[2019-12-09] MEDS ORDERED: dexameTHASONE 4 MG/ML 1ML VIAL (J1100 PER 1MG) As Ordered ONE (13:29)
[2019-12-09] MEDS ORDERED: MIDAZOLAM INJ 2MG/2ML VIAL (J2250 PER 1MG) As Ordered ONE (13:29)
[2019-12-09] MEDS ORDERED: ISOVUE-300 61% 50ML VIAL As Ordered ONE (14:00)
--- NOTE | 2019-12-09 14:55 | IPNPDOC ---
Subjective Date Seen The patient was seen on 12/09/19. Subjective Chief Complaint/HPI No new complaints today. Piotr will be going for ERCP this afternoon. RUQ discomfort persists. Objective Physical Examination General Exam: Positive: Alert, Cooperative, No Acute Distress Eye Exam: Positive: PERRLA, Conjunctiva & lids normal, EOMI; Negative: Sclera icteric ENT Exam: Positive: Atraumatic, Mucous membr. moist/pink, Pharynx Normal Neck Exam: Positive: Supple; Negative: JVD, thyromegaly Chest Exam: Positive: Clear to auscultation, Diminished Heart Exam: Positive: Rate Normal, Regular Rhythm, Normal S1, Normal S2; Negative: Murmurs, Rubs Abdomen Exam: Positive: Normal bowel sounds, Soft, Tenderness (right upper quadrant) Extremity Exam: Negative: Clubbing, Cyanosis, Edema Skin Exam: Positive: Nl turgor and temperature; Negative: Rash, Breakdown Neuro Exam: Positive: Normal Gait, Normal Speech, Strength at 5/5 X4 ext, Normal Tone Assessment /Plan Assessment 49-year-old W with a history of COPD/Asthma, WANDY, alpha-1 antitrypsin defi ciency, unprovoked PE on eliquis, IDDM, prior history of pancreatitis, history of non obstructive renal calculi, who presents with worsening of chest/epigastric pain and right upper quadrant pain associated with nausea and vomiting. She was found to have worsening transaminitis and mildly elevated l ipase. CT abdomen did not show any evidence of acute pancreatitis. She is being evaluated for transaminitis. Transaminitis and elevated lipase s/p cholecystectomy, hepatic steatosis in CT abd. patient does not have pancreatitis Had EGD and Colonoscopy today no abnormality expect for some internal hemorrhoids. MRCP x 2 before showed mild CBD and intrahepatic biliary dilatation HepA, Hep B and HepC negative. Ferritin not elevated. work up sent for other etiologies of hepatitis will hold eliquis in anticipation of ERCP on 12/09/19 Alpha-1 antitrypsin deficiency followed by Dr. Mccurdy. No supplementation needed recently COPD/asthma: no evidence of acute exacerbation continue home montelukast, albuterol PRN Fibromyalgia /Chronic pain: on norco Dyslipidemia Obesity/ Obstructive sleep apnea CPAP Hypertension: amlodipine and lisinopril Hypothyroidism: Synthroid GERD: PPI Seasonal allergies: cetirizine Chronic Constipation on miralax, colace, senna Migraine headaches: sumatriptan prn and Topamax Diabetes mellitus Levemir and lispro dose reduced as on clear liquids. PTSD/mood disorder continue venlafaxine and buspar, prazocin History of unprovoked PE >6months on eliquis will hold now for ERCP. Recent history of kidney stones: on norco, flomax Plan/VTE VTE Prophylaxis Ordered?: Yes VS, I&O, 24H, Fishbone Vital Signs/I&O Vital Signs Date Time Temp Pulse Resp B/P (MAP) Pulse Ox O2 Delivery O2 Flow Rate FiO2 12/09/19 05:20 16 12/08/19 22:00 98.3 84 128/81 (97) 97 12/08/19 14:00 Room Air I&O- Last 24 Hours up to 6 AM 12/09/19 07:00 Intake Total 2040 ml Output Total 1700 ml Balance 340 ml Laboratory Data 24H LABS Laboratory Tests 2 12/08/19 11:26: Bedside Glucose (Misc Panel) 292H 12/08/19 16:28: Bedside Glucose (Misc Panel) 208H 12/08/19 20:15: Bedside Glucose (Misc Panel) 231H 12/09/19 05:18: Immature Granulocyte % (Auto) 0.3, Neutrophils (%) (Auto) 37.2, Lymphocytes (%) (Auto) 47.9H, Monocytes (%) (Auto) 10.6H, Eosinophils (%) (Auto) 3.2H, Basophils (%) (Auto) 0.8, Neutrophils # (Auto) 2.7, Lymphocytes # (Auto) 3.5, Monocytes # (Auto) 0.8, Eosinophils # (Auto) 0.2, Basophils # (Auto) 0.1, Nucleated Red Blood Cells % (auto) 0.0 CBC/BMP Laboratory Tests 12/09/19 05:18 THERON GUZMÁN MD Dec 09, 2019 06:12
[2019-12-09 16:08] LABS: ANCA-ATYPICAL <1:20 titer (Neg:<1:20); ANTI-MITOCHONDRIAL ANTIBODY 170.8 Units (0.0-20.0); ANTINUCLEAR ANTIBODIES DIRECT Negative (Negative); CERULOPLASMIN 36.7 mg/dL (19.0-39.0); CYTOPLASMIC NEUTROP AB ANCA-C <1:20 titer (Neg:<1:20); LIVER-KIDNEY MICROSOMAL ABY <20.1 Units (0.0-20.0); PERINUCLEAR AB ANCA-P <1:20 titer (Neg:<1:20); TISSUE TRANSGLUTAMINASE IgA <2 U/mL (0-3)
--- NOTE | 2019-12-09 16:24 | ROOR ---
Patient Name: Hannah Vail Procedure Date: 12/09/2019 2:04 PM Date of : 1970 Age: 49 Room: Main OR Gender: Female Note Status: Finalized Procedure: ERCP Indications: Suspected post-cholecystectomy Sphincter of Oddi dysfunction, Abdominal pain of suspected biliary or pancreatic origin, Biliary dilation on magnetic resonance cholangiopancreatography, Elevated liver enzymes, Suspected acute recurrent pancreatitis Providers: Fercho SCHROEDER MD Referring MD: 2. Inpatient 2. Inpatient Requesting Provider: Medicines: Monitored Anesthesia Care Complications: No immediate complications. Procedure: Pre-Anesthesia Assessment: - The heart rate, respiratory rate, oxygen saturations, blood pressure, adequacy of pulmonary ventilation, and response to care were monitored throughout the procedure. The Duodenoscope was introduced through the mouth, and advanced to the duodenum and used to inject contrast into the bile duct. The ERCP was accomplished without difficulty. The patient tolerated the procedure well. Findings: The after school driver film was normal. The esophagus was successfully intubated under direct vision. The scope was advanced to a normal major papilla in the descending duodenum without detailed examination of the pharynx, larynx and associated structures, and upper GI tract. The upper GI tract was grossly normal. A straight Roadrunner wire was passed into the biliary tree. The bile duct was then deeply cannulated over the guidewire. Contrast was injected. I personally interpreted the bile duct images. Ductal flow of contrast was adequate. Image quality was adequate. Opacification of the entire biliary tree except for the gallbladder was successful. The main bile duct, common hepatic duct and hepatic duct bifurcation were diffusely dilated, uncertain significance. The largest diameter was 11mm. The entire biliary tree showed no sludge on fluoroscopic exam, stenosis or stones present. One 7 Fr by 5 cm temporary stent with two internal flaps was placed into the common bile duct. Bile flowed through the stent. The stent was in good position. Impression: - The patient had a cholecystectomy. - The entire main bile duct and common hepatic duct were mildly dilated, uncertain significance. - The papilla is not stenotic and drains bile spontaneously. - One temporary stent was placed into the common bile duct. Recommendation: - Observe patient's clinical course with stent in place over the next 3-4 months. - Return to endoscopist for stent removal. - If symptoms resolve/do not recur over the next 3-4 month interval, then SOD is likely and will repeat ERCP for stent removal and for a sphincterotomy. - If symptoms do not resolve over the next 3-4 month interval, then will remove stent via EGD in 3-4 months. - [facility] care. - Return to my office in 2 weeks. Fercho Schroeder MD Fercho SCHROEDER MD 12/09/2019 4:23:20 PM Electronically signed by Fercho SCHROEDER MD Number of Addenda: 0 Note Initiated On: 12/09/2019 2:04 PM Estimated Blood Loss: Estimated blood loss: none.
[2019-12-09] MEDS ORDERED: oxyCODONE 5MG TAB PO PRN (16:45)
[2019-12-09] MEDS ORDERED: LR 1,000 ML IV SCH (16:45)
[2019-12-09] MEDS ORDERED: HYDROMORPHONE HCL 0.5 MG/ 0.5 ML SYRINGE (J1170 PER 1) IV PRN (16:45)
[2019-12-09] MEDS ORDERED: ONDANSETRON 4MG/2ML VIAL IV PRN (16:45)
[2019-12-09] MEDS ORDERED: fentaNYL 100 MCG/2 ML INJECTION (J3010) IV PRN (16:45)
[2019-12-09] MEDS: ONDANSETRON 4MG/2ML VIAL IV PRN (17:23)
[2019-12-09] MEDS: PRAZOSIN 1 MG CAP PO SCH (20:59)
[2019-12-09] MEDS ORDERED: DICYCLOMINE 10 MG CAP PO ONE (21:00)
[2019-12-09] MEDS: APIXABAN 5 MG TAB (ELIQUIS) PO SCH (21:06)
[2019-12-10 02:00] VITALS: BP 152/80
[2019-12-10] MEDS: LEVOTHYROXINE 25MCG TABLET (0.025MG) PO SCH (05:47)
[2019-12-10] MEDS: ANEXSIA, NORCO 7.5MG/325MG TABLET(HYDROCODONE/APAP) PO PRN (05:48)
[2019-12-10 06:00] VITALS: BP 138/70
[2019-12-10 06:11] LABS: BASO % 0.4 % (0.0-1.0); EOS % 0.2 % (0.0-3.0); HEMATOCRIT 39.2 % (36.0-47.0); HEMOGLOBIN 12.6 g/dl (12.0-15.5); LYMPH # 3.4 10^3/uL (1.5-5.0); LYMPH % 30.9 % (24.0-44.0); MEAN CORPUSCULAR HEMOGLOBIN 32.9 pg (27.0-33.0); MEAN CORPUSCULAR HGB CONC 32.1 g/dl (32.0-36.5); MEAN CORPUSCULAR VOLUME 102.3 fl (80.0-96.0); MONO # 0.9 10^3/uL (0.0-0.8); MONO % 7.8 % (0.0-5.0); NEUTROPHILS # 6.6 10^3/uL (1.5-8.5); NEUTROPHILS % 60.2 % (36.0-66.0); PLATELET COUNT, AUTOMATED 246 10^3/uL (150-450); RED BLOOD COUNT 3.83 10^6/uL (4.00-5.40)
[2019-12-10 06:42] LABS: ALBUMIN 3.2 GM/DL (3.2-5.2); ALT/SGPT 113 U/L (12-78); BILIRUBIN,TOTAL 0.3 MG/DL (0.2-1.0); BLOOD UREA NITROGEN 13 MG/DL (7-18); CALCIUM LEVEL 9.6 MG/DL (8.5-10.1); CARBON DIOXIDE LEVEL 26 MEQ/L (21-32); CHLORIDE LEVEL 107 MEQ/L (98-107); CREATININE FOR GFR 0.76 MG/DL (0.55-1.30); GLOMERULAR FILTRATION RATE > 60.0 (>58); GLUCOSE, FASTING 300 MG/DL (70-100); POTASSIUM SERUM 4.2 MEQ/L (3.5-5.1); SODIUM LEVEL 140 MEQ/L (136-145); TOTAL PROTEIN 6.7 GM/DL (6.4-8.2)
[2019-12-10 07:56] VITALS: BP 126/92
[2019-12-10] MEDS: HumaLOG INSULIN (NovoLOG) PER UNIT SC SCH (07:58)
[2019-12-10] MEDS: APIXABAN 5 MG TAB (ELIQUIS) PO SCH (07:59)
[2019-12-10] MEDS: TOPIRAMATE (TopAMAX) 25 MG TAB PO SCH (07:59)
[2019-12-10] MEDS: VENLAFAXINE **XR** 75MG CAPSULE PO SCH (07:59)
[2019-12-10] MEDS: MONTELUKAST 10 MG TAB PO SCH (07:59)
[2019-12-10] MEDS: GABAPENTIN 300 MG CAP PO SCH (07:59)
[2019-12-10] MEDS: PANTOPRAZOLE 40MG TAB (PROTONIX) PO SCH (07:59)
[2019-12-10] MEDS: busPIRone 10 MG TAB PO SCH (08:00)
[2019-12-10] MEDS: lisinopriL 10 MG TAB PO SCH (08:00)
[2019-12-10] MEDS: TAMSULOSIN 0.4 MG CAP PO SCH (08:00)
[2019-12-10] MEDS ORDERED: LEVEMIR (INSULIN DETEMIR) 1 UNITS/0.01ML SC SCH (09:00)
[2019-12-10 10:00] VITALS: BP 134/89
--- NOTE | 2019-12-10 16:51 | DS.PDOC ---
Discharge Summary General Date of Admission Dec 04, 2019 at 21:19 Date of Discharge 12/10/19 Discharge Summary PROCEDURES PERFORMED DURING STAY: ERCP DISCHARGE DIAGNOSES: Transaminitis with elevated Anti mitochondrial antibody work up in progress. SECONDARY DIAGNOSIS: COPD/Asthma, WANDY, Obesity, alpha-1 antitrypsin deficiency, unprovoked PE on eliquis, IDDM, prior history of pancreatitis, history of non obstructive renal calculi, Chronic constipation, Gastroesophageal reflux disease. Fibromyalgia Anxiety, depression, PTSD, Dyslipidemia, Hypothyroidism, Migraine headaches, Insomnia, Insulin-dependent diabetes mellitus COMPLICATIONS/CHIEF COMPLAINT: Pancreatitis, Transaminitis. HOSPITAL COURSE: 49-year-old W with a history of COPD/Asthma, WANDY, alpha-1 antitrypsin deficiency, unprovoked PE on Eliquis, IDDM, prior history of pancreatitis, history of non obstructive renal calculi, who presents with worsening of chest/epigastric pain and right upper quadrant pain associated with nausea and vomiting. She was found to have worsening transaminitis and mildly elevated lipase. CT abdomen did not show any evidence of acute pancreatitis. She is being evaluated for transaminitis. Transaminitis and elevated lipase/ elevated AMA Will need liver biopsy s/p cholecystectomy, hepatic steatosis in CT abd. patient does not have pancreatitis Had EGD and Colonoscopy no abnormality expect for some internal hemorrhoids. MRCP x 2 before showed mild CBD and intrahepatic biliary dilatation HepA, Hep B and HepC negative. Ferritin not elevated. ERCP no blockage however an CBD stent was placed empirically to see if there is any improvement of symptoms in [address] Schroeder. Alpha-1 antitrypsin deficiency followed by Dr. Mccurdy. No supplementation needed recently COPD/asthma: no evidence of acute exacerbation continue home montelukast, albuterol PRN Fibromyalgia /Chronic pain: on norco Dyslipidemia Obesity/ Obstructive sleep apnea CPAP Hypertension: amlodipine and lisinopril Hypothyroidism: Synthroid GERD: PPI Seasonal allergies: cetirizine Chronic Constipation on miralax, colace, senna Migraine headaches: sumatriptan prn and Topamax Diabetes mellitus continue home meds , insulin, trulicity PTSD/mood disorder continue venlafaxine and buspar, prazocin History of unprovoked PE on eliquis Recent history of kidney stones: on norco, flomax DISCHARGE MEDICATIONS: Please see below. ALLERGIES: Please see below. PHYSICAL EXAMINATION ON DISCHARGE: VITAL SIGNS: Please see below. General Exam: Positive: Alert, Cooperative, No Acute Distress Eye Exam: Positive: PERRLA, Conjunctiva & lids normal, EOMI; Negative: Sclera icteric ENT Exam: Positive: Atraumatic, Mucous membr. moist/pink, Pharynx Normal Neck Exam: Positive: Supple; Negative: JVD, thyromegaly Chest Exam: Positive: Clear to auscultation, Diminished Heart Exam: Positive: Rate Normal, Regular Rhythm, Normal S1, Normal S2; Negative: Murmurs, Rubs Abdomen Exam: Positive: Normal bowel sounds, Soft, Tenderness (right upper quadrant) Extremity Exam: Negative: Clubbing, Cyanosis, Edema Skin Exam: Positive: Nl turgor and temperature; Negative: Rash, Breakdown Neuro Exam: Positive: Normal Gait, Normal Speech, Strength at 5/5 X4 ext, Normal Tone LABORATORY DATA: Please see below. ACTIVITY: [As tolerated]. DIET: Carb consistent DISPOSITION: 01 Home, Self-Care. DISCHARGE INSTRUCTIONS: PMD in 2 weeks, [facility] in 1 month DISCHARGE CONDITION: [Stable]. TIME SPENT ON DISCHARGE:35 minutes. Vital Signs/I&Os Vital Signs Date Time Temp Pulse Resp B/P (MAP) Pulse Ox O2 Delivery O2 Flow Rate FiO2 12/10/19 10:00 96.7 74 14 134/89 (104) 96 Room Air 12/09/19 23:58 2.0 I&O- Last 24 Hours up to 6 AM 12/10/19 06:00 Intake Total 2500 ml Output Total 3000 ml Balance -500 ml Laboratory Data Labs 24H Laboratory Tests 2 12/09/19 17:43: Bedside Glucose (Misc Panel) 283H 12/09/19 20:44: Bedside Glucose (Misc Panel) 439H 12/10/19 05:16: Immature Granulocyte % (Auto) 0.5, Neutrophils (%) (Auto) 60.2, Lymphocytes (%) (Auto) 30.9, Monocytes (%) (Auto) 7.8H, Eosinophils (%) (Auto) 0.2, Basophils (%) (Auto) 0.4, Neutrophils # (Auto) 6.6, Lymphocytes # (Auto) 3.4, Monocytes # (Auto) 0.9H, Eosinophils # (Auto) 0.0, Basophils # (Auto) 0.0, Nucleated Red Blood Cells % (auto) 0.0, Anion Gap 7L, Glomerular Filtration Rate > 60.0, Calcium Level 9.6, Total Bilirubin 0.3, Aspartate Amino Transf (AST/SGOT) 42H, Alanine Aminotransferase (ALT/SGPT) 113H, Alkaline Phosphatase 180H, Total Protein 6.7, Albumin 3.2, Albumin/Globulin Ratio 0.9L 12/10/19 11:20: Bedside Glucose (Misc Panel) 323H, Methicillin-Resist S.aureus DNA PCR NOT DETECTED CBC/BMP Laboratory Tests 12/10/19 05:16 FSBS Laboratory Tests Test 12/09/19 17:43 12/09/19 20:44 12/10/19 11:20 Range/Units Bedside Glucose (Misc Panel) 283 439 323 70-105 MG/DL Discharge Medications Scheduled Apixaban (Eliquis) 5 Mg Tablet, 5 MG PO BID, (Reported) Buspirone HCl (Buspirone HCl) 30 Mg Tablet, 30 MG PO BID, (Reported) Cetirizine HCl (Cetirizine HCl) 10 Mg Tab, 10 MG PO DAILY, (Reported) Cholecalciferol (Vitamin D3) (Vitamin D3) 25 Mcg Capsule, 25 MCG PO DAILY, (Reported) Dulaglutide (Trulicity) 0.75 Mg/0.5 Ml Pen.injctr, 0.75 MG SC QWEEK, (Reported) TUESDAYS Ferrous Sulfate (Ferrous Sulfate) 325 Mg Tablet, 325 MG PO DAILY, (Reported) Gabapentin (Gabapentin) 600 Mg Tablet, 600 MG PO TID, (Reported) Insulin Glargine,Hum.rec.anlog (Basaglar Kwikpen U-100) 100 Unit/1 Ml Insuln.pen, 70 UNITS SC BID, (Reported) Insulin Human Regular (Humulin R) 1 Units/0.01 Ml Soln, 1 DOSE SC ACHS, (Reported) PER SLIDING SCALE Levothyroxine Sodium (Synthroid) 25 Mcg Tab, 25 MCG PO DAILY, (Reported) Lisinopril (Lisinopril) 10 Mg Tab, 10 MG PO DAILY, (Reported) Montelukast Sodium (Montelukast Sodium) 10 Mg Tablet, 10 MG PO DAILY, (Reported) Pantoprazole Sodium (Protonix) 40 Mg Tab, 40 MG PO BID, (Reported) Prazosin Hcl (Prazosin HCl) 1 Mg Capsule, 4 MG PO QHS, (Reported) Tamsulosin Hcl (Tamsulosin HCl) 0.4 Mg Capsule, 0.4 MG PO DAILY, (Reported) Tizanidine HCl (Tizanidine HCl) 4 Mg Tab, 4 MG PO TID, (Reported) Topiramate (Topiramate) 50 Mg Tab, 50 MG PO BID, (Reported) Venlafaxine HCl (Venlafaxine HCl ER) 150 Mg Tab.er.24, 150 MG PO DAILY, (Reported) Scheduled PRN Albuterol Sulfate (Ventolin Hfa) 108 Mcg/Act Aer, 2 PUFFS INH Q4H PRN for SHORTNESS OF BREATH, (Reported) Docusate Sodium (Colace) 100 Mg Cap, 100 MG PO DAILY PRN for CONSTIPATION, (Reported) Ipratropium/Albuterol Sulfate (Iprat-Albut 0.5-3(2.5) mg/3 ml) 3 Ml Ampul.neb, 1 VIAL NEB Q4H PRN for SHORTNESS OF BREATH, (Reported) Ondansetron (Ondansetron Odt) 4 Mg Tab.rapdis, 4 MG PO Q6-8H PRN for nausea/vomiting, (Reported) Polyvinyl Alcohol (Artificial Tears) 1.4 % Debora, 1 DROP OU BID PRN for DRY EYES, (Reported) Sumatriptan Succinate (Sumatriptan Succinate) 50 Mg Tab, 50 MG PO BID PRN for MIGRAINE, (Reported) Tramadol HCl (Tramadol HCl) 50 Mg Tablet, 50 MG PO BID PRN for PAIN, (Reported) Triamcinolone Acetonide (Triamcinolone Acetonide) 0.1 % Lot, 1 DOSE EXT BID PRN for RASH, (Reported) USES ON ELBOWS AND FINGERS Allergies Coded Allergies: meclizine (Verified Allergy, Severe, shock, 09/18/19) prednisone (Verified Allergy, Intermediate, hives, 09/18/19) PT STATES ONLY REACTION TO A TRANSPORT RN THE TABLETS; LIQUID FORMULATIONS ARE FINE metformin (Verified Adverse Reaction, Intermediate, kidney problems, 09/18/19) THERON GUZMÁN MD Dec 10, 2019 16:51
--- NOTE | 2019-12-15 12:42 | IPN ---
DATE: 12/06/2019 SUBJECTIVE: Patient had intractable nausea and vomiting, epigastric and right upper quadrant abdominal pain yesterday. No fever or chills overnight. Still NPO status. PHYSICAL EXAMINATION: VITAL SIGNS: Temperature 97.6, pulse is 69, respiratory rate 16, blood pressure is 106/70, 95% on room air. GENERAL: Awake, alert and oriented to person, place and time. HEENT: Anicteric. No jaundice. LUNGS: Clear to auscultation. No wheezing, rales or rhonchi. HEART: S1 and S2 sinus rhythm. ABDOMEN: Soft, slightly tender in the epigastric and right upper quadrant. No rebound or guarding. Positive bowel sounds. Obese abdomen. No hepatosplenomegaly. EXTREMITIES: No cyanosis, clubbing or pitting edema. LABORATORY DATA: White count 6.8, hemoglobin 12, hematocrit 36, platelet count is 206,000. 12/06/2019 blood work is still pending. ASSESSMENT AND PLAN: This is a 49-year-old female admitted on 12/03 with complaints of epigastric abdominal pain with a history of alpha I antitrypsin deficiency, reflux, fibromyalgia, anxiety, depression, PTSD, dyslipidemia, fatty liver, hypothyroidism, migraine headaches, insomnia, diabetes, WANDY and COPD, admitted due to elevated lipase and epigastric pain, admitted for possible acute pancreatitis but CT of the abdomen only shows constipation and hepatic steatosis. IMPRESSION: 1. Abdominal pain. 2. Hypertension. 3. Hypothyroidism. 4. Reflux. 5. Seasonal allergies. 6. Chronic constipation. 7. Migraine headaches. 8. Chronic transaminitis in the setting of alpha I antitrypsin deficiency. 9. History of PE, on chronic Eliquis. 10. COPD and asthma. 11. History of kidney stones. 12. Pancreatitis. Patient is continued on IV fluids, clears diet, MRCP on 12/04 showed stable extrahepatic and mild central intrahepatic biliary ductal dilatation. No evidence of choledocholithiasis, prior cholecystectomy and fatty liver. GI: Dr. Schroeder, has been consulted for EGD and possible ERCP. Continue on all other home medications. MTDD
--- NOTE | 2019-12-16 10:37 | REP ---
ECRP: 29 VIEWS HISTORY: Pancreatitis. Transaminitis. FLUOROSCOPY TIME: 5 minutes 15 seconds reported. FINDINGS: A sequence of 29 kaea-phher-nyni fluoroscopically obtained spot radiographs of the right upper quadrant document endoscopic cannulation, contrast injection, and stent position in the common bile duct. There are clips at the cystic duct post cholecystectomy. Visualized intrahepatic bile ducts are unremarkable. MTDD
== END 2019-12-10 12:03 | disposition home or self-care (01) | DRG 861 ==
LOC: M ED 16:50 → M ED INP 21:19 → ENRESERV 21:55 → M MSPAV 23:22
PROVIDERS: ADMIT Internal Medicine; ATTEND Internal Medicine Nephrology
PROC: 0DJD8ZZ Inspection of Lower Intestinal Tract, Via Natural or Artificial Opening Endoscopic (ICD-10-PCS; 2019-12-07)
PROC: 0F798DZ Dilation of Common Bile Duct with Intraluminal Device, Via Natural or Artificial Opening Endoscopic (ICD-10-PCS; 2019-12-07)
PROC: 0DJ08ZZ Inspection of Upper Intestinal Tract, Via Natural or Artificial Opening Endoscopic (ICD-10-PCS; principal; 2019-12-07 11:56)
DX: R74.0 Nonspecific elevation of levels of transaminase and lactic acid dehydrogenase [LDH] (principal); E88.01 Alpha-1-antitrypsin deficiency; I10 Essential (primary) hypertension; E11.9 Type 2 diabetes mellitus without complications; J44.9 Chronic obstructive pulmonary disease, unspecified; E66.9 Obesity, unspecified; Z68.36 Body mass index [BMI] 36.0-36.9, adult; Z86.711 Personal history of pulmonary embolism; Z79.01 Long term (current) use of anticoagulants; Z79.4 Long term (current) use of insulin; Z79.899 Other long term (current) drug therapy; K21.9 Gastro-esophageal reflux disease without esophagitis; M79.7 Fibromyalgia; F32.9 Major depressive disorder, single episode, unspecified; F41.9 Anxiety disorder, unspecified; F43.10 Post-traumatic stress disorder, unspecified; E03.9 Hypothyroidism, unspecified; G43.909 Migraine, unspecified, not intractable, without status migrainosus; G47.33 Obstructive sleep apnea (adult) (pediatric); E78.5 Hyperlipidemia, unspecified

== ENCOUNTER → 2020-03-29 | Outpatient (CLI) | payer OTHER ==
[~2020-03-29] MED LIST changes: +GABA-282 PO; -GABA-843 PO; -MONT10TA4 PO; +MONT5TAB2 PO
[2020-03-29 12:48] LABS: BASO # 0.1 10^3/uL (0.0-0.2); EOS # 0.3 10^3/uL (0.0-0.5); EOS % 3.8 % (0.0-3.0); HEMATOCRIT 41.3 % (36.0-47.0); HEMOGLOBIN 13.2 g/dl (12.0-15.5); LYMPH # 3.2 10^3/uL (1.5-5.0); LYMPH % 41.2 % (24.0-44.0); MEAN CORPUSCULAR HEMOGLOBIN 32.8 pg (27.0-33.0); MEAN CORPUSCULAR VOLUME 102.7 fl (80.0-96.0); MONO # 0.6 10^3/uL (0.0-0.8); MONO % 8.2 % (0.0-5.0); NEUTROPHILS # 3.5 10^3/uL (1.5-8.5); NEUTROPHILS % 45.3 % (36.0-66.0); PLATELET COUNT, AUTOMATED 248 10^3/uL (150-450); RED BLOOD COUNT 4.02 10^6/uL (4.00-5.40); WHITE BLOOD COUNT 7.7 10^3/uL (4.0-10.0)
[2020-03-29 13:14] LABS: INR 1.04; PROTHROMBIN TIME 13.8 SECONDS (12.5-14.3)
[2020-03-29 15:01] LABS: ALBUMIN 3.7 GM/DL (3.2-5.2); ALT/SGPT 161 U/L (12-78); AMYLASE 41 U/L (25-115); BILIRUBIN,TOTAL 0.3 MG/DL (0.2-1.0); BLOOD UREA NITROGEN 15 MG/DL (7-18); CARBON DIOXIDE LEVEL 24 MEQ/L (21-32); CHLORIDE LEVEL 104 MEQ/L (98-107); CREATININE FOR GFR 0.85 MG/DL (0.55-1.30); GLOMERULAR FILTRATION RATE > 60.0 (>58); GLUCOSE, FASTING 403 MG/DL (70-100); LIPASE 287 U/L (73-393); POTASSIUM SERUM 3.9 MEQ/L (3.5-5.1); SODIUM LEVEL 134 MEQ/L (136-145); TOTAL PROTEIN 7.3 GM/DL (6.4-8.2)
[2020-04-01 06:08] LABS: ANTI-MITOCHONDRIAL ANTIBODY 157.9 Units (0.0-20.0)
== END ==
LOC: M LAB 10:01
PROVIDERS: ATTEND Internal Medicine Gastroenterology
DX: K85.90 Acute pancreatitis without necrosis or infection, unspecified (principal)

== ENCOUNTER → 2020-03-30 | Outpatient (CLI) | payer OTHER | LOC: M LABSMTC 11:49 | PROVIDERS: ATTEND Anesthesiology | DX: Z01.812 Encounter for preprocedural laboratory examination (principal); Z20.822 Contact with and (suspected) exposure to COVID-19 ==

== ENCOUNTER 2020-03-31 13:23 | Day surgery (SDC) | payer OTHER ==
[~2020-03-31] VITALS: Ht 162.6 cm; Wt 94.3 kg
[~2020-03-31 13:23] MED LIST changes: +NS 1,000 ML IV ONE
--- OUTSIDE RECORDS SUMMARY | 2020-03-31 13:27 | CCD ---
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 Active 3 3478626 Problem Migraine without status migr ainosus, not intractable, unspecified migraine type G43.909 Active 60700205 Problem Tension headache G44.209 Active 322718414 Problem 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 379283597 Problem Nightmares REM-sleep type F51.5 Active 769403 009 Problem Severe persistent asthma, unspecified whether complicated J45.50 Active 210341983 Problem PTSD (post-traumatic stress disorder) F43.10 Ac tive 67101289 Problem Bilateral low back pain with right-sided sciatica, unspecified chronicity M54.41 Active 672513019 Problem Insomnia, unspecified type G47.00 Active 71277 2000 Problem WANDY (obstructive sleep apnea) G47.33 Active 78 336092 Problem Arm paresthesia, left R20.2 Active 10203104 Problem Sinusitis, unspecified chronicity, unspecified location J32.9 Active 00351650 Problem Hyperlipidemia, unspecified hyperlipidemia type E7 8.5 Active 50839859 Problem Port-a-cath in place Z95.828 Active 317756168 Problem Psoriasis L40.9 Active 9911926 Problem Leukocytosis, unspecified type D72.829 Active 1 86079212 Problem Pulmonary embolism, unspecif ied chronicity, unspecified pulmonary embolism type, unspecified whether acute cor pulmonale present I 26.99 Active 04904687 Problem Pain in thoracic spine M54.6 Active 769036012 057882 Problem Other iron deficiency anemia D50.8 Active 875 12813 Problem Type 2 diabetes mellitus without complications E11 .9 Active 29540740 Problem Exacerbation of asthma, unsp ecified asthma severity, unspecified whether persistent J45.901 Active 565930012 Problem Hypothyroidism, unspecified type E03.9 Active 63325122 Problem 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 Active 871180736 Problem Other chronic pain G89.29 Active 17382757 Problem Anxiety disorder, unspecified type F41.9 Activ e 974463951 Problem Post-traumatic stress disorder, unspecified F43.10 Active 66041033 Problem Major depressive disorder, recurrent, mild F33.0 Active 328180231 ALLERGIES Allergen (clinical drug ingredient) Drug/Non Drug Allergy do cumented on EMR Reaction Allergy Type Onset Date Status PredniSONE Hives Drug Allergy Active metformin Metformin HCl(ND Code:[address]-53) kidneys Drug Vijay rgy Active meclizine Meclizine HCl(ND Code:[address]-73) Anaphylaxis Drug All ergy Active ENCOUNTERS from 1970 to 2020-02-08 Encounter Location Date Provider Diagnosis [address] [address] Jan, Oswaldo Anderson IMMUNIZATIONS Vaccine Route Administration Date Status Influenza (18 yrs & older) Flublok IM Intramuscular Dec 22, 2017 Administered Toradol 30mg/1mL (Ketorolac) IM Intramuscular Feb 16, 2018 Ad ministered Toradol 60mg/2mL (Ketorolac) IM Intramuscular July 14, 2017 Ad ministered Depo-Medrol 80mg (Methylprednisolone Acetate) IM Intramuscular A ug 2018 Administered Depo-Medrol 80mg (Methylprednisolone Acetate) IM Intramuscular M arch 2017 Administered Depo-Medrol 40mg (Methylpredisolone Acetate) IM Intramuscular [facility] 2017 Administered Pneumococcal Adult 0.5mL (Pneumovax 23) Unknown Mar 17, 2012 Administered Influenza (6mo & up) Fluzone Unknown Mar 03, 2017 Adm inistered SOCIAL HISTORY Tobacco Use: Social History Observation Description Date Details (start date - stop date) Former Smoker Sex Assigned At : Social History Observation Description Sex Assigned At Unknown Education: Question Answer Notes Level of Education: High School Audit Question Answer Notes Total Score: 0 Interpretation: Alcohol Education Language: Question Answer Notes Languages spoken: Spanish Presybeterian: Question Answer Notes Presybeterian No congregation beliefs that would impact health care. Sexual Hx: Question Answer Notes Had sex in the last 12 months (vaginal, oral, or anal)? No Have you ever had an STD? No Drug and Alcohol Question Answer Notes Total Score: 0 Interpretation: No problems reported Alcohol Screening: Question Answer Notes Did you have a drink containing alcohol in the past year? Ye s Points 2 Interpretation Negative How often did you have a drink containing alcohol in t he past year? Two to four times a month (2 points) BMI Care Goal Follow-Up Question Answer Notes Above Normal BMI Follow-Up Giving encouragement to exercise Tobacco Use: Question Answer Notes Are you a: former smoker How long has it been since you last smoked? 5-10 years REASON FOR REFERRAL No Information VITAL SIGNS No information MEDICATIONS Medication SIG (Take, Route, Frequency, Duration) Notes Start Da te End Date Status Ketorolac Tromethamine 10 MG 1 tablet with food or mil k as needed Orally every 6 hrs for 5 day(s) Not-Taking Lancets - as directed BID Dx: E11.9 for 30 days Dec, 020 Active Tramadol HCl 50 MG 1 tablet as needed Orally Once a day for 5 da ys Aug, Active Symbicort 160-4.5 MCG/ACT 2 puffs Inhalation Twice a day for 30 days Active Polyethylene Glycol - as directed dissolve 17 gram s of powder in luquid and drink once daily for constipation May, Active BusPIRone HCl 30 MG 1 tablet orally twice daily for 90 days Active Doxycycline Monohydrate 100 MG 1 capsule Orally bid for 7 days Apr, Not-Taking Glucometer as directed Daily Dx: E11.9 for 999 days Dec Active Prazosin HCl 1 MG 3 capsule Orally before bedtime for 30 days Apr, Active Zofran 4 MG 1 tablet Orally every 6 hours as needed for 10 days Apr, Active Eliquis 5 MG 1 tab Orally once daily Active Lisinopril 10 MG 1 tablet Orally Once a day for 90 Active Blood Glucose Test - as directed In Vitro bid for 30 days Active Basaglar KwikPen 100 UNIT/ML 80 units subcutaneously twice daily for 30 days Active Cholecalciferol 1000 UNIT 1 capsule Orally Once a day for 30 days Active Probiotic - 1 capsule Orally before bedtime Active Topiramate 50 MG 1 tablet Orally Twice a day for 90 Active Gabapentin 600 MG 1 tablet Orally tid for 90 Active Trulicity 0.75 MG/0.5ML as directed Subcutaneous weekly for 28 Active Lancets - as directed bid for 30 days Active Triamcinolone Acetonide 0.1 % 1 application to affecte d area Externally Twice a day to right elbow for 7 days Mar, Ac tive Venlafaxine HCl ER 150 MG Take 1 capsule every morning for 90 Active Protonix 40 MG 1 tablet Orally twice a day for 90 Active Sumatriptan Succinate 50 MG 1 tablet as needed Orally Twice a day for migraine Active Ipratropium-Albuterol 0.5-2.5 (3) MG/3ML 3 ml as neede d Inhalation every 4 hours for SOB May, Active Humulin R 100 UNIT/ML per sliding scale Injection QID before meals and before bedtime PRN; MDD: 100 units May, Acti ve Ventolin HFA 108 (90 Base) MCG/ACT 2 puffs as needed I nhalation every 4 hrs for 30 days Active PrednisoLONE 15 MG/5ML 15 ml Orally as directed tapeing dose Apr, Not-Taking Diflucan 150 MG 1 tablet Orally Once for 1 days May, 20 Not-Taking Iron 325 (65 Fe) MG 1 tablet Orally Once a day for Active Artificial Tear 1 gtt Ophthalmic twice daily as needed for dry eyes Active AmLODIPine Besylate 10 MG 1 tablet Orally Once a day for 30 day(s) Active Levothyroxine Sodium 25 MCG 1 tablet in the morning on an empty stomach Orally Once a day for Active Singulair 10 MG 1 tablet Orally Once a day for 90 Active Docusate Sodium 100 MG 1 capsule as needed Orally Once a day for 30 Active Hydrocodone-Acetaminophen 5-325 MG 1 tablet as needed Orally every 6 hrs for 28 days Dec, Active Pen [place] as directed bid for 30 days Active Cetirizine HCl 10 MG 1 tablet Orally Once a day for 30 Active Tizanidine HCl 4 MG 1 tablet as needed Orally Three times a day for 2 8 Active PROCEDURES No Information RESULTS No Results REASON FOR VISIT PA Buspirone HCl 30mg tablets, 270/90 MEDICAL (GENERAL) HISTORY Type Description Date Medical History Alpha 1 Antitrypsin deficiency Medical History Anxiety Medical History Depression Medical History Hypertension, goal 140/90 Medical History Diabetes, goal A1C 7% Medical History diabetic neuropathy Medical History PTSD Medical History Chronic low back pain Medical History Asthma Medical History WANDY Medical History History of pancreatitis Medical History Cervical Radiculopathy C6-C7 EMG 10/2017 Medical History Pulmonary Embolism, Eliquis Surgical History Gallbladder Surgical History Appendix Surgical History Tonsils Surgical History C section x3 Surgical History metal dino, left femur, removed Surgical History Colonoscopy, 5 years ago, no polpys, for anemia Surgical History port removed 10/2018 Surgical History stent in pancreas 12/09/2019 Hospitalization History COPD/ Asthma 06/2017 Hospitalization History COPD 07/20/17-07/22/17 Hospitalization History pneumonia 09/14/2017- 8 Hospitalization History COPD 10/19/2017- 8 Hospitalization History Asthma 12/17/2017-2017 Hospitalization History major depressive disorder 04/28/2018- 05/01/2018 Hospitalization History Asthma 09/25/[address] [facility] asthma 05/19/2019- 0 Hospitalization History [facility] pancreatitis 12/04/19- 0 Goals Section No Information Health Concerns No Information MEDICAL EQUIPMENT No Information MENTAL STATUS No Information FUNCTIONAL STATUS No Information ASSESSMENTS No Information PLAN OF TREATMENT Medication Medication Name Sig Start Date Stop Date Hydrocodone-Acetaminophen 5-325 MG 1 tablet as needed Orally every 6 hrs for 28 days Dec, Tizanidine HCl 4 MG 1 tablet as needed Orally Three times a day for 28 Protonix 40 MG 1 tablet Orally twice a day for 90 Singulair 10 MG 1 tablet Orally Once a day for 90 Trulicity 0.75 MG/0.5ML as directed Subcutaneous weekly for 28 Blood Glucose Test - as directed In Vitro bid for 30 days Venlafaxine HCl ER 150 MG Take 1 capsule every morning for 90 Levothyroxine Sodium 25 MCG 1 tablet in the morning on an empty stomach Orally Once a day for 90 Glucometer as directed Daily Dx: E11.9 for 999 days Dec, Lancets - as directed BID Dx: E11.9 for 30 days Dec, Iron 325 (65 Fe) MG 1 tablet Orally Once a day for 90 Lisinopril 10 MG 1 tablet Orally Once a day for 90 BusPIRone HCl 30 MG 1 tablet orally twice daily for 90 days Topiramate 50 MG 1 tablet Orally Twice a day for 90 Insurance Providers Payer Name Payer Address Payer Phone Insured Name Patient Relati onship to Insured Coverage Start Date Coverage End Date FOR[facility]LY [facility]POR[facility] CLAIMS [address]PT [address] [facility] [phone] PATY CRYSTAL self
--- OUTSIDE RECORDS SUMMARY | 2020-03-31 13:27 | CCD ---
Continuity of Care Document (CCD) Created on: 03/29/2020 Hannah Vail External Reference #: [id number] : 1970 Sex: Female Author Author Hannah SCHROEDER MD Organization Unknown Address [address] [place] [address] Phone [phone] Care Team Providers Care Unloader Operator Name Role Phone Oswaldo Anderson D.O. AUTM [phone] Problems Active Problems Provider Date Difficulty breathing NATALYA Garcia Onset: 08/27/2017 Disturbance of consciousness NATALYA Garcia Onset: 08/15 Ex-smoker NATALYA Garcia Onset: 08/27/2017 Asthma without status asthmaticus NATALYA Gracia Onset: 2017 Obstructive sleep apnea syndrome NATALYA Garcia Onset: 2017 Uncomplicated severe persistent asthma Rupesh Mccurdy D.O. O nset: 11/05/2017 Exacerbation of severe persistent asthma NATALYA Garcia Onset: 09/30/2018 H/O: pulmonary embolus Rupesh Mccurdy D.O. Onset: 01/20/2019 Social History Type Date Description Comments Sex Unknown ETOH Use Rarely Consumed Alcoholic Bevera ges Tobacco Use Start: 03/17/85 End: 03/17/10 Patient is a forme r smoker 1 ppd x 20+ yrs Quit 2010 Smoking Status Reviewed: 04/16/19 Patient is a former smoker 1 ppd x 20+ yrs Quit 2010 Exercise Type/Frequency Does not exercise Allergies, Adverse Reactions, Alerts Active Allergies Reaction Severity Comments Date Metformin kidney function problems Prednisone allergic to oral forms, stat es she gets hives 08/27/2017 Antivert Anaphylaxis 08/27/2017 Medications Active Medications SIG Qnty Indications Ordering Provide r Date Ursodiol 500mg Tablets 1 by mouth three times a day (primary biliary cholangitis) 90tabs Fercho Schroeder MD 03/29/2020 Pulmicort Flexhaler 180mcg/Act Aer osol 2 puffs inhaled twice a day 120units NATALYA Garcia 06/18 CPAP 6cm lcw--Resmed NATALYA Garcia Ranitidine HCL 150mg Capsules 1 tab by mouth hs Unknown Prazosin HCL 1mg Capsules 3 by mouth hs Unknown Topiramate 50mg Tablets daily Unknown Iron 325(65Fe) mg Tablets take 1 tablet by mouth daily. Unknown Eliquis 5mg Tablets 1 by mouth twice a day--hosp hx: pe 60tabs Rupesh Mccurdy, D.O. Ventolin HFA 108(90Base) mcg/Act A erosol 2 puffs every 4 hours as needed 8gm Unknown Buspirone HCL 10mg Tablets 1 by mouth three times a day Unknown Tizanidine HCL 2mg Capsules 1 po tid Unknown Gabapentin 300mg Capsules 1 p o tid Unknown Protonix 40mg Tablets DR 1 by mouth every day Unknown Gemfibrozil 600mg Tablets 1 by mouth twice a day Unknown Hydrochlorothiazide 25mg Tablets 1 by mouth every day Unknown Lisinopril 10mg Tablets 1 by mouth every day Unknown Levothyroxine Sodium 25mcg Tablets 1 by mouth every day Unknown Cymbalta 60mg Caps DR Part 1 by mouth every day Unknown Symbicort 160-4.5mcg/Act Aerosol 2 puff twice a day Unknown Singulair 10mg Tablets 1 by mouth every night at bedtime Unknown Colace 100mg Capsules 1 tab by mouth as needed Unknown Humulin R 100Unit/ML Solution as directed per sliding scale Unknown Ipratropium Nabb/Albuterol Sulfate 0.5-2.5(3)mg/3ML Solution 1 vial via neb four times a day as needed Unknown Sumatriptan Succinate 50mg Tablets 1 by mouth as needed Unknown Basaglar Kwikpen 100 Unit/ML Solution Pen-Inject 60 units bid Unknown Immunizations Description No Information Available Vital Signs Date Vital Result Comment 03/29/2020 9:02am BP Systolic 156 mmHg BP Diastolic 109 mmHg Height 64 inches 5'4" Weight 207.00 lb BMI (Body Mass Index) 35.5 kg/m2 [place] Body Weight 120 lb Weight 93.895 kg BSA (Body Surface Area) 1.99 m2 12/07/2019 3:35pm BP Systolic 154 mmHg BP Diastolic 94 mmHg Respiratory Rate 18 /min Body Temperature 97.6 F Results Description No Information Available Procedures Description No Information Available Medical Devices Description No Information Available Encounters Type Date Location Provider Dx Diagnosis Office Visit 03/29/2020 9:00a [facility] Fercho gilliam MD K85.90 Acute pancreatitis without necrosis or i nfection, unsp E88.01 Qnggm-2-jerzppgumkq deficien cy R94.5 Abnormal results of liver fu nction studies K74.3 Primary biliary cirrhosis Assessments Date Code Description Provider 03/29/2020 K85.90 Acute pancreatitis without necro sis or infection, unspecified Fercho Schroeder MD 03/29/2020 E88.01 Yyxcy-0-ymporgpmlzo deficiency D zaire Schroeder MD 03/29/2020 R94.5 Abnormal results of liver functi on studies Fercho Schroeder MD 03/29/2020 K74.3 Primary biliary cirrhosis Fercho Schroeder MD 12/07/2019 R10.13 Epigastric pain Fercho Schroeder MD 12/07/2019 R11.0 Nausea Fercho Schroeder MD 12/07/2019 R94.5 Abnormal results of liver functi on studies Fercho Schroeder MD 12/07/2019 E88.01 Kvqfb-1-smlshtuffdd deficiency Isrrael Schroeder MD 12/07/2019 E66.9 Obesity, unspecified Fercho castillo MD Plan of Treatment Future Appointment(s):* 03/31/2020 4:00 am - Fercho Schroeder MD at [facility] * 04/24/2020 10:30 am - Rupesh Mccurdy D.O. at [facility] 03/29/2020 - Fercho Schroeder MD* K85.90 Acute pancreatitis without necrosis or infection, unspecified * E88.01 Phigz-8-wyhrbnlkjbc deficiency * R94.5 Abnormal results of liver function studies * K74.3 Primary biliary cirrhosis * * New Labs:* CBC With Differential, Ordered: 03/29/20 * Comprehensive Metabolic Profil, Ordered: 03/29/20 * Prothrombin Time/Inr, Ordered: 03/29/20 * Alpha Fetoprotein Tumor Quant, Ordered: 03/29/20 * Anti-Mitochondrial Antibody, Ordered: 03/29/20 * Amylase & Lipase, Ordered: 03/29/20 * Igg Subclass 4, Ordered: 03/29/20 * Alpha 1 Antitrypsin, Ordered: 03/29/20 * New Orders:* EGD, Ordered: 03/29/20 * Comments:* Pt with recurrent hospitalisations for acute pancreatitis. had mildly dilated biliary tree, for which she had ERCP. ERCP showed no obstructions, no stones--normal. I placed a biliary stent to see if pancreatitis episodes would stop (R/O microlithiasis/SOD). I did not perform sphincterotomy.She is back after 4 month Hiatus in [facility]. Has had recurrent pancreatitis attacks while in [facility]. (stent is not preventing pancreatitis). Pt here to pull stent.Other labs showed elevated AMA. her LFT are abnormal. Jarett to be started for presumed PBC. (pt on Eliquis)She has A1At deficit as well. * Recommendations:* 1) will remove biliary stent via EGD luis manuel (does not need to stop eliquis) 2) Will refer to [facility] for further input in her management/diagnosis of recurrent pancreatitis episodes Functional Status Description No Information Available Mental Status Mental Condition Comment Date Status Cognitive ability not impaired A ctive Referrals Description No Information Available
--- OUTSIDE RECORDS SUMMARY | 2020-03-31 13:27 | CCD ---
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 Care Crystal Slicer Name Role Phone Oswaldo Anderson Unavailable PROBLEMS Type Condition ICD9-CM Code BCQ48-SN Code Onset Dates Condition S tatus SNOMED Code Notes Problem Depression, unspecified depression type F32.9 Active 70837587 Problem Anxiety F41.9 Active 40203346 Problem Hypertension, unspecified type I10 Active 3 3095033 Problem Gastroesophageal reflux disease without esophagitis K21.9 Active 456486137 Problem Pfqif-4-isuclemtiho deficiency E88.01 Active 3 1368620 Problem Migraine without status migr ainosus, not intractable, unspecified migraine type G43.909 Active 22180822 Problem Tension headache G44.209 Active 489678580 Problem 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 947975195 Problem Nightmares REM-sleep type F51.5 Active 503361 009 Problem Severe persistent asthma, unspecified whether complicated J45.50 Active 858813348 Problem PTSD (post-traumatic stress disorder) F43.10 Ac tive 37143512 Problem Bilateral low back pain with right-sided sciatica, unspecified chronicity M54.41 Active 501947446 Problem Insomnia, unspecified type G47.00 Active 82187 2000 Problem WANDY (obstructive sleep apnea) G47.33 Active 78 656795 Problem Arm paresthesia, left R20.2 Active 42642658 Problem Sinusitis, unspecified chronicity, unspecified location J32.9 Active 52338952 Problem Hyperlipidemia, unspecified hyperlipidemia type E7 8.5 Active 29573316 Problem Port-a-cath in place Z95.828 Active 874287094 Problem Psoriasis L40.9 Active 6815719 Problem Leukocytosis, unspecified type D72.829 Active 1 86057179 Problem Pulmonary embolism, unspecif ied chronicity, unspecified pulmonary embolism type, unspecified whether acute cor pulmonale present I 26.99 Active 43516693 Problem Pain in thoracic spine M54.6 Active 936040940 604991 Problem Other iron deficiency anemia D50.8 Active 875 51368 Problem Type 2 diabetes mellitus without complications E11 .9 Active 39563402 Problem Exacerbation of asthma, unsp ecified asthma severity, unspecified whether persistent J45.901 Active 851671836 Problem Hypothyroidism, unspecified type E03.9 Active 25595535 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 Active 028284100 Problem Other chronic pain G89.29 Active 60720996 Problem Anxiety disorder, unspecified type F41.9 Activ e 891493978 Problem Post-traumatic stress disorder, unspecified F43.10 Active 40700550 Problem Major depressive disorder, recurrent, mild F33.0 Active 503948978 ALLERGIES Allergen (clinical drug ingredient) Drug/Non Drug Allergy do cumented on EMR Reaction Allergy Type Onset Date Status PredniSONE Hives Drug Allergy Active metformin Metformin HCl(ND Code:[address]-48) kidneys Drug Vijay rgy Active meclizine Meclizine HCl(ND Code:[address]-95) Anaphylaxis Drug All ergy Active ENCOUNTERS from 1970 to 2020-02-07 Encounter Location Date Provider Diagnosis [facility] [address] [place] [address] Jan, Oswaldo Anderson IMMUNIZATIONS Vaccine Route Administration [...] Administered Depo-Medrol 40mg (Methylpredisolone Acetate) IM Intramuscular [facility] 2017 Administered Pneumococcal Adult 0.5mL (Pneumovax 23) [...] Education Language: Question Answer Notes Languages spoken: Mexican Anabaptism: Question Answer Notes Anabaptism No yazdanism beliefs that would impact health care. Sexual [...] Orally Once a day for 90 Active Artificial Tear 1 gtt Ophthalmic twice daily as needed for dry eyes Active AmLODIPine Besylate 10 MG 1 tablet Orally Once a day for 30 day(s) Active Levothyroxine Sodium 25 MCG 1 tablet in the morning on an empty stomach Orally Once a day for 90 Active Singulair 10 MG 1 tablet Orally Once a day for 90 Active Docusate Sodium 100 MG 1 capsule as needed Orally Once a day for 30 Active Hydrocodone-Acetaminophen 5-325 MG 1 tablet as needed Orally every 6 hrs for 28 days Dec, Active Pen [place] as directed bid for 30 days Active Cetirizine HCl 10 MG 1 tablet Orally Once a day for 30 Active Tizanidine HCl 4 MG 1 tablet as needed Orally Three times a day for 2 8 Active PROCEDURES No Information RESULTS No Results REASON FOR VISIT Prescription MEDICAL (GENERAL) HISTORY Type Description Date Medical [...] 05/01/2018 Hospitalization History Asthma 09/25/18 Hospitalization History [facility] asthma 05/19/2019- 0 Hospitalization History [facility] pancreatitis 12/04/19- 0 Goals Section No Information [...] Insured Coverage Start Date Coverage End Date [facility] [employer]POR[employer] CLAIMS DEPT [address] [facility] [phone] PATY CRYSTAL self
--- OUTSIDE RECORDS SUMMARY | 2020-03-31 13:28 | CCD ---
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 Active 3 9823033 Problem Migraine without status migr ainosus, not intractable, unspecified migraine type G43.909 Active 29670715 Problem Tension headache G44.209 Active 014922118 Problem 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 130992157 Problem Nightmares REM-sleep type F51.5 Active 638798 009 Problem Severe persistent asthma, unspecified whether complicated J45.50 Active 482139617 Problem PTSD (post-traumatic stress disorder) F43.10 Ac tive 73146186 Problem Bilateral low back pain with right-sided sciatica, unspecified chronicity M54.41 Active 098294800 Problem Insomnia, unspecified type G47.00 Active 46636 2000 Problem WANDY (obstructive sleep apnea) G47.33 Active 78 971498 Problem Arm paresthesia, left R20.2 Active 93802748 Problem Sinusitis, unspecified chronicity, unspecified location J32.9 Active 17068226 Problem Hyperlipidemia, unspecified hyperlipidemia type E7 8.5 Active 58238658 Problem Port-a-cath in place Z95.828 Active 691236129 Problem Psoriasis L40.9 Active 8963619 Problem Leukocytosis, unspecified type D72.829 Active 1 98743306 Problem Pulmonary embolism, unspecif ied chronicity, unspecified pulmonary embolism type, unspecified whether acute cor pulmonale present I 26.99 Active 90565343 Problem Pain in thoracic spine M54.6 Active 385270048 771779 Problem Other iron deficiency anemia D50.8 Active 875 86321 Problem Type 2 diabetes mellitus without complications E11 .9 Active 76576417 Problem Exacerbation of asthma, unsp ecified asthma severity, unspecified whether persistent J45.901 Active 726725650 Problem Hypothyroidism, unspecified type E03.9 Active 61162764 Problem 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 term 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 insulin Z79.4 Active 290231070 Problem Other chronic pain G89.29 Active 49359016 Problem Anxiety disorder, unspecified type F41.9 Activ e 482099367 Problem Post-traumatic stress disorder, unspecified F43.10 Active 61677575 Problem Major depressive disorder, recurrent, mild F33.0 Active 217127411 ALLERGIES Allergen (clinical drug ingredient) Drug/Non Drug Allergy do cumented on EMR Reaction Allergy Type Onset Date Status PredniSONE Hives Drug Allergy Active metformin Metformin HCl(ND Code:[address]-93) kidneys Drug Vijay rgy Active meclizine Meclizine HCl(ND Code:[address]-84) Anaphylaxis Drug All ergy Active ENCOUNTERS from 1972 to 2020-01-11 Encounter Location Date Provider Diagnosis [facility] [address] [place] [address] Dec, Oswaldo Anderson Right upper quadrant abdominal pain R10. 11 ; Elevated liver enzymes R74.8 and Acute biliary pancreatitis, unspecified complication status K85.10 IMMUNIZATIONS Vaccine Route Administration Date Status Influenza (18 yrs & older) Flublok IM Intramuscular Dec 22, 2017 Administered Toradol 30mg/1mL (Ketorolac) IM Intramuscular Feb 16, 2018 Ad ministered Toradol 60mg/2mL (Ketorolac) IM Intramuscular July 14, 2017 Ad ministered Depo-Medrol 80mg (Methylprednisolone Acetate) IM Intramuscular A 2018 Administered Depo-Medrol 80mg (Methylprednisolone Acetate) IM Intramuscular [facility] 2017 Administered Depo-Medrol 40mg (Methylpredisolone Acetate) IM Intramuscular [facility] 2017 Administered Pneumococcal Adult 0.5mL (Pneumovax 23) [...] Education Language: Question Answer Notes Languages spoken: Gabonese Religious: Question Answer Notes Religious No restoration beliefs that would impact health care. Sexual [...] REASON FOR REFERRAL No Information VITAL SIGNS Weight 209 lbs Dec, Height 64 in Dec, BMI 35.87 kg/m2 Dec, Heart Rate 108 /min Dec, Respiratory Rate 18 /min Dec, Temperature 97.8 degrees Fahrenheit Dec, Oximetry 98% Dec, Blood pressure systolic 115 mm Hg Dec, Blood pressure diastolic 84 mm Hg Dec, MEDICATIONS Medication SIG (Take, Route, Frequency, Duration) Start Date En d Date Status Symbicort 160-4.5 MCG/ACT 2 puffs Inhalation Twice a day for 30 day s Active Ipratropium-Albuterol 0.5-2.5 (3) MG/3ML 3 ml as neede d Inhalation every 4 hours for SOB May, Active Blood Glucose Test - as directed In Vitro bid for 30 days Active BusPIRone HCl 30 MG 1 tablet orally 3 times daily Active PrednisoLONE 15 MG/5ML 15 ml Orally as directed tapeing dose Apr Not-Taking Probiotic - 1 capsule Orally before bedtime Active Zofran 4 MG 1 tablet Orally every 6 hours as needed for 10 days Apr, Active Polyethylene Glycol - as directed dissolve 17 gram s of powder in luquid and drink once daily for constipation May, Active Tramadol HCl 50 MG 1 tablet as needed Orally Once a day for 5 da ys Aug, Active Ketorolac Tromethamine 10 MG 1 tablet with food or mil k as needed Orally every 6 hrs for 5 day(s) Not-Taking Diflucan 150 MG 1 tablet Orally Once for 1 days May, Not-Taking Lisinopril 10 MG 1 tablet Orally Once a day for 90 Active Lancets - as directed BID Dx: E11.9 for 30 days Dec, Active Basaglar KwikPen 100 UNIT/ML 80 units subcutaneously twice daily for 30 days Active Venlafaxine HCl ER 150 MG Take 1 capsule every morning for 90 Active Protonix 40 MG 1 tablet Orally twice a day for 28 Active Prazosin HCl 1 MG 3 capsule Orally before bedtime for 30 days 2018 Active Gabapentin 600 MG 1 tablet Orally tid for 90 Active Eliquis 5 MG 1 tab Orally once daily Acti ve Lancets - as directed bid for 30 days Active Triamcinolone Acetonide 0.1 % 1 application to affecte d area Externally Twice a day to right elbow for 7 days Mar, Active Humulin R 100 UNIT/ML per sliding scale Injection QID before meals and before bedtime PRN; MDD: 100 units May, Active Iron 325 (65 Fe) MG 1 tablet Orally Once a day for 28 Active Sumatriptan Succinate 50 MG 1 tablet as needed Orally Twice a day for migraine Active Doxycycline Monohydrate 100 MG 1 capsule Orally bid for 7 days 2019 Not-Taking Hydrocodone-Acetaminophen 5-325 MG 1 tablet as needed Orally every 6 hrs for 28 days Dec, Active Ventolin HFA 108 (90 Base) MCG/ACT 2 puffs as needed I nhalation every 4 hrs for 30 days Active Trulicity 0.75 MG/0.5ML as directed Subcutaneous weekly for 28 Active Cholecalciferol 1000 UNIT 1 capsule Orally Once a day for 30 days Active Glucometer as directed Daily Dx: E11.9 for 999 days Dec, Active Levothyroxine Sodium 25 MCG 1 tablet in the morning on an empty stomach Orally Once a day for 28 Active AmLODIPine Besylate 10 MG 1 tablet Orally Once a day for 30 day(s) Active Artificial Tear 1 gtt Ophthalmic twice daily as needed for dry eyes Active Singulair 10 MG 1 tablet Orally Once a day for 90 Active Cetirizine HCl 10 MG 1 tablet Orally Once a day for 30 Active Docusate Sodium 100 MG 1 capsule as needed Orally Once a day for 30 Active Pen [place] as directed bid for 30 days Active Topiramate 50 MG 1 tablet Orally Twice a day for 90 Active Tizanidine HCl 4 MG 1 tablet as needed Orally Three times a day for 28 Active PROCEDURES No Information RESULTS No Results REASON FOR VISIT [facility] hosp f/u MEDICAL (GENERAL) HISTORY Type Description Date Medical [...] 05/01/2018 Hospitalization History Asthma 09/25/18 Hospitalization History [facility] asthma 05/19/2019- 0 Hospitalization History [facility] pancreatitis 12/04/19- 0 Goals Section No Information Health Concerns No Information MEDICAL EQUIPMENT No Information MENTAL STATUS No Information FUNCTIONAL STATUS No Information ASSESSMENTS Encounter Date Diagnosis Notes Dec, Right upper quadrant abdominal pain (ICD -10 - R10.11) Dec, Acute biliary pancreatitis, unspecified complication status (ICD-10 - K85.10) Dec, Elevated liver enzymes (ICD-10 - R74.8) PLAN OF TREATMENT Medication Medication Name Sig Start Date Stop Date Iron 325 (65 Fe) MG 1 tablet Orally Once a day for 28 Tizanidine HCl 4 MG 1 tablet as needed Orally Three times a day for 28 Hydrocodone-Acetaminophen 5-325 MG 1 tablet as needed Orally every 6 hrs for 28 days Dec, Levothyroxine Sodium 25 MCG 1 tablet in the morning on an empty stomach Orally Once a day for 28 Lancets - as directed BID Dx: E11.9 for 30 days Dec, Protonix 40 MG 1 tablet Orally twice a day for 28 Blood Glucose Test - as directed In Vitro bid for 30 days Glucometer as directed Daily Dx: E11.9 for 999 days Dec, Treatment Notes Assessment Notes Clinical Notes Right upper quadrant abdominal pain Revi ewed patient's hospital records. Has right upper quadrant pain and elevated liver enzymes. Likely will need liver Biopsy. Has follow up scheduled with GI in a couple weeks. Patient has been using hydrocodone for severe pain, continue for now. Has had elevated liver enzymes for some time now, may be etiology of pain. Discussed if pain severe, unable to eat/ drink to call office/ go to ER. Patient understod. Elevated liver enzymes Has had elevated enzymes for months. Increased during recent hospital visit. Per hospital record etiology unknown. Has follow up with GI in a few weeks. Acute biliary pancreatitis, unspecified complication status Patient had stent placed during hospital stay. Has follow up with GI. Next Appt Details 1 mth Reason:liver, abd pain Provider Name:Oswaldo Anderson, 2020-01-17 10:00:00 AM, [address] [place], [address], Follow Up:1 mthliver, abd pain Insurance Providers Payer Name Payer Address Payer Phone Insured Name Patient Relati onship to Insured Coverage Start Date Coverage End Date [facility] CORPORATE CLAIMS DEPT [address] [facility] [phone] PATY CRYSTAL
--- OUTSIDE RECORDS SUMMARY | 2020-03-31 13:28 | CCD ---
Author Author [facility] Organization 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 Active 3 2827061 Problem Migraine without status migr ainosus, not intractable, unspecified migraine type G43.909 Active 16000614 Problem Tension headache G44.209 Active 394097791 Problem 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 317138665 Problem Nightmares REM-sleep type F51.5 Active 617429 009 Problem Severe persistent asthma, unspecified whether complicated J45.50 Active 024073286 Problem PTSD (post-traumatic stress disorder) F43.10 Ac tive 92810146 Problem Bilateral low back pain with right-sided sciatica, unspecified chronicity M54.41 Active 354536830 Problem Insomnia, unspecified type G47.00 Active 93335 2000 Problem WANDY (obstructive sleep apnea) G47.33 Active 78 949380 Problem Arm paresthesia, left R20.2 Active 47176699 Problem Sinusitis, unspecified chronicity, unspecified location J32.9 Active 98286127 Problem Hyperlipidemia, unspecified hyperlipidemia type E7 8.5 Active 92136736 Problem Port-a-cath in place Z95.828 Active 138437659 Problem Psoriasis L40.9 Active 3657198 Problem Leukocytosis, unspecified type D72.829 Active 1 97972563 Problem Pulmonary embolism, unspecif ied chronicity, unspecified pulmonary embolism type, unspecified whether acute cor pulmonale present I 26.99 Active 32982600 Problem Pain in thoracic spine M54.6 Active 656381703 468068 Problem Other iron deficiency anemia D50.8 Active 875 47869 Problem Type 2 diabetes mellitus without complications E11 .9 Active 66256630 Problem Exacerbation of asthma, unsp ecified asthma severity, unspecified whether persistent J45.901 Active 135601859 Problem Hypothyroidism, unspecified type E03.9 Active 25244506 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 Active 409113211 Problem Other chronic pain G89.29 Active 48443672 Problem Anxiety disorder, unspecified type F41.9 Activ e 546217590 Problem Post-traumatic stress disorder, unspecified F43.10 Active 16736104 Problem Major depressive disorder, recurrent, mild F33.0 Active 885300658 ALLERGIES Allergen (clinical drug ingredient) Drug/Non Drug Allergy do cumented on EMR Reaction Allergy Type Onset Date Status PredniSONE Hives Drug Allergy Active metformin Metformin HCl(ND Code:[address]-78) kidneys Drug Vijay rgy Active meclizine Meclizine HCl(ND Code:[address]-65) Anaphylaxis Drug All ergy Active ENCOUNTERS from 1972 to 2020-01-11 Encounter Location Date Provider Diagnosis [facility] [address] [place] [address] Dec, Oswaldo Anderson Type 2 diabetes mellitus without complic ations E11.9 IMMUNIZATIONS Vaccine Route Administration Date Status Influenza (18 yrs & older) Flublok IM Intramuscular Dec 22, 2017 Administered Toradol 30mg/1mL (Ketorolac) IM Intramuscular Feb 16, 2018 Ad ministered Toradol 60mg/2mL (Ketorolac) IM Intramuscular July 14, 2017 Ad ministered Depo-Medrol 80mg (Methylprednisolone Acetate) IM Intramuscular A ug 2018 Administered Depo-Medrol 80mg (Methylprednisolone Acetate) IM Intramuscular [facility] 2017 Administered Depo-Medrol 40mg (Methylpredisolone Acetate) IM Intramuscular [facility] 2017 Administered Pneumococcal Adult 0.5mL (Pneumovax 23) [...] Education: High School Audit Question Answer Notes Interpretation: Alcohol Education Total Score: 0 Language: Question Answer Notes Languages spoken: Tajik Mu-Ism: Question Answer Notes Mu-Ism No congregational beliefs that would impact health care. Sexual Hx: Question Answer Notes Had sex in the last 12 months (vaginal, oral, or anal)? No Have you ever had an STD? No Drug and Alcohol Question Answer Notes Interpretation: No problems reported Total Score: 0 Alcohol Screening: Question Answer Notes Did you [...] Once a day for 30 Active Pen [place] as directed bid for 30 days Active Topiramate 50 MG 1 tablet Orally Twice a day for 90 Active Tizanidine HCl 4 MG 1 tablet as needed Orally Three times a day for 28 Active PROCEDURES No Information RESULTS No Results REASON FOR VISIT new [facility] MEDICAL (GENERAL) HISTORY Type Description Date Medical [...] 05/01/2018 Hospitalization History Asthma 09/25/18 Hospitalization History [facility] asthma 05/19/2019- 0 Hospitalization [facility] pancreatitis 12/04/19- 0 Goals Section No Information Health Concerns No Information MEDICAL EQUIPMENT No Information MENTAL STATUS No Information FUNCTIONAL STATUS No Information ASSESSMENTS Encounter Date Diagnosis Notes Dec, Type 2 diabetes mellitus without complic ations (ICD-10 - E11.9) PLAN OF TREATMENT Medication Medication Name Sig [...] Daily Dx: E11.9 for 999 days Dec, Next Appt Details Provider Name:Oswaldo Anderson, 2020-01-17 10:00:00 AM, [address], [place], [address], Insurance Providers Payer Name Payer Address Payer Phone Insured Name Patient Relati onship to Insured Coverage Start Date Coverage End Date [facility] CORPORATE CLAIMS DEPT [address] [facility] [phone] PATY CRYSTAL self
--- OUTSIDE RECORDS SUMMARY | 2020-03-31 13:28 | CCD ---
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 Active 3 1261785 Problem Migraine without status migr ainosus, not intractable, unspecified migraine type G43.909 Active 85916068 Problem Tension headache G44.209 Active 177177650 Problem 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 090017227 Problem Nightmares REM-sleep type F51.5 Active 702719 009 Problem Severe persistent asthma, unspecified whether complicated J45.50 Active 498680809 Problem PTSD (post-traumatic stress disorder) F43.10 Ac tive 38091917 Problem Bilateral low back pain with right-sided sciatica, unspecified chronicity M54.41 Active 277119226 Problem Insomnia, unspecified type G47.00 Active 17324 2000 Problem WANDY (obstructive sleep apnea) G47.33 Active 78 601704 Problem Arm paresthesia, left R20.2 Active 69026102 Problem Sinusitis, unspecified chronicity, unspecified location J32.9 Active 72028743 Problem Hyperlipidemia, unspecified hyperlipidemia type E7 8.5 Active 57523806 Problem Port-a-cath in place Z95.828 Active 764727337 Problem Psoriasis L40.9 Active 2969991 Problem Leukocytosis, unspecified type D72.829 Active 1 95940312 Problem Pulmonary embolism, unspecif ied chronicity, unspecified pulmonary embolism type, unspecified whether acute cor pulmonale present I 26.99 Active 64593004 Problem Pain in thoracic spine M54.6 Active 751171055 797271 Problem Other iron deficiency anemia D50.8 Active 875 32821 Problem Type 2 diabetes mellitus without complications E11 .9 Active 32368348 Problem Exacerbation of asthma, unsp ecified asthma severity, unspecified whether persistent J45.901 Active 934617230 Problem Hypothyroidism, unspecified type E03.9 Active 87325402 Problem 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 Active 551337997 Problem Other chronic pain G89.29 Active 10190986 Problem Anxiety disorder, unspecified type F41.9 Activ e 127434096 Problem Post-traumatic stress disorder, unspecified F43.10 Active 72393870 Problem Major depressive disorder, recurrent, mild F33.0 Active 987330477 ALLERGIES Allergen (clinical drug ingredient) Drug/Non Drug Allergy do cumented on EMR Reaction Allergy Type Onset Date Status PredniSONE Hives Drug Allergy Active metformin Metformin HCl(ND Code:[address]-65) kidneys Drug Vijay rgy Active meclizine Meclizine HCl(ND Code:[address]-04) Anaphylaxis Drug All ergy Active ENCOUNTERS from 1972 to 2020-02-03 Encounter Location Date Provider Diagnosis [address] [address] Jan, Oswaldo Anderson IMMUNIZATIONS Vaccine Route Administration [...] Administered Depo-Medrol 40mg (Methylpredisolone Acetate) IM Intramuscular [facility] 2017 Administered Pneumococcal Adult 0.5mL (Pneumovax [...] Education Language: Question Answer Notes Languages spoken: Slovak Jain: Question Answer Notes Jain No buddhist beliefs that would impact health care. Sexual [...] Dx: E11.9 for 30 days Dec, Active Lisinopril 10 MG 1 tablet Orally Once a day for 90 Active Symbicort 160-4.5 MCG/ACT 2 puffs Inhalation Twice a day for 30 days Active Polyethylene Glycol - as directed dissolve 17 gram s of powder in luquid and drink once daily for constipation May, Active Tramadol HCl 50 MG 1 tablet as needed Orally Once a day for 5 da ys Aug, Active Doxycycline Monohydrate 100 MG 1 capsule Orally bid for 7 days Apr, Not-Taking Glucometer as directed Daily Dx: E11.9 for 999 days Dec Active Topiramate 50 MG 1 tablet Orally Twice a day for 90 Active Zofran 4 MG 1 tablet Orally every 6 hours as needed for 10 days Apr, Active Eliquis 5 MG 1 tab Orally once daily Active Prazosin HCl 1 MG 3 capsule Orally before bedtime for 30 days Apr, Active Blood Glucose Test - as directed In Vitro bid for 30 days Active Lancets - as directed bid for 30 days Active Cholecalciferol 1000 UNIT 1 capsule Orally Once a day for 30 days Active Probiotic - 1 capsule Orally before bedtime Active Basaglar KwikPen 100 UNIT/ML 80 units subcutaneously twice daily for 30 days Active BusPIRone HCl 30 MG 1 tablet orally three times daily for 90 days Active Trulicity 0.75 MG/0.5ML as directed Subcutaneous weekly for 28 Active Gabapentin 600 MG 1 tablet Orally tid for 90 Active Triamcinolone Acetonide 0.1 % 1 application [...] hrs for 28 days Dec, Active Pen [place] as directed bid for 30 days Active Cetirizine HCl 10 MG 1 tablet Orally Once a day for 30 Active Tizanidine HCl 4 MG 1 tablet as needed Orally Three times a day for 2 8 Active PROCEDURES No Information RESULTS No Results REASON FOR VISIT Topiramate,Lisinopril MEDICAL (GENERAL) HISTORY Type Description Date Medical [...] 05/01/2018 Hospitalization History Asthma 09/25/18 Hospitalization History [facility] asthma 05/19/2019- 0 Hospitalization History [facility] pancreatitis 12/04/19- 0 Goals Section No [...] tablet Orally Once a day for 90 Topiramate 50 MG 1 tablet Orally Twice a day for 90 Lisinopril 10 MG 1 tablet Orally Once a day for 90 BusPIRone HCl 30 MG 1 tablet orally three times daily for 90 day s Insurance Providers Payer Name Payer Address Payer Phone Insured Name Patient Relati onship to Insured Coverage Start Date Coverage End Date [facility] CORPORATE CLAIMS [address]PT [address] [facility] [phone] PATY CRYSTAL self
--- OUTSIDE RECORDS SUMMARY | 2020-03-31 13:28 | CCD ---
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 Active 3 2549799 Problem Migraine without status migr ainosus, not intractable, unspecified migraine type G43.909 Active 49487656 Problem Tension headache G44.209 Active 106350296 Problem 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 136620961 Problem Nightmares REM-sleep type F51.5 Active 258642 009 Problem Severe persistent asthma, unspecified whether complicated J45.50 Active 932946441 Problem PTSD (post-traumatic stress disorder) F43.10 Ac tive 22144320 Problem Bilateral low back pain with right-sided sciatica, unspecified chronicity M54.41 Active 461113652 Problem Insomnia, unspecified type G47.00 Active 21915 2000 Problem WANDY (obstructive sleep apnea) G47.33 Active 78 712424 Problem Arm paresthesia, left R20.2 Active 81824559 Problem Sinusitis, unspecified chronicity, unspecified location J32.9 Active 46855814 Problem Hyperlipidemia, unspecified hyperlipidemia type E7 8.5 Active 10811248 Problem Port-a-cath in place Z95.828 Active 158544809 Problem Psoriasis L40.9 Active 1615479 Problem Leukocytosis, unspecified type D72.829 Active 1 70579207 Problem Pulmonary embolism, unspecif ied chronicity, unspecified pulmonary embolism type, unspecified whether acute cor pulmonale present I 26.99 Active 80764847 Problem Pain in thoracic spine M54.6 Active 235766696 393499 Problem Other iron deficiency anemia D50.8 Active 875 54541 Problem Type 2 diabetes mellitus without complications E11 .9 Active 15733499 Problem Exacerbation of asthma, unsp ecified asthma severity, unspecified whether persistent J45.901 Active 730994349 Problem Hypothyroidism, unspecified type E03.9 Active 23125165 Problem heel seat flap stapler current use of insulin Z79.4 Active 248961886 Problem Other chronic pain G89.29 Active 08971769 Problem Anxiety disorder, unspecified type F41.9 Activ e 189726698 Problem Post-traumatic stress disorder, unspecified F43.10 Active 75919225 Problem Major depressive disorder, recurrent, mild F33.0 Active 937453251 ALLERGIES Allergen (clinical drug ingredient) Drug/Non Drug Allergy do cumented on EMR Reaction Allergy Type Onset Date Status PredniSONE Hives Drug Allergy Active metformin Metformin HCl(ND Code:[address]-33) kidneys Drug Vijay rgy Active meclizine Meclizine HCl(ND Code:[address]-80) Anaphylaxis Drug All ergy Active ENCOUNTERS from 1972 to 2020-02-03 Encounter Location Date Provider Diagnosis [facility] [address] [place] [address] Jan, Oswaldo Anderson IMMUNIZATIONS Vaccine Route Administration [...] Depo-Medrol 40mg (Methylpredisolone Acetate) IM Intramuscular [facility] 2017 Administered Pneumococcal Adult 0.5mL (Pneumovax [...] Education Language: Question Answer Notes Languages spoken: Thai Zoroastrianism: Question Answer Notes Zoroastrianism No catholic beliefs that would impact health care. Sexual [...] hrs for 28 days Dec, Active Pen Girard as directed bid for 30 days Active Cetirizine HCl 10 MG 1 tablet Orally Once a day for 30 Active Tizanidine HCl 4 MG 1 tablet as needed Orally Three times a day for 2 8 Active PROCEDURES No Information RESULTS No Results REASON FOR VISIT Med Refill MEDICAL (GENERAL) HISTORY Type Description Date Medical [...] 05/01/2018 Hospitalization History Asthma 09/25/18 Hospitalization History [facility] asthma 05/19/2019- 0 Hospitalization History [facility] [...] Insured Coverage Start Date Coverage End Date [facility] [employer] DEPT [address] [facility] [phone] PATY CRYSTAL self
--- OUTSIDE RECORDS SUMMARY | 2020-03-31 13:29 | CCD ---
Author Author [facility] Organization [facility] Address Unknown Phone Unavailable Care Team Providers Care Winding Department Supervisor Name Role Phone PETROFF, JOSE PA Unavailable Unavailable PETROFF, JOSE PA Unavailable Unavailable PETROFF, JOSE PA Unavailable Unavailable PETROFF, JOSE PA Unavailable Unavailable PETROFF, JOSE PA Unavailable Unavailable PETROFF, JOSE PA Unavailable Unavailable PETROFF, JOSE PA Unavailable Unavailable PETROFF, JOSE PA Unavailable Unavailable Zohaib Amador MD Unavailable Unavailable Zohaib Amador MD Unavailable Unavailable Zohaib Amador MD Unavailable Unavailable Zohaib Amador MD Unavailable Unavailable Zohaib Amador MD Unavailable Unavailable Zohaib Amador MD Unavailable Unavailable Des Tapia MD Unavailable Unavailable Des Tapia MD Unavailable Unavailable Des Tapia MD Unavailable Unavailable Heitner, Des Milan MD Unavailable Unavailable Heitner, Des Milan MD Unavailable Unavailable Heitner, Des Milan MD Unavailable Unavailable Heitner, Des Milan MD Unavailable Unavailable Heitner, Des Milan MD Unavailable Unavailable Heitner, Des Milan MD Unavailable Unavailable Heitner, Des Milan MD Unavailable Unavailable Heitner, Des Milan MD Unavailable Unavailable Heitner, Des Milan MD Unavailable Unavailable Heitner, Des Milan MD Unavailable Unavailable Heitner, Des Milan MD Unavailable Unavailable Heitner, Des Milan MD Unavailable Unavailable Heitner, Des Milan MD Unavailable Unavailable Heitner, Des Milan MD Unavailable Unavailable Heitner, Des Milan MD Unavailable Unavailable Heitner, Des Milan MD Unavailable Unavailable Heitner, Des Milan MD Unavailable Unavailable Heitner, Des Milan MD Unavailable Unavailable Heitner, Des Milan MD Unavailable Unavailable Heitner, Des Milan MD Unavailable Unavailable Heitner, Des Milan MD Unavailable Unavailable Heitner, Des Milan MD Unavailable Unavailable Dille, E Lisa DDS Unavailable Unavailable Dille, E Lisa DDS Unavailable Unavailable Dille, E Lisa DDS Unavailable Unavailable Dille, Enoch Lisa DDS Unavailable Unavailable REINDL, DES CHENEY Unavailable Unavailable REINDL, DES CHENEY Unavailable Unavailable REINDL, DES CHENEY Unavailable Unavailable REINDL, DES CHENEY Unavailable Unavailable REINDL, DES CHENEY Unavailable Unavailable REINDL, DES CHENEY Unavailable Unavailable REINDL, DES CHENEY Unavailable Unavailable REINDL, DES CEHNEY Unavailable Unavailable REINDL, DES CHENEY Unavailable Unavailable REINDL, DES CHENEY Unavailable Unavailable REINDL, DES CHENEY Unavailable Unavailable REINDL, DES CHENEY Unavailable Unavailable REINDL, DES CHENEY Unavailable Unavailable REINDL, DES CHENEY Unavailable Unavailable REINDL, DES CHENEY Unavailable Unavailable REINDL, DES CHENEY Unavailable Unavailable REINDL, DES CHENEY Unavailable Unavailable REINDL, DES CHENEY Unavailable Unavailable REINDL, DES CHENEY Unavailable Unavailable REINDL, DES CHENEY Unavailable Unavailable REINDL, DES CHENEY Unavailable Unavailable REINDL, DES CHENEY Unavailable Unavailable REINDL, DES CHENEY Unavailable Unavailable REINDL, DES CHENEY Unavailable Unavailable REINDL, DES CHENEY Unavailable Unavailable REINDL, DES CHENEY Unavailable Unavailable REINDL, DES CHENEY Unavailable Unavailable REINDL, DES CHENEY Unavailable Unavailable REINDL, DES CHENEY Unavailable Unavailable REINDL, DES CHENEY Unavailable Unavailable REINDL, DES CHENEY Unavailable Unavailable REINDL, DES CHENEY Unavailable Unavailable REINDL, DES CHENEY Unavailable Unavailable REINDL, DES CHENEY Unavailable Unavailable REINDL, DES CHENEY Unavailable Unavailable REINDL, DES CHENEY Unavailable Unavailable REINDL, DES CHENEY Unavailable Unavailable REINDL, DES CHENEY Unavailable Unavailable REINDL, DES CHENEY Unavailable Unavailable REINDL, DES CHENEY Unavailable Unavailable REINDL, DES CHENEY Unavailable Unavailable REINDL, DES CHENEY Unavailable Unavailable [facility] Unavailable Unavailable Re-disclosure Warning The records that you are about to access may contain information from federally-assisted alcohol or drug abuse programs. If such information is present, then the following federally mandated warning applies: This information has been disclosed to you from records protected by federal confidentiality rules (42 CFR part 2). The federal rules prohibit you from making any further disclosure of this information unless further disclosure is expressly permitted by the written consent of the person to whom it pertains or as otherwise permitted by 42 CFR part 2. A general authorization for the release of medical or other information is NOT sufficient for this purpose. The Federal rules restrict any use of the information to criminally investigate or prosecute any alcohol or drug abuse patient.The records that you are about to access may contain highly sensitive health information, the redisclosure of which is protected by Article 27-F of the [facility] Public Health law. If you continue you may have access to information: Regarding HIV / AIDS; Provided by facilities licensed or operated by the [facility] Office of Mental Health; or Provided by the [facility] Office for People With Developmental Disabilities. If such information is present, then the following [facility] mandated warning applies: This information has been disclosed to you from confidential records which are protected by state law. State law prohibits you from making any further disclosure of this information without the specific written consent of the person to whom it pertains, or as otherwise permitted by law. Any unauthorized further disclosure in violation of state law may result in a fine or intermediate sentence or both. A general authorization for the release of medical or other information is NOT sufficient authorization for further disc losure. Allergies and Adverse Reactions Type Description Substance Reaction Status Data Source(s ) Drug allergy Meclizine HCl Meclizine Anaphylaxis Active eCW1 ([facility]) metformin Metformin HCl Metformin kidneys Active eCW1 ([facility]) PredniSONE PredniSONE PredniSONE Hives Active eCW1 ([facility]) PredniSONE PredniSONE PredniSONE Hives Active eCW1 ([facility]) PredniSONE PredniSONE PredniSONE Hives Active eCW1 ([facility]) PredniSONE PredniSONE PredniSONE Hives Active eCW1 ([facility]) PredniSONE PredniSONE PredniSONE Hives Active eCW1 ([facility]) PredniSONE PredniSONE Prednisone 10 MG Oral Tablet Hives Active eCW1 ([facility]) PredniSONE PredniSONE Prednisone 10 MG Oral Tablet Hives Active eCW1 ([facility]) PredniSONE PredniSONE PredniSONE Hives Active eCW1 ([facility]) PredniSONE PredniSONE PredniSONE Hives Active eCW1 ([facility]) Family History Family Member Name Family Member Gender Family Member Status Date o f Status Description Data Source(s) Unknown Unknown Problem MEDENT ([facility], ) Encounters Encounter Providers Location Date Indications Data Source(s ) Outpatient Attender: DES Matthew/José Antonio/Karl/Masha gilliam 03/29/2020 08:00:00 AM EST MEDENT ([facility] [place] [address] [facility] [place] [address] 02/04/2020 12:00:00 AM EST eCW1 ([facility]) Unknown [address] [facility] [place] [address] 02/04/2020 12:00:00 AM EST eCW1 ([facility]) Unknown [address] [facility] [place] [address] 02/03/2020 12:00:00 AM EST eCW1 ([facility]) Unknown [address] [facility] [place] [address] 02/03/2020 12:00:00 AM EST eCW1 ([facility]) Unknown [address] [facility] [place] [address] 01/10/2020 12:00:00 AM EDT eCW1 ([facility]) Unknown [address] [facility] [place] [address] 12/29/2019 12:00:00 AM EDT eCW1 ([facility]) Outpatient [address] [facility] [place] [address] 12/16/2019 12:00:00 AM EDT [facility] Outpatient Attender: Lisa HARO 08/30/2019 12:55:01 P M EDT [facility] Outpatient Referrer: Bjorn Tapia MD 08/17/2019 05:50:00 AM EDT [facility] [address] [place] [address] 08/11/2019 12:00:00 AM EDT eCW1 ([facility]) Outpatient Referrer: Bjorn Tapia MD 08/05/2019 06:01:00 AM EDT [facility] [address] [place] [address] 08/05/2019 12:00:00 AM EDT eCW1 [facility]) Outpatient Attender: Lisa HARO 08/03/2019 11:33:01 A M EDT [facility] [address] [place] [address] 08/02/2019 12:00:00 AM EDT eCW1 ([facility]) [facility] [address] [place] [address] 07/25/2019 12:00:00 AM EDT eCW1 ([facility] [place]) ([facility]) [facility] Scheduled Visit [address] [place] [address] 07/22/2019 12:00:00 AM EDT eCW1 ([facility]) Outpatient Referrer: Bjorn Tapia MD 07/20/2019 05:35:00 AM EDT [facility] [address] [place] [address] 07/08/2019 12:00:00 AM EDT eCW1 ([facility]) [facility] [address] [facility] [address] 06/30/2019 12:00:00 AM EDT eCW1 ([facility]) [facility] [address] [place] [address] 06/25/2019 12:00:00 AM EDT eCW1 ([facility]) [facility] [address] [place] [phone] 06/21/2019 12:00:00 AM EDT eCW1 ([facility]) Outpatient Attender: Zohaib Gagnon DAdmitter: Zohaib Amador MDReferrer: Zohaib Amador MD 06/10/2019 12:00:00 AM EDT Other fatigue [facility] Other fatigue [facility] [address] [place] [phone] 06/09/2019 12:00:00 AM EDT eCW1 ([facility] [place]) Outpatient Attender: Lisa QUINONESND 06/07/2019 09:16:00 A M EDT [facility] [address] [place] [phone] 05/28/2019 12:00:00 AM EDT eCW1 ([facility]) [address] [address] 05/25/2019 12:00:00 AM EDT eCW1 ([facility] [place]) Outpatient Referrer: Bjorn Tapia MD 05/24/2019 12:29:00 PM EDT [facility] [address] [place] [phone] 05/24/2019 12:00:00 AM EDT eCW1 ([facility]) Outpatient Referrer: Bjorn Tapia MD 05/20/2019 03:10:00 PM EST [facility] [address] [facility] [place] [address] 05/19/2019 12:00:00 AM EST eCW1 ([facility]) [facility] [address] [facility] [address] 05/19/2019 12:00:00 AM EST eCW1 ([facility]) [facility] [address] [facility] [place] [address] 05/12/2019 12:00:00 AM EST eCW1 ([facility]) [facility] [address] [place] [address] 05/07/2019 12:00:00 AM EST eCW1 ([facility]) [facility] [address] [facility] [place] [address] 05/05/2019 12:00:00 AM EST eCW1 ([facility]) [facility] [address] [place] [address], [place] [address] 04/29/2019 12:00:00 AM EST eCW1 ([facility]) [facility] [address] [facility] [place] [address] 04/21/2019 12:00:00 AM EST eCW1 ([facility]) [facility] [address] [place] [address], [place] [address] 04/21/2019 12:00:00 AM EST eCW1 ([facility]) [facility] [address] [facility] [place] [address] 04/14/2019 12:00:00 AM EST eCW1 ([facility]) Outpatient Attender: Lisa BOWMAN 04/07/2019 02:57:00 P M [facility] Outpatient Attender: Lisa BOWMAN 04/07/2019 01:01:00 P M [facility] [address] [facility] [place] [address] 04/06/2019 12:00:00 AM EST eCW1 ([facility]) Outpatient Attender: Lisa BOWMAN 04/01/2019 12:37:01 P M [facility] Outpatient Attender: Lisa BOWMAN 04/01/2019 11:51:00 A M [facility] Outpatient Attender: [facility] 04/01/2019 11:49:00 AM [facility] Outpatient Attender: [facility] 04/01/2019 11:48:00 AM [facility] Outpatient Attender: [facility] 04/01/2019 11:44:59 AM [facility] Outpatient Attender: [facility] 04/01/2019 10:41:00 AM [facility] Outpatient Attender: [facility] 04/01/2019 10:39:02 AM [facility] Outpatient Attender: [facility] 04/01/2019 10:38:00 AM [facility] [address] [facility] [place] [address] 03/29/2019 12:00:00 AM EST eCW1 ([facility]) Outpatient Attender: [facility] 03/04/2019 09:01:08 PM [facility] Outpatient Referrer: Bjorn Tapia MD 02/17/2019 09:30:00 PM EST [facility] [address] [facility] [place] [address] 02/17/2019 12:00:00 AM EST eCW1 ([facility]) [facility] [place] [address] [facility] [place] [address] 02/16/2019 12:00:00 AM EST eCW1 ([facility]) [facility] [address] [place] [address] 02/04/2019 12:00:00 AM EST eCW1 ([facility]) Emergency Attender: JOSE HOANG 2018 04:26:00 PM EDT - 01/09/2019 04:48:00 PM T [facility] Patient discharged. Medications Medication Brand Name Start Date Product Form Dose Route Admi nistrative Instructions Pharmacy Instructions Status Indications Reaction Description Data Source(s) Ursodiol 500 MG Oral Tablet Ursodiol 03/29/2020 12:00:00 AM EST ORAL active MEDENT ([facility]) Lancets - Lancets - 01/10/2020 12:00:00 AM EDT [place] Lancets - eCW1 ([facility]) Lancets - Lancets - 01/10/2020 12:00:00 AM EDT [place] Lancets - eCW1 ([facility]) Lancets - Lancets - 01/10/2020 12:00:00 AM EDT [place] Lancets - eCW1 ([facility]) Glucometer UNK 01/10/2020 12:00:00 AM EDT active Glucometer eCW1 ([facility]) Lancets - Lancets - 01/10/2020 12:00:00 AM EDT [place] Lancets - eCW1 ([facility]) Lancets - Lancets - 01/10/2020 12:00:00 AM EDT [place] Lancets - eCW1 ([facility]) Glucometer UNK 01/10/2020 12:00:00 AM EDT active Glucometer eCW1 ([facility]) Glucometer UNK 01/10/2020 12:00:00 AM EDT active Glucometer eCW1 ([facility]) Glucometer UNK 01/10/2020 12:00:00 AM EDT active Glucometer eCW1 ([facility]) Glucometer UNK 01/10/2020 12:00:00 AM EDT active Glucometer eCW1 ([facility]) Glucometer UNK 01/10/2020 12:00:00 AM EDT active Glucometer eCW1 ([facility]) Lancets - Lancets - 01/10/2020 12:00:00 AM EDT [place] Lancets - eCW1 ([facility]) Acetaminophen 325 MG / Hydrocodone Yoli trate 5 MG Oral Tablet Hydrocodone- Acetaminophen 5-325 MG Hydrocodone-Acetaminophen 5-325 MG 12/29/2019 12:00:00 AM EDT 1.0 {tablet_as_needed} active Hydrocodone-Acetaminophen 5-325 MG eCW1 ([facility]) Acetaminophen 325 MG / Hydrocodone Yoli trate 5 MG Oral Tablet Hydrocodone- Acetaminophen 5-325 MG Hydrocodone-Acetaminophen 5-325 MG 12/29/2019 12:00:00 AM EDT 1.0 {tablet_as_needed} active Hydrocodone-Acetaminophen 5-325 MG eCW1 ([facility]) Acetaminophen 325 MG / Hydrocodone Yoli trate 5 MG Oral Tablet Hydrocodone- Acetaminophen 5-325 MG Hydrocodone-Acetaminophen 5-325 MG 12/29/2019 12:00:00 AM EDT 1.0 {tablet_as_needed} active Hydrocodone-Acetaminophen 5-325 MG eCW1 ([facility]) Acetaminophen 325 MG / Hydrocodone Yoli trate 5 MG Oral Tablet Hydrocodone- Acetaminophen 5-325 MG Hydrocodone-Acetaminophen 5-325 MG 12/29/2019 12:00:00 AM EDT 1.0 {tablet_as_needed} active Hydrocodone-Acetaminophen 5-325 MG eCW1 ([facility]) Acetaminophen 325 MG / Hydrocodone Yoli trate 5 MG Oral Tablet Hydrocodone- Acetaminophen 5-325 MG Hydrocodone-Acetaminophen 5-325 MG 12/29/2019 12:00:00 AM EDT 1.0 {tablet_as_needed} active Hydrocodone-Acetaminophen 5-325 MG eCW1 ([facility]) Acetaminophen 325 MG / Hydrocodone Yoli trate 5 MG Oral Tablet Hydrocodone- Acetaminophen 5-325 MG Hydrocodone-Acetaminophen 5-325 MG 12/29/2019 12:00:00 AM EDT 1.0 {tablet_as_needed} active Hydrocodone-Acetaminophen 5-325 MG eCW1 ([facility]) Acetaminophen 325 MG / Hydrocodone Yoli trate 5 MG Oral Tablet Hydrocodone- Acetaminophen 5-325 MG Hydrocodone-Acetaminophen 5-325 MG 12/29/2019 12:00:00 AM EDT 1.0 {tablet_as_needed} active Hydrocodone-Acetaminophen 5-325 MG eCW1 ([facility]) tramadol hydrochloride 50 MG Oral Tablet Tramadol HCL 09/16/2019 12:00:00 AM EDT active MEDENT ([facility] ) tramadol hydrochloride 50 MG Oral Tablet Tramadol HCl 50 MG Tramadol HCl 50 MG 09/14/2019 12:00:00 AM EDT 1.0 {tablet_as_needed} active Tramadol HCl 50 MG eCW1 ([facility]) tramadol hydrochloride 50 MG Oral Tablet Tramadol HCl 50 MG Tramadol HCl 50 MG 09/14/2019 12:00:00 AM EDT 1.0 {tablet_as_needed} active Tramadol HCl 50 MG eCW1 ([facility]) tramadol hydrochloride 50 MG Oral Tablet Tramadol HCl 50 MG Tramadol HCl 50 MG 09/14/2019 12:00:00 AM EDT 1.0 {tablet_as_needed} active Tramadol HCl 50 MG eCW1 ([facility]) tramadol hydrochloride 50 MG Oral Tablet Tramadol HCl 50 MG Tramadol HCl 50 MG 09/14/2019 12:00:00 AM EDT 1.0 {tablet_as_needed} active Tramadol HCl 50 MG eCW1 ([facility]) tramadol hydrochloride 50 MG Oral Tablet Tramadol HCl 50 MG Tramadol HCl 50 MG 09/14/2019 12:00:00 AM EDT 1.0 {tablet_as_needed} active Tramadol HCl 50 MG eCW1 ([facility]) tramadol hydrochloride 50 MG Oral Tablet Tramadol HCl 50 MG Tramadol HCl 50 MG 09/14/2019 12:00:00 AM EDT 1.0 {tablet_as_needed} active Tramadol HCl 50 MG eCW1 ([facility]) tramadol hydrochloride 50 MG Oral Tablet Tramadol HCl 50 MG Tramadol HCl 50 MG 09/14/2019 12:00:00 AM EDT 1.0 {tablet_as_needed} active Tramadol HCl 50 MG eCW1 ([facility]) Fluconazole 150 MG Oral Tablet [Diflucan] Diflucan 150 MG Di flucan 150 MG 06/09/2019 12:00:00 AM EDT 1.0 {tablet} suspended Diflucan 150 MG eCW1 ([facility]) Fluconazole 150 MG Oral Tablet [Diflucan] Diflucan 150 MG Di flucan 150 MG 06/09/2019 12:00:00 AM EDT 1.0 {tablet} suspended Diflucan 150 MG eCW1 ([facility]) Fluconazole 150 MG Oral Tablet [Diflucan] Diflucan 150 MG Di flucan 150 MG 06/09/2019 12:00:00 AM EDT suspended 1 tablet eCW1 ([facility]) Fluconazole 150 MG Oral Tablet [Diflucan] Diflucan 150 MG Di flucan 150 MG 06/09/2019 12:00:00 AM EDT 1.0 {tablet} suspended Diflucan 150 MG eCW1 ([facility]) Fluconazole 150 MG Oral Tablet [Diflucan] Diflucan 150 MG Di flucan 150 MG 06/09/2019 12:00:00 AM EDT 1.0 {tablet} suspended Diflucan 150 MG eCW1 ([facility]) Fluconazole 150 MG Oral Tablet [Diflucan] Diflucan 150 MG Di flucan 150 MG 06/09/2019 12:00:00 AM EDT 1.0 {tablet} suspended Diflucan 150 MG eCW1 ([facility]) Fluconazole 150 MG Oral Tablet [Diflucan] Diflucan 150 MG Di flucan 150 MG 06/09/2019 12:00:00 AM EDT 1.0 {tablet} suspended Diflucan 150 MG eCW1 ([facility]) Fluconazole 150 MG Oral Tablet [Diflucan] Diflucan 150 MG Di flucan 150 MG 06/09/2019 12:00:00 AM EDT active 1 tablet eCW1 ([facility]) Fluconazole 150 MG Oral Tablet [Diflucan] Diflucan 150 MG Di flucan 150 MG 06/09/2019 12:00:00 AM EDT 1.0 {tablet} suspended Diflucan 150 MG eCW1 ([facility]) Fluconazole 150 MG Oral Tablet [Diflucan] Diflucan 150 MG Di flucan 150 MG 06/09/2019 12:00:00 AM EDT 1.0 {tablet} suspended Diflucan 150 MG eCW1 ([facility]) Polyethylene Glycol - Polyethylene Glycol - 05/21/2019 12:00:00 AM EST active Polyethylene Glycol - eCW1 ( [facility]) Polyethylene Glycol - Polyethylene Glycol - 05/21/2019 12:00:00 AM EST active as directed eCW1 ([facility]) Albuterol 0.833 MG/ML / Ipratropium Brom clotilde 0.167 MG/ML Inhalant Solution Ipratropium-Albuterol 0.5-2.5 (3) MG/3ML Ipratropium-Albuterol 0.5-2.5 (3) MG/3ML 05/21/2019 12:00:00 AM EST active 3 ml as needed eCW1 ([facility]) Albuterol 0.833 MG/ML / Ipratropium Brom clotilde 0.167 MG/ML Inhalant Solution Ipratropium-Albuterol 0.5-2.5 (3) MG/3ML Ipratropium-Albuterol 0.5-2.5 (3) MG/3ML 05/21/2019 12:00:00 AM EST 3.0 {ml_as_needed} active Ipratropium-Albuterol 0.5-2.5 (3) MG/3ML eCW1 ([facility]) Polyethylene Glycol - Polyethylene Glycol - 05/21/2019 12:00:00 AM EST active Polyethylene Glycol - eCW1 ( [facility]) Albuterol 0.833 MG/ML / Ipratropium Brom clotilde 0.167 MG/ML Inhalant Solution Ipratropium-Albuterol 0.5-2.5 (3) MG/3ML Ipratropium-Albuterol 0.5-2.5 (3) MG/3ML 05/21/2019 12:00:00 AM EST 3.0 {ml_as_needed} active Ipratropium-Albuterol 0.5-2.5 (3) MG/3ML eCW1 ([facility]) Albuterol 0.833 MG/ML / Ipratropium Brom clotilde 0.167 MG/ML Inhalant Solution Ipratropium-Albuterol 0.5-2.5 (3) MG/3ML Ipratropium-Albuterol 0.5-2.5 (3) MG/3ML 05/21/2019 12:00:00 AM EST active 3 ml as needed eCW1 ([facility]) Polyethylene Glycol - Polyethylene Glycol - 05/21/2019 12:00:00 AM EST active Polyethylene Glycol - eCW1 ( [facility]) Albuterol 0.833 MG/ML / Ipratropium Brom clotilde 0.167 MG/ML Inhalant Solution Ipratropium-Albuterol 0.5-2.5 (3) MG/3ML Ipratropium-Albuterol 0.5-2.5 (3) MG/3ML 05/21/2019 12:00:00 AM EST 3.0 {ml_as_needed} active Ipratropium-Albuterol 0.5-2.5 (3) MG/3ML eCW1 ([facility]) Albuterol 0.833 MG/ML / Ipratropium Brom clotilde 0.167 MG/ML Inhalant Solution Ipratropium-Albuterol 0.5-2.5 (3) MG/3ML Ipratropium-Albuterol 0.5-2.5 (3) MG/3ML 05/21/2019 12:00:00 AM EST 3.0 {ml_as_needed} active Ipratropium-Albuterol 0.5-2.5 (3) MG/3ML eCW1 ([facility]) Polyethylene Glycol - Polyethylene Glycol - 05/21/2019 12:00:00 AM EST active as directed eCW1 ([facility]) Polyethylene Glycol - Polyethylene Glycol - 05/21/2019 12:00:00 AM EST active Polyethylene Glycol - eCW1 ( [facility]) Polyethylene Glycol - Polyethylene Glycol - 05/21/2019 12:00:00 AM EST active Polyethylene Glycol - eCW1 ( [facility]) Polyethylene Glycol - Polyethylene Glycol - 05/21/2019 12:00:00 AM EST active Polyethylene Glycol - eCW1 ( [facility]) Polyethylene Glycol - Polyethylene Glycol - 05/21/2019 12:00:00 AM EST active as directed eCW1 ([facility]) Albuterol 0.833 MG/ML / Ipratropium Brom clotilde 0.167 MG/ML Inhalant Solution Ipratropium-Albuterol 0.5-2.5 (3) MG/3ML Ipratropium-Albuterol 0.5-2.5 (3) MG/3ML 05/21/2019 12:00:00 AM EST 3.0 {ml_as_needed} active Ipratropium-Albuterol 0.5-2.5 (3) MG/3ML eCW1 ([facility]) Polyethylene Glycol - Polyethylene Glycol - 05/21/2019 12:00:00 AM EST active Polyethylene Glycol - eCW1 ( [facility]) Albuterol 0.833 MG/ML / Ipratropium Brom clotilde 0.167 MG/ML Inhalant Solution Ipratropium-Albuterol 0.5-2.5 (3) MG/3ML Ipratropium-Albuterol 0.5-2.5 (3) MG/3ML 05/21/2019 12:00:00 AM EST 3.0 {ml_as_needed} active Ipratropium-Albuterol 0.5-2.5 (3) MG/3ML eCW1 ([facility]) Polyethylene Glycol - Polyethylene Glycol - 05/21/2019 12:00:00 AM EST active Polyethylene Glycol - eCW1 ( [facility]) Albuterol 0.833 MG/ML / Ipratropium Brom clotilde 0.167 MG/ML Inhalant Solution Ipratropium-Albuterol 0.5-2.5 (3) MG/3ML Ipratropium-Albuterol 0.5-2.5 (3) MG/3ML 05/21/2019 12:00:00 AM EST 3.0 {ml_as_needed} active Ipratropium-Albuterol 0.5-2.5 (3) MG/3ML eCW1 ([facility]) Albuterol 0.833 MG/ML / Ipratropium Brom clotilde 0.167 MG/ML Inhalant Solution Ipratropium-Albuterol 0.5-2.5 (3) MG/3ML Ipratropium-Albuterol 0.5-2.5 (3) MG/3ML 05/21/2019 12:00:00 AM EST active 3 ml as needed eCW1 ([facility]) Albuterol 0.833 MG/ML / Ipratropium Brom clotilde 0.167 MG/ML Inhalant Solution Ipratropium-Albuterol 0.5-2.5 (3) MG/3ML Ipratropium-Albuterol 0.5-2.5 (3) MG/3ML 05/21/2019 12:00:00 AM EST 3.0 {ml_as_needed} active Ipratropium-Albuterol 0.5-2.5 (3) MG/3ML eCW1 ([facility]) Doxycycline Monohydrate 100 MG Oral Capsule Doxycycline [place] hydrate 100 MG 05/12/2019 12:00:00 AM EST suspended 1 capsule eCW1 ([facility]) Doxycycline Monohydrate 100 MG Oral Capsule Doxycycline [place] hydrate 100 MG 05/12/2019 12:00:00 AM EST 1.0 {capsule} suspend ed Doxycycline Monohydrate 100 MG eCW1 ([facility]) Doxycycline Monohydrate 100 MG Oral Capsule Doxycycline [place] hydrate 100 MG 05/12/2019 12:00:00 AM EST 1.0 {capsule} suspend ed Doxycycline Monohydrate 100 MG eCW1 ([facility]) Doxycycline Monohydrate 100 MG Oral Capsule Doxycycline [place] hydrate 100 MG 05/12/2019 12:00:00 AM EST active 1 capsule eCW1 ([facility]) Doxycycline Monohydrate 100 MG Oral Capsule Doxycycline [place] hydrate 100 MG 05/12/2019 12:00:00 AM EST 1.0 {capsule} suspend ed Doxycycline Monohydrate 100 MG eCW1 ([facility]) Doxycycline Monohydrate 100 MG Oral Capsule Doxycycline [place] hydrate 100 MG 05/12/2019 12:00:00 AM EST 1.0 {capsule} suspend ed Doxycycline Monohydrate 100 MG eCW1 ([facility]) Doxycycline Monohydrate 100 MG Oral Capsule Doxycycline [place] hydrate 100 MG 05/12/2019 12:00:00 AM EST 1.0 {capsule} suspend ed Doxycycline Monohydrate 100 MG eCW1 ([facility]) Doxycycline Monohydrate 100 MG Oral Capsule Doxycycline [place] hydrate 100 MG 05/12/2019 12:00:00 AM EST 1.0 {capsule} suspend ed Doxycycline Monohydrate 100 MG eCW1 ([facility]) Doxycycline Monohydrate 100 MG Oral Capsule Doxycycline [place] hydrate 100 MG 05/12/2019 12:00:00 AM EST active 1 capsule eCW1 ([facility]) Doxycycline Monohydrate 100 MG Oral Capsule Doxycycline [place] hydrate 100 MG 05/12/2019 12:00:00 AM EST active 1 capsule eCW1 ([facility]) Doxycycline Monohydrate 100 MG Oral Capsule Doxycycline [place] hydrate 100 MG 05/12/2019 12:00:00 AM EST 1.0 {capsule} suspend ed Doxycycline Monohydrate 100 MG eCW1 ([facility]) PrednisoLONE 15 MG/5ML PrednisoLONE 15 MG/5ML 05/12/2019 12:00:[address] active 15 ml eCW1 ([facility]) Doxycycline Monohydrate 100 MG Oral Capsule Doxycycline [place] hydrate 100 MG 05/12/2019 12:00:00 AM EST 1.0 {capsule} suspend ed Doxycycline Monohydrate 100 MG eCW1 ([facility]) Iron 325 (65 Fe) MG Iron 325 (65 Fe) MG 05/05/2019 12:00:00 AM EST active 1 tablet eCW1 ([facility]) Iron 325 (65 Fe) MG Iron 325 (65 Fe) MG 05/05/2019 12:00:00 AM EST active 1 tablet eCW1 ([facility]) Iron 325 (65 Fe) MG Iron 325 (65 Fe) MG 05/05/2019 12:00:00 AM EST active 1 tablet eCW1 ([facility]) Iron 325 (65 Fe) MG Iron 325 (65 Fe) MG 05/05/2019 12:00:00 AM EST active 1 tablet eCW1 ([facility]) Ondansetron 4 MG Oral Tablet [Zofran] Zofran 4 MG Zofran 4 M G 04/21/2019 12:00:00 AM EST 1.0 {tablet} active Zo rosy 4 MG eCW1 ([facility]) Ondansetron 4 MG Oral Tablet [Zofran] Zofran 4 MG Zofran 4 M G 04/21/2019 12:00:00 AM EST active 1 tablet eCW1 ([facility]) Ondansetron 4 MG Oral Tablet [Zofran] Zofran 4 MG Zofran 4 M G 04/21/2019 12:00:00 AM EST 1.0 {tablet} active Zo rosy 4 MG eCW1 ([facility]) Ondansetron 4 MG Oral Tablet [Zofran] Zofran 4 MG Zofran 4 M G 04/21/2019 12:00:00 AM EST 1.0 {tablet} active Zo rosy 4 MG eCW1 ([facility]) Ondansetron 4 MG Oral Tablet [Zofran] Zofran 4 MG Zofran 4 M G 04/21/2019 12:00:00 AM EST 1.0 {tablet} active Zo rosy 4 MG eCW1 ([facility]) Ondansetron 4 MG Oral Tablet [Zofran] Zofran 4 MG Zofran 4 M G 04/21/2019 12:00:00 AM EST 1.0 {tablet} active Zo rosy 4 MG eCW1 ([facility]) Ondansetron 4 MG Oral Tablet [Zofran] Zofran 4 MG Zofran 4 M G 04/21/2019 12:00:00 AM EST 1.0 {tablet} active Zo rosy 4 MG eCW1 ([facility]) Ondansetron 4 MG Oral Tablet [Zofran] Zofran 4 MG Zofran 4 M G 04/21/2019 12:00:00 AM EST active 1 tablet eCW1 ([facility]) Ondansetron 4 MG Oral Tablet [Zofran] Zofran 4 MG Zofran 4 M G 04/21/2019 12:00:00 AM EST active 1 tablet eCW1 ([facility]) Ondansetron 4 MG Oral Tablet [Zofran] Zofran 4 MG Zofran 4 M G 04/21/2019 12:00:00 AM EST 1.0 {tablet} active Zo rosy 4 MG eCW1 ([facility]) Ondansetron 4 MG Oral Tablet [Zofran] Zofran 4 MG Zofran 4 M G 04/21/2019 12:00:00 AM EST active 1 tablet eCW1 ([facility]) Ondansetron 4 MG Oral Tablet [Zofran] Zofran 4 MG Zofran 4 M G 04/21/2019 12:00:00 AM EST active 1 tablet eCW1 ([facility]) Ondansetron 4 MG Oral Tablet [Zofran] Zofran 4 MG Zofran 4 M G 04/21/2019 12:00:00 AM EST 1.0 {tablet} active Zo rosy 4 MG eCW1 ([facility]) Ondansetron 4 MG Oral Tablet [Zofran] Zofran 4 MG Zofran 4 M G 04/21/2019 12:00:00 AM EST active 1 tablet eCW1 ([facility]) Ondansetron 4 MG Oral Tablet [Zofran] Zofran 4 MG Zofran 4 M G 04/21/2019 12:00:00 AM EST active 1 tablet eCW1 ([facility]) prednisolone 3 MG/ML Oral Solution PrednisoLONE 15 MG/ 5ML PrednisoLONE 15 MG/5ML 04/19/2019 12:00:00 AM EST 15.0 {ml} suspende d PrednisoLONE 15 MG/5ML eCW1 ([facility]) PrednisoLONE 15 MG/5ML PrednisoLONE 15 MG/5ML 04/19/2019 12:00:[address] suspended 15 ml eCW1 ([facility]) prednisolone 3 MG/ML Oral Solution PrednisoLONE 15 MG/ 5ML PrednisoLONE 15 MG/5ML 04/19/2019 12:00:00 AM EST 15.0 {ml} suspende d PrednisoLONE 15 MG/5ML eCW1 ([facility]) PrednisoLONE 15 MG/5ML PrednisoLONE 15 MG/5ML 04/19/2019 12:00:[address] active 15 ml eCW1 ([facility]) PrednisoLONE 15 MG/5ML PrednisoLONE 15 MG/5ML 04/19/2019 12:00:[address] active 15 ml eCW1 ([facility]) prednisolone 3 MG/ML Oral Solution PrednisoLONE 15 MG/ 5ML PrednisoLONE 15 MG/5ML 04/19/2019 12:00:00 AM EST 15.0 {ml} suspende d PrednisoLONE 15 MG/5ML eCW1 ([facility]) prednisolone 3 MG/ML Oral Solution PrednisoLONE 15 MG/ 5ML PrednisoLONE 15 MG/5ML 04/19/2019 12:00:00 AM EST 15.0 {ml} suspende d PrednisoLONE 15 MG/5ML eCW1 ([facility]) PrednisoLONE 15 MG/5ML PrednisoLONE 15 MG/5ML 04/19/2019 12:00:00 A M EST 15.0 {ml} suspended PrednisoLONE 15 MG/5ML eCW1 ([facility]) prednisolone 3 MG/ML Oral Solution PrednisoLONE 15 MG/ 5ML PrednisoLONE 15 MG/5ML 04/19/2019 12:00:00 AM EST 15.0 {ml} suspende d PrednisoLONE 15 MG/5ML eCW1 ([facility]) prednisolone 3 MG/ML Oral Solution PrednisoLONE 15 MG/ 5ML PrednisoLONE 15 MG/5ML 04/19/2019 12:00:00 AM EST 15.0 {ml} suspende d PrednisoLONE 15 MG/5ML eCW1 ([facility]) PrednisoLONE 15 MG/5ML PrednisoLONE 15 MG/5ML 04/19/2019 12:00:00 A M EST 15.0 {ml} suspended PrednisoLONE 15 MG/5ML eCW1 ([facility]) tramadol hydrochloride 50 MG Oral Tablet Tramadol HCl 50 MG Tramadol HCl 50 MG 04/14/2019 12:00:00 AM EST active 1 tablet as needed eCW1 ([facility]) tramadol hydrochloride 50 MG Oral Tablet Tramadol HCl 50 MG Tramadol HCl 50 MG 04/14/2019 12:00:00 AM EST active 1 tablet as needed eCW1 ([facility]) tramadol hydrochloride 50 MG Oral Tablet Tramadol HCl 50 MG Tramadol HCl 50 MG 04/14/2019 12:00:00 AM EST active 1 tablet as needed eCW1 ([facility]) tramadol hydrochloride 50 MG Oral Tablet Tramadol HCl 50 MG Tramadol HCl 50 MG 04/14/2019 12:00:00 AM EST active 1 tablet as needed eCW1 ([facility]) tramadol hydrochloride 50 MG Oral Tablet Tramadol HCl 50 MG Tramadol HCl 50 MG 04/14/2019 12:00:00 AM EST active 1 tablet as needed eCW1 ([facility]) Levothyroxine Sodium 0.025 MG Oral Tablet Levothyroxin e Sodium 25 MCG Levothyroxine Sodium 25 MCG 03/29/2019 12:00:00 AM EST active 1 tablet in the morning on an empty stomach eCW1 ([facility]) Levothyroxine Sodium 0.025 MG Oral Tablet Levothyroxin e Sodium 25 MCG Levothyroxine Sodium 25 MCG 03/29/2019 12:00:00 AM EST active 1 tablet in the morning on an empty stomach eCW1 ([facility]) Levothyroxine Sodium 0.025 MG Oral Tablet Levothyroxin e Sodium 25 MCG Levothyroxine Sodium 25 MCG 03/29/2019 12:00:00 AM EST active 1 tablet in the morning on an empty stomach eCW1 ([facility]) Levothyroxine Sodium 0.025 MG Oral Tablet Levothyroxin e Sodium 25 MCG Levothyroxine Sodium 25 MCG 03/29/2019 12:00:00 AM EST active 1 tablet in the morning on an empty stomach eCW1 ([facility]) Levothyroxine Sodium 0.025 MG Oral Tablet Levothyroxin e Sodium 25 MCG Levothyroxine Sodium 25 MCG 03/29/2019 12:00:00 AM EST active 1 tablet in the morning on an empty stomach eCW1 ([facility]) Levothyroxine Sodium 0.025 MG Oral Tablet Levothyroxin e Sodium 25 MCG Levothyroxine Sodium 25 MCG 03/29/2019 12:00:00 AM EST active 1 tablet in the morning on an empty stomach eCW1 ([facility]) Levothyroxine Sodium 0.025 MG Oral Tablet Levothyroxin e Sodium 25 MCG Levothyroxine Sodium 25 MCG 03/29/2019 12:00:00 AM EST active 1 tablet in the morning on an empty stomach eCW1 ([facility]) Levothyroxine Sodium 0.025 MG Oral Tablet Levothyroxin e Sodium 25 MCG Levothyroxine Sodium 25 MCG 03/29/2019 12:00:00 AM EST active 1 tablet in the morning on an empty stomach eCW1 ([facility]) tramadol hydrochloride 50 MG Oral Tablet Tramadol HCl 50 MG Tramadol HCl 50 MG 02/17/2019 12:00:00 AM EST active 1 tablet as needed eCW1 ([facility]) tramadol hydrochloride 50 MG Oral Tablet Tramadol HCl 50 MG Tramadol HCl 50 MG 02/17/2019 12:00:00 AM EST active 1 tablet as needed eCW1 ([facility]) Blood Glucose Test - Blood Glucose Test - 02/17/2019 12:00:00 AM EST active as directed eCW1 ([facility]) tramadol hydrochloride 50 MG Oral Tablet Tramadol HCl 50 MG Tramadol HCl 50 MG 02/17/2019 12:00:00 AM EST active 1 tablet as needed eCW1 ([facility]) Lancets - Lancets - 02/17/2019 12:00:00 AM EST act [place] as directed eCW1 ([facility]) tramadol hydrochloride 50 MG Oral Tablet Tramadol HCl 50 MG Tramadol HCl 50 MG 02/17/2019 12:00:00 AM EST active 1 tablet as needed eCW1 ([facility]) tramadol hydrochloride 50 MG Oral Tablet Tramadol HCl 50 MG Tramadol HCl 50 MG 02/17/2019 12:00:00 AM EST active 1 tablet as needed eCW1 ([facility]) [place] UNK 02/17/2019 12:00:00 AM EST active as directed eCW1 ([facility]) tramadol hydrochloride 50 MG Oral Tablet Tramadol HCl 50 MG Tramadol HCl 50 MG 02/17/2019 12:00:00 AM EST active 1 tablet as needed eCW1 ([facility]) Insurance Providers Payer name Policy type / Coverage type Policy ID Covered democrat ID Covered democrat's relationship to gutierres Policy Gutierres Plan Information JORJE [id number] SP [id number] [place]ARE [place] O [id number] S [id number] Managed Care Jorje P UNAVAILABLE S UNAVAILABLE Medicaid S UNAVAILABLE S UNAVAILA BLE JORJE I [id number] Self [id number] JORJE CARE MEDICAID [id number] S [id number] [facility] CARE [id number] S [id number] ANSI-Commercial [id number] ANSI-Commercial [id number] ANSI-Commercial [id number] ANSI-Commercial [id number] ANSI-Commercial [id number] ANSI-Commercial [id number] ANSI-Commercial [id number]-[id number] ANSI-Commercial [id number] ANSI-Commercial [id number] ANSI-Commercial [id number]-[id number]-[id number] ANSI-Commercial [id number]-[id number]-[id number] ANSI-Commercial [id number] [facility] [id number] 18 [id number] ANSI-Commercial [id number]-[id number] ANSI-Commercial [id number]-[id number]-838n-nu1w-[id number] ANSI-Commercial [id number]-[id number] ANSI-Commercial [id number]-[id number] ANSI-Commercial [id number]-[id number] [id number]-[id number] [facility]LY [facility] [id number] SP [id number] 000 ANSI-Commercial [id number] ANSI-Commercial [id number]-[id number] ANSI-Commercial 188ogrdi-[id number]-[id number] 619tqgjk-ai07-0dm0fs82-3uw1-[id number] ANSI-Commercial [id number]-bq95-[id number] [id number] ANSI-Commercial [id number] MEDICAID [id number] SP [id number] [facility] ([facility]) [id number] Self [id number] ANSI-Commercial [id number]-[id number] ANSI-Commercial [id number] ANSI-Commercial 05ire4yo-7bv7-1431-[id number] 10gjj9nq-3gx8-5657-[id number] ANSI-Commercial [id number]-[id number]-[id number]-0h83-[id number] ANSI-Commercial is27fw5q-3u0p-[id number] [id number]-3a2w-16h2-4d24-82e5rkwc3215 ANSI-Commercial [id number]-582m-[id number] ANSI-Commercial [id number]-[id number]-shmg-[id number]-ppqj-[id number] [facility] P [id number] S [id number] ANSI-Commercial [id number] [id number] ANSI-Commercial [id number] ANSI-Commercial [id number]-29a3-2ti5-u180-wmrclz88fw9v [id number]-38o9-8zp9-s069-oagoup05qd2g ANSI-Commercial [id number]-[id number] [id number]-[id number]-[id number] [place] [facility] Commercial [id number] Self [id number] ANSI-Commercial [id number]-a3p5-8l1t-r5d8-[id number] ANSI-Commercial [id number]-avsz-[id number]-hltg-[id number] ANSI-Commercial [id number]-ke06-5m19-[id number]-au31-8j80-[id number] [facility] Commercial [id number] Self [id number] [employer]-Commercial [id number] [facility] [id number] SP [id number] [employer]-Commercial [id number]-[id number] ANSI-Commercial [id number] Medicaid [place] Medigap Part B [id number] Self [id number] [place] [facility] [place] Medicaid [id number] Self [id number] ANSI-Commercial [id number] [facility] [id number] SP [id number] [facility] [place] Medicaid [id number] Self [id number] SELF PAY ONLY [id number] SP [id number] [facility] [id number] S [id number] Problems, Conditions, and Diagnoses Code Display Name Description Problem Type Effective Dates Data Source(s) J45.901 [id number] Exacerbation of asth ma, unspecified asthma severity, unspecified whether persistent Problem 05/12/2019 12:00:00 AM EST eC W1 ([facility]) J45.901 [id number] Exacerbation of asth ma, unspecified asthma severity, unspecified whether persistent Problem 05/12/2019 12:00:00 AM EST eC W1 ([facility]) F33.0 [id number] Major depressive disorder, recurrent, mil d Problem 05/07/2019 12:00:00 AM EST eCW1 ([facility]) F33.0 507765476 Major depressive disorder, recurrent, mil d Problem 05/07/2019 12:00:00 AM EST eCW1 ([facility]) F43.10 30676682 Post-traumatic stress disorder, unspecifi ed Problem 05/07/2019 12:00:00 AM EST eCW1 ([facility]) F41.9 641051854 Anxiety disorder, unspecified type Proble m 05/07/2019 12:00:00 AM EST eCW1 ([facility]) D50.8 10810735 Other iron deficiency anemia Problem 020 12:00:00 AM EST eCW1 ([facility]) D50.8 83843932 Other iron deficiency anemia Problem 020 12:00:00 AM EST eCW1 ([facility]) G89.29 75898721 Other chronic pain Problem 04/14/2019 12:00: 00 AM EST eCW1 ([facility]) M54.6 [id number] Pain in thoracic spine Problem 04/14/19 20 12:00:00 AM EST eCW1 ([facility]) G89.29 55569050 Other chronic pain Problem 04/14/2019 12:00: 00 AM EST eCW1 ([facility]) M54.6 [id number] Pain in thoracic spine Problem 04/14/19 20 12:00:00 AM EST eCW1 ([facility]) I26.99 46722113 Pulmonary embolism, unspecified chronicity, unspecified pulmonary embolism type, unspecified whether acute cor pulmonale present Problem 02/17/2019 12:00:00 AM EST eCW1 ([facility]) I26.99 70553453 Pulmonary embolism, unspecified chronicity, unspecified pulmonary embolism type, unspecified whether acute cor pulmonale present Problem 02/17/2019 12:00:00 AM EST eCW1 ([facility]) R53.83 Other fatigue Other fatigue Diagnosis 06/10/2019 10:26:[address] [facility] Surgeries/Procedures Procedure Description Date Indications Data Source(s) PSYTX W PT 45 MINUTES 07/08/2019 12:00:00 AM EDT eCW1 ([facility]) FLOW CYTOMETRY CELL CYCLE/DNA BRADLEY LEUKEMIA / LYMPHOM A PHENOTYPE, PERIPHERAL BLOOD Routine 06/10/2019 9:50 AM EDT 06/10/2019 01:50 :00 PM [facility] REAGENT STRIP/BLOOD GLUCOSE 05/28/2019 12:00:00 AM EDT eCW1 ([facility]) Transitional Care NO CHARGE Visit 05/24/2019 12:00:00 AM EDT eCW1 ([facility]) PSYCH DIAGNOSTIC EVALUATION 05/07/2019 12:00:00 AM EST eCW1 ([facility]) OSTEOPATH MANJ 3-4 REGIONS 04/29/2019 12:00:00 AM EST eCW1 ([facility]) RADIOLOGIC EXAM KNEE COMPLETE 4/MORE VIEWS 02/18/2019 12:00:00 AM EST MEDENT ([facility] ) Albuterol, inhalation solution, fda-appr anson final product, non-compounded, administered through dme, unit dose, 1 mg 02/04/2019 12:00:00 AM EST eCW1 ([facility]) NEB/MDI RX INITIAL 02/04/2019 12:00:00 AM EST eCW1 ([facility]) Results ID Date Data Source [id number] 06/14/2019 02:14:00 PM [facility] Hematopathology ReportName: MARAH ALEKS MujicaMRN: [id number] Number: [id number] Date: 06/10/2019 09:50Received Date: 06/11/2019 13:40Physician(s): ZOHAIB AMADOR MD HAGHIR, SHAHANDEH F,[facility] [place] To[facility]) ReceivedA: Blood, Flow Cytometry; Received 2 green top PB (2 EDTA PB to Molecular)Clinical HistoryAtypical lymphocytes. History of leukocytosis.TEST REQUESTED/PERFORMED: Flow cytometry analysis DiagnosisFlow cytometry of blood: No evidence of leukemia or non-Hodgkin lymphoma. Decreased CD4/CD8 ratio, likely reactive. Anand Smith M.D.;Hematopathology FellowEle ctronically Signed By Lona Garza M.D. Attending Pathologist 06/14/2019 14:14:52The attending pathologist named above attests that he/she has personallyreviewed the relevant preparation(s) for the specimen(s) and rendered thefinal diagnosis. ProceduresFlow Cytometry Date Ordered:06/11/2019 Status: Signed Out06/14/2019 InterpretationPERIPHERAL BLOOD: CBC performed at [facility] (06/10/19)WBC 7.7 K/uLRBC *3.98 M/uLHgb *10.9 g/dLHct 37.1 %MCV 93.2 fLMCH 27.4 pgMCHC *29.4 g/dLRDW *23.6 %Platelets 283 K/ulDifferential Count (automated): 0.5 % Immature Uwvvmnqmdetv22.7 % Neutrophils 3.1 % Eosinophils 0.7 % Ildyhohhl95.0 % Lymphocytes 8.0 % Monocytes-------100.0 % A few lymphocytes have irregular nuclear contours. Increased anisocytosisand a few elliptocytes and dacryocytes seen. Mildly increased rouleauxformation. Lymphoid Panel: The following markers were assayed: CD45 (gate), CD2, CD3, CD4, CD5, CD7,CD8, CD10, CD11c, CD19, CD20, CD22, CD23, CD25, CD38, CD56, CD57, CD103,[place], Lambda, and FMC7.# events: [id number]: 98%Flow Cytometry Differential (CD45/SSC)Lymphocyte Zwolle: 43%CD45 dim Zwolle: 0%Monocyte Zwolle: 4%Granulocyte Zwolle: 49%Nucleated/Erythroid Zwolle: 1%The lymphocyte gate showsB-cells (CD19): 3%[place]/Lambda Ratio: 1.4T- cells (CD3): 82%NK-cells (CD3-/CD56+): 12%CD4/CD8 Ratio: 0.5Results: (expressed as % of lymphocyte gate)T-cell Markers: CD2 = 90, CD3 = 82, CD3/CD4 = 26, CD3/CD8 = 55, CD5 = 80,CD7 = 86, CD3/57 = 14B-cell markers: [place] = 1, Lambda = 1, CD19 = 3, CD20 = 3, CD19/10 = 0,CD19/CD5 = 0, CD38/CD20 = 2, CD22 = 4, CD19/CD23 = 2, FMC7 = 2Light chain as % of B-Cells: CD19/[place] = 35, CD19/Lambda = 26,CD19/CD5/[place] = 1, CD19/CD5/Lambda = 0, CD19/CD10/[place] = 0,CD19/CD10/Lambda = 0CD38 on CD19/5 positive cells: 80%NK cell Markers: CD56 = 24, CD57 = 21Other Markers: CD25 = 6, CD103 = 1, CD11c = 17, CD103/CD11c = 0, CD103/25= 0, CD103/22 = 0 CD10 = 0, CD38 = 28 Results-CommentsLymphocytes consist predominantly of T cells with normal expression of panT-cell markers and decreased CD4/CD8 ratio, normal proportions of NK andcytotoxic T cells, and polyclonal B cells.Procedure Electronically Signed By:Lona Garza M.D.06/14/2019 This report may include one or more immunohistochemical stain/fluorochromeconjugated monoclonal antibody results that use analyte specific reagents.All positive and negative controls have been reviewed by the attendingpathologist and are satisfactory. The tests were developed and theirperformance characteristics determined by [facility] Pathology department.They have not been cleared or approved by the [place] Food and DrugAdministration. The FDA has determined that such clearance or approval isnot necessary. Name Value Range Interpretation Code Description Data Naa rce(s) Supporting Document(s) ID Date Data Source [id number] 06/11/2019 02:27:55 PM EDT [facility] Name Value Range Interpretation Code Description Data Naa e(s) Supporting Document(s) Flow cytometry study [facility] ID Date Data Source Pathology Request For Service 04/29/2019 12:00:00 AM EST eCW 1 ([facility]) Name Value Range Interpretation Code Description Data Naa rce(s) Supporting Document(s) PERIPHERAL SMEAR-PATH REVIEW e CW1 ([facility]) ID Date Data Source TRANSFERRIN 04/29/2019 12:00:00 AM EST eCW1 ([facility]) Name Value Range Interpretation Code Description Data Naa rce(s) Supporting Document(s) 391 200-370 TRANSFERRIN eCW1 ([facility]) ID Date Data Source VITB12 & FOL 04/29/2019 12:00:00 AM EST eCW1 ([facility]) Name Value Range Interpretation Code Description Data Naa rce(s) Supporting Document(s) 507 VITAMIN B12 LEVEL eCW1 ([facility]) 7.3 FOLATE eCW1 ([facility]) ID Date Data Source TOTAL IRON BINDING CAPACIT 04/29/2019 12:00:00 AM EST eCW1 ( [facility]) Name Value Range Interpretation Code Description Data Naa rce(s) Supporting Document(s) 20 50-170 IRON (FE) eCW1 ([facility]) 480 250-450 TOTAL IRON BINDING CAPACI TY eCW1 ([facility]) 4.2 13.2-45.0 PERCENT SATURATION eCW1 ([facility]) ID Date Data Source Reticulocyte Count Sysmex 04/29/2019 12:00:00 AM EST eCW1 ([facility]) Name Value Range Interpretation Code Description Data Naa rce(s) Supporting Document(s) 2.1 0.5-1.5 RETICULOCYTE % eCW1 ([facility]) ID Date Data Source PERIPH SMEAR FOR PATH REVIEW 04/29/2019 12:00:00 AM EST eCW1 ([facility]) Name Value Range Interpretation Code Description Data Naa rce(s) Supporting Document(s) Report SLIDE REVIEW eCW1 ([facility]) PERIPHERAL SMEAR SOURCE eCW1 ([facility]) ID Date Data Source FERRITIN 04/29/2019 12:00:00 AM EST eCW1 ([facility]) Name Value Range Interpretation Code Description Data Naa rce(s) Supporting Document(s) 12 8-252 FERRITIN eCW1 ([facility]) ID Date Data Source CBC with Differential 04/29/2019 12:00:00 AM EST eCW1 ([facility]) Name Value Range Interpretation Code Description Data Naa rce(s) Supporting Document(s) 40.5 24.0-44.0 LYMPH % eCW1 ([facility]) 49.4 36.0-66.0 NEUTROPHILS % eCW1 ([facility]) 6.7 0.0-5.0 MONO % eCW1 ([facility]) 0.6 0.0-1.0 BASO % eCW1 ([facility]) 2.3 0.0-3.0 EOS % eCW1 ([facility]) 0.7 0.0-0.8 MONO # eCW1 ([facility]) 0.3 0.0-0.5 EOS # eCW1 ([facility]) 4.5 1.5-5.0 LYMPH # eCW1 ([facility]) 5.5 1.5-8.5 NEUTROPHILS # eCW1 ([facility]) 0.1 0.0-0.2 BASO # eCW1 ([facility]) 3.93 4.00-5.40 RED BLOOD COUNT eCW1 ([facility]) 12.0 4.0-10.0 WHITE BLOOD COUNT eCW1 ([facility]) 9.7 12.0-15.5 HEMOGLOBIN eCW1 ([facility]) 33.4 36.0-47.0 HEMATOCRIT eCW1 ([facility]) 85.0 80.0-96.0 MEAN CORPUSCULAR VOLUME e CW1 ([facility]) 24.7 27.0-33.0 MEAN CORPUSCULAR HEMOGLOB IN eCW1 ([facility]) 29.0 32.0-36.5 MEAN CORPUSCULAR HGB CONC eCW1 ([facility]) 16.4 11.5-14.5 RED CELL DISTRIBUTION WID TH eCW1 ([facility]) 300 150-450 PLATELET COUNT, AUTOMATED eCW1 ([facility]) ID Date Data Source GAMMA GLUTAMYLTRANSPEPTIDASE 04/14/2019 12:00:00 AM EST eCW1 ([facility]) Name Value Range Interpretation Code Description Data Naa rce(s) Supporting Document(s) 75 5-55 GAMMA GLUTAMYLTRANSPEPTIDASE e CW1 ([facility]) ID Date Data Source VITAMIN D 25-HYDROXY 04/14/2019 12:00:00 AM EST eCW1 ([facility]) Name Value Range Interpretation Code Description Data Naa rce(s) Supporting Document(s) 13.3 30.0-100.0 TOTAL 25(OH) VITAMIN D eC W1 ([facility]) ID Date Data Source PTH INTACT 04/14/2019 12:00:00 AM EST eCW1 ([facility]) Name Value Range Interpretation Code Description Data Naa rce(s) Supporting Document(s) 42.4 18.5-88.0 PTH INTACT eCW1 ([facility]) ID Date Data Source LIVER PROFILE 04/14/2019 12:00:00 AM EST eCW1 ([facility]) Name Value Range Interpretation Code Description Data Naa rce(s) Supporting Document(s) 0.2 0.2-1.0 BILIRUBIN,TOTAL eCW1 ([facility]) 32 7-37 AST/SGOT eCW1 ([facility]) 60 12-78 ALT/SGPT eCW1 ([facility]) < 0.1 0.0-0.2 BILIRUBIN,DIRECT eCW1 ([facility]) 212 45-117 ALKALINE PHOSPHATASE eCW1 ([facility]) 7.8 6.4-8.2 TOTAL PROTEIN eCW1 ([facility]) 3.7 3.2-5.2 ALBUMIN eCW1 ([facility]) 0.90 1.00-1.93 ALBUMIN/GLOBULIN RATIO eCW1 ([facility]) ID Date Data Source Basic Metabolic Profile (BMP) 04/14/2019 12:00:00 AM EST eCW 1 ([facility]) Name Value Range Interpretation Code Description Data Naa rce(s) Supporting Document(s) 15 7-18 BLOOD UREA NITROGEN eCW1 ([facility]) 75 70-100 GLUCOSE, FASTING eCW1 ([facility]) 0.76 0.55-1.30 CREATININE FOR GFR eCW1 ([facility]) > 60.0 >58 GLOMERULAR FILTRATION RATE eCW 1 ([facility]) 107 98-107 CHLORIDE LEVEL eCW1 ([facility]) 4.1 3.5-5.1 POTASSIUM SERUM eCW1 ([facility]) 140 136-145 SODIUM LEVEL eCW1 ([facility]) 9.1 8.5-10.1 CALCIUM LEVEL eCW1 ([facility]) 26 21-32 CARBON DIOXIDE LEVEL eCW1 ([facility]) ID Date Data Source [id number] 04/14/2019 12:00:00 AM EST eCW1 ([facility]) Name Value Range Interpretation Code Description Data Naa rce(s) Supporting Document(s) Microalbumin/Creatinine [Mass Ratio] in Urine 114.0 CREATININE, URINE eCW1 ([facility]) Albumin/Creatinine [Mass Ratio] in Urine 6.7 MALB URINE SIEMENS eCW1 ([facility]) Microalbumin/Creatinine [Ratio] in Urine 5.8 0.0-30.0 MERE/CREAT RATIO eCW1 ([facility]) ID Date Data Source LIPID PANEL (CARDIAC RISK) 04/14/2019 12:00:00 AM EST eCW1 ( [facility]) Name Value Range Interpretation Code Description Data Naa rce(s) Supporting Document(s) Triglyceride [Mass/volume] in Serum or Plasma by calculation 156 <150 TRIGLYCERIDES LEVEL eCW1 ([facility]) Cholesterol [Moles/volume] in Serum or Plasma 205 <200 CHOLESTEROL LEVEL eCW1 ([facility]) Cholesterol in LDL [Mass/volume] in Serum or Plasma by calculation 131 <100 LDL CHOLESTEROL eCW1 ([facility]) Cholesterol in HDL [Moles/volume] in Serum or Plasma 43 >40 HDL CHOLESTEROL eCW1 ([facility]) 4.767 <5 CHOLESTEROL RISK RATIO eCW1 ([facility]) 162 NON-HDL-C eCW1 ([facility]) ID Date Data Source [id number] 04/14/2019 12:00:00 AM EST eCW1 ([facility]) Name Value Range Interpretation Code Description Data Naa rce(s) Supporting Document(s) Hemoglobin A1c/Hemoglobin.total in Blood 10.4 HEMOGLOBIN A1c W1 ([facility]) ID Date Data Source [id number] 04/07/2019 01:00:23 PM [facility] Vital SignsBlood Pressure: 144/88 Patient History Medical History:Diabetes - Type IIHypertensionNeuropathyPTSDFibomymiagiaAnxietyAlpha 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 AsthmaBlood clot in lungs- 2019Social/Personal History: Smoking Status: former smokerCurrent Problems: Teeth extraction (ICD-525.10) (FBZ12-H81.499)Dental caries (ICD-521.00) (ICD10- K02.9)Current Medications: * ELIQUIS * AMLODIPINE * CANNABIDIOL * TRULICITY * HYDROCODONE * ZOFRAN * ABILIFY * DOXYCYCLINE * PREDNISONE * FLUTISONE * ZYRTEC * CHOLECALCIFEROL * PRAZOSIN * TYLENOL #3 * CARAFATE * CETRIZINE * PROTONIX * GABAPENTIN * TIZANIDINE * LEVOTHRYXINE * VENLAFAXINE * HCTZ * BUSPIRONE * FERROUS * CYMBALTA * DOCUSATE * RANTIDINE * MELOICAM * TRAZODONE * SYMBICORT * SINGULAIR * IPRATROPIUM * LISINOPRIL * TOTIRAMATE * HUMULIN * VENTOLIN * SUMTRIPTIN Current Allergies: * METFORMIN (Critical)* ANTIVERT (Critical)* PREDNISONE -PILL FORM ONLY (Critical)Past Medical History:Diabetes - Type IIHypertensionNeuropathyPTSDFibomymiagiaAnxietyAlpha 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 AsthmaBlood clot in lungs- 2018 Dental Chart: Procedures:Type - CDT Code - Description B - (D1110) Prophylaxis, adult (Performed by Timur ABRAHAM Alem) B - (D0120) Periodic oral evaluation - established patient (Performed by Lorene Hernández DMD) Chart Notes:mac (Apr 07 2019 2:56PM): [facility]). CC: none. Reviewed Xrays. Exam: no caries detected. OCS: WNL, IO/ EO completed, No significant hard findings upon clinical exam Pt was cooperative.OHI givenReferral: N/ANV:recallTimur VACAMike Davis by mac (04/07/2019 2:56 PM): ; norberto (Apr 07 2019 1:40PM): [place]-FairAdult prophy, No x-rays indicated.Pt states she is brushing usually once a day and flosses using floss piks. Stressed TB bid (inst on technique), flossing and Fl2 rinse QD. Trace calculus and biofilm. Tissue light marginal inflammation; light bleeding with hand scaling. Several interproximal watches from previous visits. BP was 144/88 pt states she forgot to take her meds this morning. Med Hx reviewed with pt and updated. Currently on Eliquis for a blood clot in her lung Late summer of last year. 6 month recall. Exc pt. Timur ABRAHAMAlem by norberto (04/07/2019 1:34 PM): Tooth Notes and Watches:- Tooth 12 Watch: Alem Beaulieu by norberto (04/02/2018 8:54 AM): - Tooth 13 Watch: MesialAlem Ding by norberto (04/02/2018 8:59 AM): - Tooth 28 Watch: Alem Beaulieu by norberto (10/01/2018 1:34 PM): - Tooth 6 Watch: Alem Beaulieu by norberto (10/01/2018 1:34 PM): Assessment & Plan Medications:ELIQUISAMLODIPINECANNAB IDIOLTRULICITYHYDROCODONEZOFRANABILIFYDOXYCYCLINEPREDNISONEFLUTISONEZYRTECCHOLEC ALCIFEROLPRAZOSINTYLENOL #3CARAFATECETRIZINEPROTONIXGABAPENTINTIZANIDINELEVOTHRYXINEVENLAFAXINEHCTZBUSPIR ONEFERROUSCYMBALT ADOCUSATERANTIDINEMELOICAMTRAZODONESYMBICORTSINGULAIRIPRATROPIUMLISINOPRILTOTIRA MATEHUMULINVENTOLINSUMTRIPTINMedication Changes:Added: * ELIQUISAllergies:* METFORMIN (Critical)* ANTIVERT (Critical)* PREDNISONE -PILL FORM ONLY (Critical)Clinical Visit Summary DeclinedSmoking, Tobacco or Smoke Exposure StatusSmoke Status: former smokerTobacco Use: NoClinical List ReviewProblem ReviewProblem List was reviewed and/or updated during this visit.Medication Reconciliation & ReviewMedication List was reviewed and/or updated during this visit, including review of any [id number] medications, herbal therapies, and/or supplements.Allergy ReviewAllergy List was reviewed and/or updated during this visit. Name Value Range Interpretation Code Description Data Naa rce(s) Supporting Document(s) ID Date Data Source [id number] 04/01/2019 10:41:53 AM [facility] Current Problems: Teeth extraction (ICD- 525.10) (NXC78-W60.499)Dental caries (ICD-521.00) (DGQ03-W75.9)Current Medications: * AMLODIPINE * CANNABIDIOL * TRULICITY * HYDROCODONE * ZOFRAN * ABILIFY * DOXYCYCLINE * PREDNISONE * FLUTISONE * ZYRTEC * CHOLECALCIFEROL * PRAZOSIN * TYLENOL #3 * CARAFATE * CETRIZINE * PROTONIX * GABAPENTIN * TIZANIDINE * LEVOTHRYXINE * VENLAFAXINE * HCTZ * BUSPIRONE * FERROUS * CYMBALTA * DOCUSATE * RANTIDINE * MELOICAM * TRAZODONE * SYMBICORT * SINGULAIR * IPRATROPIUM * LISINOPRIL * TOTIRAMATE * HUMULIN * VENTOLIN * SUMTRIPTIN Current Allergies: * METFORMIN (Critical)* ANTI VERT (Critical)* PREDNISONE -PILL FORM ONLY (Critical) Dental Chart: Procedures:Type - CDT Code - Description B - (D2150) Amalgam, 2 surfaces, primary or permanent on Tooth # 15 on Tooth Surface DO (Performed by Lorene Hernández DMD) B - (D2150) Amalgam, 2 surfaces, primary or permanent on Tooth # 16 on Tooth Surface MO (Performed by Lorene Hernández DMD) Chart Notes:mac (Apr 01 2019 12:36PM): [facility] (-)per pt is now taking Eliquis due to a blood clot in her lung back in August. CC: none. Took BP: 153/112. Waited and had Alem check again 134/92. Cetacaine spray used as topical. 1 carp Lidocaine HCL 2% with 1:100,000 epi. Operative: #15-DO, 16-MO Gluma and Amalgam. Excavated with High Speed, Slow Speed and Spoon. Occlusion checked and polished. No complications. POI given. Assisted by:AM. Pt was cooperative. NV: Lorene Hernández DMD by mac (04/01/2019 12:36 PM): Tooth Notes and Watches:- Tooth 12 Watch: Alem Beaulieu by norberto (04/02/2018 8:54 AM): - Tooth 13 Watch: Mesial Alem Ding by norberto (04/02/2018 8:59 AM): - Tooth 28 Watch: Alem Beaulieu by norberto (10/01/2018 1:34 PM): - Tooth 6 Watch: Alem Beaulieu by norberto (10/01/2018 1:34 PM): Assessment & Plan Medications:AMLODIPINECANNABIDIOLTRULICITYHYDROCODONEZOFRANABILIFYDOXYCYCLINEPRE DNISONEFLUTISONEZYRTECCHOLECALCIFEROLPRAZOSINTYLENOL #3CARAFATECETRIZINEPROTONIXGABAPENTINTIZANIDINELEVOTHRYXINEVENL AFAXINEHCTZBUSPIRONEFERROUSCYMBALTADOCUSATERANTIDINEMELOICAMTRAZODONESYMBICORTSI NGULAIRIPRATROPIUMLISINOPRILTOTIRAMATEHUMULINVENTOLINSUMTRIPTINAllergies:* METFORMIN (Critical)* ANTIVERT (Critical)* PREDNISONE -PILL FORM ONLY (Critical) Name Value Range Interpretation Code Description Data Naa rce(s) Supporting Document(s) Procedure Social History Code Duration Value Status Description Data Source(s ) Smoking 12/16/2019 12:00:00 AM EDT Former Smoker completed Former Smoker eCW1 ([facility]) Smoking 12/16/2019 12:00:00 AM EDT Former Smoker completed Former Smoker eCW1 ([facility]) Smoking 12/16/2019 12:00:00 AM EDT Former Smoker completed Former Smoker eCW1 ([facility]) Smoking 12/16/2019 12:00:00 AM EDT Former Smoker completed Former Smoker eCW1 ([facility]) Smoking 12/16/2019 12:00:00 AM EDT Former Smoker completed Former Smoker eCW1 ([facility]) Smoking 12/16/2019 12:00:00 AM EDT Former Smoker completed Former Smoker eCW1 ([facility]) Smoking 12/16/2019 12:00:00 AM EDT Former Smoker completed Former Smoker eCW1 ([facility]) Smoking 07/25/2019 12:00:00 AM EDT Former Smoker completed Former Smoker eCW1 ([facility]) Smoking 04/16/2019 12:00:00 AM EST Patient is a former smoker completed Patient is a former smoker MAYRA ([facility], ) Vital Signs ID Date Data Source UNK Name Value Range Interpretation Code Description Data Source(s) Body surface area Derived from formula 1.99 m2 1.99 m2 MAYRA ([facility], ) Body weight 93.895 kg 93.895 kg [facility] [place] body weight 120 [lb_av] 120 [lb_av] MEDEN T ([facility]) Body mass index (BMI) [Ratio] 35.5 kg/m2 35.5 k g/m2 [facility] ([facility]) Body weight 207.00 [lb_av] 207.00 [lb_av] MEDEN T ([facility]) Body height 64 [in_i] 64 [in_i] [facility] ([facility]) 5'4" Diastolic blood pressure 109 mm[Hg] 109 mm[Hg] [facility]) Systolic blood pressure 156 mm[Hg] 156 mm[Hg] [facility] Diastolic blood pressure 84 mm[Hg] 84 mm[Hg] eCW1 ([facility]) Systolic blood pressure 115 mm[Hg] 115 mm[Hg] e CW1 ([facility]) Body temperature 97.8 [degF] 97.8 [degF] eCW1 ( [facility]) Respiratory rate 18 /min 18 /min eCW1 ([facility]) Heart rate 108 /min 108 /min eCW1 ([facility]) Body mass index (BMI) [Ratio] 35.87 kg/m2 35.87 kg/m2 W1 ([facility]) Body height 64 [in_i] 64 [in_i] eCW1 ([facility]) Body weight 209 [lb_av] 209 [lb_av] eCW1 ([facility]) Body temperature 97.6 [degF] 97.6 [degF] MEDENT ([facility]) Respiratory rate 18 /min 18 /min MEDENT ( [facility]) Diastolic blood pressure 94 mm[Hg] 94 mm[Hg] MEDENT ([facility]) Systolic blood pressure 154 mm[Hg] 154 mm[Hg] M EDENT ([facility]) Body mass index (BMI) [Ratio] 36.0 kg/m2 36.0 k g/m2 MEDENT ([facility]) Body weight 210.00 [lb_av] 210.00 [lb_av] MEDEN T ([facility]) Body height 64 [in_i] 64 [in_i] MEDENT ([facility]) 5'4" Body temperature 97.6 [degF] 97.6 [degF] eCW1 ( [facility]) Respiratory rate 20 /min 20 /min eCW1 ([facility]) Heart rate 134 /min 134 /min eCW1 ([facility]) Body mass index (BMI) [Ratio] 36.04 kg/m2 36.04 kg/m2 eCW1 ([facility]) Body height 64 [in_us] 64 [in_us] eCW1 ([facility]) Body weight Measured 210 [lb_av] 210 [lb_av] eC W1 ([facility]) Diastolic blood pressure 90 mm[Hg] 90 mm[Hg] eCW1 ([facility]) Systolic blood pressure 121 mm[Hg] 121 mm[Hg] e CW1 ([facility]) Diastolic blood pressure 86 mm[Hg] 86 mm[Hg] eCW1 ([facility]) Systolic blood pressure 129 mm[Hg] 129 mm[Hg] e CW1 ([facility]) Body temperature 97.8 [degF] 97.8 [degF] eCW1 ( [facility]) Respiratory rate 18 /min 18 /min eCW1 ([facility]) Heart rate 99 /min 99 /min eCW1 ([facility]) Body mass index (BMI) [Ratio] 36.04 kg/m2 36.04 kg/m2 eCW1 ([facility]) Body height 64 [in_us] 64 [in_us] eCW1 ([facility]) Body weight Measured 210 [lb_av] 210 [lb_av] eC W1 ([facility]) Diastolic blood pressure 91 mm[Hg] 91 mm[Hg] eCW1 ([facility]) Systolic blood pressure 132 mm[Hg] 132 mm[Hg] e CW1 ([facility]) Body temperature 98.7 [degF] 98.7 [degF] eCW1 ( [facility]) Respiratory rate 18 /min 18 /min eCW1 ([facility]) Heart rate 94 /min 94 /min eCW1 ([facility]) Body mass index (BMI) [Ratio] 36.21 kg/m2 36.21 kg/m2 eCW1 ([facility]) Body height 64 [in_us] 64 [in_us] eCW1 ([facility]) Body weight Measured 211 [lb_av] 211 [lb_av] eC W1 ([facility]) Diastolic blood pressure 86 mm[Hg] 86 mm[Hg] eCW1 ([facility]) Systolic blood pressure 146 mm[Hg] 146 mm[Hg] e CW1 ([facility]) Body temperature 97.7 [degF] 97.7 [degF] eCW1 ( [facility]) Respiratory rate 18 /min 18 /min eCW1 ([facility]) Heart rate 102 /min 102 /min eCW1 ([facility]) Body mass index (BMI) [Ratio] 36.04 kg/m2 36.04 kg/m2 eCW1 ([facility]) Body height 64 [in_us] 64 [in_us] eCW1 ([facility]) Body weight Measured 210 [lb_av] 210 [lb_av] eC W1 ([facility]) Body mass index (BMI) [Ratio] 36.04 kg/m2 36.04 kg/m2 eCW1 ([facility]) Body height 64 [in_us] 64 [in_us] eCW1 ([facility]) Body weight Measured 210 [lb_av] 210 [lb_av] eC W1 ([facility]) Diastolic blood pressure 100 mm[Hg] 100 mm[Hg] eCW1 ([facility]) Systolic blood pressure 146 mm[Hg] 146 mm[Hg] e CW1 ([facility]) Body temperature 98.0 [degF] 98.0 [degF] eCW1 ( [facility]) Respiratory rate 18 /min 18 /min eCW1 ([facility]) Heart rate 96 /min 96 /min eCW1 ([facility]) Diastolic blood pressure 85 mm[Hg] 85 mm[Hg] eCW1 ([facility]) Systolic blood pressure 135 mm[Hg] 135 mm[Hg] e CW1 ([facility]) Body temperature 97.7 [degF] 97.7 [degF] eCW1 ( [facility]) Respiratory rate 18 /min 18 /min eCW1 ([facility]) Heart rate 100 /min 100 /min eCW1 ([facility]) Body mass index (BMI) [Ratio] 36.39 kg/m2 36.39 kg/m2 eCW1 ([facility]) Body height 64 [in_us] 64 [in_us] eCW1 ([facility]) Body weight Measured 212 [lb_av] 212 [lb_av] eC W1 ([facility]) Diastolic blood pressure 88 mm[Hg] 88 mm[Hg] eCW1 ([facility]) Systolic blood pressure 127 mm[Hg] 127 mm[Hg] e CW1 ([facility]) Body temperature 99.0 [degF] 99.0 [degF] eCW1 ( [facility]) Respiratory rate 16 /min 16 /min eCW1 ([facility]) Heart rate 83 /min 83 /min eCW1 ([facility]) Body mass index (BMI) [Ratio] 35.53 kg/m2 35.53 kg/m2 eCW1 ([facility]) Body height 64 [in_us] 64 [in_us] eCW1 ([facility]) Body weight Measured 207 [lb_av] 207 [lb_av] eC W1 ([facility]) Diastolic blood pressure 77 mm[Hg] 77 mm[Hg] eCW1 ([facility]) Systolic blood pressure 114 mm[Hg] 114 mm[Hg] e CW1 ([facility]) Body temperature 98.7 [degF] 98.7 [degF] eCW1 ( [facility]) Respiratory rate 18 /min 18 /min eCW1 ([facility]) Heart rate 86 /min 86 /min eCW1 ([facility]) Body mass index (BMI) [Ratio] 35.18 kg/m2 35.18 kg/m2 eCW1 ([facility]) Body height 64 [in_us] 64 [in_us] eCW1 ([facility]) Body weight Measured 205 [lb_av] 205 [lb_av] eC W1 ([facility]) Diastolic blood pressure 84 mm[Hg] 84 mm[Hg] eCW1 ([facility]) Systolic blood pressure 135 mm[Hg] 135 mm[Hg] e CW1 ([facility]) Body temperature 98 [degF] 98 [degF] eCW1 ([facility]) Respiratory rate 22 /min 22 /min eCW1 ([facility]) Heart rate 112 /min 112 /min eCW1 ([facility]) Body mass index (BMI) [Ratio] 34.50 kg/m2 34.50 kg/m2 eCW1 ([facility]) Body height 64 [in_us] 64 [in_us] eCW1 ([facility]) Body weight Measured 201 [lb_av] 201 [lb_av] eC W1 ([facility]) Patient Treatment Plan of Care Planned Activity Planned Date Details Description Data Source (s) Glucometer 01/10/2020 12:00:00 AM EDT e CW1 ([facility]) Lancets - 01/10/2020 12:00:00 AM EDT e CW1 ([facility]) Glucometer 01/10/2020 12:00:00 AM EDT e CW1 ([facility]) Lancets - 01/10/2020 12:00:00 AM EDT e CW1 ([facility]) Glucometer 01/10/2020 12:00:00 AM EDT e CW1 ([facility]) Lancets - 01/10/2020 12:00:00 AM EDT e CW1 ([facility]) Glucometer 01/10/2020 12:00:00 AM EDT e CW1 ([facility]) Lancets - 01/10/2020 12:00:00 AM EDT e CW1 ([facility]) Glucometer 01/10/2020 12:00:00 AM EDT e CW1 ([facility]) Lancets - 01/10/2020 12:00:00 AM EDT e CW1 ([facility]) Glucometer 01/10/2020 12:00:00 AM EDT e CW1 ([facility]) Lancets - 01/10/2020 12:00:00 AM EDT e CW1 ([facility]) Acetaminophen 325 MG / Hydrocodone Bitartrate 5 MG Ora l Tablet 12/29/2019 12:00:00 AM EDT eCW1 ([facility]) Acetaminophen 325 MG / Hydrocodone Bitartrate 5 MG Ora l Tablet 12/29/2019 12:00:00 AM EDT eCW1 ([facility]) Acetaminophen 325 MG / Hydrocodone Bitartrate 5 MG Ora l Tablet 12/29/2019 12:00:00 AM EDT eCW1 ([facility]) Acetaminophen 325 MG / Hydrocodone Bitartrate 5 MG Ora l Tablet 12/29/2019 12:00:00 AM EDT eCW1 ([facility]) Acetaminophen 325 MG / Hydrocodone Bitartrate 5 MG Ora l Tablet 12/29/2019 12:00:00 AM EDT eCW1 ([facility]) Acetaminophen 325 MG / Hydrocodone Bitartrate 5 MG Ora l Tablet 12/29/2019 12:00:00 AM EDT eCW1 ([facility]) Acetaminophen 325 MG / Hydrocodone Bitartrate 5 MG Ora l Tablet 12/29/2019 12:00:00 AM EDT eCW1 ([facility]) Fluconazole 150 MG Oral Tablet [Diflucan] 06/09/2019 12:00:00 AM ED T eCW1 ([facility]) PrednisoLONE 15 MG/5ML 05/12/2019 12:00:00 AM EST eCW1 ([facility]) Doxycycline Monohydrate 100 MG Oral Capsule 05/12/2019 12:00:00 AM EST eCW1 ([facility]) Iron 325 (65 Fe) MG 05/05/2019 12:00:00 AM EST eCW1 ([facility]) Ondansetron 4 MG Oral Tablet [Zofran] 04/21/2019 12:00:00 AM EST eCW1 ([facility]) tramadol hydrochloride 50 MG Oral Tablet 04/14/2019 12:00:00 AM EST eCW1 ([facility]) Levothyroxine Sodium 0.025 MG Oral Tablet 03/29/2019 12:00:00 AM ES T eCW1 ([facility]) tramadol hydrochloride 50 MG Oral Tablet 02/17/2019 12:00:00 AM EST eCW1 ([facility]) Pen [place] 02/17/2019 12:00:00 AM EST e CW1 ([facility]) Blood Glucose Test - 02/17/2019 12:00:00 AM EST eCW1 ([facility]) Lancets - 02/17/2019 12:00:00 AM EST e CW1 ([facility])
[2020-03-31] MEDS ORDERED: GLYCOPYRROLATE INJ 0.2 MG/ML 2 ML VIAL As Ordered ONE (14:19)
[2020-03-31] MEDS ORDERED: propofoL 200 MG/20 ML VIAL As Ordered ONE (14:19)
[2020-03-31] MEDS ORDERED: LIDOCAINE 2% 100MG/5ML SDV (FOR ANES.) As Ordered ONE (14:19)
[2020-03-31] MEDS ORDERED: fentaNYL 100 MCG/2 ML INJECTION (J3010) As Ordered ONE (14:19)
--- NOTE | 2020-03-31 15:23 | ROOR ---
Patient Name: Hannah Vail Procedure Date: 03/31/2020 3:00 PM Date of : 1970 Age: 49 Room: [facility] Gender: Female Note Status: Finalized Procedure: Upper GI endoscopy Indications: Biliary stent removal, Pancreatitis Providers: Fercho SCHROEDER MD Referring MD: Oswaldo Anderson DO Requesting Provider: Medicines: Monitored Anesthesia Care Complications: No immediate complications. Procedure: Pre-Anesthesia Assessment: - The heart rate, respiratory rate, oxygen saturations, blood pressure, adequacy of pulmonary ventilation, and response to care were monitored throughout the procedure. The Endoscope was introduced through the mouth, and advanced to the second part of duodenum. The upper GI endoscopy was accomplished without difficulty. The patient tolerated the procedure well. Findings: The examined esophagus was normal. Scattered mild inflammation was found in the gastric antrum. Biopsies were taken with a cold forceps for histology. A previously placed plastic stent was seen in the area of the papilla. Stent removal was accomplished with a rat-toothed forceps. The examined duodenum was normal. Impression: - Normal esophagus. - Gastritis. Biopsied. - Plastic stent in the duodenum. Removed. - Normal examined duodenum. Recommendation: - Telephone endoscopist for pathology results in 2 weeks. Procedure Code(s): --- Professional --- 22642, Esophagogastroduodenoscopy, flexible, transoral; with removal of foreign body(s) 60647, Esophagogastroduodenoscopy, flexible, transoral; with biopsy, single or multiple Diagnosis Code(s): --- Professional --- K85.90, Acute pancreatitis without necrosis or infection, unspecified K29.70, Gastritis, unspecified, without bleeding Z46.59, Encounter for fitting and adjustment of other gastrointestinal appliance and device CPT copyright 2019 [employer]. All rights reserved. The codes documented in this report are preliminary and upon valet runner review may be revised to meet current compliance requirements. Fercho Schroeder MD Fercho SCHROEDER MD 03/31/2020 3:22:30 PM Electronically signed by Fercho SCHROEDER MD Number of Addenda: 0 Note Initiated On: 03/31/2020 3:00 PM Estimated Blood Loss: Estimated blood loss: none.
[2020-03-31 15:37] VITALS: BP 142/69
== END 2020-03-31 15:38 | disposition home or self-care (01) ==
LOC: M OPP 13:23
PROVIDERS: ATTEND Internal Medicine Gastroenterology
DX: Z46.59 Encounter for fitting and adjustment of other gastrointestinal appliance and device (principal); K85.90 Acute pancreatitis without necrosis or infection, unspecified; K29.70 Gastritis, unspecified, without bleeding; D50.9 Iron deficiency anemia, unspecified; F41.9 Anxiety disorder, unspecified; J44.9 Chronic obstructive pulmonary disease, unspecified; F32.9 Major depressive disorder, single episode, unspecified; E11.9 Type 2 diabetes mellitus without complications; I10 Essential (primary) hypertension; E78.5 Hyperlipidemia, unspecified; E03.9 Hypothyroidism, unspecified; F43.10 Post-traumatic stress disorder, unspecified; R12 Heartburn; G47.30 Sleep apnea, unspecified; M79.7 Fibromyalgia; Z86.14 Personal history of Methicillin resistant Staphylococcus aureus infection; Z87.891 Personal history of nicotine dependence; Z79.01 Long term (current) use of anticoagulants; Z79.4 Long term (current) use of insulin; Z79.899 Other long term (current) drug therapy; Z82.49 Family history of ischemic heart disease and other diseases of the circulatory system; Z83.3 Family history of diabetes mellitus; Z80.8 Family history of malignant neoplasm of other organs or systems
CPT/HCPCS: 43239; 43247; 88305; J3010

== ENCOUNTER 2020-04-20 18:37 | Emergency (ER) | payer OTHER ==
[~2020-04-20] VITALS: Ht 162.6 cm; Wt 89.2 kg
[~2020-04-20 18:37] MED LIST changes: +HYDR-3490 PO; -HYDR25TAB PO; +LISI10TA22 PO; -LISI10TA4 PO; +MONT10TA10 PO; -MONT5TAB2 PO; -NS 1,000 ML IV ONE
--- OUTSIDE RECORDS SUMMARY | 2020-04-20 18:44 | CCD | Continuity of Care Document ---
Author Author Hannah SCHROEDER MD Organization Unknown Address [address] [place] [address] Phone [phone] Care Team Providers Care Field Software Engineer Name Role Phone Oswaldo Anderson D.O. AUTM [phone] Problems Active Problems Provider Date Difficulty breathing NATALYA Garcia Onset: 08/27/2017 Disturbance of consciousness NATALYA Garcia Onset: 08/15 Ex-smoker NATALYA Garcia Onset: 08/27/2017 Asthma without status asthmaticus NATALYA Garcia Onset: 2017 Obstructive sleep apnea syndrome NATALYA [...] as directed per sliding scale Unknown Ipratropium [place]/Albuterol Sulfate 0.5-2.5(3)mg/3ML Solution 1 vial via neb [...] lb BMI (Body Mass Index) 35.5 kg/m2 [place] Body Weight 120 lb Weight 93.895 kg BSA (Body Surface Area) 1.99 m2 12/07/2019 3:35pm BP Systolic 154 mmHg BP Diastolic 94 mmHg Respiratory Rate 18 /min Body Temperature 97.6 F Results Test Acquired Date Facility Test Result H/L Range Note Laboratory test finding 03/31/2020 [facility] Main Lab [address] [place], [place] [id number] [phone] Bedside Glucose 190 mg/dL High 70-105 CBC With Differential 03/29/2020 [facility] Main Lab [address] [place], [place] [id number] [phone] White Blood Count 7.7 10 Normal 4.0-10.0 Red Blood Count 4.02 10 Normal 4.00-5.40 Hemoglobin 13.2 g/dL Normal 12.0-15.5 Hematocrit 41.3 % Normal 36.0-47.0 Mean Corpuscular Volume 102.7 fl High 80.0-96.0 Mean Corpuscular Hemoglobin 32.8 pg Normal 27.0-33.0 Mean Corpuscular HGB Conc 32.0 g/dL Normal 32.0-36.5 Red Cell Distribution Width 12.8 % Normal 11.5-14.5 Platelet Count, Automated 248 10 Normal 150-450 Neutrophils % 45.3 % Normal 36.0-66.0 Lymph % 41.2 % Normal 24.0-44.0 [place] % 8.2 % High 0.0-5.0 Eos % 3.8 % High 0.0-3.0 Baso % 1.0 % Normal 0.0-1.0 Immature Granulocyte % 0.5 % Normal 0-3.0 Nucleated Red Blood Cell % 0.0 % Normal 0-0 Neutrophils # 3.5 10 Normal 1.5-8.5 Lymph # 3.2 10 Normal 1.5-5.0 [place] # 0.6 10 Normal 0.0-0.8 Eos # 0.3 10 Normal 0.0-0.5 Baso # 0.1 10 Normal 0.0-0.2 Comprehensive Metabolic Profil 03/29/2020 [facility] Main Lab [address] [place] [address] [phone] Glucose, Fasting 403 mg/dL Critical high 70-100 Blood Urea Nitrogen 15 mg/dL Normal 7-18 Creatinine For GFR 0.85 mg/dL Normal 0.55-1.30 Glomerular Filtration Rate > 60.0 Normal >58 1 Sodium Level 134 mEq/L Low 136-145 Potassium Serum 3.9 mEq/L Normal 3.5-5.1 Chloride Level 104 mEq/L Normal 98-107 Carbon Dioxide Level 24 mEq/L Normal 21-32 Anion Gap 6 mEq/L Low 8-16 Calcium Level 9.0 mg/dL Normal 8.5-10.1 Ast/Sgot 48 U/L High 7-37 Alt/SGPT 161 U/L High 12-78 Alkaline Phosphatase 213 U/L High 45-117 Bilirubin,Total 0.3 mg/dL Normal 0.2-1.0 Total Protein 7.3 GM/DL Normal 6.4-8.2 Albumin 3.7 GM/DL Normal 3.2-5.2 Albumin/Globulin Ratio 1.0 Low 1.2-2.2 Prothrombin Time/Inr 03/29/2020 [facility] enter Main Lab [address] [place] [address] [phone] Prothrombin Time 13.8 seconds Normal 12.5-14.3 Inr 1.04 Normal 2 Laboratory test finding 03/29/2020 [facility] Main Lab [address] [place] [address] [phone] Alpha Fetoprotein Tumor Quant 1.3 NG/ML Normal <8 .1 3 Anti-Mitochondrial Antibody <pending> Amylase & Lipase 03/29/2020 [facility] Main Lab [address] [place] [address] [phone] Amylase 41 U/L Normal 25-115 Lipase 287 U/L Normal 73-393 Laboratory test finding 03/29/2020 [facility] Main Lab [address] [place] [address] [phone] Igg Subclass 4 <pending> Alpha 1 Antitrypsin <pending> 1 Units are mL/min/1.73 m2 Chronic Kidney Disease Staging per NKF: Stage I & II GFR >=60 Normal to Mildly Decreased Stage III GFR 30-59 Moderately Decreased Stage IV GFR 15-29 Severely Decreased Stage V GFR <15 Very Little GFR Left ESRD GFR <15 on GEAR GENERATOR SET UP OPERATOR 2 THERAPUTIC HUMAN INR VALUES INDICATIONS NORMAL RANGES PROPHYLAXIS/TREATMENT OF: VENOUS THROMBOSIS 2.0-3.0 PULMONARY EMBOLISM 2.0-3.0 PREVENTION OF SYSTEMIC EMBOLISM FROM: TISSUE HEART VALVES 2.0-3.0 ACUTE MYOCARDIAL INFARCTION 2.0-3.0 VALVULAR HEART DISEASE 2.0-3.0 ATRIAL FIBRILLATION 2.0-3.0 MECHANICAL VALVES(HIGH RISK) 2.5-3.5 RECURRENT MYOCARDIAL INFARCTION 2.5-3.5 3 THE AFP ASSAY IS PERFORMED O N THE iCrumzAUR BY CHEMILUMINESCENCE AND SHOULD NOT BE COMPARED INTERCHANGEABLY WITH OTHER METHODS. IT SHOULD NOT BE USED ALONE A SCREENING TEST OR DIAGNOSIS FOR THE PRESENCE OR ABSENCE OF MALIGNANT DISEASE. THESE RESULTS ARE NOT INTERPRETABLE IN FEMALES. PREDICTIONS OF DISEASE RECURRENCE SHOULD NOT BE BASED SOLELY ON VALUES OBTAINED FROM SERIAL PATIENT SERUM VALUES. 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 had mildly dilated biliary tree, for which she had ERCP. ERCP showed no obstructions, no stones--normal. I placed a biliary stent to see if pancreatitis episodes would stop (R/O microlithiasis/SOD). I did not perform sphincterotomy.She is back after 4 month Hiatus in [facility]. Has had recurrent pancreatitis attacks while in [facility]. (stent is not preventing pancreatitis). Pt here to pull stent.Other labs showed elevated AMA. her LFT are abnormal. Jarett to be started for presumed PBC. (pt on Eliquis)She has A1At deficit as well. * Recommendations:* 1) will remove biliary stent via EGD luis manuel (does not need to stop eliquis) 2) Will refer to [facility] for further input in her management/diagnosis of recurrent pancreatitis episodes Functional Status Description No Information Available Mental Status Mental Condition Comment Date Status Cognitive ability not impaired A ctive Referrals Refer to Reason for Referral [place] [id number] Scheduled 03/31/2020 [facility], Gastroenterology [address], [address] [place] [address] [phone]
--- OUTSIDE RECORDS SUMMARY | 2020-04-20 18:44 | CCD ---
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 Active 3 7595183 Problem Migraine without status migr ainosus, not intractable, unspecified migraine type G43.909 Active 06366244 Problem Tension headache G44.209 Active 608939728 Problem 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 706705003 Problem Nightmares REM-sleep type F51.5 Active 204968 009 Problem Severe persistent asthma, unspecified whether complicated J45.50 Active 714963197 Problem PTSD (post-traumatic stress disorder) F43.10 Ac tive 06545852 Problem Bilateral low back pain with right-sided sciatica, unspecified chronicity M54.41 Active 972977142 Problem Insomnia, unspecified type G47.00 Active 84351 2000 Problem WANDY (obstructive sleep apnea) G47.33 Active 78 243126 Problem Arm paresthesia, left R20.2 Active 31311604 Problem Sinusitis, unspecified chronicity, unspecified location J32.9 Active 79025539 Problem Hyperlipidemia, unspecified hyperlipidemia type E7 8.5 Active 79060894 Problem Port-a-cath in place Z95.828 Active 930591747 Problem Psoriasis L40.9 Active 7230956 Problem Leukocytosis, unspecified type D72.829 Active 1 91592247 Problem Pulmonary embolism, unspecif ied chronicity, unspecified pulmonary embolism type, unspecified whether acute cor pulmonale present I 26.99 Active 53004813 Problem Pain in thoracic spine M54.6 Active 678742941 348294 Problem Other iron deficiency anemia D50.8 Active 875 80354 Problem Type 2 diabetes mellitus without complications E11 .9 Active 74694949 Problem Exacerbation of asthma, unsp ecified asthma severity, unspecified whether persistent J45.901 Active 604890143 Problem Hypothyroidism, unspecified type E03.9 Active 54573069 Problem 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 Active 810590258 Problem Other chronic pain G89.29 Active 68587942 Problem Anxiety disorder, unspecified type F41.9 Activ e 390879286 Problem Post-traumatic stress disorder, unspecified F43.10 Active 97792538 Problem Major depressive disorder, recurrent, mild F33.0 Active 541153575 ALLERGIES Allergen (clinical drug ingredient) Drug/Non Drug Allergy do cumented on EMR Reaction Allergy Type Onset Date Status PredniSONE Hives Drug Allergy Active metformin Metformin HCl(ND Code:[address]-06) kidneys Drug Vijay rgy Active meclizine Meclizine HCl(ND Code:[address]-19) Anaphylaxis Drug All ergy Active ENCOUNTERS from 1970 to 2020-04-05 Encounter Location Date Provider Diagnosis [address] [address] Mar, Oswaldo Anderson Type 2 diabetes mellitus without complic ations E11.9 IMMUNIZATIONS Vaccine Route Administration Date Status Depo-Medrol 80mg (Methylprednisolone Acetate) IM Intramuscular A 2018 Administered Toradol 30mg/1mL (Ketorolac) IM Intramuscular Feb 16, 2018 Ad ministered Influenza (18 yrs & older) Flublok IM Intramuscular Dec 22, 2017 Administered Toradol 60mg/2mL (Ketorolac) IM Intramuscular July 14, 2017 Ad ministered Depo-Medrol 80mg (Methylprednisolone Acetate) IM Intramuscular M arch 2017 Administered Depo-Medrol 40mg (Methylpredisolone Acetate) IM Intramuscular [facility] 2017 Administered Pneumococcal Adult 0.5mL (Pneumovax 23) [...] Education Language: Question Answer Notes Languages spoken: Latvian Advent: Question Answer Notes Advent No restoration beliefs that would impact health [...] Notes Start Da te End Date Status Trulicity 0.75 MG/0.5ML as directed Subcutaneous weekly for 28 Not-Taking Topiramate 50 MG 1 tablet Orally Twice a day for 90 Active PrednisoLONE 15 MG/5ML 15 ml Orally as directed tapeing dose Apr, Not-Taking Gabapentin 600 MG 1 tablet Orally tid for 90 Active Ventolin HFA 108 (90 Base) MCG/ACT 2 puffs as needed I nhalation every 4 hrs for 30 days Active Protonix 40 MG 1 tablet Orally twice a day for 90 Active Symbicort 160-4.5 MCG/ACT 2 puffs Inhalation Twice a day for 30 days Active Lancets - as directed bid for 30 days Active Blood Glucose Test - as directed In Vitro bid for 30 days Active Diflucan 150 MG 1 tablet Orally Once for 1 days May, Not-Taking Docusate Sodium 100 MG 1 capsule as needed Orally Once a day for 30 Active Steglatro 5 MG 1 tablet Orally Once a day for 90 days 2020 Active Cholecalciferol 1000 UNIT 1 capsule Orally Once a day for 30 days Active Zofran 4 MG 1 tablet Orally every 6 hours as needed for 10 days Apr, Not-Taking Cetirizine HCl 10 MG 1 tablet Orally Once a day for 30 Not-Taking Triamcinolone Acetonide 0.1 % 1 application to affecte d area Externally Twice a day to right elbow for 7 days Mar, Ac tive Ketorolac Tromethamine 10 MG 1 tablet with food or mil k as needed Orally every 6 hrs for 5 day(s) Not-Taking Lisinopril 10 MG 1 tablet Orally Once a day for 90 Active Glucometer as directed Daily Dx: E11.9 for 999 days Dec Active Eliquis 5 MG 1 tab Orally once daily Active Doxycycline Monohydrate 100 MG 1 capsule Orally bid for 7 days Apr, Not-Taking Artificial Tear 1 gtt Ophthalmic twice daily as needed for dry eyes Active Probiotic - 1 capsule Orally before bedtime Not-Taking Iron 325 (65 Fe) MG 1 tablet Orally Once a day for 90 Active Sumatriptan Succinate 50 MG 1 tablet as needed Orally Twice a day for migraine Active Hydrocodone-Acetaminophen 5-325 MG 1 tablet as needed Orally every 6 hrs for severe pain for 28 days Mar, Active Levothyroxine Sodium 25 MCG 1 tablet in the morning on an empty stomach Orally Once a day for 90 Active BusPIRone HCl 30 MG 1 tablet orally twice daily for 90 days Active Tamiflu 75 MG 1 capsule Orally Daily for 7 days Mar, Active AmLODIPine Besylate 10 MG 1 tablet Orally Once a day for 30 day(s) Active [place] as directed bid for 30 days Active Prazosin HCl 1 MG 3 capsule Orally before bedtime for 30 days Apr, Not-Taking Humulin R 100 UNIT/ML per sliding scale Injection QID before meals and before bedtime PRN; MDD: 100 units May, Acti ve Tizanidine HCl 4 MG 1 tablet as needed Orally Three times a day for 3 0 Active Lancets - as directed BID Dx: E11.9 for 30 days Dec, Active Ipratropium-Albuterol 0.5-2.5 (3) MG/3ML 3 ml as neede d Inhalation every 4 hours for SOB May, Active Singulair 10 MG 1 tablet Orally Once a day for 90 Active Venlafaxine HCl ER 150 MG Take 1 capsule every morning for 90 Active Polyethylene Glycol - as directed dissolve 17 gram s of powder in luquid and drink once daily for constipation May, Active Tramadol HCl 50 MG 1 tablet as needed Orally Once a day for 5 da ys 30 Aug, 2019 Not-Taking [place] 31G X 5 MM as directed Daily for 30 days 2020 Active Basaglar KwikPen 100 UNIT/ML 80 units subcutaneously twice daily for 30 days Active PROCEDURES No Information RESULTS No Results REASON FOR VISIT PA Jardiance 10mg tablets MEDICAL (GENERAL) HISTORY Type Description Date Medical [...] 10/2018 Surgical History stent in pancreas 12/09/2019 Surgical History removed stent 03/31/2020 Hospitalization History COPD/ Asthma 06/2017 Hospitalization History [...] STATUS No Information ASSESSMENTS Encounter Date Diagnosis Assessment Notes Treatment Notes Treatm ent Clinical Notes Mar, Type 2 diabetes mellitus without complications ( ICD-10 - E11.9) PLAN OF TREATMENT Medication Medication Name Sig Start Date Stop Date [place] 31G X 5 MM as directed Daily for 30 days Mar, Basaglar KwikPen 100 UNIT/ML 80 units subcutaneously twice daily for 30 days Tamiflu 75 MG 1 capsule Orally Daily for 7 days Mar, Hydrocodone-Acetaminophen 5-325 MG 1 tablet as needed Orally every 6 hrs for severe pain for 28 days Mar, Cholecalciferol 1000 UNIT 1 capsule Orally Once a day for 30 day s Steglatro 5 MG 1 tablet Orally Once a day for 90 days Mar, 2 021 Insurance Providers Payer Name Payer Address Payer Phone Insured Name Patient Relati onship to Insured Coverage Start Date Coverage End Date [facility] [employer] CLAIMS [address]PT [address] [facility] [phone] PATY CRYSTAL
--- OUTSIDE RECORDS SUMMARY | 2020-04-20 18:45 | CCD ---
Author Author [facility] Organization [facility] Address Unknown Phone Unavailable Care Team Providers Care Accounting Director Name Role Phone PETROFF, JOSE PA Unavailable [...] REINDL, DES CHENEY Unavailable Unavailable REINDL, DES MD Unavailable Unavailable REINDL, DES CHENEY Unavailable Unavailable REINDL, DES CHENEY Unavailable Unavailable REINDL, DES MD Unavailable Unavailable REINDL, DES MD Unavailable Unavailable REINDL, DES MD Unavailable Unavailable REINDL, DES MD Unavailable Unavailable REINDL, DES CHENEY Unavailable Unavailable [...] is protected by Article 27-F of the [facility] Public Health law. If you continue you may have access to information: Regarding HIV / AIDS; Provided by facilities licensed or operated by the [facility] Office of Mental Health; or Provided by the [facility] Office for People With Developmental Disabilities. If such information is present, then the following [facility] mandated warning applies: This information has [...] law may result in a fine or long-term sentence or both. A general authorization for the release of medical or other information is NOT sufficient authorization for further disc losure. Allergies and Adverse Reactions Type Description Substance Reaction Status Data Source(s ) Drug allergy Meclizine HCl Meclizine Anaphylaxis Active eCW1 ([facility]) metformin Metformin HCl Metformin kidneys Active eCW1 ([facility]) PredniSONE PredniSONE PredniSONE Hives Active eCW1 ([facility]) PredniSONE PredniSONE PredniSONE Hives Active eCW1 ([facility]) PredniSONE PredniSONE PredniSONE Hives Active eCW1 ([facility]) PredniSONE PredniSONE PredniSONE Hives Active eCW1 ([facility]) PredniSONE PredniSONE PredniSONE Hives Active eCW1 ([facility]) PredniSONE PredniSONE Prednisone 10 MG Oral Tablet Hives [facility] PredniSONE PredniSONE Prednisone 10 MG Oral Tablet Hives Active [facility] Family History Family Member Name Family Member Gender Family Member Status Date o f Status Description Data Source(s) Unknown Unknown Problem MEDENT ([facility], ) Encounters Encounter Providers Location Date Indications Data Source(s ) Unknown [address] [facility] [place] [address] 04/03/2020 12:00:00 AM EST eCW1 ([facility]) Outpatient Attender: DES Matthew/José Antonio/Karl/Masha gilliam 03/29/2020 08:00:00 AM EST MEDENT ([facility] ) Unknown [address] [facility] [place] [address] 02/04/2020 12:00:00 AM EST eCW1 ([facility]) Unknown [address] [facility] [place] [address] 02/04/2020 12:00:00 AM EST eCW1 ([facility]) Unknown [address] [facility] [place] [address] 02/03/2020 12:00:00 AM EST eCW1 ([facility]) Unknown [address] [facility] [place] [address] 02/03/2020 12:00:00 AM EST eCW1 ([facility]) Unknown [address] [facility] [place] [address] 01/10/2020 12:00:00 AM EDT eCW1 ([facility]) Unknown [address] [facility] [place] [address] 12/29/2019 12:00:00 AM EDT eCW1 ([facility]) Outpatient [address] [address] 12/16/2019 12:00:00 AM EDT [facility]) Outpatient Attender: Lisa HARO 08/30/2019 12:55:01 P M EDT [facility] Outpatient Referrer: Bjorn Tapia MD 08/17/2019 05:50:00 AM EDT [facility] [address] [place] [address] 08/11/2019 12:00:00 AM EDT eCW1 ([facility]) Outpatient Referrer: Bjorn Tapia MD 08/05/2019 06:01:00 AM EDT [facility] [address] [place] [address] 08/05/2019 12:00:00 AM EDT eCW1 ([facility]) Outpatient Attender: Lisa HARO 08/03/2019 11:33:01 A M EDT [facility] [address] [place] [address] 08/02/2019 12:00:00 AM EDT eCW1 ([facility]) [facility] [address] [place] [address] 07/25/2019 12:00:00 AM EDT eCW1 ([facility]) ([facility]) [facility] Scheduled Visit [address] [place] [address] 07/22/2019 12:00:00 AM EDT eCW1 ([facility]) Outpatient Referrer: Bjorn Tapia MD 07/20/2019 05:35:00 AM EDT [facility] [address] [place] [address] 07/08/2019 12:00:00 AM EDT eCW1 [facility] [address] [facility] [address] 06/30/2019 12:00:00 AM EDT eCW1 ([facility]) [address] [address] 06/25/2019 12:00:00 AM EDT eCW1 ([facility]) [address] [address] 06/21/2019 12:00:00 AM EDT eCW1 ([facility]) Outpatient Attender: Zohaib Gagnon DAdmitter: Zohaib Amador MDReferrer: Zohaib Amador MD 06/10/2019 12:00:00 AM EDT Other fatigue [facility] Other fatigue [address] [address] 06/09/2019 12:00:00 AM EDT eCW1 ([facility]) Outpatient Attender: Lisa Red DDS [facility] 06/07/2019 09:16:00 A M EDT [address] [address] 05/28/2019 12:00:00 AM EDT eCW1 ([facility]) [address] [address] 05/25/2019 12:00:00 AM EDT eCW1 ([facility]) Outpatient Referrer: Bjorn Tapia MD 05/24/2019 12:29:00 PM EDT [facility] [address] [address] 05/24/2019 12:00:00 AM EDT eCW1 ([facility]) Outpatient Referrer: Bjorn Tapia MD 05/20/2019 03:10:00 PM EST [facility] [address] [address] 05/19/2019 12:00:00 AM EST [facility]1 [facility] [address] [address] 05/19/2019 12:00:00 AM EST eCW1 ([facility]) [facility] [place] [address] [address] 05/12/2019 12:00:00 AM EST eCW1 ([facility]) [facility] [address] [place] [address] 05/07/2019 12:00:00 AM EST eCW1 ([facility]) [facility] [place] [address] [address] 05/05/2019 12:00:00 AM EST eCW1 ([facility]) [facility] [address] [address] 04/29/2019 12:00:00 AM EST eCW1 ([facility]) [facility] [address] [address] 04/21/2019 12:00:00 AM EST eCW1 ([facility]) [facility] [address] [address] 04/21/2019 12:00:00 AM EST eCW1 ([facility]) [facility] [address] [address] 04/14/2019 12:00:00 AM EST eCW1 ([facility]) Outpatient Attender: Lisa BOWMAN 04/07/2019 02:57:00 P M [facility] Outpatient Attender: Lisa BOWMAN 04/07/2019 01:01:00 P M [facility] [address] [address] 04/06/2019 12:00:00 AM EST eCW1 ([facility]) Outpatient Attender: Lisa BOWMAN 04/01/2019 12:37:01 P M [facility] Outpatient Attender: Lisa BOWMAN 04/01/2019 11:51:00 A M [facility] Outpatient Attender: [facility] 04/01/2019 11:49:00 AM [facility] Outpatient Attender: [facility] 04/01/2019 11:48:00 AM [facility] Outpatient Attender: [facility] 04/01/2019 11:44:59 AM [facility] Outpatient Attender: [facility] 04/01/2019 10:41:00 AM [facility] Outpatient Attender: [facility] 04/01/2019 10:39:02 AM [facility] Outpatient Attender: [facility] 04/01/2019 10:38:[address] [address] 03/29/2019 12:00:00 AM EST eCW1 ([facility]) Outpatient Attender: [facility] 03/04/2019 09:01:08 PM [facility] Emergency Attender: JOSE HOANG 2018 04:26:00 PM EDT - 01/09/2019 04:48:00 PM [facility] Patient discharged. Medications Medication Brand Name Start Date Product Form Dose Route Admi nistrative Instructions Pharmacy Instructions Status Indications Reaction Description Data Source(s) Steglatro 5 MG Steglatro 5 MG 04/04/2020 12:00:00 AM EST 1.0 {ta blet} active Steglatro 5 MG [facility] Oseltamivir 75 MG Oral Capsule [Tamiflu] Tamiflu 75 MG Tamif jaron 75 MG 04/03/2020 12:00:00 AM EST 1.0 {capsule} active T amiflu 75 MG eCW1 [facility]) Acetaminophen 325 MG / Hydrocodone Yoli trate 5 MG Oral Tablet Hydrocodone- Acetaminophen 5-325 MG Hydrocodone-Acetaminophen 5-325 MG 04/03/2020 12:00:00 AM EST 1.0 {tablet_as_needed} active Hydrocodone-Acetaminophen 5-325 MG eCW1 [facility]) [place] 31G X 5 MM [place] 31G X 5 MM 04/03/2020 12:00:[address] active [place] 31G X 5 MM eC W1 ([facility]) Ursodiol 500 MG Oral Tablet Ursodiol 03/29/2020 12:00:00 AM EST ORAL active MEDENT ([facility] ) Glucometer UNK 01/10/2020 12:00:00 AM EDT active Glucometer eCW1 ([facility]) Lancets - Lancets - 01/10/2020 12:00:00 AM EDT [place] Lanc[place] - eCW1 ([facility]) Lancets - Lancets - 01/10/2020 12:00:00 AM EDT [place] Lanc[place] - eCW1 ([facility]) Lancets - Lancets - 01/10/2020 12:00:00 AM EDT [place] Lanc[place] - eCW1 ([facility]) Glucometer UNK 01/10/2020 12:00:00 AM EDT active Glucometer eCW1 ([facility]) Lancets - Lancets - 01/10/2020 12:00:00 AM EDT [place] Lanc[place] - eCW1 ([facility]) Lancets - Lancets - 01/10/2020 12:00:00 AM EDT [place] Lanc[place] - eCW1 ([facility]) Glucometer UNK 01/10/2020 12:00:00 AM EDT active Glucometer eCW1 ([facility]) Glucometer UNK 01/10/2020 12:00:00 AM EDT active Glucometer eCW1 ([facility]) Lancets - Lancets - 01/10/2020 12:00:00 AM EDT [place] Lanc[place] - eCW1 ([facility]) Glucometer UNK 01/10/2020 12:00:00 AM EDT active Glucometer eCW1 ([facility]) Glucometer UNK 01/10/2020 12:00:00 AM EDT active Glucometer eCW1 ([facility]) Glucometer UNK 01/10/2020 12:00:00 AM EDT active Glucometer eCW1 ([facility]) Lancets - Lancets - 01/10/2020 12:00:00 AM EDT [place] Denisroberto - eCW1 ([facility]) Acetaminophen 325 MG / Hydrocodone Yoli trate 5 MG Oral Tablet Hydrocodone- Acetaminophen 5-325 MG Hydrocodone-Acetaminophen 5-325 MG 12/29/2019 12:00:00 AM EDT 1.0 {tablet_as_needed} active Hydrocodone-Acetaminophen 5-325 MG eCW1 ([facility]) Acetaminophen 325 MG / Hydrocodone Yoli trate 5 MG Oral Tablet Hydrocodone- Acetaminophen 5-325 MG Hydrocodone-Acetaminophen 5-325 MG 12/29/2019 12:00:00 AM EDT 1.0 {tablet_as_needed} active Hydrocodone-Acetaminophen 5-325 MG eCW1 ([facility]) Acetaminophen 325 MG / Hydrocodone Yoli trate 5 MG Oral Tablet Hydrocodone- Acetaminophen 5-325 MG Hydrocodone-Acetaminophen 5-325 MG 12/29/2019 12:00:00 AM EDT 1.0 {tablet_as_needed} active Hydrocodone-Acetaminophen 5-325 MG eCW1 ([facility]) Acetaminophen 325 MG / Hydrocodone Yoli trate 5 MG Oral Tablet Hydrocodone- Acetaminophen 5-325 MG Hydrocodone-Acetaminophen 5-325 MG 12/29/2019 12:00:00 AM EDT 1.0 {tablet_as_needed} active Hydrocodone-Acetaminophen 5-325 MG eCW1 ([facility]) Acetaminophen 325 MG / Hydrocodone Yoli trate 5 MG Oral Tablet Hydrocodone- Acetaminophen 5-325 MG Hydrocodone-Acetaminophen 5-325 MG 12/29/2019 12:00:00 AM EDT 1.0 {tablet_as_needed} active Hydrocodone-Acetaminophen 5-325 MG eCW1 ([facility]) Acetaminophen 325 MG / Hydrocodone Yoli trate 5 MG Oral Tablet Hydrocodone- Acetaminophen 5-325 MG Hydrocodone-Acetaminophen 5-325 MG 12/29/2019 12:00:00 AM EDT 1.0 {tablet_as_needed} active Hydrocodone-Acetaminophen 5-325 MG eCW1 ([facility]) Acetaminophen 325 MG / Hydrocodone Yoli trate 5 MG Oral Tablet Hydrocodone- Acetaminophen 5-325 MG Hydrocodone-Acetaminophen 5-325 MG 12/29/2019 12:00:00 AM EDT 1.0 {tablet_as_needed} active Hydrocodone-Acetaminophen 5-325 MG eCW1 ([facility]) tramadol hydrochloride 50 MG Oral Tablet Tramadol HCL 09/16/2019 12:00:00 AM EDT active MEDENT ([facility] ) tramadol hydrochloride 50 MG Oral Tablet Tramadol HCl 50 MG Tramadol HCl 50 MG 09/14/2019 12:00:00 AM EDT 1.0 {tablet_as_needed} active Tramadol HCl 50 MG eCW1 ([facility]) tramadol hydrochloride 50 MG Oral Tablet Tramadol HCl 50 MG Tramadol HCl 50 MG 09/14/2019 12:00:00 AM EDT 1.0 {tablet_as_needed} active Tramadol HCl 50 MG eCW1 ([facility]) tramadol hydrochloride 50 MG Oral Tablet Tramadol HCl 50 MG Tramadol HCl 50 MG 09/14/2019 12:00:00 AM EDT 1.0 {tablet_as_needed} active Tramadol HCl 50 MG eCW1 ([facility]) tramadol hydrochloride 50 MG Oral Tablet Tramadol HCl 50 MG Tramadol HCl 50 MG 09/14/2019 12:00:00 AM EDT 1.0 {tablet_as_needed} suspended Tramadol HCl 50 MG eCW1 ([facility]) tramadol hydrochloride 50 MG Oral Tablet Tramadol HCl 50 MG Tramadol HCl 50 MG 09/14/2019 12:00:00 AM EDT 1.0 {tablet_as_needed} active Tramadol HCl 50 MG eCW1 ([facility]) tramadol hydrochloride 50 MG Oral Tablet Tramadol HCl 50 MG Tramadol HCl 50 MG 09/14/2019 12:00:00 AM EDT 1.0 {tablet_as_needed} active Tramadol HCl 50 MG eCW1 ([facility]) tramadol hydrochloride 50 MG Oral Tablet Tramadol HCl 50 MG Tramadol HCl 50 MG 09/14/2019 12:00:00 AM EDT 1.0 {tablet_as_needed} active Tramadol HCl 50 MG eCW1 ([facility]) tramadol hydrochloride 50 MG Oral Tablet Tramadol HCl 50 MG Tramadol HCl 50 MG 09/14/2019 12:00:00 AM EDT 1.0 {tablet_as_needed} active Tramadol HCl 50 MG eCW1 ([facility]) Fluconazole 150 MG Oral Tablet [Diflucan] Diflucan 150 MG Di flucan 150 MG 06/09/2019 12:00:00 AM EDT 1.0 {tablet} suspended Diflucan 150 MG eCW1 ([facility]) Fluconazole 150 MG Oral Tablet [Diflucan] Diflucan 150 MG Di flucan 150 MG 06/09/2019 12:00:00 AM EDT 1.0 {tablet} suspended Diflucan 150 MG eCW1 ([facility]) Fluconazole 150 MG Oral Tablet [Diflucan] Diflucan 150 MG Di flucan 150 MG 06/09/2019 12:00:00 AM EDT suspended 1 tablet eCW1 ([facility]) Fluconazole 150 MG Oral Tablet [Diflucan] Diflucan 150 MG Di flucan 150 MG 06/09/2019 12:00:00 AM EDT 1.0 {tablet} suspended Diflucan 150 MG eCW1 ([facility]) Fluconazole 150 MG Oral Tablet [Diflucan] Diflucan 150 MG Di flucan 150 MG 06/09/2019 12:00:00 AM EDT 1.0 {tablet} suspended Diflucan 150 MG eCW1 ([facility]) Fluconazole 150 MG Oral Tablet [Diflucan] Diflucan 150 MG Di flucan 150 MG 06/09/2019 12:00:00 AM EDT 1.0 {tablet} suspended Diflucan 150 MG eCW1 ([facility]) Fluconazole 150 MG Oral Tablet [Diflucan] Diflucan 150 MG Di flucan 150 MG 06/09/2019 12:00:00 AM EDT 1.0 {tablet} suspended Diflucan 150 MG eCW1 ([facility]) Fluconazole 150 MG Oral Tablet [Diflucan] Diflucan 150 MG Di flucan 150 MG 06/09/2019 12:00:00 AM EDT 1.0 {tablet} suspended Diflucan 150 MG eCW1 ([facility]) Fluconazole 150 MG Oral Tablet [Diflucan] Diflucan 150 MG Di flucan 150 MG 06/09/2019 12:00:00 AM EDT active 1 tablet eCW1 ([facility]) Fluconazole 150 MG Oral Tablet [Diflucan] Diflucan 150 MG Di flucan 150 MG 06/09/2019 12:00:00 AM EDT 1.0 {tablet} suspended Diflucan 150 MG eCW1 ([facility]) Fluconazole 150 MG Oral Tablet [Diflucan] Diflucan 150 MG Di flucan 150 MG 06/09/2019 12:00:00 AM EDT 1.0 {tablet} suspended Diflucan 150 MG eCW1 ([facility]) Polyethylene Glycol - Polyethylene Glycol - 05/21/2019 12:00:00 AM EST active Polyethylene Glycol - eCW1 ( [facility]) Polyethylene Glycol - Polyethylene Glycol - 05/21/2019 12:00:00 AM EST active as directed eCW1 ([facility]) Albuterol 0.833 MG/ML / Ipratropium Brom clotilde 0.167 MG/ML Inhalant Solution Ipratropium-Albuterol 0.5-2.5 (3) MG/3ML Ipratropium-Albuterol 0.5-2.5 (3) MG/3ML 05/21/2019 12:00:00 AM EST active 3 ml as needed eCW1 ([facility]) Albuterol 0.833 MG/ML / Ipratropium Brom clotilde 0.167 MG/ML Inhalant Solution Ipratropium-Albuterol 0.5-2.5 (3) MG/3ML Ipratropium-Albuterol 0.5-2.5 (3) MG/3ML 05/21/2019 12:00:00 AM EST 3.0 {ml_as_needed} active Ipratropium-Albuterol 0.5-2.5 (3) MG/3ML eCW1 ([facility]) Polyethylene Glycol - Polyethylene Glycol - 05/21/2019 12:00:00 AM EST active Polyethylene Glycol - eCW1 ( [facility]) Albuterol 0.833 MG/ML / Ipratropium Brom clotilde 0.167 MG/ML Inhalant Solution Ipratropium-Albuterol 0.5-2.5 (3) MG/3ML Ipratropium-Albuterol 0.5-2.5 (3) MG/3ML 05/21/2019 12:00:00 AM EST 3.0 {ml_as_needed} active Ipratropium-Albuterol 0.5-2.5 (3) MG/3ML eCW1 ([facility]) Albuterol 0.833 MG/ML / Ipratropium Brom clotilde 0.167 MG/ML Inhalant Solution Ipratropium-Albuterol 0.5-2.5 (3) MG/3ML Ipratropium-Albuterol 0.5-2.5 (3) MG/3ML 05/21/2019 12:00:00 AM EST active 3 ml as needed eCW1 ([facility]) Polyethylene Glycol - Polyethylene Glycol - 05/21/2019 12:00:00 AM EST active Polyethylene Glycol - eCW1 ( [facility]) Albuterol 0.833 MG/ML / Ipratropium Brom clotilde 0.167 MG/ML Inhalant Solution Ipratropium-Albuterol 0.5-2.5 (3) MG/3ML Ipratropium-Albuterol 0.5-2.5 (3) MG/3ML 05/21/2019 12:00:00 AM EST 3.0 {ml_as_needed} active Ipratropium-Albuterol 0.5-2.5 (3) MG/3ML eCW1 ([facility]) Albuterol 0.833 MG/ML / Ipratropium Brom clotilde 0.167 MG/ML Inhalant Solution Ipratropium-Albuterol 0.5-2.5 (3) MG/3ML Ipratropium-Albuterol 0.5-2.5 (3) MG/3ML 05/21/2019 12:00:00 AM EST 3.0 {ml_as_needed} active Ipratropium-Albuterol 0.5-2.5 (3) MG/3ML eCW1 ([facility]) Polyethylene Glycol - Polyethylene Glycol - 05/21/2019 12:00:00 AM EST active as directed eCW1 ([facility]) Polyethylene Glycol - Polyethylene Glycol - 05/21/2019 12:00:00 AM EST active Polyethylene Glycol - eCW1 ( [facility]) Polyethylene Glycol - Polyethylene Glycol - 05/21/2019 12:00:00 AM EST active Polyethylene Glycol - eCW1 ( [facility]) Polyethylene Glycol - Polyethylene Glycol - 05/21/2019 12:00:00 AM EST active Polyethylene Glycol - eCW1 ( [facility]) Polyethylene Glycol - Polyethylene Glycol - 05/21/2019 12:00:00 AM EST active as directed eCW1 ([facility]) Albuterol 0.833 MG/ML / Ipratropium Brom clotilde 0.167 MG/ML Inhalant Solution Ipratropium-Albuterol 0.5-2.5 (3) MG/3ML Ipratropium-Albuterol 0.5-2.5 (3) MG/3ML 05/21/2019 12:00:00 AM EST 3.0 {ml_as_needed} active Ipratropium-Albuterol 0.5-2.5 (3) MG/3ML eCW1 ([facility]) Polyethylene Glycol - Polyethylene Glycol - 05/21/2019 12:00:00 AM EST active Polyethylene Glycol - eCW1 ( [facility]) Albuterol 0.833 MG/ML / Ipratropium Brom clotilde 0.167 MG/ML Inhalant Solution Ipratropium-Albuterol 0.5-2.5 (3) MG/3ML Ipratropium-Albuterol 0.5-2.5 (3) MG/3ML 05/21/2019 12:00:00 AM EST 3.0 {ml_as_needed} active Ipratropium-Albuterol 0.5-2.5 (3) MG/3ML eCW1 ([facility]) Polyethylene Glycol - Polyethylene Glycol - 05/21/2019 12:00:00 AM EST active Polyethylene Glycol - eCW1 ( [facility]) Albuterol 0.833 MG/ML / Ipratropium Brom clotilde 0.167 MG/ML Inhalant Solution Ipratropium-Albuterol 0.5-2.5 (3) MG/3ML Ipratropium-Albuterol 0.5-2.5 (3) MG/3ML 05/21/2019 12:00:00 AM EST 3.0 {ml_as_needed} active Ipratropium-Albuterol 0.5-2.5 (3) MG/3ML eCW1 ([facility]) Albuterol 0.833 MG/ML / Ipratropium Brom clotilde 0.167 MG/ML Inhalant Solution Ipratropium-Albuterol 0.5-2.5 (3) MG/3ML Ipratropium-Albuterol 0.5-2.5 (3) MG/3ML 05/21/2019 12:00:00 AM EST active 3 ml as needed eCW1 ([facility]) Albuterol 0.833 MG/ML / Ipratropium Brom clotilde 0.167 MG/ML Inhalant Solution Ipratropium-Albuterol 0.5-2.5 (3) MG/3ML Ipratropium-Albuterol 0.5-2.5 (3) MG/3ML 05/21/2019 12:00:00 AM EST 3.0 {ml_as_needed} active Ipratropium-Albuterol 0.5-2.5 (3) MG/3ML eCW1 ([facility]) Albuterol 0.833 MG/ML / Ipratropium Brom clotilde 0.167 MG/ML Inhalant Solution Ipratropium-Albuterol 0.5-2.5 (3) MG/3ML Ipratropium-Albuterol 0.5-2.5 (3) MG/3ML 05/21/2019 12:00:00 AM EST 3.0 {ml_as_needed} active Ipratropium-Albuterol 0.5-2.5 (3) MG/3ML eCW1 ([facility]) Polyethylene Glycol - Polyethylene Glycol - 05/21/2019 12:00:00 AM EST active Polyethylene Glycol - eCW1 ( [facility]) Doxycycline Monohydrate 100 MG Oral Capsule Doxycycline [place] hydrate 100 MG 05/12/2019 12:00:00 AM EST suspended 1 capsule eCW1 ([facility]) Doxycycline Monohydrate 100 MG Oral Capsule Doxycycline [place] hydrate 100 MG 05/12/2019 12:00:00 AM EST 1.0 {capsule} suspend ed Doxycycline Monohydrate 100 MG eCW1 ([facility]) Doxycycline Monohydrate 100 MG Oral Capsule Doxycycline [place] hydrate 100 MG 05/12/2019 12:00:00 AM EST 1.0 {capsule} suspend ed Doxycycline Monohydrate 100 MG eCW1 ([facility]) Doxycycline Monohydrate 100 MG Oral Capsule Doxycycline [place] hydrate 100 MG 05/12/2019 12:00:00 AM EST active 1 capsule eCW1 ([facility]) Doxycycline Monohydrate 100 MG Oral Capsule Doxycycline [place] hydrate 100 MG 05/12/2019 12:00:00 AM EST 1.0 {capsule} suspend ed Doxycycline Monohydrate 100 MG eCW1 ([facility]) Doxycycline Monohydrate 100 MG Oral Capsule Doxycycline [place] hydrate 100 MG 05/12/2019 12:00:00 AM EST 1.0 {capsule} suspend ed Doxycycline Monohydrate 100 MG eCW1 ([facility]) Doxycycline Monohydrate 100 MG Oral Capsule Doxycycline [place] hydrate 100 MG 05/12/2019 12:00:00 AM EST 1.0 {capsule} suspend ed Doxycycline Monohydrate 100 MG eCW1 ([facility]) Doxycycline Monohydrate 100 MG Oral Capsule Doxycycline [place] hydrate 100 MG 05/12/2019 12:00:00 AM EST 1.0 {capsule} suspend ed Doxycycline Monohydrate 100 MG eCW1 ([facility]) Doxycycline Monohydrate 100 MG Oral Capsule Doxycycline [place] hydrate 100 MG 05/12/2019 12:00:00 AM EST 1.0 {capsule} suspend ed Doxycycline Monohydrate 100 MG eCW1 ([facility]) Doxycycline Monohydrate 100 MG Oral Capsule Doxycycline [place] hydrate 100 MG 05/12/2019 12:00:00 AM EST active 1 capsule eCW1 ([facility]) Doxycycline Monohydrate 100 MG Oral Capsule Doxycycline [place] hydrate 100 MG 05/12/2019 12:00:00 AM EST active 1 capsule eCW1 ([facility]) Doxycycline Monohydrate 100 MG Oral Capsule Doxycycline [place] hydrate 100 MG 05/12/2019 12:00:00 AM EST 1.0 {capsule} suspend ed Doxycycline Monohydrate 100 MG eCW1 ([facility]) PrednisoLONE 15 MG/5ML PrednisoLONE 15 MG/5ML 05/12/2019 12:00:[address] active 15 ml eCW1 ([facility]) Doxycycline Monohydrate 100 MG Oral Capsule Doxycycline [place] hydrate 100 MG 05/12/2019 12:00:00 AM EST 1.0 {capsule} suspend ed Doxycycline Monohydrate 100 MG eCW1 ([facility]) Iron 325 (65 Fe) MG Iron 325 (65 Fe) MG 05/05/2019 12:00:00 AM EST active 1 tablet eCW1 ([facility]) Iron 325 (65 Fe) MG Iron 325 (65 Fe) MG 05/05/2019 12:00:00 AM EST active 1 tablet eCW1 ([facility]) Iron 325 (65 Fe) MG Iron 325 (65 Fe) MG 05/05/2019 12:00:00 AM EST active 1 tablet eCW1 ([facility]) Iron 325 (65 Fe) MG Iron 325 (65 Fe) MG 05/05/2019 12:00:00 AM EST active 1 tablet eCW1 ([facility]) Ondansetron 4 MG Oral Tablet [Zofran] Zofran 4 MG Zofran 4 M G 04/21/2019 12:00:00 AM EST 1.0 {tablet} active Zo rosy [facility] Ondansetron 4 MG Oral Tablet [Zofran] Zofran 4 MG Zofran 4 M G 04/21/2019 12:00:00 AM EST active 1 tablet [facility]) Ondansetron 4 MG Oral Tablet [Zofran] Zofran 4 MG Zofran 4 M G 04/21/2019 12:00:00 AM EST 1.0 {tablet} active Zo rosy 4 MG [facility]CW1 [facility] Ondansetron 4 MG Oral Tablet [Zofran] Zofran 4 MG Zofran 4 M G 04/21/2019 12:00:00 AM EST 1.0 {tablet} suspended Zofran 4 MG [facility]CW1 [facility]) Ondansetron 4 MG Oral Tablet [Zofran] Zofran 4 MG Zofran 4 M G 04/21/2019 12:00:00 AM EST 1.0 {tablet} active Zo rosy 4 MG eCW1 [facility]) Ondansetron 4 MG Oral Tablet [Zofran] Zofran 4 MG Zofran 4 M G 04/21/2019 12:00:00 AM EST 1.0 {tablet} active Zo rosy 4 MG eCW1 [facility]) Ondansetron 4 MG Oral Tablet [Zofran] Zofran 4 MG Zofran 4 M G 04/21/2019 12:00:00 AM EST 1.0 {tablet} active Zo rosy 4 MG [facility]CW1 [facility]) Ondansetron 4 MG Oral Tablet [Zofran] Zofran 4 MG Zofran 4 M G 04/21/2019 12:00:00 AM EST 1.0 {tablet} active Zo rosy 4 MG eCW1 [facility]) Ondansetron 4 MG Oral Tablet [Zofran] Zofran 4 MG Zofran 4 M G 04/21/2019 12:00:00 AM EST active 1 tablet [facility]CW1 [facility]) Ondansetron 4 MG Oral Tablet [Zofran] Zofran 4 MG Zofran 4 M G 04/21/2019 12:00:00 AM EST active 1 tablet eCW1 [facility]) Ondansetron 4 MG Oral Tablet [Zofran] Zofran 4 MG Zofran 4 M G 04/21/2019 12:00:00 AM EST 1.0 {tablet} active Zo rosy 4 MG eCW1 [facility]) Ondansetron 4 MG Oral Tablet [Zofran] Zofran 4 MG Zofran 4 M G 04/21/2019 12:00:00 AM EST active 1 tablet [facility]CW1 [facility]) Ondansetron 4 MG Oral Tablet [Zofran] Zofran 4 MG Zofran 4 M G 04/21/2019 12:00:00 AM EST active 1 tablet eCW1 [facility]) Ondansetron 4 MG Oral Tablet [Zofran] Zofran 4 MG Zofran 4 M G 04/21/2019 12:00:00 AM EST 1.0 {tablet} active Zo rosy 4 MG eCW1 [facility]) Ondansetron 4 MG Oral Tablet [Zofran] Zofran 4 MG Zofran 4 M G 04/21/2019 12:00:00 AM EST active 1 tablet [facility]CW1 [facility]) Ondansetron 4 MG Oral Tablet [Zofran] Zofran 4 MG Zofran 4 M G 04/21/2019 12:00:00 AM EST active 1 tablet [facility]CW1 [facility]) prednisolone 3 MG/ML Oral Solution PrednisoLONE 15 MG/ 5ML PrednisoLONE 15 MG/5ML 04/19/2019 12:00:00 AM EST 15.0 {ml} suspende d PrednisoLONE 15 MG/5ML eCW1 [facility]) PrednisoLONE 15 MG/5ML PrednisoLONE 15 MG/5ML 04/19/2019 12:00:[address] suspended 15 ml eCW1 ([facility]) prednisolone 3 MG/ML Oral Solution PrednisoLONE 15 MG/ 5ML PrednisoLONE 15 MG/5ML 04/19/2019 12:00:00 AM EST 15.0 {ml} suspende d PrednisoLONE 15 MG/5ML eCW1 [facility]) PrednisoLONE 15 MG/5ML PrednisoLONE 15 MG/5ML 04/19/2019 12:00:[address] active 15 ml eCW1 ([facility]) PrednisoLONE 15 MG/5ML PrednisoLONE 15 MG/5ML 04/19/2019 12:00:[address] active 15 ml eCW1 ([facility]) prednisolone 3 MG/ML Oral Solution PrednisoLONE 15 MG/ 5ML PrednisoLONE 15 MG/5ML 04/19/2019 12:00:00 AM EST 15.0 {ml} suspende d PrednisoLONE 15 MG/5ML [facility]CW[facility] prednisolone 3 MG/ML Oral Solution PrednisoLONE 15 MG/ 5ML PrednisoLONE 15 MG/5ML 04/19/2019 12:00:00 AM EST 15.0 {ml} suspende d PrednisoLONE 15 MG/5ML eCW1 [facility]) prednisolone 3 MG/ML Oral Solution PrednisoLONE 15 MG/ 5ML PrednisoLONE 15 MG/5ML 04/19/2019 12:00:00 AM EST 15.0 {ml} suspende d PrednisoLONE 15 MG/5ML eCW1 [facility]) PrednisoLONE 15 MG/5ML PrednisoLONE 15 MG/5ML 04/19/2019 12:00:00 A M EST 15.0 {ml} suspended PrednisoLONE 15 MG/5ML [facility]CW1 [facility]) prednisolone 3 MG/ML Oral Solution PrednisoLONE 15 MG/ 5ML PrednisoLONE 15 MG/5ML 04/19/2019 12:00:00 AM EST 15.0 {ml} suspende d PrednisoLONE 15 MG/5ML eCW1 [facility]) prednisolone 3 MG/ML Oral Solution PrednisoLONE 15 MG/ 5ML PrednisoLONE 15 MG/5ML 04/19/2019 12:00:00 AM EST 15.0 {ml} suspende d PrednisoLONE 15 MG/5ML eCW1 [facility]) PrednisoLONE 15 MG/5ML PrednisoLONE 15 MG/5ML 04/19/2019 12:00:00 A M EST 15.0 {ml} suspended PrednisoLONE 15 MG/5ML [facility]CW1 [facility]) tramadol hydrochloride 50 MG Oral Tablet Tramadol HCl 50 MG Tramadol HCl 50 MG 04/14/2019 12:00:00 AM EST active 1 tablet as needed [facility]CW[facility]) tramadol hydrochloride 50 MG Oral Tablet Tramadol HCl 50 MG Tramadol HCl 50 MG 04/14/2019 12:00:00 AM EST active 1 tablet as needed [facility]CW1 [facility]) tramadol hydrochloride 50 MG Oral Tablet Tramadol HCl 50 MG Tramadol HCl 50 MG 04/14/2019 12:00:00 AM EST active 1 tablet as needed eCW1 [facility]) tramadol hydrochloride 50 MG Oral Tablet Tramadol HCl 50 MG Tramadol HCl 50 MG 04/14/2019 12:00:00 AM EST active 1 tablet as needed eCW1 [facility]) tramadol hydrochloride 50 MG Oral Tablet Tramadol HCl 50 MG Tramadol HCl 50 MG 04/14/2019 12:00:00 AM EST active 1 tablet as needed eCW1 [facility]) Levothyroxine Sodium 0.025 MG Oral Tablet Levothyroxin e Sodium 25 MCG Levothyroxine Sodium 25 MCG 03/29/2019 12:00:00 AM EST active 1 tablet in the morning on an empty stomach eCW1 [facility]) Levothyroxine Sodium 0.025 MG Oral Tablet Levothyroxin e Sodium 25 MCG Levothyroxine Sodium 25 MCG 03/29/2019 12:00:00 AM EST active 1 tablet in the morning on an empty stomach eCW1 [facility]) Levothyroxine Sodium 0.025 MG Oral Tablet Levothyroxin e Sodium 25 MCG Levothyroxine Sodium 25 MCG 03/29/2019 12:00:00 AM EST active 1 tablet in the morning on an empty stomach eCW1 [facility]) Levothyroxine Sodium 0.025 MG Oral Tablet Levothyroxin e Sodium 25 MCG Levothyroxine Sodium 25 MCG 03/29/2019 12:00:00 AM EST active 1 tablet in the morning on an empty stomach eCW1 [facility]) Levothyroxine Sodium 0.025 MG Oral Tablet Levothyroxin e Sodium 25 MCG Levothyroxine Sodium 25 MCG 03/29/2019 12:00:00 AM EST active 1 tablet in the morning on an empty stomach eCW1 [facility]) Levothyroxine Sodium 0.025 MG Oral Tablet Levothyroxin e Sodium 25 MCG Levothyroxine Sodium 25 MCG 03/29/2019 12:00:00 AM EST active 1 tablet in the morning on an empty stomach eCW1 [facility]) Levothyroxine Sodium 0.025 MG Oral Tablet Levothyroxin e Sodium 25 MCG Levothyroxine Sodium 25 MCG 03/29/2019 12:00:00 AM EST active 1 tablet in the morning on an empty stomach eCW1 [facility]) Levothyroxine Sodium 0.025 MG Oral Tablet Levothyroxin e Sodium 25 MCG Levothyroxine Sodium 25 MCG 03/29/2019 12:00:00 AM EST active 1 tablet in the morning on an empty stomach [facility]CW1 [facility]) Insurance Providers Payer name Policy type / Coverage type Policy ID Covered libertarian ID Covered libertarian's relationship to gutierres Policy Gutierres Plan Information JORGE [id number] SP [id number] [place]ARE [place] [id number] S [id number] [place] S UNAVAILABLE Medicaid S UNAVAILABLE S UNAVAILA BLE JORGE I [id number] Self [id number] JORGE CARE MEDICAID [id number] S [id number] [facility] C[facility] [id number] S [id number] ANSI-Commercial [id number] ANSI-Commercial [id number] ANSI-Commercial [id number] ANSI-Commercial [id number]-[id number] ANSI-Commercial [id number] ANSI-Commercial [id number]-484r-[id number] ANSI-Commercial [id number]-kn48-188z-468r-[id number] zeh1x82d-nb44-848f-057j-[id number] ANSI-Commercial [id number]-tkja-[id number]-[id number] ANSI-Commercial [id number]-4u42-[id number] fm6z3l21-27pz-3o45-[id number] ANSI-Commercial tx7yaxta-[id number] ei4qvxot-3305-375q-[id number] ANSI-Commercial [id number]-[id number]-[id number] [id number]-26d6-140v-ilx8-[id number] ANSI-Commercial [id number]-6qd7-[id number]-2uj9-[id number] [facility] [id number] 18 [id number] ANSI-Commercial [id number]-[id number]-[id number] mvo8c86t-57jc-[id number] ANSI-Commercial z564cm38-588i-236d-bu6e-5c24ja66m7wt c927qz86-366l-328k-ud5x-[id number] ANSI-Commercial [id number]-g29s-[id number] a4y938y7-2284-32dj-a62m-[id number] ANSI-Commercial [id number]-k6ym-35m7-b5w6-[id number]-d1lb-47p1-u9g4-[id number] ANSI-Commercial [id number]-9b76-0r07-[id number] [id number]-9o44-9v69-[id number] JORGE [id number] SP [id number] ANSI-Commercial [id number]-3v61-[id number]-5f90-[id number] ANSI-Commercial [id number]-jr55-2202-zcud-[id number] g5l4057c-mt92-0988-earm-09091a5046cw ANSI-Commercial 511pvuyv-in48-1zf2iy55-6kc9-t44o-[id number] 507deeih-wu98-2ib1iq27-3qr3-s05v-[id number] ANSI-Commercial 9rtp7u22-81t8-8329-va73-mmb11h71954a 5mxv3q67-56j6-4734-ea68-csr71u86187e ANSI-Commercial [id number]-c7x4-0y4k-[id number] [id number] MEDICAID [id number] Counts Include 234 Beds At [facility] ([facility]) [id number] Self [id number] ANSI-Commercial [id number]-[id number]-[id number] ANSI-Commercial [id number]-sb65-[id number] [id number]-fn16-ux7c7i8x32u4 ANSI-Commercial 49wgi9qi-2uv9-2715-[id number] 52nsr6tp-4jt4-3595-[id number] ANSI-Commercial [id number]-d5vr-3u19-c750-4n27bep4886v 412570v7-v7al-7y97-[id number] ANSI-Commercial qt11vy9e-6i4f-[id number] ai79mp1z-7x6k-45p7-1c76-91j4emxq8564 ANSI-Commercial [id number]-806n-[id number] [id number]-431y-5cs9-5mc2-17z112y3118b ANSI-Commercial hun53524-lrf1-7q2q-rjwb-[id number] [id number]-drd9-3x7u-hlkd-751lk8g7g897 [facility] P [id number] S [id number] ANSI-Commercial [id number] puvqb733-3e99-3519-50s4-[id number] ANSI-Commercial [id number]-[id number]-[id number] ANSI-Commercial [id number]-92l4-6py9-e102-kshtkm51ki6x [id number]-14p6-1bg5-i796-istpnb63wp1k ANSI-Commercial [id number]-[id number]-m97q-[id number] [id number]-[id number]-[id number] [facility] Commercial [id number] Self [id number] ANSI-Commercial [id number]-c0c9-[id number] [id number]-p6h5-8z4w-k6v1-vohc04o52b28 ANSI-Commercial o5o1001d-022o-44xu-owhg-[id number]-006o-21tt-kksp-[id number] ANSI-Commercial 28tll8ig-xl37-9h48-y54n-[id number] 22lqi5wu-td13-7f81-n99t-[id number] [facility] Commercial [id number] Self [id number] ANSI-Commercial [id number]-[id number]-[id number] [facility] [id number] SP [id number] ANSI-Commercial [id number]-[id number]-[id number] [id number]-2nfg-625a-[id number] ANSI-Commercial sb8u91vc-g4x3-52j3-[id number]-oggn-[id number] Medicaid [place] Medigap Part B [id number] Self [id number] [facility] [place] Medicaid [id number] Self [id number] ANSI-Commercial [id number]-42n0-[id number] [facility] [id number] SP [id number] [facility] [place] Medicaid [id number] Self [id number] SELF PAY ONLY [id number] SP [id number] [facility] COMM [id number] S [id number] Problems, Conditions, and Diagnoses Code Display Name Description Problem Type Effective Dates Data Source(s) J45.901 [id number] Exacerbation of asth ma, unspecified asthma severity, unspecified whether persistent Problem 05/12/2019 12:00:00 AM EST eC [facility] J45.901 [id number] Exacerbation of asth ma, unspecified asthma severity, unspecified whether persistent Problem 05/12/2019 12:00:00 AM EST eC W1 [facility]) F33.0 [id number] Major depressive disorder, recurrent, mil d Problem 05/07/2019 12:00:00 AM EST eCW1 [facility]) F43.10 [id number] Post-traumatic stress disorder, unspecifi ed Problem 05/07/2019 12:00:00 AM EST eCW1 ([facility]) F41.9 [id number] Anxiety disorder, unspecified type Proble m 05/07/2019 12:00:00 AM EST eCW1 ([facility]) F33.0 [id number] Major depressive disorder, recurrent, mil d Problem 05/07/2019 12:00:00 AM EST eCW1 ([facility]) D50.8 [id number] Other iron deficiency anemia Problem 12:00:00 AM EST eCW1 ([facility]) D50.8 71368189 Other iron deficiency anemia Problem 12:00:00 AM EST eCW1 ([facility]) G89.29 62693448 Other chronic pain Problem 04/14/2019 12:00: 00 AM EST eCW1 ([facility]) M54.6 [id number] Pain in thoracic spine Problem 04/14/19 12:00:00 AM EST eCW1 ([facility]) G89.29 [id number] Other chronic pain Problem 04/14/2019 12:00: 00 AM EST eCW1 ([facility]) M54.6 [id number] Pain in thoracic spine Problem 04/14/19 12:00:00 AM EST eCW1 [facility]) R53.83 Other fatigue Other fatigue Diagnosis 06/10/2019 10:26:14 AM [facility] Surgeries/Procedures Procedure Description Date Indications Data Source(s) PSYTX W PT 45 MINUTES 07/08/2019 12:00:00 AM EDT eCW1 ([facility]) FLOW CYTOMETRY CELL CYCLE/DNA BRADLEY LEUKEMIA / LYMPHOM A PHENOTYPE, PERIPHERAL BLOOD Routine 06/10/2019 9:50 AM EDT 06/10/2019 01:50 :00 PM [facility] REAGENT STRIP/BLOOD GLUCOSE 05/28/2019 12:00:00 AM EDT eCW1 [facility]) Transitional Care NO CHARGE Visit 05/24/2019 12:00:00 AM EDT eCW1 ([facility]) PSYCH DIAGNOSTIC EVALUATION 05/07/2019 12:00:00 AM EST eCW1 ([facility]) OSTEOPATH MANJ 3-4 REGIONS 04/29/2019 12:00:00 AM EST eCW1 ([facility]) Results ID Date Data Source [id number] 03/31/2020 02:12:00 PM EST [facility] ([facility], ) Name Value Range Interpretation Code Description Data Naa rce(s) Supporting Document(s) Glucose [Mass/volume] in Capillary blood by Glucometer 190 mg/dL 70-105 Above high normal [facility] ID Date Data Source [id number] 03/30/2020 12:00:00 PM EST [facility] Name Value Range Interpretation Code Description Data Naa rce(s) Supporting Document(s) SARS coronavirus 2 RNA [Presence] in Res piratory specimen by URIEL with probe detection NEGATIVE [facility] This lab was ordered by [facility] a nd reported by [facility]. ID Date Data Source [id number] 03/29/2020 10:26:00 AM EST [facility] ([facility]) Name Value Range Interpretation Code Description Data Naa rce(s) Supporting Document(s) IgG subclass 4 [Mass/volume] in Serum Laboratory test result [facility] ([facility]) Alpha 1 antitrypsin [Mass/volume] in Serum or Plasma Laboratory sheree t result [facility] ([facility]) ID Date Data Source [id number] 03/29/2020 10:26:00 AM EST [facility] ([facility]) Name Value Range Interpretation Code Description Data Naa rce(s) Supporting Document(s) Amylase [Enzymatic activity/volume] in Serum or Plasma 41 U/L 25-115 Normal (applies to non-numeric results) [facility] ([facility]) Lipoprotein lipase [Enzymatic activity/volume] in Serum or P lasma 287 U/L 73-393 Normal (applies to non-numeric results) [facility] ([facility]) ID Date Data Source [id number] 03/29/2020 10:26:00 AM EST [facility] ([facility]) Name Value Range Interpretation Code Description Data Naa rce(s) Supporting Document(s) Wvrbo-2-Pmkjugekskq [Mass/volume] in Serum or Plasma 1.3 ng/mL Normal (applies to non-numeric results) [facility] ([facility]) THE AFP ASSAY IS PERFORMED ON THE [place] Source BY CHEMILUMINESCENCE AND SHOULD NOT BE COMPARED INTERCHANGEABLY WITH OTHER METHODS. IT SHOULD NOT BE USED ALONE A SCREENING TEST OR DIAGNOSIS FOR THE PRESENCE OR ABSENCE OF MALIGNANT DISEASE. THESE RESULTS ARE NOT INTERPRETABLE IN FEMALES. PREDICTIONS OF DISEASE RECURRENCE SHOULD NOT BE BASED SOLELY ON VALUES OBTAINED FROM SERIAL PATIENT SERUM VALUES. Mitochondria Ab [Units/volume] in Serum Laboratory test result [facility]) ID Date Data Source [id number] 03/29/2020 10:26:00 AM EST [facility]) Name Value Range Interpretation Code Description Data Naa rce(s) Supporting Document(s) Prothrombin Time 13.8 s 12.5-14.3 Normal (applies to non-numeric results) [facility] ([facility]) Inr 1.04 Normal (applies to non-numeric resul ts) [facility] ([facility]) THERAPUTIC HUMAN INR VALUES INDICATIONS NORMAL RANGES PROPHYLAXIS/TREATMENT OF: VENOUS THROMBOSIS 2.0-3.0 PULMONARY EMBOLISM 2.0-3.0 PREVENTION OF SYSTEMIC EMBOLISM FROM: TISSUE HEART VALVES 2.0-3.0 ACUTE MYOCARDIAL INFARCTION 2.0-3.0 VALVULAR HEART DISEASE 2.0-3.0 ATRIAL FIBRILLATION 2.0-3.0 MECHANICAL VALVES(HIGH RISK) 2.5-3.5 RECURRENT MYOCARDIAL INFARCTION 2.5-3.5 ID Date Data Source [id number] 03/29/2020 10:26:00 AM [facility]) Name Value Range Interpretation Code Description Data Naa rce(s) Supporting Document(s) Creatinine For GFR 0.85 mg/dL 0.55-1.30 Normal (applies to non -numeric results) [facility] ([facility]) Blood Urea Nitrogen 15 mg/dL 7-18 Normal (applies to non-nume kobe results) [facility]) Glucose, Fasting 403 mg/dL 70-100 Above upper panic limits [facility] ([facility]) Sodium Level 134 meq/L 136-145 Below low normal [facility] ([facility]) Glomerular Filtration Rate Laboratory test result Normal (applies to non- numeric results) [facility]) <content>Units are mL/min/1.73 m2</content>
<content></content>
<content>Chronic Kidney Disease Staging per NKF:</content>
<content></content>
<content>Stage I & II GFR >=60 Normal to Mildly Decreased</content>
<content>Stage III GFR 30- 59 Moderately Decreased</content>
<content>Stage IV GFR 15-29 Severely Decreased</content>
<content>Stage V GFR <15 Very Little GFR Left</content>
<content>ESRD GFR <15 on R DEVELOPER</content>
<content></content> Potassium Serum 3.9 meq/L 3.5-5.1 Normal (applies to non-numeric results) [facility] ([facility]) Carbon Dioxide Level 24 meq/L 21-32 Normal (applies to non-num ruth results) [facility] ([facility]) Chloride Level 104 meq/L 98-107 Normal (applies to non-numeric r esults) [facility] ([facility]) Anion Gap 6 meq/L 8-16 Below low normal [facility] ( [facility]) Calcium Level 9.0 mg/dL 8.5-10.1 Normal (applies to non-numeric re sults) [facility] ([facility]) Alt/SGPT 161 U/L 12-78 Above high normal [facility] ([facility]) Ast/Sgot 48 U/L 7-37 Above high normal [facility] ([facility]) Alkaline Phosphatase 213 U/L 45-117 Above high normal [facility] ([facility]) Bilirubin,Total 0.3 mg/dL 0.2-1.0 Normal (applies to non-numeric results) [facility] ([facility]) Total Protein 7.3 GM/DL 6.4-8.2 Normal (applies to non-numeric re sults) [facility] Albumin/Globulin Ratio 1.0 1.2-2.2 Below low normal [facility] ([facility]) Albumin 3.7 GM/DL 3.2-5.2 Normal (applies to non-numeric resul ts) [facility] ([facility]) ID Date Data Source [id number] 03/29/2020 10:26:00 AM EST [facility] ([facility]) Name Value Range Interpretation Code Description Data Naa rce(s) Supporting Document(s) Red Blood Count 4.02 10 4.00-5.40 Normal (applies to non-numeric results) [facility]) White Blood Count 7.7 10 4.0-10.0 Normal (applies to non-numeri c results) [facility] ([facility]) Hemoglobin 13.2 g/dL 12.0-15.5 Normal (applies to non-numeric resul ts) [facility]) Mean Corpuscular Hemoglobin 32.8 pg 27.0-33.0 Norm al (applies to non-numeric results) [facility] ([facility]) Hematocrit 41.3 % 36.0-47.0 Normal (applies to non-numeric resul ts) [facility]) Mean Corpuscular Volume 102.7 fl 80.0-96.0 Above high normal [facility] ([facility]) Platelet Count, Automated 248 10 150-450 Normal (applies to non-numeric results) [facility] ([facility]) Mean Corpuscular HGB Conc 32.0 g/dL 32.0-36.5 Normal (applies to non-numeric results) [facility] ([facility]) Red Cell Distribution Width 12.8 % 11.5-14.5 Norm al (applies to non-numeric results) [facility] ([facility]) Neutrophils % 45.3 % 36.0-66.0 Normal (applies to non-numeric re sults) [facility] Lymph % 41.2 % 24.0-44.0 Normal (applies to non-numeric resul ts) [facility] [place] % 8.2 % 0.0-5.0 Above high normal [facility] ([facility]) Immature Granulocyte % 0.5 % 0-3.0 Normal (applies to non-n umeric results) [facility]) Eos % 3.8 % 0.0-3.0 Above high normal [facility]) Baso % 1.0 % 0.0-1.0 Normal (applies to non-numeric resul ts) [facility] ([facility], ) Nucleated Red Blood Cell % 0.0 % 0-0 Normal (applies to n on-numeric results) [facility] ([facility]) Lymph # 3.2 10 1.5-5.0 Normal (applies to non-numeric resul ts) [facility] ([facility]) Neutrophils # 3.5 10 1.5-8.5 Normal (applies to non-numeric re sults) [facility] ([facility]) [place] # 0.6 10 0.0-0.8 Normal (applies to non-numeric resul ts) [facility] ([facility]) Eos # 0.3 10 0.0-0.5 Normal (applies to non-numeric resul ts) [facility] ([facility]) Baso # 0.1 10 0.0-0.2 Normal (applies to non-numeric resul ts) [facility] ([facility]) ID Date Data Source [id number] 06/14/2019 02:14:00 PM [facility] Hematopathology ReportName: ALEKS CRYSTALMRN: [id number] Number: [id number] Date: 06/10/2019 09:50Received Date: 06/11/2019 13:40Physician(s): ZOHAIB AMADOR MD HAGHIR, SHAHANDEH F,MDCopy To:[facility]imen[facility]s) ReceivedA: Blood, Flow Cytometry; Received 2 [...] Signed Out06/14/2019 InterpretationPERIPHERAL BLOOD: CBC performed at [facility] (06/10/19)WBC 7.7 K/uLRBC *3.98 M/uLHgb *10.9 g/dLHct 37.1 %MCV 93.2 fLMCH 27.4 pgMCHC *29.4 g/dLRDW *23.6 %Platelets 283 K/ulDifferential Count (automated): 0.5 % Immature Darvbkkaguvq04.7 % Neutrophils 3.1 % Eosinophils 0.7 % Hqfpgmcpk90.0 % Lymphocytes 8.0 % Monocytes-------100.0 % A few lymphocytes have irregular nuclear contours. Increased anisocytosisand a few elliptocytes and dacryocytes seen. Mildly increased rouleauxformation. Lymphoid Panel: The following markers were assayed: CD45 (gate), CD2, CD3, CD4, CD5, CD7,CD8, CD10, CD11c, CD19, CD20, CD22, CD23, CD25, CD38, CD56, CD57, CD103,[place], Lambda, and FMC7.# events: [id number]: 98%Flow Cytometry Differential (CD45/SSC)Lymphocyte [place]: 43%CD45 dim [place]: 0%Monocyte [place]: 4%Granulocyte [place]: 49%Nucleated/Erythroid [place]: 1%The lymphocyte gate showsB-cells (CD19): 3%[place]et[place]/Lambda Ratio: 1.4T- cells (CD3): 82%NK-cells (CD3-/CD56+): 12%CD4/CD8 Ratio: 0.5Results: (expressed as % of lymphocyte gate)T-cell Markers: CD2 = 90, CD3 = 82, CD3/CD4 = 26, CD3/CD8 = 55, CD5 = 80,CD7 = 86, CD3/57 = 14B-cell markers: [place] = 1, Lambda = 1, CD19 = 3, CD20 = 3, CD19/10 = 0,CD19/CD5 = 0, CD38/CD20 = 2, CD22 = 4, CD19/CD23 = 2, FMC7 = 2Light chain as % of B-Cells: CD19/Whitetail = 35, CD19/Lambda = 26,CD19/CD5/[place]etail = 1, CD19/CD5/Lambda = 0, CD19/CD10/[place]et[place] = 0,CD19/CD10/Lambda = 0CD38 on CD19/5 positive [...] were developed and theirperformance characteristics determined by [facility] Pathology department.They have not been cleared or approved by the US Food and DrugAdministration. The FDA has determined that such clearance or approval isnot necessary. Name Value Range Interpretation Code Description Data Naa rce(s) Supporting Document(s) ID Date Data Source [id number] 06/11/2019 02:27:55 PM EDT [facility] Name Value Range Interpretation Code Description Data Naa rce(s) Supporting Document(s) Flow cytometry study [facility] ID Date Data Source Pathology Request For Service 04/29/2019 12:00:00 AM EST eCW [facility] Name Value Range Interpretation Code Description Data Ana rce(s) Supporting Document(s) PERIPHERAL SMEAR-PATH REVIEW e CW1 ([facility]) ID Date Data Source TRANSFERRIN 04/29/2019 12:00:00 AM EST eCW1 ([facility]) Name Value Range Interpretation Code Description Data Naa rce(s) Supporting Document(s) 391 200-370 TRANSFERRIN eCW1 ([facility]) ID Date Data Source VITB12 & FOL 04/29/2019 12:00:00 AM EST eCW1 ([facility]) Name Value Range Interpretation Code Description Data Naa rce(s) Supporting Document(s) 507 VITAMIN B12 LEVEL eCW1 ([facility]) 7.3 FOLATE eCW1 ([facility]) ID Date Data Source TOTAL IRON BINDING CAPACIT 04/29/2019 12:00:00 AM EST eCW[facility] ( [facility] Name Value Range Interpretation Code Description Data Naa rce(s) Supporting Document(s) 20 50-170 IRON (FE) eCW1 ([facility]) 480 250-450 TOTAL IRON BINDING CAPACI TY eCW1 ([facility]) 4.2 13.2-45.0 PERCENT SATURATION eCW1 ([facility]) ID Date Data Source Reticulocyte Count Sysmex 04/29/2019 12:00:00 AM EST eCW1 ([facility]) Name Value Range Interpretation Code Description Data Naa rce(s) Supporting Document(s) 2.1 0.5-1.5 RETICULOCYTE % eCW1 ([facility]) ID Date Data Source PERIPH SMEAR FOR PATH REVIEW 04/29/2019 12:00:00 AM EST eCW1 ([facility]) Name Value Range Interpretation Code Description Data Naa rce(s) Supporting Document(s) Report SLIDE REVIEW eCW1 ([facility]) PERIPHERAL SMEAR SOURCE eCW1 ([facility]) ID Date Data Source FERRITIN 04/29/2019 12:00:00 AM EST eCW1 ([facility]) Name Value Range Interpretation Code Description Data Naa rce(s) Supporting Document(s) 12 252 FERRITIN eCW1 ([facility]) ID Date Data Source CBC with Differential 04/29/2019 12:00:00 AM EST eCW1 ([facility]) Name Value Range Interpretation Code Description Data Naa rce(s) Supporting Document(s) 40.5 24.0-44.0 LYMPH % eCW1 ([facility]) 49.4 36.0-66.0 NEUTROPHILS % eCW1 ([facility]) 6.7 0.0-5.0 MONO % eCW1 ([facility]) 0.6 0.0-1.0 BASO % eCW1 ([facility]) 2.3 0.0-3.0 EOS % eCW1 ([facility]) 0.7 0.0-0.8 MONO # eCW1 ([facility]) 0.3 0.0-0.5 EOS # eCW1 ([facility]) 4.5 1.5-5.0 LYMPH # eCW1 ([facility]) 5.5 1.5-8.5 NEUTROPHILS # eCW1 ([facility]) 0.1 0.0-0.2 BASO # eCW1 ([facility]) 3.93 4.00-5.40 RED BLOOD COUNT eCW1 ([facility]) 12.0 4.0-10.0 WHITE BLOOD COUNT eCW1 ([facility]) 9.7 12.0-15.5 HEMOGLOBIN eCW1 ([facility]) 33.4 36.0-47.0 HEMATOCRIT eCW1 ([facility]) 85.0 80.0-96.0 MEAN CORPUSCULAR VOLUME e CW1 ([facility]) 24.7 27.0-33.0 MEAN CORPUSCULAR HEMOGLOB IN eCW1 ([facility]) 29.0 32.0-36.5 MEAN CORPUSCULAR HGB CONC eCW1 ([facility]) 16.4 11.5-14.5 RED CELL DISTRIBUTION WID TH eCW1 ([facility]) 300 150-450 PLATELET COUNT, AUTOMATED eCW1 ([facility]) ID Date Data Source GAMMA GLUTAMYLTRANSPEPTIDASE 04/14/2019 12:00:00 AM EST eCW1 ([facility]) Name Value Range Interpretation Code Description Data Naa rce(s) Supporting Document(s) 75 5-55 GAMMA GLUTAMYLTRANSPEPTIDASE e CW1 ([facility]) ID Date Data Source VITAMIN D 25-HYDROXY 04/14/2019 12:00:00 AM EST eCW1 ([facility]) Name Value Range Interpretation Code Description Data Naa rce(s) Supporting Document(s) 13.3 30.0-100.0 TOTAL 25(OH) VITAMIN D eC W1 ([facility]) ID Date Data Source PTH INTACT 04/14/2019 12:00:00 AM EST eCW1 ([facility]) Name Value Range Interpretation Code Description Data Naa rce(s) Supporting Document(s) 42.4 18.5-88.0 PTH INTACT eCW1 ([facility]) ID Date Data Source LIVER PROFILE 04/14/2019 12:00:00 AM EST eCW1 ([facility]) Name Value Range Interpretation Code Description Data Naa rce(s) Supporting Document(s) 0.2 0.2-1.0 BILIRUBIN,TOTAL eCW1 ([facility]) 32 7-37 AST/SGOT eCW1 ([facility]) 60 12-78 ALT/SGPT eCW1 ([facility]) < 0.1 0.0-0.2 BILIRUBIN,DIRECT eCW1 ([facility]) 212 45-117 ALKALINE PHOSPHATASE eCW1 ([facility]) 7.8 6.4-8.2 TOTAL PROTEIN eCW1 ([facility]) 3.7 3.2-5.2 ALBUMIN eCW1 ([facility]) 0.90 1.00-1.93 ALBUMIN/GLOBULIN RATIO eCW1 ([facility]) ID Date Data Source Basic Metabolic Profile (BMP) 04/14/2019 12:00:00 AM EST eCW 1 ([facility]) Name Value Range Interpretation Code Description Data Naa rce(s) Supporting Document(s) 15 7-18 BLOOD UREA NITROGEN eCW1 ([facility]) 75 70-100 GLUCOSE, FASTING eCW1 ([facility]) 0.76 0.55-1.30 CREATININE FOR GFR eCW1 ([facility]) > 60.0 >58 GLOMERULAR FILTRATION RATE eCW 1 ([facility]) 107 98-107 CHLORIDE LEVEL eCW1 ([facility]) 4.1 3.5-5.1 POTASSIUM SERUM eCW1 ([facility]) 140 136-145 SODIUM LEVEL eCW1 ([facility]) 9.1 8.5-10.1 CALCIUM LEVEL eCW1 ([facility]) 26 21-32 CARBON DIOXIDE LEVEL eCW1 ([facility]) ID Date Data Source [id number] 04/14/2019 12:00:00 AM EST eCW1 ([facility]) Name Value Range Interpretation Code Description Data Naa rce(s) Supporting Document(s) Microalbumin/Creatinine [Mass Ratio] in Urine 114.0 CREATININE, URINE eCW1 ([facility]) Albumin/Creatinine [Mass Ratio] in Urine 6.7 MALB URINE SIEMENS eCW1 ([facility]) Microalbumin/Creatinine [Ratio] in Urine 5.8 0.0-30.0 MERE/CREAT RATIO eCW1 ([facility]) ID Date Data Source LIPID PANEL (CARDIAC RISK) 04/14/2019 12:00:00 AM EST eCW1 ( [facility]) Name Value Range Interpretation Code Description Data Naa rce(s) Supporting Document(s) Triglyceride [Mass/volume] in Serum or Plasma by calculation 156 <150 TRIGLYCERIDES LEVEL eCW1 ([facility]) Cholesterol [Moles/volume] in Serum or Plasma 205 <200 CHOLESTEROL LEVEL eCW1 ([facility]) Cholesterol in LDL [Mass/volume] in Serum or Plasma by calculation 131 <100 LDL CHOLESTEROL eCW1 ([facility]) Cholesterol in HDL [Moles/volume] in Serum or Plasma 43 >40 HDL CHOLESTEROL eCW1 ([facility]) 4.767 <5 CHOLESTEROL RISK RATIO eCW1 ([facility]) 162 NON-HDL-C eCW1 ([facility]) ID Date Data Source [id number] 04/14/2019 12:00:00 AM EST eCW1 (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 AsthmaBlood clot in lungs- 2019Social/Personal History: Smoking Status: former smokerCurrent Problems: Teeth extraction (ICD-525.10) (LSP56-B36.499)Dental caries (ICD-521.00) (ICD10- K02.9)Current Medications: * ELIQUIS [...] port still present. AsthmaBlood clot in lungs- 2019 Dental Chart: Procedures:Type - CDT Code - Description B - (D1110) Prophylaxis, adult (Performed by Alem Ding RDH) B - (D0120) Periodic oral evaluation - established patient (Performed by Lorene Hernández DMD) Chart Notes:mac (Apr 07 2019 2:56PM): [facility](-). CC: none. Reviewed Xrays. Exam: no caries detected. OCS: WNL, IO/ EO completed, No significant hard findings upon clinical exam Pt was cooperative.OHI givenReferral: N/ANV:recallTimur ABRAHAM, Mike kenia by mac (04/07/2019 2:56 PM): ; norberto [...] last year. 6 month recall. Exc pt. Alem Ding RDH by norberto (04/07/2019 1:34 PM): Tooth Notes and Watches:- Tooth 12 Watch: DistalAlem Ding by norberto (04/02/2018 8:54 AM): - Tooth 13 Watch: MesialAlem Ding by norberto (04/02/2018 8:59 AM): - Tooth 28 Watch: Alem Beaulieu (10/01/2018 1:34 PM): - Tooth 6 Watch: Alem Beaulieu (10/01/2018 1:34 PM): Assessment & Plan Medications:ELIQUISAMLODIPINECANNAB [...] during this visit, including review of any lmyy-nnf-zhywptt medications, herbal therapies, and/or supplements.Allergy ReviewAllergy List was reviewed and/or updated during this visit. Name Value Range Interpretation Code Description Data Naa rce(s) Supporting Document(s) ID Date Data Source [id number] 04/01/2019 10:41:53 AM [facility] Current Problems: Teeth extraction (ICD- 525.10) (XLU92-H82.499)Dental caries (ICD-521.00) (BWR13-O40.9)Current Medications: * AMLODIPINE * CANNABIDIOL * TRULICITY [...] Tooth Notes and Watches:- Tooth 12 Watch: DistalAlem Ding by norberto (04/02/2018 8:54 AM): - Tooth [...] Value Status Description Data Source(s ) Smoking 04/03/2020 12:00:00 AM EST Former Smoker completed Former Smoker [facility] Smoking 12/16/2019 12:00:00 AM EDT Former Smoker completed Former Smoker eCW1 ([facility]) Smoking 12/16/2019 12:00:00 AM EDT Former Smoker completed Former Smoker eCW1 ([facility]) Smoking 12/16/2019 12:00:00 AM EDT Former Smoker completed Former Smoker eCW1 ([facility]) Smoking 12/16/2019 12:00:00 AM EDT Former Smoker completed Former Smoker eCW1 ([facility]) Smoking 12/16/2019 12:00:00 AM EDT Former Smoker completed Former Smoker eCW1 ([facility]) Smoking 12/16/2019 12:00:00 AM EDT Former Smoker completed Former Smoker eCW1 ([facility]) Smoking 12/16/2019 12:00:00 AM EDT Former Smoker completed Former Smoker eCW1 ([facility]) Smoking 07/25/2019 12:00:00 AM EDT Former Smoker completed Former Smoker eCW1 ([facility]) Smoking 04/16/2019 12:00:00 AM EST Patient is a former smoker completed Patient is a former smoker [facility] ([facility]) Vital Signs ID Date Data Source UNK Name Value Range Interpretation Code Description Data Source(s) Body surface area Derived from formula 1.99 m2 1.99 m2 [facility] ([facility]) Body weight 93.895 kg 93.895 kg [facility] ([facility]) [place] body weight 120 [lb_av] 120 [lb_av] [facility] ([facility]) Body mass index (BMI) [Ratio] 35.5 kg/m2 35.5 k g/m2 [facility] ([facility]) Body weight 207.00 [lb_av] 207.00 [lb_av] [facility] T ([facility]) Body height 64 [in_i] 64 [in_i] [facility] ([facility]) 5'4" Diastolic blood pressure 109 mm[Hg] 109 mm[Hg] [facility] ([facility]) Systolic blood pressure 156 mm[Hg] 156 mm[Hg] M EDENT ([facility], ) Diastolic blood pressure 84 mm[Hg] 84 mm[Hg] eCW1 [facility] Systolic blood pressure 115 mm[Hg] 115 mm[Hg] e CW1 ([facility]) Body temperature 97.8 [degF] 97.8 [degF] eCW1 ( [facility]) Respiratory rate 18 /min 18 /min eCW1 ([facility]) Heart rate 108 /min 108 /min eCW1 ([facility]) Body mass index (BMI) [Ratio] 35.87 kg/m2 35.87 kg/m2 eCW1 ([facility]) Body height 64 [in_i] 64 [in_i] eCW1 ([facility]) Body weight 209 [lb_av] 209 [lb_av] eCW1 ([facility]) Body temperature 97.6 [degF] 97.6 [degF] MEDENT ([facility], ) Respiratory rate 18 /min 18 /min MEDENT ( [facility], ) Diastolic blood pressure 94 mm[Hg] 94 mm[Hg] MEDENT ([facility], ) Systolic blood pressure 154 mm[Hg] 154 mm[Hg] [facility] Body mass index (BMI) [Ratio] 36.0 kg/m2 36.0 k g/m2 [facility] ([facility] ) Body weight 210.00 [lb_av] 210.00 [lb_av] MEDEN T ([facility] ) Body height 64 [in_i] 64 [in_i] MEDENT ([facility]) 5'4" Body temperature 97.6 [degF] 97.6 [degF] eCW1 ( [facility]) Respiratory rate 20 /min 20 /min eCW1 ([facility]) Heart rate 134 /min 134 /min eCW1 ([facility]) Body mass index (BMI) [Ratio] 36.04 kg/m2 36.04 kg/m2 eCW1 ([facility]) Body height 64 [in_us] 64 [in_us] eCW1 ([facility]) Body weight Measured 210 [lb_av] 210 [lb_av] eC W1 ([facility]) Diastolic blood pressure 90 mm[Hg] 90 mm[Hg] eCW1 ([facility]) Systolic blood pressure 121 mm[Hg] 121 mm[Hg] e CW1 ([facility]) Diastolic blood pressure 86 mm[Hg] 86 mm[Hg] eCW1 ([facility]) Systolic blood pressure 129 mm[Hg] 129 mm[Hg] e CW1 ([facility]) Body temperature 97.8 [degF] 97.8 [degF] eCW1 ( [facility]) Respiratory rate 18 /min 18 /min eCW1 ([facility]) Heart rate 99 /min 99 /min eCW1 ([facility]) Body mass index (BMI) [Ratio] 36.04 kg/m2 36.04 kg/m2 eCW1 ([facility]) Body height 64 [in_us] 64 [in_us] eCW1 ([facility]) Body weight Measured 210 [lb_av] 210 [lb_av] eC W1 ([facility]) Diastolic blood pressure 91 mm[Hg] 91 mm[Hg] eCW1 ([facility]) Systolic blood pressure 132 mm[Hg] 132 mm[Hg] e CW1 ([facility]) Body temperature 98.7 [degF] 98.7 [degF] eCW1 ( [facility]) Respiratory rate 18 /min 18 /min eCW1 ([facility]) Heart rate 94 /min 94 /min eCW1 ([facility]) Body mass index (BMI) [Ratio] 36.21 kg/m2 36.21 kg/m2 eCW1 ([facility]) Body height 64 [in_us] 64 [in_us] eCW1 ([facility]) Body weight Measured 211 [lb_av] 211 [lb_av] eC W1 ([facility]) Diastolic blood pressure 86 mm[Hg] 86 mm[Hg] eCW1 ([facility]) Systolic blood pressure 146 mm[Hg] 146 mm[Hg] e CW1 ([facility]) Body temperature 97.7 [degF] 97.7 [degF] eCW1 ( [facility]) Respiratory rate 18 /min 18 /min eCW1 ([facility]) Heart rate 102 /min 102 /min eCW1 ([facility]) Body mass index (BMI) [Ratio] 36.04 kg/m2 36.04 kg/m2 eCW1 ([facility]) Body height 64 [in_us] 64 [in_us] eCW1 ([facility]) Body weight Measured 210 [lb_av] 210 [lb_av] eC W1 ([facility]) Body mass index (BMI) [Ratio] 36.04 kg/m2 36.04 kg/m2 eCW1 ([facility]) Body height 64 [in_us] 64 [in_us] eCW1 ([facility]) Body weight Measured 210 [lb_av] 210 [lb_av] eC W1 ([facility]) Diastolic blood pressure 100 mm[Hg] 100 mm[Hg] eCW1 ([facility]) Systolic blood pressure 146 mm[Hg] 146 mm[Hg] e CW1 ([facility]) Body temperature 98.0 [degF] 98.0 [degF] eCW1 ( [facility]) Respiratory rate 18 /min 18 /min eCW1 ([facility]) Heart rate 96 /min 96 /min eCW1 ([facility]) Diastolic blood pressure 85 mm[Hg] 85 mm[Hg] eCW1 ([facility]) Systolic blood pressure 135 mm[Hg] 135 mm[Hg] e CW1 ([facility]) Body temperature 97.7 [degF] 97.7 [degF] eCW1 ( [facility]) Respiratory rate 18 /min 18 /min eCW1 ([facility]) Heart rate 100 /min 100 /min eCW1 ([facility]) Body mass index (BMI) [Ratio] 36.39 kg/m2 36.39 kg/m2 eCW1 ([facility]) Body height 64 [in_us] 64 [in_us] eCW1 ([facility]) Body weight Measured 212 [lb_av] 212 [lb_av] eC W1 ([facility]) Diastolic blood pressure 88 mm[Hg] 88 mm[Hg] eCW1 ([facility]) Systolic blood pressure 127 mm[Hg] 127 mm[Hg] e CW1 ([facility]) Body temperature 99.0 [degF] 99.0 [degF] eCW1 ( [facility]) Respiratory rate 16 /min 16 /min eCW1 ([facility]) Heart rate 83 /min 83 /min eCW1 ([facility]) Body mass index (BMI) [Ratio] 35.53 kg/m2 35.53 kg/m2 eCW1 ([facility]) Body height 64 [in_us] 64 [in_us] eCW1 ([facility]) Body weight Measured 207 [lb_av] 207 [lb_av] eC W1 [facility] Patient Treatment Plan of Care Planned Activity Planned Date Details Description Data Source (s) Steglatro 5 MG 04/04/2020 12:00:00 AM EST eCW1 ([facility]) [place] 31G X 5 MM 04/03/2020 12:00:00 AM EST eCW1 [facility]) Oseltamivir 75 MG Oral Capsule [Tamiflu] 04/03/2020 12:00:00 AM EST eCW1 ([facility]) Acetaminophen 325 MG / Hydrocodone Bitartrate 5 MG Ora l Tablet 04/03/2020 12:00:00 AM EST eCW1 ([facility]) Glucometer 01/10/2020 12:00:00 AM EDT e CW1 ([facility]) Lancets - 01/10/2020 12:00:00 AM EDT e CW1 ([facility]) Glucometer 01/10/2020 12:00:00 AM EDT e CW1 ([facility]) Lancets - 01/10/2020 12:00:00 AM EDT e CW1 ([facility]) Glucometer 01/10/2020 12:00:00 AM EDT e CW1 ([facility]) Lancets - 01/10/2020 12:00:00 AM EDT e CW1 ([facility]) Glucometer 01/10/2020 12:00:00 AM EDT e CW1 ([facility]) Lancets - 01/10/2020 12:00:00 AM EDT e CW1 ([facility]) Glucometer 01/10/2020 12:00:00 AM EDT e CW1 ([facility]) Lancets - 01/10/2020 12:00:00 AM EDT e CW1 ([facility]) Glucometer 01/10/2020 12:00:00 AM EDT e CW1 ([facility]) Lancets - 01/10/2020 12:00:00 AM EDT e CW1 ([facility]) Acetaminophen 325 MG / Hydrocodone Bitartrate 5 MG Ora l Tablet 12/29/2019 12:00:00 AM EDT eCW1 ([facility]) Acetaminophen 325 MG / Hydrocodone Bitartrate 5 MG Ora l Tablet 12/29/2019 12:00:00 AM EDT eCW1 ([facility]) Acetaminophen 325 MG / Hydrocodone Bitartrate 5 MG Ora l Tablet 12/29/2019 12:00:00 AM EDT eCW1 ([facility]) Acetaminophen 325 MG / Hydrocodone Bitartrate 5 MG Ora l Tablet 12/29/2019 12:00:00 AM EDT eCW1 ([facility]) Acetaminophen 325 MG / Hydrocodone Bitartrate 5 MG Ora l Tablet 12/29/2019 12:00:00 AM EDT eCW1 ([facility]) Acetaminophen 325 MG / Hydrocodone Bitartrate 5 MG Ora l Tablet 12/29/2019 12:00:00 AM EDT eCW1 ([facility]) Acetaminophen 325 MG / Hydrocodone Bitartrate 5 MG Ora l Tablet 12/29/2019 12:00:00 AM EDT eCW1 ([facility]) Fluconazole 150 MG Oral Tablet [Diflucan] 06/09/2019 12:00:00 AM ED T eCW1 [facility]) PrednisoLONE 15 MG/5ML 05/12/2019 12:00:00 AM EST eCW1 ([facility]) Doxycycline Monohydrate 100 MG Oral Capsule 05/12/2019 12:00:00 AM EST eCW1 ([facility]) Iron 325 (65 Fe) MG 05/05/2019 12:00:00 AM EST eCW1 ([facility]) Ondansetron 4 MG Oral Tablet [Zofran] 04/21/2019 12:00:00 AM EST eCW1 ([facility]) tramadol hydrochloride 50 MG Oral Tablet 04/14/2019 12:00:00 AM EST eCW1 ([facility]) Levothyroxine Sodium 0.025 MG Oral Tablet 03/29/2019 12:00:00 AM ES T eCW1 ([facility])
[2020-04-20 20:31] LABS: BASO # 0.1 10^3/uL (0.0-0.2); BASO % 0.5 % (0.0-1.0); EOS # 0.4 10^3/uL (0.0-0.5); EOS % 2.9 % (0.0-3.0); HEMATOCRIT 42.3 % (36.0-47.0); HEMOGLOBIN 13.8 g/dl (12.0-15.5); LYMPH # 4.9 10^3/uL (1.5-5.0); LYMPH % 39.3 % (24.0-44.0); MEAN CORPUSCULAR HEMOGLOBIN 33.2 pg (27.0-33.0); MEAN CORPUSCULAR HGB CONC 32.6 g/dl (32.0-36.5); MEAN CORPUSCULAR VOLUME 101.7 fl (80.0-96.0); MONO # 0.9 10^3/uL (0.0-0.8); NEUTROPHILS # 6.2 10^3/uL (1.5-8.5); NEUTROPHILS % 49.5 % (36.0-66.0); PLATELET COUNT, AUTOMATED 296 10^3/uL (150-450); RED BLOOD COUNT 4.16 10^6/uL (4.00-5.40); WHITE BLOOD COUNT 12.4 10^3/uL (4.0-10.0)
[2020-04-20 21:04] LABS: ALBUMIN 4.2 GM/DL (3.2-5.2); ALT/SGPT 152 U/L (12-78); BILIRUBIN,DIRECT < 0.1 MG/DL (0.0-0.2); BILIRUBIN,TOTAL 0.2 MG/DL (0.2-1.0); BLOOD UREA NITROGEN 9 MG/DL (7-18); CALCIUM LEVEL 10.1 MG/DL (8.5-10.1); CARBON DIOXIDE LEVEL 25 MEQ/L (21-32); CHLORIDE LEVEL 109 MEQ/L (98-107); CREATININE FOR GFR 0.75 MG/DL (0.55-1.30); GLOMERULAR FILTRATION RATE > 60.0 (>58); GLUCOSE, FASTING 159 MG/DL (70-100); LIPASE 279 U/L (73-393); POTASSIUM SERUM 3.9 MEQ/L (3.5-5.1); SODIUM LEVEL 141 MEQ/L (136-145); TOTAL PROTEIN 8.8 GM/DL (6.4-8.2)
[2020-04-21] MEDS ORDERED: MORPHINE 4 MG/ML 1ML VIAL/SYRINGE (J2270) IV PRN (03:30)
[2020-04-21] MEDS ORDERED: ONDANSETRON 4MG/2ML VIAL IV ONE (03:30)
[2020-04-21] MEDS ORDERED: ISOVUE-370 76% 100ML VIAL As Ordered ONE (03:35)
--- NOTE | 2020-04-21 04:25 | REPVR ---
PROCEDURE INFORMATION: Exam: US Abdomen, Limited; Right Upper Quadrant Exam date and time: 04/21/2020 3:41 AM Age: 49 years old Clinical indication: Abdominal pain; Epigastric; Prior surgery; Surgery date: 6+ months; Surgery type: S/P cholecystectomy; Additional info: Ruq abd pain, eval cbd TECHNIQUE: Imaging protocol: US abdomen. Real time ultrasound with image documentation. Limited exam focused on the right upper quadrant. COMPARISON: Abdomen, limited US 07/08/2019 9:12 AM FINDINGS: Liver: The liver demonstrates no focal defects. Gallbladder: Status post cholecystectomy. Common bile duct: The CBD measures 7 mm. Pancreas: The pancreas appears normal. Right kidney: The right kidney measures 11.8 cm and demonstrates no hydronephrosis. IMPRESSION: 1. Status post cholecystectomy. 2. Otherwise negative right upper quadrant sonogram. The CBD measures 7 mm. Electronically signed by: Eugene Matthews On 04/21/2020 04:25:01 AM
--- NOTE | 2020-04-21 04:30 | REPVR ---
PROCEDURE INFORMATION: Exam: CT Abdomen And Pelvis With Contrast Exam date and time: 04/21/2020 3:20 AM Age: 49 years old Clinical indication: Abdominal pain; Generalized; Patient HX: Pain ruq vomits; Additional info: Ruq abd pain, vomiting TECHNIQUE: Imaging protocol: Computed tomography of the abdomen and pelvis with contrast. Radiation optimization: All CT scans at this facility use at least one of these dose optimization techniques: automated exposure control; mA and/or kV adjustment per patient size (includes targeted exams where dose is matched to clinical indication); or iterative reconstruction. Contrast material: ISO; Contrast volume: 100 ml; Contrast route: INTRAVENOUS (IV); COMPARISON: CT ABD/PEL W/IV CONTRAST ONLY 12/04/2019 8:08 PM FINDINGS: Liver: Normal. No mass. Gallbladder and bile ducts: Mild biliary dilation which is attributed to prior cholecystectomy and is likely physiologic. The CBD measures 13 mm and tapers to the ampulla with no distal mass or calculus. Status post cholecystectomy. Pancreas: Normal. No ductal dilation. Spleen: Normal. No splenomegaly. Adrenal glands: Normal. No mass. Kidneys and ureters: Normal. No hydronephrosis. Stomach and bowel: There are sutures at the cecal tip with a few surgical clips in the right lower quadrant consistent with prior appendectomy. Appendix: No evidence of appendicitis. Intraperitoneal space: Unremarkable. No free air. No significant fluid collection. Vasculature: There is minimal atherosclerotic calcification of the abdominal aorta. Lymph nodes: Unremarkable. No enlarged lymph nodes. Urinary bladder: Unremarkable as visualized. Reproductive: Unremarkable as visualized. Bones/joints: Unremarkable. No acute fracture. Soft tissues: Unremarkable. IMPRESSION: 1. Status post cholecystectomy and appendectomy. 2. The CBD measures 13 mm with tapering to the ampulla and is very slightly increased since 12/04/2019. 3. Otherwise negative CT abdomen/pelvis. Electronically signed by: Eugene Matthews On 04/21/2020 04:29:50 AM
--- OUTSIDE RECORDS SUMMARY | 2020-04-21 04:35 | CCD ---
Author Author [facility] Organization [facility] Address Unknown Phone Unavailable Care Team Providers Care Credit Reference Clerk Name Role Phone PETROFF, JOSE PA Unavailable [...] is protected by Article 27-F of the [facility] Public Health law. If you continue you may have access to information: Regarding HIV / AIDS; Provided by facilities licensed or operated by the [facility] Office of Mental Health; or Provided by the [facility] Office for People With Developmental Disabilities. If such information is present, then the following [facility] mandated warning applies: This information has [...] law may result in a fine or snf sentence or both. A general authorization for the release of medical or other information is NOT sufficient authorization for further disc losure. Allergies and Adverse Reactions Type Description Substance Reaction Status Data Source(s ) Drug allergy Meclizine HCl Meclizine Anaphylaxis Active eCW1 ([facility]) metformin Metformin HCl Metformin kidneys Active eCW1 ([facility]) PredniSONE PredniSONE PredniSONE Hives Active eCW1 ([facility]) PredniSONE PredniSONE PredniSONE Hives Active eCW1 ([facility]) PredniSONE PredniSONE PredniSONE Hives Active eCW1 ([facility]) PredniSONE PredniSONE PredniSONE Hives Active eCW1 ([facility]) PredniSONE PredniSONE PredniSONE Hives Active eCW1 ([facility]) PredniSONE PredniSONE Prednisone 10 MG Oral Tablet Hives Active eCW1 ([facility]) PredniSONE PredniSONE Prednisone 10 MG Oral Tablet Hives Active eCW1 ([facility]) Family History Family Member Name Family Member Gender Family Member Status Date o f Status Description Data Source(s) Unknown Unknown Problem MEDENT ([facility], ) Encounters Encounter Providers Location Date Indications Data Source(s ) Unknown [address] [facility] [address] [address] 04/03/2020 12:00:00 AM EST eCW1 ([facility]) Outpatient Attender: DES Matthew/José Antonio/Karl/Masha gilliam 03/29/2020 08:00:00 AM EST MEDENT ([facility] ) Unknown [address] [facility] [address] [address] 02/04/2020 12:00:00 AM EST eCW1 ([facility]) Unknown [address] [facility] [address] [address] 02/04/2020 12:00:00 AM EST eCW1 ([facility]) Unknown [address] [facility] [address] [address] 02/03/2020 12:00:00 AM EST eCW1 ([facility]) Unknown [address] [facility] [address] [address] 02/03/2020 12:00:00 AM EST eCW1 ([facility]) Unknown [address] [facility] [address] [address] 01/10/2020 12:00:00 AM EDT eCW1 ([facility]) Unknown [address] [facility] [address] [address] 12/29/2019 12:00:00 AM EDT eCW1 ([facility]) Outpatient [address] [facility], [facility] [address] 12/16/2019 12:00:00 AM EDT eCW1 ([facility]) Outpatient Attender: Lisa HARO 08/30/2019 12:55:01 P M EDT [facility] Outpatient Referrer: Bjorn Tapia MD 08/17/2019 05:50:00 AM EDT [facility] [address] [place] [address] 08/11/2019 12:00:00 AM EDT eCW1 ([facility]) Outpatient Referrer: Bjorn Tapia MD 08/05/2019 06:01:00 AM EDT [facility] [address] [place] [address] 08/05/2019 12:00:00 AM EDT eCW1 ([facility]) Outpatient Attender: Lisa HARO 08/03/2019 11:33:01 A M EDT [facility] [address] [place] [address] 08/02/2019 12:00:00 AM EDT eCW1 ([facility]) [facility] [address] [place] [address] 07/25/2019 12:00:00 AM EDT eCW1 ([facility]) ([facility]) [facility] Scheduled Visit [address] [place] [address] 07/22/2019 12:00:00 AM EDT eCW1 ([facility]) Outpatient Referrer: Bjorn Tapia MD 07/20/2019 05:35:00 AM EDT [facility] [address] [place] [address] 07/08/2019 12:00:00 AM EDT eCW1 ([facility]) [facility] [address] [facility] [address] 06/30/2019 12:00:00 AM EDT eCW1 ([facility]) [address] [address] 06/25/2019 12:00:00 AM EDT eCW1 ([facility]) [address] [address] 06/21/2019 12:00:00 AM EDT eCW1 ([facility]) Outpatient Attender: Zohaib Gagnon DAdmitter: Zohaib Amador MDReferrer: Zohaib Amador MD 06/10/2019 12:00:00 AM EDT Other fatigue [facility] Other fatigue [address] [address] 06/09/2019 12:00:00 AM EDT eCW1 ([facility]) Outpatient Attender: Lisa Red DDS [facility] 06/07/2019 09:16:00 A M EDT [address] [address] 05/28/2019 12:00:00 AM EDT eCW1 ([facility]) [address] [address] 05/25/2019 12:00:00 AM EDT eCW1 ([facility]) Outpatient Referrer: Bjorn Tapia MD 05/24/2019 12:29:00 PM EDT [facility] [address] [address] 05/24/2019 12:00:00 AM EDT eCW1 ([facility]) Outpatient Referrer: Bjorn Tapia MD 05/20/2019 03:10:00 PM EST [facility] [address] [address] 05/19/2019 12:00:00 AM EST eCW1 ([facility]) [address] [address] 05/19/2019 12:00:00 AM EST eCW1 ([facility]) [facility] [address] [facility] [place] [address] 05/12/2019 12:00:00 AM EST eCW1 ([facility]) [facility] [address] [place] [address] 05/07/2019 12:00:00 AM EST eCW1 ([facility]) [facility] [address] [facility] [place] [address] 05/05/2019 12:00:00 AM EST eCW1 ([facility]) [facility] [address] [facility] [place] [address] 04/29/2019 12:00:00 AM EST eCW1 ([facility]) [facility] [address] [facility] [place] [address] 04/21/2019 12:00:00 AM EST eCW1 ([facility]) [facility] [address] [facility] [place] [address] 04/21/2019 12:00:00 AM EST eCW1 ([facility]) [facility] [address] [facility] [place] [address] 04/14/2019 12:00:00 AM EST eCW1 ([facility]) Outpatient Attender: Lisa BOWMAN 04/07/2019 02:57:00 P M [facility] Outpatient Attender: Lisa BOWMAN 04/07/2019 01:01:00 P M [facility] [address] [facility] [address] 04/06/2019 12:00:00 AM EST eCW1 ([facility]) Outpatient Attender: Lisa BOWMAN 04/01/2019 12:37:01 P M [facility] Outpatient Attender: Lisa BOWMAN 04/01/2019 11:51:00 A M [facility] Outpatient Attender: [facility] 04/01/2019 11:49:00 AM [facility] Outpatient Attender: [facility] 04/01/2019 11:48:00 AM [facility] Outpatient Attender: [facility] 04/01/2019 11:44:59 AM [facility] Outpatient Attender: [facility] 04/01/2019 10:41:00 AM [facility] Outpatient Attender: [facility] 04/01/2019 10:39:02 AM [facility] Outpatient Attender: [facility] 04/01/2019 10:38:[address] [address] 03/29/2019 12:00:00 AM EST eCW1 ([facility]) Outpatient Attender: [facility] 03/04/2019 09:01:08 PM [facility] Emergency Attender: JOSE HOANG 2018 04:26:00 PM EDT - 01/09/2019 04:48:00 PM [facility] Patient discharged. Medications Medication Brand Name Start Date Product Form Dose Route Admi nistrative Instructions Pharmacy Instructions Status Indications Reaction Description Data Source(s) Steglatro 5 MG Steglatro 5 MG 04/04/2020 12:00:00 AM EST 1.0 {ta blet} active Steglatro 5 MG eCW1 ([facility]) Oseltamivir 75 MG Oral Capsule [Tamiflu] Tamiflu 75 MG Tamif jaron 75 MG 04/03/2020 12:00:00 AM EST 1.0 {capsule} active T amiflu 75 MG eCW1 ([facility]) Acetaminophen 325 MG / Hydrocodone Yoli trate 5 MG Oral Tablet Hydrocodone- Acetaminophen 5-325 MG Hydrocodone-Acetaminophen 5-325 MG 04/03/2020 12:00:00 AM EST 1.0 {tablet_as_needed} active Hydrocodone-Acetaminophen 5-325 MG eCW1 ([facility]) Pen Otis 31G X 5 MM Pen Otis 31G X 5 MM 04/03/2020 12:00:[address] active Pen Otis 31G X 5 MM eC W1 ([facility]) Ursodiol 500 MG Oral Tablet Ursodiol 03/29/2020 12:00:00 AM EST ORAL active MEDENT ([facility] ) Glucometer UNK 01/10/2020 12:00:00 AM EDT active Glucometer eCW1 ([facility]) Lancets - Lancets - 01/10/2020 12:00:00 AM EDT [place] Lancets - eCW1 ([facility]) Lancets - Lancets - 01/10/2020 12:00:00 AM EDT [place] Lancets - eCW1 ([facility]) Lancets - Lancets - 01/10/2020 12:00:00 AM EDT [place] Lancets - eCW1 ([facility]) Glucometer UNK 01/10/2020 12:00:00 AM EDT active Glucometer eCW1 ([facility]) Lancets - Lancets - 01/10/2020 12:00:00 AM EDT [place] Lancets - eCW1 ([facility]) Lancets - Lancets - 01/10/2020 12:00:00 AM EDT [place] Lancets - eCW1 ([facility]) Glucometer UNK 01/10/2020 12:00:00 AM EDT active Glucometer eCW1 ([facility]) Glucometer UNK 01/10/2020 12:00:00 AM EDT active Glucometer eCW1 ([facility]) Lancets - Lancets - 01/10/2020 12:00:00 AM EDT [place] Lancets - eCW1 ([facility]) Glucometer UNK 01/10/2020 12:00:00 AM EDT active Glucometer eCW1 ([facility]) Glucometer UNK 01/10/2020 12:00:00 AM EDT active Glucometer eCW1 ([facility]) Glucometer UNK 01/10/2020 12:00:00 AM EDT active Glucometer eCW1 ([facility]) Lancets - Lancets - 01/10/2020 12:00:00 AM EDT [place] Denisroberto - eCW1 ([facility]) Acetaminophen 325 MG / Hydrocodone Yoli trate 5 MG Oral Tablet Hydrocodone- Acetaminophen 5-325 MG Hydrocodone-Acetaminophen 5-325 MG 12/29/2019 12:00:00 AM EDT 1.0 {tablet_as_needed} active Hydrocodone-Acetaminophen 5-325 MG eCW1 ([facility]) Acetaminophen 325 MG / Hydrocodone Yoli trate 5 MG Oral Tablet Hydrocodone- Acetaminophen 5-325 MG Hydrocodone-Acetaminophen 5-325 MG 12/29/2019 12:00:00 AM EDT 1.0 {tablet_as_needed} active Hydrocodone-Acetaminophen 5-325 MG eCW1 ([facility]) Acetaminophen 325 MG / Hydrocodone Yoli trate 5 MG Oral Tablet Hydrocodone- Acetaminophen 5-325 MG Hydrocodone-Acetaminophen 5-325 MG 12/29/2019 12:00:00 AM EDT 1.0 {tablet_as_needed} active Hydrocodone-Acetaminophen 5-325 MG eCW1 ([facility]) Acetaminophen 325 MG / Hydrocodone Yoli trate 5 MG Oral Tablet Hydrocodone- Acetaminophen 5-325 MG Hydrocodone-Acetaminophen 5-325 MG 12/29/2019 12:00:00 AM EDT 1.0 {tablet_as_needed} active Hydrocodone-Acetaminophen 5-325 MG eCW1 ([facility]) Acetaminophen 325 MG / Hydrocodone Yoli trate 5 MG Oral Tablet Hydrocodone- Acetaminophen 5-325 MG Hydrocodone-Acetaminophen 5-325 MG 12/29/2019 12:00:00 AM EDT 1.0 {tablet_as_needed} active Hydrocodone-Acetaminophen 5-325 MG eCW1 ([facility]) Acetaminophen 325 MG / Hydrocodone Yoli trate 5 MG Oral Tablet Hydrocodone- Acetaminophen 5-325 MG Hydrocodone-Acetaminophen 5-325 MG 12/29/2019 12:00:00 AM EDT 1.0 {tablet_as_needed} active Hydrocodone-Acetaminophen 5-325 MG eCW1 ([facility]) Acetaminophen 325 MG / Hydrocodone Yoli trate 5 MG Oral Tablet Hydrocodone- Acetaminophen 5-325 MG Hydrocodone-Acetaminophen 5-325 MG 12/29/2019 12:00:00 AM EDT 1.0 {tablet_as_needed} active Hydrocodone-Acetaminophen 5-325 MG eCW1 ([facility]) tramadol hydrochloride 50 MG Oral Tablet Tramadol HCL 09/16/2019 12:00:00 AM EDT active MEDENT ([facility] ) tramadol hydrochloride 50 MG Oral Tablet Tramadol HCl 50 MG Tramadol HCl 50 MG 09/14/2019 12:00:00 AM EDT 1.0 {tablet_as_needed} active Tramadol HCl 50 MG eCW1 ([facility]) tramadol hydrochloride 50 MG Oral Tablet Tramadol HCl 50 MG Tramadol HCl 50 MG 09/14/2019 12:00:00 AM EDT 1.0 {tablet_as_needed} active Tramadol HCl 50 MG eCW1 ([facility]) tramadol hydrochloride 50 MG Oral Tablet Tramadol HCl 50 MG Tramadol HCl 50 MG 09/14/2019 12:00:00 AM EDT 1.0 {tablet_as_needed} active Tramadol HCl 50 MG eCW1 ([facility]) tramadol hydrochloride 50 MG Oral Tablet Tramadol HCl 50 MG Tramadol HCl 50 MG 09/14/2019 12:00:00 AM EDT 1.0 {tablet_as_needed} suspended Tramadol HCl 50 MG eCW1 ([facility]) tramadol hydrochloride 50 MG Oral Tablet Tramadol HCl 50 MG Tramadol HCl 50 MG 09/14/2019 12:00:00 AM EDT 1.0 {tablet_as_needed} active Tramadol HCl 50 MG eCW1 ([facility]) tramadol hydrochloride 50 MG Oral Tablet Tramadol HCl 50 MG Tramadol HCl 50 MG 09/14/2019 12:00:00 AM EDT 1.0 {tablet_as_needed} active Tramadol HCl 50 MG eCW1 ([facility]) tramadol hydrochloride 50 MG Oral Tablet Tramadol HCl 50 MG Tramadol HCl 50 MG 09/14/2019 12:00:00 AM EDT 1.0 {tablet_as_needed} active Tramadol HCl 50 MG eCW1 ([facility]) tramadol hydrochloride 50 MG Oral Tablet Tramadol HCl 50 MG Tramadol HCl 50 MG 09/14/2019 12:00:00 AM EDT 1.0 {tablet_as_needed} active Tramadol HCl 50 MG eCW1 ([facility]) Fluconazole 150 MG Oral Tablet [Diflucan] Diflucan 150 MG Di flucan 150 MG 06/09/2019 12:00:00 AM EDT 1.0 {tablet} suspended Diflucan 150 MG eCW1 ([facility]) Fluconazole 150 MG Oral Tablet [Diflucan] Diflucan 150 MG Di flucan 150 MG 06/09/2019 12:00:00 AM EDT 1.0 {tablet} suspended Diflucan 150 MG eCW1 ([facility]) Fluconazole 150 MG Oral Tablet [Diflucan] Diflucan 150 MG Di flucan 150 MG 06/09/2019 12:00:00 AM EDT suspended 1 tablet eCW1 ([facility]) Fluconazole 150 MG Oral Tablet [Diflucan] Diflucan 150 MG Di flucan 150 MG 06/09/2019 12:00:00 AM EDT 1.0 {tablet} suspended Diflucan 150 MG eCW1 ([facility]) Fluconazole 150 MG Oral Tablet [Diflucan] Diflucan 150 MG Di flucan 150 MG 06/09/2019 12:00:00 AM EDT 1.0 {tablet} suspended Diflucan 150 MG eCW1 ([facility]) Fluconazole 150 MG Oral Tablet [Diflucan] Diflucan 150 MG Di flucan 150 MG 06/09/2019 12:00:00 AM EDT 1.0 {tablet} suspended Diflucan 150 MG eCW1 ([facility]) Fluconazole 150 MG Oral Tablet [Diflucan] Diflucan 150 MG Di flucan 150 MG 06/09/2019 12:00:00 AM EDT 1.0 {tablet} suspended Diflucan 150 MG eCW1 ([facility]) Fluconazole 150 MG Oral Tablet [Diflucan] Diflucan 150 MG Di flucan 150 MG 06/09/2019 12:00:00 AM EDT 1.0 {tablet} suspended Diflucan 150 MG eCW1 ([facility]) Fluconazole 150 MG Oral Tablet [Diflucan] Diflucan 150 MG Di flucan 150 MG 06/09/2019 12:00:00 AM EDT active 1 tablet eCW1 ([facility]) Fluconazole 150 MG Oral Tablet [Diflucan] Diflucan 150 MG Di flucan 150 MG 06/09/2019 12:00:00 AM EDT 1.0 {tablet} suspended Diflucan 150 MG eCW1 ([facility]) Fluconazole 150 MG Oral Tablet [Diflucan] Diflucan 150 MG Di flucan 150 MG 06/09/2019 12:00:00 AM EDT 1.0 {tablet} suspended Diflucan 150 MG eCW1 ([facility]) Polyethylene Glycol - Polyethylene Glycol - 05/21/2019 12:00:00 AM EST active Polyethylene Glycol - eCW1 ( [facility]) Polyethylene Glycol - Polyethylene Glycol - 05/21/2019 12:00:00 AM EST active as directed eCW1 ([facility]) Albuterol 0.833 MG/ML / Ipratropium Brom clotilde 0.167 MG/ML Inhalant Solution Ipratropium-Albuterol 0.5-2.5 (3) MG/3ML Ipratropium-Albuterol 0.5-2.5 (3) MG/3ML 05/21/2019 12:00:00 AM EST active 3 ml as needed eCW1 ([facility]) Albuterol 0.833 MG/ML / Ipratropium Brom clotilde 0.167 MG/ML Inhalant Solution Ipratropium-Albuterol 0.5-2.5 (3) MG/3ML Ipratropium-Albuterol 0.5-2.5 (3) MG/3ML 05/21/2019 12:00:00 AM EST 3.0 {ml_as_needed} active Ipratropium-Albuterol 0.5-2.5 (3) MG/3ML eCW1 ([facility]) Polyethylene Glycol - Polyethylene Glycol - 05/21/2019 12:00:00 AM EST active Polyethylene Glycol - eCW1 ( [facility]) Albuterol 0.833 MG/ML / Ipratropium Brom clotilde 0.167 MG/ML Inhalant Solution Ipratropium-Albuterol 0.5-2.5 (3) MG/3ML Ipratropium-Albuterol 0.5-2.5 (3) MG/3ML 05/21/2019 12:00:00 AM EST 3.0 {ml_as_needed} active Ipratropium-Albuterol 0.5-2.5 (3) MG/3ML eCW1 ([facility]) Albuterol 0.833 MG/ML / Ipratropium Brom clotilde 0.167 MG/ML Inhalant Solution Ipratropium-Albuterol 0.5-2.5 (3) MG/3ML Ipratropium-Albuterol 0.5-2.5 (3) MG/3ML 05/21/2019 12:00:00 AM EST active 3 ml as needed eCW1 ([facility]) Polyethylene Glycol - Polyethylene Glycol - 05/21/2019 12:00:00 AM EST active Polyethylene Glycol - eCW1 ( [facility]) Albuterol 0.833 MG/ML / Ipratropium Brom clotilde 0.167 MG/ML Inhalant Solution Ipratropium-Albuterol 0.5-2.5 (3) MG/3ML Ipratropium-Albuterol 0.5-2.5 (3) MG/3ML 05/21/2019 12:00:00 AM EST 3.0 {ml_as_needed} active Ipratropium-Albuterol 0.5-2.5 (3) MG/3ML eCW1 ([facility]) Albuterol 0.833 MG/ML / Ipratropium Brom clotilde 0.167 MG/ML Inhalant Solution Ipratropium-Albuterol 0.5-2.5 (3) MG/3ML Ipratropium-Albuterol 0.5-2.5 (3) MG/3ML 05/21/2019 12:00:00 AM EST 3.0 {ml_as_needed} active Ipratropium-Albuterol 0.5-2.5 (3) MG/3ML eCW1 ([facility]) Polyethylene Glycol - Polyethylene Glycol - 05/21/2019 12:00:00 AM EST active as directed eCW1 ([facility]) Polyethylene Glycol - Polyethylene Glycol - 05/21/2019 12:00:00 AM EST active Polyethylene Glycol - eCW1 ( [facility]) Polyethylene Glycol - Polyethylene Glycol - 05/21/2019 12:00:00 AM EST active Polyethylene Glycol - eCW1 ( [facility]) Polyethylene Glycol - Polyethylene Glycol - 05/21/2019 12:00:00 AM EST active Polyethylene Glycol - eCW1 ( [facility]) Polyethylene Glycol - Polyethylene Glycol - 05/21/2019 12:00:00 AM EST active as directed eCW1 ([facility]) Albuterol 0.833 MG/ML / Ipratropium Brom clotilde 0.167 MG/ML Inhalant Solution Ipratropium-Albuterol 0.5-2.5 (3) MG/3ML Ipratropium-Albuterol 0.5-2.5 (3) MG/3ML 05/21/2019 12:00:00 AM EST 3.0 {ml_as_needed} active Ipratropium-Albuterol 0.5-2.5 (3) MG/3ML eCW1 ([facility]) Polyethylene Glycol - Polyethylene Glycol - 05/21/2019 12:00:00 AM EST active Polyethylene Glycol - eCW1 ( [facility]) Albuterol 0.833 MG/ML / Ipratropium Brom clotilde 0.167 MG/ML Inhalant Solution Ipratropium-Albuterol 0.5-2.5 (3) MG/3ML Ipratropium-Albuterol 0.5-2.5 (3) MG/3ML 05/21/2019 12:00:00 AM EST 3.0 {ml_as_needed} active Ipratropium-Albuterol 0.5-2.5 (3) MG/3ML eCW1 ([facility]) Polyethylene Glycol - Polyethylene Glycol - 05/21/2019 12:00:00 AM EST active Polyethylene Glycol - eCW1 ( [facility]) Albuterol 0.833 MG/ML / Ipratropium Brom clotilde 0.167 MG/ML Inhalant Solution Ipratropium-Albuterol 0.5-2.5 (3) MG/3ML Ipratropium-Albuterol 0.5-2.5 (3) MG/3ML 05/21/2019 12:00:00 AM EST 3.0 {ml_as_needed} active Ipratropium-Albuterol 0.5-2.5 (3) MG/3ML eCW1 ([facility]) Albuterol 0.833 MG/ML / Ipratropium Brom clotilde 0.167 MG/ML Inhalant Solution Ipratropium-Albuterol 0.5-2.5 (3) MG/3ML Ipratropium-Albuterol 0.5-2.5 (3) MG/3ML 05/21/2019 12:00:00 AM EST active 3 ml as needed eCW1 ([facility]) Albuterol 0.833 MG/ML / Ipratropium Brom clotilde 0.167 MG/ML Inhalant Solution Ipratropium-Albuterol 0.5-2.5 (3) MG/3ML Ipratropium-Albuterol 0.5-2.5 (3) MG/3ML 05/21/2019 12:00:00 AM EST 3.0 {ml_as_needed} active Ipratropium-Albuterol 0.5-2.5 (3) MG/3ML eCW1 ([facility]) Albuterol 0.833 MG/ML / Ipratropium Brom clotilde 0.167 MG/ML Inhalant Solution Ipratropium-Albuterol 0.5-2.5 (3) MG/3ML Ipratropium-Albuterol 0.5-2.5 (3) MG/3ML 05/21/2019 12:00:00 AM EST 3.0 {ml_as_needed} active Ipratropium-Albuterol 0.5-2.5 (3) MG/3ML eCW1 ([facility]) Polyethylene Glycol - Polyethylene Glycol - 05/21/2019 12:00:00 AM EST active Polyethylene Glycol - eCW1 ( [facility]) Doxycycline Monohydrate 100 MG Oral Capsule Doxycycline Refugio hydrate 100 MG 05/12/2019 12:00:00 AM EST suspended 1 capsule eCW1 ([facility]) Doxycycline Monohydrate 100 MG Oral Capsule Doxycycline Refugio hydrate 100 MG 05/12/2019 12:00:00 AM EST 1.0 {capsule} suspend ed Doxycycline Monohydrate 100 MG eCW1 ([facility]) Doxycycline Monohydrate 100 MG Oral Capsule Doxycycline Refugio hydrate 100 MG 05/12/2019 12:00:00 AM EST 1.0 {capsule} suspend ed Doxycycline Monohydrate 100 MG eCW1 ([facility]) Doxycycline Monohydrate 100 MG Oral Capsule Doxycycline Refugio hydrate 100 MG 05/12/2019 12:00:00 AM EST active 1 capsule eCW1 ([facility]) Doxycycline Monohydrate 100 MG Oral Capsule Doxycycline Refugio hydrate 100 MG 05/12/2019 12:00:00 AM EST 1.0 {capsule} suspend ed Doxycycline Monohydrate 100 MG eCW1 ([facility]) Doxycycline Monohydrate 100 MG Oral Capsule Doxycycline Refugio hydrate 100 MG 05/12/2019 12:00:00 AM EST 1.0 {capsule} suspend ed Doxycycline Monohydrate 100 MG eCW1 ([facility]) Doxycycline Monohydrate 100 MG Oral Capsule Doxycycline Refugio hydrate 100 MG 05/12/2019 12:00:00 AM EST 1.0 {capsule} suspend ed Doxycycline Monohydrate 100 MG eCW1 ([facility]) Doxycycline Monohydrate 100 MG Oral Capsule Doxycycline Refugio hydrate 100 MG 05/12/2019 12:00:00 AM EST 1.0 {capsule} suspend ed Doxycycline Monohydrate 100 MG eCW1 ([facility]) Doxycycline Monohydrate 100 MG Oral Capsule Doxycycline Refugio hydrate 100 MG 05/12/2019 12:00:00 AM EST 1.0 {capsule} suspend ed Doxycycline Monohydrate 100 MG eCW1 ([facility]) Doxycycline Monohydrate 100 MG Oral Capsule Doxycycline Refugio hydrate 100 MG 05/12/2019 12:00:00 AM EST active 1 capsule eCW1 ([facility]) Doxycycline Monohydrate 100 MG Oral Capsule Doxycycline Refugio hydrate 100 MG 05/12/2019 12:00:00 AM EST active 1 capsule eCW1 ([facility]) Doxycycline Monohydrate 100 MG Oral Capsule Doxycycline Refugio hydrate 100 MG 05/12/2019 12:00:00 AM EST 1.0 {capsule} suspend ed Doxycycline Monohydrate 100 MG eCW1 ([facility]) PrednisoLONE 15 MG/5ML PrednisoLONE 15 MG/5ML 05/12/2019 12:00:[address] active 15 ml eCW1 ([facility]) Doxycycline Monohydrate 100 MG Oral Capsule Doxycycline Refugio hydrate 100 MG 05/12/2019 12:00:00 AM EST 1.0 {capsule} suspend ed Doxycycline Monohydrate 100 MG eCW1 ([facility]) Iron 325 (65 Fe) MG Iron 325 (65 Fe) MG 05/05/2019 12:00:00 AM EST active 1 tablet eCW1 ([facility]) Iron 325 (65 Fe) MG Iron 325 (65 Fe) MG 05/05/2019 12:00:00 AM EST active 1 tablet eCW1 ([facility]) Iron 325 (65 Fe) MG Iron 325 (65 Fe) MG 05/05/2019 12:00:00 AM EST active 1 tablet eCW1 ([facility]) Iron 325 (65 Fe) MG Iron 325 (65 Fe) MG 05/05/2019 12:00:00 AM EST active 1 tablet eCW1 ([facility]) Ondansetron 4 MG Oral Tablet [Zofran] Zofran 4 MG Zofran 4 M G 04/21/2019 12:00:00 AM EST 1.0 {tablet} active Zo rosy 4 MG eCW1 ([facility]) Ondansetron 4 MG Oral Tablet [Zofran] Zofran 4 MG Zofran 4 M G 04/21/2019 12:00:00 AM EST active 1 tablet eCW1 ([facility]) Ondansetron 4 MG Oral Tablet [Zofran] Zofran 4 MG Zofran 4 M G 04/21/2019 12:00:00 AM EST 1.0 {tablet} active Zo rosy 4 MG eCW1 ([facility]) Ondansetron 4 MG Oral Tablet [Zofran] Zofran 4 MG Zofran 4 M G 04/21/2019 12:00:00 AM EST 1.0 {tablet} suspended Zofran 4 MG eCW1 ([facility]) Ondansetron 4 MG Oral Tablet [Zofran] Zofran 4 MG Zofran 4 M G 04/21/2019 12:00:00 AM EST 1.0 {tablet} active Zo rosy 4 MG eCW1 ([facility]) Ondansetron 4 MG Oral Tablet [Zofran] Zofran 4 MG Zofran 4 M G 04/21/2019 12:00:00 AM EST 1.0 {tablet} active Zo rosy 4 MG eCW1 ([facility]) Ondansetron 4 MG Oral Tablet [Zofran] Zofran 4 MG Zofran 4 M G 04/21/2019 12:00:00 AM EST 1.0 {tablet} active Zo rosy 4 MG eCW1 ([facility]) Ondansetron 4 MG Oral Tablet [Zofran] Zofran 4 MG Zofran 4 M G 04/21/2019 12:00:00 AM EST 1.0 {tablet} active Zo rosy 4 MG eCW1 ([facility]) Ondansetron 4 MG Oral Tablet [Zofran] Zofran 4 MG Zofran 4 M G 04/21/2019 12:00:00 AM EST active 1 tablet eCW1 ([facility]) Ondansetron 4 MG Oral Tablet [Zofran] Zofran 4 MG Zofran 4 M G 04/21/2019 12:00:00 AM EST active 1 tablet eCW1 ([facility]) Ondansetron 4 MG Oral Tablet [Zofran] Zofran 4 MG Zofran 4 M G 04/21/2019 12:00:00 AM EST 1.0 {tablet} active Zo rosy 4 MG eCW1 ([facility]) Ondansetron 4 MG Oral Tablet [Zofran] Zofran 4 MG Zofran 4 M G 04/21/2019 12:00:00 AM EST active 1 tablet eCW1 ([facility]) Ondansetron 4 MG Oral Tablet [Zofran] Zofran 4 MG Zofran 4 M G 04/21/2019 12:00:00 AM EST active 1 tablet eCW1 ([facility]) Ondansetron 4 MG Oral Tablet [Zofran] Zofran 4 MG Zofran 4 M G 04/21/2019 12:00:00 AM EST 1.0 {tablet} active Zo rosy 4 MG eCW1 ([facility]) Ondansetron 4 MG Oral Tablet [Zofran] Zofran 4 MG Zofran 4 M G 04/21/2019 12:00:00 AM EST active 1 tablet eCW1 ([facility]) Ondansetron 4 MG Oral Tablet [Zofran] Zofran 4 MG Zofran 4 M G 04/21/2019 12:00:00 AM EST active 1 tablet eCW1 ([facility]) prednisolone 3 MG/ML Oral Solution PrednisoLONE 15 MG/ 5ML PrednisoLONE 15 MG/5ML 04/19/2019 12:00:00 AM EST 15.0 {ml} suspende d PrednisoLONE 15 MG/5ML eCW1 ([facility]) PrednisoLONE 15 MG/5ML PrednisoLONE 15 MG/5ML 04/19/2019 12:00:[address] suspended 15 ml eCW1 ([facility]) prednisolone 3 MG/ML Oral Solution PrednisoLONE 15 MG/ 5ML PrednisoLONE 15 MG/5ML 04/19/2019 12:00:00 AM EST 15.0 {ml} suspende d PrednisoLONE 15 MG/5ML eCW1 ([facility]) PrednisoLONE 15 MG/5ML PrednisoLONE 15 MG/5ML 04/19/2019 12:00:[address] active 15 ml eCW1 ([facility]) PrednisoLONE 15 MG/5ML PrednisoLONE 15 MG/5ML 04/19/2019 12:00:[address] active 15 ml eCW1 ([facility]) prednisolone 3 MG/ML Oral Solution PrednisoLONE 15 MG/ 5ML PrednisoLONE 15 MG/5ML 04/19/2019 12:00:00 AM EST 15.0 {ml} suspende d PrednisoLONE 15 MG/5ML eCW1 ([facility]) prednisolone 3 MG/ML Oral Solution PrednisoLONE 15 MG/ 5ML PrednisoLONE 15 MG/5ML 04/19/2019 12:00:00 AM EST 15.0 {ml} suspende d PrednisoLONE 15 MG/5ML eCW1 ([facility]) prednisolone 3 MG/ML Oral Solution PrednisoLONE 15 MG/ 5ML PrednisoLONE 15 MG/5ML 04/19/2019 12:00:00 AM EST 15.0 {ml} suspende d PrednisoLONE 15 MG/5ML eCW1 ([facility]) PrednisoLONE 15 MG/5ML PrednisoLONE 15 MG/5ML 04/19/2019 12:00:00 A M EST 15.0 {ml} suspended PrednisoLONE 15 MG/5ML eCW1 ([facility]) prednisolone 3 MG/ML Oral Solution PrednisoLONE 15 MG/ 5ML PrednisoLONE 15 MG/5ML 04/19/2019 12:00:00 AM EST 15.0 {ml} suspende d PrednisoLONE 15 MG/5ML eCW1 ([facility]) prednisolone 3 MG/ML Oral Solution PrednisoLONE 15 MG/ 5ML PrednisoLONE 15 MG/5ML 04/19/2019 12:00:00 AM EST 15.0 {ml} suspende d PrednisoLONE 15 MG/5ML eCW1 ([facility]) PrednisoLONE 15 MG/5ML PrednisoLONE 15 MG/5ML 04/19/2019 12:00:00 A M EST 15.0 {ml} suspended PrednisoLONE 15 MG/5ML eCW1 ([facility]) tramadol hydrochloride 50 MG Oral Tablet Tramadol HCl 50 MG Tramadol HCl 50 MG 04/14/2019 12:00:00 AM EST active 1 tablet as needed eCW1 ([facility]) tramadol hydrochloride 50 MG Oral Tablet Tramadol HCl 50 MG Tramadol HCl 50 MG 04/14/2019 12:00:00 AM EST active 1 tablet as needed eCW1 ([facility]) tramadol hydrochloride 50 MG Oral Tablet Tramadol HCl 50 MG Tramadol HCl 50 MG 04/14/2019 12:00:00 AM EST active 1 tablet as needed eCW1 ([facility]) tramadol hydrochloride 50 MG Oral Tablet Tramadol HCl 50 MG Tramadol HCl 50 MG 04/14/2019 12:00:00 AM EST active 1 tablet as needed eCW1 ([facility]) tramadol hydrochloride 50 MG Oral Tablet Tramadol HCl 50 MG Tramadol HCl 50 MG 04/14/2019 12:00:00 AM EST active 1 tablet as needed eCW1 ([facility]) Levothyroxine Sodium 0.025 MG Oral Tablet Levothyroxin e Sodium 25 MCG Levothyroxine Sodium 25 MCG 03/29/2019 12:00:00 AM EST active 1 tablet in the morning on an empty stomach eCW1 ([facility]) Levothyroxine Sodium 0.025 MG Oral Tablet Levothyroxin e Sodium 25 MCG Levothyroxine Sodium 25 MCG 03/29/2019 12:00:00 AM EST active 1 tablet in the morning on an empty stomach eCW1 ([facility]) Levothyroxine Sodium 0.025 MG Oral Tablet Levothyroxin e Sodium 25 MCG Levothyroxine Sodium 25 MCG 03/29/2019 12:00:00 AM EST active 1 tablet in the morning on an empty stomach eCW1 ([facility]) Levothyroxine Sodium 0.025 MG Oral Tablet Levothyroxin e Sodium 25 MCG Levothyroxine Sodium 25 MCG 03/29/2019 12:00:00 AM EST active 1 tablet in the morning on an empty stomach eCW1 ([facility]) Levothyroxine Sodium 0.025 MG Oral Tablet Levothyroxin e Sodium 25 MCG Levothyroxine Sodium 25 MCG 03/29/2019 12:00:00 AM EST active 1 tablet in the morning on an empty stomach eCW1 ([facility]) Levothyroxine Sodium 0.025 MG Oral Tablet Levothyroxin e Sodium 25 MCG Levothyroxine Sodium 25 MCG 03/29/2019 12:00:00 AM EST active 1 tablet in the morning on an empty stomach eCW1 ([facility]) Levothyroxine Sodium 0.025 MG Oral Tablet Levothyroxin e Sodium 25 MCG Levothyroxine Sodium 25 MCG 03/29/2019 12:00:00 AM EST active 1 tablet in the morning on an empty stomach eCW1 ([facility]) Levothyroxine Sodium 0.025 MG Oral Tablet Levothyroxin e Sodium 25 MCG Levothyroxine Sodium 25 MCG 03/29/2019 12:00:00 AM EST active 1 tablet in the morning on an empty stomach eCW1 ([facility]) Insurance Providers Payer name Policy type / Coverage type Policy ID Covered green party ID Covered green party's relationship to gutierres Policy Gutierres Plan Information JORGE [id number] SP [id number] [place] [id number] S [id number] Man[place] UNAVAIL[place] S UNAVAILABLE Medicaid S UNAVAILABLE S UNAVAILA BLE JORGE I [id number] Self [id number] JORGE CARE MEDICAID [id number] S [id number] [facility] CARE [id number] S [id number] ANSI-Commercial [id number] ANSI-Commercial [id number] ANSI-Commercial [id number] ANSI-Commercial [id number] ANSI-Commercial [id number] ANSI-Commercial [id number] ANSI-Commercial [id number]-[id number]-380t-[id number] [id number]-yk27-026n-221m-[id number] ANSI-Commercial [id number]-fqcq-[id number] ANSI-Commercial [id number]-[id number] ob6s7y49-73up-[id number]-[id number] ANSI-Commercial tz3viglq-[id number]-[id number]-1392-580y-[id number] ANSI-Commercial [id number]-fkh7-[id number]-51x0-968d-jvl4-[id number] ANSI-Commercial [id number]-2kv0-[id number] JORGE [facility] [id number] 18 [id number] ANSI-Commercial [id number] [id number]-48ci-[id number] ANSI-Commercial [id number]-689w-de4f-3n70wq64x7dy [id number]-518a-pt6h-[id number] ANSI-Commercial [id number]-[id number] v3f624f6-3490-69os-[id number] ANSI-Commercial [id number]-[id number]-z6ay-15u5-[id number]-[id number] ANSI-Commercial [id number]-[id number]-[id number]-[id number]-[id number] JORGE [id number] SP [id number] 000 ANSI-Commercial [id number]-3h34-[id number]-7e31-[id number] ANSI-Commercial [id number]-[id number]-[id number] [id number]-zy86-5670-cdyj-[id number] ANSI-Commercial 319qjrbo-qh87-6wo6ej53-5zc4-e32d-[id number] 603scnjk-lz82-1yb6nb06-0ja8-e91h-[id number] ANSI-Commercial [id number]-dc39-[id number]-ww10-krr92f56933s ANSI-Commercial [id number]-y2r1-1v6w-[id number] [id number]-[id number] MEDICAID [id number] [facility] ([facility]) [id number] Self [id number] ANSI-Commercial [id number]-g069-8l4c-[id number] ANSI-Commercial [id number]-zt48-bn5y0g7m32h4 [id number] ANSI-Commercial 20dyg9mj-5gh7-3683-[id number] 28chz1vj-8yz9-8169-[id number] ANSI-Commercial [id number]-c5sk-[id number]-[id number] [id number]-n6zk-[id number]-[id number] ANSI-Commercial as95nk5v-8r2h-[id number] nf33xl3z-1z2y-05q4-7m84-28y8rmub4368 ANSI-Commercial [id number]-909a-[id number]-249v-[id number] ANSI-Commercial [id number]-amos-[id number] [id number]-qkl1-6e9j-ysif-[id number] [facility] P [id number] S [id number] ANSI-Commercial [id number] llobd484-4e20-2455-76v6-[id number] ANSI-Commercial [id number]-[id number] ANSI-Commercial 003uc17u-16q3-4kk6-m492-hddrmx33lh0i 502tz75g-76r0-2hd2-c649-rehjgo62yg1k ANSI-Commercial 1860ga43-[id number]-a68v-[id number]-[id number]-w36e-9783zf4vfhm9 [facility] Commercial [id number] Self [id number] ANSI-Commercial [id number]-b2s3-[id number] [id number]-h3k2-8p6e-o3j4-nyih60j19d14 ANSI-Commercial [id number]-67ab-horl-[id number]-68ev-dbpr-[id number] ANSI-Commercial 69vrs7ch-ka89-7z34-[id number]-iu58-8p08-g40v-[id number] [facility] Commercial [id number] Self [id number] ANSI-Commercial [id number] [facility] [id number] SP [id number] ANSI-Commercial [id number]-[id number]-398q-[id number] ANSI-Commercial [id number]-[id number]-[id number] [place] Medigap Part B [id number] Self [id number] [facility] [place] Medicaid [id number] Self [id number] ANSI-Commercial [id number] [facility] [id number] SP [id number] [facility] [place] Medicaid [id number] Self [id number] SELF PAY ONLY [id number] SP [id number] [facility] COMM [id number] S [id number] Problems, Conditions, and Diagnoses Code Display Name Description Problem Type Effective Dates Data Source(s) J45.901 [id number] Exacerbation of asth ma, unspecified asthma severity, unspecified whether persistent Problem 05/12/2019 12:00:00 AM EST eC W1 ([facility]) J45.901 [id number] Exacerbation of asth ma, unspecified asthma severity, unspecified whether persistent Problem 05/12/2019 12:00:00 AM EST eC W1 ([facility]) F33.0 [id number] Major depressive disorder, recurrent, mil d Problem 05/07/2019 12:00:00 AM EST eCW1 ([facility]) F43.10 [id number] Post-traumatic stress disorder, unspecifi ed Problem 05/07/2019 12:00:00 AM EST eCW1 ([facility]) F41.9 [id number] Anxiety disorder, unspecified type Proble m 05/07/2019 12:00:00 AM EST eCW1 ([facility]) F33.0 [id number] Major depressive disorder, recurrent, mil d Problem 05/07/2019 12:00:00 AM EST eCW1 ([facility]) D50.8 [id number] Other iron deficiency anemia Problem 12:00:00 AM EST eCW1 ([facility]) D50.8 [id number] Other iron deficiency anemia Problem 12:00:00 AM EST eCW1 ([facility]) G89.29 [id number] Other chronic pain Problem 04/14/2019 12:00: 00 AM EST eCW1 ([facility]) M54.6 [id number] Pain in thoracic spine Problem 04/14/19 12:00:00 AM EST eCW1 ([facility]) G89.29 73004012 Other chronic pain Problem 04/14/2019 12:00: 00 AM EST eCW1 ([facility]) M54.6 [id number] Pain in thoracic spine Problem 04/14/19 12:00:00 AM EST eCW1 ([facility]) R53.83 Other fatigue Other fatigue Diagnosis 06/10/2019 10:26:14 AM [facility] Surgeries/Procedures Procedure Description Date Indications Data Source(s) PSYTX W PT 45 MINUTES 07/08/2019 12:00:00 AM EDT eCW1 ([facility]) FLOW CYTOMETRY CELL CYCLE/DNA BRADLEY LEUKEMIA / LYMPHOM A PHENOTYPE, PERIPHERAL BLOOD Routine 06/10/2019 9:50 AM EDT 06/10/2019 01:50 :00 PM [facility] REAGENT STRIP/BLOOD GLUCOSE 05/28/2019 12:00:00 AM EDT eCW1 ([facility]) Transitional Care NO CHARGE Visit 05/24/2019 12:00:00 AM EDT eCW1 ([facility]) PSYCH DIAGNOSTIC EVALUATION 05/07/2019 12:00:00 AM EST eCW1 ([facility]) OSTEOPATH MANJ 3-4 REGIONS 04/29/2019 12:00:00 AM EST eCW1 ([facility]) Results ID Date Data Source [id number] 03/31/2020 02:12:00 PM EST [facility] Name Value Range Interpretation Code Description Data Naa rce(s) Supporting Document(s) Glucose [Mass/volume] in Capillary blood by Glucometer 190 mg/dL 70-105 Above high normal [facility]) ID Date Data Source [id number] 03/30/2020 12:00:00 PM EST [facility] Name Value Range Interpretation Code Description Data Naa rce(s) Supporting Document(s) SARS coronavirus 2 RNA [Presence] in Res piratory specimen by URIEL with probe detection NEGATIVE [facility] This lab was ordered by [facility] a nd reported by [facility]. ID Date Data Source [id number] 03/29/2020 10:26:00 AM EST [facility] ([facility]) Name Value Range Interpretation Code Description Data Naa rce(s) Supporting Document(s) IgG subclass 4 [Mass/volume] in Serum Laboratory test result [facility] ([facility]) Alpha 1 antitrypsin [Mass/volume] in Serum or Plasma Laboratory sheree t result [facility] ([facility]) ID Date Data Source [id number] 03/29/2020 10:26:00 AM EST [facility] ([facility]) Name Value Range Interpretation Code Description Data Naa rce(s) Supporting Document(s) Amylase [Enzymatic activity/volume] in Serum or Plasma 41 U/L 25-115 Normal (applies to non-numeric results) [facility] ([facility]) Lipoprotein lipase [Enzymatic activity/volume] in Serum or P lasma 287 U/L 73-393 Normal (applies to non-numeric results) [facility] ([facility]) ID Date Data Source [id number] 03/29/2020 10:26:00 AM EST [facility] ([facility]) Name Value Range Interpretation Code Description Data Naa rce(s) Supporting Document(s) Qlojf-0-Tmevziymneo [Mass/volume] in Serum or Plasma 1.3 ng/mL Normal (applies to non-numeric results) [facility] ([facility]) THE AFP ASSAY IS PERFORMED ON THE Pergunter BY CHEMILUMINESCENCE AND SHOULD NOT BE COMPARED INTERCHANGEABLY WITH OTHER METHODS. IT SHOULD NOT BE USED ALONE A SCREENING TEST OR DIAGNOSIS FOR THE PRESENCE OR ABSENCE OF MALIGNANT DISEASE. THESE RESULTS ARE NOT INTERPRETABLE IN FEMALES. PREDICTIONS OF DISEASE RECURRENCE SHOULD NOT BE BASED SOLELY ON VALUES OBTAINED FROM SERIAL PATIENT SERUM VALUES. Mitochondria Ab [Units/volume] in Serum Laboratory test result [facility]) ID Date Data Source [id number] 03/29/2020 10:26:00 AM EST [facility]) Name Value Range Interpretation Code Description Data Naa rce(s) Supporting Document(s) Prothrombin Time 13.8 s 12.5-14.3 Normal (applies to non-numeric results) [facility] ([facility]) Inr 1.04 Normal (applies to non-numeric resul ts) [facility] ([facility]) THERAPUTIC HUMAN INR VALUES INDICATIONS NORMAL RANGES PROPHYLAXIS/TREATMENT OF: VENOUS THROMBOSIS 2.0-3.0 PULMONARY EMBOLISM 2.0-3.0 PREVENTION OF SYSTEMIC EMBOLISM FROM: TISSUE HEART VALVES 2.0-3.0 ACUTE MYOCARDIAL INFARCTION 2.0-3.0 VALVULAR HEART DISEASE 2.0-3.0 ATRIAL FIBRILLATION 2.0-3.0 MECHANICAL VALVES(HIGH RISK) 2.5-3.5 RECURRENT MYOCARDIAL INFARCTION 2.5-3.5 ID Date Data Source [id number] 03/29/2020 10:26:00 AM [facility]) Name Value Range Interpretation Code Description Data Naa rce(s) Supporting Document(s) Creatinine For GFR 0.85 mg/dL 0.55-1.30 Normal (applies to non -numeric results) [facility] ([facility]) Blood Urea Nitrogen 15 mg/dL 7-18 Normal (applies to non-nume kobe results) [facility]) Glucose, Fasting 403 mg/dL 70-100 Above upper panic limits [facility] ([facility]) Sodium Level 134 meq/L 136-145 Below low normal [facility] ([facility]) Glomerular Filtration Rate Laboratory test result Normal (applies to non- numeric results) [facility]) <content>Units are mL/min/1.73 m2</content>
<content></content>
<content>Chronic Kidney Disease Staging per NKF:</content>
<content></content>
<content>Stage I & II GFR >=60 Normal to Mildly Decreased</content>
<content>Stage III GFR 30- 59 Moderately Decreased</content>
<content>Stage IV GFR 15-29 Severely Decreased</content>
<content>Stage V GFR <15 Very Little GFR Left</content>
<content>ESRD GFR <15 on CURTAIN MENDER</content>
<content></content> Potassium Serum 3.9 meq/L 3.5-5.1 Normal (applies to non-numeric results) [facility] ([facility]) Carbon Dioxide Level 24 meq/L 21-32 Normal (applies to non-num ruth results) [facility] ([facility]) Chloride Level 104 meq/L 98-107 Normal (applies to non-numeric r esults) [facility] ([facility]) Anion Gap 6 meq/L 8-16 Below low [facility] Calcium Level 9.0 mg/dL 8.5-10.1 Normal (applies to non-numeric re sults) [facility] ([facility]) Alt/SGPT 161 U/L 12-78 Above high normal [facility] ([facility]) Ast/Sgot 48 U/L 7-37 Above high normal [facility] Alkaline Phosphatase 213 U/L 45-117 Above high normal [facility] Bilirubin,Total 0.3 mg/dL 0.2-1.0 Normal (applies to non-numeric results) [facility] ([facility]) Total Protein 7.3 GM/DL 6.4-8.2 Normal (applies to non-numeric re sults) [facility] ([facility]) Albumin/Globulin Ratio 1.0 1.2-2.2 Below low normal [facility] ([facility]) Albumin 3.7 GM/DL 3.2-5.2 Normal (applies to non-numeric resul ts) [facility] ([facility]) ID Date Data Source [id number] 03/29/2020 10:26:00 AM EST [facility] ([facility]) Name Value Range Interpretation Code Description Data Naa rce(s) Supporting Document(s) Red Blood Count 4.02 10 4.00-5.40 Normal (applies to non-numeric results) [facility] ([facility]) White Blood Count 7.7 10 4.0-10.0 Normal (applies to non-numeri c results) [facility] ([facility]) Hemoglobin 13.2 g/dL 12.0-15.5 Normal (applies to non-numeric resul ts) [facility]) Mean Corpuscular Hemoglobin 32.8 pg 27.0-33.0 Norm al (applies to non-numeric results) [facility] ([facility]) Hematocrit 41.3 % 36.0-47.0 Normal (applies to non-numeric resul ts) [facility]) Mean Corpuscular Volume 102.7 fl 80.0-96.0 Above high normal [facility] ([facility]) Platelet Count, Automated 248 10 150-450 Normal (applies to non-numeric results) [facility] ([facility]) Mean Corpuscular HGB Conc 32.0 g/dL 32.0-36.5 Normal (applies to non-numeric results) [facility] ([facility]) Red Cell Distribution Width 12.8 % 11.5-14.5 Norm al (applies to non-numeric results) [facility] ([facility]) Neutrophils % 45.3 % 36.0-66.0 Normal (applies to non-numeric re sults) [facility]) Lymph % 41.2 % 24.0-44.0 Normal (applies to non-numeric resul ts) [facility] [place] % 8.2 % 0.0-5.0 Above high normal [facility] Immature Granulocyte % 0.5 % 0-3.0 Normal (applies to non-n umeric results) [facility]) Eos % 3.8 % 0.0-3.0 Above high normal [facility] Baso % 1.0 % 0.0-1.0 Normal (applies to non-numeric resul ts) [facility] ([facility], ) Nucleated Red Blood Cell % 0.0 % 0-0 Normal (applies to n on-numeric results) [facility] ([facility]) Lymph # 3.2 10 1.5-5.0 Normal (applies to non-numeric resul ts) [facility] ([facility]) Neutrophils # 3.5 10 1.5-8.5 Normal (applies to non-numeric re sults) [facility] ([facility]) [place] # 0.6 10 0.0-0.8 Normal (applies to non-numeric resul ts) [facility] ([facility]) Eos # 0.3 10 0.0-0.5 Normal (applies to non-numeric resul ts) [facility] ([facility]) Baso # 0.1 10 0.0-0.2 Normal (applies to non-numeric resul ts) [facility] ([facility]) ID Date Data Source [id number] 06/14/2019 02:14:00 PM [facility] Hematopathology ReportName: ALEKS CRYSTALMRN: [id number] Number: [id number] Date: 06/10/2019 09:50Received Date: 06/11/2019 13:40Physician(s): ZOHAIB AMADOR MD HAGHIR, SHAHANDEH F,MDCopy To:[facility]imen[facility]s) ReceivedA: Blood, Flow Cytometry; Received 2 green [...] Signed Out06/14/2019 InterpretationPERIPHERAL BLOOD: CBC performed at [facility] (06/10/19)WBC 7.7 K/uLRBC *3.98 M/uLHgb *10.9 g/dLHct 37.1 %MCV 93.2 fLMCH 27.4 pgMCHC *29.4 g/dLRDW *23.6 %Platelets 283 K/ulDifferential Count (automated): 0.5 % Immature Azzkcoxxkayk59.7 % Neutrophils 3.1 % Eosinophils 0.7 % Gilvnauyw09.0 % Lymphocytes 8.0 % Monocytes-------100.0 % A few lymphocytes have irregular nuclear contours. Increased anisocytosisand a few elliptocytes and dacryocytes seen. Mildly increased rouleauxformation. Lymphoid Panel: The following markers were assayed: CD45 (gate), CD2, CD3, CD4, CD5, CD7,CD8, CD10, CD11c, CD19, CD20, CD22, CD23, CD25, CD38, CD56, CD57, CD103,[place], Lambda, and FMC7.# events: [id number]: 98%Flow Cytometry Differential (CD45/SSC)Lymphocyte [place]: 43%CD45 dim [place]: 0%Monocyte [place]: 4%Granulocyte [place]: 49%Nucleated/Erythroid [place]: 1%The lymphocyte gate showsB-cells (CD19): 3%[place]/Lambda Ratio: 1.4T- cells (CD3): 82%NK-cells (CD3-/CD56+): 12%CD4/CD8 Ratio: 0.5Results: (expressed as % of lymphocyte gate)T-cell Markers: CD2 = 90, CD3 = 82, CD3/CD4 = 26, CD3/CD8 = 55, CD5 = 80,CD7 = 86, CD3/57 = 14B-cell markers: [place] = 1, Lambda = 1, CD19 = 3, CD20 = 3, CD19/10 = 0,CD19/CD5 = 0, CD38/CD20 = 2, CD22 = 4, CD19/CD23 = 2, FMC7 = 2Light chain as % of B-Cells: CD19/[place] = 35, CD19/Lambda = 26,CD19/CD5/[place] = 1, CD19/CD5/Lambda = 0, CD19/CD10/[place] = 0,CD19/CD10/Lambda = 0CD38 on CD19/5 positive [...] were developed and theirperformance characteristics determined by [facility] Pathology department.They have not been cleared or approved by the [place] Food and DrugAdministration. The FDA has determined that such clearance or approval isnot necessary. Name Value Range Interpretation Code Description Data Naa rce(s) Supporting Document(s) ID Date Data Source [id number] 06/11/2019 02:27:55 PM EDT [facility] Name Value Range Interpretation Code Description Data Naa rce(s) Supporting Document(s) Flow cytometry study [facility] ID Date Data Source Pathology Request For Service 04/29/2019 12:00:00 AM EST eCW 1 ([facility]) Name Value Range Interpretation Code Description Data Naa rce(s) Supporting Document(s) PERIPHERAL SMEAR-PATH REVIEW e CW1 ([facility]) ID Date Data Source TRANSFERRIN 04/29/2019 12:00:00 AM EST eCW1 ([facility]) Name Value Range Interpretation Code Description Data Naa rce(s) Supporting Document(s) 391 200-370 TRANSFERRIN eCW1 ([facility]) ID Date Data Source VITB12 & FOL 04/29/2019 12:00:00 AM EST eCW1 ([facility]) Name Value Range Interpretation Code Description Data Naa rce(s) Supporting Document(s) 507 VITAMIN B12 LEVEL eCW1 ([facility]) 7.3 FOLATE eCW1 ([facility]) ID Date Data Source TOTAL IRON BINDING CAPACIT 04/29/2019 12:00:00 AM EST eCW1 ( [facility]) Name Value Range Interpretation Code Description Data Naa rce(s) Supporting Document(s) 20 50-170 IRON (FE) eCW1 ([facility]) 480 250-450 TOTAL IRON BINDING CAPACI TY eCW1 ([facility]) 4.2 13.2-45.0 PERCENT SATURATION eCW1 ([facility]) ID Date Data Source Reticulocyte Count Sysmex 04/29/2019 12:00:00 AM EST eCW1 ([facility]) Name Value Range Interpretation Code Description Data Naa rce(s) Supporting Document(s) 2.1 0.5-1.5 RETICULOCYTE % eCW1 ([facility]) ID Date Data Source PERIPH SMEAR FOR PATH REVIEW 04/29/2019 12:00:00 AM EST eCW1 ([facility]) Name Value Range Interpretation Code Description Data Naa rce(s) Supporting Document(s) Report SLIDE REVIEW eCW1 ([facility]) PERIPHERAL SMEAR SOURCE eCW1 ([facility]) ID Date Data Source FERRITIN 04/29/2019 12:00:00 AM EST eCW1 ([facility]) Name Value Range Interpretation Code Description Data Naa rce(s) Supporting Document(s) 12 3-252 FERRITIN eCW1 ([facility]) ID Date Data Source CBC with Differential 04/29/2019 12:00:00 AM EST eCW1 ([facility]) Name Value Range Interpretation Code Description Data Naa rce(s) Supporting Document(s) 40.5 24.0-44.0 LYMPH % eCW1 ([facility]) 49.4 36.0-66.0 NEUTROPHILS % eCW1 ([facility]) 6.7 0.0-5.0 MONO % eCW1 ([facility]) 0.6 0.0-1.0 BASO % eCW1 ([facility]) 2.3 0.0-3.0 EOS % eCW1 ([facility]) 0.7 0.0-0.8 MONO # eCW1 ([facility]) 0.3 0.0-0.5 EOS # eCW1 ([facility]) 4.5 1.5-5.0 LYMPH # eCW1 ([facility]) 5.5 1.5-8.5 NEUTROPHILS # eCW1 ([facility]) 0.1 0.0-0.2 BASO # eCW1 ([facility]) 3.93 4.00-5.40 RED BLOOD COUNT eCW1 ([facility]) 12.0 4.0-10.0 WHITE BLOOD COUNT eCW1 ([facility]) 9.7 12.0-15.5 HEMOGLOBIN eCW1 ([facility]) 33.4 36.0-47.0 HEMATOCRIT eCW1 ([facility]) 85.0 80.0-96.0 MEAN CORPUSCULAR VOLUME e CW1 ([facility]) 24.7 27.0-33.0 MEAN CORPUSCULAR HEMOGLOB IN eCW1 ([facility]) 29.0 32.0-36.5 MEAN CORPUSCULAR HGB CONC eCW1 ([facility]) 16.4 11.5-14.5 RED CELL DISTRIBUTION WID TH eCW1 ([facility]) 300 150-450 PLATELET COUNT, AUTOMATED eCW1 ([facility]) ID Date Data Source GAMMA GLUTAMYLTRANSPEPTIDASE 04/14/2019 12:00:00 AM EST eCW1 ([facility]) Name Value Range Interpretation Code Description Data Naa rce(s) Supporting Document(s) 75 5-55 GAMMA GLUTAMYLTRANSPEPTIDASE e CW1 ([facility]) ID Date Data Source VITAMIN D 25-HYDROXY 04/14/2019 12:00:00 AM EST eCW1 ([facility]) Name Value Range Interpretation Code Description Data Naa rce(s) Supporting Document(s) 13.3 30.0-100.0 TOTAL 25(OH) VITAMIN D eC W1 ([facility]) ID Date Data Source PTH INTACT 04/14/2019 12:00:00 AM EST eCW1 ([facility]) Name Value Range Interpretation Code Description Data Naa rce(s) Supporting Document(s) 42.4 18.5-88.0 PTH INTACT eCW1 ([facility]) ID Date Data Source LIVER PROFILE 04/14/2019 12:00:00 AM EST eCW1 ([facility]) Name Value Range Interpretation Code Description Data Naa rce(s) Supporting Document(s) 0.2 0.2-1.0 BILIRUBIN,TOTAL eCW1 ([facility]) 32 7-37 AST/SGOT eCW1 ([facility]) 60 12-78 ALT/SGPT eCW1 ([facility]) < 0.1 0.0-0.2 BILIRUBIN,DIRECT eCW1 ([facility]) 212 45-117 ALKALINE PHOSPHATASE eCW1 ([facility]) 7.8 6.4-8.2 TOTAL PROTEIN eCW1 ([facility]) 3.7 3.2-5.2 ALBUMIN eCW1 ([facility]) 0.90 1.00-1.93 ALBUMIN/GLOBULIN RATIO eCW1 ([facility]) ID Date Data Source Basic Metabolic Profile (BMP) 04/14/2019 12:00:00 AM EST eCW 1 ([facility]) Name Value Range Interpretation Code Description Data Naa rce(s) Supporting Document(s) 15 7-18 BLOOD UREA NITROGEN eCW1 ([facility]) 75 70-100 GLUCOSE, FASTING eCW1 ([facility]) 0.76 0.55-1.30 CREATININE FOR GFR eCW1 ([facility]) > 60.0 >58 GLOMERULAR FILTRATION RATE eCW 1 ([facility]) 107 98-107 CHLORIDE LEVEL eCW1 ([facility]) 4.1 3.5-5.1 POTASSIUM SERUM eCW1 ([facility]) 140 136-145 SODIUM LEVEL eCW1 ([facility]) 9.1 8.5-10.1 CALCIUM LEVEL eCW1 ([facility]) 26 21-32 CARBON DIOXIDE LEVEL eCW1 ([facility]) ID Date Data Source [id number] 04/14/2019 12:00:00 AM EST eCW1 ([facility]) Name Value Range Interpretation Code Description Data Naa rce(s) Supporting Document(s) Microalbumin/Creatinine [Mass Ratio] in Urine 114.0 CREATININE, URINE eCW1 ([facility]) Albumin/Creatinine [Mass Ratio] in Urine 6.7 MALB URINE SIEMENS eCW1 ([facility]) Microalbumin/Creatinine [Ratio] in Urine 5.8 0.0-30.0 MERE/CREAT RATIO eCW1 ([facility]) ID Date Data Source LIPID PANEL (CARDIAC RISK) 04/14/2019 12:00:00 AM EST eCW1 ( [facility]) Name Value Range Interpretation Code Description Data Naa rce(s) Supporting Document(s) Triglyceride [Mass/volume] in Serum or Plasma by calculation 156 <150 TRIGLYCERIDES LEVEL eCW1 ([facility]) Cholesterol [Moles/volume] in Serum or Plasma 205 <200 CHOLESTEROL LEVEL eCW1 ([facility]) Cholesterol in LDL [Mass/volume] in Serum or Plasma by calculation 131 <100 LDL CHOLESTEROL eCW1 ([facility]) Cholesterol in HDL [Moles/volume] in Serum or Plasma 43 >40 HDL CHOLESTEROL eCW1 ([facility]) 4.767 <5 CHOLESTEROL RISK RATIO eCW1 ([facility]) 162 NON-HDL-C eCW1 ([facility]) ID Date Data Source [id number] 04/14/2019 12:00:00 AM EST eCW1 ([facility]) Name Value Range Interpretation Code Description Data Naa rce(s) Supporting Document(s) Hemoglobin A1c/Hemoglobin.total in Blood 10.4 HEMOGLOBIN A1c eCW1 ([facility]) ID Date Data Source [id number] 04/07/2019 01:00:23 PM EST [facility] Vital SignsBlood Pressure: 144/88 Patient History Medical History:Diabetes - Type IIHypertensionNeuropathyPTSDFibomymiagiaAnxietyAlpha 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 AsthmaBlood clot in lungs- 2019Social/Personal History: Smoking Status: former smokerCurrent Problems: Teeth extraction (ICD-525.10) (YFE04-E78.499)Dental caries (ICD-521.00) (ICD10- K02.9)Current Medications: * ELIQUIS [...] DMD) Chart Notes:mac (Apr 07 2019 2:56PM): [facility](-). CC: none. Reviewed Xrays. Exam: no caries [...] during this visit, including review of any fwic-zwh-txyywzy medications, herbal therapies, and/or supplements.Allergy ReviewAllergy List was reviewed and/or updated during this visit. Name Value Range Interpretation Code Description Data Naa rce(s) Supporting Document(s) ID Date Data Source [id number] 04/01/2019 10:41:53 AM [facility] Current Problems: Teeth extraction (ICD- 525.10) (WDF19-D21.499)Dental caries (ICD-521.00) (KVE00-G21.9)Current Medications: * AMLODIPINE * CANNABIDIOL * TRULICITY [...] EST Former Smoker completed Former Smoker eCW1 ([facility]) Smoking 12/16/2019 12:00:00 AM EDT Former Smoker completed Former Smoker eCW1 ([facility]) Smoking 12/16/2019 12:00:00 AM EDT Former Smoker completed Former Smoker eCW1 ([facility]) Smoking 12/16/2019 12:00:00 AM EDT Former Smoker completed Former Smoker eCW1 ([facility]) Smoking 12/16/2019 12:00:00 AM EDT Former Smoker completed Former Smoker eCW1 ([facility]) Smoking 12/16/2019 12:00:00 AM EDT Former Smoker completed Former Smoker eCW1 ([facility]) Smoking 12/16/2019 12:00:00 AM EDT Former Smoker completed Former Smoker eCW1 ([facility]) Smoking 12/16/2019 12:00:00 AM EDT Former Smoker completed Former Smoker eCW1 ([facility]) Smoking 07/25/2019 12:00:00 AM EDT Former Smoker completed Former Smoker eCW1 ([facility]) Smoking 04/16/2019 12:00:00 AM EST Patient is a former smoker completed Patient is a former smoker [facility] ([facility]) Vital Signs ID Date Data Source UNK Name Value Range Interpretation Code Description Data Source(s) Body surface area Derived from formula 1.99 m2 1.99 m2 [facility] ([facility]) Body weight 93.895 kg 93.895 kg [facility] ([facility]) [place] body weight 120 [lb_av] 120 [facility]_av[facility] Body mass index (BMI) [Ratio] 35.5 kg/m2 35.5 k g/m2 [facility] ([facility]) Body weight 207.00 [lb_av] 207.00 [lb_av] [facility] Body height 64 [in_i] 64 [in_i] [facility] ([facility]) 5'4" Diastolic blood pressure 109 mm[Hg] 109 mm[Hg] [facility] ([facility]) Systolic blood pressure 156 mm[Hg] 156 mm[Hg] M EDENT ([facility], ) Diastolic blood pressure 84 mm[Hg] 84 mm[Hg] eCW1 ([facility]) Systolic blood pressure 115 mm[Hg] 115 mm[Hg] e CW1 ([facility]) Body temperature 97.8 [degF] 97.8 [degF] eCW1 ( [facility]) Respiratory rate 18 /min 18 /min eCW1 ([facility]) Heart rate 108 /min 108 /min eCW1 ([facility]) Body mass index (BMI) [Ratio] 35.87 kg/m2 35.87 kg/m2 eCW1 ([facility]) Body height 64 [in_i] 64 [in_i] eCW1 ([facility]) Body weight 209 [lb_av] 209 [lb_av] eCW1 ([facility]) Body temperature 97.6 [degF] 97.6 [degF] MEDENT ([facility], ) Respiratory rate 18 /min 18 /min MEDENT ( [facility], ) Diastolic blood pressure 94 mm[Hg] 94 mm[Hg] MEDENT ([facility], ) Systolic blood pressure 154 mm[Hg] 154 [facility] Body mass index (BMI) [Ratio] 36.0 kg/m2 36.0 k g/m2 MEDENT ([facility] ) Body weight 210.00 [lb_av] 210.00 [lb_av] MEDEN T ([facility] ) Body height 64 [in_i] 64 [in_i] MEDENT ([facility]) 5'4" Body temperature 97.6 [degF] 97.6 [degF] eCW1 ( [facility]) Respiratory rate 20 /min 20 /min eCW1 ([facility]) Heart rate 134 /min 134 /min eCW1 ([facility]) Body mass index (BMI) [Ratio] 36.04 kg/m2 36.04 kg/m2 eCW1 ([facility]) Body height 64 [in_us] 64 [in_us] eCW1 ([facility]) Body weight Measured 210 [lb_av] 210 [lb_av] eC W1 ([facility]) Diastolic blood pressure 90 mm[Hg] 90 mm[Hg] eCW1 ([facility]) Systolic blood pressure 121 mm[Hg] 121 mm[Hg] e CW1 ([facility]) Diastolic blood pressure 86 mm[Hg] 86 mm[Hg] eCW1 ([facility]) Systolic blood pressure 129 mm[Hg] 129 mm[Hg] e CW1 ([facility]) Body temperature 97.8 [degF] 97.8 [degF] eCW1 ( [facility]) Respiratory rate 18 /min 18 /min eCW1 ([facility]) Heart rate 99 /min 99 /min eCW1 ([facility]) Body mass index (BMI) [Ratio] 36.04 kg/m2 36.04 kg/m2 eCW1 ([facility]) Body height 64 [in_us] 64 [in_us] eCW1 ([facility]) Body weight Measured 210 [lb_av] 210 [lb_av] eC W1 ([facility]) Diastolic blood pressure 91 mm[Hg] 91 mm[Hg] eCW1 ([facility]) Systolic blood pressure 132 mm[Hg] 132 mm[Hg] e CW1 ([facility]) Body temperature 98.7 [degF] 98.7 [degF] eCW1 ( [facility]) Respiratory rate 18 /min 18 /min eCW1 ([facility]) Heart rate 94 /min 94 /min eCW1 ([facility]) Body mass index (BMI) [Ratio] 36.21 kg/m2 36.21 kg/m2 eCW1 ([facility]) Body height 64 [in_us] 64 [in_us] eCW1 ([facility]) Body weight Measured 211 [lb_av] 211 [lb_av] eC W1 ([facility]) Diastolic blood pressure 86 mm[Hg] 86 mm[Hg] eCW1 ([facility]) Systolic blood pressure 146 mm[Hg] 146 mm[Hg] e CW1 ([facility]) Body temperature 97.7 [degF] 97.7 [degF] eCW1 ( [facility]) Respiratory rate 18 /min 18 /min eCW1 ([facility]) Heart rate 102 /min 102 /min eCW1 ([facility]) Body mass index (BMI) [Ratio] 36.04 kg/m2 36.04 kg/m2 eCW1 ([facility]) Body height 64 [in_us] 64 [in_us] eCW1 ([facility]) Body weight Measured 210 [lb_av] 210 [lb_av] eC W1 ([facility]) Body mass index (BMI) [Ratio] 36.04 kg/m2 36.04 kg/m2 eCW1 ([facility]) Body height 64 [in_us] 64 [in_us] eCW1 ([facility]) Body weight Measured 210 [lb_av] 210 [lb_av] eC W1 ([facility]) Diastolic blood pressure 100 mm[Hg] 100 mm[Hg] eCW1 ([facility]) Systolic blood pressure 146 mm[Hg] 146 mm[Hg] e CW1 ([facility]) Body temperature 98.0 [degF] 98.0 [degF] eCW1 ( [facility]) Respiratory rate 18 /min 18 /min eCW1 ([facility]) Heart rate 96 /min 96 /min eCW1 ([facility]) Diastolic blood pressure 85 mm[Hg] 85 mm[Hg] eCW1 ([facility]) Systolic blood pressure 135 mm[Hg] 135 mm[Hg] e CW1 ([facility]) Body temperature 97.7 [degF] 97.7 [degF] eCW1 ( [facility]) Respiratory rate 18 /min 18 /min eCW1 ([facility]) Heart rate 100 /min 100 /min eCW1 ([facility]) Body mass index (BMI) [Ratio] 36.39 kg/m2 36.39 kg/m2 eCW1 ([facility]) Body height 64 [in_us] 64 [in_us] eCW1 ([facility]) Body weight Measured 212 [lb_av] 212 [lb_av] eC W1 ([facility]) Diastolic blood pressure 88 mm[Hg] 88 mm[Hg] eCW1 ([facility]) Systolic blood pressure 127 mm[Hg] 127 mm[Hg] e CW1 ([facility]) Body temperature 99.0 [degF] 99.0 [degF] eCW1 ( [facility]) Respiratory rate 16 /min 16 /min eCW1 ([facility]) Heart rate 83 /min 83 /min eCW1 ([facility]) Body mass index (BMI) [Ratio] 35.53 kg/m2 35.53 kg/m2 eCW1 ([facility]) Body height 64 [in_us] 64 [in_us] eCW1 ([facility]) Body weight Measured 207 [lb_av] 207 [lb_av] eC W1 ([facility]) Patient Treatment Plan of Care Planned Activity Planned Date Details Description Data Source (s) Steglatro 5 MG 04/04/2020 12:00:00 AM EST eCW1 ([facility]) Pen Otis 31G X 5 MM 04/03/2020 12:00:00 AM EST eCW1 ([facility]) Oseltamivir 75 MG Oral Capsule [Tamiflu] 04/03/2020 12:00:00 AM EST eCW1 ([facility]) Acetaminophen 325 MG / Hydrocodone Bitartrate 5 MG Ora l Tablet 04/03/2020 12:00:00 AM EST eCW1 ([facility]) Glucometer 01/10/2020 12:00:00 AM EDT e CW1 ([facility]) Lancets - 01/10/2020 12:00:00 AM EDT e CW1 ([facility]) Glucometer 01/10/2020 12:00:00 AM EDT e CW1 ([facility]) Lancets - 01/10/2020 12:00:00 AM EDT e CW1 ([facility]) Glucometer 01/10/2020 12:00:00 AM EDT e CW1 ([facility]) Lancets - 01/10/2020 12:00:00 AM EDT e CW1 ([facility]) Glucometer 01/10/2020 12:00:00 AM EDT e CW1 ([facility]) Lancets - 01/10/2020 12:00:00 AM EDT e CW1 ([facility]) Glucometer 01/10/2020 12:00:00 AM EDT e CW1 ([facility]) Lancets - 01/10/2020 12:00:00 AM EDT e CW1 ([facility]) Glucometer 01/10/2020 12:00:00 AM EDT e CW1 ([facility]) Lancets - 01/10/2020 12:00:00 AM EDT e CW1 ([facility]) Acetaminophen 325 MG / Hydrocodone Bitartrate 5 MG Ora l Tablet 12/29/2019 12:00:00 AM EDT eCW1 ([facility]) Acetaminophen 325 MG / Hydrocodone Bitartrate 5 MG Ora l Tablet 12/29/2019 12:00:00 AM EDT eCW1 ([facility]) Acetaminophen 325 MG / Hydrocodone Bitartrate 5 MG Ora l Tablet 12/29/2019 12:00:00 AM EDT eCW1 ([facility]) Acetaminophen 325 MG / Hydrocodone Bitartrate 5 MG Ora l Tablet 12/29/2019 12:00:00 AM EDT eCW1 ([facility]) Acetaminophen 325 MG / Hydrocodone Bitartrate 5 MG Ora l Tablet 12/29/2019 12:00:00 AM EDT eCW1 ([facility]) Acetaminophen 325 MG / Hydrocodone Bitartrate 5 MG Ora l Tablet 12/29/2019 12:00:00 AM EDT eCW1 ([facility]) Acetaminophen 325 MG / Hydrocodone Bitartrate 5 MG Ora l Tablet 12/29/2019 12:00:00 AM EDT eCW1 ([facility]) Fluconazole 150 MG Oral Tablet [Diflucan] 06/09/2019 12:00:00 AM ED T eCW1 ([facility]) PrednisoLONE 15 MG/5ML 05/12/2019 12:00:00 AM EST eCW1 ([facility]) Doxycycline Monohydrate 100 MG Oral Capsule 05/12/2019 12:00:00 AM EST eCW1 ([facility]) Iron 325 (65 Fe) MG 05/05/2019 12:00:00 AM EST eCW1 ([facility]) Ondansetron 4 MG Oral Tablet [Zofran] 04/21/2019 12:00:00 AM EST eCW1 ([facility]) tramadol hydrochloride 50 MG Oral Tablet 04/14/2019 12:00:00 AM EST eCW1 ([facility]) Levothyroxine Sodium 0.025 MG Oral Tablet 03/29/2019 12:00:00 AM ES T eCW1 ([facility])
[2020-04-21] MEDS ORDERED: oxyCODONE 5MG TAB PO ONE (06:45)
[2020-04-21] MEDS ORDERED: OXYC-517 PO (06:50)
[2020-04-21 07:40] VITALS: BP 141/96
--- NOTE | 2020-04-22 09:45 | ED PDOC ---
Post-Departure Follow-Up dr arroyo faxed formal report of ct abd/p for fu Kika Villela MD Apr 22, 2020 09:45
== END 2020-04-21 08:06 | disposition home or self-care (01) ==
LOC: M ED 18:37
DX: R10.9 Unspecified abdominal pain (principal); E11.9 Type 2 diabetes mellitus without complications; K21.9 Gastro-esophageal reflux disease without esophagitis; J45.909 Unspecified asthma, uncomplicated; Z86.711 Personal history of pulmonary embolism; Z79.01 Long term (current) use of anticoagulants; Z79.4 Long term (current) use of insulin; Z79.899 Other long term (current) drug therapy; Z88.8 Allergy status to other drugs, medicaments and biological substances
CPT/HCPCS: 74177; 76705; 80048; 80076; 81001; 83690; 85025; 96374; 96375; 99284; J2270; J2405; Q9967

== ENCOUNTER 2020-05-06 15:36 | Emergency (ER) | payer OTHER ==
[~2020-05-06 15:36] MED LIST changes: +OXYC-517 PO
[2020-05-06] MEDS ORDERED: PERCOCET 5MG/325MG TAB PO ONE (15:45)
[2020-05-06] MEDS ORDERED: IBUPROFEN 400MG TAB PO ONE (15:45)
--- NOTE | 2020-05-06 16:14 | REP ---
INDICATION: fall. COMPARISON: 09/13/2019 TECHNIQUE: Axial soft tissue and bone windows reviewed with coronal and sagittal bone reconstructions per our trauma protocol. FINDINGS: Slight reduction in the normal lordosis the as on the previous study. The dens and anterior arch of C1 show normal appearance on that sagittal reconstruction vertebral body heights and disc space heights are intact. No compression deformity or avulsion posterior elements including the spinous processes, lamina, pedicles, facets, transverse processes and the transverse foramina were symmetric and unremarkable. See no definite central canal stenosis or foraminal encroachment. The medial clavicles, upper ribs and thoracic vertebral bodies seen as well as the lung apices are also clear. Craniocervical junction intact the dens shows normal relationship to the lateral masses on the coronal reconstructions. No torticollis. IMPRESSION: Negative CT cervical spine for compression fracture, spinal or foraminal stenosis, malalignment, posterior element abnormality or other acute finding. <Electronically signed by Virgilio Otero > 05/06/20 [id number]
--- NOTE | 2020-05-06 16:19 | REP ---
INDICATION: fall. COMPARISON: Bone windows from CT angiogram chest 02/04/2019. TECHNIQUE: Axial soft tissue and bone windows through the thoracic spine with coronal and sagittal reconstructions. [id number] from C7-T1 through T12-L1. FINDINGS: There is no abnormal kyphosis or scoliosis on sagittal and coronal reconstructions. Small marginal osteophytes are seen at multiple levels, normal for age. No compression deformity or destructive lesion seen posterior elements including spinous processes, lamina, transverse processes, pedicles, facets and posterior rib articulations are unremarkable. No pleural effusion or pneumothorax noted in the posterior lung jara. Cervicothoracic and thoracolumbar junction aligns normally. No spinal or foraminal stenosis. IMPRESSION: 1. Negative CT thoracic spine for compression fracture, posterior element fracture, malalignment, spinal or foraminal stenosis. Small marginal osteophytes seen normal for age. Posterior rib articulations and adjacent lungs intact. <Electronically signed by Virgilio Otero > 05/06/20 [id number]
[2020-05-06] MEDS ORDERED: STEG5TAB (16:24)
--- OUTSIDE RECORDS SUMMARY | 2020-05-06 16:24 | CCD ---
Author Author [facility] Organization 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 Active confir med 15018649 Problem Migraine without status migr ainosus, not intractable, unspecified migraine type G43.909 Active confirmed 52073429 Problem Tension headache G44.209 Active confirmed 39 9897392 Problem 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 confirmed 4 21755031 Problem Nightmares REM-sleep type F51.5 Active confirmed 804687968 Problem Severe persistent asthma, unspecified whether complicated J45.50 Active confirmed 579037391 Problem PTSD (post-traumatic stress disorder) F43.10 Ac tive confirmed 23986097 Problem Bilateral low back pain with right-sided sciatica, unspecified chronicity M54.41 Active confirmed 776682378 Problem Insomnia, unspecified type G47.00 Active confirmed 379936032 Problem WANDY (obstructive sleep apnea) G47.33 Active confirm ed 14278529 Problem Arm paresthesia, left R20.2 Active confirmed 05265016 Problem Sinusitis, unspecified chronicity, unspecified location J32.9 Active confirmed 16376905 Problem Hyperlipidemia, unspecified hyperlipidemia type E7 8.5 Active confirmed 91575631 Problem Port-a-cath in place Z95.828 Active confirmed 149589763 Problem Psoriasis L40.9 Active confirmed 8766004 Problem Leukocytosis, unspecified type D72.829 Active confi rmed 775131353 Problem Pulmonary embolism, unspecif ied chronicity, unspecified pulmonary embolism type, unspecified whether acute cor pulmonale present I 26.99 Active confirmed 14861614 Problem Pain in thoracic spine M54.6 Active confirmed 387216009098593 Problem Other iron deficiency anemia D50.8 Active confirme d 69130848 Problem Type 2 diabetes mellitus without complications E11 .9 Active confirmed 09674426 Problem Exacerbation of asthma, unsp ecified asthma severity, unspecified whether persistent J45.901 Active confirmed 594724190 Problem Hypothyroidism, unspecified type E03.9 Active conf irmed 39085670 Problem senior care current use of insulin Z79.4 Active conf irmed 007734760 Problem Other chronic pain G89.29 Active confirmed 8 2009677 Problem Anxiety disorder, unspecified type F41.9 Activ e confirmed 268799789 Problem Post-traumatic stress disorder, unspecified F43.10 Active confirmed 79433209 Problem Major depressive disorder, recurrent, mild F33.0 Active confirmed 778310426 ALLERGIES Allergen (clinical drug ingredient) Drug/Non Drug Allergy do cumented on EMR Reaction Allergy Type Onset Date Status PredniSONE Hives Drug Allergy Active metformin Metformin HCl(ND Code:[address]-21) kidneys Drug Vijay rgy Active meclizine Meclizine HCl(ND Code:[address]-93) Anaphylaxis Drug All ergy Active ENCOUNTERS from 1972 to 2020-04-25 Encounter Location Date Provider Diagnosis [facility] [address] [place] [address], Oswaldo Anderson IMMUNIZATIONS Vaccine Route Administration Date [...] Administered Depo-Medrol 40mg (Methylpredisolone Acetate) IM Intramuscular [facility] 2017 Administered Pneumococcal Adult 0.5mL (Pneumovax [...] Language: Question Answer Notes Languages spoken: Latvian Rastafarian: Question Answer Notes Rastafarian No amish beliefs that would impact health care. Sexual [...] Notes Start Da te End Date Status Ventolin HFA 108 (90 Base) MCG/ACT 2 puffs as needed I nhalation every 4 hrs for 30 days Active Protonix 40 MG 1 tablet Orally twice a day for 90 Active Symbicort 160-4.5 MCG/ACT 2 puffs Inhalation Twice a day for 30 days Active Tramadol HCl 50 MG 1 tablet as needed Orally Once a day for 5 da ys Aug, Not-Taking Lancets - as directed BID Dx: E11.9 for 30 days Dec, 020 Active Prazosin HCl 1 MG 3 capsule Orally before bedtime for 30 days Apr, Not-Taking Humulin R 100 UNIT/ML per sliding scale Injection QID before meals and before bedtime PRN; MDD: 100 units May, Acti ve Steglatro 5 MG 1 tablet Orally Once a day for 90 days 2020 Active Cholecalciferol 1000 UNIT 1 capsule Orally Once a day for 30 days Active Zofran 4 MG 1 tablet Orally every 6 hours as needed for 10 days Apr, Not-Taking Cetirizine HCl 10 MG 1 tablet Orally Once a day for 30 Not-Taking Trulicity 0.75 MG/0.5ML as directed Subcutaneous weekly for 28 Not-Taking Topiramate 50 MG 1 tablet Orally Twice a day for 90 Active PrednisoLONE 15 MG/5ML 15 ml Orally as directed tapeing dose Apr, Not-Taking Gabapentin 600 MG 1 tablet Orally tid for 90 Active Glucometer as directed Daily Dx: E11.9 for 999 days Dec Active Eliquis 5 MG 1 tab Orally once daily Active Lancets - as directed bid for 30 days Active Blood Glucose Test - as directed In Vitro bid for 30 days Active Diflucan 150 MG 1 tablet Orally Once for 1 days May, Not-Taking Docusate Sodium 100 MG 1 capsule as needed Orally Once a day for 30 Active Probiotic - 1 capsule Orally before bedtime Not-Taking Triamcinolone Acetonide 0.1 % 1 application to affecte d area Externally Twice a day to right elbow for 7 days Mar, Ac tive Ketorolac Tromethamine 10 MG 1 tablet with food or mil k as needed Orally every 6 hrs for 5 day(s) Not-Taking Sumatriptan Succinate 50 MG 1 tablet as needed Orally Twice a day for 30 Active Ipratropium-Albuterol 0.5-2.5 (3) MG/3ML 3 ml as neede d Inhalation every 4 hours for SOB May, Active Hydrocodone-Acetaminophen 5-325 MG 1 tablet as needed Orally every 6 hrs for severe pain for 28 days Mar, Active AmLODIPine Besylate 10 MG 1 tablet Orally Once a day for 30 day(s) Active Pen [place]oca as directed bid for 30 days Active Tamiflu 75 MG 1 capsule Orally Daily for 7 days Mar, Active Iron 325 (65 Fe) MG 1 tablet Orally Once a day for Active Lisinopril 10 MG 1 tablet Orally Once a day for 90 Active BusPIRone HCl 30 MG 1 tablet orally twice daily for 90 days Active Artificial Tear 1 gtt Ophthalmic twice daily as needed for dry eyes Active Diflucan 150 MG 1 tablet Orally once, can re peat at 48 hours if no improvement for 2 days Apr, Active Levothyroxine Sodium 25 MCG 1 tablet in the morning on an empty stomach Orally Once a day for 90 Active Tizanidine HCl 4 MG 1 tablet as needed Orally Three times a day for 3 0 Active Singulair 10 MG 1 tablet Orally Once a day for 90 Active Venlafaxine HCl ER 150 MG Take 1 capsule every morning for 90 Active Polyethylene Glycol - as directed dissolve 17 gram s of powder in luquid and drink once daily for constipation May, Active Doxycycline Monohydrate 100 MG 1 capsule Orally bid for 7 days Apr, Not-Taking Pen [place] 31G X 5 MM as directed Daily for 30 days 2020 Active Basaglar KwikPen 100 UNIT/ML 80 units subcutaneously twice daily for 30 days Active PROCEDURES No Information RESULTS No Results REASON FOR VISIT medication MEDICAL (GENERAL) HISTORY Type Description Date Medical [...] 05/01/2018 Hospitalization History Asthma 09/25/18 Hospitalization History [facility] asthma 05/19/2019- 0 Hospitalization History [facility] pancreatitis 12/04/19- 0 Goals Section No Information Health Concerns No Information MEDICAL EQUIPMENT No Information MENTAL STATUS No Information FUNCTIONAL STATUS No Information ASSESSMENTS No Information PLAN OF TREATMENT Medication Medication Name Sig Start Date Stop Date Pen [place]oca 31G X 5 MM as directed Daily for 30 days Mar, Basaglar KwikPen 100 UNIT/ML 80 units subcutaneously twice daily for 30 days Diflucan 150 MG 1 tablet Orally once, can re peat at 48 hours if no improvement for 2 days Apr, Hydrocodone-Acetaminophen 5-325 MG 1 tablet as needed Orally every 6 hrs for severe pain for 28 days Mar, Cholecalciferol 1000 UNIT 1 capsule Orally Once a day for 30 day s Tizanidine HCl 4 MG 1 tablet as needed Orally Three times a day for 30 Tamiflu 75 MG 1 capsule Orally Daily for 7 days Mar, Steglatro 5 MG 1 tablet Orally Once a day for 90 days Mar, Sumatriptan Succinate 50 MG 1 tablet as needed Orally Twice a da y for 30 Insurance Providers Payer Name Payer Address Payer Phone Insured Name Patient Relati onship to Insured Coverage Start Date Coverage End Date [employer] [address]PT [address] [facility] [phone] PATY CRYSTAL self
--- OUTSIDE RECORDS SUMMARY | 2020-05-06 16:24 | CCD ---
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 Name Role Phone Oswaldo Anderson Unavailable PROBLEMS Type Condition ICD9-CM Code NLP66-EQ Code Onset Dates Condition S tatus W/U Status Risk SNOMED Code Notes Problem Depression, unspecified depression type F32.9 Active confirmed 27863690 Problem Anxiety F41.9 Active confirmed 58092198 Problem Hypertension, unspecified type I10 Active confir med 66407702 Problem Gastroesophageal reflux disease without esophagitis K21.9 Active confirmed 717928216 Problem 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 Active confir med 46040761 Problem Migraine without status migr ainosus, not intractable, unspecified migraine type G43.909 Active confirmed 40073031 Problem Tension headache G44.209 Active confirmed 39 8592478 Problem 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 confirmed 4 04762492 Problem Nightmares REM-sleep type F51.5 Active confirmed 146607728 Problem Severe persistent asthma, unspecified whether complicated J45.50 Active confirmed 005180665 Problem PTSD (post-traumatic stress disorder) F43.10 Ac tive confirmed 08628099 Problem Bilateral low back pain with right-sided sciatica, unspecified chronicity M54.41 Active confirmed 678403835 Problem Insomnia, unspecified type G47.00 Active confirmed 470905778 Problem WANDY (obstructive sleep apnea) G47.33 Active confirm ed 93455103 Problem Arm paresthesia, left R20.2 Active confirmed 08931178 Problem Sinusitis, unspecified chronicity, unspecified location J32.9 Active confirmed 78810254 Problem Hyperlipidemia, unspecified hyperlipidemia type E7 8.5 Active confirmed 23977598 Problem Port-a-cath in place Z95.828 Active confirmed 825466008 Problem Psoriasis L40.9 Active confirmed 7319194 Problem Leukocytosis, unspecified type D72.829 Active confi rmed 914350148 Problem Pulmonary embolism, unspecif ied chronicity, unspecified pulmonary embolism type, unspecified whether acute cor pulmonale present I 26.99 Active confirmed 62919890 Problem Pain in thoracic spine M54.6 Active confirmed 204717631502746 Problem Other iron deficiency anemia D50.8 Active confirme d 57641078 Problem Type 2 diabetes mellitus without complications E11 .9 Active confirmed 46490330 Problem Exacerbation of asthma, unsp ecified asthma severity, unspecified whether persistent J45.901 Active confirmed 130171826 Problem Hypothyroidism, unspecified type E03.9 Active conf irmed 98842868 Problem snf current use of insulin Z79.4 Active conf irmed 208036215 Problem Other chronic pain G89.29 Active confirmed 8 3446603 Problem Anxiety disorder, unspecified type F41.9 Activ e confirmed 764958040 Problem Post-traumatic stress disorder, unspecified F43.10 Active confirmed 26436381 Problem Major depressive disorder, recurrent, mild F33.0 Active confirmed 552032984 ALLERGIES Allergen (clinical drug ingredient) Drug/Non Drug Allergy do cumented on EMR Reaction Allergy Type Onset Date Status PredniSONE Hives Drug Allergy Active metformin Metformin HCl(ND Code:[address]-99) kidneys Drug Vijay rgy Active meclizine Meclizine HCl(ND Code:[address]-67) Anaphylaxis Drug All ergy Active ENCOUNTERS from 1972 to 2020-04-24 Encounter Location Date Provider Diagnosis [facility] [address] [place] [address] Mar, Oswaldo Anderson Type 2 diabetes mellitus without complic ations E11.9 ; Hypothyroidism, unspecified type E03.9 ; Right upper quadrant abdominal pain R10.11 ; Exposure to the flu Z20.828 and Low vitamin D level R79.89 IMMUNIZATIONS Vaccine Route Administration Date Status Influenza [...] Administered Depo-Medrol 40mg (Methylpredisolone Acetate) IM Intramuscular [facility] 2017 Administered Pneumococcal Adult 0.5mL (Pneumovax 23) [...] Education Language: Question Answer Notes Languages spoken: Lithuanian Sabianism: Question Answer Notes Sabianism No tenriism beliefs that would impact health care. Sexual [...] No Information VITAL SIGNS Weight 209 lbs Mar, Height 64 in Mar, BMI 35.87 kg/m2 Mar, Heart Rate 95 /min Mar, Respiratory Rate 18 /min Mar, Temperature 97.2 degrees Fahrenheit Mar, Oximetry 99% Mar, Blood pressure systolic 128 mm Hg Mar, Blood pressure diastolic 90 mm Hg Mar, MEDICATIONS Medication SIG (Take, Route, Frequency, Duration) [...] Orally Twice a day for 30 Active Hydrocodone-Acetaminophen 5-325 MG 1 tablet as needed Orally every 6 hrs for severe pain for 28 days Mar, Active Levothyroxine Sodium 25 MCG 1 tablet in the morning on an empty stomach Orally Once a day for 90 Active BusPIRone HCl 30 MG 1 tablet orally twice daily for 90 days Active Tizanidine HCl 4 MG 1 tablet as needed Orally Three times a day for 3 0 Active AmLODIPine Besylate 10 MG 1 tablet Orally Once a day for 30 day(s) Active Pen [place] as directed bid for 30 days Active Prazosin HCl 1 MG 3 capsule Orally before bedtime for 30 days Apr, Not-Taking Humulin R 100 UNIT/ML per sliding scale Injection QID before meals and before bedtime PRN; MDD: 100 units May, Acti ve Tamiflu 75 MG 1 capsule Orally Daily for 7 days Mar, Active Lancets - as directed BID Dx: [...] day for 5 da ys Aug, Not-Taking Pen [place] 31G X 5 MM as directed Daily for 30 days 2020 Active Basaglar KwikPen 100 UNIT/ML 80 units subcutaneously twice daily for 30 days Active PROCEDURES No Information RESULTS No Results REASON FOR VISIT FOLLOW UP MEDICAL (GENERAL) HISTORY Type Description Date Medical [...] History pneumonia 09/14/2017- 8 Hospitalization History COPD 10/19/2017-8/8/201 8 Hospitalization History Asthma 12/17/2017-2017 Hospitalization History major depressive disorder 04/28/2018- 05/01/2018 Hospitalization History Asthma 09/25/18 Hospitalization History [facility] asthma 05/19/2019- 0 Hospitalization History [facility] pancreatitis 12/04/19- 0 Goals Section No Information Health Concerns No Information MEDICAL EQUIPMENT No Information MENTAL STATUS No Information FUNCTIONAL STATUS No Information ASSESSMENTS Encounter Date Diagnosis Assessment Notes Treatment Notes Treatm ent Clinical Notes Mar, Type 2 diabetes mellitus without complications ( ICD-10 - E11.9) Order labs to monitor glucose control and screen diabetic nephropathy. Send refills. Start Jardiance to see if help with control. Mar, Hypothyroidism, unspecified type (ICD-10 - E03.9 ) Check lab to monitor. Mar, Right upper quadrant abdominal pain (ICD-10 - R1 0.11) #: [id number] hydrocodone-acetaminophen 5-325 mg tablet Oswaldo Dennis [facility] Continue pain medication for severe pain as needed. Continue follow up with specialist. Mar, Exposure to the flu (ICD-10 - Z20.828) Notes exposure. Start prophylaxis. If symptoms develop call office. Can continue prophylaxis as needed. Mar, Low vitamin D level (ICD-10 - R79.89) Continue supplement. Refill sent. Check lab. PLAN OF TREATMENT Medication Medication Name Sig Start Date Stop Date Pen [place] 31G X 5 MM as directed Daily for 30 days Mar, Basaglar KwikPen 100 UNIT/ML 80 units subcutaneously twice daily for 30 days Tamiflu 75 MG 1 capsule Orally Daily for 7 days Mar, Hydrocodone-Acetaminophen 5-325 MG 1 tablet as needed Orally every 6 hrs for severe pain for 28 days Mar, Sumatriptan Succinate 50 MG 1 tablet as needed Orally Twice a da y for 30 Tizanidine HCl 4 MG 1 tablet as needed Orally Three times a day for 30 Cholecalciferol 1000 UNIT 1 capsule Orally Once a day for 30 day s Steglatro 5 MG 1 tablet Orally Once a day for 90 days Mar, 2 021 Treatment Notes Assessment Notes Clinical Notes Type 2 diabetes mellitus without complications Order labs to monitor glucose control and screen diabetic nephropathy. Send refills.Start Jardiance to see if help with control. Hypothyroidism, unspecified type Check l ab to monitor. Right upper quadrant abdominal pain #: 1 [id number] hydrocodone-acetaminophen 5-325 mg tablet [facility] for severe pain as needed. Continue follow up with specialist. Exposure to the flu Notes exposure. Star t prophylaxis. If symptoms develop call office. Can continue prophylaxis as needed. Low vitamin D level Continue supplement. Refill sent. Check lab. Treatment Notes Test Name Order Date HEMOGLOBIN A1c 2020-04-03 Comprehensive Metabolic Profile (CMP) 2020-04-03 CBC with Differential 2020-04-03 MICROALBUMIN RANDOM 2020-04-03 LIPID PANEL (CARDIAC RISK) 2020-04-03 TSH 2020-04-03 VITAMIN D 25-HYDROXY 2020-04-03 Next Appt Details 1- 2 mths Reason: Insurance Providers Payer Name Payer Address Payer Phone Insured Name Patient Relati onship to Insured Coverage Start Date Coverage End Date [facility] [employer] [facility] DEPT [address] [facility] [phone] PATY CRYSTAL
--- OUTSIDE RECORDS SUMMARY | 2020-05-06 16:25 | CCD ---
Author Author [facility] Organization [facility] Address Unknown Phone Unavailable Care Team Providers Care Chip Silo Tender Name Role Phone PETROFF, JOSE PA Unavailable Unavailable PETROFF, JOSE PA Unavailable Unavailable PETROFF, JOSE PA Unavailable Unavailable PETROFF, JOSE PA Unavailable Unavailable PETROFF, JOSE PA Unavailable Unavailable PETROFF, JOSE PA Unavailable Unavailable PETROFF, JOSE PA Unavailable Unavailable PETROFF, JOSE PA Unavailable Unavailable OZDEN, NURI Unavailable Unavailable OZDEN, NURI Unavailable Unavailable OZDEN, NURI Unavailable Unavailable OZDEN, NURI Unavailable Unavailable OZDEN, NURI Unavailable Unavailable OZDEN, NURI Unavailable Unavailable OZDEN, NURI Unavailable Unavailable OZDEN, NURI Unavailable Unavailable OZDEN, NURI Unavailable Unavailable OZDEN, NURI Unavailable Unavailable OZDEN, NURI Unavailable Unavailable OZDEN, NURI Unavailable Unavailable OZDEN, NURI Unavailable Unavailable OZDEN, NURI Unavailable Unavailable OZDEN, NURI Unavailable Unavailable OZDEN, NURI Unavailable Unavailable OZDEN, NURI Unavailable Unavailable OZDEN, NURI Unavailable Unavailable OZDEN, NURI Unavailable Unavailable OZDEN, NURI Unavailable Unavailable OZDEN, NURI Unavailable Unavailable OZDEN, NURI Unavailable Unavailable OZDEN, NURI Unavailable Unavailable OZDEN, NURI Unavailable Unavailable OZDEN, NURI Unavailable Unavailable OZDEN, NURI Unavailable Unavailable OZDEN, NURI Unavailable Unavailable OZDEN, NURI Unavailable Unavailable OZDEN, NURI Unavailable Unavailable OZDEN, NURI Unavailable Unavailable OZDEN, NURI Unavailable Unavailable OZDEN, NURI Unavailable Unavailable OZDEN, NURI Unavailable Unavailable OZDEN, NURI Unavailable Unavailable OZDEN, NURI Unavailable Unavailable OZDEN, NURI Unavailable Unavailable OZDEN, NURI Unavailable Unavailable OZDEN, NURI Unavailable Unavailable OZDEN, NURI Unavailable Unavailable OZDEN, NURI Unavailable Unavailable OZDEN, NURI Unavailable Unavailable OZDEN, NURI Unavailable Unavailable OZDEN, NURI Unavailable Unavailable OZDEN, NURI Unavailable Unavailable OZDEN, NURI Unavailable Unavailable OZDEN, NURI Unavailable Unavailable OZDEN, NURI Unavailable Unavailable OZDEN, NURI Unavailable Unavailable OZDEN, NURI Unavailable Unavailable Zohaib Amador MD Unavailable Unavailable [...] Unavailable Dille, E Lisa DDS Unavailable Unavailable REINDL, DES CHENEY [...] REINDL, DES CHENEY Unavailable Unavailable REINDL, DES CHNEEY Unavailable Unavailable REINDL, DES CHENEY Unavailable Unavailable [...] Unavailable Unavailable REINDL, DES CHENEY Unavailable Unavailable NC, SRASO Unavailable Unavailable Re-disclosure Warning The records [...] is protected by Article 27-F of the [facility] Public Health law. If you continue you may have access to information: Regarding HIV / AIDS; Provided by facilities licensed or operated by the [facility] Office of Mental Health; or Provided by the [facility] Office for People With Developmental Disabilities. If such information is present, then the following [facility] mandated warning applies: This information has been [...] law may result in a fine or care home sentence or both. A general authorization for the release of medical or other information is NOT sufficient authorization for further disc losure. Allergies and Adverse Reactions Type Description Substance Reaction Status Data Source(s ) Drug allergy Meclizine HCl Meclizine Anaphylaxis Active eCW1 ([facility]) metformin Metformin HCl Metformin kidneys Active eCW1 ([facility]) PredniSONE PredniSONE PredniSONE Hives Active eCW1 ([facility]) PredniSONE PredniSONE PredniSONE Hives Active eCW1 ([facility]) PredniSONE PredniSONE PredniSONE Hives Active eCW1 ([facility]) PredniSONE PredniSONE PredniSONE Hives Active eCW1 ([facility]) PredniSONE PredniSONE PredniSONE Hives Active eCW1 ([facility]) PredniSONE PredniSONE Prednisone 10 MG Oral Tablet Hives Active eCW1 ([facility]) PredniSONE PredniSONE Prednisone 10 MG Oral Tablet Hives Active eCW1 ([facility]) Family History Family Member Name Family Member Gender Family Member Status Date o f Status Description Data Source(s) Unknown Unknown Problem MEDENT ([facility]) Encounters Encounter Providers Location Date Indications Data Source(s ) Outpatient Attender: KIYAZulma SHAYLAAJAY 10/02/2020 12:00:[address] [facility] [place] [address] [facility] [place] [address] 04/25/2020 12:00:00 AM EST eCW1 ([facility]) [place]patient [address] [facility] [place] [address] 04/03/2020 12:00:00 AM EST eCW1 ([facility]) [place] [address] [facility] [place] [address] 04/03/2020 12:00:00 AM EST [facility]1 [facility]) Outpatient Attender: DSE Matthew/José Antonio/Karl/Masha gilliam 03/29/2020 08:00:00 AM EST MEDENT ([facility]) [place] [address] [facility] [place] [address] 02/04/2020 12:00:00 AM EST eCW1 ([facility]) Unknown [address] [facility] [place] [address] 02/04/2020 12:00:00 AM EST eCW1 ([facility]) [place] [address] [facility] [place] [address] 02/03/2020 12:00:00 AM EST eCW1 ([facility]) Unknown [address] [facility] [place] [address] 02/03/2020 12:00:00 AM EST [facility]CW1 [facility] [place] [address] [facility] [place] [address] 01/10/2020 12:00:00 AM EDT eCW1 ([facility]) Unknown [address] [facility] [place] [address] 12/29/2019 12:00:00 AM EDT eCW1 ([facility]) Outpatient [address] [facility] [place] [address] 12/16/2019 12:00:00 AM EDT eCW1 ([facility]) Outpatient Attender: Lisa BOWMAN 08/30/2019 12:55:01 P M EDT [facility] Outpatient Referrer: Bjorn Tapia MD 08/17/2019 05:50:00 AM EDT [facility] [address] [place] [address] 08/11/2019 12:00:00 AM EDT eCW1 ([facility]) Outpatient Referrer: Bjorn Tapia MD 08/05/2019 06:01:00 AM EDT [facility] [address] [place] [address] 08/05/2019 12:00:00 AM EDT eCW1 ([facility]) Outpatient Attender: Lisa Neda HARO 08/03/2019 11:33:01 A M EDT [facility] [address] [place] [address] 08/02/2019 12:00:00 AM EDT eCW1 ([facility]) [facility] [address] [place] [address] 07/25/2019 12:00:00 AM EDT eCW1 (Critical access hospital) ([facility]) [facility] Scheduled Visit [address] [place] [address] 07/22/2019 12:00:00 AM EDT eCW1 ([facility]) Outpatient Referrer: Bjorn Tapia MD 07/20/2019 05:35:00 AM EDT [facility] [address] [place] [address] 07/08/2019 12:00:00 AM EDT [facility]CW1 ([facility]) [facility] [address] [facility] [address] 06/30/2019 12:00:00 AM EDT [facility]CW1 ([facility] [address] [place] [address] 06/25/2019 12:00:00 AM EDT eCW1 ([facility]) [facility] [address] [facility] [place] [address] 06/21/2019 12:00:00 AM EDT eCW1 ([facility]) Outpatient Attender: Zohaib Gagnon DAdmitter: Zohaib Amador MDReferrer: Zohaib Amador MD 06/10/2019 12:00:00 AM EDT Other fatigue [facility] Other fatigue [facility] [address] [place] [address], [place] [address] 06/09/2019 12:00:00 AM EDT eCW1 ([facility]) [facility]/07/[facility] 09:16:00 A M EDT [facility] [address] [place] [address], [place] [address] 05/28/2019 12:00:00 AM EDT eCW1 ([facility]) [address] [address] 05/25/2019 12:00:00 AM EDT eCW1 ([facility]) Outpatient Referrer: Bjorn Tapia MD 05/24/2019 12:29:00 PM EDT [facility] [address] [place] [address], [place] [address] 05/24/2019 12:00:00 AM EDT eCW1 ([facility]) Outpatient Referrer: Bjorn Tapia MD 05/20/2019 03:10:00 PM EST [facility] [address] [facility] [address] 05/19/2019 12:00:00 AM EST eCW1 ([facility] [address] [place] [address], [place] [address] 05/19/2019 12:00:00 AM EST eCW1 ([facility]) [facility] [address] [place] [address], [place] [address] 05/12/2019 12:00:00 AM EST eCW1 ([facility] [address] [place] [address] 05/07/2019 12:00:00 AM EST eCW1 ([facility]) [facility] [address] [facility] [address] 05/05/2019 12:00:00 AM EST eCW1 ([facility]) [facility] [address] [facility] [address] 04/29/2019 12:00:00 AM EST eCW1 ([facility]) [facility] [address] [facility] [address] 04/21/2019 12:00:00 AM EST eCW1 ([facility]) [facility] [address] [facility] [address] 04/21/2019 12:00:00 AM EST eCW1 ([facility]) [facility] [address] [facility] [address] 04/14/2019 12:00:00 AM EST eCW1 ([facility]) [facility]: [facility] 04/07/2019 02:57:00 P M [facility] Outpatient [facility]: [facility] 04/07/2019 01:01:00 P M [facility] [address] [facility] [address] 04/06/2019 12:00:00 AM EST eCW1 ([facility]) Outpatient Attender: Lisa BOWMAN 04/01/2019 12:37:01 P M [facility] Outpatient [facility]: [facility] 04/01/2019 11:51:00 A M [facility] Outpatient Attender: [facility] 04/01/2019 11:49:00 AM [facility] Outpatient Attender: [facility] 04/01/2019 11:48:00 AM [facility] Outpatient Attender: [facility] 04/01/2019 11:44:59 AM [facility] 04/01/2019 10:41:00 AM [facility] 04/01/2019 10:39:02 AM [facility] 04/01/2019 10:38:00 AM [facility] [address] [facility] [address] 03/29/2019 12:00:00 AM EST eCW1 ([facility]) Emergency Attender: JOSE HOANG 2018 04:26:00 PM EDT - 01/09/2019 04:48:00 PM [facility] Patient discharged. Medications Medication Brand Name Start Date Product Form Dose Route Admi nistrative Instructions Pharmacy Instructions Status Indications Reaction Description Data Source(s) Fluconazole 150 MG Oral Tablet [Diflucan] Diflucan 150 MG Di flucan 150 MG 04/25/2020 12:00:00 AM EST 1.0 {tablet} active Diflucan 150 MG eCW1 ([facility]) Steglatro 5 MG Steglatro 5 MG 04/04/2020 12:00:00 AM EST 1.0 {ta blet} active Steglatro 5 MG eCW1 ([facility]) Steglatro 5 MG Steglatro 5 MG 04/04/2020 12:00:00 AM EST 1.0 {ta blet} active Steglatro 5 MG eCW1 ([facility]) Steglatro 5 MG Steglatro 5 MG 04/04/2020 12:00:00 AM EST 1.0 {ta blet} active Steglatro 5 MG eCW1 ([facility]) Pen Elsie 31G X 5 MM Pen Elsie 31G X 5 MM 04/03/2020 12:00:[address] active Pen Elsie 31G X 5 MM eC W1 ([facility]) Acetaminophen 325 MG / Hydrocodone Yoli trate 5 MG Oral Tablet Hydrocodone- Acetaminophen 5-325 MG Hydrocodone-Acetaminophen 5-325 MG 04/03/2020 12:00:00 AM EST 1.0 {tablet_as_needed} active Hydrocodone-Acetaminophen 5-325 MG eCW1 ([facility]) Oseltamivir 75 MG Oral Capsule [Tamiflu] Tamiflu 75 MG Tamif jaron 75 MG 04/03/2020 12:00:00 AM EST 1.0 {capsule} active T amiflu 75 MG eCW1 ([facility]) Oseltamivir 75 MG Oral Capsule [Tamiflu] Tamiflu 75 MG Tamif jaron 75 MG 04/03/2020 12:00:00 AM EST 1.0 {capsule} active T amiflu 75 MG eCW1 ([facility]) Oseltamivir 75 MG Oral Capsule [Tamiflu] Tamiflu 75 MG Tamif jaron 75 MG 04/03/2020 12:00:00 AM EST 1.0 {capsule} active T amiflu 75 MG eCW1 ([facility]) Acetaminophen 325 MG / Hydrocodone Yoli trate 5 MG Oral Tablet Hydrocodone- Acetaminophen 5-325 MG Hydrocodone-Acetaminophen 5-325 MG 04/03/2020 12:00:00 AM EST 1.0 {tablet_as_needed} active Hydrocodone-Acetaminophen 5-325 MG eCW1 ([facility]) Pen Elsie 31G X 5 MM Pen Elsie 31G X 5 MM 04/03/2020 12:00:[address] active Pen Elsie 31G X 5 MM eC W1 ([facility]) Acetaminophen 325 MG / Hydrocodone Yoli trate 5 MG Oral Tablet Hydrocodone- Acetaminophen 5-325 MG Hydrocodone-Acetaminophen 5-325 MG 04/03/2020 12:00:00 AM EST 1.0 {tablet_as_needed} active Hydrocodone-Acetaminophen 5-325 MG eCW1 ([facility]) Pen Elsie 31G X 5 MM Pen Elsie 31G X 5 MM 04/03/2020 12:00:[address] active Pen Elsie 31G X 5 MM eC W1 ([facility]) Ursodiol 500 MG Oral Tablet Ursodiol 03/29/2020 12:00:00 AM EST ORAL active MEDENT ([facility] ) Glucometer UNK 01/10/2020 12:00:00 AM EDT active Glucometer eCW1 ([facility]) Lancets - Lancets - 01/10/2020 12:00:00 AM EDT [place] Lancets - eCW1 ([facility]) Lancets - Lancets - 01/10/2020 12:00:00 AM EDT [place] Lancets - eCW1 ([facility]) Lancets - Lancets - 01/10/2020 12:00:00 AM EDT [place] Lancets - eCW1 ([facility]) Lancets - Lancets - 01/10/2020 12:00:00 AM EDT [place] Lancets - eCW1 ([facility]) Lancets - Lancets - 01/10/2020 12:00:00 AM EDT [place] Lancets - eCW1 ([facility]) Glucometer UNK 01/10/2020 12:00:00 AM EDT active Glucometer eCW1 ([facility]) Lancets - Lancets - 01/10/2020 12:00:00 AM EDT [place] Lancets - eCW1 ([facility]) Glucometer UNK 01/10/2020 12:00:00 AM EDT active Glucometer eCW1 ([facility]) Lancets - Lancets - 01/10/2020 12:00:00 AM EDT [place] Lancets - eCW1 ([facility]) Glucometer UNK 01/10/2020 12:00:00 AM EDT active Glucometer eCW1 ([facility]) Glucometer UNK 01/10/2020 12:00:00 AM EDT active Glucometer eCW1 ([facility]) Lancets - Lancets - 01/10/2020 12:00:00 AM EDT [place] Lancets - eCW1 ([facility]) Glucometer UNK 01/10/2020 12:00:00 AM EDT active Glucometer eCW1 ([facility]) Glucometer UNK 01/10/2020 12:00:00 AM EDT active Glucometer eCW1 ([facility]) Glucometer UNK 01/10/2020 12:00:00 AM EDT active Glucometer eCW1 ([facility]) Glucometer UNK 01/10/2020 12:00:00 AM EDT active Glucometer eCW1 ([facility]) Lancets - Lancets - 01/10/2020 12:00:00 AM EDT [place] Lancets - eCW1 ([facility]) Acetaminophen 325 MG / Hydrocodone Yoli trate 5 MG Oral Tablet Hydrocodone- Acetaminophen 5-325 MG Hydrocodone-Acetaminophen 5-325 MG 12/29/2019 12:00:00 AM EDT 1.0 {tablet_as_needed} active Hydrocodone-Acetaminophen 5-325 MG eCW1 ([facility]) Acetaminophen 325 MG / Hydrocodone Yoli trate 5 MG Oral Tablet Hydrocodone- Acetaminophen 5-325 MG Hydrocodone-Acetaminophen 5-325 MG 12/29/2019 12:00:00 AM EDT 1.0 {tablet_as_needed} active Hydrocodone-Acetaminophen 5-325 MG eCW1 ([facility]) Acetaminophen 325 MG / Hydrocodone Yoli trate 5 MG Oral Tablet Hydrocodone- Acetaminophen 5-325 MG Hydrocodone-Acetaminophen 5-325 MG 12/29/2019 12:00:00 AM EDT 1.0 {tablet_as_needed} active Hydrocodone-Acetaminophen 5-325 MG eCW1 ([facility]) Acetaminophen 325 MG / Hydrocodone Yoli trate 5 MG Oral Tablet Hydrocodone- Acetaminophen 5-325 MG Hydrocodone-Acetaminophen 5-325 MG 12/29/2019 12:00:00 AM EDT 1.0 {tablet_as_needed} active Hydrocodone-Acetaminophen 5-325 MG eCW1 ([facility]) Acetaminophen 325 MG / Hydrocodone Yoli trate 5 MG Oral Tablet Hydrocodone- Acetaminophen 5-325 MG Hydrocodone-Acetaminophen 5-325 MG 12/29/2019 12:00:00 AM EDT 1.0 {tablet_as_needed} active Hydrocodone-Acetaminophen 5-325 MG eCW1 ([facility]) Acetaminophen 325 MG / Hydrocodone Yoli trate 5 MG Oral Tablet Hydrocodone- Acetaminophen 5-325 MG Hydrocodone-Acetaminophen 5-325 MG 12/29/2019 12:00:00 AM EDT 1.0 {tablet_as_needed} active Hydrocodone-Acetaminophen 5-325 MG eCW1 ([facility]) Acetaminophen 325 MG / Hydrocodone Yoli trate 5 MG Oral Tablet Hydrocodone- Acetaminophen 5-325 MG Hydrocodone-Acetaminophen 5-325 MG 12/29/2019 12:00:00 AM EDT 1.0 {tablet_as_needed} active Hydrocodone-Acetaminophen 5-325 MG eCW1 ([facility]) tramadol hydrochloride 50 MG Oral Tablet Tramadol HCL 09/16/2019 12:00:00 AM EDT active [facility] ([facility] ) tramadol hydrochloride 50 MG Oral Tablet Tramadol HCl 50 MG Tramadol HCl 50 MG 09/14/2019 12:00:00 AM EDT 1.0 {tablet_as_needed} suspended Tramadol HCl 50 MG eCW1 ([facility]) tramadol hydrochloride 50 MG Oral Tablet Tramadol HCl 50 MG Tramadol HCl 50 MG 09/14/2019 12:00:00 AM EDT 1.0 {tablet_as_needed} active Tramadol HCl 50 MG eCW1 ([facility]) tramadol hydrochloride 50 MG Oral Tablet Tramadol HCl 50 MG Tramadol HCl 50 MG 09/14/2019 12:00:00 AM EDT 1.0 {tablet_as_needed} active Tramadol HCl 50 MG eCW1 ([facility]) tramadol hydrochloride 50 MG Oral Tablet Tramadol HCl 50 MG Tramadol HCl 50 MG 09/14/2019 12:00:00 AM EDT 1.0 {tablet_as_needed} active Tramadol HCl 50 MG eCW1 ([facility]) tramadol hydrochloride 50 MG Oral Tablet Tramadol HCl 50 MG Tramadol HCl 50 MG 09/14/2019 12:00:00 AM EDT 1.0 {tablet_as_needed} suspended Tramadol HCl 50 MG eCW1 ([facility]) tramadol hydrochloride 50 MG Oral Tablet Tramadol HCl 50 MG Tramadol HCl 50 MG 09/14/2019 12:00:00 AM EDT 1.0 {tablet_as_needed} active Tramadol HCl 50 MG eCW1 ([facility]) tramadol hydrochloride 50 MG Oral Tablet Tramadol HCl 50 MG Tramadol HCl 50 MG 09/14/2019 12:00:00 AM EDT 1.0 {tablet_as_needed} active Tramadol HCl 50 MG eCW1 ([facility]) tramadol hydrochloride 50 MG Oral Tablet Tramadol HCl 50 MG Tramadol HCl 50 MG 09/14/2019 12:00:00 AM EDT 1.0 {tablet_as_needed} active Tramadol HCl 50 MG eCW1 ([facility]) tramadol hydrochloride 50 MG Oral Tablet Tramadol HCl 50 MG Tramadol HCl 50 MG 09/14/2019 12:00:00 AM EDT 1.0 {tablet_as_needed} active Tramadol HCl 50 MG eCW1 ([facility]) tramadol hydrochloride 50 MG Oral Tablet Tramadol HCl 50 MG Tramadol HCl 50 MG 09/14/2019 12:00:00 AM EDT 1.0 {tablet_as_needed} suspended Tramadol HCl 50 MG eCW1 ([facility]) Fluconazole 150 MG Oral Tablet [Diflucan] Diflucan 150 MG Di flucan 150 MG 06/09/2019 12:00:00 AM EDT 1.0 {tablet} suspended Diflucan 150 MG eCW1 ([facility]) Fluconazole 150 MG Oral Tablet [Diflucan] Diflucan 150 MG Di flucan 150 MG 06/09/2019 12:00:00 AM EDT 1.0 {tablet} suspended Diflucan 150 MG eCW1 ([facility]) Fluconazole 150 MG Oral Tablet [Diflucan] Diflucan 150 MG Di flucan 150 MG 06/09/2019 12:00:00 AM EDT suspended 1 tablet eCW1 ([facility]) Fluconazole 150 MG Oral Tablet [Diflucan] Diflucan 150 MG Di flucan 150 MG 06/09/2019 12:00:00 AM EDT 1.0 {tablet} suspended Diflucan 150 MG eCW1 ([facility]) Fluconazole 150 MG Oral Tablet [Diflucan] Diflucan 150 MG Di flucan 150 MG 06/09/2019 12:00:00 AM EDT 1.0 {tablet} suspended Diflucan 150 MG eCW1 ([facility]) Fluconazole 150 MG Oral Tablet [Diflucan] Diflucan 150 MG Di flucan 150 MG 06/09/2019 12:00:00 AM EDT 1.0 {tablet} suspended Diflucan 150 MG eCW1 ([facility]) Fluconazole 150 MG Oral Tablet [Diflucan] Diflucan 150 MG Di flucan 150 MG 06/09/2019 12:00:00 AM EDT 1.0 {tablet} suspended Diflucan 150 MG eCW1 ([facility]) Fluconazole 150 MG Oral Tablet [Diflucan] Diflucan 150 MG Di flucan 150 MG 06/09/2019 12:00:00 AM EDT 1.0 {tablet} suspended Diflucan 150 MG eCW1 ([facility]) Fluconazole 150 MG Oral Tablet [Diflucan] Diflucan 150 MG Di flucan 150 MG 06/09/2019 12:00:00 AM EDT 1.0 {tablet} suspended Diflucan 150 MG eCW1 ([facility]) Fluconazole 150 MG Oral Tablet [Diflucan] Diflucan 150 MG Di flucan 150 MG 06/09/2019 12:00:00 AM EDT active 1 tablet eCW1 ([facility]) Fluconazole 150 MG Oral Tablet [Diflucan] Diflucan 150 MG Di flucan 150 MG 06/09/2019 12:00:00 AM EDT 1.0 {tablet} suspended Diflucan 150 MG eCW1 ([facility]) Fluconazole 150 MG Oral Tablet [Diflucan] Diflucan 150 MG Di flucan 150 MG 06/09/2019 12:00:00 AM EDT 1.0 {tablet} suspended Diflucan 150 MG eCW1 ([facility]) Fluconazole 150 MG Oral Tablet [Diflucan] Diflucan 150 MG Di flucan 150 MG 06/09/2019 12:00:00 AM EDT 1.0 {tablet} suspended Diflucan 150 MG eCW1 ([facility]) Polyethylene Glycol - Polyethylene Glycol - 05/21/2019 12:00:00 AM EST active Polyethylene Glycol - eCW1 ( [facility]) Polyethylene Glycol - Polyethylene Glycol - 05/21/2019 12:00:00 AM EST active Polyethylene Glycol - eCW1 ( [facility]) Polyethylene Glycol - Polyethylene Glycol - 05/21/2019 12:00:00 AM EST active as directed eCW1 ([facility]) Albuterol 0.833 MG/ML / Ipratropium Brom clotilde 0.167 MG/ML Inhalant Solution Ipratropium-Albuterol 0.5-2.5 (3) MG/3ML Ipratropium-Albuterol 0.5-2.5 (3) MG/3ML 05/21/2019 12:00:00 AM EST active 3 ml as needed eCW1 ([facility]) Albuterol 0.833 MG/ML / Ipratropium Brom clotilde 0.167 MG/ML Inhalant Solution Ipratropium-Albuterol 0.5-2.5 (3) MG/3ML Ipratropium-Albuterol 0.5-2.5 (3) MG/3ML 05/21/2019 12:00:00 AM EST 3.0 {ml_as_needed} active Ipratropium-Albuterol 0.5-2.5 (3) MG/3ML eCW1 ([facility]) Polyethylene Glycol - Polyethylene Glycol - 05/21/2019 12:00:00 AM EST active Polyethylene Glycol - eCW1 ( [facility]) Albuterol 0.833 MG/ML / Ipratropium Brom clotilde 0.167 MG/ML Inhalant Solution Ipratropium-Albuterol 0.5-2.5 (3) MG/3ML Ipratropium-Albuterol 0.5-2.5 (3) MG/3ML 05/21/2019 12:00:00 AM EST 3.0 {ml_as_needed} active Ipratropium-Albuterol 0.5-2.5 (3) MG/3ML eCW1 ([facility]) Albuterol 0.833 MG/ML / Ipratropium Brom clotilde 0.167 MG/ML Inhalant Solution Ipratropium-Albuterol 0.5-2.5 (3) MG/3ML Ipratropium-Albuterol 0.5-2.5 (3) MG/3ML 05/21/2019 12:00:00 AM EST active 3 ml as needed eCW1 ([facility]) Polyethylene Glycol - Polyethylene Glycol - 05/21/2019 12:00:00 AM EST active Polyethylene Glycol - eCW1 ( [facility] [facility] Albuterol 0.833 MG/ML / Ipratropium Brom clotilde 0.167 MG/ML Inhalant Solution Ipratropium-Albuterol 0.5-2.5 (3) MG/3ML Ipratropium-Albuterol 0.5-2.5 (3) MG/3ML 05/21/2019 12:00:00 AM EST 3.0 {ml_as_needed} active Ipratropium-Albuterol 0.5-2.5 (3) MG/3ML eCW1 ([facility]) Albuterol 0.833 MG/ML / Ipratropium Brom clotilde 0.167 MG/ML Inhalant Solution Ipratropium-Albuterol 0.5-2.5 (3) MG/3ML Ipratropium-Albuterol 0.5-2.5 (3) MG/3ML 05/21/2019 12:00:00 AM EST 3.0 {ml_as_needed} active Ipratropium-Albuterol 0.5-2.5 (3) MG/3ML eCW1 ([facility]) Albuterol 0.833 MG/ML / Ipratropium Brom clotilde 0.167 MG/ML Inhalant Solution Ipratropium-Albuterol 0.5-2.5 (3) MG/3ML Ipratropium-Albuterol 0.5-2.5 (3) MG/3ML 05/21/2019 12:00:00 AM EST 3.0 {ml_as_needed} active Ipratropium-Albuterol 0.5-2.5 (3) MG/3ML eCW1 ([facility]) Polyethylene Glycol - Polyethylene Glycol - 05/21/2019 12:00:00 AM EST active as directed eCW1 ([facility]) Polyethylene Glycol - Polyethylene Glycol - 05/21/2019 12:00:00 AM EST active Polyethylene Glycol - eCW1 ( [facility]) Polyethylene Glycol - Polyethylene Glycol - 05/21/2019 12:00:00 AM EST active Polyethylene Glycol - eCW1 ( [facility]) Polyethylene Glycol - Polyethylene Glycol - 05/21/2019 12:00:00 AM EST active Polyethylene Glycol - eCW1 ( [facility]) Polyethylene Glycol - Polyethylene Glycol - 05/21/2019 12:00:00 AM EST active as directed eCW1 ([facility]) Albuterol 0.833 MG/ML / Ipratropium Brom clotilde 0.167 MG/ML Inhalant Solution Ipratropium-Albuterol 0.5-2.5 (3) MG/3ML Ipratropium-Albuterol 0.5-2.5 (3) MG/3ML 05/21/2019 12:00:00 AM EST 3.0 {ml_as_needed} active Ipratropium-Albuterol 0.5-2.5 (3) MG/3ML eCW1 ([facility]) Polyethylene Glycol - Polyethylene Glycol - 05/21/2019 12:00:00 AM EST active Polyethylene Glycol - eCW1 ( [facility]) Albuterol 0.833 MG/ML / Ipratropium Brom clotilde 0.167 MG/ML Inhalant Solution Ipratropium-Albuterol 0.5-2.5 (3) MG/3ML Ipratropium-Albuterol 0.5-2.5 (3) MG/3ML 05/21/2019 12:00:00 AM EST 3.0 {ml_as_needed} active Ipratropium-Albuterol 0.5-2.5 (3) MG/3ML eCW1 ([facility]) Polyethylene Glycol - Polyethylene Glycol - 05/21/2019 12:00:00 AM EST active Polyethylene Glycol - eCW1 ( [facility]) Albuterol 0.833 MG/ML / Ipratropium Brom clotilde 0.167 MG/ML Inhalant Solution Ipratropium-Albuterol 0.5-2.5 (3) MG/3ML Ipratropium-Albuterol 0.5-2.5 (3) MG/3ML 05/21/2019 12:00:00 AM EST 3.0 {ml_as_needed} active Ipratropium-Albuterol 0.5-2.5 (3) MG/3ML eCW1 ([facility]) Albuterol 0.833 MG/ML / Ipratropium Brom clotilde 0.167 MG/ML Inhalant Solution Ipratropium-Albuterol 0.5-2.5 (3) MG/3ML Ipratropium-Albuterol 0.5-2.5 (3) MG/3ML 05/21/2019 12:00:00 AM EST active 3 ml as needed eCW1 ([facility]) Albuterol 0.833 MG/ML / Ipratropium Brom clotilde 0.167 MG/ML Inhalant Solution Ipratropium-Albuterol 0.5-2.5 (3) MG/3ML Ipratropium-Albuterol 0.5-2.5 (3) MG/3ML 05/21/2019 12:00:00 AM EST 3.0 {ml_as_needed} active Ipratropium-Albuterol 0.5-2.5 (3) MG/3ML eCW1 ([facility]) Albuterol 0.833 MG/ML / Ipratropium Brom clotilde 0.167 MG/ML Inhalant Solution Ipratropium-Albuterol 0.5-2.5 (3) MG/3ML Ipratropium-Albuterol 0.5-2.5 (3) MG/3ML 05/21/2019 12:00:00 AM EST 3.0 {ml_as_needed} active Ipratropium-Albuterol 0.5-2.5 (3) MG/3ML eCW1 ([facility]) Albuterol 0.833 MG/ML / Ipratropium Brom clotilde 0.167 MG/ML Inhalant Solution Ipratropium-Albuterol 0.5-2.5 (3) MG/3ML Ipratropium-Albuterol 0.5-2.5 (3) MG/3ML 05/21/2019 12:00:00 AM EST 3.0 {ml_as_needed} active Ipratropium-Albuterol 0.5-2.5 (3) MG/3ML eCW1 ([facility]) Polyethylene Glycol - Polyethylene Glycol - 05/21/2019 12:00:00 AM EST active Polyethylene Glycol - eCW1 ( [facility]) Polyethylene Glycol - Polyethylene Glycol - 05/21/2019 12:00:00 AM EST active Polyethylene Glycol - eCW1 ( [facility]) Doxycycline Monohydrate 100 MG Oral Capsule Doxycycline [place] hydrate 100 MG 05/12/2019 12:00:00 AM EST suspended 1 capsule eCW1 ([facility]) Doxycycline Monohydrate 100 MG Oral Capsule Doxycycline [place] hydrate 100 MG 05/12/2019 12:00:00 AM EST 1.0 {capsule} suspend ed Doxycycline Monohydrate 100 MG eCW1 ([facility]) Doxycycline Monohydrate 100 MG Oral Capsule Doxycycline [place] hydrate 100 MG 05/12/2019 12:00:00 AM EST 1.0 {capsule} suspend ed Doxycycline Monohydrate 100 MG eCW1 ([facility]) Doxycycline Monohydrate 100 MG Oral Capsule Doxycycline [place] hydrate 100 MG 05/12/2019 12:00:00 AM EST active 1 capsule eCW1 ([facility]) Doxycycline Monohydrate 100 MG Oral Capsule Doxycycline [place] hydrate 100 MG 05/12/2019 12:00:00 AM EST 1.0 {capsule} suspend ed Doxycycline Monohydrate 100 MG eCW1 ([facility]) Doxycycline Monohydrate 100 MG Oral Capsule Doxycycline [place] hydrate 100 MG 05/12/2019 12:00:00 AM EST 1.0 {capsule} suspend ed Doxycycline Monohydrate 100 MG eCW1 ([facility]) Doxycycline Monohydrate 100 MG Oral Capsule Doxycycline [place] hydrate 100 MG 05/12/2019 12:00:00 AM EST 1.0 {capsule} suspend ed Doxycycline Monohydrate 100 MG eCW1 ([facility]) Doxycycline Monohydrate 100 MG Oral Capsule Doxycycline [place] hydrate 100 MG 05/12/2019 12:00:00 AM EST 1.0 {capsule} suspend ed Doxycycline Monohydrate 100 MG eCW1 ([facility]) Doxycycline Monohydrate 100 MG Oral Capsule Doxycycline [place] hydrate 100 MG 05/12/2019 12:00:00 AM EST 1.0 {capsule} suspend ed Doxycycline Monohydrate 100 MG eCW1 ([facility]) Doxycycline Monohydrate 100 MG Oral Capsule Doxycycline [place] hydrate 100 MG 05/12/2019 12:00:00 AM EST 1.0 {capsule} suspend ed Doxycycline Monohydrate 100 MG eCW1 ([facility]) Doxycycline Monohydrate 100 MG Oral Capsule Doxycycline [place] hydrate 100 MG 05/12/2019 12:00:00 AM EST active 1 capsule eCW1 ([facility]) Doxycycline Monohydrate 100 MG Oral Capsule Doxycycline [place] hydrate 100 MG 05/12/2019 12:00:00 AM EST active 1 capsule eCW1 ([facility]) Doxycycline Monohydrate 100 MG Oral Capsule Doxycycline [place] hydrate 100 MG 05/12/2019 12:00:00 AM EST 1.0 {capsule} suspend ed Doxycycline Monohydrate 100 MG eCW1 ([facility]) Doxycycline Monohydrate 100 MG Oral Capsule Doxycycline [place] hydrate 100 MG 05/12/2019 12:00:00 AM EST 1.0 {capsule} suspend ed Doxycycline Monohydrate 100 MG eCW1 ([facility]) PrednisoLONE 15 MG/5ML PrednisoLONE 15 MG/5ML 05/12/2019 12:00:[address] active 15 ml eCW1 ([facility]) Doxycycline Monohydrate 100 MG Oral Capsule Doxycycline [place] hydrate 100 MG 05/12/2019 12:00:00 AM EST 1.0 {capsule} suspend ed Doxycycline Monohydrate 100 MG eCW1 ([facility]) Iron 325 (65 Fe) MG Iron 325 (65 Fe) MG 05/05/2019 12:00:00 AM EST active 1 tablet eCW1 ([facility]) Iron 325 (65 Fe) MG Iron 325 (65 Fe) MG 05/05/2019 12:00:00 AM EST active 1 tablet eCW1 ([facility]) Iron 325 (65 Fe) MG Iron 325 (65 Fe) MG 05/05/2019 12:00:00 AM EST active 1 tablet eCW1 ([facility]) Iron 325 (65 Fe) MG Iron 325 (65 Fe) MG 05/05/2019 12:00:00 AM EST active 1 tablet eCW1 ([facility]) Ondansetron 4 MG Oral Tablet [Zofran] Zofran 4 MG Zofran 4 M G 04/21/2019 12:00:00 AM EST 1.0 {tablet} active Zo rosy 4 MG eCW1 ([facility]) Ondansetron 4 MG Oral Tablet [Zofran] Zofran 4 MG Zofran 4 M G 04/21/2019 12:00:00 AM EST active 1 tablet eCW1 ([facility]) Ondansetron 4 MG Oral Tablet [Zofran] Zofran 4 MG Zofran 4 M G 04/21/2019 12:00:00 AM EST 1.0 {tablet} active Zo rosy 4 MG eCW1 ([facility]) Ondansetron 4 MG Oral Tablet [Zofran] Zofran 4 MG Zofran 4 M G 04/21/2019 12:00:00 AM EST 1.0 {tablet} suspended Zofran 4 MG eCW1 ([facility]) Ondansetron 4 MG Oral Tablet [Zofran] Zofran 4 MG Zofran 4 M G 04/21/2019 12:00:00 AM EST 1.0 {tablet} active Zo rosy 4 MG eCW1 ([facility]) Ondansetron 4 MG Oral Tablet [Zofran] Zofran 4 MG Zofran 4 M G 04/21/2019 12:00:00 AM EST 1.0 {tablet} suspended Zofran 4 MG eCW1 ([facility]) Ondansetron 4 MG Oral Tablet [Zofran] Zofran 4 MG Zofran 4 M G 04/21/2019 12:00:00 AM EST 1.0 {tablet} active Zo rosy 4 MG eCW1 ([facility]) Ondansetron 4 MG Oral Tablet [Zofran] Zofran 4 MG Zofran 4 M G 04/21/2019 12:00:00 AM EST 1.0 {tablet} active Zo rosy 4 MG eCW1 ([facility]) Ondansetron 4 MG Oral Tablet [Zofran] Zofran 4 MG Zofran 4 M G 04/21/2019 12:00:00 AM EST 1.0 {tablet} active Zo rosy 4 MG eCW1 ([facility]) Ondansetron 4 MG Oral Tablet [Zofran] Zofran 4 MG Zofran 4 M G 04/21/2019 12:00:00 AM EST 1.0 {tablet} suspended Zofran 4 MG eCW1 ([facility]) Ondansetron 4 MG Oral Tablet [Zofran] Zofran 4 MG Zofran 4 M G 04/21/2019 12:00:00 AM EST active 1 tablet eCW1 ([facility]) Ondansetron 4 MG Oral Tablet [Zofran] Zofran 4 MG Zofran 4 M G 04/21/2019 12:00:00 AM EST active 1 tablet eCW1 ([facility]) Ondansetron 4 MG Oral Tablet [Zofran] Zofran 4 MG Zofran 4 M G 04/21/2019 12:00:00 AM EST 1.0 {tablet} active Zo rosy 4 MG eCW1 ([facility]) Ondansetron 4 MG Oral Tablet [Zofran] Zofran 4 MG Zofran 4 M G 04/21/2019 12:00:00 AM EST active 1 tablet eCW1 ([facility]) Ondansetron 4 MG Oral Tablet [Zofran] Zofran 4 MG Zofran 4 M G 04/21/2019 12:00:00 AM EST active 1 tablet eCW1 ([facility]) Ondansetron 4 MG Oral Tablet [Zofran] Zofran 4 MG Zofran 4 M G 04/21/2019 12:00:00 AM EST 1.0 {tablet} active Zo rosy 4 MG eCW1 ([facility]) Ondansetron 4 MG Oral Tablet [Zofran] Zofran 4 MG Zofran 4 M G 04/21/2019 12:00:00 AM EST active 1 tablet eCW1 ([facility]) Ondansetron 4 MG Oral Tablet [Zofran] Zofran 4 MG Zofran 4 M G 04/21/2019 12:00:00 AM EST active 1 tablet eCW1 ([facility]) prednisolone 3 MG/ML Oral Solution PrednisoLONE 15 MG/ 5ML PrednisoLONE 15 MG/5ML 04/19/2019 12:00:00 AM EST 15.0 {ml} suspende d PrednisoLONE 15 MG/5ML eCW1 ([facility]) PrednisoLONE 15 MG/5ML PrednisoLONE 15 MG/5ML 04/19/2019 12:00:[address] suspended 15 ml eCW1 ([facility]) prednisolone 3 MG/ML Oral Solution PrednisoLONE 15 MG/ 5ML PrednisoLONE 15 MG/5ML 04/19/2019 12:00:00 AM EST 15.0 {ml} suspende d PrednisoLONE 15 MG/5ML eCW1 ([facility]) PrednisoLONE 15 MG/5ML PrednisoLONE 15 MG/5ML 04/19/2019 12:00:[address] active 15 ml eCW1 ([facility]) prednisolone 3 MG/ML Oral Solution PrednisoLONE 15 MG/ 5ML PrednisoLONE 15 MG/5ML 04/19/2019 12:00:00 AM EST 15.0 {ml} suspende d PrednisoLONE 15 MG/5ML eCW1 ([facility]) PrednisoLONE 15 MG/5ML PrednisoLONE 15 MG/5ML 04/19/2019 12:00:[address] active 15 ml eCW1 ([facility]) prednisolone 3 MG/ML Oral Solution PrednisoLONE 15 MG/ 5ML PrednisoLONE 15 MG/5ML 04/19/2019 12:00:00 AM EST 15.0 {ml} suspende d PrednisoLONE 15 MG/5ML eCW1 ([facility]) prednisolone 3 MG/ML Oral Solution PrednisoLONE 15 MG/ 5ML PrednisoLONE 15 MG/5ML 04/19/2019 12:00:00 AM EST 15.0 {ml} suspende d PrednisoLONE 15 MG/5ML eCW1 ([facility]) prednisolone 3 MG/ML Oral Solution PrednisoLONE 15 MG/ 5ML PrednisoLONE 15 MG/5ML 04/19/2019 12:00:00 AM EST 15.0 {ml} suspende d PrednisoLONE 15 MG/5ML eCW1 ([facility]) prednisolone 3 MG/ML Oral Solution PrednisoLONE 15 MG/ 5ML PrednisoLONE 15 MG/5ML 04/19/2019 12:00:00 AM EST 15.0 {ml} suspende d PrednisoLONE 15 MG/5ML eCW1 ([facility]) PrednisoLONE 15 MG/5ML PrednisoLONE 15 MG/5ML 04/19/2019 12:00:00 A M EST 15.0 {ml} suspended PrednisoLONE 15 MG/5ML eCW1 ([facility]) prednisolone 3 MG/ML Oral Solution PrednisoLONE 15 MG/ 5ML PrednisoLONE 15 MG/5ML 04/19/2019 12:00:00 AM EST 15.0 {ml} suspende d PrednisoLONE 15 MG/5ML eCW1 ([facility]) prednisolone 3 MG/ML Oral Solution PrednisoLONE 15 MG/ 5ML PrednisoLONE 15 MG/5ML 04/19/2019 12:00:00 AM EST 15.0 {ml} suspende d PrednisoLONE 15 MG/5ML eCW1 ([facility]) PrednisoLONE 15 MG/5ML PrednisoLONE 15 MG/5ML 04/19/2019 12:00:00 A M EST 15.0 {ml} suspended PrednisoLONE 15 MG/5ML eCW1 ([facility]) tramadol hydrochloride 50 MG Oral Tablet Tramadol HCl 50 MG Tramadol HCl 50 MG 04/14/2019 12:00:00 AM EST active 1 tablet as needed eCW1 ([facility]) tramadol hydrochloride 50 MG Oral Tablet Tramadol HCl 50 MG Tramadol HCl 50 MG 04/14/2019 12:00:00 AM EST active 1 tablet as needed eCW1 ([facility]) tramadol hydrochloride 50 MG Oral Tablet Tramadol HCl 50 MG Tramadol HCl 50 MG 04/14/2019 12:00:00 AM EST active 1 tablet as needed eCW1 ([facility]) tramadol hydrochloride 50 MG Oral Tablet Tramadol HCl 50 MG Tramadol HCl 50 MG 04/14/2019 12:00:00 AM EST active 1 tablet as needed eCW1 ([facility]) tramadol hydrochloride 50 MG Oral Tablet Tramadol HCl 50 MG Tramadol HCl 50 MG 04/14/2019 12:00:00 AM EST active 1 tablet as needed eCW1 ([facility]) Levothyroxine Sodium 0.025 MG Oral Tablet Levothyroxin e Sodium 25 MCG Levothyroxine Sodium 25 MCG 03/29/2019 12:00:00 AM EST active 1 tablet in the morning on an empty stomach eCW1 ([facility]) Levothyroxine Sodium 0.025 MG Oral Tablet Levothyroxin e Sodium 25 MCG Levothyroxine Sodium 25 MCG 03/29/2019 12:00:00 AM EST active 1 tablet in the morning on an empty stomach eCW1 ([facility]) Levothyroxine Sodium 0.025 MG Oral Tablet Levothyroxin e Sodium 25 MCG Levothyroxine Sodium 25 MCG 03/29/2019 12:00:00 AM EST active 1 tablet in the morning on an empty stomach eCW1 ([facility]) Levothyroxine Sodium 0.025 MG Oral Tablet Levothyroxin e Sodium 25 MCG Levothyroxine Sodium 25 MCG 03/29/2019 12:00:00 AM EST active 1 tablet in the morning on an empty stomach eCW1 ([facility]) Levothyroxine Sodium 0.025 MG Oral Tablet Levothyroxin e Sodium 25 MCG Levothyroxine Sodium 25 MCG 03/29/2019 12:00:00 AM EST active 1 tablet in the morning on an empty stomach eCW1 ([facility]) Levothyroxine Sodium 0.025 MG Oral Tablet Levothyroxin e Sodium 25 MCG Levothyroxine Sodium 25 MCG 03/29/2019 12:00:00 AM EST active 1 tablet in the morning on an empty stomach eCW1 ([facility]) Levothyroxine Sodium 0.025 MG Oral Tablet Levothyroxin e Sodium 25 MCG Levothyroxine Sodium 25 MCG 03/29/2019 12:00:00 AM EST active 1 tablet in the morning on an empty stomach eCW1 ([facility]) Levothyroxine Sodium 0.025 MG Oral Tablet Levothyroxin e Sodium 25 MCG Levothyroxine Sodium 25 MCG 03/29/2019 12:00:00 AM EST active 1 tablet in the morning on an empty stomach eCW1 ([facility]) Insurance Providers Payer name Policy type / Coverage type Policy ID Covered libertarian ID Covered libertarian's relationship to gutierres Policy Gutierres Plan Information JORGE [id number] SP [id number] JORGE I [id number] Self [id number] [place] [id number] S [id number] [place] P UNAVAILABLE S UNAVAILABLE Medicaid S UNAVAILABLE S UNAVAILA BLE JORGE CARE MEDICAID [id number] S [id number] [facility] [id number] S [id number] ANSI-Commercial [id number] ANSI-Commercial [id number] ANSI-Commercial [id number] ANSI-Commercial [id number] ANSI-Commercial [id number] ANSI-Commercial [id number] ANSI-Commercial [id number] [id number] ANSI-Commercial [id number] ANSI-Commercial [id number] ANSI-Commercial [id number]-[id number]-[id number] ANSI-Commercial [id number]-[id number] ANSI-Commercial [id number]-[id number] [facility] [id number] 18 [id number] ANSI-Commercial [id number] ANSI-Commercial [id number]-777f-bj2j-[id number] ANSI-Commercial [id number]-[id number] ANSI-Commercial [id number] ANSI-Commercial [id number]-[id number] [facility] [id number] SP [id number] ANSI-Commercial [id number]-[id number] ANSI-Commercial [id number] ANSI-Commercial 494vdeks-[id number]-[id number] 429ykgnx-[id number]-[id number] ANSI-Commercial [id number]-jj72-[id number] ANSI-Commercial [id number] MEDICAID [id number] [facility] Organization ([facility]) [id number] Self [id number] ANSI-Commercial [id number]-[id number] ANSI-Commercial [id number]-rx65-[id number] [id number]-qz39-[id number] ANSI-Commercial [id number]-[id number] 63ixq7jt-2mw6-8145-[id number] ANSI-Commercial [id number]-[id number] ANSI-Commercial [id number]-[id number] tx80vy2q-2r2e-[id number] ANSI-Commercial [id number]-605v-[id number] ANSI-Commercial [id number]-[id number]-redc-[id number] [id number]-lve4-8o3x-ktnz-[id number] [facility] P [id number] S [id number] ANSI-Commercial -[id number]-[id number] -[id number] ANSI-Commercial [id number] ANSI-Commercial 151hp32z-[id number]-k134-gikbod29fo7j [id number]-26b0-9qt6-z080-geldbg19rv7v ANSI-Commercial [id number]-[id number]-m61n-[id number] [facility] [id number] [facility] [id number] ANSI-Commercial [id number]-[id number]-m3b9-5t0j-x9w6-[id number] ANSI-Commercial [id number]-52te-ycxt-[id number] ANSI-Commercial 42txv3mi-bl79-5z80-[id number] 58efk7ku-um09-0k70-g64c-[id number] [facility] Commercial [id number] [facility] [phone] ANSI-Commercial [id number] [facility] [id number] SP [id number] ANSI-Commercial [id number]-[id number] ANSI-Commercial [id number]-d5v7-75j2-[id number]-[id number] [place] [id number] Self [id number] [facility] Medicaid [id number] Self [id number] ANSI-Commercial [id number] [facility] [id number] SP [id number] [facility] Medicaid [id number] Self [id number] SELF PAY ONLY [id number] SP [id number] [facility] COMM [id number] S [id number] Problems, Conditions, and Diagnoses Code Display Name Description Problem Type Effective Dates Data Source(s) J45.901 [id number] Exacerbation of asth ma, unspecified asthma severity, unspecified whether persistent Problem 05/12/2019 12:00:00 AM EST eC W1 (Formerly [facility]) J45.901 [id number] Exacerbation of asth ma, unspecified asthma severity, unspecified whether persistent Problem 05/12/2019 12:00:00 AM EST eC W1 (Formerly [facility]) F33.0 [id number] Major depressive disorder, recurrent, mil d Problem 05/07/2019 12:00:00 AM EST eCW1 (Formerly [facility]) F43.10 [id number] Post-traumatic stress disorder, unspecifi ed Problem 05/07/2019 12:00:00 AM EST eCW1 (Formerly [facility]) F41.9 [id number] Anxiety disorder, unspecified type Proble m 05/07/2019 12:00:00 AM EST eCW1 (Formerly [facility]) F33.0 [id number] Major depressive disorder, recurrent, mil d Problem 05/07/2019 12:00:00 AM EST eCW1 (Formerly [facility]) D50.8 [id number] Other iron deficiency anemia Problem 020 12:00:00 AM EST eCW1 (Formerly [facility]) D50.8 [id number] Other iron deficiency anemia Problem 020 12:00:00 AM EST eCW1 (Formerly [facility]) G89.29 51478573 Other chronic pain Problem 04/14/2019 12:00: 00 AM EST eCW1 (Formerly [facility]) M54.6 [id number] Pain in thoracic spine Problem 04/14/19 20 12:00:00 AM EST eCW1 (Formerly [facility]) G89.29 80683188 Other chronic pain Problem 04/14/2019 12:00: 00 AM EST eCW1 (Formerly [facility]) M54.6 [id number] Pain in thoracic spine Problem 04/14/19 20 12:00:00 AM EST eCW1 (Formerly [facility]) R53.83 Other fatigue Other fatigue Diagnosis 06/10/2019 10:26:[address] [facility] Surgeries/Procedures Procedure Description Date Indications Data Source(s) PSYTX W PT 45 MINUTES 07/08/2019 12:00:00 AM EDT eCW1 (Formerly [facility]) FLOW CYTOMETRY CELL CYCLE/DNA BRADLEY LEUKEMIA / LYMPHOM A PHENOTYPE, PERIPHERAL BLOOD Routine 06/10/2019 9:50 AM EDT 06/10/2019 01:50 :[address] [facility] REAGENT STRIP/BLOOD GLUCOSE 05/28/2019 12:00:00 AM EDT eCW1 (Formerly [facility]) Transitional Care NO CHARGE Visit 05/24/2019 12:00:00 AM EDT eCW1 (Formerly [facility]) PSYCH DIAGNOSTIC EVALUATION 05/07/2019 12:00:00 AM EST eCW1 (Formerly [facility]) OSTEOPATH MANJ 3-4 REGIONS 04/29/2019 12:00:00 AM EST eCW1 (Formerly [facility]) Results ID Date Data Source [id number] 03/31/2020 02:12:00 PM EST [facility] Name Value Range Interpretation Code Description Data Naa rce(s) Supporting Document(s) Glucose [Mass/volume] in Capillary blood by Glucometer 190 mg/dL 70-105 Above high normal [facility] ([facility], ) ID Date Data Source [id number] 03/30/2020 12:00:00 PM EST [facility] Name Value Range Interpretation Code Description Data Naa rce(s) Supporting Document(s) SARS coronavirus 2 RNA [Presence] in Res piratory specimen by URIEL with probe detection NEGATIVE [facility] This lab was ordered by [facility] a nd reported by [facility]. ID Date Data Source [id number] 03/29/2020 10:26:00 AM EST [facility] ([facility]) Name Value Range Interpretation Code Description Data Naa rce(s) Supporting Document(s) IgG subclass 4 [Mass/volume] in Serum [facility] Alpha 1 antitrypsin [Mass/volume] in Serum or Plasma Laboratory sheree t [facility] [facility] ID Date Data Source [id number] 03/29/2020 10:26:00 AM EST [facility] ([facility]) Name Value Range Interpretation Code Description Data Naa rce(s) Supporting Document(s) Amylase [Enzymatic activity/volume] in Serum or Plasma 41 U/L 25-115 Normal (applies to non-numeric results) [facility] ([facility], ) Lipoprotein lipase [Enzymatic activity/volume] in Serum or P lasma 287 U/L 73-393 Normal (applies to non-numeric results) [facility] ([facility]) ID Date Data Source [id number] 03/29/2020 10:26:00 AM EST [facility] ([facility]) Name Value Range Interpretation Code Description Data Naa rce(s) Supporting Document(s) Olejh-4-Wmetoueefnx [Mass/volume] in Serum or Plasma 1.3 ng/mL Normal (applies to non-numeric results) [facility] THE AFP ASSAY IS PERFORMED ON THE PT [place] [employer] [place] BY CHEMILUMINESCENCE AND SHOULD NOT BE COMPARED INTERCHANGEABLY WITH OTHER METHODS. IT SHOULD NOT BE USED ALONE A SCREENING TEST OR DIAGNOSIS FOR THE PRESENCE OR ABSENCE OF MALIGNANT DISEASE. THESE RESULTS ARE NOT INTERPRETABLE IN FEMALES. PREDICTIONS OF DISEASE RECURRENCE SHOULD NOT BE BASED SOLELY ON VALUES OBTAINED FROM SERIAL PATIENT SERUM VALUES. Mitochondria Ab [Units/volume] in Serum Laboratory test result [facility] ID Date Data Source [id number] 03/29/2020 10:26:00 AM EST [facility] ([facility]) Name Value Range Interpretation Code Description Data Naa rce(s) Supporting Document(s) Prothrombin Time 13.8 s 12.5-14.3 Normal (applies to non-numeric results) [facility] ([facility]) Inr 1.04 Normal (applies to non-numeric resul ts) [facility] ([facility]) THERAPUTIC HUMAN INR VALUES INDICATIONS NORMAL RANGES PROPHYLAXIS/TREATMENT OF: VENOUS THROMBOSIS 2.0-3.0 PULMONARY EMBOLISM 2.0-3.0 PREVENTION OF SYSTEMIC EMBOLISM FROM: TISSUE HEART VALVES 2.0-3.0 ACUTE MYOCARDIAL INFARCTION 2.0-3.0 VALVULAR HEART DISEASE 2.0-3.0 ATRIAL FIBRILLATION 2.0-3.0 MECHANICAL VALVES(HIGH RISK) 2.5-3.5 RECURRENT MYOCARDIAL INFARCTION 2.5-3.5 ID Date Data Source [id number] 03/29/2020 10:26:[address] [facility] ([facility]) Name Value Range Interpretation Code Description Data [facility] rce(s) Supporting Document(s) Creatinine For GFR 0.85 mg/dL 0.55-1.30 Normal (applies to non -numeric results) [facility] ([facility]) Blood Urea Nitrogen 15 mg/dL 7-18 Normal (applies to non-nume kobe results) [facility] ([facility]) Glucose, Fasting 403 mg/dL 70-100 Above upper panic limits [facility] ([facility]) Sodium Level 134 meq/L 136-145 Below low normal [facility] ([facility]) Glomerular Filtration Rate Laboratory test result Normal (applies to non- numeric results) [facility]) <content>Units are mL/min/1.73 m2</content>
<content></content>
<content>Chronic Kidney Disease Staging per NKF:</content>
<content></content>
<content>Stage I & II GFR >=60 Normal to Mildly Decreased</content>
<content>Stage III GFR 30- 59 Moderately Decreased</content>
<content>Stage IV GFR 15-29 Severely Decreased</content>
<content>Stage V GFR <15 Very Little GFR Left</content>
<content>ESRD GFR <15 on PINION AND WHEEL TRUER</content>
<content></content> Potassium Serum 3.9 meq/L 3.5-5.1 Normal (applies to non-numeric results) [facility] ([facility]) Carbon Dioxide Level 24 meq/L 21-32 Normal (applies to non-num ruth results) [facility] ([facility]) Chloride Level 104 meq/L 98-107 Normal (applies to non-numeric r esults) [facility]) Anion Gap 6 meq/L 8-16 Below low normal [facility] Calcium Level 9.0 mg/dL 8.5-10.1 Normal (applies to non-numeric re sults) [facility] ([facility]) Alt/SGPT 161 U/L 12-78 Above high normal [facility] ([facility]) Ast/Sgot 48 U/L 7-37 Above high normal [facility]) Alkaline Phosphatase 213 U/L 45-117 Above high normal [facility]) Bilirubin,Total 0.3 mg/dL 0.2-1.0 Normal (applies to non-numeric results) [facility] ([facility]) Total Protein 7.3 GM/DL 6.4-8.2 Normal (applies to non-numeric re sults) [facility]) Albumin/Globulin Ratio 1.0 1.2-2.2 Below low normal [facility] ([facility]) Albumin 3.7 GM/DL 3.2-5.2 Normal (applies to non-numeric resul ts) [facility] ([facility]) ID Date Data Source [id number] 03/29/2020 10:26:00 AM EST [facility] ([facility]) Name Value Range Interpretation Code Description Data Naa rce(s) Supporting Document(s) Red Blood Count 4.02 10 4.00-5.40 Normal (applies to non-numeric results) [facility] ([facility], ) White Blood Count 7.7 10 4.0-10.0 Normal (applies to non-numeri c results) [facility] ([facility]) Hemoglobin 13.2 g/dL 12.0-15.5 Normal (applies to non-numeric resul ts) [facility] Mean Corpuscular Hemoglobin 32.8 pg 27.0-33.0 Norm al (applies to non-numeric results) [facility] ([facility]) Hematocrit 41.3 % 36.0-47.0 Normal (applies to non-numeric resul ts) [facility] ([facility]) Mean Corpuscular Volume 102.7 fl 80.0-96.0 Above high normal [facility]) Platelet Count, Automated 248 10 150-450 Normal (applies to non-numeric results) [facility] ([facility]) Mean Corpuscular HGB Conc 32.0 g/dL 32.0-36.5 Normal (applies to non-numeric results) [facility] ([facility]) Red Cell Distribution Width 12.8 % 11.5-14.5 Norm al (applies to non-numeric results) [facility] ([facility]) Neutrophils % 45.3 % 36.0-66.0 Normal (applies to non-numeric re sults) [facility] ([facility]) Lymph % 41.2 % 24.0-44.0 Normal (applies to non-numeric resul ts) [facility] ([facility]) [place] % 8.2 % 0.0-5.0 Above high normal [facility] ([facility]) Immature Granulocyte % 0.5 % 0-3.0 Normal (applies to non-n umeric results) [facility]) Eos % 3.8 % 0.0-3.0 Above high normal [facility] ([facility]) Baso % 1.0 % 0.0-1.0 Normal (applies to non-numeric resul ts) [facility]) Nucleated Red Blood Cell % 0.0 % 0-0 Normal (applies to n on-numeric results) [facility] ([facility], ) Lymph # 3.2 10 1.5-5.0 Normal (applies to non-numeric resul ts) [facility] ([facility]) Neutrophils # 3.5 10 1.5-8.5 Normal (applies to non-numeric re sults) [facility] ([facility], ) [place] # 0.6 10 0.0-0.8 Normal (applies to non-numeric resul ts) [facility] ([facility]) Eos # 0.3 10 0.0-0.5 Normal (applies to non-numeric resul ts) [facility] ([facility]) Baso # 0.1 10 0.0-0.2 Normal (applies to non-numeric resul ts) [facility] ([facility]) ID Date Data Source [id number] 06/14/2019 02:14:00 PM [facility] Hematopathology ReportName: ALEKS CRYSTALZhaoMRN: [id number] Number: [id number] Date: 06/10/2019 09:50Received Date: 06/11/2019 13:40Physician(s): ZOHAIB AMADOR MD HAGHIR, SHAHANDEH F,[facility] [place] [facility]imen(s) ReceivedA: Blood, Flow Cytometry; Received 2 [...] Signed Out06/14/2019 InterpretationPERIPHERAL BLOOD: CBC performed at [facility] (06/10/19)WBC 7.7 K/uLRBC *3.98 M/uLHgb *10.9 g/dLHct 37.1 %MCV 93.2 fLMCH 27.4 pgMCHC *29.4 g/dLRDW *23.6 %Platelets 283 K/ulDifferential Count (automated): 0.5 % Immature Qdhtngenagjy42.7 % Neutrophils 3.1 % Eosinophils 0.7 % Xntrtapwa07.0 % Lymphocytes 8.0 % Monocytes-------100.0 % A few lymphocytes have irregular nuclear contours. Increased anisocytosisand a few elliptocytes and dacryocytes seen. Mildly increased rouleauxformation. Lymphoid Panel: The following markers were assayed: CD45 (gate), CD2, CD3, CD4, CD5, CD7,CD8, CD10, CD11c, CD19, CD20, CD22, CD23, CD25, CD38, CD56, CD57, CD103,Burwell, Lambda, and FMC7.# events: [id number]: 98%Flow Cytometry Differential (CD45/SSC)Lymphocyte Tiline: 43%CD45 dim Tiline: 0%Monocyte Tiline: 4%Granulocyte Tiline: 49%Nucleated/Erythroid Tiline: 1%The lymphocyte gate showsB-cells (CD19): 3%Burwell/Lambda Ratio: 1.4T- cells (CD3): 82%NK-cells (CD3-/CD56+): 12%CD4/CD8 Ratio: 0.5Results: (expressed as % of lymphocyte gate)T-cell Markers: CD2 = 90, CD3 = 82, CD3/CD4 = 26, CD3/CD8 = 55, CD5 = 80,CD7 = 86, CD3/57 = 14B-cell markers: Burwell = 1, Lambda = 1, CD19 = 3, CD20 = 3, CD19/10 = 0,CD19/CD5 = 0, CD38/CD20 = 2, CD22 = 4, CD19/CD23 = 2, FMC7 = 2Light chain as % of B-Cells: CD19/Burwell = 35, CD19/Lambda = 26,CD19/CD5/Burwell = 1, CD19/CD5/Lambda = 0, CD19/CD10/Burwell = 0,CD19/CD10/Lambda = 0CD38 on CD19/5 positive [...] were developed and theirperformance characteristics determined by [facility] Pathology department.They have not been cleared or approved by the US Food and DrugAdministration. The FDA has determined that such clearance or approval isnot necessary. Name Value Range Interpretation Code Description Data Naa rce(s) Supporting Document(s) ID Date Data Source [id number] 06/11/2019 02:27:55 PM EDT [facility] Name Value Range Interpretation Code Description Data Naa rce(s) Supporting Document(s) Flow cytometry study [facility] ID Date Data Source Pathology Request For Service 04/29/2019 12:00:00 AM EST eCW 1 ([facility]) Name Value Range Interpretation Code Description Data Naa rce(s) Supporting Document(s) PERIPHERAL SMEAR-PATH REVIEW e CW1 ([facility]) ID Date Data Source TRANSFERRIN 04/29/2019 12:00:00 AM EST eCW1 ([facility]) Name Value Range Interpretation Code Description Data Naa rce(s) Supporting Document(s) 391 200-370 TRANSFERRIN eCW1 ([facility]) ID Date Data Source VITB12 & FOL 04/29/2019 12:00:00 AM EST eCW1 ([facility]) Name Value Range Interpretation Code Description Data Naa rce(s) Supporting Document(s) 507 VITAMIN B12 LEVEL eCW1 ([facility]) 7.3 FOLATE eCW1 ([facility]) ID Date Data Source TOTAL IRON BINDING CAPACIT 04/29/2019 12:00:00 AM EST eCW1 ( [facility]) Name Value Range Interpretation Code Description Data Naa rce(s) Supporting Document(s) 20 50-170 IRON (FE) eCW1 ([facility]) 480 250-450 TOTAL IRON BINDING CAPACI TY eCW1 ([facility]) 4.2 13.2-45.0 PERCENT SATURATION eCW1 ([facility]) ID Date Data Source Reticulocyte Count Sysmex 04/29/2019 12:00:00 AM EST eCW1 ([facility]) Name Value Range Interpretation Code Description Data Naa rce(s) Supporting Document(s) 2.1 0.5-1.5 RETICULOCYTE % eCW1 ([facility]) ID Date Data Source PERIPH SMEAR FOR PATH REVIEW 04/29/2019 12:00:00 AM EST eCW1 ([facility]) Name Value Range Interpretation Code Description Data Naa rce(s) Supporting Document(s) Report SLIDE REVIEW eCW1 ([facility]) PERIPHERAL SMEAR SOURCE eCW1 ([facility]) ID Date Data Source FERRITIN 04/29/2019 12:00:00 AM EST eCW1 ([facility]) Name Value Range Interpretation Code Description Data Naa rce(s) Supporting Document(s) 12 8-252 FERRITIN eCW1 ([facility]) ID Date Data Source CBC with Differential 04/29/2019 12:00:00 AM EST eCW1 ([facility]) Name Value Range Interpretation Code Description Data Naa rce(s) Supporting Document(s) 40.5 24.0-44.0 LYMPH % eCW1 ([facility]) 49.4 36.0-66.0 NEUTROPHILS % eCW1 ([facility]) 6.7 0.0-5.0 MONO % eCW1 ([facility]) 0.6 0.0-1.0 BASO % eCW1 ([facility]) 2.3 0.0-3.0 EOS % eCW1 ([facility]) 0.7 0.0-0.8 MONO # eCW1 ([facility]) 0.3 0.0-0.5 EOS # eCW1 ([facility]) 4.5 1.5-5.0 LYMPH # eCW1 ([facility]) 5.5 1.5-8.5 NEUTROPHILS # eCW1 ([facility]) 0.1 0.0-0.2 BASO # eCW1 ([facility]) 3.93 4.00-5.40 RED BLOOD COUNT eCW1 ([facility]) 12.0 4.0-10.0 WHITE BLOOD COUNT eCW1 ([facility]) 9.7 12.0-15.5 HEMOGLOBIN eCW1 ([facility]) 33.4 36.0-47.0 HEMATOCRIT eCW1 ([facility]) 85.0 80.0-96.0 MEAN CORPUSCULAR VOLUME e CW1 ([facility]) 24.7 27.0-33.0 MEAN CORPUSCULAR HEMOGLOB IN eCW1 ([facility]) 29.0 32.0-36.5 MEAN CORPUSCULAR HGB CONC eCW1 ([facility]) 16.4 11.5-14.5 RED CELL DISTRIBUTION WID TH eCW1 ([facility]) 300 150-450 PLATELET COUNT, AUTOMATED eCW1 ([facility]) ID Date Data Source GAMMA GLUTAMYLTRANSPEPTIDASE 04/14/2019 12:00:00 AM EST eCW1 ([facility]) Name Value Range Interpretation Code Description Data Naa rce(s) Supporting Document(s) 75 5-55 GAMMA GLUTAMYLTRANSPEPTIDASE e CW1 ([facility]) ID Date Data Source VITAMIN D 25-HYDROXY 04/14/2019 12:00:00 AM EST eCW1 ([facility]) Name Value Range Interpretation Code Description Data Naa rce(s) Supporting Document(s) 13.3 30.0-100.0 TOTAL 25(OH) VITAMIN D eC W1 ([facility]) ID Date Data Source PTH INTACT 04/14/2019 12:00:00 AM EST eCW1 ([facility]) Name Value Range Interpretation Code Description Data Naa rce(s) Supporting Document(s) 42.4 18.5-88.0 PTH INTACT eCW1 ([facility]) ID Date Data Source LIVER PROFILE 04/14/2019 12:00:00 AM EST eCW1 ([facility]) Name Value Range Interpretation Code Description Data Naa rce(s) Supporting Document(s) 0.2 0.2-1.0 BILIRUBIN,TOTAL eCW1 ([facility]) 32 7-37 AST/SGOT eCW1 ([facility]) 60 12-78 ALT/SGPT eCW1 ([facility]) < 0.1 0.0-0.2 BILIRUBIN,DIRECT eCW1 ([facility]) 212 45-117 ALKALINE PHOSPHATASE eCW1 ([facility]) 7.8 6.4-8.2 TOTAL PROTEIN eCW1 ([facility]) 3.7 3.2-5.2 ALBUMIN eCW1 ([facility]) 0.90 1.00-1.93 ALBUMIN/GLOBULIN RATIO eCW1 ([facility]) ID Date Data Source Basic Metabolic Profile (BMP) 04/14/2019 12:00:00 AM EST eCW 1 ([facility]) Name Value Range Interpretation Code Description Data Naa rce(s) Supporting Document(s) 15 7-18 BLOOD UREA NITROGEN eCW1 ([facility]) 75 70-100 GLUCOSE, FASTING eCW1 ([facility]) 0.76 0.55-1.30 CREATININE FOR GFR eCW1 ([facility]) > 60.0 >58 GLOMERULAR FILTRATION RATE eCW 1 ([facility]) 107 98-107 CHLORIDE LEVEL eCW1 ([facility]) 4.1 3.5-5.1 POTASSIUM SERUM eCW1 ([facility]) 140 136-145 SODIUM LEVEL eCW1 ([facility]) 9.1 8.5-10.1 CALCIUM LEVEL eCW1 ([facility]) 26 21-32 CARBON DIOXIDE LEVEL eCW1 ([facility]) ID Date Data Source [id number] 04/14/2019 12:00:00 AM EST eCW1 ([facility]) Name Value Range Interpretation Code Description Data Naa rce(s) Supporting Document(s) Microalbumin/Creatinine [Mass Ratio] in Urine 114.0 CREATININE, URINE eCW1 ([facility]) Albumin/Creatinine [Mass Ratio] in Urine 6.7 MALB URINE SIEMENS eCW1 ([facility]) Microalbumin/Creatinine [Ratio] in Urine 5.8 0.0-30.0 MERE/CREAT RATIO eCW1 ([facility]) ID Date Data Source LIPID PANEL (CARDIAC RISK) 04/14/2019 12:00:00 AM EST eCW1 ( [facility]) Name Value Range Interpretation Code Description Data Naa rce(s) Supporting Document(s) Triglyceride [Mass/volume] in Serum or Plasma by calculation 156 <150 TRIGLYCERIDES LEVEL eCW1 ([facility]) Cholesterol [Moles/volume] in Serum or Plasma 205 <200 CHOLESTEROL LEVEL eCW1 ([facility]) Cholesterol in LDL [Mass/volume] in Serum or Plasma by calculation 131 <100 LDL CHOLESTEROL eC1 ([facility]) Cholesterol in HDL [Moles/volume] in Serum or Plasma 43 >40 HDL CHOLESTEROL [facility] ([facility]) 4.767 <5 CHOLESTEROL RISK RATIO eCW1 ([facility]) 162 NON-HDL-C eCW1 ([facility]) ID Date Data Source [id number] 04/14/2019 12:00:00 AM EST eCW1 ([facility]) Name Value Range Interpretation Code Description Data Naa rce(s) Supporting Document(s) Hemoglobin A1c/Hemoglobin.total in Blood 10.4 HEMOGLOBIN A1c eC1 ([facility]) ID Date Data Source [id number] 04/07/2019 01:00:23 PM EST [facility] Vital SignsBlood Pressure: 144/88 Patient History Medical History:Diabetes - Type IIHypertensionNeuropathyPTSDFibomymiagiaAnxietyAlpha 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 AsthmaBlood clot in lungs- 2019Social/Personal History: Smoking Status: former smokerCurrent Problems: Teeth extraction (ICD-525.10) (VOM22-S20.499)Dental caries (ICD-521.00) (ICD10- K02.9)Current Medications: * ELIQUIS [...] DMD) Chart Notes:mac (Apr 07 2019 2:56PM): [facility](-). CC: none. Reviewed Xrays. Exam: no caries detected. OCS: WNL, IO/ EO completed, No significant hard findings upon clinical exam Pt was cooperative.OHI givenReferral: N/ANV:recallTimur ABRAHAM Mike kenia by mac (04/07/2019 2:56 PM): [...] during this visit, including review of any boyg-odi-bcibpft medications, herbal therapies, and/or supplements.Allergy ReviewAllergy List was reviewed and/or updated during this visit. Name Value Range Interpretation Code Description Data Naa rce(s) Supporting Document(s) ID Date Data Source [id number] 04/01/2019 10:41:53 AM [facility] Current Problems: Teeth extraction (ICD- 525.10) (OER49-C67.499)Dental caries (ICD-521.00) (QTA97-M58.9)Current Medications: * AMLODIPINE * CANNABIDIOL * TRULICITY [...] MO (Performed by Lorene Hernández DMD) Chart Notes:jlam (Apr 01 2019 12:36PM): [facility] (-)per pt [...] EST Former Smoker completed Former Smoker eCW1 ([facility]) Smoking 04/03/2020 12:00:00 AM EST Former Smoker completed Former Smoker eCW1 ([facility]) Smoking 04/03/2020 12:00:00 AM EST Former Smoker completed Former Smoker eCW1 ([facility]) Smoking 12/16/2019 12:00:00 AM EDT Former Smoker completed Former Smoker eCW1 ([facility]) Smoking 12/16/2019 12:00:00 AM EDT Former Smoker completed Former Smoker eCW1 ([facility]) Smoking 12/16/2019 12:00:00 AM EDT Former Smoker completed Former Smoker eCW1 ([facility]) Smoking 12/16/2019 12:00:00 AM EDT Former Smoker completed Former Smoker eCW1 ([facility]) Smoking 12/16/2019 12:00:00 AM EDT Former Smoker completed Former Smoker eCW1 ([facility]) Smoking 12/16/2019 12:00:00 AM EDT Former Smoker completed Former Smoker eCW1 ([facility]) Smoking 12/16/2019 12:00:00 AM EDT Former Smoker completed Former Smoker eCW1 ([facility]) Smoking 07/25/2019 12:00:00 AM EDT Former Smoker completed Former Smoker eCW1 ([facility]) Smoking 04/16/2019 12:00:00 AM EST Patient is a former smoker completed Patient is a former smoker [facility] ([facility], ) Vital Signs ID Date Data Source UNK Name Value Range Interpretation Code Description Data Source(s) Heart rate 95 /min 95 /min eCW1 ([facility]) Body mass index (BMI) [Ratio] 35.87 kg/m2 35.87 kg/m2 W1 ([facility]) Body height 64 [in_i] 64 [in_i] W1 ([facility]) Body weight 209 [lb_av] 209 [lb_av] W1 ([facility]) Diastolic blood pressure 90 mm[Hg] 90 mm[Hg] eCW1 ([facility]) Systolic blood pressure 128 mm[Hg] 128 mm[Hg] e CW1 ([facility]) Body temperature 97.2 [degF] 97.2 [degF] eCW1 ( [facility]) Respiratory rate 18 /min 18 /min eCW1 ([facility]) Body surface area Derived from formula 1.99 m2 1.99 m2 [facility] Body weight 93.895 kg 93.895 kg [facility] ([facility]) [place] body weight 120 [lb_av] 120 [lb_av] MEDEN T ([facility]) Body mass index (BMI) [Ratio] 35.5 kg/m2 35.5 k g/m2 [facility] ([facility]) Body weight 207.00 [lb_av] 207.00 [lb_av] MEDEN T ([facility]) Body height 64 [in_i] 64 [in_i] [facility] ([facility]) 5'4" Diastolic blood pressure 109 mm[Hg] 109 mm[Hg] [facility] ([facility]) Systolic blood pressure 156 mm[Hg] 156 mm[Hg] M EDENT ([facility]) Diastolic blood pressure 84 mm[Hg] 84 mm[Hg] eCW1 ([facility]) Systolic blood pressure 115 mm[Hg] 115 mm[Hg] e CW1 ([facility]) Body temperature 97.8 [degF] 97.8 [degF] W1 ( [facility]) Respiratory rate 18 /min 18 /min eCW1 ([facility]) Heart rate 108 /min 108 /min eCW1 ([facility]) Body mass index (BMI) [Ratio] 35.87 kg/m2 35.87 kg/m2 W1 ([facility]) Body height 64 [in_i] 64 [in_i] eCW1 ([facility]) Body weight 209 [lb_av] 209 [lb_av] eCW1 ([facility]) Body temperature 97.6 [degF] 97.6 [degF] MED[facility] ([facility]) Respiratory rate 18 /min 18 /min [facility] Diastolic blood pressure 94 mm[Hg] 94 mm[Hg] MEDENT ([facility], ) Systolic blood pressure 154 mm[Hg] 154 mm[Hg] M EDENT ([facility], ) Body mass index (BMI) [Ratio] 36.0 kg/m2 36.0 k g/m2 MED[facility] ([facility] ) Body weight 210.00 [lb_av] 210.00 [lb_av] MEDEN T ([facility] ) Body height 64 [in_i] 64 [in_i] MED[facility] ([facility] ) 5'4" Body temperature 97.6 [degF] 97.6 [degF] eCW1 ( [facility]) Respiratory rate 20 /min 20 /min eCW1 ([facility]) Heart rate 134 /min 134 /min eCW1 ([facility]) Body mass index (BMI) [Ratio] 36.04 kg/m2 36.04 kg/m2 eCW1 ([facility]) Body height 64 [in_us] 64 [in_us] eCW1 ([facility]) Body weight Measured 210 [lb_av] 210 [lb_av] eC W1 ([facility]) Diastolic blood pressure 90 mm[Hg] 90 mm[Hg] eCW1 ([facility]) Systolic blood pressure 121 mm[Hg] 121 mm[Hg] e CW1 ([facility]) Diastolic blood pressure 86 mm[Hg] 86 mm[Hg] eCW1 ([facility]) Systolic blood pressure 129 mm[Hg] 129 mm[Hg] e CW1 ([facility]) Body temperature 97.8 [degF] 97.8 [degF] eCW1 ( [facility]) Respiratory rate 18 /min 18 /min eCW1 ([facility]) Heart rate 99 /min 99 /min eCW1 ([facility]) Body mass index (BMI) [Ratio] 36.04 kg/m2 36.04 kg/m2 eCW1 ([facility]ly [facility]) Body height 64 [in_us] 64 [in_us] eCW1 ([facility]) Body weight Measured 210 [lb_av] 210 [lb_av] eC W1 (Formerly [facility]) Diastolic blood pressure 91 mm[Hg] 91 mm[Hg] eCW1 (Formerly [facility]) Systolic blood pressure 132 mm[Hg] 132 mm[Hg] e CW1 (Formerly [facility]) Body temperature 98.7 [degF] 98.7 [degF] eCW1 ( [facility]) Respiratory rate 18 /min 18 /min eCW1 ([facility]) Heart rate 94 /min 94 /min eCW1 ([facility]) Body mass index (BMI) [Ratio] 36.21 kg/m2 36.21 kg/m2 eCW1 (Formerly [facility]) Body height 64 [in_us] 64 [in_us] eCW1 ([facility]) Body weight Measured 211 [lb_av] 211 [lb_av] eC W1 ([facility]ly [facility]) Diastolic blood pressure 86 mm[Hg] 86 mm[Hg] eCW1 ([facility]ly [facility]) Systolic blood pressure 146 mm[Hg] 146 mm[Hg] e CW1 ([facility]ly [facility]) Body temperature 97.7 [degF] 97.7 [degF] eCW1 ( [facility]) Respiratory rate 18 /min 18 /min eCW1 ([facility]) Heart rate 102 /min 102 /min eCW1 ([facility]) Body mass index (BMI) [Ratio] 36.04 kg/m2 36.04 kg/m2 eCW1 (Formerly [facility]) Body height 64 [in_us] 64 [in_us] eCW1 ([facility]) Body weight Measured 210 [lb_av] 210 [lb_av] eC W1 ([facility]ly [facility]) Body mass index (BMI) [Ratio] 36.04 kg/m2 36.04 kg/m2 eCW1 ([facility]) Body height 64 [in_us] 64 [in_us] eCW1 ([facility]) Body weight Measured 210 [lb_av] 210 [lb_av] eC W1 ([facility]) Diastolic blood pressure 100 mm[Hg] 100 mm[Hg] eCW1 ([facility]) Systolic blood pressure 146 mm[Hg] 146 mm[Hg] e CW1 ([facility]) Body temperature 98.0 [degF] 98.0 [degF] eCW1 ( [facility]) Respiratory rate 18 /min 18 /min eCW1 ([facility]) Heart rate 96 /min 96 /min eCW1 ([facility]) Diastolic blood pressure 85 mm[Hg] 85 mm[Hg] eCW1 ([facility]) Systolic blood pressure 135 mm[Hg] 135 mm[Hg] e CW1 ([facility]) Body temperature 97.7 [degF] 97.7 [degF] eCW1 ( [facility]) Respiratory rate 18 /min 18 /min eCW1 ([facility]) Heart rate 100 /min 100 /min eCW1 ([facility]) Body mass index (BMI) [Ratio] 36.39 kg/m2 36.39 kg/m2 eCW1 ([facility]) Body height 64 [in_us] 64 [in_us] eCW1 ([facility]) Body weight Measured 212 [lb_av] 212 [lb_av] eC W1 ([facility]) Diastolic blood pressure 88 mm[Hg] 88 mm[Hg] eCW1 ([facility]) Systolic blood pressure 127 mm[Hg] 127 mm[Hg] e CW1 ([facility]) Body temperature 99.0 [degF] 99.0 [degF] eCW1 ( [facility]) Respiratory rate 16 /min 16 /min eCW1 ([facility]) Heart rate 83 /min 83 /min eCW1 ([facility]) Body mass index (BMI) [Ratio] 35.53 kg/m2 35.53 kg/m2 eCW1 ([facility]) Body height 64 [in_us] 64 [in_us] eCW1 ([facility]) Body weight Measured 207 [lb_av] 207 [lb_av] eC W1 ([facility]ly [facility]) Patient Treatment Plan of Care Planned Activity Planned Date Details Description Data Source (s) Fluconazole 150 MG Oral Tablet [Diflucan] 04/25/2020 12:00:00 AM ES T eCW1 ([facility]ly [facility]) Steglatro 5 MG 04/04/2020 12:00:00 AM EST eCW1 ([facility]ly [facility]) Steglatro 5 MG 04/04/2020 12:00:00 AM EST eCW1 ([facility]) Steglatro 5 MG 04/04/2020 12:00:00 AM EST eCW1 ([facility]ly [facility]) Pen Elsie 31G X 5 MM 04/03/2020 12:00:00 AM EST eCW1 ([facility]ly [facility]) Oseltamivir 75 MG Oral Capsule [Tamiflu] 04/03/2020 12:00:00 AM EST eCW1 ([facility]) Acetaminophen 325 MG / Hydrocodone Bitartrate 5 MG Ora l Tablet 04/03/2020 12:00:00 AM EST eCW1 ([facility]) Pen Elsie 31G X 5 MM 04/03/2020 12:00:00 AM EST eCW1 ([facility]) Oseltamivir 75 MG Oral Capsule [Tamiflu] 04/03/2020 12:00:00 AM EST eCW1 ([facility]) Acetaminophen 325 MG / Hydrocodone Bitartrate 5 MG Ora l Tablet 04/03/2020 12:00:00 AM EST eCW1 ([facility]) Pen Elsie 31G X 5 MM 04/03/2020 12:00:00 AM EST eCW1 ([facility]) Oseltamivir 75 MG Oral Capsule [Tamiflu] 04/03/2020 12:00:00 AM EST eCW1 ([facility]) Acetaminophen 325 MG / Hydrocodone Bitartrate 5 MG Ora l Tablet 04/03/2020 12:00:00 AM EST eCW1 ([facility]) Glucometer 01/10/2020 12:00:00 AM EDT e CW1 ([facility]) Lancets - 01/10/2020 12:00:00 AM EDT e CW1 ([facility]) Glucometer 01/10/2020 12:00:00 AM EDT e CW1 ([facility]) Lancets - 01/10/2020 12:00:00 AM EDT e CW1 ([facility]) Glucometer 01/10/2020 12:00:00 AM EDT e CW1 ([facility]) Lancets - 01/10/2020 12:00:00 AM EDT e CW1 ([facility]) Glucometer 01/10/2020 12:00:00 AM EDT e CW1 ([facility]) Lancets - 01/10/2020 12:00:00 AM EDT e CW1 ([facility]) Glucometer 01/10/2020 12:00:00 AM EDT e CW1 ([facility]) Lancets - 01/10/2020 12:00:00 AM EDT e CW1 ([facility]) Glucometer 01/10/2020 12:00:00 AM EDT e CW1 ([facility]) Lancets - 01/10/2020 12:00:00 AM EDT e CW1 ([facility]) Acetaminophen 325 MG / Hydrocodone Bitartrate 5 MG Ora l Tablet 12/29/2019 12:00:00 AM EDT eCW1 ([facility]) Acetaminophen 325 MG / Hydrocodone Bitartrate 5 MG Ora l Tablet 12/29/2019 12:00:00 AM EDT eCW1 ([facility]) Acetaminophen 325 MG / Hydrocodone Bitartrate 5 MG Ora l Tablet 12/29/2019 12:00:00 AM EDT eCW1 ([facility]) Acetaminophen 325 MG / Hydrocodone Bitartrate 5 MG Ora l Tablet 12/29/2019 12:00:00 AM EDT eCW1 ([facility]) Acetaminophen 325 MG / Hydrocodone Bitartrate 5 MG Ora l Tablet 12/29/2019 12:00:00 AM EDT eCW1 ([facility]) Acetaminophen 325 MG / Hydrocodone Bitartrate 5 MG Ora l Tablet 12/29/2019 12:00:00 AM EDT eCW1 ([facility]) Acetaminophen 325 MG / Hydrocodone Bitartrate 5 MG Ora l Tablet 12/29/2019 12:00:00 AM EDT eCW1 ([facility]) Fluconazole 150 MG Oral Tablet [Diflucan] 06/09/2019 12:00:00 AM ED T eCW1 ([facility]) PrednisoLONE 15 MG/5ML 05/12/2019 12:00:00 AM EST eCW1 ([facility]) Doxycycline Monohydrate 100 MG Oral Capsule 05/12/2019 12:00:00 AM EST eCW1 ([facility]) Iron 325 (65 Fe) MG 05/05/2019 12:00:00 AM EST eCW1 ([facility]) Ondansetron 4 MG Oral Tablet [Zofran] 04/21/2019 12:00:00 AM EST eCW1 ([facility]) tramadol hydrochloride 50 MG Oral Tablet 04/14/2019 12:00:00 AM EST eCW1 ([facility]) Levothyroxine Sodium 0.025 MG Oral Tablet 03/29/2019 12:00:00 AM ES T eCW1 ([facility])
--- NOTE | 2020-05-06 16:29 | REP ---
INDICATION: fall. COMPARISON: CT abdomen pelvis bone windows 04/21/2020 TECHNIQUE: Axial soft tissue and bone windows with coronal and sagittal bone window reconstructions provided. FINDINGS: The normal lordosis is maintained. Vertebral body heights from T12-L1 through the sacrum were unremarkable without compression deformity. No destructive lesion or avulsion. Disc space heights intact. Posterior elements unremarkable. There is a broad-based disc bulge at the L4-5 left paracentral causing some mild loss of central canal cross-sectional area. Foramina adequate at this level. Disc bulge at L5-S1 without spinal or foraminal stenosis. The L3-4 levels and above were unremarkable. Lower of ribs seen were intact there is some calcifications of the aorta without aneurysm. No paraspinal hematoma or other finding. The visualized sacral ala, foramina and SI joints unremarkable. IMPRESSION: No compression fracture, malalignment, spinal or foraminal stenosis of significance. A left paracentral small disc bulge at L4-5 causes mild decrease in cross-sectional area of the canal which is still adequate overall. No acute finding in the bony lumbar spine. <Electronically signed by Virgilio Otero > 05/06/20 [id number]
[2020-05-06] MEDS ORDERED: CYCL-707 PO (16:46)
[2020-05-06] MEDS ORDERED: IBUP-1022 PO (16:46)
[2020-05-06 16:53] VITALS: BP 121/78
--- NOTE | 2020-05-08 20:03 | ED PDOC ---
Post-Departure Follow-Up dr garcia faxed formal report of ct ls spine for fu Kika Villela MD May 08, 2020 20:03
== END 2020-05-06 17:04 | disposition home or self-care (01) ==
LOC: M ED 15:36 → EDBD 15:36 → M ED 17:04
DX: S00.93XA Contusion of unspecified part of head, initial encounter (principal); W10.9XXA Fall (on) (from) unspecified stairs and steps, initial encounter; Y92.099 Unspecified place in other non-institutional residence as the place of occurrence of the external cause; Y93.9 Activity, unspecified; Y99.9 Unspecified external cause status; E11.9 Type 2 diabetes mellitus without complications; I10 Essential (primary) hypertension; Z86.19 Personal history of other infectious and parasitic diseases; Z87.891 Personal history of nicotine dependence; Z79.01 Long term (current) use of anticoagulants; Z79.4 Long term (current) use of insulin; Z79.899 Other long term (current) drug therapy; Z88.8 Allergy status to other drugs, medicaments and biological substances

== ENCOUNTER → 2020-05-09 | Outpatient (CLI) | payer OTHER ==
[~2020-05-09] MED LIST changes: +STEG5TAB
--- NOTE | 2020-05-09 15:50 | REP ---
INDICATION: PAIN IN RIGHT SHOULDER. COMPARISON: Comparison right shoulder radiographs are from September 13, 2019.. TECHNIQUE: Three views of the right shoulder are obtained. FINDINGS: The right glenohumeral and acromioclavicular joints are normally aligned. Periarticular soft tissues are unremarkable. No erosive changes seen. The visualized right rib cage is unremarkable. IMPRESSION: Negative right shoulder radiographs. <Electronically signed by Lavon Booker > 05/09/20 [id number]
== END ==
LOC: M RAD 15:27
PROVIDERS: ATTEND Family Medicine
DX: M25.511 Pain in right shoulder (principal)

== ENCOUNTER 2020-06-19 10:59 | Inpatient (IN) | payer OTHER ==
[~2020-06-19] VITALS: Ht 160 cm; Wt 91.4 kg
[~2020-06-19 10:59] MED LIST changes: +FERR324T21 PO; -FERR325T16 PO; -PEGPOW PO; +POLY510P14 PO; -STEG5TAB; +STEG5TAB PO
[2020-06-19 12:06] LABS: BASO # 0.1 10^3/uL (0.0-0.2); BASO % 0.7 % (0.0-1.0); EOS # 0.3 10^3/uL (0.0-0.5); EOS % 3.5 % (0.0-3.0); HEMATOCRIT 44.2 % (36.0-47.0); HEMOGLOBIN 14.8 g/dl (12.0-15.5); LYMPH % 35.4 % (24.0-44.0); MEAN CORPUSCULAR HEMOGLOBIN 33.8 pg (27.0-33.0); MEAN CORPUSCULAR HGB CONC 33.5 g/dl (32.0-36.5); MEAN CORPUSCULAR VOLUME 100.9 fl (80.0-96.0); MONO # 0.7 10^3/uL (0.0-0.8); MONO % 8.4 % (2.0-8.0); NEUTROPHILS # 4.4 10^3/uL (1.5-8.5); NEUTROPHILS % 51.5 % (36.0-66.0); PLATELET COUNT, AUTOMATED 248 10^3/uL (150-450); RED BLOOD COUNT 4.38 10^6/uL (4.00-5.40); WHITE BLOOD COUNT 8.5 10^3/uL (4.0-10.0)
[2020-06-19 12:17] LABS: INR 1.03; PROTHROMBIN TIME 13.7 SECONDS (12.5-14.3)
[2020-06-19] MEDS ORDERED: MORPHINE 4 MG/ML 1ML VIAL/SYRINGE (J2270) IV ONE (12:40)
[2020-06-19] MEDS ORDERED: ONDANSETRON 4MG/2ML VIAL IV ONE (12:40)
[2020-06-19] MEDS ORDERED: NS 500 ML IV ONE (12:40)
[2020-06-19 12:51] LABS: ALT/SGPT 201 U/L (12-78); BILIRUBIN,DIRECT < 0.1 MG/DL (0.0-0.2); BILIRUBIN,TOTAL 0.2 MG/DL (0.2-1.0); LIPASE 2020 U/L (73-393); TOTAL PROTEIN 7.9 GM/DL (6.4-8.2)
[2020-06-19] MEDS ORDERED: ISOVUE-370 76% 100ML VIAL As Ordered ONE (13:05)
--- NOTE | 2020-06-19 13:48 | REP ---
INDICATION: upper abd pain, elevated lipase COMPARISON: None. TECHNIQUE: CT Scan of the abdomen and pelvis was performed with intravenous administration of 100 cc of Isovue 370, without oral contrast. Sagittal and coronal reconstruction images are performed. FINDINGS: Lung bases: Unremarkable. Liver: There is mild hepatomegaly, the length of the liver is approximately 19 cm. I suspect diffuse fatty infiltration of the liver. No focal mass is seen. Gallbladder: Prior cholecystectomy. Prominent common bile duct is similar to the prior study. Spleen: Normal. Adrenals: Normal. Pancreas: Normal. Kidneys: Normal. Small and large bowel: Unremarkable. No free air or obstruction. Free fluid: None. Abdominal aorta: No aneurysm or dissection. Adenopathy: None. Appendix: Prior appendectomy. Osseous structures: Unremarkable. Pelvis: No mass. IMPRESSION: No acute abnormalities identified. <Electronically signed by Emir Bangura > 06/19/20 [id number]
[2020-06-19] MEDS ORDERED: MORPHINE 2 MG/ML 1ML VIAL (J2270) IV ONE (13:55)
[2020-06-19] MEDS ORDERED: PROMETHAZINE INJ 25 MG/ML VIAL (J2550) IV ONE (14:35)
[2020-06-19] MEDS ORDERED: DEXTROSE 50% 50 ML SYRINGE IV PRN (14:40)
[2020-06-19] MEDS ORDERED: HumaLOG INSULIN (NovoLOG) PER UNIT SC SCH (14:40)
[2020-06-19] MEDS ORDERED: SUMAtriptan SUCCINATE 25 MG TAB PO PRN (14:40)
[2020-06-19] MEDS ORDERED: ACETAMINOPHEN TAB 650MG DOSE (2X325MG) PO PRN (14:40)
[2020-06-19] MEDS ORDERED: DOCUSATE SODIUM 100MG CAPSULE PO PRN (14:40)
[2020-06-19] MEDS ORDERED: GLUCAGON INJ 1MG VIAL SC PRN (14:40)
[2020-06-19] MEDS ORDERED: GLUCOSE 4GM CHEW TABLET PO PRN (14:40)
[2020-06-19 14:52] LABS: RSV AMPLIFICATION NEGATIVE (NEGATIVE)
[2020-06-19] MEDS ORDERED: CYCL-707 PO (15:16)
[2020-06-19] MEDS ORDERED: HYDR-4571 PO (15:16)
[2020-06-19] MEDS ORDERED: PRAZ2CAP40 PO (15:16)
--- NOTE | 2020-06-19 15:34 | HPEPDOC ---
[facility] Medical History & Physical Date of Admission Jun 19, 2020 Date of Service: Jun 19, 2020 Attending Physician: DANI MENDENHALL MD History and Physical CHIEF COMPLAINT: epigastric pain radiating to the back wtih nausea and mild diarrhea HISTORY OF PRESENT ILLNESS: 49-year-old W with a history of alpha-1 antitrypsin deficiency, unprovoked PE on eliquis, IDDM, prior history of multiple episodes of pancreatitis, s/p cholecystectomy, history of non obstructive renal calculi, who presents with worsening epigastric pain radiating to the back with nausea and mild diarrhea over the last 24h, with inability to take PO. She denied fevers, chills, chest pain, palpitations, constipation, hematemesis, hematochezia, recent weight loss, shortness of breath or cough. While in the ED, she was hemodynamically stable and afebrile but uncomfortable in significant distress fromthe abdominal pain. Workup revealed WBC 8.5, hgb 14.8, platelets 248, na 139, K 3.8, Cr 0.5, AST 110, ALT 201, alk phos 313, troponin negative, non ischemic EKG in NSR, and her lipase was 2020. She had a CT A/P that revealed that she had a prior cholecystectomy with no noted acute abdominal pathology. She is now being admitted for pancreatitis for supportive management and pain control. Of note, she has a history of chronic transaminitis 2/2 [id number] deficiency. PAST MEDICAL HISTORY: 1. Alpha-1 antitrypsin deficiency followed by Dr. Mccurdy. 2. Gastroesophageal reflux disease. 3. Fibromyalgia 4. Anxiety, depression, PTSD 6. Dyslipidemia 7. Hypothyroidism 8. Migraine headaches 10. Insomnia 11. Insulin-dependent diabetes mellitus 12. Obstructive sleep apnea 13. COPD. PAST SURGICAL HISTORY: 1. Cholecystectomy. 2. Appendectomy. 3. 3 4. Orthodontic surgery 5. Port placement and removal for 1 antitrypsin deficiency infusions. SOCIAL HISTORY: Former smoker of 20 pack years. Rare consumption of alcohol No illicit drug use FAMILY HISTORY: Cancer - mother Hypertension and diabetes - mother and father REVIEW OF SYSTEMS: 10 systems reviewed and negative other than HPI PHYSICAL EXAMINATION: VITAL SIGNS: HDS, afebrile, saturating well on room air GENERAL: Middle-aged woman, obese, in moderate distress, AOx3 HEENT: Moist mucous membranes, NCAT, PERRLA, EOMI CARDIOVASCULAR: RRR, S1 S2, no mrg RESPIRATORY: Clear to auscultation bilaterally without wheezing, rhonchi or crane chaser ckles ABDOMINAL: Normoactive bowel sounds, soft, severe epigastric pain with generally tender abdomen throughout with some palpable hepatomegaly, no rebound tenderness, no shifting dullness, no involuntary guarding. EXTREMITIES: No clubbing cyanosis or edema, WWP, 2+ DP pulses NEUROLOGICAL: Spontaneously moves all 4 extremities, cranial nerves 2-12 grossly intact no gross focal deficits PSYCHOLOGICAL: AOx3, normal affect LABORATORY DATA and IMAGING: As summarized above. See below for details ASSESSMENT: 49-year-old W with a history of alpha-1 antitrypsin deficiency, unprovoked PE on eliquis, IDDM, prior history of pancreatitis, history of non obstructive renal calculi who is admitted for acute pancreatitis. PROBLEMS: 1. Acute pancreatitis: Normal appearing pancreas at this time on CT but with elevated lipase on labs and severe abdominal pain and inability to take PO. -s/p cholecystectomy -Has history of chronic transaminitis related to alpha-1 antitrypsin deficiency, unlikely 2/2 retained stones. -NPO until symptom improvement -NS at 250cc/hr -zofran PRN -morphine 2mg Q4HP for abdominal pain and PRN toradol IV as well -Check triglycerides and trend lipase with AM CBC and CMP 2.Hypertension: -continue her amlodipine and lisinopril 3. Hypothyroidism: -continue levothyroxine 4. GERD: -protonix 40 BID IV 5. Chronic pain: -morphine 2Q4HP 6. Seasonal allergies: -continue home cetirizine 7. Chronic constipation -Colace PRN 8. Migraine headaches: -PRN sumatriptan and daily Topamax 9. Diabetes mellitus: -Q6H SSI -FSBG Q6H -hypoglycemia protocol -reduce home levemir to 37u BID from 75u BID while NPO 11. PTSD/mood disorder: -continue venlafaxine and buspar 12. Chronic transaminitis: in the setting of alpha 1 antitrypsin deficiency -daily CMP -previously noted steatosis on CT A/P 13. History of unprovoked PE -continue home eliquis 14. COPD/asthma: no evidence of acute exacerbation -continue home montelukast, albuterol PRN 15. Chronic pain: -continue home tizanidine, gabapentin DVT ppx: eliquis Dispo: inpatient, med/surg Vital Signs Vital Signs Date Time Temp Pulse Resp B/P (MAP) Pulse Ox O2 Delivery O2 Flow Rate FiO2 06/19/20 14:17 97.5 77 18 158/96 (116) 97 Room Air Laboratory Data Labs 24H Laboratory Tests 2 06/19/20 11:22: Immature Granulocyte % (Auto) 0.5, Neutrophils (%) (Auto) 51.5, Lymphocytes (%) (Auto) 35.4, Monocytes (%) (Auto) 8.4H, Eosinophils (%) (Auto) 3.5H, Basophils (%) (Auto) 0.7, Neutrophils # (Auto) 4.4, Lymphocytes # (Auto) 3.0, Monocytes # (Auto) 0.7, Eosinophils # (Auto) 0.3, Basophils # (Auto) 0.1, Nucleated Red Blood Cells % (auto) 0.0, Prothrombin Time 13.7, Prothromb Time International Ratio 1.03, Activated Partial Thromboplast Time 28.0, Total Bilirubin 0.2, Direct Bilirubin < 0.1, Aspartate Amino Transf (AST/SGOT) 110H, Alanine Aminotransferase (ALT/SGPT) 201H, Alkaline Phosphatase 313H, Total Protein 7.9, Albumin 4.0, Albumin/Globulin Ratio 1.0L, Lipase 2020H 06/19/20 11:35: Urine Color YELLOW, Urine Appearance HAZY, Urine pH 5.0, Urine Specific [place] 1.037, Urine Protein NEGATIVE, Urine Glucose (UA) 3+H, Urine Ketones NEGATIVE, Urine Blood NEGATIVE, Urine Nitrite NEGATIVE, Urine Bilirubin NEGATIVE, Urine Urobilinogen 0.2, Urine Leukocyte Esterase NEGATIVE, Urine WBC (Auto) 2, Urine RBC (Auto) 1, Urine Hyaline Casts (Auto) 0, Urine Bacteria (Auto) NEGATIVE, Ur ine Squamous Epithelial Cells 1, Urine Mucus (Auto) SMALL, Urine Sperm (Auto) 06/19/20 12:00: POC Glucose (Misc Panel) 356H, POC Sodium (Misc Panel) 139, POC Potassium (Misc Panel) 3.8, POC Chloride (Misc Panel) 102, POC Total CO2 (Misc Panel) 24.0, POC Blood Urea Nitrogen (Misc Panel 14, POC Ionized Calcium (Misc Panel) 4.8, POC Creatinine (Misc Panel) 0.5L, POC Hematocrit (Misc Panel) 46.0 06/19/20 14:02: CBC/BMP Laboratory Tests 06/19/20 11:22 Home Medications Scheduled Apixaban (Eliquis) 5 Mg Tablet, 5 MG PO BID Buspirone HCl (Buspirone HCl) 30 Mg Tablet, 30 MG PO BID Cetirizine HCl (Cetirizine HCl) 10 Mg Tab, 10 MG PO DAILY Cholecalciferol (Vitamin D3) (Vitamin D3) 25 Mcg Capsule, 25 MCG PO DAILY Ertugliflozin Pidolate (Steglatro) 5 Mg Tablet, 5 MG PO DAILY HAS BEEN OUT FOR ABOUT 1 WEEK Ferrous Sulfate (Ferrous Sulfate) 325 Mg Tablet, 325 MG PO DAILY Gabapentin (Gabapentin) 600 Mg Tablet, 600 MG PO TID Insulin Glargine,Hum.rec.anlog (Basaglar Kwikpen U-100) 100 Unit/1 Ml Insuln.pen, 80 UNITS SC BID Insulin Human Regular (Humulin R) 1 Units/0.01 Ml Soln, 1 DOSE SC ACHS PER SLIDING SCALE Levothyroxine Sodium (Synthroid) 25 Mcg Tab, 25 MCG PO DAILY Lisinopril (Lisinopril) 10 Mg Tab, 10 MG PO DAILY Montelukast Sodium (Montelukast Sodium) 10 Mg Tablet, 10 MG PO DAILY Pantoprazole Sodium (Protonix) 40 Mg Tab, 40 MG PO DAILY Prazosin HCl (Prazosin HCl) 2 Mg Capsule, 4 MG PO QHS Tizanidine HCl (Tizanidine HCl) 4 Mg Tab, 4 MG PO TID Topiramate (Topiramate) 50 Mg Tab, 50 MG PO BID Venlafaxine HCl (Venlafaxine HCl ER) 150 Mg Tab.er.24, 150 MG PO DAILY Scheduled PRN Albuterol Sulfate (Ventolin Hfa) 108 Mcg/Act Aer, 2 PUFFS INH Q4H PRN for SHORTNESS OF BREATH Cyclobenzaprine HCl (Cyclobenzaprine HCl) 10 Mg Tablet, 10 MG PO TID PRN for MUSCLE SPASMS Docusate Sodium (Colace) 100 Mg Cap, 100 MG PO DAILY PRN for CONSTIPATION Hydrocodone/Acetaminophen (Hydrocodone-Acetamin 5-325 mg) 1 Each Tablet, 1 TAB PO Q6H PRN for PAIN Ipratropium/Albuterol Sulfate (Iprat-Albut 0.5-3(2.5) mg/3 ml) 3 Ml Ampul.neb, 1 VIAL NEB Q4H PRN for SHORTNESS OF BREATH Ondansetron (Ondansetron Odt) 4 Mg Tab.rapdis, 4 MG PO Q6-8H PRN for nausea/vomiting Polyvinyl Alcohol (Artificial Tears) 1.4 % Debora, 1 DROP OU BID PRN for DRY EYES Sumatriptan Succinate (Sumatriptan Succinate) 50 Mg Tab, 50 MG PO BID PRN for MIGRAINE Triamcinolone Acetonide (Triamcinolone Acetonide) 0.1 % Lot, 1 DOSE EXT BID PRN for RASH USES ON ELBOWS AND FINGERS Allergies Coded Allergies: meclizine (Verified Allergy, Severe, shock, 05/06/20) prednisone (Verified Allergy, Intermediate, hives, 05/06/20) 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
[2020-06-19] MEDS: KETOROLAC 30 MG/ML 1ML VIAL IV PRN ×2 (16:05→22:31)
[2020-06-19 16:42] VITALS: BP 137/88
[2020-06-19] MEDS: NS 1,000 ML IV SCH ×3 (17:12→22:32)
[2020-06-19] MEDS: tiZANidine 4 MG TAB PO SCH ×2 (17:12→21:23)
[2020-06-19] MEDS: GABAPENTIN 300 MG CAP PO SCH ×2 (17:12→21:19)
[2020-06-19] MEDS: HumaLOG INSULIN (NovoLOG) PER UNIT SC SCH (18:30)
[2020-06-19] MEDS ORDERED: FLUCONAZOLE 200 MG in IV 1 EA IV ONE (20:40)
[2020-06-19] MEDS ORDERED: PRAZOSIN 1 MG CAP PO SCH (21:00)
[2020-06-19] MEDS: busPIRone 10 MG TAB PO SCH (21:18)
[2020-06-19] MEDS: PANTOPRAZOLE 40MG VIAL (C9113 PER 1) IV SCH (21:18)
[2020-06-19] MEDS: TOPIRAMATE (TopAMAX) 25 MG TAB PO SCH (21:19)
[2020-06-19] MEDS: APIXABAN 5 MG TAB (ELIQUIS) PO SCH (21:23)
[2020-06-19] MEDS: MORPHINE 2 MG/ML 1ML VIAL (J2270) IV PRN (21:24)
[2020-06-19] MEDS: LEVEMIR (INSULIN DETEMIR) 1 UNITS/0.01ML SC SCH (21:40)
[2020-06-19 22:00] VITALS: BP 134/87
[2020-06-20] MEDS: HumaLOG INSULIN (NovoLOG) PER UNIT SC SCH ×5 (00:29→23:56)
[2020-06-20] MEDS: NS 1,000 ML IV SCH ×3 (03:11→09:52)
[2020-06-20 06:00] VITALS: BP 128/89
[2020-06-20] MEDS ORDERED: LEVOTHYROXINE 25MCG TABLET (0.025MG) PO SCH (06:00)
[2020-06-20 06:40] LABS: HEMATOCRIT 38.7 % (36.0-47.0); MEAN CORPUSCULAR HEMOGLOBIN 32.4 pg (27.0-33.0); MEAN CORPUSCULAR VOLUME 104.6 fl (80.0-96.0); PLATELET COUNT, AUTOMATED 194 10^3/uL (150-450); WHITE BLOOD COUNT 6.2 10^3/uL (4.0-10.0)
[2020-06-20] MEDS: KETOROLAC 30 MG/ML 1ML VIAL IV PRN ×3 (06:41→21:20)
[2020-06-20 07:02] LABS: ALBUMIN 3.1 GM/DL (3.2-5.2); ALT/SGPT 204 U/L (12-78); BILIRUBIN,TOTAL 0.2 MG/DL (0.2-1.0); BLOOD UREA NITROGEN 16 MG/DL (7-18); CALCIUM LEVEL 7.9 MG/DL (8.5-10.1); CARBON DIOXIDE LEVEL 27 MEQ/L (21-32); CHLORIDE LEVEL 114 MEQ/L (98-107); CREATININE FOR GFR 0.56 MG/DL (0.55-1.30); GLOMERULAR FILTRATION RATE > 60.0 (>58); GLUCOSE, FASTING 98 MG/DL (70-100); LIPASE 158 U/L (73-393); MAGNESIUM LEVEL 1.9 MG/DL (1.8-2.4); POTASSIUM SERUM 3.2 MEQ/L (3.5-5.1); SODIUM LEVEL 146 MEQ/L (136-145); TOTAL PROTEIN 6.2 GM/DL (6.4-8.2); TRIGLYCERIDES LEVEL 307 MG/DL (<150)
[2020-06-20] MEDS ORDERED: VENLAFAXINE **XR** 75MG CAPSULE PO SCH (09:00)
[2020-06-20] MEDS ORDERED: CETIRIZINE (ZyrTEC) 10 MG TAB PO SCH (09:00)
[2020-06-20] MEDS ORDERED: FERROUS SULFATE 325MG TAB PO SCH (09:00)
[2020-06-20] MEDS ORDERED: MONTELUKAST 10 MG TAB PO SCH (09:00)
[2020-06-20] MEDS ORDERED: TAMSULOSIN 0.4 MG CAP PO SCH (09:00)
[2020-06-20] MEDS: GABAPENTIN 300 MG CAP PO SCH (09:52)
[2020-06-20] MEDS: TOPIRAMATE (TopAMAX) 25 MG TAB PO SCH (09:54)
[2020-06-20] MEDS: busPIRone 10 MG TAB PO SCH (09:54)
[2020-06-20] MEDS: PANTOPRAZOLE 40MG VIAL (C9113 PER 1) IV SCH ×2 (09:54→21:19)
[2020-06-20] MEDS: APIXABAN 5 MG TAB (ELIQUIS) PO SCH (09:54)
[2020-06-20] MEDS: LEVEMIR (INSULIN DETEMIR) 1 UNITS/0.01ML SC SCH (09:55)
[2020-06-20] MEDS: tiZANidine 4 MG TAB PO SCH (09:55)
[2020-06-20] MEDS: MORPHINE 2 MG/ML 1ML VIAL (J2270) IV PRN (10:05)
[2020-06-20] MEDS: KCL 10MEQ/100ML SWI (KRUN) 10 MEQ in IV 1 EA IV SCH ×5 (12:07→16:56)
[2020-06-20] MEDS: MORPHINE 4 MG/ML 1ML VIAL/SYRINGE (J2270) IV PRN ×2 (12:08→18:44)
[2020-06-20 13:34] VITALS: BP 134/88
--- NOTE | 2020-06-20 13:39 | IPNPDOC ---
Date Seen The patient was seen on 06/20/20. Progress Note SUBJECTIVE: Pain severe on exam 9/10 on pain scale, modified pain regimen. Continued nausea. Denies chest pain, fevers, chills. OBJECTIVE: PHYSICAL EXAMINATION: VITAL SIGNS: Please see below GENERAL: appears uncomfortable, AAOx3 HEENT: NC/AT, PERRLA, EOMI CARDIOVASCULAR: RRR, S1 S2, no mrg RESPIRATORY: Clear to auscultation bilaterally without wheezing, rhonchi or crackles ABDOMINAL: Normoactive bowel sounds, soft, severe epigastric pain/ RUQ pain with generally tender abdomen throughout with some palpable hepatomegaly, no rebound tenderness, no shifting dullness EXTREMITIES: No clubbing cyanosis or edema, WWP, 2+ DP pulses NEUROLOGICAL: Spontaneously moves all 4 extremities, cranial nerves 2-12 grossly intact no gross focal deficits PSYCHOLOGICAL: AOx3, normal affect LABORATORY DATA: Please see below IMAGING: CT abd/pelvis: No acute abnormalities identified. ASSESSMENT: 49-year-old W with a history of alpha-1 antitrypsin deficiency, unprovoked PE on eliquis, IDDM, prior history of pancreatitis, history of non obstructive renal calculi who is admitted for acute pancreatitis. PROBLEMS: Acute recurrent pancreatitis -Lipase now wnl; however, continued abd pain severe, nausea: Normal appearing pancreas at this time on CT but with elevated lipase on labs and severe abdominal pain and inability to take PO. -s/p cholecystectomy, hx of chronic transaminitis related to alpha-1 antitrypsin deficiency, unlikely 2/2 retained stones. -TG 307, AST/ALT elevated but not worsened (chronic) -States she has been referred to GI as o/p but has not yet seen. -Trend daily CMP -IVF sat 150 cc/hr, zofran PRN, morphine PRN based on pain scale, IV toradol -Remains NPO, advance diet as tolerated Diabetes mellitus: -Q6H SSI -FSBG Q6H -hypoglycemia protocol -NPO -stopping levemir while NPO as BS are borderline low -Start D5W0.9% NS if BS drop any lower than normal Hypokalemia, acute likely 2/2 to decreased Po intake -50 mEq IV KCl to be given -F/u daily labs Hypothyroidism: -Holding PO levothyroxine GERD: - protonix 40 BID IV Chronic pain: -morphine prn Seasonal allergies: -Holding PO cetirizine Chronic constipation -Holding PO Colace PRN Migraine headaches: -Holding PO PRN sumatriptan and daily Topamax Hypertension: -Holding PO amlodipine and lisinopril PTSD/mood disorder: -Holding PO venlafaxine and buspar Chronic transaminitis: in the setting of alpha 1 antitrypsin deficiency -daily CMP not worsened -previously noted steatosis on CT A/P History of unprovoked PE -Holding PO eliquis COPD/asthma: no evidence of acute exacerbation -Holding PO home montelukast, albuterol PRN Chronic pain: -Holding PO tizanidine, gabapentin DVT ppx -Lovenox BID therapeutic dosing Disposition : inpatient, med/surg VS, I&O, 24H, Fishbone Vital Signs/I&O Vital Signs Date Time Temp Pulse Resp B/P (MAP) Pulse Ox O2 Delivery O2 Flow Rate FiO2 06/20/20 12:18 16 Room Air 06/20/20 09:53 133/88 06/20/20 06:00 97.6 73 98 I&O- Last 24 Hours up to 6 AM 06/20/20 06:00 Intake Total 3600 ml Output Total 500 ml Balance 3100 ml Laboratory Data 24H LABS Laboratory Tests 2 06/19/20 14:02: Coronavirus (COVID-19)(PCR) NEGATIVE, Influenza Type A (RT-PCR) NEGATIVE, Influenza Type B (RT-PCR) NEGATIVE, Respiratory Syncytial Virus (PCR) NEGATIVE 06/19/20 15:55: Bedside Glucose (Misc Panel) 167H 06/19/20 17:51: Bedside Glucose (Misc Panel) 143H 06/19/20 21:12: Bedside Glucose (Misc Panel) 112H 06/20/20 00:10: Bedside Glucose (Misc Panel) 136H 06/20/20 05:53: Nucleated Red Blood Cells % (auto) 0.0, Anion Gap 5L, Glomerular Filtration Rate > 60.0, Calcium Level 7.9L, Magnesium Level 1.9, Total Bilirubin 0.2, Aspartate Amino Transf (AST/SGOT) 158H, Alanine Aminotransferase (ALT/SGPT) 204H, Alkaline Phosphatase 184H, Total Protein 6.2#L, Albumin 3.1#L, Albumin/Globulin Ratio 1.0L, Triglycerides Level 307H, Lipase 158 06/20/20 06:40: Bedside Glucose (Misc Panel) 103 06/20/20 12:12: Bedside Glucose (Misc Panel) 84 CBC/BMP Laboratory Tests 06/20/20 05:53 Lesvia Donovan MD Jun 20, 2020 13:39
[2020-06-20] MEDS: D5W/0.9% SODIUM CHLORIDE 1,000 ML IV SCH ×2 (17:01→23:56)
[2020-06-20] MEDS: ONDANSETRON 4MG/2ML VIAL IV PRN (21:19)
[2020-06-20 22:00] VITALS: BP 150/91
[2020-06-20] MEDS ORDERED: KETOROLAC 30 MG/ML 1ML VIAL IV ONE (22:25)
[2020-06-20] MEDS ORDERED: KETOROLAC 30 MG/ML 1ML VIAL As Ordered ONE (23:51)
[2020-06-20] MEDS ORDERED: HumaLOG INSULIN (NovoLOG) PER UNIT As Ordered ONE (23:52)
[2020-06-21] MEDS: HumaLOG INSULIN (NovoLOG) PER UNIT SC SCH ×4 (05:56→21:00)
[2020-06-21] MEDS: ONDANSETRON 4MG/2ML VIAL IV PRN (05:56)
[2020-06-21] MEDS: KETOROLAC 30 MG/ML 1ML VIAL IV PRN (05:58)
[2020-06-21 06:00] VITALS: BP 145/86
[2020-06-21] MEDS: D5W/0.9% SODIUM CHLORIDE 1,000 ML IV SCH (08:09)
[2020-06-21] MEDS: PANTOPRAZOLE 40MG VIAL (C9113 PER 1) IV SCH (08:09)
[2020-06-21] MEDS ORDERED: LIDOCAINE 1% MDV 20ML VIAL As Ordered ONE (08:20)
[2020-06-21] MEDS ORDERED: ENOXAPARIN 40MG/0.4ML SYRINGE (J1650 PER 10MG) SC SCH (09:00)
[2020-06-21] MEDS ORDERED: POLYVINYL ALCOHOL OPHTH SOLN 15 ML(LIQUITEARS) OU PRN (11:25)
[2020-06-21] MEDS ORDERED: IPRATROPIUM 0.5MG/ALBUTEROL 2.5MG INH SOL UD 3ML (DUONEB) NEB PRN (11:25)
[2020-06-21] MEDS ORDERED: ALBUTEROL 90 MCG/ACT 8GM HFA INHALER INH PRN (11:25)
[2020-06-21] MEDS ORDERED: CYCLOBENZAPRINE 10MG TABLET PO PRN (11:25)
[2020-06-21] MEDS ORDERED: DOCUSATE SODIUM 100MG CAPSULE PO PRN (11:25)
[2020-06-21] MEDS ORDERED: ONDANSETRON 4 MG ORAL DISINTEGRATING TAB PO PRN (11:25)
[2020-06-21] MEDS: MORPHINE 2 MG/ML 1ML VIAL (J2270) IV PRN ×3 (11:31→21:26)
[2020-06-21 11:37] LABS: HEMATOCRIT 41.1 % (36.0-47.0); HEMOGLOBIN 13.4 g/dl (12.0-15.5); MEAN CORPUSCULAR HEMOGLOBIN 33.2 pg (27.0-33.0); MEAN CORPUSCULAR HGB CONC 32.6 g/dl (32.0-36.5); MEAN CORPUSCULAR VOLUME 101.7 fl (80.0-96.0); PLATELET COUNT, AUTOMATED 205 10^3/uL (150-450); RED BLOOD COUNT 4.04 10^6/uL (4.00-5.40); WHITE BLOOD COUNT 6.8 10^3/uL (4.0-10.0)
[2020-06-21 12:10] LABS: ALBUMIN 3.7 GM/DL (3.2-5.2); ALT/SGPT 235 U/L (12-78); BILIRUBIN,TOTAL 0.3 MG/DL (0.2-1.0); BLOOD UREA NITROGEN 5 MG/DL (7-18); CALCIUM LEVEL 9.1 MG/DL (8.5-10.1); CARBON DIOXIDE LEVEL 24 MEQ/L (21-32); CHLORIDE LEVEL 110 MEQ/L (98-107); CREATININE FOR GFR 0.49 MG/DL (0.55-1.30); GLOMERULAR FILTRATION RATE > 60.0 (>58); GLUCOSE, FASTING 254 MG/DL (70-100); LIPASE 224 U/L (73-393); POTASSIUM SERUM 3.8 MEQ/L (3.5-5.1); SODIUM LEVEL 140 MEQ/L (136-145); TOTAL PROTEIN 6.9 GM/DL (6.4-8.2)
[2020-06-21 14:00] VITALS: BP 172/104
[2020-06-21] MEDS: SUMAtriptan SUCCINATE 25 MG TAB PO PRN (15:16)
[2020-06-21] MEDS: tiZANidine 4 MG TAB PO SCH ×2 (15:16→21:25)
[2020-06-21] MEDS: GABAPENTIN 300 MG CAP PO SCH ×2 (15:16→21:25)
[2020-06-21 16:02] VITALS: BP 182/108
[2020-06-21] MEDS ORDERED: FUROSEMIDE 40MG/4ML VIAL (J1940) IV ONE (16:10)
--- NOTE | 2020-06-21 16:20 | IPNPDOC ---
Date Seen The patient was seen on 06/21/20. Progress Note SUBJECTIVE: pain much improved this AM, advanced to CLD. Stopped IVFs due to incr BP, gave dose of lasix, resumed home meds. Denies n/v, chest pain, fevers, chills. OBJECTIVE: PHYSICAL EXAMINATION: VITAL SIGNS: Please see below GENERAL: appears uncomfortable, AAOx3 HEENT: NC/AT, PERRLA, EOMI CARDIOVASCULAR: RRR, S1 S2, no mrg RESPIRATORY: Clear to auscultation bilaterally without wheezing, rhonchi or crackles ABDOMINAL: Normoactive bowel sounds, soft, mild epigastric pain/ RUQ pain in abdomen , no hepatomegaly, no rebound tenderness, no shifting dullness EXTREMITIES: No clubbing cyanosis or edema, WWP, 2+ DP pulses NEUROLOGICAL: Spontaneously moves all 4 extremities, cranial nerves 2-12 grossly intact no gross focal deficits PSYCHOLOGICAL: AOx3, normal affect LABORATORY DATA: Please see below IMAGING: CT abd/pelvis: No acute abnormalities identified. ASSESSMENT: 49-year-old W with a history of alpha-1 antitrypsin deficiency, unprovoked PE on eliquis, IDDM, prior history of pancreatitis, history of non obstructive renal calculi who is admitted for acute pancreatitis. PROBLEMS: Acute recurrent pancreatitis -Improved abd pain , nausea, WBC wnl -s/p cholecystectomy, hx of chronic transaminitis related to alpha-1 antitrypsin deficiency, unlikely 2/2 retained stones. -TG 307, AST/ALT elevated but not worsened (chronic) -States she has been referred to GI as o/p but has not yet seen. -Trend daily CMP -D/c IVF, start CLD and can advance further tonight if tolerating, deescalating pain regimen Diabetes mellitus -BS increasing as CLD was started -Watch closely -Advance diet as tolerated to consistent carb, FS AC/HS, ISS -hypoglycemia protocol Hypertension, uncontrolled -BP 180's systolic -Stopped IVFs -Giving 40 mg IV lasix, c/w PO lisinopril Hypokalemia, acute likely 2/2 to decreased Po intake- resolved -F/u daily labs Hypothyroidism: -C/w PO levothyroxine GERD: -C/w protonix 40 daily Chronic pain -C/w pain regimen Seasonal allergies -PO cetirizine Chronic constipation -PO Colace PRN Migraine headaches: -PO PRN sumatriptan and daily Topamax PTSD/mood disorder -PO venlafaxine and buspar Chronic transaminitis: in the setting of alpha 1 antitrypsin deficiency -daily CMP not worsened -previously noted steatosis on CT A/P History of unprovoked PE -PO eliquis COPD/asthma: no evidence of acute exacerbation -PO home montelukast, albuterol PRN Chronic pain: -PO tizanidine, gabapentin DVT ppx -Eliquis BID DISPOSITION: C/w treatment above. PT/OT, plan is discharge home when medically improved. VS, I&O, 24H, Fishbone Vital Signs/I&O Vital Signs Date Time Temp Pulse Resp B/P (MAP) Pulse Ox O2 Delivery O2 Flow Rate FiO2 06/21/20 16:02 182/108 (132) 06/21/20 15:55 18 Room Air 06/21/20 14:00 97.8 89 95 I&O- Last 24 Hours up to 6 AM 06/21/20 06:00 Intake Total 3175 ml Output Total 3125 ml Balance 50 ml Laboratory Data 24H LABS Laboratory Tests 2 06/20/20 16:34: Bedside Glucose (Misc Panel) 73 06/20/20 23:43: Bedside Glucose (Misc Panel) 123H 06/21/20 05:49: Bedside Glucose (Misc Panel) 169H 06/21/20 11:08: Nucleated Red Blood Cells % (auto) 0.0, Anion Gap 6L, Glomerular Filtration Rate > 60.0, Calcium Level 9.1#, Total Bilirubin 0.3, Aspartate Amino Transf (AST/SGOT) 153H, Alanine Aminotransferase (ALT/SGPT) 235H, Alkaline Phosphatase 226H, Total Protein 6.9, Albumin 3.7, Albumin/Globulin Ratio 1.2, Lipase 224 06/21/20 11:09: Bedside Glucose (Misc Panel) 236H CBC/BMP Laboratory Tests 06/21/20 11:08 Current Medications Current Medications Medications (Trade) Dose Ordered Sig/Jonna Route PRN Reason Start Time Stop Time Status Last Admin Dose Admin Acetaminophen (Tylenol Tab) 650 mg Q4H PRN PO PAIN OR FEVER 06/19/20 14:40 06/20/20 13:31 DC 06/20/20 11:05 Albuterol Sulfate (Proventil, Ventolin Hfa) 2 puff Q4H PRN INH SHORTNESS OF BREATH 06/21/20 11:25 Albuterol/ Ipratropium (Duoneb (Ipr 0.5mg/Alb 2.5mg)) 3 ml Q4H PRN NEB SHORTNESS OF BREATH 06/21/20 11:25 Apixaban (Eliquis) 5 mg BID PO 06/19/20 21:00 06/20/20 13:31 DC 06/20/20 09:54 Apixaban (Eliquis) 5 mg BID PO 06/21/20 21:00 Artificial Tears (Akwa Tears) 1 drop BID PRN OU DRY EYES 06/21/20 11:25 Buspirone HCl (Buspar) 30 mg BID PO 06/19/20 21:00 06/20/20 13:31 DC 06/20/20 09:54 Buspirone HCl (Buspar) 30 mg BID PO 06/21/20 21:00 Cetirizine HCl (ZyrTEC) 10 mg DAILY PO 06/20/20 09:00 06/20/20 13:31 DC 06/20/20 09:52 Cetirizine HCl (ZyrTEC) 10 mg DAILY PO 06/22/20 09:00 Cyclobenzaprine HCl (Flexeril) 10 mg TID PRN PO MUSCLE SPASMS 06/21/20 11:25 Dextrose (Dextrose 50%) 25 ml ASDIRECTED PRN IV SEE LABEL COMMENTS 06/19/20 14:40 Dextrose/Sodium Chloride 1,000 ml @ 100 mls/hr Q10H IV 06/20/20 16:55 06/21/20 08:09 Docusate Sodium (Colace) 100 mg DAILY PRN PO CONSTIPATION 06/21/20 11:25 Docusate Sodium (Colace) 100 mg DAILYPRN PRN PO constipation 06/19/20 14:40 06/20/20 13:32 DC Enoxaparin Sodium (Lovenox) 40 mg DAILY SC 06/21/20 09:00 06/21/20 11:26 DC 06/21/20 08:09 Ferrous Sulfate (Ferrous Sulfate) 325 mg DAILY PO 06/20/20 09:00 06/20/20 13:31 DC 06/20/20 09:54 Ferrous Sulfate (Ferrous Sulfate) 325 mg DAILY PO 06/22/20 09:00 Gabapentin (Neurontin) 600 mg TID PO 06/19/20 16:00 06/20/20 13:31 DC 06/20/20 09:52 Gabapentin (Neurontin) 600 mg TID PO 06/21/20 16:00 06/21/20 15:16 Glucagon (Glucagon) 1 mg ASDIRECTED PRN SC SEE LABEL COMMENTS 06/19/20 14:40 Glucose (Glucose) 16 GM ASDIRECTED PRN PO SEE LABEL COMMENTS 06/19/20 14:40 Heparin Sodium (Heparin (Flush)) 200 units ASDIRECTED PRN IV SEE LABEL COMMENTS 06/21/20 09:40 Heparin Sodium (Heparin (Flush)) 200 units PICC IV 06/21/20 18:00 Home Med (Med Rec Complete!) ASDIRECTED XX 06/19/20 15:20 06/19/20 15:21 DC Insulin Detemir (Levemir Insulin) 30 units BID SC 06/19/20 21:00 06/20/20 13:38 DC 06/20/20 09:55 Insulin Human Lispro (HumaLOG INSULIN) SEE PROTOCOL TABLE Q6H SC 06/19/20 14:40 06/19/20 15:40 DC Insulin Human Lispro (HumaLOG INSULIN) SEE PROTOCOL TABLE Q6H SC 06/19/20 18:00 06/21/20 12:53 Ketorolac Tromethamine (ToRADol) 15 mg Q6HP PRN IV MODERATE PAIN (PS 5-7) 06/19/20 14:40 06/21/20 11:26 DC 06/21/20 05:58 Levothyroxine Sodium (Synthroid) 25 mcg DAILY@06 PO 06/20/20 06:00 06/20/20 13:31 DC 06/20/20 05:45 Levothyroxine Sodium (Synthroid) 25 mcg DAILY@0600 PO 06/22/20 06:00 Lisinopril (Prinivil) 10 mg DAILY PO 06/20/20 09:00 06/20/20 13:32 DC 06/20/20 09:53 Lisinopril (Prinivil) 10 mg DAILY PO 06/21/20 09:00 06/21/20 12:51 Montelukast Sodium (Singulair) 10 mg DAILY PO 06/20/20 09:00 06/20/20 13:32 DC 06/20/20 09:52 Montelukast Sodium (Singulair) 10 mg DAILY PO 06/22/20 09:00 Morphine Sulfate (Morphine Sulfate Inj) 2 mg Q4H PRN IV MODERATE PAIN (PS 5-7) 06/19/20 20:40 06/21/20 15:55 Morphine Sulfate (Morphine Sulfate Inj) 4 mg Q4HP PRN IV SEVERE PAIN (PS 8-10) 06/20/20 11:35 06/21/20 11:26 DC 06/20/20 18:44 Ondansetron HCl (ZOFRAN INJection) 4 mg Q6HP PRN IV NAUSEA OR VOMITING 06/19/20 14:40 06/21/20 11:26 DC 06/21/20 05:56 Ondansetron HCl (Zofran Odt) 4 mg Q6HP PRN PO nausea/vomiting 06/21/20 11:25 06/21/20 15:55 Pantoprazole Sodium (Protonix) 40 mg BID IV 06/19/20 21:00 06/21/20 11:26 DC 06/21/20 08:09 Pantoprazole Sodium (Protonix) 40 mg DAILY PO 06/22/20 09:00 Potassium Chloride 10 meq/ IV Miscellaneous Supplies 100 ml @ 100 mls/hr Q1H IV 06/20/20 12:00 06/20/20 16:59 DC 06/20/20 16:56 Prazosin HCl (Minipress) 4 mg QHS PO 06/19/20 21:00 06/20/20 13:32 DC 06/19/20 21:22 Prazosin HCl (Minipress) 4 mg QHS PO 06/21/20 21:00 Sodium Chloride 1,000 ml @ 150 mls/hr Q6H40M IV 06/19/20 14:40 06/20/20 16:54 DC 06/20/20 09:52 Sodium Chloride (Saline Lock Flush) 10 ml ASDIRECTED PRN IV SEE LABEL COMMENTS 06/21/20 09:40 Sodium Chloride (Saline Lock Flush) 10 ml PICC IV 06/21/20 18:00 Sumatriptan Succinate (Imitrex) 50 mg BID PRN PO MIGRAINE 06/21/20 11:25 06/21/20 15:16 Sumatriptan Succinate (Imitrex) 50 mg BIDP PRN PO headache 06/19/20 14:40 06/20/20 13:32 DC Tamsulosin HCl (Flomax) 0.4 mg DAILY PO 06/20/20 09:00 06/20/20 13:32 DC 06/20/20 09:51 Tizanidine HCl (Zanaflex) 4 mg TID PO 06/19/20 16:00 06/20/20 13:32 DC 06/20/20 09:55 Tizanidine HCl (Zanaflex) 4 mg TID PO 06/21/20 16:00 06/21/20 15:16 Topiramate (TopAMAX) 50 mg BID PO 06/19/20 21:00 06/20/20 13:32 DC 06/20/20 09:54 Topiramate (TopAMAX) 50 mg BID PO 06/21/20 21:00 Venlafaxine HCl (Effexor Xr) 150 mg DAILY PO 06/20/20 09:00 06/20/20 13:32 DC 06/20/20 09:52 Venlafaxine HCl (Effexor Xr) 150 mg DAILY PO 06/22/20 09:00 Allergies Coded Allergies: meclizine (Verified Allergy, Severe, shock, 05/06/20) prednisone (Verified Allergy, Intermediate, hives, 05/06/20) 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
[2020-06-21] MEDS: SODIUM CHLORIDE 0.9% INJ 10 ML SYR IV SCH (16:54)
[2020-06-21 17:54] VITALS: BP 144/92
--- NOTE | 2020-06-21 18:06 | REP ---
INDICATION: poor venous access. COMPARISON: None. TECHNIQUE: The procedure was performed under the direct supervision of Dr. Bangura. The risks and benefits of the procedure were explained to the patient and informed consent was obtained. The right basilic vein was localized using ultrasound guidance. The skin was prepped and draped in a sterile fashion. 2% lidocaine was used as a local anesthetic. Using ultrasound guidance the basilic vein was cannulated and a 0.018 guidewire was inserted and advanced to the SVC using fluoroscopic guidance. The needle was removed and a 5.5 Finnish dilator and peel-away sheath was inserted over the guide wire. A 5.5 Finnish dual lumen catheter was cut to length of 39 cm. The dilator was removed and the catheter was inserted over the guide wire with the tip ending in the SVC. The peel-away sheath was removed and the catheter was flushed with heparinized saline as per Hospital protocol. The catheter was affixed to the skin and a sterile dressing was applied. The patient tolerated the procedure well and there were no immediate complications. 0.1 minutes of fluoro time was utilized for this procedure. FINDINGS: None IMPRESSION: PICC line insertion right basilic vein with the tip ending in the SVC. <Electronically signed by Vinicius Sánchez > 06/21/20 1620 <Electronically signed by Emir Bangura > 06/21/20 [id number]
[2020-06-21] MEDS: APIXABAN 5 MG TAB (ELIQUIS) PO SCH (21:23)
[2020-06-21] MEDS: busPIRone 10 MG TAB PO SCH (21:23)
[2020-06-21] MEDS: PRAZOSIN 1 MG CAP PO SCH (21:24)
[2020-06-21] MEDS: SODIUM CHLORIDE 0.9% INJ 10 ML SYR IV PRN (21:25)
[2020-06-21] MEDS: TOPIRAMATE (TopAMAX) 25 MG TAB PO SCH (21:25)
[2020-06-21 22:00] VITALS: BP 138/90
[2020-06-22 06:00] VITALS: BP 142/85
[2020-06-22] MEDS: SUMAtriptan SUCCINATE 25 MG TAB PO PRN (06:07)
[2020-06-22] MEDS: LEVOTHYROXINE 25MCG TABLET (0.025MG) PO SCH (06:07)
[2020-06-22] MEDS: SODIUM CHLORIDE 0.9% INJ 10 ML SYR IV SCH ×2 (06:07→18:07)
[2020-06-22] MEDS: SODIUM CHLORIDE 0.9% INJ 10 ML SYR IV PRN (06:08)
[2020-06-22 06:32] LABS: HEMOGLOBIN 13.2 g/dl (12.0-15.5); MEAN CORPUSCULAR HGB CONC 32.2 g/dl (32.0-36.5); MEAN CORPUSCULAR VOLUME 102.5 fl (80.0-96.0); PLATELET COUNT, AUTOMATED 194 10^3/uL (150-450)
[2020-06-22 06:58] LABS: ALBUMIN 3.4 GM/DL (3.2-5.2); ALT/SGPT 204 U/L (12-78); BILIRUBIN,TOTAL 0.4 MG/DL (0.2-1.0); BLOOD UREA NITROGEN 5 MG/DL (7-18); CALCIUM LEVEL 8.9 MG/DL (8.5-10.1); CARBON DIOXIDE LEVEL 26 MEQ/L (21-32); CHLORIDE LEVEL 109 MEQ/L (98-107); GLOMERULAR FILTRATION RATE > 60.0 (>58); GLUCOSE, FASTING 293 MG/DL (70-100); LIPASE 101 U/L (73-393); POTASSIUM SERUM 3.4 MEQ/L (3.5-5.1); SODIUM LEVEL 141 MEQ/L (136-145); TOTAL PROTEIN 6.7 GM/DL (6.4-8.2)
[2020-06-22] MEDS: HumaLOG INSULIN (NovoLOG) PER UNIT SC SCH ×4 (08:50→21:47)
[2020-06-22] MEDS: APIXABAN 5 MG TAB (ELIQUIS) PO SCH ×2 (08:53→21:45)
[2020-06-22] MEDS: PANTOPRAZOLE 40MG TAB (PROTONIX) PO SCH (08:53)
[2020-06-22] MEDS: tiZANidine 4 MG TAB PO SCH ×3 (08:54→21:45)
[2020-06-22] MEDS: CETIRIZINE (ZyrTEC) 10 MG TAB PO SCH (08:54)
[2020-06-22] MEDS: GABAPENTIN 300 MG CAP PO SCH ×3 (08:54→21:45)
[2020-06-22] MEDS: MONTELUKAST 10 MG TAB PO SCH (08:54)
[2020-06-22] MEDS: FERROUS SULFATE 325MG TAB PO SCH (08:54)
[2020-06-22] MEDS: VENLAFAXINE **XR** 75MG CAPSULE PO SCH (08:54)
[2020-06-22] MEDS: busPIRone 10 MG TAB PO SCH ×2 (08:55→21:45)
[2020-06-22] MEDS: TOPIRAMATE (TopAMAX) 25 MG TAB PO SCH ×2 (08:55→21:45)
[2020-06-22] MEDS ORDERED: POTASSIUM CHLORIDE 10 MEQ SR TABLET PO ONE (09:00)
[2020-06-22] MEDS ORDERED: LEVEMIR (INSULIN DETEMIR) 1 UNITS/0.01ML SC SCH ×3 (09:00→21:00)
--- NOTE | 2020-06-22 17:06 | IPNPDOC ---
Date Seen The patient was seen on 06/22/20. Progress Note SUBJECTIVE: Increased levemir to 40 BID today, increasing sugars with advancing diet. Pain improved. If does well with diet overnight, hoping for AM discharge. Denies n/v, chest pain, fevers, chills. OBJECTIVE: PHYSICAL EXAMINATION: VITAL SIGNS: Please see below GENERAL: appears uncomfortable, AAOx3 HEENT: NC/AT, PERRLA, EOMI CARDIOVASCULAR: RRR, S1 S2, no mrg RESPIRATORY: Clear to auscultation bilaterally without wheezing, rhonchi or crackles ABDOMINAL: Normoactive bowel sounds, soft,improving epigastric pain/ RUQ pain in abdomen , no hepatomegaly, no rebound tenderness, no shifting dullness EXTREMITIES: No clubbing cyanosis or edema, WWP, 2+ DP pulses NEUROLOGICAL: Spontaneously moves all 4 extremities, cranial nerves 2-12 grossly intact no gross focal deficits PSYCHOLOGICAL: AOx3, normal affect LABORATORY DATA: Please see below IMAGING: CT abd/pelvis: No acute abnormalities identified. ASSESSMENT: 49-year-old W with a history of alpha-1 antitrypsin deficiency, unprovoked PE on eliquis, IDDM, prior history of pancreatitis, history of non obstructive renal calculi who is admitted for acute pancreatitis. PROBLEMS: Acute recurrent pancreatitis -s/p cholecystectomy, hx of chronic transaminitis related to alpha-1 antitrypsin deficiency, unlikely 2/2 retained stones. -Improved abd pain , nausea, WBC wnl -Advanced diet further today, tolerating current pain regimen which has been deescalated -TG 307, AST/ALT elevated but not worsened (chronic) -States she has been referred to GI as o/p but has not yet seen. -Trend daily CMP -If does well tonight with dinner, can d/c in the AM Diabetes mellitus -BS increasing further -Started levemir 40 U BID today (normally takes 80 U BID) -Watch closely -Currently on consistent carb, FS AC/HS, ISS -hypoglycemia protocol Hypertension -BP better controlled after resuming home meds -C/w home meds Hypokalemia, acute likely 2/2 to decreased Po intake -Given 40 mEq today -F/u daily labs Hypothyroidism: -C/w PO levothyroxine GERD: -C/w protonix 40 daily Chronic pain -C/w pain regimen Seasonal allergies -PO cetirizine Chronic constipation -PO Colace PRN Migraine headaches: -PO PRN sumatriptan and daily Topamax PTSD/mood disorder -PO venlafaxine and buspar Chronic transaminitis: in the setting of alpha 1 antitrypsin deficiency -daily CMP not worsened -previously noted steatosis on CT A/P History of unprovoked PE -PO eliquis COPD/asthma: no evidence of acute exacerbation -PO home montelukast, albuterol PRN Chronic pain: -PO tizanidine, gabapentin DVT ppx -Eliquis BID DISPOSITION: C/w treatment above. If continues to improve, tolerate diet then d/c home in AM. VS, I&O, 24H, Fishbone Vital Signs/I&O Vital Signs Date Time Temp Pulse Resp B/P (MAP) Pulse Ox O2 Delivery O2 Flow Rate FiO2 06/22/20 09:08 158/100 06/22/20 06:00 98.6 98 18 97 06/21/20 22:30 Room Air I&O- Last 24 Hours up to 6 AM 06/22/20 06:00 Intake Total 2600 ml Output Total 3650 ml Balance -1050 ml Laboratory Data 24H LABS Laboratory Tests 2 06/21/20 20:58: Bedside Glucose (Misc Panel) 210H 06/22/20 06:17: Nucleated Red Blood Cells % (auto) 0.0, Anion Gap 6L, Glomerular Filtration Rate > 60.0, Calcium Level 8.9, Total Bilirubin 0.4, Aspartate Amino Transf (AST/SGOT) 101H, Alanine Aminotransferase (ALT/SGPT) 204H, Alkaline Phosphatase 218H, Total Protein 6.7, Albumin 3.4, Albumin/Globulin Ratio 1.0L, Lipase 101 06/22/20 11:50: Bedside Glucose (Misc Panel) 339H CBC/BMP Laboratory Tests 06/22/20 06:17 Current Medications Current Medications Medications (Trade) Dose Ordered Sig/Jonna Route PRN Reason Start Time Stop Time Status Last Admin Dose Admin Acetaminophen (Tylenol Tab) 650 mg Q4H PRN PO PAIN OR FEVER 06/19/20 14:40 06/20/20 13:31 DC 06/20/20 11:05 Albuterol Sulfate (Proventil, Ventolin Hfa) 2 puff Q4H PRN INH SHORTNESS OF BREATH 06/21/20 11:25 Albuterol/ Ipratropium (Duoneb (Ipr 0.5mg/Alb 2.5mg)) 3 ml Q4H PRN NEB SHORTNESS OF BREATH 06/21/20 11:25 Apixaban (Eliquis) 5 mg BID PO 06/19/20 21:00 06/20/20 13:31 DC 06/20/20 09:54 Apixaban (Eliquis) 5 mg BID PO 06/21/20 21:00 06/22/20 08:53 Artificial Tears (Akwa Tears) 1 drop BID PRN OU DRY EYES 06/21/20 11:25 Buspirone HCl (Buspar) 30 mg BID PO 06/19/20 21:00 06/20/20 13:31 DC 06/20/20 09:54 Buspirone HCl (Buspar) 30 mg BID PO 06/21/20 21:00 06/22/20 08:55 Cetirizine HCl (ZyrTEC) 10 mg DAILY PO 06/20/20 09:00 06/20/20 13:31 DC 06/20/20 09:52 Cetirizine HCl (ZyrTEC) 10 mg DAILY PO 06/22/20 09:00 06/22/20 08:54 Cyclobenzaprine HCl (Flexeril) 10 mg TID PRN PO MUSCLE SPASMS 06/21/20 11:25 Dextrose (Dextrose 50%) 25 ml ASDIRECTED PRN IV SEE LABEL COMMENTS 06/19/20 14:40 Dextrose/Sodium Chloride 1,000 ml @ 100 mls/hr Q10H IV 06/20/20 16:55 06/21/20 16:10 DC 06/21/20 08:09 Docusate Sodium (Colace) 100 mg DAILY PRN PO CONSTIPATION 06/21/20 11:25 Docusate Sodium (Colace) 100 mg DAILYPRN PRN PO constipation 06/19/20 14:40 06/20/20 13:32 DC Enoxaparin Sodium (Lovenox) 40 mg DAILY SC 06/21/20 09:00 06/21/20 11:26 DC 06/21/20 08:09 Ferrous Sulfate (Ferrous Sulfate) 325 mg DAILY PO 06/20/20 09:00 06/20/20 13:31 DC 06/20/20 09:54 Ferrous Sulfate (Ferrous Sulfate) 325 mg DAILY PO 06/22/20 09:00 06/22/20 08:54 Gabapentin (Neurontin) 600 mg TID PO 06/19/20 16:00 06/20/20 13:31 DC 06/20/20 09:52 Gabapentin (Neurontin) 600 mg TID PO 06/21/20 16:00 06/22/20 16:18 Glucagon (Glucagon) 1 mg ASDIRECTED PRN SC SEE LABEL COMMENTS 06/19/20 14:40 Glucose (Glucose) 16 GM ASDIRECTED PRN PO SEE LABEL COMMENTS 06/19/20 14:40 Heparin Sodium (Heparin (Flush)) 200 units ASDIRECTED PRN IV SEE LABEL COMMENTS 06/21/20 09:40 06/22/20 06:08 Heparin Sodium (Heparin (Flush)) 200 units PICC IV 06/21/20 18:00 06/22/20 06:08 Home Med (Med Rec Complete!) ASDIRECTED XX 06/19/20 15:20 06/19/20 15:21 DC Insulin Detemir (Levemir Insulin) 20 units BID SC 06/22/20 09:00 06/22/20 17:00 DC 06/22/20 08:59 Insulin Detemir (Levemir Insulin) 30 units BID SC 06/19/20 21:00 06/20/20 13:38 DC 06/20/20 09:55 Insulin Detemir (Levemir Insulin) 35 units BID SC 06/22/20 21:00 06/22/20 17:01 DC Insulin Detemir (Levemir Insulin) 40 units BID SC 06/22/20 21:00 Insulin Human Lispro (HumaLOG INSULIN) SEE PROTOCOL TABLE AC SC 06/21/20 17:30 06/22/20 17:05 Insulin Human Lispro (HumaLOG INSULIN) SEE PROTOCOL TABLE Q6H SC 06/19/20 14:40 06/19/20 15:40 DC Insulin Human Lispro (HumaLOG INSULIN) SEE PROTOCOL TABLE Q6H SC 06/19/20 18:00 06/21/20 16:14 DC 06/21/20 12:53 Insulin Human Lispro (HumaLOG INSULIN) SEE PROTOCOL TABLE QHS SC 06/21/20 21:00 Ketorolac Tromethamine (ToRADol) 15 mg Q6HP PRN IV MODERATE PAIN (PS 5-7) 06/19/20 14:40 06/21/20 11:26 DC 06/21/20 05:58 Levothyroxine Sodium (Synthroid) 25 mcg DAILY@06 PO 06/20/20 06:00 06/20/20 13:31 DC 06/20/20 05:45 Levothyroxine Sodium (Synthroid) 25 mcg DAILY@0600 PO 06/22/20 06:00 06/22/20 06:07 Lisinopril (Prinivil) 10 mg DAILY PO 06/20/20 09:00 06/20/20 13:32 DC 06/20/20 09:53 Lisinopril (Prinivil) 10 mg DAILY PO 06/21/20 09:00 06/22/20 09:08 Montelukast Sodium (Singulair) 10 mg DAILY PO 06/20/20 09:00 06/20/20 13:32 DC 06/20/20 09:52 Montelukast Sodium (Singulair) 10 mg DAILY PO 06/22/20 09:00 06/22/20 08:54 Morphine Sulfate (Morphine Sulfate Inj) 2 mg Q4H PRN IV MODERATE PAIN (PS 5-7) 06/19/20 20:40 06/21/20 21:26 Morphine Sulfate (Morphine Sulfate Inj) 4 mg Q4HP PRN IV SEVERE PAIN (PS 8-10) 06/20/20 11:35 06/21/20 11:26 DC 06/20/20 18:44 Ondansetron HCl (ZOFRAN INJection) 4 mg Q6HP PRN IV NAUSEA OR VOMITING 06/19/20 14:40 06/21/20 11:26 DC 06/21/20 05:56 Ondansetron HCl (Zofran Odt) 4 mg Q6HP PRN PO nausea/vomiting 06/21/20 11:25 06/21/20 15:55 Pantoprazole Sodium (Protonix) 40 mg BID IV 06/19/20 21:00 06/21/20 11:26 DC 06/21/20 08:09 Pantoprazole Sodium (Protonix) 40 mg DAILY PO 06/22/20 09:00 06/22/20 08:53 Potassium Chloride 10 meq/ IV Miscellaneous Supplies 100 ml @ 100 mls/hr Q1H IV 06/20/20 12:00 06/20/20 16:59 DC 06/20/20 16:56 Prazosin HCl (Minipress) 4 mg QHS PO 06/19/20 21:00 06/20/20 13:32 DC 06/19/20 21:22 Prazosin HCl (Minipress) 4 mg QHS PO 06/21/20 21:00 06/21/20 21:24 Sodium Chloride 1,000 ml @ 150 mls/hr Q6H40M IV 06/19/20 14:40 06/20/20 16:54 DC 06/20/20 09:52 Sodium Chloride (Saline Lock Flush) 10 ml ASDIRECTED PRN IV SEE LABEL COMMENTS 06/21/20 09:40 06/22/20 06:08 Sodium Chloride (Saline Lock Flush) 10 ml PICC IV 06/21/20 18:00 06/22/20 06:07 Sumatriptan Succinate (Imitrex) 50 mg BID PRN PO MIGRAINE 06/21/20 11:25 06/22/20 06:07 Sumatriptan Succinate (Imitrex) 50 mg BIDP PRN PO headache 06/19/20 14:40 06/20/20 13:32 DC Tamsulosin HCl (Flomax) 0.4 mg DAILY PO 06/20/20 09:00 06/20/20 13:32 DC 06/20/20 09:51 Tizanidine HCl (Zanaflex) 4 mg TID PO 06/19/20 16:00 06/20/20 13:32 DC 06/20/20 09:55 Tizanidine HCl (Zanaflex) 4 mg TID PO 06/21/20 16:00 06/22/20 16:18 Topiramate (TopAMAX) 50 mg BID PO 06/19/20 21:00 06/20/20 13:32 DC 06/20/20 09:54 Topiramate (TopAMAX) 50 mg BID PO 06/21/20 21:00 06/22/20 08:55 Venlafaxine HCl (Effexor Xr) 150 mg DAILY PO 06/20/20 09:00 06/20/20 13:32 DC 06/20/20 09:52 Venlafaxine HCl (Effexor Xr) 150 mg DAILY PO 06/22/20 09:00 06/22/20 08:54 Allergies Coded Allergies: meclizine (Verified Allergy, Severe, shock, 05/06/20) prednisone (Verified Allergy, Intermediate, hives, 05/06/20) 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
[2020-06-22 18:00] VITALS: BP 130/96
[2020-06-22] MEDS: PRAZOSIN 1 MG CAP PO SCH (21:44)
[2020-06-22 22:00] VITALS: BP 125/89
[2020-06-23] MEDS: SODIUM CHLORIDE 0.9% INJ 10 ML SYR IV SCH (05:26)
[2020-06-23] MEDS: LEVOTHYROXINE 25MCG TABLET (0.025MG) PO SCH (05:34)
[2020-06-23 05:46] LABS: HEMOGLOBIN 12.9 g/dl (12.0-15.5); MEAN CORPUSCULAR HEMOGLOBIN 32.8 pg (27.0-33.0); MEAN CORPUSCULAR HGB CONC 32.3 g/dl (32.0-36.5); MEAN CORPUSCULAR VOLUME 101.8 fl (80.0-96.0); PLATELET COUNT, AUTOMATED 201 10^3/uL (150-450); RED BLOOD COUNT 3.93 10^6/uL (4.00-5.40); WHITE BLOOD COUNT 6.6 10^3/uL (4.0-10.0)
[2020-06-23 06:00] VITALS: BP 109/78
[2020-06-23 06:20] LABS: ALBUMIN 3.3 GM/DL (3.2-5.2); ALT/SGPT 167 U/L (12-78); BILIRUBIN,TOTAL 0.3 MG/DL (0.2-1.0); BLOOD UREA NITROGEN 14 MG/DL (7-18); CALCIUM LEVEL 9.4 MG/DL (8.5-10.1); CARBON DIOXIDE LEVEL 27 MEQ/L (21-32); CHLORIDE LEVEL 108 MEQ/L (98-107); CREATININE FOR GFR 0.64 MG/DL (0.55-1.30); GLOMERULAR FILTRATION RATE > 60.0 (>58); GLUCOSE, FASTING 350 MG/DL (70-100); LIPASE 229 U/L (73-393); POTASSIUM SERUM 3.7 MEQ/L (3.5-5.1); SODIUM LEVEL 140 MEQ/L (136-145); TOTAL PROTEIN 6.8 GM/DL (6.4-8.2)
[2020-06-23] MEDS ORDERED: LEVEMIR (INSULIN DETEMIR) 1 UNITS/0.01ML SC SCH (09:00)
[2020-06-23] MEDS: HumaLOG INSULIN (NovoLOG) PER UNIT SC SCH (09:22)
[2020-06-23] MEDS: MONTELUKAST 10 MG TAB PO SCH (09:22)
[2020-06-23] MEDS: CETIRIZINE (ZyrTEC) 10 MG TAB PO SCH (09:22)
[2020-06-23] MEDS: tiZANidine 4 MG TAB PO SCH (09:23)
[2020-06-23] MEDS: PANTOPRAZOLE 40MG TAB (PROTONIX) PO SCH (09:23)
[2020-06-23] MEDS: TOPIRAMATE (TopAMAX) 25 MG TAB PO SCH (09:23)
[2020-06-23] MEDS: busPIRone 10 MG TAB PO SCH (09:23)
[2020-06-23] MEDS: FERROUS SULFATE 325MG TAB PO SCH (09:23)
[2020-06-23] MEDS: GABAPENTIN 300 MG CAP PO SCH (09:23)
[2020-06-23] MEDS: APIXABAN 5 MG TAB (ELIQUIS) PO SCH (09:23)
[2020-06-23] MEDS: VENLAFAXINE **XR** 75MG CAPSULE PO SCH (09:23)
[2020-06-23 09:25] VITALS: BP 144/100
--- NOTE | 2020-06-23 16:57 | DS.PDOC ---
Discharge Summary General Date of Admission Jun 19, 2020 at 14:40 Date of Discharge 06/23/20 Attending Physician: Lesvia Donovan MD Discharge Summary HISTORY OF PRESENT ILLNESS: 49-year-old W with a history of alpha-1 antitrypsin deficiency, unprovoked PE on eliquis, IDDM, prior history of multiple episodes of pancreatitis, s/p cholecystectomy, history of non obstructive renal calculi, who presents with worsening epigastric pain radiating to the back with nausea and mild diarrhea over the last 24h, with inability to take PO. She denied fevers, chills, chest pain, palpitations, constipation, hematemesis, hematochezia, recent weight loss, shortness of breath or cough. While in the ED, she was hemodynamically stable and afebrile but uncomfortable in significant distress fromthe abdominal pain. Workup revealed WBC 8.5, hgb 14.8, platelets 248, na 139, K 3.8, Cr 0.5, AST 110, ALT 201, alk phos 313, troponin negative, non ischemic EKG in NSR, and her lipase was 2020. She had a CT A/P that revealed that she had a prior cholecystectomy with no noted acute abdominal pathology. She is now being admitted for pancreatitis for supportive management and pain control. Of note, she has a history of chronic transaminitis 2/2 [id number] deficiency. HOSPITAL COURSE: Patient was kept NPO for several days, received high dose narcotics to control pain. Acute recurrent pancreatitis gradually improved, lipase decreased, WBC normalized. Diet was slowly advanced and pain regimen was deescalated slowly. TG 307, AST/ALT elevated but not worsened (chronic). States she has been referred to GI as o/p but has not yet seen. Her diabetes mellitus remained controlled, long acting insulins BID were later incorporated at lower dosing to help prevent hypoglycemia. Later she was increased significantly after advancing diet further. She had some elevated BP but this improved once reinstituting her home medications. By 06/23/20 she had much improved. She was discharged home to f/u with her PCP, GI specialist after discharge. PAST MEDICAL HISTORY: 1. Alpha-1 antitrypsin deficiency followed by Dr. Mccurdy. 2. Gastroesophageal reflux disease. 3. Fibromyalgia 4. Anxiety, depression, PTSD 6. Dyslipidemia 7. Hypothyroidism 8. Migraine headaches 10. Insomnia 11. Insulin-dependent diabetes mellitus 12. Obstructive sleep apnea 13. COPD. PAST SURGICAL HISTORY: 1. Cholecystectomy. 2. Appendectomy. 3. 3 4. Orthodontic surgery 5. Port placement and removal for 1 antitrypsin deficiency infusions. SOCIAL HISTORY: Former smoker of 20 pack years. Rare consumption of alcohol No illicit drug use FAMILY HISTORY: Cancer - mother Hypertension and diabetes - mother and father DISCHARGE MEDICATIONS: Please see below PHYSICAL EXAMINATION: VITAL SIGNS: Please see below GENERAL: appears uncomfortable, AAOx3 HEENT: NC/AT, PERRLA, EOMI CARDIOVASCULAR: RRR, S1 S2, no mrg RESPIRATORY: Clear to auscultation bilaterally without wheezing, rhonchi or crackles ABDOMINAL: Normoactive bowel sounds, soft,improving epigastric pain/ RUQ pain in abdomen , no hepatomegaly, no rebound tenderness, no shifting dullness EXTREMITIES: No clubbing cyanosis or edema, WWP, 2+ DP pulses NEUROLOGICAL: Spontaneously moves all 4 extremities, cranial nerves 2-12 grossly intact no gross focal deficits PSYCHOLOGICAL: AOx3, normal affect LABORATORY DATA: Please see below IMAGING: CT abd/pelvis: No acute abnormalities identified. ASSESSMENT: 49-year-old W with a history of alpha-1 antitrypsin deficiency, unprovoked PE on eliquis, IDDM, prior history of pancreatitis, history of non obstructive renal calculi who is admitted for acute pancreatitis. PROBLEMS: Acute recurrent pancreatitis -s/p cholecystectomy, hx of chronic transaminitis related to alpha-1 antitrypsin deficiency, unlikely 2/2 retained stones. -Improved abd pain , nausea, WBC wnl -Tolerating advanced diet further, no abdominal pain -TG 307, AST/ALT elevated but not worsened (chronic) -States she has been referred to GI as o/p but has not yet seen. -Recommend diet for pancreatitis prevention and f/u with PCP closely Diabetes mellitus -BS increasing further due to advancing diet -C/w home medications, f/u with PCP Hypertension -C/w home meds Hypokalemia, acute likely 2/2 to decreased Po intake-resolved Hypothyroidism: -C/w PO levothyroxine GERD: -C/w protonix 40 daily Chronic pain -C/w pain regimen Seasonal allergies -PO cetirizine Chronic constipation -PO Colace PRN Migraine headaches: -PO PRN sumatriptan and daily Topamax PTSD/mood disorder -PO venlafaxine and buspar Chronic transaminitis: in the setting of alpha 1 antitrypsin deficiency -daily CMP not worsened -previously noted steatosis on CT A/P History of unprovoked PE -PO eliquis COPD/asthma: no evidence of acute exacerbation -PO home montelukast, albuterol PRN Chronic pain: -PO tizanidine, gabapentin DVT ppx -Eliquis BID DISPOSITION: D/c home with f/u with PCP, to go to new appointment with GI pro vider in next several weeks. DISCHARGE CONDITION: [Stable]. TIME SPENT ON DISCHARGE: 35 minutes. Vital Signs/I&Os Vital Signs Date Time Temp Pulse Resp B/P (MAP) Pulse Ox O2 Delivery O2 Flow Rate FiO2 06/23/20 09:25 144/100 06/23/20 06:00 98.1 101 20 95 Room Air I&O- Last 24 Hours up to 6 AM 06/23/20 05:59 Intake Total 2520 ml Output Total 2850 ml Balance -330 ml Laboratory Data Labs 24H Laboratory Tests 2 06/22/20 17:00: Bedside Glucose (Misc Panel) 275H 06/22/20 20:33: Bedside Glucose (Misc Panel) 349H 06/23/20 05:30: Nucleated Red Blood Cells % (auto) 0.0, Anion Gap 5L, Glomerular Filtration Rate > 60.0, Calcium Level 9.4, Total Bilirubin 0.3, Aspartate Amino Transf (AST/SGOT) 62H, Alanine Aminotransferase (ALT/SGPT) 167H, Alkaline Phosphatase 230H, Total Protein 6.8, Albumin 3.3, Albumin/Globulin Ratio 0.9L, Lipase 229 CBC/BMP Laboratory Tests 06/23/20 05:30 FSBS Laboratory Tests Test 06/22/20 17:00 06/22/20 20:33 Range/Units Bedside Glucose (Misc Panel) 275 349 70-105 MG/DL Discharge Medications Scheduled Apixaban (Eliquis) 5 Mg Tablet, 5 MG PO BID, (Reported) Buspirone HCl (Buspirone HCl) 30 Mg Tablet, 30 MG PO BID, (Reported) Cetirizine HCl (Cetirizine HCl) 10 Mg Tab, 10 MG PO DAILY, (Reported) Cholecalciferol (Vitamin D3) (Vitamin D3) 25 Mcg Capsule, 25 MCG PO DAILY, (Reported) Ertugliflozin Pidolate (Steglatro) 5 Mg Tablet, 5 MG PO DAILY, (Reported) HAS BEEN OUT FOR ABOUT 1 WEEK Ferrous Sulfate (Ferrous Sulfate) 325 Mg Tablet, 325 MG PO DAILY, (Reported) Gabapentin (Gabapentin) 600 Mg Tablet, 600 MG PO TID, (Reported) Insulin Glargine,Hum.rec.anlog (Basaglar Kwikpen U-100) 100 Unit/1 Ml Insuln.pen, 80 UNITS SC BID, (Reported) Insulin Human Regular (Humulin R) 1 Units/0.01 Ml Soln, 1 DOSE SC ACHS, (Reported) PER SLIDING SCALE Levothyroxine Sodium (Synthroid) 25 Mcg Tab, 25 MCG PO DAILY, (Reported) Lisinopril (Lisinopril) 10 Mg Tab, 10 MG PO DAILY, (Reported) Montelukast Sodium (Montelukast Sodium) 10 Mg Tablet, 10 MG PO DAILY, (Reported) Pantoprazole Sodium (Protonix) 40 Mg Tab, 40 MG PO DAILY, (Reported) Prazosin HCl (Prazosin HCl) 2 Mg Capsule, 4 MG PO QHS, (Reported) Tizanidine HCl (Tizanidine HCl) 4 Mg Tab, 4 MG PO TID, (Reported) Topiramate (Topiramate) 50 Mg Tab, 50 MG PO BID, (Reported) Venlafaxine HCl (Venlafaxine HCl ER) 150 Mg Tab.er.24, 150 MG PO DAILY, (Reported) Scheduled PRN Albuterol Sulfate (Ventolin Hfa) 108 Mcg/Act Aer, 2 PUFFS INH Q4H PRN for SHORTNESS OF BREATH, (Reported) Cyclobenzaprine HCl (Cyclobenzaprine HCl) 10 Mg Tablet, 10 MG PO TID PRN for MUSCLE SPASMS, (Reported) Docusate Sodium (Colace) 100 Mg Cap, 100 MG PO DAILY PRN for CONSTIPATION, (Reported) Hydrocodone/Acetaminophen (Hydrocodone-Acetamin 5-325 mg) 1 Each Tablet, 1 TAB PO Q6H PRN for PAIN, (Reported) Ipratropium/Albuterol Sulfate (Iprat-Albut 0.5-3(2.5) mg/3 ml) 3 Ml Ampul.neb, 1 VIAL NEB Q4H PRN for SHORTNESS OF BREATH, (Reported) Ondansetron (Ondansetron Odt) 4 Mg Tab.rapdis, 4 MG PO Q6-8H PRN for nausea/vomiting, (Reported) Polyvinyl Alcohol (Artificial Tears) 1.4 % Debora, 1 DROP OU BID PRN for DRY EYES, (Reported) Sumatriptan Succinate (Sumatriptan Succinate) 50 Mg Tab, 50 MG PO BID PRN for [place] GRAINE, (Reported) Triamcinolone Acetonide (Triamcinolone Acetonide) 0.1 % Lot, 1 DOSE EXT BID PRN for RASH, (Reported) USES ON ELBOWS AND FINGERS Allergies Coded Allergies: meclizine (Verified Allergy, Severe, shock, 05/06/20) prednisone (Verified Allergy, Intermediate, hives, 05/06/20) 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
== END 2020-06-23 10:22 | disposition home or self-care (01) | DRG 282 ==
LOC: M ED 10:59 → EEVIPCON 14:40 → M ED INP 14:40 → ENRESERV 15:09 → M MSPAV 16:42
PROVIDERS: ADMIT Internal Medicine; ATTEND Internal Medicine
PROC: 02HV33Z Insertion of Infusion Device into Superior Vena Cava, Percutaneous Approach (ICD-10-PCS; principal; 2020-06-21 12:00)
DX: K85.90 Acute pancreatitis without necrosis or infection, unspecified (principal); E88.01 Alpha-1-antitrypsin deficiency; E11.65 Type 2 diabetes mellitus with hyperglycemia; R74.01 Elevation of levels of liver transaminase levels; K21.9 Gastro-esophageal reflux disease without esophagitis; E87.6 Hypokalemia; M79.7 Fibromyalgia; F32.9 Major depressive disorder, single episode, unspecified; F41.9 Anxiety disorder, unspecified; F43.10 Post-traumatic stress disorder, unspecified; E78.5 Hyperlipidemia, unspecified; E03.9 Hypothyroidism, unspecified; G43.909 Migraine, unspecified, not intractable, without status migrainosus; G47.00 Insomnia, unspecified; G47.33 Obstructive sleep apnea (adult) (pediatric); I10 Essential (primary) hypertension; G89.29 Other chronic pain; J44.9 Chronic obstructive pulmonary disease, unspecified; Z86.711 Personal history of pulmonary embolism; Z90.49 Acquired absence of other specified parts of digestive tract; Z87.442 Personal history of urinary calculi; Z87.891 Personal history of nicotine dependence; K59.09 Other constipation; Z79.4 Long term (current) use of insulin; Z79.01 Long term (current) use of anticoagulants; Z79.899 Other long term (current) drug therapy; Z88.6 Allergy status to analgesic agent; Z88.8 Allergy status to other drugs, medicaments and biological substances; Z20.822 Contact with and (suspected) exposure to COVID-19

== ENCOUNTER 2020-07-07 14:25 | Inpatient (IN) | payer OTHER ==
[~2020-07-07] VITALS: Ht 160 cm; Wt 92.3 kg
[~2020-07-07 14:25] MED LIST changes: +PRAZ2CAP40 PO
[2020-07-07] MEDS ORDERED: METOCLOPRAMIDE INJ 10MG/2ML VIAL (J2765 PER 1) IV ONE (16:10)
[2020-07-07] MEDS ORDERED: MORPHINE 4 MG/ML 1ML VIAL/SYRINGE (J2270) IV ONE ×3 (16:10→22:40)
[2020-07-07] MEDS ORDERED: NS 1,000 ML IV ONE (16:10)
[2020-07-07 17:28] LABS: BASO # 0.1 10^3/uL (0.0-0.2); BASO % 0.8 % (0.0-1.0); EOS # 0.3 10^3/uL (0.0-0.5); EOS % 3.4 % (0.0-3.0); HEMATOCRIT 41.4 % (36.0-47.0); HEMOGLOBIN 13.6 g/dl (12.0-15.5); LYMPH # 3.3 10^3/uL (1.5-5.0); LYMPH % 36.1 % (24.0-44.0); MEAN CORPUSCULAR HEMOGLOBIN 32.9 pg (27.0-33.0); MEAN CORPUSCULAR HGB CONC 32.9 g/dl (32.0-36.5); MONO # 0.6 10^3/uL (0.0-0.8); NEUTROPHILS # 4.7 10^3/uL (1.5-8.5); NEUTROPHILS % 52.3 % (36.0-66.0); PLATELET COUNT, AUTOMATED 242 10^3/uL (150-450); RED BLOOD COUNT 4.14 10^6/uL (4.00-5.40); WHITE BLOOD COUNT 9.1 10^3/uL (4.0-10.0)
[2020-07-07 17:56] LABS: ALBUMIN 3.8 GM/DL (3.2-5.2); ALT/SGPT 225 U/L (12-78); BILIRUBIN,DIRECT < 0.1 MG/DL (0.0-0.2); BILIRUBIN,TOTAL 0.3 MG/DL (0.2-1.0); CK-MB VALUE MASS < 1.0 NG/ML (<3.6); CPK CREATINE PHOSPHOKINASE 69 U/L (26-192); LIPASE 1430 U/L (73-393); MB/CK RELATIVE INDEX 1.45 (< OR =4); TOTAL PROTEIN 7.6 GM/DL (6.4-8.2); TROPONIN I < 0.02 NG/ML (< 0.10)
[2020-07-07 18:38] LABS: VENOUS BASE EXCESS -4.5 (-2.0-2.0); VENOUS HCO3 21.4 MEQ/L (23.0-27.0); VENOUS O2 SATURATION 90.4 % (60.0-80.0); VENOUS PARTIAL PRESSURE CO2 42.4 mmHg (38.0-50.0); VENOUS PARTIAL PRESSURE O2 60.2 mmHg (30.0-50.0); VENOUS STANDARD HCO3 20.6 MEQ/L; VENOUS TOTAL CO2 22.7 MEQ/L (24.0-28.0)
[2020-07-07] MEDS ORDERED: HumuLIN R (REGULAR) INSULIN (NovoLIN R) **100U/ML** PER UNIT IV ONE (19:10)
[2020-07-07] MEDS ORDERED: DEXTROSE 50% 50 ML SYRINGE IV PRN (19:40)
[2020-07-07] MEDS ORDERED: ONDANSETRON 4MG/2ML VIAL IV PRN (19:40)
[2020-07-07] MEDS ORDERED: LR 1,000 ML IV SCH (19:40)
[2020-07-07] MEDS ORDERED: GLUCOSE 4GM CHEW TABLET PO PRN (19:40)
[2020-07-07] MEDS ORDERED: MOM 30ML SUSPENSION UDC PO PRN (19:40)
[2020-07-07] MEDS ORDERED: MAALOX 30 ML SUSP *UDC PO PRN (19:40)
[2020-07-07] MEDS ORDERED: KETOROLAC 30 MG/ML 1ML VIAL IV PRN (19:40)
[2020-07-07] MEDS ORDERED: GLUCAGON INJ 1MG VIAL SC PRN (19:40)
[2020-07-07] MEDS ORDERED: ONDANSETRON 4MG/2ML VIAL IV ONE (19:50)
--- NOTE | 2020-07-07 19:56 | HPEPDOC ---
[facility] Medical History & Physical Date of Admission Jul 07, 2020 Date of Service: Jul 07, 2020 Primary Care Physician: ADALBERTO ANGELES DO Attending Physician: EDWARD RADFORD MD History and Physical TIME OF SERVICE 835 CHIEF COMPLAINT: abdominal pain HISTORY OF PRESENT ILLNESS: This 49 yr old F presented w c/o 7/10 in severity RUQ pain for 3 days that is similar to the pain she had in the past that was attributed to acute pancreatitis; the pain is associated with n/v, loose stools and poor appetite (she has only eaten an [place] muffin today). The cause of her pancreatitis is unclear; she has had a cholecystectomy and her TG was 307 in May. noted that it is unusual for someone to have A1AT,AMA and recurrent pancreatitis and referred her to [facility] but her apt is on September 13. ROS: 12 point ROS neg except as listed in HPI PAST MEDICAL/SURGICAL HISTORY: Recurrent pancreatitis AMA COPD / Alpha-1 antitrypsin deficiency IDDM Essential HTN PE (unprovoked on eliquis) Hypothyroidism Anxiety, depression, PTSD, Insomnia Dyslipidemia Migraines WANDY GERD Fibromyalgia Nephrolithiasis Cholecystectomy Appendectomy 3 Orthodontic surgery Port placement w subsequent removal SOCIAL HISTORY: Former smoker of 20 pack years / Rare consumption of alcohol / No recreational drug use FAMILY HISTORY: Cancer - mother / Hypertension and diabetes - mother and father ALLERGIES: Please see below. HOME MEDICATIONS: Please see below. PHYSICAL EXAMINATION: Vital Signs Date Time Temp Pulse Resp B/P (MAP) Pulse Ox O2 Delivery O2 Flow Rate FiO2 07/07/20 14:27 97.3 101 20 163/98 (119) 98 Room Air GENERAL APPEARANCE: well nourished and developed / NAD HEENT: no scleral icterus CARDIOVASCULAR: RRR/NMRG LUNGS: CTAB on RA ABDOMEN: + small bruise / soft & NT MUSCULOSKELETAL: NCAT / ROSARIO x 4 NEUROLOGICAL: CN 2-12 grossly intact / speech not dysarthric PSYCHIATRIC: A&Ox 3 / able to understand and follow all commands LABORATORY DATA: Urine Color YELLOW, Urine Appearance CLOUDYH, Urine pH 7.0, Urine Specific [place] 1.025, Urine Protein NEGATIVE, Urine Glucose (UA) 3+H, Urine Ketones NEGATIVE, Urine Blood NEGATIVE, Urine Nitrite NEGATIVE, Urine Bilirubin NEGATIVE, Urine Urobilinogen 4.0H, Urine Leukocyte Esterase TRACEH, Urine WBC (Auto) 3, Urine RBC (Auto) 3, Urine Hyaline Casts (Auto) 0, Urine Bacteria (Auto) NEGATIVE, Urine Squamous Epithelial Cells 3, Urine Amorphous Sediment SMALLH, Urine Mucus (Auto) SMALL, Urine Sperm (Auto) , Total Bilirubin 0.3, Direct Bilirubin < 0.1, Aspartate Amino Transf (AST/SGOT) 137H, Alanine Aminotransferase (ALT/SGPT) 225H, Alkaline Phosphatase 246H, Total Creatine Kinase 69, Creatine Kinase MB < 1.0, Creatine Kinase MB Relative Index 1.45, Troponin I < 0.02, Total Protein 7.6, Albumin 3.8, Albumin/Globulin Ratio 1.0L, Lipase 1430H POC Beta HCG, Quantitative < 5.0 B-Hydroxybutyrate 1.46 IMAGING: Liver US APR 21 2020 "IMPRESSION: 1. Status post cholecystectomy. 2. Otherwise negative right upper quadrant sonogram. The CBD measures [address] abd/pelvis June 20 2019 "IMPRESSION: No acute abnormalities identified." MICROBIOLOGY: Please see below. ASSESSMENT: is a 49 yr old w recurrent pancreatitis, COPD/A1AT deficiency, AMA, PE, IDDM, hypothyroidism, DLP, migraines & anxiety/depression, who presented w abdominal pain and will be admitted for recurrent acute pancreatitis. PLAN: 1. 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 Mccurdy 3 IDDM Plan: f/u accuchecks / hypoglycemia protocol / sliding scale insulin / hold oral anti-glycemics / reduce long acting insulin form 80 units BID down to 20 units BID until her oral intake improves / f/u A1C (target A1C is <7 to 6.5% )/ PCP may consider out pt Endo referral to switch the patient from basal bolus injection to continuous subcutaneous insulin infusion which has been shown to p roduced small improvements in A1C, improve QOL and reduce episodes of severe hypoglycemia / Gabapentin for neuropathy ? 4 AMA Plan:GI at [facility] 5 PE Plan: Apixaban 6 Hypothyroidism Plan: Levothyroxine 7 Migraines Plan: Sumatriptan, Topiramate , Venlafaxine 8 Essential HTN Plan: d/c Lisinopril which can cause pancreatitis and switch to Losartan 9 Anxiety, depression, PTSD, Insomnia Plan:Buspirone, Prazosin for PTSD ? 10 WANDY Plan: own CPAP 11 GERD Plan: Pantoprazole 12 Fibromyalgia Plan: Cyclobenzaprine, Tizanidine / Docusate with Hydrocodone/Acetaminophen? 13 Obesity She has co-existing DM and WANDY which complicates her care Plan: fthe patient can f/u w her PCP to discuss diet, exercise, staring Saxenda or Victoza, which are indicated in patients with a BMI >27 with co-existing DM, HTN or dyslipidemia to help with weight control as an adjunct to exercise & referral to a Bariatric Surgeon DVT Px n/a on DOAC Dispo: home after more than 2 midnight's stay Home Medications Scheduled Apixaban (Eliquis) 5 Mg Tablet, 5 MG PO BID Buspirone HCl (Buspirone HCl) 30 Mg Tablet, 30 MG PO BID Cetirizine HCl (Cetirizine HCl) 10 Mg Tab, 10 MG PO DAILY Cholecalciferol (Vitamin D3) (Vitamin D3) 25 Mcg Capsule, 25 MCG PO DAILY Ertugliflozin Pidolate (Steglatro) 5 Mg Tablet, 5 MG PO DAILY HAS BEEN OUT FOR ABOUT 1 WEEK Ferrous Sulfate (Ferrous Sulfate) 325 Mg Tablet, 325 MG PO DAILY Gabapentin (Gabapentin) 600 Mg Tablet, 600 MG PO TID Insulin Glargine,Hum.rec.anlog (Basaglar Kwikpen U-100) 100 Unit/1 Ml Insuln.pen, 80 UNITS SC BID Insulin Human Regular (Humulin R) 1 Units/0.01 Ml Soln, 1 DOSE SC ACHS PER SLIDING SCALE Levothyroxine Sodium (Synthroid) 25 Mcg Tab, 25 MCG PO DAILY Lisinopril (Lisinopril) 10 Mg Tab, 10 MG PO DAILY Montelukast Sodium (Montelukast Sodium) 10 Mg Tablet, 10 MG PO DAILY Pantoprazole Sodium (Protonix) 40 Mg Tab, 40 MG PO DAILY Prazosin HCl (Prazosin HCl) 2 Mg Capsule, 4 MG PO QHS Tizanidine HCl (Tizanidine HCl) 4 Mg Tab, 4 MG PO TID Topiramate (Topiramate) 50 Mg Tab, 50 MG PO BID Venlafaxine HCl (Venlafaxine HCl ER) 150 Mg Tab.er.24, 150 MG PO DAILY Scheduled PRN Albuterol Sulfate (Ventolin Hfa) 108 Mcg/Act Aer, 2 PUFFS INH Q4H PRN for SHORTNESS OF BREATH Cyclobenzaprine HCl (Cyclobenzaprine HCl) 10 Mg Tablet, 10 MG PO TID PRN for MUSCLE SPASMS Docusate Sodium (Colace) 100 Mg Cap, 100 MG PO DAILY PRN for CONSTIPATION Hydrocodone/Acetaminophen (Hydrocodone-Acetamin 5-325 mg) 1 Each Tablet, 1 TAB PO Q6H PRN for PAIN Ipratropium/Albuterol Sulfate (Iprat-Albut 0.5-3(2.5) mg/3 ml) 3 Ml Ampul.neb, 1 VIAL NEB Q4H PRN for SHORTNESS OF BREATH Polyvinyl Alcohol (Artificial Tears) 1.4 % Debora, 1 DROP OU BID PRN for DRY EYES Sumatriptan Succinate (Sumatriptan Succinate) 50 Mg Tab, 50 MG PO BID PRN for MIGRAINE Triamcinolone Acetonide (Triamcinolone Acetonide) 0.1 % Lot, 1 DOSE EXT BID PRN for RASH USES ON ELBOWS AND FINGERS Allergies Coded Allergies: meclizine (Verified Allergy, Severe, shock, 05/06/20) prednisone (Verified Allergy, Intermediate, hives, 05/06/20) PT STATES ONLY REACTION TO A PRODUCT SAFETY TECHNICAL ASSISTANT THE TABLETS; LIQUID FORMULATIONS ARE FINE metformin (Verified Adverse Reaction, Intermediate, kidney problems, 05/06/20) A-FIB/CHADSVASC A-FIB History Current/History of A-Fib/PAF?: No Current PO Anticoag Therapy: No EDWARD RADFORD MD Jul 07, 2020 19:56
[2020-07-07 20:40] LABS: ETHYL ALCOHOL (ETHANOL) < 0.003 % (0.000-0.010)
[2020-07-07 20:54] LABS: RSV AMPLIFICATION NEGATIVE (NEGATIVE)
--- NOTE | 2020-07-07 22:03 | DS.PDOC ---
Discharge Summary General Date of Admission Jul 07, 2020 at 19:40 Date of Discharge July 08 2020 @ 1215am Primary Care Physician: ADALBERTO ANGELES DO Attending Physician: EDWARD RADFORD MD Discharge Summary PROCEDURES PERFORMED DURING STAY: [None]. ADMITTING DIAGNOSES: 1. Recurrent pancreatitis DISCHARGE DIAGNOSES: 1. Recurrent pancreatitis cause TBD COMPLICATIONS/CHIEF COMPLAINT: Pancreatitis. HISTORY OF PRESENT ILLNESS: Per HPI "This 49 yr old F w a hx of Recurrent pancreatitis, AMA, COPD / Alpha-1 antitrypsin deficiency IDDM HTN PE Hypothyroidism Anxiety, depression, PTSD, Insomnia Dyslipidemia Migraines WANDY GERD & Fibromyalgia presented w c/o 09/23 in severity RUQ pain for 3 days that is similar to the pain she had in the past that was attributed to acute pancreatitis; the pain is associated with n/v, loose stools and poor appetite (she has only eaten an [place] muffin today). The cause of her pancreatitis is unclear; she has had a cholecystectomy and her TG was 307 in May. noted that it is unusual for someone to have A1AT, AMA and recurrent pancreatitis and referred her to [facility] but her apt is on September 13." HOSPITAL COURSE: She was started on IVF & pain meds prior to transfer to [facility] DISCHARGE MEDICATIONS: Please see below. ALLERGIES: Please see below. PHYSICAL EXAMINATION ON DISCHARGE: VITAL SIGNS: Please see below. GENERAL: appears to be in pain INTEGUMENT: slightly flushed LABORATORY DATA: Laboratory Tests 07/07/20 16:52 07/07/20 16:52: Immature Granulocyte % (Auto) 0.4, Neutrophils (%) (Auto) 52.3, Lymphocytes (%) (Auto) 36.1, Monocytes (%) (Auto) 7.0, Eosinophils (%) (Auto) 3.4H, Basophils (%) (Auto) 0.8, Neutrophils # (Auto) 4.7, Lymphocytes # (Auto) 3.3, Monocytes # (Auto) 0.6, Eosinophils # (Auto) 0.3, Basophils # (Auto) 0.1, Nucleated Red Blood Cells % (auto) 0.0, Urine Color YELLOW, Urine Appearance CLOUDYH, Urine pH 7.0, Urine Specific [place] 1.025, Urine Protein NEGATIVE, Urine Glucose (UA) 3+H, Urine Ketones NEGATIVE, Urine Blood NEGATIVE, Urine Nitrite NEGATIVE, Urine Bilirubin NEGATIVE, Urine Urobilinogen 4.0H, Urine Leukocyte Esterase TRACEH, Urine WBC (Auto) 3, Urine RBC (Auto) 3, Urine Hyaline Casts (Auto) 0, Urine Bacteria (Auto) NEGATIVE, Urine Squamous Epithelial Cells 3, Urine Amorphous Sediment SMALLH, Urine Mucus (Auto) SMALL, Urine Sperm (Auto) , Total Bilirubin 0.3, Direct Bilirubin < 0.1, Aspartate Amino Transf (AST/SGOT) 137H, Alanine A minotransferase (ALT/SGPT) 225H, Alkaline Phosphatase 246H, Total Creatine Kinase 69, Creatine Kinase MB < 1.0, Creatine Kinase MB Relative Index 1.45, Troponin I < 0.02, Total Protein 7.6, Albumin 3.8, Albumin/Globulin Ratio 1.0L, Lipase 1430H, Ethyl Alcohol Level < 0.003 07/07/20 17:12: POC Glucose (Misc Panel) 425H, POC Sodium (Misc Panel) 136, POC Potassium (Misc Panel) 4.0, POC Chloride (Misc Panel) 99, POC Total CO2 (Misc Panel) 27.0, POC Blood Urea Nitrogen (Misc Panel 17, POC Ionized Calcium (Misc Panel) 5.3, POC Creatinine (Misc Panel) 0.5L, POC Hematocrit (Misc Panel) 44.0 07/07/20 17:21: POC Beta HCG, Quantitative < 5.0 07/07/20 18:26: Blood Gas Bicarbonate Standard 20.6, Venous Blood pH 7.320L, Venous Blood Partial Pressure CO2 42.4, Venous Blood Partial Pressure O2 60.2H, Venous Blood Total Carbon Dioxide 22.7L, Venous Blood HCO3 21.4L, Venous Blood Oxygen Saturation 90.4H, Venous Blood Base Excess -4.5L, B-Hydroxybutyrate 1.46 07/07/20 20:09: Coronavirus (COVID-19)(PCR) NEGATIVE, Influenza Type A (RT-PCR) NEGATIVE, Influenza Type B (RT-PCR) NEGATIVE, Respiratory Syncytial Virus (PCR) NEGATIVE IMAGING: no new imaging PROGNOSIS: fair ACTIVITY: [As tolerated]. DIET: NPO DISCHARGE PLAN: Transfer to [facility] under the care of DISPOSITION: Transfer to [facility] for GI / multidisciplinary team eval DISCHARGE CONDITION: [Stable]. TIME SPENT ON DISCHARGE: Approximately 30 min Discharge Medications Scheduled Apixaban (Eliquis) 5 Mg Tablet, 5 MG PO BID, (Reported) Buspirone HCl (Buspirone HCl) 30 Mg Tablet, 30 MG PO BID, (Reported) Cetirizine HCl (Cetirizine HCl) 10 Mg Tab, 10 MG PO DAILY, (Reported) Cholecalciferol (Vitamin D3) (Vitamin D3) 25 Mcg Capsule, 25 MCG PO DAILY, (Reported) Ertugliflozin Pidolate (Steglatro) 5 Mg Tablet, 5 MG PO DAILY, (Reported) HAS BEEN OUT FOR ABOUT 1 WEEK Ferrous Sulfate (Ferrous Sulfate) 325 Mg Tablet, 325 MG PO DAILY, (Reported) Gabapentin (Gabapentin) 600 Mg Tablet, 600 MG PO TID, (Reported) Insulin Glargine,Hum.rec.anlog (Basaglar Kwikpen U-100) 100 Unit/1 Ml Insuln.pen, 80 UNITS SC BID, (Reported) Insulin Human Regular (Humulin R) 1 Units/0.01 Ml Soln, 1 DOSE SC ACHS, (Reported) PER SLIDING SCALE Levothyroxine Sodium (Synthroid) 25 Mcg Tab, 25 MCG PO DAILY, (Reported) Lisinopril (Lisinopril) 10 Mg Tab, 10 MG PO DAILY, (Reported) Montelukast Sodium (Montelukast Sodium) 10 Mg Tablet, 10 MG PO DAILY, (Reported) Pantoprazole Sodium (Protonix) 40 Mg Tab, 40 MG PO DAILY, (Reported) Prazosin HCl (Prazosin HCl) 2 Mg Capsule, 4 MG PO QHS, (Reported) Tizanidine HCl (Tizanidine HCl) 4 Mg Tab, 4 MG PO TID, (Reported) Topiramate (Topiramate) 50 Mg Tab, 50 MG PO BID, (Reported) Venlafaxine HCl (Venlafaxine HCl ER) 150 Mg Tab.er.24, 150 MG PO DAILY, (Reported) Scheduled PRN Albuterol Sulfate (Ventolin Hfa) 108 Mcg/Act Aer, 2 PUFFS INH Q4H PRN for SHORTNESS OF BREATH, (Reported) Cyclobenzaprine HCl (Cyclobenzaprine HCl) 10 Mg Tablet, 10 MG PO TID PRN for MUSCLE SPASMS, (Reported) Docusate Sodium (Colace) 100 Mg Cap, 100 MG PO DAILY PRN for CONSTIPATION, (Reported) Hydrocodone/Acetaminophen (Hydrocodone-Acetamin 5-325 mg) 1 Each Tablet, 1 TAB PO Q6H PRN for PAIN, (Reported) Ipratropium/Albuterol Sulfate (Iprat-Albut 0.5-3(2.5) mg/3 ml) 3 Ml Ampul.neb, 1 VIAL NEB Q4H PRN for SHORTNESS OF BREATH, (Reported) Polyvinyl Alcohol (Artificial Tears) 1.4 % Debora, 1 DROP OU BID PRN for DRY EYES, (Reported) Sumatriptan Succinate (Sumatriptan Succinate) 50 Mg Tab, 50 MG PO BID PRN for MIGRAINE, (Reported) Triamcinolone Acetonide (Triamcinolone Acetonide) 0.1 % Lot, 1 DOSE EXT BID PRN for RASH, (Reported) USES ON ELBOWS AND FINGERS Allergies Coded Allergies: meclizine (Verified Allergy, Severe, shock, 05/06/20) prednisone (Verified Allergy, Intermediate, hives, 05/06/20) PT STATES ONLY REACTION TO A CHIEF CLINICAL OFFICER THE TABLETS; LIQUID FORMULATIONS ARE FINE metformin (Verified Adverse Reaction, Intermediate, kidney problems, 05/06/20) EDWARD RADFORD MD Jul 07, 2020 22:03
[2020-07-07] MEDS ORDERED: NORCO, ANEXSIA 5/325MG TABLET (HYDROcodone/ACETAMINOPHEN) PO PRN (22:15)
[2020-07-07] MEDS ORDERED: IPRATROPIUM 0.5MG/ALBUTEROL 2.5MG INH SOL UD 3ML (DUONEB) NEB PRN (22:15)
[2020-07-07] MEDS ORDERED: LEVEMIR (INSULIN DETEMIR) 1 UNITS/0.01ML SC SCH (22:15)
[2020-07-07] MEDS ORDERED: tiZANidine 4 MG TAB PO SCH (22:15)
[2020-07-07] MEDS ORDERED: TOPIRAMATE (TopAMAX) 25 MG TAB PO SCH (22:15)
[2020-07-07] MEDS ORDERED: GABAPENTIN 300 MG CAP PO SCH (22:15)
[2020-07-07] MEDS ORDERED: DOCUSATE SODIUM 100MG CAPSULE PO PRN (22:15)
[2020-07-07] MEDS ORDERED: busPIRone 10 MG TAB PO SCH (22:15)
[2020-07-07] MEDS ORDERED: PRAZOSIN 1 MG CAP PO SCH (22:15)
[2020-07-07] MEDS ORDERED: POLYVINYL ALCOHOL OPHTH SOLN 15 ML(LIQUITEARS) OU PRN (22:15)
[2020-07-07] MEDS ORDERED: APIXABAN 5 MG TAB (ELIQUIS) PO SCH (22:15)
[2020-07-07] MEDS ORDERED: ALBUTEROL 90 MCG/ACT 8GM HFA INHALER INH PRN (22:15)
[2020-07-07] MEDS ORDERED: CYCLOBENZAPRINE 10MG TABLET PO PRN (22:15)
[2020-07-07] MEDS ORDERED: SUMAtriptan SUCCINATE 25 MG TAB PO PRN (22:15)
[2020-07-07] MEDS ORDERED: TRIAMCINOLONE ACET 0.1% OINTMENT 15 GM TOP PRN (22:15)
[2020-07-07] MEDS: HumaLOG INSULIN (NovoLOG) PER UNIT SC SCH (23:44)
[2020-07-08] MEDS: HumaLOG INSULIN (NovoLOG) PER UNIT SC SCH
[2020-07-08 00:05] VITALS: BP 167/94
[2020-07-08] MEDS ORDERED: LEVOTHYROXINE 25MCG TABLET (0.025MG) PO SCH (06:00)
--- NOTE | 2020-07-08 06:27 | ECGEPIP ---
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
[2020-07-08] MEDS ORDERED: MONTELUKAST 10 MG TAB PO SCH (09:00)
[2020-07-08] MEDS ORDERED: FERROUS SULFATE 325MG TAB PO SCH (09:00)
[2020-07-08] MEDS ORDERED: CETIRIZINE (ZyrTEC) 10 MG TAB PO SCH (09:00)
[2020-07-08] MEDS ORDERED: PANTOPRAZOLE 40MG TAB (PROTONIX) PO SCH (09:00)
[2020-07-08] MEDS ORDERED: VENLAFAXINE **XR** 75MG CAPSULE PO SCH (09:00)
== END 2020-07-08 00:15 | disposition short-term general hospital (02) | DRG 282 ==
LOC: M ED 14:25 → M ED INP 19:40 → ENRESERV 22:05 → M ED INP 07-08 00:28
PROVIDERS: ADMIT Internal Medicine; ATTEND Internal Medicine
DX: K85.90 Acute pancreatitis without necrosis or infection, unspecified (principal); E11.65 Type 2 diabetes mellitus with hyperglycemia; E88.01 Alpha-1-antitrypsin deficiency; J44.9 Chronic obstructive pulmonary disease, unspecified; I10 Essential (primary) hypertension; E03.9 Hypothyroidism, unspecified; F41.9 Anxiety disorder, unspecified; F32.9 Major depressive disorder, single episode, unspecified; F43.10 Post-traumatic stress disorder, unspecified; G47.00 Insomnia, unspecified; E78.5 Hyperlipidemia, unspecified; E66.9 Obesity, unspecified; G43.909 Migraine, unspecified, not intractable, without status migrainosus; G47.33 Obstructive sleep apnea (adult) (pediatric); K21.9 Gastro-esophageal reflux disease without esophagitis; M79.7 Fibromyalgia; Z90.49 Acquired absence of other specified parts of digestive tract; Z87.442 Personal history of urinary calculi; Z86.711 Personal history of pulmonary embolism; Z87.891 Personal history of nicotine dependence; Z79.4 Long term (current) use of insulin; Z79.899 Other long term (current) drug therapy; Z79.01 Long term (current) use of anticoagulants; Z20.822 Contact with and (suspected) exposure to COVID-19; Z88.8 Allergy status to other drugs, medicaments and biological substances; Z68.36 Body mass index [BMI] 36.0-36.9, adult

== ENCOUNTER 2020-07-14 16:27 | Emergency (ER) | payer OTHER ==
[~2020-07-14] VITALS: Ht 160 cm; Wt 92.3 kg
[2020-07-14 19:39] LABS: BASO % 0.4 % (0.0-1.0); EOS # 0.3 10^3/uL (0.0-0.5); EOS % 3.8 % (0.0-3.0); HEMATOCRIT 44.3 % (36.0-47.0); HEMOGLOBIN 14.2 g/dl (12.0-15.5); LYMPH # 2.5 10^3/uL (1.5-5.0); MEAN CORPUSCULAR HEMOGLOBIN 32.9 pg (27.0-33.0); MEAN CORPUSCULAR HGB CONC 32.1 g/dl (32.0-36.5); MEAN CORPUSCULAR VOLUME 102.5 fl (80.0-96.0); MONO # 0.7 10^3/uL (0.0-0.8); MONO % 9.4 % (2.0-8.0); PLATELET COUNT, AUTOMATED 209 10^3/uL (150-450); RED BLOOD COUNT 4.32 10^6/uL (4.00-5.40); WHITE BLOOD COUNT 7.6 10^3/uL (4.0-10.0)
[2020-07-14] MEDS ORDERED: ONDANSETRON 4MG/2ML VIAL IV ONE (19:45)
[2020-07-14] MEDS ORDERED: NS 1,000 ML IV ONE (19:45)
[2020-07-14 20:18] LABS: ALBUMIN 3.4 GM/DL (3.2-5.2); ALT/SGPT 186 U/L (12-78); BILIRUBIN,DIRECT < 0.1 MG/DL (0.0-0.2); BILIRUBIN,TOTAL 0.2 MG/DL (0.2-1.0); BLOOD UREA NITROGEN 14 MG/DL (7-18); CALCIUM LEVEL 8.5 MG/DL (8.5-10.1); CARBON DIOXIDE LEVEL 21 MEQ/L (21-32); CHLORIDE LEVEL 112 MEQ/L (98-107); CREATININE FOR GFR 0.57 MG/DL (0.55-1.30); GLOMERULAR FILTRATION RATE > 60.0 (>58); GLUCOSE, FASTING 218 MG/DL (70-100); LIPASE 733 U/L (73-393); POTASSIUM SERUM 3.8 MEQ/L (3.5-5.1); SODIUM LEVEL 140 MEQ/L (136-145); TOTAL PROTEIN 7.1 GM/DL (6.4-8.2)
[2020-07-14 20:45] LABS: HCG, SERUM QUANTITATIVE < 1.0 MIU/ML
[2020-07-14] MEDS ORDERED: ISOVUE-370 76% 100ML VIAL As Ordered ONE (21:20)
--- NOTE | 2020-07-14 23:05 | REPVR ---
PROCEDURE INFORMATION: Exam: CT Abdomen And Pelvis With Contrast Exam date and time: 07/14/2020 10:42 PM Age: 49 years old Clinical indication: Other: Rectal bleeding TECHNIQUE: Imaging protocol: Computed tomography of the abdomen and pelvis with contrast. Radiation optimization: All CT scans at this facility use at least one of these dose optimization techniques: automated exposure control; mA and/or kV adjustment per patient size (includes targeted exams where dose is matched to clinical indication); or iterative reconstruction. Contrast material: ISOVUE 370; Contrast volume: 100 ml; Contrast route: INTRAVENOUS (IV); COMPARISON: CT ABD/PEL W/IV CONTRAST ONLY 06/19/2020 1:25 PM FINDINGS: Liver: The liver attenuation is 78 Hounsfield units and the spleen is 114 Hounsfield units. Gallbladder and bile ducts: Status post cholecystectomy. Mild biliary dilation which is attributed to prior cholecystectomy and is likely physiologic. The CBD measures 8 mm with tapering to the ampulla. Pancreas: Normal. No ductal dilation. Spleen: Normal. No splenomegaly. Adrenal glands: Normal. No mass. Kidneys and ureters: Normal. No hydronephrosis. Stomach and bowel: Unremarkable. No obstruction. No mucosal thickening. Appendix: Sutures and surgical clips about the cecal tip consistent with prior appendectomy. Intraperitoneal space: Unremarkable. No free air. No significant fluid collection. Vasculature: There is mild calcification of the abdominal aorta with extension into the iliac arteries. Lymph nodes: Unremarkable. No enlarged lymph nodes. Urinary bladder: There is bladder wall thickening, however, the bladder is nondistended and is nonspecific. Reproductive: Unremarkable as visualized. Bones/joints: Unremarkable. No acute fracture. Soft tissues: Unremarkable. IMPRESSION: 1. Mild fatty infiltration of the liver. 2. Status post cholecystectomy and appendectomy. 3. Otherwise negative CT abdomen/pelvis. Electronically signed by: Eugene Matthews On 07/14/2020 23:05:22 PM
[2020-07-14] MEDS ORDERED: AZIT500T5 PO (23:53)
[2020-07-14] MEDS ORDERED: AZITHROMYCIN 250MG TABLET PO ONE (23:55)
[2020-07-15 00:10] VITALS: BP 163/94
== END 2020-07-15 00:24 | disposition home or self-care (01) ==
LOC: M ED 16:27
DX: A09 Infectious gastroenteritis and colitis, unspecified (principal); A08.4 Viral intestinal infection, unspecified; A04.5 Campylobacter enteritis; I50.9 Heart failure, unspecified; E11.40 Type 2 diabetes mellitus with diabetic neuropathy, unspecified; I10 Essential (primary) hypertension; Z87.442 Personal history of urinary calculi; E78.5 Hyperlipidemia, unspecified; E03.9 Hypothyroidism, unspecified; G43.909 Migraine, unspecified, not intractable, without status migrainosus; K21.9 Gastro-esophageal reflux disease without esophagitis; D64.9 Anemia, unspecified; M54.9 Dorsalgia, unspecified; F41.9 Anxiety disorder, unspecified; F32.9 Major depressive disorder, single episode, unspecified; Z86.718 Personal history of other venous thrombosis and embolism; K74.60 Unspecified cirrhosis of liver; E66.9 Obesity, unspecified; Z79.4 Long term (current) use of insulin; Z79.01 Long term (current) use of anticoagulants; Z79.899 Other long term (current) drug therapy; Z88.8 Allergy status to other drugs, medicaments and biological substances
CPT/HCPCS: 36415; 74177; 80048; 80076; 81001; 83690; 84702; 85025; 87505; 96361; 96374; 99283; J2405; Q9967

== ENCOUNTER → 2020-07-20 | Outpatient (CLI) | payer OTHER ==
[2020-07-20 12:10] LABS: CREATININE, URINE 18.4 MG/DL; MALB URINE SIEMENS < 5.0 MG/L; MAU/CREAT RATIO 27.1 MCG/MG (0.0-30.0)
[2020-07-20 12:16] LABS: HEMOGLOBIN A1c 12.2 %
[2020-07-20 12:17] LABS: BLOOD UREA NITROGEN 10 MG/DL (7-18); CALCIUM LEVEL 9.2 MG/DL (8.5-10.1); CARBON DIOXIDE LEVEL 19 MEQ/L (21-32); CHLORIDE LEVEL 108 MEQ/L (98-107); CREATININE FOR GFR 0.81 MG/DL (0.55-1.30); GLOMERULAR FILTRATION RATE > 60.0 (>58); GLUCOSE, FASTING 381 MG/DL (70-100); SODIUM LEVEL 138 MEQ/L (136-145)
== END ==
LOC: M LAB 10:28
PROVIDERS: ATTEND Family Medicine
DX: E11.9 Type 2 diabetes mellitus without complications (principal); E03.9 Hypothyroidism, unspecified

== ENCOUNTER 2020-07-21 16:49 | Emergency (ER) | payer OTHER ==
[~2020-07-21] VITALS: Ht 160 cm; Wt 91.2 kg
[~2020-07-21 16:49] MED LIST changes: +BACTDSTA PO; +GABA-283 PO; -GABA-845 PO; -SULF1TAB93 PO
[2020-07-21 16:50] VITALS: BP 170/83
[2020-07-21] MEDS ORDERED: COMBIVENT RESPIMAT 100-20MCG INHALER 4GM INH SCH (18:30)
--- NOTE | 2020-07-21 19:28 | REP ---
INDICATION: SOB. COMPARISON: None. FINDINGS: The superior mediastinal structures are midline. The cardiac silhouette is unremarkable in size, shape, and position. The diaphragmatic surfaces of the lungs are regular, and the costophrenic angles are clear. The pulmonary jara are clear. The imaged osseous structures are intact. IMPRESSION: There is no acute cardiopulmonary disease. <Electronically signed by Emeterio Karimi > 07/21/20 [id number]
[2020-07-21 19:31] LABS: RSV AMPLIFICATION NEGATIVE (NEGATIVE)
[2020-07-21 19:51] LABS: BASO # 0.1 10^3/uL (0.0-0.2); BASO % 0.6 % (0.0-1.0); EOS % 0.1 % (0.0-3.0); HEMATOCRIT 41.3 % (36.0-47.0); HEMOGLOBIN 13.2 g/dl (12.0-15.5); LYMPH # 1.7 10^3/uL (1.5-5.0); LYMPH % 11.9 % (24.0-44.0); MEAN CORPUSCULAR HEMOGLOBIN 32.4 pg (27.0-33.0); MEAN CORPUSCULAR VOLUME 101.2 fl (80.0-96.0); MONO # 0.3 10^3/uL (0.0-0.8); MONO % 2.3 % (2.0-8.0); NEUTROPHILS # 11.7 10^3/uL (1.5-8.5); NEUTROPHILS % 81.9 % (36.0-66.0); PLATELET COUNT, AUTOMATED 323 10^3/uL (150-450); RED BLOOD COUNT 4.08 10^6/uL (4.00-5.40); WHITE BLOOD COUNT 14.3 10^3/uL (4.0-10.0)
[2020-07-21 20:56] LABS: ERYTHROCYTE SEDIMENTATION RATE 16 mm/hr (0-20)
[2020-07-21 21:53] LABS: VENOUS BASE EXCESS -4.8 (-2.0-2.0); VENOUS HCO3 18.4 MEQ/L (23.0-27.0); VENOUS O2 SATURATION 99.2 % (60.0-80.0); VENOUS PARTIAL PRESSURE CO2 29.2 mmHg (38.0-50.0); VENOUS PARTIAL PRESSURE O2 141.2 mmHg (30.0-50.0); VENOUS PH 7.417 UNITS (7.330-7.430); VENOUS STANDARD HCO3 20.6 MEQ/L; VENOUS TOTAL CO2 19.3 MEQ/L (24.0-28.0)
[2020-07-21] MEDS ORDERED: methylPREDNISolone 125MG 2ML VIAL IV ONE (22:15)
== END 2020-07-21 22:59 | disposition home or self-care (01) ==
LOC: M ED 16:49
DX: J45.901 Unspecified asthma with (acute) exacerbation (principal); I11.0 Hypertensive heart disease with heart failure; I50.9 Heart failure, unspecified; E78.5 Hyperlipidemia, unspecified; Z79.899 Other long term (current) drug therapy; Z79.4 Long term (current) use of insulin; Z79.890 Hormone replacement therapy; Z88.8 Allergy status to other drugs, medicaments and biological substances
CPT/HCPCS: 71046; 80047; 82803; 85025; 85652; 86140; 87631; 94640; 94664; 96374; 99283; J2930

== ENCOUNTER 2020-07-27 16:59 | Emergency (ER) | payer OTHER ==
[~2020-07-27] VITALS: Ht 160 cm; Wt 89.6 kg
[2020-07-27] MEDS ORDERED: ONDANSETRON 4MG/2ML VIAL IV ONE (19:35)
[2020-07-27] MEDS ORDERED: NS 1,000 ML IV ONE (19:35)
[2020-07-27 19:46] LABS: BASO # 0.1 10^3/uL (0.0-0.2); BASO % 0.6 % (0.0-1.0); EOS # 0.4 10^3/uL (0.0-0.5); EOS % 3.1 % (0.0-3.0); HEMATOCRIT 46.2 % (36.0-47.0); LYMPH # 3.9 10^3/uL (1.5-5.0); LYMPH % 31.2 % (24.0-44.0); MEAN CORPUSCULAR HEMOGLOBIN 32.9 pg (27.0-33.0); MEAN CORPUSCULAR HGB CONC 32.5 g/dl (32.0-36.5); MEAN CORPUSCULAR VOLUME 101.3 fl (80.0-96.0); MONO % 8.1 % (2.0-8.0); NEUTROPHILS % 56.3 % (36.0-66.0); PLATELET COUNT, AUTOMATED 276 10^3/uL (150-450); RED BLOOD COUNT 4.56 10^6/uL (4.00-5.40); WHITE BLOOD COUNT 12.4 10^3/uL (4.0-10.0)
[2020-07-27 20:07] LABS: BILIRUBIN,DIRECT 0.2 MG/DL (0.0-0.2); BILIRUBIN,TOTAL 0.4 MG/DL (0.2-1.0); TOTAL PROTEIN 7.9 GM/DL (6.4-8.2)
[2020-07-27] MEDS ORDERED: ISOVUE-370 76% 100ML VIAL As Ordered ONE (20:13)
[2020-07-27] MEDS ORDERED: HALOPERIDOL 5MG/ML VIAL (J1630 PER 1) IV ONE (20:35)
--- NOTE | 2020-07-27 20:52 | REPVR ---
PROCEDURE INFORMATION: Exam: CT Abdomen And Pelvis With Contrast Exam date and time: 07/27/2020 8:17 PM Age: 49 years old Clinical indication: Abdominal pain; Localized; Upper; Additional info: Upper abd pain into back, HX of pancreatitis TECHNIQUE: Imaging protocol: Computed tomography of the abdomen and pelvis with contrast. Radiation optimization: All CT scans at this facility use at least one of these dose optimization techniques: automated exposure control; mA and/or kV adjustment per patient size (includes targeted exams where dose is matched to clinical indication); or iterative reconstruction. Contrast material: ISOVUE 370; Contrast volume: 100 ml; Contrast route: INTRAVENOUS (IV); COMPARISON: CT ABD/PEL W/IV CONTRAST ONLY 07/14/2020 10:33 PM FINDINGS: Liver: There is a diffuse decrease in hepatic parenchymal density, consistent with steatosis. Gallbladder and bile ducts: There has been a cholecystectomy. Pancreas: Normal. No ductal dilation. Spleen: Normal. No splenomegaly. Adrenal glands: Normal. No mass. Kidneys and ureters: Normal. No hydronephrosis. Stomach and bowel: Small duodenal diverticulum. There is modestly increased feces throughout the colon consistent with constipation. Appendix: There has been an appendectomy. Intraperitoneal space: Unremarkable. No free air. No significant fluid collection. Vasculature: The aortoiliac vessels demonstrate mild atherosclerotic calcification. Lymph nodes: Unremarkable. No enlarged lymph nodes. Urinary bladder: Unremarkable as visualized. Reproductive: Unremarkable as visualized. Bones/joints: Unremarkable. No acute fracture. Soft tissues: Unremarkable. IMPRESSION: 1. There is a diffuse decrease in hepatic parenchymal density, consistent with steatosis. 2. There has been a cholecystectomy. 3. There is modestly increased feces throughout the colon consistent with constipation. Electronically signed by: Arnie Ayala On 07/27/2020 20:52:25 PM
[2020-07-27] MEDS ORDERED: KETAMINE HCL IV ONE ×2 (21:20→21:42)
[2020-07-27] MEDS ORDERED: NS IV ONE ×2 (21:20→21:42)
[2020-07-28 00:02] VITALS: BP 158/87
[2020-07-28] MEDS ORDERED: MIRA3350 PO (00:25)
== END 2020-07-28 00:48 | disposition home or self-care (01) ==
LOC: M ED 16:59
DX: K59.00 Constipation, unspecified (principal); E11.9 Type 2 diabetes mellitus without complications; E03.9 Hypothyroidism, unspecified; J45.909 Unspecified asthma, uncomplicated; J44.9 Chronic obstructive pulmonary disease, unspecified; K76.0 Fatty (change of) liver, not elsewhere classified; K21.9 Gastro-esophageal reflux disease without esophagitis; N18.9 Chronic kidney disease, unspecified; Z86.711 Personal history of pulmonary embolism; Z87.442 Personal history of urinary calculi; K74.60 Unspecified cirrhosis of liver; G43.909 Migraine, unspecified, not intractable, without status migrainosus; Z79.01 Long term (current) use of anticoagulants; Z79.4 Long term (current) use of insulin; Z79.899 Other long term (current) drug therapy; Z88.8 Allergy status to other drugs, medicaments and biological substances
CPT/HCPCS: 74177; 80047; 80076; 81001; 83690; 84702; 85025; 87086; 96365; 96375; 99284; J1630; J2405; Q9967

== ENCOUNTER 2020-08-02 10:13 | Outpatient (RCR) | payer OTHER ==
[~2020-08-02 10:13] MED LIST changes: +MIRA3350 PO
== END 2020-08-14 ==
LOC: M PT 10:13
PROVIDERS: ATTEND Physician Assistant
DX: S43.51XD Sprain of right acromioclavicular joint, subsequent encounter (principal); M75.01 Adhesive capsulitis of right shoulder; X58.XXXD Exposure to other specified factors, subsequent encounter; Y92.9 Unspecified place or not applicable; Y93.9 Activity, unspecified; Y99.9 Unspecified external cause status

== ENCOUNTER 2020-08-29 10:58 | Outpatient (RCR) | payer OTHER ==
[~2020-08-29 10:58] MED LIST changes: -DOXY100C37 PO; +DOXY1CAP62 PO
== END 2020-09-13 ==
LOC: M PT 10:58
PROVIDERS: ATTEND Physician Assistant
DX: S43.51XD Sprain of right acromioclavicular joint, subsequent encounter (principal); M75.01 Adhesive capsulitis of right shoulder; X58.XXXD Exposure to other specified factors, subsequent encounter; Y92.9 Unspecified place or not applicable; Y93.9 Activity, unspecified; Y99.9 Unspecified external cause status

== ENCOUNTER 2020-09-13 12:54 | Emergency (ER) | payer OTHER ==
[~2020-09-13] VITALS: Ht 160 cm; Wt 89.1 kg
[2020-09-13 14:12] LABS: BASO # 0.1 10^3/uL (0.0-0.2); BASO % 0.8 % (0.0-1.0); EOS # 0.2 10^3/uL (0.0-0.5); EOS % 1.8 % (0.0-3.0); HEMATOCRIT 41.5 % (36.0-47.0); HEMOGLOBIN 13.6 g/dl (12.0-15.5); LYMPH # 3.6 10^3/uL (1.5-5.0); LYMPH % 34.3 % (24.0-44.0); MEAN CORPUSCULAR HEMOGLOBIN 34.2 pg (27.0-33.0); MEAN CORPUSCULAR HGB CONC 32.8 g/dl (32.0-36.5); MEAN CORPUSCULAR VOLUME 104.3 fl (80.0-96.0); MONO # 0.8 10^3/uL (0.0-0.8); MONO % 7.6 % (2.0-8.0); NEUTROPHILS # 5.7 10^3/uL (1.5-8.5); NEUTROPHILS % 54.7 % (36.0-66.0); PLATELET COUNT, AUTOMATED 287 10^3/uL (150-450); RED BLOOD COUNT 3.98 10^6/uL (4.00-5.40); WHITE BLOOD COUNT 10.4 10^3/uL (4.0-10.0)
[2020-09-13 14:33] LABS: ALBUMIN 4.2 GM/DL (3.2-5.2); ALT/SGPT 60 U/L (12-78); BILIRUBIN,DIRECT < 0.1 MG/DL (0.0-0.2); BILIRUBIN,TOTAL 0.4 MG/DL (0.2-1.0); BLOOD UREA NITROGEN 24 MG/DL (7-18); CALCIUM LEVEL 9.1 MG/DL (8.5-10.1); CARBON DIOXIDE LEVEL 24 MEQ/L (21-32); CHLORIDE LEVEL 105 MEQ/L (98-107); GLOMERULAR FILTRATION RATE > 60.0 (>58); GLUCOSE, FASTING 169 MG/DL (70-100); LIPASE 160 U/L (73-393); POTASSIUM SERUM 3.3 MEQ/L (3.5-5.1); SODIUM LEVEL 136 MEQ/L (136-145); TOTAL PROTEIN 8.3 GM/DL (6.4-8.2)
[2020-09-13] MEDS ORDERED: MORPHINE 2 MG/ML 1ML VIAL (J2270) IV ONE (15:30)
[2020-09-13] MEDS ORDERED: NS 1,000 ML IV ONE (15:30)
[2020-09-13] MEDS ORDERED: METOCLOPRAMIDE INJ 10MG/2ML VIAL (J2765 PER 1) IV ONE (16:00)
[2020-09-13 17:56] VITALS: BP 134/71
== END 2020-09-13 17:59 | disposition home or self-care (01) ==
LOC: M ED 12:54
DX: R10.11 Right upper quadrant pain (principal); R10.12 Left upper quadrant pain; I50.9 Heart failure, unspecified; E11.9 Type 2 diabetes mellitus without complications; I10 Essential (primary) hypertension; E03.9 Hypothyroidism, unspecified; D64.9 Anemia, unspecified; F41.9 Anxiety disorder, unspecified; F32.9 Major depressive disorder, single episode, unspecified; F43.10 Post-traumatic stress disorder, unspecified; E78.5 Hyperlipidemia, unspecified; K21.9 Gastro-esophageal reflux disease without esophagitis; K76.0 Fatty (change of) liver, not elsewhere classified; G43.909 Migraine, unspecified, not intractable, without status migrainosus; Z86.711 Personal history of pulmonary embolism; Z86.718 Personal history of other venous thrombosis and embolism; Z87.891 Personal history of nicotine dependence; Z79.4 Long term (current) use of insulin; Z79.899 Other long term (current) drug therapy; Z88.8 Allergy status to other drugs, medicaments and biological substances
CPT/HCPCS: 36415; 80048; 80076; 81001; 83690; 85025; 96361; 96374; 96375; 99284; J2270; J2765

== ENCOUNTER → 2020-10-18 | Outpatient (REF) | payer OTHER | LOC: M SFHCLUC 18:56 | PROVIDERS: ATTEND Nurse Practitioner Family | DX: J06.9 Acute upper respiratory infection, unspecified (principal) ==

== ENCOUNTER 2020-10-19 17:53 | Emergency (ER) | payer OTHER ==
[~2020-10-19] VITALS: Ht 160 cm; Wt 89.5 kg
[~2020-10-19 17:53] MED LIST changes: -CEFD1CAP8 PO; +CEFD300C41 PO; -CYMB60CA3 PO; +CYMB60CA4 PO; +DOXY-443 PO; -DOXY1CAP62 PO; -MONT10TA10 PO; +MONT10TA97 PO; +TIZA10TA PO; -TIZA4TAB4 PO
[2020-10-19] MEDS ORDERED: NS 1,000 ML IV ONE (19:20)
[2020-10-19] MEDS ORDERED: ACETAMINOPHEN TAB 650MG DOSE (2X325MG) PO ONE (19:30)
[2020-10-19 19:46] VITALS: BP 159/76
[2020-10-19 20:11] LABS: BASO # 0.1 10^3/uL (0.0-0.2); BASO % 0.5 % (0.0-1.0); EOS # 0.3 10^3/uL (0.0-0.5); EOS % 1.6 % (0.0-3.0); HEMATOCRIT 42.8 % (36.0-47.0); HEMOGLOBIN 14.1 g/dl (12.0-15.5); LYMPH # 1.5 10^3/uL (1.5-5.0); LYMPH % 8.8 % (24.0-44.0); MEAN CORPUSCULAR HEMOGLOBIN 33.2 pg (27.0-33.0); MEAN CORPUSCULAR HGB CONC 32.9 g/dl (32.0-36.5); MEAN CORPUSCULAR VOLUME 100.7 fl (80.0-96.0); MONO # 1.3 10^3/uL (0.0-0.8); MONO % 7.5 % (2.0-8.0); NEUTROPHILS # 14.1 10^3/uL (1.5-8.5); NEUTROPHILS % 80.9 % (36.0-66.0); PLATELET COUNT, AUTOMATED 269 10^3/uL (150-450); RED BLOOD COUNT 4.25 10^6/uL (4.00-5.40); WHITE BLOOD COUNT 17.4 10^3/uL (4.0-10.0)
[2020-10-19 20:43] LABS: ALBUMIN 3.9 GM/DL (3.2-5.2); ALT/SGPT 91 U/L (12-78); BILIRUBIN,DIRECT 0.1 MG/DL (0.0-0.2); BILIRUBIN,TOTAL 0.3 MG/DL (0.2-1.0); BLOOD UREA NITROGEN 21 MG/DL (7-18); CALCIUM LEVEL 10.3 MG/DL (8.5-10.1); CARBON DIOXIDE LEVEL 23 MEQ/L (21-32); CHLORIDE LEVEL 108 MEQ/L (98-107); CK-MB VALUE MASS < 1.0 NG/ML (<3.6); CPK CREATINE PHOSPHOKINASE 42 U/L (26-192); CREATININE FOR GFR 0.76 MG/DL (0.55-1.30); GLOMERULAR FILTRATION RATE > 60.0 (>58); GLUCOSE, FASTING 199 MG/DL (70-100); LIPASE 140 U/L (73-393); MB/CK RELATIVE INDEX 2.38 (< OR =4); POTASSIUM SERUM 3.9 MEQ/L (3.5-5.1); SODIUM LEVEL 140 MEQ/L (136-145); THYROID STIMULATING HORMONE 0.448 uIU/ML (0.358-3.740); TOTAL PROTEIN 8.1 GM/DL (6.4-8.2); TROPONIN I < 0.02 NG/ML (< 0.10)
== END 2020-10-19 23:16 | disposition home or self-care (01) ==
LOC: M ED 17:53
DX: B34.8 Other viral infections of unspecified site (principal); R00.0 Tachycardia, unspecified; I44.0 Atrioventricular block, first degree; I50.9 Heart failure, unspecified; J45.909 Unspecified asthma, uncomplicated; N17.9 Acute kidney failure, unspecified; K21.9 Gastro-esophageal reflux disease without esophagitis; Z79.4 Long term (current) use of insulin; Z79.899 Other long term (current) drug therapy; Z88.8 Allergy status to other drugs, medicaments and biological substances

== ENCOUNTER 2020-11-14 20:19 | Emergency (ER) | payer OTHER ==
[~2020-11-14] VITALS: Ht 160 cm; Wt 88.6 kg
[~2020-11-14 20:19] MED LIST changes: +CEFD1CAP8 PO; -CEFD300C41 PO; +CYMB60CA3 PO; -CYMB60CA4 PO; -DOXY-443 PO; +DOXY1CAP62 PO; +MONT10TA10 PO; -MONT10TA97 PO; -TIZA10TA PO; +TIZA4TAB4 PO
[2020-11-14] MEDS ORDERED: NS 1,000 ML IV ONE (22:50)
[2020-11-14] MEDS ORDERED: PROMETHAZINE INJ 25 MG/ML VIAL (J2550) IV ONE (22:50)
[2020-11-14] MEDS ORDERED: MORPHINE 4 MG/ML 1ML VIAL/SYRINGE (J2270) IV ONE (22:50)
[2020-11-14 23:23] LABS: BASO # 0.1 10^3/uL (0.0-0.2); BASO % 0.8 % (0.0-1.0); EOS # 0.6 10^3/uL (0.0-0.5); EOS % 5.7 % (0.0-3.0); HEMOGLOBIN 15.2 g/dl (12.0-15.5); LYMPH # 3.3 10^3/uL (1.5-5.0); LYMPH % 31.1 % (24.0-44.0); MEAN CORPUSCULAR HEMOGLOBIN 33.3 pg (27.0-33.0); MEAN CORPUSCULAR VOLUME 100.7 fl (80.0-96.0); NEUTROPHILS # 5.7 10^3/uL (1.5-8.5); PLATELET COUNT, AUTOMATED 311 10^3/uL (150-450); RED BLOOD COUNT 4.57 10^6/uL (4.00-5.40); WHITE BLOOD COUNT 10.7 10^3/uL (4.0-10.0)
[2020-11-14] MEDS ORDERED: ISOVUE-370 76% 100ML VIAL As Ordered ONE (23:32)
[2020-11-14 23:56] LABS: ALBUMIN 4.1 GM/DL (3.2-5.2); ALT/SGPT 84 U/L (12-78); BILIRUBIN,DIRECT < 0.1 MG/DL (0.0-0.2); BILIRUBIN,TOTAL 0.3 MG/DL (0.2-1.0); LIPASE 200 U/L (73-393); TOTAL PROTEIN 8.4 GM/DL (6.4-8.2)
--- NOTE | 2020-11-15 00:46 | REPVR ---
PROCEDURE INFORMATION: Exam: CT Abdomen And Pelvis With Contrast Exam date and time: 11/14/2020 10:47 PM Age: 50 years old Clinical indication: Abdominal pain; Generalized; Additional info: Upper abd pain TECHNIQUE: Imaging protocol: Computed tomography of the abdomen and pelvis with contrast. Radiation optimization: All CT scans at this facility use at least one of these dose optimization techniques: automated exposure control; mA and/or kV adjustment per patient size (includes targeted exams where dose is matched to clinical indication); or iterative reconstruction. Contrast material: ISO; Contrast volume: 100 ml; Contrast route: INTRAVENOUS (IV); COMPARISON: CT ABD/PEL W/IV CONTRAST ONLY 07/27/2020 8:13 PM FINDINGS: Lungs: No suspicious mass or airspace process in the visualized lung bases. Liver: Heterogeneous attenuation of the liver without discrete mass. Gallbladder and bile ducts: Prominent central bile ducts, likely postcholecystectomy capacitance effect. Pancreas: Pancreas appears normal. No focal mass or peripancreatic inflammation. Spleen: Spleen appears homogeneous without focal mass. Adrenal glands: Adrenal glands are normal in appearance. Kidneys and ureters: Kidneys are unremarkable aside from a nonobstructive lower pole right renal stone. Stomach and bowel: No evidence of small bowel obstruction. Moderate pattern of colonic stool is present. Appendix: Appendix is not visualized. Cecal tip suture line suggests prior appendix resection. Intraperitoneal space: No pneumoperitoneum. Vasculature: Click aorta; Main portal and splenic veins enhance normally. Lymph nodes: No enlarged lymph nodes. Urinary bladder: Urinary bladder appears normal. Reproductive: Female reproductive organs appear unremarkable. Bones/joints: Bony structures show no acute fracture or destructive process. Soft tissues: Unremarkable. IMPRESSION: 1. Heterogeneous enhancement and attenuation in the liver without discrete mass. This may be related to imaging phase. 2. Nonobstructive lower pole right renal stone. 3. Prominent diffuse colonic stool suggesting an element of constipation Electronically signed by: Jack Hathaway On 11/15/2020 00:45:28 AM
[2020-11-15] MEDS ORDERED: REGL10TA6 PO (01:26)
[2020-11-15 02:07] VITALS: BP 128/73
== END 2020-11-15 02:10 | disposition home or self-care (01) ==
LOC: M ED 20:19
DX: K59.00 Constipation, unspecified (principal); E11.65 Type 2 diabetes mellitus with hyperglycemia; I50.9 Heart failure, unspecified; I10 Essential (primary) hypertension; E78.5 Hyperlipidemia, unspecified; G62.9 Polyneuropathy, unspecified; E03.9 Hypothyroidism, unspecified; J45.909 Unspecified asthma, uncomplicated; G47.33 Obstructive sleep apnea (adult) (pediatric); F41.9 Anxiety disorder, unspecified; K74.60 Unspecified cirrhosis of liver; Z87.442 Personal history of urinary calculi; E66.9 Obesity, unspecified; N20.0 Calculus of kidney; Z79.4 Long term (current) use of insulin; Z79.01 Long term (current) use of anticoagulants; Z79.899 Other long term (current) drug therapy; Z88.8 Allergy status to other drugs, medicaments and biological substances
CPT/HCPCS: 74177; 80047; 80076; 81001; 83690; 84702; 85025; 96361; 96374; 96375; 99284; J2270; Q9967

== ENCOUNTER 2020-11-26 14:01 | Inpatient (IN) | payer OTHER ==
[~2020-11-26] VITALS: Ht 160 cm; Wt 88.2 kg
[2020-11-26 16:13] LABS: BASO # 0.1 10^3/uL (0.0-0.2); BASO % 0.8 % (0.0-1.0); EOS # 0.5 10^3/uL (0.0-0.5); EOS % 4.9 % (0.0-3.0); HEMATOCRIT 41.9 % (36.0-47.0); HEMOGLOBIN 13.7 g/dl (12.0-15.5); LYMPH # 3.5 10^3/uL (1.5-5.0); LYMPH % 36.1 % (24.0-44.0); MEAN CORPUSCULAR HEMOGLOBIN 33.1 pg (27.0-33.0); MEAN CORPUSCULAR HGB CONC 32.7 g/dl (32.0-36.5); MEAN CORPUSCULAR VOLUME 101.2 fl (80.0-96.0); MONO # 0.8 10^3/uL (0.0-0.8); MONO % 8.8 % (2.0-8.0); NEUTROPHILS # 4.7 10^3/uL (1.5-8.5); NEUTROPHILS % 48.8 % (36.0-66.0); PLATELET COUNT, AUTOMATED 291 10^3/uL (150-450); RED BLOOD COUNT 4.14 10^6/uL (4.00-5.40); WHITE BLOOD COUNT 9.6 10^3/uL (4.0-10.0)
[2020-11-26] MEDS ORDERED: ONDANSETRON 4MG/2ML VIAL IV ONE (16:35)
[2020-11-26] MEDS: MORPHINE 4 MG/ML 1ML VIAL/SYRINGE (J2270) IV PRN ×2 (16:47→17:37)
[2020-11-26 16:50] LABS: ALBUMIN 3.9 GM/DL (3.2-5.2); ALT/SGPT 115 U/L (12-78); BILIRUBIN,DIRECT < 0.1 MG/DL (0.0-0.2); BILIRUBIN,TOTAL 0.3 MG/DL (0.2-1.0); LIPASE 1179 U/L (73-393); TOTAL PROTEIN 7.8 GM/DL (6.4-8.2)
--- NOTE | 2020-11-26 18:20 | REP ---
INDICATION: UPPER ABDOMINAL PAIN COMPARISON: 10/19/2020. TECHNIQUE: PA/Lateral FINDINGS: Lungs: Clear, no infiltrate. Heart: Normal in size. Mediastinum: Mediastinal silhouette unremarkable. Pleural angles: Unremarkable.. Bones and soft tissues: Unremarkable. IMPRESSION: No acute pulmonary disease. <Electronically signed by Emir Bangura > 11/26/20 [id number]
[2020-11-26] MEDS: HYDROMORPHONE HCL 0.5 MG/ 0.5 ML SYRINGE (J1170 PER 1) IV PRN ×2 (18:31→20:09)
[2020-11-26] MEDS ORDERED: MORPHINE 2 MG/ML 1ML VIAL (J2270) IV PRN (18:35)
[2020-11-26] MEDS ORDERED: GLUCAGON INJ 1MG VIAL SC PRN (18:35)
[2020-11-26] MEDS ORDERED: GLUCOSE 4GM CHEW TABLET PO PRN (18:35)
[2020-11-26] MEDS ORDERED: ONDANSETRON 4MG/2ML VIAL IV PRN (18:35)
[2020-11-26] MEDS ORDERED: DEXTROSE 50% 50 ML SYRINGE IV PRN (18:35)
[2020-11-26] MEDS ORDERED: INSU100I28 PO (18:54)
[2020-11-26] MEDS ORDERED: HOME MED LIST COMPLETE! XX SCH (18:55)
[2020-11-26 19:00] LABS: MAGNESIUM LEVEL 2.1 MG/DL (1.8-2.4)
--- NOTE | 2020-11-26 19:09 | HPEPDOC ---
General Date of Admission 11/26/20 Date of Service: Nov 26, 2020 Chief Complaint The patient is a 50-year-old female admitted with a reason for visit of Diarrhea / Vomiting / Abd Pain. Source: Patient History of Present Illness Hannah Vail is a 50 yr old F with significant hx of DM, COPD, HTN, fibromyalgia and recurrent pancreatitis who presents with c/o abdominal pain. Pain is mid upper quadrant wrapping around to her back, most tender around the RUQ area. Pt has been experiencing this pain x1 week. She describes as severe level cramping type pain which is similar to the pain she had in the past with acute pancreatitis. Associated symptoms of n/v, loose stools and poor appetite. Eating/drinking makes pain worse; pain medication did help and she reports 09/23 presently. The cause of her recurrent pancreatitis has been unclear and in June she was sent to [facility] while admitted with pancreatitis; pt reports she has alpha 1 antitrypsin deficiency and antimitochondrial antibodies hx. She reports she had genetic testing was done, but results are to be discussed with her telemedicine appt January 12. She reports while at [facility] they did give her a medication that helped with "pancreas spasming" that starts with a "U". They gave her a 3 month supply and she took it until completed in September. She report she did see her GI doctor, Dr. Mathew and he recommended she f/u with [facility]. She has not had any other episodes prior to the past week which brings her in now. Pt also notably had a fall in September and has a cast of R arm from a thumb fracture, she walks wiht cane at baseline and is soon to have a home health aid help with household needs/ showering at times. She does live with her daughter. Of note, Pt afebrile, normotensive and mildly tachycardic. Lactic 1.1., No leukocytosis. AST/ALT/ alk phos mildly elevated. Lipase 1179. BG 165. UA pend. CXR nonacute. Pt will be admitted for further evaluation and management of presenting concerns . Home Medications Scheduled Apixaban (Eliquis) 5 Mg Tablet, 5 MG PO BID, (Reported) Buspirone HCl (Buspirone HCl) 30 Mg Tablet, 30 MG PO BID, (Reported) Cetirizine HCl (Cetirizine HCl) 10 Mg Tab, 10 MG PO DAILY, (Reported) Ertugliflozin Pidolate (Steglatro) 5 Mg Tablet, 5 MG PO DAILY, (Reported) Ferrous Sulfate (Ferrous Sulfate) 325 Mg Tablet, 325 MG PO DAILY, (Reported) Gabapentin (Gabapentin) 600 Mg Tablet, 600 MG PO TID, (Reported) Insulin Glargine,Hum.rec.anlog (Basaglar Kwikpen U-100) 100 Unit/1 Ml Insuln.pen, 80 UNITS SC BID, (Reported) Insulin Glargine,Hum.rec.anlog (Semglee Pen) 100 Unit/Ml (3 Ml) Insuln.pen, 80 MG PO BID, (Reported) Insulin Human Regular (Humulin R) 1 Units/0.01 Ml Soln, 1 DOSE SC ACHS, (Reported) PER SLIDING SCALE Levothyroxine Sodium (Synthroid) 25 Mcg Tab, 25 MCG PO DAILY, (Reported) Lisinopril (Lisinopril) 10 Mg Tab, 10 MG PO DAILY, (Reported) Montelukast Sodium (Montelukast Sodium) 10 Mg Tablet, 10 MG PO QHS, (Reported) Pantoprazole Sodium (Protonix) 40 Mg Tab, 40 MG PO BID, (Reported) Prazosin HCl (Prazosin HCl) 2 Mg Capsule, 4 MG PO QHS, (Reported) Tizanidine HCl (Tizanidine HCl) 4 Mg Tab, 4 MG PO TID, (Reported) Topiramate (Topiramate) 50 Mg Tab, 50 MG PO BID, (Reported) Venlafaxine HCl (Venlafaxine HCl ER) 150 Mg Tab.er.24, 150 MG PO DAILY, (Reported) Scheduled PRN Albuterol Sulfate (Ventolin Hfa) 108 Mcg/Act Aer, 2 PUFFS INH Q4H PRN for SHORTNESS OF BREATH, (Reported) Cyclobenzaprine HCl (Cyclobenzaprine HCl) 10 Mg Tablet, 10 MG PO TID PRN for MUSCLE SPASMS, (Reported) Docusate Sodium (Colace) 100 Mg Cap, 100 MG PO DAILY PRN for CONSTIPATION, (Reported) Hydrocodone/Acetaminophen (Hydrocodone-Acetamin 5-325 mg) 1 Each Tablet, 1 TAB PO Q6H PRN for PAIN, (Reported) Ipratropium/Albuterol Sulfate (Iprat-Albut 0.5-3(2.5) mg/3 ml) 3 Ml Ampul.neb, 1 VIAL NEB Q4H PRN for SHORTNESS OF BREATH, (Reported) Metoclopramide HCl (Reglan) 10 Mg Tablet, 10 MG PO Q6H PRN for NAUSEA Polyethylene Glycol 3350 (Miralax) 119 Gm Powder, 17 GM PO DAILY PRN for CONSTIPATION dilute in 8 ounces of water or juice Polyvinyl Alcohol (Artificial Tears) 1.4 % Debora, 1 DROP OU BID PRN for DRY EYES, (Reported) Sumatriptan Succinate (Sumatriptan Succinate) 50 Mg Tab, 50 MG PO BID PRN for MIGRAINE, (Reported) Triamcinolone Acetonide (Triamcinolone Acetonide) 0.1 % Lot, 1 DOSE EXT BID PRN for RASH, (Reported) USES ON ELBOWS AND FINGERS Allergies Coded Allergies: meclizine (Verified Allergy, Severe, shock, 11/26/20) prednisone (Verified Allergy, Intermediate, hives, 11/26/20) PT STATES ONLY REACTION TO A SUPERVISOR BOTTLE MACHINES THE TABLETS; LIQUID FORMULATIONS ARE FINE metformin (Verified Adverse Reaction, Intermediate, kidney problems, 11/26/20) Past Medical History Medical History AMA COPD / Alpha-1 antitrypsin deficiency IDDM Essential HTN PE (unprovoked on eliquis) Hypothyroidism Anxiety, depression, PTSD, Insomnia Dyslipidemia Migraines WANDY GERD Fibromyalgia Nephrolithiasis Recurrent pancreatitits Surgical History Cholecystectomy Appendectomy 3 Orthodontic surgery Port placement w subsequent removal Family History Significant Family History: Cancer, Diabetes, Hypertension Cancer - Mother; Hypertension and diabetes - Mother and father Social History * Smoker: former Smoker (20 years 1ppd), cigarettes Alcohol: rarely Drugs: denies Recent Travel/Sick Contacts: Denies: Recent travel, Recent sick contacts Psychosocial History: Anxiety, PTSD A-FIB/CHADSVASC A-FIB History Current/History of A-Fib/PAF?: No Current PO Anticoag Therapy: Yes Review of Systems Constitutional: Denies: Chills, Fever, Night Sweats Eyes: Denies: Pain, Vision change ENT: Denies: Head Aches, Ear Pain, Dysphagia Skin: Denies: Rash, Lesions, Breakdown Pulmonary: Denies: Dyspnea, Cough Cardiovascular: Denies: Chest Pain, Palpitations, Orthopnea, Paroxysmal Noc. Dy spnea, Lt Headedness Gastrointestinal: Reports: Nausea, Abdominal Pain; Denies: Vomiting, Diarrhea Genitourinary: Denies: Dysuria, Frequency, Incontinence, Retention Hematologic: Denies: Bruising, Bleeding Excessively Musculoskeletal: Denies: Neck Pain, Back Pain, Joint Pain, Muscle Pain, Spasms Neurological: Denies: Weakness, Numbness, Change in speech, Confusion Psych: Reports: Mood Normal; Denies: Depression, Memory Issues Physical Examination General Exam: Positive: Alert, Cooperative, No Acute Distress Eye Exam: Positive: PERRLA, Conjunctiva & lids normal, EOMI; Negative: Sclera icteric ENT Exam: Positive: Atraumatic, Mucous membr. moist/pink, Pharynx Normal Neck Exam: Positive: Supple; Negative: JVD, thyromegaly Chest Exam: Positive: Clear to auscultation, Normal air movement Heart Exam: Positive: Rate Normal, Regular Rhythm, Normal S1, Normal S2; Negative: Murmurs, Rubs Telemetry: Positive: No significant arrhythmia Abdomen Exam: Positive: Normal bowel sounds, Soft, Tenderness; Negative: Hepatospenomegaly Extremity Exam: Positive: Normal pulses; Negative: Clubbing, Cyanosis, Edema Skin Exam: Positive: Nl turgor and temperature; Negative: Breakdown, Lesion Neuro Exam: Positive: Normal Gait, Normal Speech, Cranial Nerves 3-12 NL, Reflexes 2+ Psych Exam: Positive: Mental status NL, Mood NL, Oriented x 3 Vital Signs Vital Signs Date Time Temp Pulse Resp B/P (MAP) Pulse Ox O2 Delivery O2 Flow Rate FiO2 11/26/20 18:31 17 11/26/20 14:01 98.1 109 139/95 (110) 98 Room Air Laboratory Data Labs 24H Laboratory Tests 2 11/26/20 16:00: Immature Granulocyte % (Auto) 0.6, Neutrophils (%) (Auto) 48.8, Lymphocytes (%) (Auto) 36.1, Monocytes (%) (Auto) 8.8H, Eosinophils (%) (Auto) 4.9H, Basophils (%) (Auto) 0.8, Neutrophils # (Auto) 4.7, Lymphocytes # (Auto) 3.5, Monocytes # (Auto) 0.8, Eosinophils # (Auto) 0.5, Basophils # (Auto) 0.1, Nucleated Red Blood Cells % (auto) 0.0, Lactic Acid Level 1.1, Total Bilirubin 0.3, Direct Bilirubin < 0.1, Aspartate Amino Transf (AST/SGOT) 64H, Alanine Aminotransferase (ALT/SGPT) 115H, Alkaline Phosphatase 195H, Total Protein 7.8, Albumin 3.9, Albumin/Globulin Ratio 1.0L, Lipase 1179H 11/26/20 16:12: POC Glucose (Misc Panel) 167H, POC Sodium (Misc Panel) 140, POC Potassium (Misc Panel) 3.7, POC Chloride (Misc Panel) 105, POC Total CO2 (Misc Panel) 23.0, POC Blood Urea Nitrogen (Misc Panel 8, POC Ionized Calcium (Misc Panel) 5.0, POC Creatinine (Misc Panel) 0.6, POC Hematocrit (Misc Panel) 42.0 CBC/BMP Laboratory Tests 11/26/20 16:00 Assessment/Plan 1. Recurrent pancreatitis: NPO, advance diet as tolerated Hydration with LR Antiemetics and analgesics AM labs Obtain records from [facility]. If pt without improvement- determine if GI [facility] would like to see her now or f/u as her tele appointment with results of testing is scheduled for Jan 12. 2. Transaminitis: In setting of above. Plan for lab trend. Avoid hepatotoxic agents as able. 3. Chronic COPD / Alpha-1 antitrypsin deficiency: W/o overt exacerbation. Antonio nue singular and scheduled/prn breathing treatments. Pt to f/u with pulm OP. 4. IDDM: a1c July was 12.2. Accuchecks ACHS, SSI. Pt NPO given above. Oral anti-glycemics held, hypoglycemia protocol ordered. Pt long acting insulin 80u BID typical, will consider reduction vs holding pend her trend tonight. F/u a1c. Pt is on gabapentin for neuropathy. 5. Essential HTN: Monitor BP. Continue home medications. Losartan 6. WANDY: CPAP QHS 7. Hx PE: Pt on Eliquis 8. Hypothyroidism: Continue Levothyroxine 9. Migraines: as needed for breakthrough. Continue home Topiramate , Venlafaxine 10. Anxiety, depression, PTSD, Insomnia: Continue home medications - buspar. 11. GERD: Continue Pantoprazole 12. Fibromyalgia Monitor pain, encourage nonpharm management and continue home medications once reconciled. Cyclobenzaprine, Tizanidine, Hydrocodone. 13. Obesity: Complicates care. 14. R thumb fracture: due to reported mechanical fall in September. Pt with cast, follow measures to prevent cast from getting wet. Pt to be assessed for fall precautions. DVT Px: Eliquis CODE: Full Dispo: home after more than 2 midnight's stay Plan / VTE VTE Prophylaxis Ordered?: Yes CAREY LANDEROS NP Nov 26, 2020 18:58
[2020-11-26 19:15] LABS: HEMOGLOBIN A1c 9.1 %
[2020-11-26 19:42] LABS: ETHYL ALCOHOL (ETHANOL) < 0.003 % (0.000-0.010)
--- NOTE | 2020-11-26 20:18 | ECGEPIP ---
[facility] - ED Test Date: 2020-11-26 Pat Name: PATY CRYSTAL Department: Room: - Gender: Female Graduate Recruiter: KELLY : 1970 Requested By: Nisha Hatch PA-C Order Number: [id number] Reading MD: Debby Schroeder Measurements Intervals [place] Rate: 88 P: 22 GA: 158 QRS: -9 QRSD: 84 T: 26 QT: 372 QTc: 450 Interpretive Statements Normal sinus rhythm Septal infarct , age undetermined NSTTW abnormalities decreased rate 10/19/20 Electronically Signed on 11-26-2020 20:18:10 EDT by Debby Schroeder
[2020-11-26] MEDS: ONDANSETRON 4MG/2ML VIAL IV PRN (20:40)
[2020-11-26] MEDS ORDERED: HumaLOG INSULIN (NovoLOG) PER UNIT SC SCH (21:00)
[2020-11-26 21:03] LABS: RSV AMPLIFICATION NEGATIVE (NEGATIVE)
[2020-11-26 21:21] LABS: AMPHETAMINES LEVEL URINE NEGATIVE (NEGATIVE); BARBITURATES URINE NEGATIVE (NEGATIVE); BENZODIAZEPINES URINE NEGATIVE (NEGATIVE); CANNABINOIDS URINE POSITIVE (NEGATIVE); COCAINE METABOLITE URINE NEGATIVE (NEGATIVE); METHADONE URINE NEGATIVE (NEGATIVE); OPIATES URINE POSITIVE (NEGATIVE); PHENCYCLIDINE URINE NEGATIVE (NEGATIVE)
[2020-11-26] MEDS: LR 1,000 ML IV SCH (22:01)
[2020-11-26] MEDS ORDERED: POLYVINYL ALCOHOL OPHTH SOLN 15 ML(LIQUITEARS) OU PRN (22:55)
[2020-11-26] MEDS ORDERED: ALBUTEROL 90 MCG/ACT 8GM HFA INHALER INH PRN (22:55)
[2020-11-26] MEDS ORDERED: IPRATROPIUM 0.5MG/ALBUTEROL 2.5MG INH SOL UD 3ML (DUONEB) NEB PRN (22:55)
[2020-11-26 23:09] VITALS: BP 148/90
[2020-11-27] MEDS: APIXABAN 5 MG TAB (ELIQUIS) PO SCH ×3 (00:21→21:49)
[2020-11-27] MEDS: busPIRone 10 MG TAB PO SCH ×3 (00:22→21:49)
[2020-11-27] MEDS: GABAPENTIN 300 MG CAP PO SCH ×4 (00:22→21:50)
[2020-11-27] MEDS: tiZANidine 4 MG TAB PO SCH ×4 (00:22→21:49)
[2020-11-27] MEDS: TOPIRAMATE (TopAMAX) 25 MG TAB PO SCH ×3 (00:22→21:50)
[2020-11-27] MEDS: MONTELUKAST 10 MG TAB PO SCH ×2 (00:22→21:49)
[2020-11-27] MEDS: PANTOPRAZOLE 40MG TAB (PROTONIX) PO SCH ×3 (00:22→21:49)
[2020-11-27] MEDS: KETOROLAC 30 MG/ML 1ML VIAL IV PRN ×2 (01:29→08:26)
[2020-11-27 05:55] LABS: BASO # 0.1 10^3/uL (0.0-0.2); BASO % 0.7 % (0.0-1.0); EOS # 0.7 10^3/uL (0.0-0.5); EOS % 6.2 % (0.0-3.0); HEMATOCRIT 37.4 % (36.0-47.0); HEMOGLOBIN 12.1 g/dl (12.0-15.5); LYMPH # 2.8 10^3/uL (1.5-5.0); LYMPH % 25.8 % (24.0-44.0); MEAN CORPUSCULAR HEMOGLOBIN 32.9 pg (27.0-33.0); MEAN CORPUSCULAR HGB CONC 32.4 g/dl (32.0-36.5); MEAN CORPUSCULAR VOLUME 101.6 fl (80.0-96.0); MONO # 0.9 10^3/uL (0.0-0.8); MONO % 8.2 % (2.0-8.0); NEUTROPHILS # 6.3 10^3/uL (1.5-8.5); NEUTROPHILS % 58.7 % (36.0-66.0); PLATELET COUNT, AUTOMATED 264 10^3/uL (150-450); RED BLOOD COUNT 3.68 10^6/uL (4.00-5.40); WHITE BLOOD COUNT 10.7 10^3/uL (4.0-10.0)
[2020-11-27 06:00] VITALS: BP 147/97
[2020-11-27 06:18] LABS: ALBUMIN 3.2 GM/DL (3.2-5.2); ALT/SGPT 167 U/L (12-78); BILIRUBIN,TOTAL 0.4 MG/DL (0.2-1.0); BLOOD UREA NITROGEN 10 MG/DL (7-18); CALCIUM LEVEL 8.8 MG/DL (8.5-10.1); CARBON DIOXIDE LEVEL 25 MEQ/L (21-32); CHLORIDE LEVEL 109 MEQ/L (98-107); CREATININE FOR GFR 0.63 MG/DL (0.55-1.30); GLOMERULAR FILTRATION RATE > 60.0 (>58); GLUCOSE, FASTING 194 MG/DL (70-100); LIPASE 130 U/L (73-393); POTASSIUM SERUM 3.7 MEQ/L (3.5-5.1); SODIUM LEVEL 140 MEQ/L (136-145); TOTAL PROTEIN 6.7 GM/DL (6.4-8.2)
[2020-11-27] MEDS: LR 1,000 ML IV SCH ×2 (07:55→16:00)
[2020-11-27] MEDS: HumaLOG INSULIN (NovoLOG) PER UNIT SC SCH ×2 (08:27→13:14)
[2020-11-27] MEDS: FERROUS SULFATE 325MG TAB PO SCH (08:30)
[2020-11-27] MEDS: CETIRIZINE (ZyrTEC) 10 MG TAB PO SCH (08:30)
[2020-11-27] MEDS ORDERED: ISOVUE-370 76% 100ML VIAL As Ordered ONE (08:45)
[2020-11-27] MEDS ORDERED: LEVOTHYROXINE 25MCG TABLET (0.025MG) PO SCH (09:00)
[2020-11-27] MEDS: GASTROGRAFIN SOLUTION 30ML PO SCH ×2 (09:12→09:48)
[2020-11-27 10:00] VITALS: BP 115/81
--- NOTE | 2020-11-27 10:56 | REP ---
INDICATION: acute pancreatitis. COMPARISON: 11/14/2020 TECHNIQUE: Axial contrast-enhanced images from the lung bases to the pubic symphysis using oral and 100 cc Isovue 370 intravenous contrast material. Coronal and sagittal reformations obtained. This CT examination was performed using the following dose reduction techniques: Automated exposure control, adjustment of mA and/or kv according to the patient's size, and the use of iterative reconstruction technique. FINDINGS: Liver, spleen, pancreas, bilateral adrenal glands and kidneys are normal. Patient is again noted to be status post cholecystectomy. No peripancreatic inflammatory stranding cyst or mass lesion noted. The enteric system including stomach, small, and large bowel appears normal. No evidence for obstruction or acute inflammatory process. Pelvis demonstrates normal bladder and age-appropriate uterus/adnexa. No ascites. No free air. No intraperitoneal or retroperitoneal adenopathy. Abdominal aorta and vasculature appear normal. Musculoskeletal structures are intact and without acute osseous abnormality. IMPRESSION: No acute abdominopelvic pathology appreciated. <Electronically signed by Isidoro Jose > 11/27/20 [id number]
[2020-11-27] MEDS ORDERED: METOCLOPRAMIDE 10 MG TAB PO PRN (13:10)
[2020-11-27] MEDS ORDERED: DOCUSATE SODIUM 100MG CAPSULE PO PRN (13:10)
[2020-11-27] MEDS ORDERED: CYCLOBENZAPRINE 10MG TABLET PO PRN (13:10)
[2020-11-27 14:00] VITALS: BP 131/86
--- NOTE | 2020-11-27 14:22 | IPNPDOC ---
Text Note Date of Service The patient was seen on 11/27/20. NOTE Subjective: Patient stated that her abdominal pain significantly subsided and she feels better today Objective: GENERAL APPEARANCE: Obese female HEENT: no scleral icterus, no JVD, EOMI CARDIOVASCULAR: S1S2 LUNGS: CTA ABDOMEN: soft & mildly tender w palpation in epigastric area MUSCULOSKELETAL: no cyanosis, no swelling INTEGUMENT: no generalized pallor NEUROLOGICAL: cranial nerve function from 2-12 intact, follows commands, speech not dysarthric Assessment and plan Patient is 50 years old female with past medical history of diabetes type 2, COPD, hypertension, fibromyalgia, chronic pancreatitis presented to hospital with abdominal pain. Patient was found to have elevated lipase level of 1179. 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 Follow-up with GI team in the outpatient settings Patient will have appointment in [facility] with GI team on January 12 Chronic COPD Secondary to alpha-1 antitrypsin deficiency Follow-up with carbide operator in the outpatient settings Not in acute exacerbation Type 2 diabetes/neuropathy Insulin sliding scale Diabetes diet Detemir twice daily Hypertension Blood pressure under control Continue home meds Obstructive sleep apnea CPAP nightly History of PE continue oral targeted anticoagulation with Eliquis Hypothyroidism Continue levothyroxine Migraine Continue home meds Anxiety, depression, PTSD, Insomnia: Continue home medications VS,Fishbone, I+O VS, Fishbone, I+O Laboratory Tests 11/26/20 16:00 11/27/20 05:36 Vital Signs Date Time Temp Pulse Resp B/P (MAP) Pulse Ox O2 Delivery O2 Flow Rate FiO2 11/27/20 10:00 97.0 81 18 115/81 (92) 99 Room Air I&O- Last 24 Hours up to 6 AM 11/27/20 05:59 Intake Total 99 ml Balance 99 ml GUSTAVO PAREDES DO Nov 27, 2020 14:22
[2020-11-27] MEDS: VENLAFAXINE **XR** 75MG CAPSULE PO SCH (15:57)
[2020-11-27] MEDS: NORCO, ANEXSIA 5/325MG TABLET (HYDROcodone/ACETAMINOPHEN) PO PRN (15:57)
[2020-11-27] MEDS: ONDANSETRON 4MG/2ML VIAL IV PRN (15:57)
[2020-11-27] MEDS: HumuLIN R (REGULAR) INSULIN (NovoLIN R) **100U/ML** PER UNIT SC SCH ×2 (17:24→21:00)
[2020-11-27] MEDS: LEVEMIR (INSULIN DETEMIR) 1 UNITS/0.01ML SC SCH (21:50)
[2020-11-27 22:00] VITALS: BP 128/77
[2020-11-27] MEDS ORDERED: SUMAtriptan SUCCINATE 25 MG TAB PO PRN (23:25)
[2020-11-28 00:10] VITALS: BP 127/77
[2020-11-28 02:00] VITALS: BP 143/88
[2020-11-28] MEDS: LEVOTHYROXINE 25MCG TABLET (0.025MG) PO SCH (05:39)
[2020-11-28] MEDS: NORCO, ANEXSIA 5/325MG TABLET (HYDROcodone/ACETAMINOPHEN) PO PRN ×3 (05:42→21:15)
[2020-11-28 06:00] VITALS: BP 128/71
[2020-11-28 06:24] LABS: BASO # 0.1 10^3/uL (0.0-0.2); BASO % 0.9 % (0.0-1.0); EOS # 0.7 10^3/uL (0.0-0.5); EOS % 8.1 % (0.0-3.0); HEMATOCRIT 37.9 % (36.0-47.0); HEMOGLOBIN 12.2 g/dl (12.0-15.5); LYMPH # 3.1 10^3/uL (1.5-5.0); LYMPH % 34.4 % (24.0-44.0); MEAN CORPUSCULAR HEMOGLOBIN 32.9 pg (27.0-33.0); MEAN CORPUSCULAR HGB CONC 32.2 g/dl (32.0-36.5); MEAN CORPUSCULAR VOLUME 102.2 fl (80.0-96.0); MONO # 0.9 10^3/uL (0.0-0.8); MONO % 9.5 % (2.0-8.0); NEUTROPHILS # 4.3 10^3/uL (1.5-8.5); NEUTROPHILS % 46.8 % (36.0-66.0); PLATELET COUNT, AUTOMATED 262 10^3/uL (150-450); RED BLOOD COUNT 3.71 10^6/uL (4.00-5.40); WHITE BLOOD COUNT 9.1 10^3/uL (4.0-10.0)
[2020-11-28 06:54] LABS: BLOOD UREA NITROGEN 6 MG/DL (7-18); CARBON DIOXIDE LEVEL 25 MEQ/L (21-32); CHLORIDE LEVEL 110 MEQ/L (98-107); CREATININE FOR GFR 0.52 MG/DL (0.55-1.30); GLOMERULAR FILTRATION RATE > 60.0 (>58); GLUCOSE, FASTING 99 MG/DL (70-100); POTASSIUM SERUM 3.7 MEQ/L (3.5-5.1); SODIUM LEVEL 142 MEQ/L (136-145)
[2020-11-28 06:55] LABS: ALBUMIN 3.1 GM/DL (3.2-5.2); ALT/SGPT 120 U/L (12-78); BILIRUBIN,TOTAL 0.3 MG/DL (0.2-1.0); CALCIUM LEVEL 9.1 MG/DL (8.5-10.1); CHOLESTEROL LEVEL 195 MG/DL (<200); CHOLESTEROL RISK RATIO 5.571 (<5); HDL CHOLESTEROL 35 MG/DL (>40); LDL CHOLESTEROL 122 MG/DL (<100); LIPASE 125 U/L (73-393); NON-HDL-C 160 MG/DL; TOTAL PROTEIN 6.5 GM/DL (6.4-8.2); TRIGLYCERIDES LEVEL 188 MG/DL (<150)
[2020-11-28] MEDS: HumuLIN R (REGULAR) INSULIN (NovoLIN R) **100U/ML** PER UNIT SC SCH ×4 (07:21→21:00)
[2020-11-28] MEDS: busPIRone 10 MG TAB PO SCH ×2 (08:45→21:16)
[2020-11-28] MEDS: GABAPENTIN 300 MG CAP PO SCH ×3 (08:45→21:15)
[2020-11-28] MEDS: CETIRIZINE (ZyrTEC) 10 MG TAB PO SCH (08:45)
[2020-11-28] MEDS: TOPIRAMATE (TopAMAX) 25 MG TAB PO SCH ×2 (08:45→21:16)
[2020-11-28] MEDS: APIXABAN 5 MG TAB (ELIQUIS) PO SCH ×2 (08:45→21:15)
[2020-11-28] MEDS: PANTOPRAZOLE 40MG TAB (PROTONIX) PO SCH ×2 (08:45→21:15)
[2020-11-28] MEDS: tiZANidine 4 MG TAB PO SCH ×3 (08:45→21:15)
[2020-11-28] MEDS: VENLAFAXINE **XR** 75MG CAPSULE PO SCH (08:45)
[2020-11-28] MEDS: FERROUS SULFATE 325MG TAB PO SCH (08:45)
[2020-11-28] MEDS: LEVEMIR (INSULIN DETEMIR) 1 UNITS/0.01ML SC SCH ×2 (08:47→21:14)
[2020-11-28 14:00] VITALS: BP 145/70
--- NOTE | 2020-11-28 14:38 | IPNPDOC ---
Text Note Date of Service The patient was seen on 11/28/20. NOTE Subjective: Patient stated that her abdominal pain significantly subsided how ever after regular diet patient developed abdominal discomfort Objective: GENERAL APPEARANCE: Obese female HEENT: no scleral icterus, no JVD, EOMI CARDIOVASCULAR: S1S2 LUNGS: CTA ABDOMEN: soft & mildly tender w palpation in epigastric area MUSCULOSKELETAL: no cyanosis, no swelling INTEGUMENT: no generalized pallor NEUROLOGICAL: cranial nerve function from 2-12 intact, follows commands, speech not dysarthric Assessment and plan Patient is 50 years old female with past medical history of diabetes type 2, COPD, hypertension, fibromyalgia, chronic pancreatitis presented to hospital with abdominal pain. Patient was found to have elevated lipase level of 1179. 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 Follow-up with GI team in the outpatient settings Patient will have appointment in [facility] with GI team on January 12 Chronic COPD Secondary to alpha-1 antitrypsin deficiency Follow-up with yoker machine operator in the outpatient settings Not in acute exacerbation Type 2 diabetes/neuropathy Poorly controlled diabetes with HbA1c 9 Insulin sliding scale Diabetes diet Detemir twice daily Hypertension Blood pressure under control Continue home meds Obstructive sleep apnea CPAP nightly History of PE continue oral targeted anticoagulation with Eliquis Hypothyroidism Continue levothyroxine Migraine Continue home meds Anxiety, depression, PTSD, Insomnia: Continue home medications VS,Fishbone, I+O VS, Fishbone, I+O Laboratory Tests 11/28/20 05:43 Vital Signs Date Time Temp Pulse Resp B/P (MAP) Pulse Ox O2 Delivery O2 Flow Rate FiO2 11/28/20 13:55 16 11/28/20 08:45 138/82 11/28/20 06:00 97.5 69 99 Room Air I&O- Last 24 Hours up to 6 AM 11/28/20 06:00 Intake Total 3640 ml Output Total 700 ml Balance 2940 ml GUSTAVO PAREDES DO Nov 28, 2020 14:38
[2020-11-28 18:00] VITALS: BP 111/71
--- NOTE | 2020-11-28 18:14 | ECGEPIP ---
[facility] Test Date: 2020-11-27 Pat Name: PATY CRYSTAL Department: Room: [place] [address] Gender: Female [employer]: : 1970 Requested By: CAREY [place] Order Number: [id number] Reading MD: Dameon Mendez Measurements Intervals [place] Rate: 54 P: 25 MD: 196 QRS: -8 QRSD: 98 T: 22 QT: 422 QTc: 400 Interpretive Statements Sinus bradycardia with sinus arrhythmia Minimal voltage criteria for LVH, may be normal variant Anteroseptal infarct , age undetermined Compared to 11/26/20 HR is much slower otherwise minimal change Electronically Signed on 11-28-2020 18:14:04 EDT by Dameon Mendez
[2020-11-28] MEDS: MONTELUKAST 10 MG TAB PO SCH (21:15)
[2020-11-28] MEDS: ONDANSETRON 4MG/2ML VIAL IV PRN (21:17)
[2020-11-28 22:00] VITALS: BP_SYST 119; BP_DIAS 47; BP_DIAS 77
[2020-11-29 02:00] VITALS: BP 120/70
[2020-11-29] MEDS: LEVOTHYROXINE 25MCG TABLET (0.025MG) PO SCH (05:48)
[2020-11-29 05:49] LABS: BASO # 0.1 10^3/uL (0.0-0.2); BASO % 0.6 % (0.0-1.0); EOS # 0.7 10^3/uL (0.0-0.5); EOS % 6.1 % (0.0-3.0); HEMATOCRIT 38.4 % (36.0-47.0); HEMOGLOBIN 12.6 g/dl (12.0-15.5); LYMPH # 4.3 10^3/uL (1.5-5.0); LYMPH % 35.8 % (24.0-44.0); MEAN CORPUSCULAR HGB CONC 32.8 g/dl (32.0-36.5); MEAN CORPUSCULAR VOLUME 100.5 fl (80.0-96.0); MONO # 1.1 10^3/uL (0.0-0.8); MONO % 9.2 % (2.0-8.0); NEUTROPHILS # 5.7 10^3/uL (1.5-8.5); NEUTROPHILS % 47.7 % (36.0-66.0); PLATELET COUNT, AUTOMATED 284 10^3/uL (150-450); RED BLOOD COUNT 3.82 10^6/uL (4.00-5.40)
[2020-11-29 06:00] VITALS: BP 120/60
[2020-11-29 06:24] LABS: ALBUMIN 3.4 GM/DL (3.2-5.2); ALT/SGPT 106 U/L (12-78); BILIRUBIN,TOTAL 0.3 MG/DL (0.2-1.0); BLOOD UREA NITROGEN 7 MG/DL (7-18); CALCIUM LEVEL 9.4 MG/DL (8.5-10.1); CARBON DIOXIDE LEVEL 26 MEQ/L (21-32); CHLORIDE LEVEL 111 MEQ/L (98-107); CREATININE FOR GFR 0.57 MG/DL (0.55-1.30); GLOMERULAR FILTRATION RATE > 60.0 (>58); GLUCOSE, FASTING 70 MG/DL (70-100); LIPASE 104 U/L (73-393); POTASSIUM SERUM 3.1 MEQ/L (3.5-5.1); SODIUM LEVEL 145 MEQ/L (136-145); TOTAL PROTEIN 6.9 GM/DL (6.4-8.2)
[2020-11-29] MEDS: HumuLIN R (REGULAR) INSULIN (NovoLIN R) **100U/ML** PER UNIT SC SCH (06:50)
[2020-11-29] MEDS ORDERED: POTASSIUM CHLORIDE 10MEQ SR TABLET PO ONE (08:00)
[2020-11-29] MEDS: GABAPENTIN 300 MG CAP PO SCH (09:06)
[2020-11-29] MEDS: busPIRone 10 MG TAB PO SCH (09:06)
[2020-11-29 09:07] VITALS: BP 135/87
[2020-11-29] MEDS: APIXABAN 5 MG TAB (ELIQUIS) PO SCH (09:07)
[2020-11-29] MEDS: CETIRIZINE (ZyrTEC) 10 MG TAB PO SCH (09:07)
[2020-11-29] MEDS: FERROUS SULFATE 325MG TAB PO SCH (09:08)
[2020-11-29] MEDS: PANTOPRAZOLE 40MG TAB (PROTONIX) PO SCH (09:08)
[2020-11-29] MEDS: tiZANidine 4 MG TAB PO SCH (09:16)
[2020-11-29] MEDS: TOPIRAMATE (TopAMAX) 25 MG TAB PO SCH (09:16)
[2020-11-29] MEDS: VENLAFAXINE **XR** 75MG CAPSULE PO SCH (09:16)
[2020-11-29] MEDS: LEVEMIR (INSULIN DETEMIR) 1 UNITS/0.01ML SC SCH (09:17)
[2020-11-29 10:00] VITALS: BP 139/89
--- NOTE | 2020-11-29 16:10 | DS.PDOC ---
Discharge Summary General Date of Admission Nov 26, 2020 at 18:35 Date of Discharge 11/29/20 Discharge Summary PROCEDURES PERFORMED DURING STAY: [None]. ADMITTING DIAGNOSES: Acute on chronic pancreatitis Transaminitis Chronic COPD Type 2 diabetes/neuropathy Hypertension Obstructive sleep apnea History of PE Hypothyroidism Migraine Anxiety, depression, PTSD, Insomnia DISCHARGE DIAGNOSES: Acute on chronic pancreatitis Transaminitis Chronic COPD Type 2 diabetes/neuropathy Hypertension Obstructive sleep apnea History of PE Hypothyroidism Migraine Anxiety, depression, PTSD, Insomnia COMPLICATIONS/CHIEF COMPLAINT: Acute Pancreatitis. HISTORY OF PRESENT ILLNESS: Patient is 50 years old female with past medical history of diabetes type 2, COPD, hypertension, fibromyalgia, chronic pancreatitis presented to hospital with abdominal pain. Patient was found to have elevated lipase level of 1179. 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 ALLERGIES: Please see below. PHYSICAL EXAMINATION ON DISCHARGE: VITAL SIGNS: Please see below. GENERAL APPEARANCE: Obese female HEENT: no scleral icterus, no JVD, EOMI CARDIOVASCULAR: S1S2 LUNGS: CTA ABDOMEN: soft & mildly tender w palpation in epigastric area MUSCULOSKELETAL: no cyanosis, no swelling INTEGUMENT: no generalized pallor NEUROLOGICAL: cranial nerve function from 2-12 intact, follows commands, speech not dysarthric LABORATORY DATA: Please see below. PROGNOSIS: Fair ACTIVITY: [As tolerated]. DIET: Full liquid diet for next 3 days DISPOSITION: 01 Home, Self-Care. ITEMS TO FOLLOWUP ON ON OUTPATIENT: Follow-up with PCP and GI team DISCHARGE CONDITION: [Stable]. TIME SPENT ON DISCHARGE:40minutes. Vital Signs/I&Os Vital Signs Date Time Temp Pulse Resp B/P (MAP) Pulse Ox O2 Delivery O2 Flow Rate FiO2 11/29/20 10:00 97.0 74 18 139/89 (106) 99 Room Air I&O- Last 24 Hours up to 6 AM 11/29/20 06:00 Intake Total 1820 ml Output Total 750 ml Balance 1070 ml Laboratory Data Labs 24H Laboratory Tests 2 11/28/20 16:29: Bedside Glucose (Misc Panel) 120H 11/28/20 20:12: Bedside Glucose (Misc Panel) 166H 11/29/20 05:34: Immature Granulocyte % (Auto) 0.6, Neutrophils (%) (Auto) 47.7, Lymphocytes (%) (Auto) 35.8, Monocytes (%) (Auto) 9.2H, Eosinophils (%) (Auto) 6.1H, Basophils (%) (Auto) 0.6, Neutrophils # (Auto) 5.7, Lymphocytes # (Auto) 4.3, Monocytes # (Auto) 1.1H, Eosinophils # (Auto) 0.7H, Basophils # (Auto) 0.1, Nucleated Red Blood Cells % (auto) 0.0, Anion Gap 8, Glomerular Filtration Rate > 60.0, Calcium Level 9.4, Total Bilirubin 0.3, Aspartate Amino Transf (AST/SGOT) 45H, Alanine Aminotransferase (ALT/SGPT) 106H, Alkaline Phosphatase 195H, Total Protein 6.9, Albumin 3.4, Albumin/Globulin Ratio 1.0L, Lipase 104 11/29/20 11:21: Bedside Glucose (Misc Panel) 216H CBC/BMP Laboratory Tests 11/29/20 05:34 FSBS Laboratory Tests Test 11/28/20 16:29 11/28/20 20:12 11/29/20 11:21 Range/Units Bedside Glucose (Misc Panel) 120 166 216 70-105 MG/DL Discharge Medications Scheduled Apixaban (Eliquis) 5 Mg Tablet, 5 MG PO BID, (Reported) Buspirone HCl (Buspirone HCl) 30 Mg Tablet, 30 MG PO BID, (Reported) Cetirizine HCl (Cetirizine HCl) 10 Mg Tab, 10 MG PO DAILY, (Reported) Ertugliflozin Pidolate (Steglatro) 5 Mg Tablet, 5 MG PO DAILY, (Reported) Ferrous Sulfate (Ferrous Sulfate) 325 Mg Tablet, 325 MG PO DAILY, (Reported) Gabapentin (Gabapentin) 600 Mg Tablet, 600 MG PO TID, (Reported) Insulin Glargine,Hum.rec.anlog (Basaglar Kwikpen U-100) 100 Unit/1 Ml Insuln.pen, 80 UNITS SC BID, (Reported) Insulin Glargine,Hum.rec.anlog (Semglee Pen) 100 Unit/Ml (3 Ml) Insuln.pen, 80 MG PO BID, (Reported) Insulin Human Regular (Humulin R) 1 Units/0.01 Ml Soln, 1 DOSE SC ACHS, (Reported) PER SLIDING SCALE Levothyroxine Sodium (Synthroid) 25 Mcg Tab, 25 MCG PO DAILY, (Reported) Lisinopril (Lisinopril) 10 Mg Tab, 10 MG PO DAILY, (Reported) Montelukast Sodium (Montelukast Sodium) 10 Mg Tablet, 10 MG PO QHS, (Reported) Pantoprazole Sodium (Protonix) 40 Mg Tab, 40 MG PO BID, (Reported) Prazosin HCl (Prazosin HCl) 2 Mg Capsule, 4 MG PO QHS, (Reported) Tizanidine HCl (Tizanidine HCl) 4 Mg Tab, 4 MG PO TID, (Reported) Topiramate (Topiramate) 50 Mg Tab, 50 MG PO BID, (Reported) Venlafaxine HCl (Venlafaxine HCl ER) 150 Mg Tab.er.24, 150 MG PO DAILY, (Reported) Scheduled PRN Albuterol Sulfate (Ventolin Hfa) 108 Mcg/Act Aer, 2 PUFFS INH Q4H PRN for SHORTNESS OF BREATH, (Reported) Cyclobenzaprine HCl (Cyclobenzaprine HCl) 10 Mg Tablet, 10 MG PO TID PRN for MUSCLE SPASMS, (Reported) Docusate Sodium (Colace) 100 Mg Cap, 100 MG PO DAILY PRN for CONSTIPATION, (Reported) Hydrocodone/Acetaminophen (Hydrocodone-Acetamin 5-325 mg) 1 Each Tablet, 1 TAB PO Q6H PRN for PAIN, (Reported) Ipratropium/Albuterol Sulfate (Iprat-Albut 0.5-3(2.5) mg/3 ml) 3 Ml Ampul.neb, 1 VIAL NEB Q4H PRN for SHORTNESS OF BREATH, (Reported) Metoclopramide HCl (Reglan) 10 Mg Tablet, 10 MG PO Q6H PRN for NAUSEA Polyethylene Glycol 3350 (Miralax) 119 Gm Powder, 17 GM PO DAILY PRN for CONSTIPATION dilute in 8 ounces of water or juice Polyvinyl Alcohol (Artificial Tears) 1.4 % Debora, 1 DROP OU BID PRN for DRY EYES, (Reported) Sumatriptan Succinate (Sumatriptan Succinate) 50 Mg Tab, 50 MG PO BID PRN for MIGRAINE, (Reported) Triamcinolone Acetonide (Triamcinolone Acetonide) 0.1 % Lot, 1 DOSE EXT BID PRN for RASH, (Reported) USES ON ELBOWS AND FINGERS Allergies Coded Allergies: meclizine (Verified Allergy, Severe, shock, 11/26/20) prednisone (Verified Allergy, Intermediate, hives, 11/26/20) PT STATES ONLY REACTION TO A ONLINE COMMUNICATIONS SPECIALIST THE TABLETS; LIQUID FORMULATIONS ARE FINE metformin (Verified Adverse Reaction, Intermediate, kidney problems, 11/26/20) GUSTAVO PAREDES DO Nov 29, 2020 16:10
== END 2020-11-29 11:44 | disposition home or self-care (01) | DRG 282 ==
LOC: M ED 14:01 → M ED INP 18:35 → M MSPAV 23:09
PROVIDERS: ADMIT Internal Medicine; ATTEND Internal Medicine
DX: K85.90 Acute pancreatitis without necrosis or infection, unspecified (principal); E11.42 Type 2 diabetes mellitus with diabetic polyneuropathy; I10 Essential (primary) hypertension; J44.9 Chronic obstructive pulmonary disease, unspecified; Z86.711 Personal history of pulmonary embolism; Z79.01 Long term (current) use of anticoagulants; E03.9 Hypothyroidism, unspecified; F41.9 Anxiety disorder, unspecified; F32.9 Major depressive disorder, single episode, unspecified; F43.10 Post-traumatic stress disorder, unspecified; G47.00 Insomnia, unspecified; E78.5 Hyperlipidemia, unspecified; G47.33 Obstructive sleep apnea (adult) (pediatric); G43.909 Migraine, unspecified, not intractable, without status migrainosus; K21.9 Gastro-esophageal reflux disease without esophagitis; M79.7 Fibromyalgia; Z87.891 Personal history of nicotine dependence; R74.01 Elevation of levels of liver transaminase levels; E66.9 Obesity, unspecified; Z20.822 Contact with and (suspected) exposure to COVID-19; Z79.899 Other long term (current) drug therapy; Z79.4 Long term (current) use of insulin; Z88.8 Allergy status to other drugs, medicaments and biological substances; Z68.34 Body mass index [BMI] 34.0-34.9, adult

== ENCOUNTER 2020-12-01 19:30 | Emergency (ER) | payer OTHER ==
[~2020-12-01] VITALS: Ht 160 cm; Wt 88.8 kg
[~2020-12-01 19:30] MED LIST changes: +INSU100I28 PO
[2020-12-02] MEDS ORDERED: methylPREDNISolone 125MG 2ML VIAL IM ONE (07:10)
[2020-12-02] MEDS ORDERED: AUGMENTIN 875 MG TAB PO ONE (07:10)
[2020-12-02] MEDS ORDERED: KETOROLAC 30 MG/ML 1ML VIAL IM ONE (07:10)
[2020-12-02] MEDS ORDERED: ONDANSETRON 4 MG TAB PO ONE (07:10)
[2020-12-02 08:39] VITALS: BP 141/69
== END 2020-12-02 08:45 | disposition home or self-care (01) ==
LOC: M ED 19:30
DX: J02.9 Acute pharyngitis, unspecified (principal); J01.90 Acute sinusitis, unspecified; E03.9 Hypothyroidism, unspecified; D64.9 Anemia, unspecified; N17.9 Acute kidney failure, unspecified; Z87.442 Personal history of urinary calculi; F43.10 Post-traumatic stress disorder, unspecified; E11.9 Type 2 diabetes mellitus without complications; Z79.4 Long term (current) use of insulin; Z79.01 Long term (current) use of anticoagulants; Z79.899 Other long term (current) drug therapy; Z88.8 Allergy status to other drugs, medicaments and biological substances
CPT/HCPCS: 87880; 96372; 99283; J1885; J2930

== ENCOUNTER → 2021-03-01 | Outpatient (REF) | payer OTHER ==
[~2021-03-01] MED LIST changes: -CYMB60CA3 PO; +CYMB60CA4 PO; +DOXY-443 PO; -DOXY1CAP62 PO
== END ==
LOC: M SFHCPLAZ 13:24
PROVIDERS: ATTEND Physician Assistant
DX: R05.9 Cough, unspecified (principal)

== ENCOUNTER → 2021-03-01 | Outpatient (REF) | payer OTHER | LOC: M SFHCPLAZ 13:05 | PROVIDERS: ATTEND Physician Assistant | DX: J02.9 Acute pharyngitis, unspecified (principal) ==

== ENCOUNTER 2021-03-29 12:32 | Emergency (ER) | payer OTHER ==
[~2021-03-29] VITALS: Ht 160 cm; Wt 88.6 kg
[~2021-03-29 12:32] MED LIST changes: -CEFD1CAP8 PO; +CEFD300C41 PO; -MONT10TA10 PO; +MONT10TA97 PO; +TIZA10TA PO; -TIZA4TAB4 PO
[2021-03-29] MEDS ORDERED: IPRATROPIUM 0.5MG/ALBUTEROL 2.5MG INH SOL UD 3ML (DUONEB) NEB ONE (16:30)
[2021-03-29 17:23] LABS: BASO # 0.1 10^3/uL (0.0-0.2); BASO % 0.4 % (0.0-1.0); HEMATOCRIT 43.5 % (36.0-47.0); HEMOGLOBIN 14.1 g/dl (12.0-15.5); LYMPH # 2.4 10^3/uL (1.5-5.0); LYMPH % 18.4 % (24.0-44.0); MEAN CORPUSCULAR HEMOGLOBIN 32.4 pg (27.0-33.0); MEAN CORPUSCULAR HGB CONC 32.4 g/dl (32.0-36.5); MONO # 0.3 10^3/uL (0.0-0.8); MONO % 2.3 % (2.0-8.0); NEUTROPHILS # 9.9 10^3/uL (1.5-8.5); NEUTROPHILS % 77.7 % (36.0-66.0); PLATELET COUNT, AUTOMATED 334 10^3/uL (150-450); RED BLOOD COUNT 4.35 10^6/uL (4.00-5.40); WHITE BLOOD COUNT 12.8 10^3/uL (4.0-10.0)
[2021-03-29 18:37] LABS: RSV AMPLIFICATION NEGATIVE (NEGATIVE)
[2021-03-29 18:57] LABS: BLOOD UREA NITROGEN 20 MG/DL (7-18); CALCIUM LEVEL 10.3 MG/DL (8.5-10.1); CARBON DIOXIDE LEVEL 26 MEQ/L (21-32); CHLORIDE LEVEL 105 MEQ/L (98-107); CREATININE FOR GFR 0.81 MG/DL (0.55-1.30); GLOMERULAR FILTRATION RATE > 60.0 (>58); GLUCOSE, FASTING 203 MG/DL (70-100); POTASSIUM SERUM 3.7 MEQ/L (3.5-5.1); SODIUM LEVEL 138 MEQ/L (136-145)
[2021-03-29 19:45] VITALS: BP 154/94
== END 2021-03-29 20:29 | disposition home or self-care (01) ==
LOC: M ED 12:32
DX: R06.02 Shortness of breath (principal); E11.9 Type 2 diabetes mellitus without complications; J45.909 Unspecified asthma, uncomplicated; J44.9 Chronic obstructive pulmonary disease, unspecified; Z79.4 Long term (current) use of insulin; Z79.82 Long term (current) use of aspirin; Z79.899 Other long term (current) drug therapy; Z88.7 Allergy status to serum and vaccine; Z88.8 Allergy status to other drugs, medicaments and biological substances

== ENCOUNTER 2021-04-05 13:26 | Outpatient (RCR) | payer OTHER | END 2021-04-16 | LOC: M PT 13:26 | PROVIDERS: ATTEND Physician Assistant | DX: S62.024D Nondisplaced fracture of middle third of navicular [scaphoid] bone of right wrist, subsequent encounter for fracture with routine healing (principal); M65.4 Radial styloid tenosynovitis [de Quervain] ==

== ENCOUNTER 2021-04-26 13:00 | Outpatient (RCR) | payer OTHER ==
[2021-05-05] MEDS ORDERED: CEPH500C PO (14:20)
[2021-05-06] MEDS ORDERED: PRED5SOL10 PO (21:10)
== END 2021-05-14 ==
LOC: M PT 13:00
PROVIDERS: ATTEND Physician Assistant
DX: S62.024D Nondisplaced fracture of middle third of navicular [scaphoid] bone of right wrist, subsequent encounter for fracture with routine healing (principal); M65.4 Radial styloid tenosynovitis [de Quervain]

== ENCOUNTER 2021-05-05 12:18 | Emergency (ER) | payer OTHER ==
[~2021-05-05] VITALS: Ht 160 cm; Wt 85.0 kg
[2021-05-05 12:19] VITALS: BP 155/89
[2021-05-05] MEDS ORDERED: CEPHALEXIN 500 MG CAP PO ONE (14:05)
[2021-05-05] MEDS ORDERED: CEPH500C PO (14:20)
[2021-05-06] MEDS ORDERED: PRED5SOL10 PO (21:10)
== END 2021-05-05 14:28 | disposition home or self-care (01) ==
LOC: M ED 12:18
DX: R22.0 Localized swelling, mass and lump, head (principal); H05.222 Edema of left orbit; Z88.8 Allergy status to other drugs, medicaments and biological substances; Z79.899 Other long term (current) drug therapy

== ENCOUNTER 2021-05-06 15:53 | Emergency (ER) | payer OTHER ==
[~2021-05-06] VITALS: Ht 160 cm; Wt 85.0 kg
[~2021-05-06 15:53] MED LIST changes: +CEPH500C PO
[2021-05-06] MEDS ORDERED: AMPICILLIN SOD/SULBACTAM SOD 3 GM in D5W MINI-BAG PLUS 100 ML IV ONE (16:40)
[2021-05-06] MEDS ORDERED: NS 1,000 ML IV ONE (16:40)
[2021-05-06] MEDS ORDERED: dexameTHASONE 20MG/5ML VIAL (J1100 PER 1MG) IV ONE (16:40)
[2021-05-06 17:59] LABS: BASO # 0.1 10^3/uL (0.0-0.2); BASO % 0.6 % (0.0-1.0); EOS # 0.1 10^3/uL (0.0-0.5); EOS % 1.3 % (0.0-3.0); HEMATOCRIT 46.9 % (36.0-47.0); HEMOGLOBIN 15.2 g/dl (12.0-15.5); LYMPH # 2.6 10^3/uL (1.5-5.0); LYMPH % 28.1 % (24.0-44.0); MEAN CORPUSCULAR HEMOGLOBIN 32.1 pg (27.0-33.0); MEAN CORPUSCULAR HGB CONC 32.4 g/dl (32.0-36.5); MEAN CORPUSCULAR VOLUME 99.2 fl (80.0-96.0); MONO # 0.7 10^3/uL (0.0-0.8); MONO % 7.8 % (2.0-8.0); NEUTROPHILS # 5.8 10^3/uL (1.5-8.5); NEUTROPHILS % 61.6 % (36.0-66.0); PLATELET COUNT, AUTOMATED 301 10^3/uL (150-450); RED BLOOD COUNT 4.73 10^6/uL (4.00-5.40); WHITE BLOOD COUNT 9.4 10^3/uL (4.0-10.0)
[2021-05-06 18:25] LABS: ERYTHROCYTE SEDIMENTATION RATE 9 mm/hr (0-20)
[2021-05-06 18:38] LABS: ALBUMIN 4.4 GM/DL (3.2-5.2); ALT/SGPT 75 U/L (12-78); BILIRUBIN,DIRECT < 0.1 MG/DL (0.0-0.2); BILIRUBIN,TOTAL 0.4 MG/DL (0.2-1.0); C REACTIVE PROTEIN QUANTITATIV 0.99 MG/DL (0.00-0.30); TOTAL PROTEIN 8.7 GM/DL (6.4-8.2)
[2021-05-06] MEDS ORDERED: ISOVUE-370 76% 100ML VIAL As Ordered ONE (19:24)
[2021-05-06] MEDS ORDERED: PRED5SOL10 PO (21:10)
[2021-05-06 21:24] VITALS: BP 180/70
== END 2021-05-06 21:25 | disposition home or self-care (01) ==
LOC: M ED 15:53
DX: R22.0 Localized swelling, mass and lump, head (principal); I50.9 Heart failure, unspecified; E11.9 Type 2 diabetes mellitus without complications; I10 Essential (primary) hypertension; E78.5 Hyperlipidemia, unspecified; Z86.718 Personal history of other venous thrombosis and embolism; J45.909 Unspecified asthma, uncomplicated; E03.9 Hypothyroidism, unspecified; M54.9 Dorsalgia, unspecified; F41.9 Anxiety disorder, unspecified; F32.9 Major depressive disorder, single episode, unspecified; F43.10 Post-traumatic stress disorder, unspecified; G43.909 Migraine, unspecified, not intractable, without status migrainosus; G62.9 Polyneuropathy, unspecified; Z79.4 Long term (current) use of insulin; Z79.899 Other long term (current) drug therapy; Z88.7 Allergy status to serum and vaccine; Z88.8 Allergy status to other drugs, medicaments and biological substances
CPT/HCPCS: 70487; 80047; 80076; 83605; 85025; 85652; 86140; 87804; 96361; 96374; 96375; 99283; J1100; Q9967

== ENCOUNTER → 2021-06-11 | Outpatient (CLI) | payer OTHER ==
[2021-06-11 13:28] LABS: HEPATITIS B SURFACE ANTIBODY NEGATIVE (POSITIVE); IMMUNOGLOBULIN G 929 MG/DL (681-1648); TOTAL 25(OH) VITAMIN D 16.7 NG/ML (30.0-100.0)
[2021-06-11 13:38] LABS: HEPATITIS B SURFACE ANTIGEN NEGATIVE (NEGATIVE)
== END ==
LOC: M LAB 11:22
PROVIDERS: ATTEND Physician Assistant Medical
DX: K74.3 Primary biliary cirrhosis (principal)

== ENCOUNTER 2021-07-03 10:02 | Emergency (ER) | payer OTHER ==
[~2021-07-03] VITALS: Ht 160 cm; Wt 84.1 kg
[2021-07-03 13:40] VITALS: BP 160/96
== END 2021-07-03 13:43 | disposition home or self-care (01) ==
LOC: M ED 10:02
DX: S83.91XA Sprain of unspecified site of right knee, initial encounter (principal); S93.401A Sprain of unspecified ligament of right ankle, initial encounter; W10.9XXA Fall (on) (from) unspecified stairs and steps, initial encounter; Y92.099 Unspecified place in other non-institutional residence as the place of occurrence of the external cause; Y93.9 Activity, unspecified; Y99.9 Unspecified external cause status; I10 Essential (primary) hypertension; I50.9 Heart failure, unspecified; Z86.718 Personal history of other venous thrombosis and embolism; J45.909 Unspecified asthma, uncomplicated; Z87.891 Personal history of nicotine dependence; Z87.01 Personal history of pneumonia (recurrent); Z86.711 Personal history of pulmonary embolism; J44.9 Chronic obstructive pulmonary disease, unspecified; G47.30 Sleep apnea, unspecified; K21.9 Gastro-esophageal reflux disease without esophagitis; K76.0 Fatty (change of) liver, not elsewhere classified; K74.60 Unspecified cirrhosis of liver; E11.9 Type 2 diabetes mellitus without complications; E03.9 Hypothyroidism, unspecified; D64.9 Anemia, unspecified; F41.9 Anxiety disorder, unspecified; F32.9 Major depressive disorder, single episode, unspecified; F43.10 Post-traumatic stress disorder, unspecified; Z79.4 Long term (current) use of insulin; Z79.899 Other long term (current) drug therapy; Z88.7 Allergy status to serum and vaccine; Z88.8 Allergy status to other drugs, medicaments and biological substances

== ENCOUNTER → 2021-08-01 | Outpatient (CLI) | payer OTHER | LOC: M WHC 13:26 | PROVIDERS: ATTEND Family Medicine | DX: K74.3 Primary biliary cirrhosis (principal); Z13.820 Encounter for screening for osteoporosis ==

== ENCOUNTER 2021-09-12 16:05 | Emergency (ER) | payer OTHER ==
[~2021-09-12] VITALS: Ht 165.1 cm; Wt 83.2 kg
[2021-09-12] MEDS ORDERED: OXYC-517 (16:22)
[2021-09-12 17:27] LABS: BASO # 0.1 10^3/uL (0.0-0.2); BASO % 0.6 % (0.0-1.0); EOS # 0.3 10^3/uL (0.0-0.5); EOS % 3.1 % (0.0-3.0); HEMATOCRIT 43.7 % (36.0-47.0); HEMOGLOBIN 14.4 g/dl (12.0-15.5); LYMPH # 3.2 10^3/uL (1.5-5.0); LYMPH % 37.8 % (24.0-44.0); MEAN CORPUSCULAR HEMOGLOBIN 33.5 pg (27.0-33.0); MEAN CORPUSCULAR VOLUME 101.6 fl (80.0-96.0); MONO # 0.9 10^3/uL (0.0-0.8); MONO % 10.5 % (2.0-8.0); NEUTROPHILS % 47.4 % (36.0-66.0); PLATELET COUNT, AUTOMATED 252 10^3/uL (150-450); WHITE BLOOD COUNT 8.4 10^3/uL (4.0-10.0)
[2021-09-12 17:52] LABS: ALBUMIN 3.5 GM/DL (3.2-5.2); ALT/SGPT 126 U/L (12-78); BILIRUBIN,DIRECT < 0.1 MG/DL (0.0-0.2); BILIRUBIN,TOTAL 0.2 MG/DL (0.2-1.0); LIPASE 242 U/L (73-393); TOTAL PROTEIN 7.2 GM/DL (6.4-8.2)
[2021-09-12] MEDS ORDERED: NS 1,000 ML IV ONE (19:40)
[2021-09-12] MEDS ORDERED: ONDANSETRON 4MG 2ML VIAL IM ONE (21:15)
[2021-09-12] MEDS ORDERED: PERCOCET 5MG/325MG TAB PO ONE (21:15)
[2021-09-12] MEDS ORDERED: ONDANSETRON 4MG 2ML VIAL IV ONE (22:00)
[2021-09-12 22:26] VITALS: BP 137/74
[2021-09-12] MEDS ORDERED: ONDA4TAB6 PO (22:26)
== END 2021-09-12 23:23 | disposition home or self-care (01) ==
LOC: M ED 16:05
DX: N83.202 Unspecified ovarian cyst, left side (principal); R11.0 Nausea; I50.9 Heart failure, unspecified; I10 Essential (primary) hypertension; D64.9 Anemia, unspecified; J44.9 Chronic obstructive pulmonary disease, unspecified; Z87.01 Personal history of pneumonia (recurrent); Z86.718 Personal history of other venous thrombosis and embolism; K58.9 Irritable bowel syndrome, unspecified; K76.0 Fatty (change of) liver, not elsewhere classified; E78.5 Hyperlipidemia, unspecified; G43.909 Migraine, unspecified, not intractable, without status migrainosus; Z87.442 Personal history of urinary calculi; Z87.891 Personal history of nicotine dependence; Z79.4 Long term (current) use of insulin; Z79.01 Long term (current) use of anticoagulants; Z79.890 Hormone replacement therapy; Z79.899 Other long term (current) drug therapy; Z88.7 Allergy status to serum and vaccine; Z88.8 Allergy status to other drugs, medicaments and biological substances
CPT/HCPCS: 76856; 80047; 80076; 81001; 83690; 84702; 85025; 96361; 96374; 99284; J2405

== ENCOUNTER 2021-09-14 14:57 | Emergency (ER) | payer OTHER ==
[~2021-09-14] VITALS: Ht 160 cm; Wt 83.2 kg
[~2021-09-14 14:57] MED LIST changes: +OXYC-517
[2021-09-14 16:48] LABS: BASO # 0.1 10^3/uL (0.0-0.2); BASO % 0.6 % (0.0-1.0); EOS # 0.3 10^3/uL (0.0-0.5); EOS % 2.8 % (0.0-3.0); HEMATOCRIT 45.5 % (36.0-47.0); HEMOGLOBIN 14.6 g/dl (12.0-15.5); LYMPH # 3.1 10^3/uL (1.5-5.0); LYMPH % 32.3 % (24.0-44.0); MEAN CORPUSCULAR HEMOGLOBIN 32.7 pg (27.0-33.0); MEAN CORPUSCULAR HGB CONC 32.1 g/dl (32.0-36.5); MEAN CORPUSCULAR VOLUME 101.8 fl (80.0-96.0); MONO # 0.8 10^3/uL (0.0-0.8); MONO % 8.1 % (2.0-8.0); NEUTROPHILS # 5.3 10^3/uL (1.5-8.5); NEUTROPHILS % 55.8 % (36.0-66.0); PLATELET COUNT, AUTOMATED 266 10^3/uL (150-450); RED BLOOD COUNT 4.47 10^6/uL (4.00-5.40); WHITE BLOOD COUNT 9.5 10^3/uL (4.0-10.0)
[2021-09-14 17:12] LABS: ALBUMIN 3.6 GM/DL (3.2-5.2); ALT/SGPT 103 U/L (12-78); BILIRUBIN,DIRECT 0.1 MG/DL (0.0-0.2); BILIRUBIN,TOTAL 0.2 MG/DL (0.2-1.0); BLOOD UREA NITROGEN 14 MG/DL (7-18); CALCIUM LEVEL 9.4 MG/DL (8.5-10.1); CARBON DIOXIDE LEVEL 28 MEQ/L (21-32); CHLORIDE LEVEL 108 MEQ/L (98-107); CREATININE FOR GFR 0.76 MG/DL (0.55-1.30); GLOMERULAR FILTRATION RATE > 60.0 (>58); GLUCOSE, FASTING 188 MG/DL (70-100); HCG, SERUM QUALITATIVE NEGATIVE (NEGATIVE); LIPASE 220 U/L (73-393); POTASSIUM SERUM 3.9 MEQ/L (3.5-5.1); SODIUM LEVEL 140 MEQ/L (136-145)
[2021-09-14] MEDS ORDERED: ISOVUE-370 76% 100ML VIAL As Ordered ONE (17:14)
[2021-09-14] MEDS ORDERED: NS 500 ML IV ONE (17:15)
[2021-09-14] MEDS ORDERED: MORPHINE 4 MG/ML 1ML VIAL/SYRINGE IV ONE (17:15)
[2021-09-14] MEDS ORDERED: ONDANSETRON 4MG 2ML VIAL IV ONE (17:15)
[2021-09-14 19:07] VITALS: BP 176/86
== END 2021-09-14 19:09 | disposition home or self-care (01) ==
LOC: M ED 14:57
DX: N83.292 Other ovarian cyst, left side (principal); E11.40 Type 2 diabetes mellitus with diabetic neuropathy, unspecified; I10 Essential (primary) hypertension; G47.33 Obstructive sleep apnea (adult) (pediatric); Z86.711 Personal history of pulmonary embolism; M54.12 Radiculopathy, cervical region; Z79.4 Long term (current) use of insulin; Z79.01 Long term (current) use of anticoagulants; Z79.890 Hormone replacement therapy; Z79.899 Other long term (current) drug therapy; Z88.7 Allergy status to serum and vaccine; Z88.8 Allergy status to other drugs, medicaments and biological substances
CPT/HCPCS: 74177; 80048; 80076; 81001; 83690; 84703; 85025; 96361; 96374; 96375; 99284; J2270; J2405; Q9967

== ENCOUNTER → 2021-10-29 | Outpatient (CLI) | payer OTHER ==
[2021-10-29 13:26] LABS: BASO # 0.1 10^3/uL (0.0-0.2); BASO % 0.7 % (0.0-1.0); EOS # 0.2 10^3/uL (0.0-0.5); EOS % 1.5 % (0.0-3.0); HEMATOCRIT 45.7 % (36.0-47.0); HEMOGLOBIN 14.7 g/dl (12.0-15.5); LYMPH # 3.1 10^3/uL (1.5-5.0); LYMPH % 26.7 % (24.0-44.0); MEAN CORPUSCULAR HEMOGLOBIN 33.2 pg (27.0-33.0); MEAN CORPUSCULAR HGB CONC 32.2 g/dl (32.0-36.5); MEAN CORPUSCULAR VOLUME 103.2 fl (80.0-96.0); MONO # 0.7 10^3/uL (0.0-0.8); NEUTROPHILS # 7.5 10^3/uL (1.5-8.5); NEUTROPHILS % 64.7 % (36.0-66.0); PLATELET COUNT, AUTOMATED 296 10^3/uL (150-450); RED BLOOD COUNT 4.43 10^6/uL (4.00-5.40); WHITE BLOOD COUNT 11.5 10^3/uL (4.0-10.0)
[2021-10-29 14:21] LABS: ALBUMIN 4.1 GM/DL (3.2-5.2); ALT/SGPT 62 U/L (12-78); BILIRUBIN,TOTAL 0.4 MG/DL (0.2-1.0); BLOOD UREA NITROGEN 19 MG/DL (7-18); CALCIUM LEVEL 9.9 MG/DL (8.5-10.1); CARBON DIOXIDE LEVEL 24 MEQ/L (21-32); CHLORIDE LEVEL 101 MEQ/L (98-107); CREATININE FOR GFR 0.88 MG/DL (0.55-1.30); FREE T4 1.15 NG/DL (0.76-1.46); GLOMERULAR FILTRATION RATE > 60.0 (>58); GLUCOSE, FASTING 281 MG/DL (70-100); POTASSIUM SERUM 4.1 MEQ/L (3.5-5.1); SODIUM LEVEL 132 MEQ/L (136-145); TOTAL PROTEIN 8.2 GM/DL (6.4-8.2)
[2021-10-29 14:36] LABS: ERYTHROCYTE SEDIMENTATION RATE 28 mm/hr (0-20)
[2021-10-29 15:07] LABS: FOLATE 17.2 NG/ML; VITAMIN B12 LEVEL 1867 PG/ML
== END ==
LOC: M LAB 11:55
PROVIDERS: ATTEND Psychiatry & Neurology Neurology
DX: E07.9 Disorder of thyroid, unspecified (principal); E53.8 Deficiency of other specified B group vitamins; R41.3 Other amnesia; R41.0 Disorientation, unspecified

== ENCOUNTER → 2021-10-29 | Outpatient (CLI) | payer OTHER | LOC: M LAB 12:12 | PROVIDERS: ATTEND Internal Medicine Pulmonary Disease | DX: J45.50 Severe persistent asthma, uncomplicated (principal) ==

== ENCOUNTER 2021-10-30 14:03 | Emergency (ER) | payer OTHER ==
[~2021-10-30] VITALS: Ht 160 cm; Wt 85.5 kg
[2021-10-30 14:59] VITALS: O2SAT 98
[2021-10-30 15:40] LABS: RSV AMPLIFICATION NEGATIVE (NEGATIVE)
[2021-10-30] MEDS ORDERED: ISOVUE-370 76% 100ML VIAL As Ordered ONE (17:05)
[2021-10-30 18:00] VITALS: BP 158/98
== END 2021-10-30 18:36 | disposition home or self-care (01) ==
LOC: M ED 14:03
DX: R55 Syncope and collapse (principal); R79.1 Abnormal coagulation profile; E11.9 Type 2 diabetes mellitus without complications; I10 Essential (primary) hypertension; J45.909 Unspecified asthma, uncomplicated; G47.33 Obstructive sleep apnea (adult) (pediatric); Z86.711 Personal history of pulmonary embolism; Z79.01 Long term (current) use of anticoagulants; Z87.891 Personal history of nicotine dependence; E03.9 Hypothyroidism, unspecified; Z79.890 Hormone replacement therapy; Z79.4 Long term (current) use of insulin; Z79.899 Other long term (current) drug therapy; Z88.7 Allergy status to serum and vaccine; Z88.8 Allergy status to other drugs, medicaments and biological substances
CPT/HCPCS: 71275; 87631; 93005; 99284; Q9967

== ENCOUNTER → 2021-11-12 | Outpatient (CLI) | payer OTHER ==
[2021-11-12 13:28] LABS: C REACTIVE PROTEIN QUANTITATIV 0.84 MG/DL (0.00-0.30); RHEUMATOID FACTOR QUANT < 10.0 IU/ML (<15.0); URIC ACID 4.1 MG/DL (2.6-6.0)
[2021-11-12 21:36] LABS: HEMOGLOBIN A1c 8.8 %
== END ==
LOC: M LAB 12:16
PROVIDERS: ATTEND Family Medicine
DX: M25.50 Pain in unspecified joint (principal); E11.9 Type 2 diabetes mellitus without complications

== ENCOUNTER 2021-11-26 11:37 | Emergency (ER) | payer OTHER ==
[~2021-11-26] VITALS: Ht 160 cm; Wt 85.5 kg
[2021-11-26] MEDS ORDERED: LIDOCAINE 5% (LIDODERM) PATCH TD ONE (15:35)
[2021-11-26] MEDS ORDERED: ACETAMINOPHEN 500 MG TAB PO ONE (15:35)
[2021-11-26 16:23] VITALS: BP 141/75
[2021-11-26] MEDS ORDERED: **NOTE PATIENT COMMENT** MISC XX SCH (21:00)
== END 2021-11-26 17:14 | disposition home or self-care (01) ==
LOC: M ED 11:37
DX: M54.50 Low back pain, unspecified (principal); W18.11XA Fall from or off toilet without subsequent striking against object, initial encounter; Y92.099 Unspecified place in other non-institutional residence as the place of occurrence of the external cause; E11.9 Type 2 diabetes mellitus without complications; I10 Essential (primary) hypertension; E78.5 Hyperlipidemia, unspecified; Z87.891 Personal history of nicotine dependence; Z79.4 Long term (current) use of insulin; Z79.01 Long term (current) use of anticoagulants; Z79.890 Hormone replacement therapy; Z79.899 Other long term (current) drug therapy; Z88.7 Allergy status to serum and vaccine; Z88.8 Allergy status to other drugs, medicaments and biological substances

== ENCOUNTER → 2021-12-07 | Outpatient (CLI) | payer OTHER | LOC: M WHC 10:14 | PROVIDERS: ATTEND Nurse Practitioner Family | DX: Z87.42 Personal history of other diseases of the female genital tract (principal) ==

== ENCOUNTER 2022-01-07 13:35 | Emergency (ER) | payer OTHER ==
[~2022-01-07] VITALS: Ht 162.6 cm; Wt 85.0 kg
[2022-01-07 13:36] VITALS: BP 106/73
[2022-01-07 21:02] LABS: BASO # 0.1 10^3/uL (0.0-0.2); BASO % 0.7 % (0.0-1.0); EOS # 0.2 10^3/uL (0.0-0.5); EOS % 2.3 % (0.0-3.0); HEMATOCRIT 43.3 % (36.0-47.0); HEMOGLOBIN 14.3 g/dl (12.0-15.5); LYMPH # 3.9 10^3/uL (1.5-5.0); LYMPH % 39.1 % (24.0-44.0); MEAN CORPUSCULAR HEMOGLOBIN 33.3 pg (27.0-33.0); MEAN CORPUSCULAR VOLUME 100.9 fl (80.0-96.0); MONO # 0.8 10^3/uL (0.0-0.8); MONO % 8.1 % (2.0-8.0); NEUTROPHILS # 4.9 10^3/uL (1.5-8.5); NEUTROPHILS % 49.3 % (36.0-66.0); PLATELET COUNT, AUTOMATED 287 10^3/uL (150-450); RED BLOOD COUNT 4.29 10^6/uL (4.00-5.40); WHITE BLOOD COUNT 9.9 10^3/uL (4.0-10.0)
[2022-01-07 21:45] LABS: FREE THYROXINE INDEX 2.9 % (1.3-4.8); THYROID STIMULATING HORMONE 0.829 uIU/ML (0.358-3.740); THYROXINE (T4) 9.8 UG/DL (4.5-12.0)
== END 2022-01-07 22:16 | disposition home or self-care (01) ==
LOC: M ED 13:35
DX: R20.2 Paresthesia of skin (principal); R51.9 Headache, unspecified; E11.9 Type 2 diabetes mellitus without complications; I11.0 Hypertensive heart disease with heart failure; E78.5 Hyperlipidemia, unspecified; J44.9 Chronic obstructive pulmonary disease, unspecified; K58.9 Irritable bowel syndrome, unspecified; Z86.73 Personal history of transient ischemic attack (TIA), and cerebral infarction without residual deficits; K74.60 Unspecified cirrhosis of liver; Z90.49 Acquired absence of other specified parts of digestive tract; Z90.89 Acquired absence of other organs; Z88.8 Allergy status to other drugs, medicaments and biological substances; Z88.7 Allergy status to serum and vaccine; Z79.4 Long term (current) use of insulin; Z79.51 Long term (current) use of inhaled steroids; Z79.01 Long term (current) use of anticoagulants; Z79.899 Other long term (current) drug therapy

== ENCOUNTER 2022-01-11 11:45 | Outpatient (RCR) | payer OTHER ==
[~2022-01-11 11:45] MED LIST changes: -DOXY-350 PO; +DOXY-444 PO; -OXYC-517; -TRIA2LOT EXT; +TRIA2LOT TOP
[2022-01-13] MEDS ORDERED: BENA25CA4 PO (16:19)
[2022-01-13] MEDS ORDERED: INSU100I34 SQ (16:19)
[2022-01-13] MEDS ORDERED: D32000CA PO (16:19)
[2022-01-13] MEDS ORDERED: URSO300C3 PO (16:19)
[2022-01-13] MEDS ORDERED: MIRA3350 PO (16:19)
[2022-01-13] MEDS ORDERED: AMIT10TA7 PO (16:19)
[2022-01-13] MEDS ORDERED: MIRT-10 PO (16:19)
[2022-01-13] MEDS ORDERED: SYMB16INH INH (16:19)
[2022-01-13] MEDS ORDERED: DICY10CA13 PO (16:19)
[2022-01-13] MEDS ORDERED: CYAN100049 PO (16:19)
[2022-01-13] MEDS ORDERED: FLON1SPR NARES (16:19)
[2022-01-13] MEDS ORDERED: INSUHUMDS SC (16:19)
[2022-01-13] MEDS ORDERED: ALBU6.7H6 INH (16:19)
[2022-01-13] MEDS ORDERED: SENN-83 PO (16:19)
[2022-01-13] MEDS ORDERED: ONDA-83 PO (16:19)
[2022-01-14] MEDS ORDERED: ASCO50TA PO (10:26)
== END 2022-01-14 ==
LOC: M PT 11:45
PROVIDERS: ATTEND Orthopaedic Surgery
DX: M54.50 Low back pain, unspecified (principal)

== ENCOUNTER 2022-01-13 10:58 | Inpatient (IN) | payer OTHER ==
[~2022-01-13] VITALS: Ht 160 cm; Wt 84.5 kg
[2022-01-13] MEDS ORDERED: ISOVUE-370 76% 100ML VIAL As Ordered ONE (11:23)
[2022-01-13 11:33] LABS: BASO # 0.1 10^3/uL (0.0-0.2); BASO % 0.7 % (0.0-1.0); EOS # 0.2 10^3/uL (0.0-0.5); EOS % 2.7 % (0.0-3.0); HEMATOCRIT 39.1 % (36.0-47.0); LYMPH # 3.5 10^3/uL (1.5-5.0); LYMPH % 41.4 % (24.0-44.0); MEAN CORPUSCULAR HEMOGLOBIN 33.9 pg (27.0-33.0); MEAN CORPUSCULAR HGB CONC 33.2 g/dl (32.0-36.5); MEAN CORPUSCULAR VOLUME 102.1 fl (80.0-96.0); MONO # 0.7 10^3/uL (0.0-0.8); MONO % 7.9 % (2.0-8.0); NEUTROPHILS # 3.9 10^3/uL (1.5-8.5); NEUTROPHILS % 46.8 % (36.0-66.0); PLATELET COUNT, AUTOMATED 226 10^3/uL (150-450); RED BLOOD COUNT 3.83 10^6/uL (4.00-5.40); WHITE BLOOD COUNT 8.4 10^3/uL (4.0-10.0)
[2022-01-13 12:10] LABS: RSV AMPLIFICATION NEGATIVE (NEGATIVE)
[2022-01-13 12:19] LABS: BLOOD UREA NITROGEN 15 MG/DL (7-18); CALCIUM LEVEL 9.1 MG/DL (8.5-10.1); CARBON DIOXIDE LEVEL 23 MEQ/L (21-32); CHLORIDE LEVEL 108 MEQ/L (98-107); CK-MB VALUE MASS < 1.0 NG/ML (<3.6); CPK CREATINE PHOSPHOKINASE 37 U/L (26-192); GLOMERULAR FILTRATION RATE > 60.0 (>58); GLUCOSE, FASTING 272 MG/DL (70-100); POTASSIUM SERUM 4.2 MEQ/L (3.5-5.1); SODIUM LEVEL 138 MEQ/L (136-145)
[2022-01-13] MEDS ORDERED: MIRT-10 PO (16:19)
[2022-01-13] MEDS ORDERED: AMIT10TA7 PO (16:19)
[2022-01-13] MEDS ORDERED: CYAN100049 PO (16:19)
[2022-01-13] MEDS ORDERED: MIRA3350 PO (16:19)
[2022-01-13] MEDS ORDERED: ALBU6.7H6 INH (16:19)
[2022-01-13] MEDS ORDERED: INSU100I34 SQ (16:19)
[2022-01-13] MEDS ORDERED: BENA25CA4 PO (16:19)
[2022-01-13] MEDS ORDERED: D32000CA PO (16:19)
[2022-01-13] MEDS ORDERED: DICY10CA13 PO (16:19)
[2022-01-13] MEDS ORDERED: ONDA-83 PO (16:19)
[2022-01-13] MEDS ORDERED: SYMB16INH INH (16:19)
[2022-01-13] MEDS ORDERED: URSO300C3 PO (16:19)
[2022-01-13] MEDS ORDERED: INSUHUMDS SC (16:19)
[2022-01-13] MEDS ORDERED: SENN-83 PO (16:19)
[2022-01-13] MEDS ORDERED: FLON1SPR NARES (16:19)
[2022-01-13] MEDS ORDERED: HOME MED LIST COMPLETE! XX SCH (16:35)
[2022-01-13] MEDS ORDERED: oxyCODONE 5MG TAB PO PRN (16:40)
[2022-01-13] MEDS ORDERED: ALBUTEROL 90 MCG/ACT 8GM HFA INHALER INH PRN (16:40)
[2022-01-13] MEDS ORDERED: SENNA 8.6 MG TAB (SENOKOT) PO PRN (16:40)
[2022-01-13] MEDS ORDERED: GLUCAGON INJ 1MG VIAL SC PRN (16:40)
[2022-01-13] MEDS ORDERED: ACETAMINOPHEN TAB 650MG DOSE (2X325MG) PO PRN (16:40)
[2022-01-13] MEDS ORDERED: DOCUSATE SODIUM 100MG CAPSULE PO PRN (16:40)
[2022-01-13] MEDS ORDERED: MIRALAX *UNIT DOSE* 17GM PACKET PO PRN (16:40)
[2022-01-13] MEDS ORDERED: diphenhydrAMINE 50MG CAP PO PRN (16:40)
[2022-01-13] MEDS ORDERED: DEXTROSE 50% 50 ML SYRINGE IV PRN (16:40)
[2022-01-13] MEDS ORDERED: SUMAtriptan SUCCINATE 25 MG TAB PO PRN (16:40)
[2022-01-13] MEDS ORDERED: ONDANSETRON 4MG TAB PO PRN (16:40)
[2022-01-13] MEDS ORDERED: GLUCOSE 4GM CHEW TABLET PO PRN (16:40)
[2022-01-13] MEDS ORDERED: IPRATROPIUM 0.5MG/ALBUTEROL 2.5MG INH SOL UD 3ML (DUONEB) NEB PRN (16:40)
[2022-01-13] MEDS ORDERED: POLYVINYL ALCOHOL OPHTH SOLN 15 ML(LIQUITEARS) OU PRN (16:40)
[2022-01-13] MEDS ORDERED: SUMAtriptan SUCCINATE 25 MG TAB PO ONE (17:15)
[2022-01-13] MEDS: INSULIN LISPRO (NovoLOG) PER UNIT SC SCH (18:22)
[2022-01-13] MEDS: ASPIRIN 81 MG CHEW TABLET PO SCH (18:27)
[2022-01-13] MEDS: DICYCLOMINE 10 MG CAP PO SCH (18:27)
[2022-01-13 18:53] LABS: CHOLESTEROL LEVEL 202 MG/DL (<200); CHOLESTEROL RISK RATIO 4.208 (<5); HDL CHOLESTEROL 48 MG/DL (>40); LDL CHOLESTEROL 123 MG/DL (<100); NON-HDL-C 154 MG/DL; TRIGLYCERIDES LEVEL 155 MG/DL (<150)
[2022-01-13 19:51] LABS: INR 0.91; PROTHROMBIN TIME 12.5 SECONDS (12.5-14.5)
[2022-01-13 19:52] LABS: PARTIAL THROMBOPLASTIN TIME 27.2 SECONDS (24.8-34.2)
[2022-01-13 20:24] LABS: HEMOGLOBIN A1c 9.6 %
[2022-01-13] MEDS: SYMBICORT 160/4.5MCG INHALER 6GM INH SCH (20:26)
[2022-01-13] MEDS ORDERED: AMITRIPTYLINE 10MG TABLET PO SCH (21:00)
[2022-01-13] MEDS ORDERED: MIRTAZAPINE 15 MG TAB PO SCH (21:00)
[2022-01-13] MEDS ORDERED: MONTELUKAST 10 MG TAB PO SCH (21:00)
[2022-01-13] MEDS ORDERED: ATORVASTATIN 20 MG TAB PO SCH (21:00)
[2022-01-13] MEDS ORDERED: ENOXAPARIN 40MG/0.4ML SYRINGE (J1650 PER 10MG) SC SCH (21:00)
[2022-01-13] MEDS ORDERED: INSULIN LISPRO (NovoLOG) PER UNIT SC SCH (21:00)
[2022-01-14] VITALS (13 sets, daily range): BP systolic 115–155; BP diastolic 66–90; O2SAT 97–99
[2022-01-14] MEDS: TOPIRAMATE (TopAMAX) 25 MG TAB PO SCH ×2 (01:59→09:09)
[2022-01-14] MEDS: busPIRone 10 MG TAB PO SCH ×2 (01:59→09:07)
[2022-01-14] MEDS: ursodioL 300MG CAP PO SCH ×2 (02:00→09:09)
[2022-01-14] MEDS: PANTOPRAZOLE 40MG TAB (PROTONIX) PO SCH ×2 (02:00→09:08)
[2022-01-14] MEDS: DICYCLOMINE 10 MG CAP PO SCH ×3 (02:11→12:18)
[2022-01-14] MEDS: GABAPENTIN 300 MG CAP PO SCH ×2 (02:11→09:08)
[2022-01-14] MEDS: tiZANidine 4 MG TAB PO SCH ×2 (02:12→09:08)
[2022-01-14] MEDS: LEVEMIR (INSULIN DETEMIR) 1 UNITS/0.01ML SC SCH ×2 (02:22→09:06)
[2022-01-14] MEDS ORDERED: LEVOTHYROXINE 25MCG TABLET (0.025MG) PO SCH (06:00)
[2022-01-14 06:10] LABS: HEMATOCRIT 41.7 % (36.0-47.0); HEMOGLOBIN 13.7 g/dl (12.0-15.5); MEAN CORPUSCULAR HEMOGLOBIN 33.7 pg (27.0-33.0); MEAN CORPUSCULAR HGB CONC 32.9 g/dl (32.0-36.5); MEAN CORPUSCULAR VOLUME 102.5 fl (80.0-96.0); PLATELET COUNT, AUTOMATED 226 10^3/uL (150-450); RED BLOOD COUNT 4.07 10^6/uL (4.00-5.40); WHITE BLOOD COUNT 8.9 10^3/uL (4.0-10.0)
[2022-01-14 07:20] LABS: ALBUMIN 3.7 GM/DL (3.2-5.2); ALT/SGPT 84 U/L (12-78); BILIRUBIN,TOTAL 0.5 MG/DL (0.2-1.0); BLOOD UREA NITROGEN 11 MG/DL (7-18); CALCIUM LEVEL 9.3 MG/DL (8.5-10.1); CARBON DIOXIDE LEVEL 22 MEQ/L (21-32); CHLORIDE LEVEL 109 MEQ/L (98-107); CREATININE FOR GFR 0.59 MG/DL (0.55-1.30); GLOMERULAR FILTRATION RATE > 60.0 (>58); GLUCOSE, FASTING 129 MG/DL (70-100); POTASSIUM SERUM 2.9 MEQ/L (3.5-5.1); SODIUM LEVEL 140 MEQ/L (136-145); TOTAL PROTEIN 7.5 GM/DL (6.4-8.2)
[2022-01-14] MEDS: SYMBICORT 160/4.5MCG INHALER 6GM INH SCH (07:30)
[2022-01-14] MEDS ORDERED: POTASSIUM CHLORIDE 10MEQ SR TABLET PO ONE ×2 (07:30→11:20)
[2022-01-14] MEDS ORDERED: FLUTICASONE PROP 0.05% NASAL SPRAY 16 GM (FLONASE) NARES SCH (09:00)
[2022-01-14] MEDS ORDERED: FERROUS SULFATE 325MG TAB PO SCH (09:00)
[2022-01-14] MEDS ORDERED: ASCORBIC ACID 500 MG TAB PO SCH (09:00)
[2022-01-14] MEDS ORDERED: CYANOCOBALAMIN 500 MCG TAB PO SCH (09:00)
[2022-01-14] MEDS: KCL 10MEQ/100ML SWI (KRUN) 10 MEQ in IV 1 EA IV SCH ×2 (09:00→09:07)
[2022-01-14] MEDS ORDERED: INFLUENZA QUADRIVALENT PF VACCINE 0.5ML SYRINGE IM.IMMUN ONE (09:00)
[2022-01-14] MEDS: INSULIN LISPRO (NovoLOG) PER UNIT SC SCH ×2 (09:07→12:19)
[2022-01-14] MEDS: ASPIRIN 81 MG CHEW TABLET PO SCH (09:07)
[2022-01-14] MEDS ORDERED: ASCO50TA PO (10:26)
[2022-01-14 14:06] LABS: BLOOD UREA NITROGEN 14 MG/DL (7-18); CALCIUM LEVEL 9.5 MG/DL (8.5-10.1); CARBON DIOXIDE LEVEL 22 MEQ/L (21-32); CHLORIDE LEVEL 107 MEQ/L (98-107); GLOMERULAR FILTRATION RATE > 60.0 (>58); GLUCOSE, FASTING 255 MG/DL (70-100); POTASSIUM SERUM 4.4 MEQ/L (3.5-5.1); SODIUM LEVEL 135 MEQ/L (136-145)
== END 2022-01-14 16:16 | disposition home or self-care (01) | DRG 58 ==
LOC: M ED 10:58 → M ED INP 16:38 → M PCU 01-14 00:44
PROVIDERS: ADMIT Family Medicine; ATTEND Family Medicine
DX: R20.2 Paresthesia of skin (principal); F32.A Depression, unspecified; J44.9 Chronic obstructive pulmonary disease, unspecified; G43.909 Migraine, unspecified, not intractable, without status migrainosus; G47.33 Obstructive sleep apnea (adult) (pediatric); E11.9 Type 2 diabetes mellitus without complications; M79.7 Fibromyalgia; Z79.4 Long term (current) use of insulin; Z79.899 Other long term (current) drug therapy; Z88.8 Allergy status to other drugs, medicaments and biological substances; Z88.7 Allergy status to serum and vaccine; E03.9 Hypothyroidism, unspecified; F43.10 Post-traumatic stress disorder, unspecified

== ENCOUNTER 2022-02-11 11:00 | Outpatient (RCR) | payer OTHER ==
[~2022-02-11 11:00] MED LIST changes: +ALBU6.7H6 INH; +AMIT10TA7 PO; +ASCO50TA PO; +BENA25CA4 PO; +CYAN100049 PO; +D32000CA PO; +DICY10CA13 PO; +FLON1SPR NARES; +INSU100I34 SQ; +MIRT-10 PO; +ONDA-83 PO; +SENN-83 PO; +URSO300C3 PO
[2022-02-11] MEDS ORDERED: BENZ200C70 PO (19:56)
== END 2022-02-13 ==
LOC: M PT 11:00
PROVIDERS: ATTEND Orthopaedic Surgery
DX: M54.50 Low back pain, unspecified (principal)

== ENCOUNTER 2022-02-11 11:04 | Emergency (ER) | payer OTHER ==
[~2022-02-11] VITALS: Ht 160 cm; Wt 85.0 kg
[2022-02-11] MEDS ORDERED: NS 1,000 ML IV ONE (15:20)
[2022-02-11 15:51] LABS: BASO # 0.1 10^3/uL (0.0-0.2); BASO % 0.7 % (0.0-1.0); EOS # 0.3 10^3/uL (0.0-0.5); EOS % 2.6 % (0.0-3.0); HEMATOCRIT 44.6 % (36.0-47.0); HEMOGLOBIN 14.4 g/dl (12.0-15.5); LYMPH # 3.4 10^3/uL (1.5-5.0); LYMPH % 30.2 % (24.0-44.0); MEAN CORPUSCULAR HGB CONC 32.3 g/dl (32.0-36.5); MEAN CORPUSCULAR VOLUME 102.3 fl (80.0-96.0); MONO % 8.8 % (2.0-8.0); NEUTROPHILS # 6.4 10^3/uL (1.5-8.5); NEUTROPHILS % 57.2 % (36.0-66.0); PLATELET COUNT, AUTOMATED 255 10^3/uL (150-450); RED BLOOD COUNT 4.36 10^6/uL (4.00-5.40); WHITE BLOOD COUNT 11.2 10^3/uL (4.0-10.0)
[2022-02-11] MEDS ORDERED: ISOVUE-370 76% 100ML VIAL As Ordered ONE (16:07)
[2022-02-11 16:26] LABS: RSV AMPLIFICATION POSITIVE (NEGATIVE)
[2022-02-11] MEDS: COMBIVENT RESPIMAT 100-20MCG INHALER 4GM INH SCH ×3 (16:29→18:07)
[2022-02-11] MEDS ORDERED: dexameTHASONE 20MG/5ML VIAL (J1100 PER 1MG) IV ONE (18:45)
[2022-02-11] MEDS ORDERED: BENZ200C70 PO (19:56)
[2022-02-11 20:21] VITALS: BP 128/84
== END 2022-02-11 20:26 | disposition home or self-care (01) ==
LOC: M ED 11:04
DX: J21.0 Acute bronchiolitis due to respiratory syncytial virus (principal); Z88.7 Allergy status to serum and vaccine; Z88.8 Allergy status to other drugs, medicaments and biological substances; Z90.49 Acquired absence of other specified parts of digestive tract; Z79.4 Long term (current) use of insulin; Z79.51 Long term (current) use of inhaled steroids; Z79.899 Other long term (current) drug therapy
CPT/HCPCS: 71275; 80047; 84132; 84702; 85025; 87631; 93005; 94640; 94664; 96361; 96374; 99284; J1100

== ENCOUNTER → 2022-04-29 | Outpatient (CLI) | payer OTHER ==
[~2022-04-29] MED LIST changes: +BENZ200C70 PO; +INSUR SC
[2022-04-29 12:41] LABS: BASO # 0.1 10^3/uL (0.0-0.2); BASO % 0.7 % (0.0-1.0); EOS # 0.3 10^3/uL (0.0-0.5); HEMATOCRIT 47.2 % (36.0-47.0); LYMPH # 3.9 10^3/uL (1.5-5.0); LYMPH % 34.7 % (24.0-44.0); MEAN CORPUSCULAR HEMOGLOBIN 33.2 pg (27.0-33.0); MEAN CORPUSCULAR HGB CONC 31.8 g/dl (32.0-36.5); MEAN CORPUSCULAR VOLUME 104.4 fl (80.0-96.0); MONO # 0.8 10^3/uL (0.0-0.8); MONO % 6.6 % (2.0-8.0); NEUTROPHILS # 6.2 10^3/uL (1.5-8.5); NEUTROPHILS % 54.6 % (36.0-66.0); PLATELET COUNT, AUTOMATED 261 10^3/uL (150-450); RED BLOOD COUNT 4.52 10^6/uL (4.00-5.40); WHITE BLOOD COUNT 11.4 10^3/uL (4.0-10.0)
[2022-04-29 13:18] LABS: ALKALINE PHOSPHATASE 161 U/L (46-116); ALT/SGPT 153 U/L (7.0-40); AST/SGOT 78 U/L (<34); BILIRUBIN,TOTAL 0.3 MG/DL (0.3-1.2); BLOOD UREA NITROGEN 15 MG/DL (9-23); CALCIUM LEVEL 9.6 MG/DL (8.5-10.1); CARBON DIOXIDE LEVEL 26 MMOL/L (20-31); CHLORIDE LEVEL 104 MMOL/L (98-107); CREATININE FOR GFR 0.67 MG/DL (0.55-1.30); GLOMERULAR FILTRATION RATE > 60.0 (>58); GLUCOSE, FASTING 151 MG/DL (60-100); SODIUM LEVEL 137 MMOL/L (136-145); TOTAL PROTEIN 7.7 G/DL (5.7-8.2)
== END ==
LOC: M LAB 11:25
PROVIDERS: ATTEND Family Medicine
DX: K74.3 Primary biliary cirrhosis (principal)

== ENCOUNTER → 2022-05-07 | Outpatient (CLI) | payer OTHER | LOC: M LABSMTC 10:27 | PROVIDERS: ATTEND Anesthesiology | DX: Z01.812 Encounter for preprocedural laboratory examination (principal); Z11.52 Encounter for screening for COVID-19 ==

== ENCOUNTER 2022-05-10 06:07 | Day surgery (SDC) | payer OTHER ==
[2022-05-10] VITALS (10 sets, daily range): BP systolic 108–140; BP diastolic 68–86; O2SAT 95
[~2022-05-10] VITALS: Ht 160 cm; Wt 98.0 kg
[~2022-05-10 06:07] MED LIST changes: +MONT-5 PO; -SING10TA32 PO; +TOPI-254 PO; -TOPI50TA9 PO; +ceFAZolin SOD 2 GM in IV 1 EA IV ONE
[2022-05-10] MEDS ORDERED: ONDANSETRON 4MG 2ML VIAL As Ordered ONE (06:41)
[2022-05-10] MEDS ORDERED: propofoL 200 MG/20 ML VIAL As Ordered ONE ×2 (06:42→10:14)
[2022-05-10] MEDS ORDERED: LIDOCAINE 2% 100MG/5ML SDV (FOR ANES.) As Ordered ONE (06:42)
[2022-05-10] MEDS ORDERED: fentaNYL 100 MCG/2 ML INJECTION As Ordered ONE ×2 (06:42→08:34)
[2022-05-10] MEDS ORDERED: ROCURONIUM BROMIDE 50MG/5ML VIAL As Ordered ONE ×2 (06:42→08:43)
[2022-05-10] MEDS ORDERED: GLYCOPYRROLATE INJ 0.2 MG/ML 2 ML VIAL As Ordered ONE (06:43)
[2022-05-10] MEDS ORDERED: MIDAZOLAM INJ 2MG/2ML VIAL As Ordered ONE (06:43)
[2022-05-10 06:47] LABS: HEMATOCRIT 42.6 % (36.0-47.0); HEMOGLOBIN 13.8 g/dl (12.0-15.5); MEAN CORPUSCULAR HEMOGLOBIN 33.3 pg (27.0-33.0); MEAN CORPUSCULAR HGB CONC 32.4 g/dl (32.0-36.5); MEAN CORPUSCULAR VOLUME 102.9 fl (80.0-96.0); PLATELET COUNT, AUTOMATED 268 10^3/uL (150-450); RED BLOOD COUNT 4.14 10^6/uL (4.00-5.40); WHITE BLOOD COUNT 10.3 10^3/uL (4.0-10.0)
[2022-05-10] MEDS ORDERED: INSULIN LISPRO (NovoLOG) PER UNIT SC PRN (07:10)
[2022-05-10] MEDS ORDERED: LIDOCAINE 1% SDV 5ML VIAL SC PRN (07:10)
[2022-05-10] MEDS ORDERED: LR 1,000 ML IV SCH ×3 (07:10→10:40)
[2022-05-10] MEDS ORDERED: BUPIVACAINE HCL 0.25% 30ML VIAL As Ordered ONE (07:15)
[2022-05-10] MEDS ORDERED: METOCLOPRAMIDE INJ 10MG/2ML VIAL As Ordered ONE (08:04)
[2022-05-10] MEDS ORDERED: ACETAMINOPHEN 1000MG 100ML IV BAG As Ordered ONE (08:13)
[2022-05-10] MEDS ORDERED: KETAMINE HCL 200MG/20ML VIAL As Ordered ONE (08:26)
[2022-05-10] MEDS ORDERED: ONDANSETRON 4MG 2ML VIAL IV PRN (10:00)
[2022-05-10] MEDS: fentaNYL 100 MCG/2 ML INJECTION IV PRN ×4 (10:12→10:29)
[2022-05-10] MEDS: oxyCODONE 5MG TAB PO PRN ×3 (10:32→20:05)
[2022-05-10] MEDS: HYDROMORPHONE HCL 0.5 MG/ 0.5 ML SYRINGE IV PRN ×4 (10:32→10:58)
[2022-05-10] MEDS ORDERED: oxyCODONE 5MG TAB PO PRN (10:40)
[2022-05-10] MEDS ORDERED: KETOROLAC 30 MG/ML 1ML VIAL As Ordered ONE (10:41)
[2022-05-10] MEDS: KETOROLAC 30 MG/ML 1ML VIAL IV SCH ×3 (10:43→23:42)
[2022-05-10] MEDS ORDERED: PROMETHAZINE 25MG/ML 1ML VIAL IV PRN (10:45)
[2022-05-10] MEDS ORDERED: SUGAMMADEX SODIUM 500 MG/5 ML VIAL (BRIDION) As Ordered ONE (12:07)
[2022-05-10] MEDS ORDERED: LISI10TA22 PO (13:14)
[2022-05-10] MEDS ORDERED: INSUHUMDS SC (13:14)
[2022-05-10] MEDS ORDERED: HOME MED LIST COMPLETE! XX SCH (13:15)
[2022-05-10] MEDS ORDERED: ALBUTEROL 90 MCG/ACT 8GM HFA INHALER INH PRN (13:45)
[2022-05-10] MEDS: SYMBICORT 160/4.5MCG INHALER 6GM INH SCH (19:46)
[2022-05-10] MEDS ORDERED: PRAZOSIN 1 MG CAP PO SCH (20:00)
[2022-05-10] MEDS ORDERED: TOPIRAMATE (TopAMAX) 25 MG TAB PO SCH (21:00)
[2022-05-11] MEDS: oxyCODONE 5MG TAB PO PRN ×3 (00:27→09:26)
[2022-05-11] MEDS ORDERED: LEVOTHYROXINE 25MCG TABLET (0.025MG) PO SCH (06:00)
[2022-05-11] MEDS: KETOROLAC 30 MG/ML 1ML VIAL IV SCH ×2 (06:04→10:45)
[2022-05-11 06:45] VITALS: BP 126/67
[2022-05-11] MEDS: SYMBICORT 160/4.5MCG INHALER 6GM INH SCH (08:10)
[2022-05-11 08:23] LABS: HEMATOCRIT 36.6 % (36.0-47.0); HEMOGLOBIN 11.6 g/dl (12.0-15.5); MEAN CORPUSCULAR HEMOGLOBIN 33.5 pg (27.0-33.0); MEAN CORPUSCULAR HGB CONC 31.7 g/dl (32.0-36.5); MEAN CORPUSCULAR VOLUME 105.8 fl (80.0-96.0); PLATELET COUNT, AUTOMATED 206 10^3/uL (150-450); RED BLOOD COUNT 3.46 10^6/uL (4.00-5.40); WHITE BLOOD COUNT 10.5 10^3/uL (4.0-10.0)
[2022-05-11 08:24] VITALS: BP 139/81
[2022-05-11 10:00] VITALS: BP 146/87
== END 2022-05-11 13:27 | disposition home or self-care (01) ==
LOC: M SDC 06:07 → M MSPAV 11:23 → M SDC 05-11 13:27
PROVIDERS: ATTEND Obstetrics & Gynecology
DX: N80.03 Adenomyosis of the uterus (principal); R10.2 Pelvic and perineal pain; N93.9 Abnormal uterine and vaginal bleeding, unspecified; I10 Essential (primary) hypertension; E11.9 Type 2 diabetes mellitus without complications; E24.9 Cushing's syndrome, unspecified; E03.9 Hypothyroidism, unspecified; K58.8 Other irritable bowel syndrome; K21.9 Gastro-esophageal reflux disease without esophagitis; D64.9 Anemia, unspecified; G47.33 Obstructive sleep apnea (adult) (pediatric); Z87.891 Personal history of nicotine dependence; Z79.899 Other long term (current) drug therapy; J44.9 Chronic obstructive pulmonary disease, unspecified; Z86.711 Personal history of pulmonary embolism; F41.9 Anxiety disorder, unspecified; F32.A Depression, unspecified; M79.7 Fibromyalgia
CPT/HCPCS: 36415; 58571; 81025; 85027; 86850; 86900; 86901; 88307; 94640; 96361; 96374; 96376; J0690; J1100; J1170; J2250; J2405; J2765; J3010; S2900

== ENCOUNTER → 2022-05-22 | Outpatient (CLI) | payer OTHER ==
[~2022-05-22] MED LIST changes: -ceFAZolin SOD 2 GM in IV 1 EA IV ONE
[2022-05-22 14:12] LABS: APPEARANCE, URINE CLEAR (CLEAR); BACTERIA, URINE AUTO NEGATIVE (NEGATIVE); BILIRUBIN, URINE AUTO NEGATIVE (NEGATIVE); BLOOD, URINE BLOOD NEGATIVE (NEGATIVE); COLOR, URINE YELLOW (YELLOW); GLUCOSE, URINE (UA) AUTO 3+ mg/dL (NEGATIVE); KETONE, URINE AUTO NEGATIVE (NEGATIVE); LEUKOCYTE ESTERASE, URINE AUTO NEGATIVE (NEGATIVE); NITRITE, URINE AUTO NEGATIVE (NEGATIVE); PROTEIN, URINE AUTO NEGATIVE (NEGATIVE); RBC, URINE AUTO 0 /HPF (0-3); SPECIFIC GRAVITY URINE AUTO 1.016 (1.002-1.035); SQUAMOUS EPITHELIAL CELL UR AU 1 /HPF (0-6); UROBILINOGEN, URINE AUTO 0.2 mg/dL (0.0-2.0); WBC, URINE AUTO 1 /HPF (0-3)
== END ==
LOC: M LAB 13:24
PROVIDERS: ATTEND Family Medicine
DX: R30.0 Dysuria (principal)

== ENCOUNTER → 2022-05-22 | Outpatient (CLI) | payer OTHER ==
[2022-05-22 14:14] LABS: HEMATOCRIT 42.2 % (36.0-47.0); HEMOGLOBIN 13.8 g/dl (12.0-15.5); MEAN CORPUSCULAR HEMOGLOBIN 34.1 pg (27.0-33.0); MEAN CORPUSCULAR HGB CONC 32.7 g/dl (32.0-36.5); MEAN CORPUSCULAR VOLUME 104.2 fl (80.0-96.0); PLATELET COUNT, AUTOMATED 319 10^3/uL (150-450); RED BLOOD COUNT 4.05 10^6/uL (4.00-5.40); WHITE BLOOD COUNT 10.8 10^3/uL (4.0-10.0)
[2022-05-22 14:32] LABS: ERYTHROCYTE SEDIMENTATION RATE 56 mm/hr (0-20)
[2022-05-22 17:13] LABS: ALBUMIN 3.7 G/DL (3.2-5.2); ALKALINE PHOSPHATASE 200 U/L (46-116); ALT/SGPT 91 U/L (7.0-40); AST/SGOT 59 U/L (<34); BILIRUBIN,DIRECT < 0.1 MG/DL (<0.4); BILIRUBIN,TOTAL 0.3 MG/DL (0.3-1.2); BLOOD UREA NITROGEN 16 MG/DL (9-23); CALCIUM LEVEL 9.3 MG/DL (8.5-10.1); CARBON DIOXIDE LEVEL 25 MMOL/L (20-31); CHLORIDE LEVEL 102 MMOL/L (98-107); CREATININE FOR GFR 0.49 MG/DL (0.55-1.30); GLOMERULAR FILTRATION RATE > 60.0 (>58); GLUCOSE, FASTING 127 MG/DL (60-100); POTASSIUM SERUM 4.4 MMOL/L (3.5-5.1); SODIUM LEVEL 137 MMOL/L (136-145)
[2022-05-22 17:15] LABS: TOTAL PROTEIN 7.7 G/DL (5.7-8.2)
== END ==
LOC: M LAB 13:19
PROVIDERS: ATTEND Physician Assistant Medical
DX: K74.3 Primary biliary cirrhosis (principal); K75.81 Nonalcoholic steatohepatitis (NASH)

== ENCOUNTER → 2022-06-04 | Outpatient (REF) | payer OTHER | LOC: M LAB REF 11:46 | PROVIDERS: ATTEND Physician Assistant Medical | DX: K74.3 Primary biliary cirrhosis (principal); K85.90 Acute pancreatitis without necrosis or infection, unspecified; Z15.89 Genetic susceptibility to other disease ==

== ENCOUNTER 2022-06-10 12:44 | Emergency (ER) | payer OTHER ==
[~2022-06-10] VITALS: Ht 160 cm; Wt 88.6 kg
[2022-06-10] MEDS ORDERED: ONDANSETRON 4MG 2ML VIAL IV ONE (18:10)
[2022-06-10] MEDS ORDERED: NS 1,000 ML IV ONE (18:10)
[2022-06-10] MEDS ORDERED: KETOROLAC 30 MG/ML 1ML VIAL IV ONE (18:10)
[2022-06-10 18:54] LABS: BASO # 0.1 10^3/uL (0.0-0.2); BASO % 0.6 % (0.0-1.0); EOS # 0.3 10^3/uL (0.0-0.5); EOS % 2.5 % (0.0-3.0); HEMATOCRIT 42.5 % (36.0-47.0); HEMOGLOBIN 13.8 g/dl (12.0-15.5); LYMPH # 3.3 10^3/uL (1.5-5.0); LYMPH % 28.4 % (24.0-44.0); MEAN CORPUSCULAR HEMOGLOBIN 33.4 pg (27.0-33.0); MEAN CORPUSCULAR HGB CONC 32.5 g/dl (32.0-36.5); MEAN CORPUSCULAR VOLUME 102.9 fl (80.0-96.0); MONO # 0.9 10^3/uL (0.0-0.8); NEUTROPHILS # 6.9 10^3/uL (1.5-8.5); NEUTROPHILS % 59.9 % (36.0-66.0); PLATELET COUNT, AUTOMATED 255 10^3/uL (150-450); RED BLOOD COUNT 4.13 10^6/uL (4.00-5.40); WHITE BLOOD COUNT 11.5 10^3/uL (4.0-10.0)
[2022-06-10 20:17] LABS: ALBUMIN 3.9 G/DL (3.2-5.2); ALKALINE PHOSPHATASE 171 U/L (46-116); ALT/SGPT 59 U/L (7.0-40); AST/SGOT 44 U/L (<34); BILIRUBIN,TOTAL 0.2 MG/DL (0.3-1.2); BLOOD UREA NITROGEN 18 MG/DL (9-23); CALCIUM LEVEL 9.3 MG/DL (8.5-10.1); CARBON DIOXIDE LEVEL 23 MMOL/L (20-31); CHLORIDE LEVEL 105 MMOL/L (98-107); GLOMERULAR FILTRATION RATE > 60.0 (>58); GLUCOSE, FASTING 77 MG/DL (60-100); POTASSIUM SERUM 3.9 MMOL/L (3.5-5.1); SODIUM LEVEL 140 MMOL/L (136-145); TOTAL PROTEIN 7.6 G/DL (5.7-8.2)
[2022-06-10 20:26] LABS: INR 0.92; PROTHROMBIN TIME 12.6 SECONDS (12.5-14.5)
[2022-06-10] MEDS ORDERED: PERCOCET 5MG/325MG TAB PO ONE (20:40)
[2022-06-10 20:59] LABS: LIPASE 124 U/L (12-53)
[2022-06-10 21:01] LABS: BILIRUBIN,DIRECT < 0.1 MG/DL (<0.4)
[2022-06-10] MEDS ORDERED: ISOVUE-370 76% 100ML VIAL As Ordered ONE (21:37)
[2022-06-10 23:16] VITALS: BP 162/91
== END 2022-06-10 23:28 | disposition home or self-care (01) ==
LOC: M ED 12:44
DX: K52.9 Noninfective gastroenteritis and colitis, unspecified (principal); R91.1 Solitary pulmonary nodule; N20.0 Calculus of kidney; E66.9 Obesity, unspecified; I10 Essential (primary) hypertension; I50.9 Heart failure, unspecified; K21.9 Gastro-esophageal reflux disease without esophagitis; K58.9 Irritable bowel syndrome, unspecified; N17.9 Acute kidney failure, unspecified; E03.9 Hypothyroidism, unspecified; E78.5 Hyperlipidemia, unspecified; G62.9 Polyneuropathy, unspecified; J45.909 Unspecified asthma, uncomplicated; E11.9 Type 2 diabetes mellitus without complications; J44.9 Chronic obstructive pulmonary disease, unspecified; Z87.11 Personal history of peptic ulcer disease; Z87.19 Personal history of other diseases of the digestive system; Z79.4 Long term (current) use of insulin; Z79.899 Other long term (current) drug therapy; Z88.7 Allergy status to serum and vaccine; Z88.8 Allergy status to other drugs, medicaments and biological substances
CPT/HCPCS: 74019; 74177; 80053; 82248; 83690; 85025; 85610; 85730; 96374; 96375; 99284; J1885; J2405; Q9967

== ENCOUNTER 2022-07-12 13:34 | Observation (INO) | payer OTHER ==
[~2022-07-12] VITALS: Ht 162.6 cm; Wt 90.9 kg
[~2022-07-12 13:34] MED LIST changes: +ARTIDRO4 OU; -POLYOPD OU; +PRED15SO24 PO; -PRED5SOL10 PO
[2022-07-12] MEDS ORDERED: methylPREDNISolone 125MG 2ML VIAL IV ONE (14:40)
[2022-07-12] MEDS ORDERED: ALBUTEROL SULFATE 2.5MG/0.5ML INH NEB SOLN NEB ONE ×2 (14:40→16:50)
[2022-07-12] MEDS ORDERED: IPRATROPIUM 0.02% SOLN 0.5MG 2.5ML NEB NEB ONE ×2 (14:40→16:50)
[2022-07-12] MEDS: MAG SULF 1GM/100ML (MAG RUN) 1 GM in IV 1 EA IV SCH ×2 (14:50→14:56)
[2022-07-12 15:11] LABS: BASO # 0.1 10^3/uL (0.0-0.2); BASO % 1.1 % (0.0-1.0); EOS # 0.6 10^3/uL (0.0-0.5); EOS % 5.4 % (0.0-3.0); HEMATOCRIT 45.6 % (36.0-47.0); HEMOGLOBIN 14.8 g/dl (12.0-15.5); LYMPH # 3.7 10^3/uL (1.5-5.0); MEAN CORPUSCULAR HEMOGLOBIN 33.1 pg (27.0-33.0); MEAN CORPUSCULAR HGB CONC 32.5 g/dl (32.0-36.5); MONO # 0.9 10^3/uL (0.0-0.8); MONO % 8.2 % (2.0-8.0); NEUTROPHILS # 5.1 10^3/uL (1.5-8.5); NEUTROPHILS % 48.8 % (36.0-66.0); PLATELET COUNT, AUTOMATED 279 10^3/uL (150-450); RED BLOOD COUNT 4.47 10^6/uL (4.00-5.40); WHITE BLOOD COUNT 10.4 10^3/uL (4.0-10.0)
[2022-07-12 15:41] LABS: ALBUMIN 4.1 G/DL (3.2-5.2); ALKALINE PHOSPHATASE 202 U/L (46-116); ALT/SGPT 96 U/L (7.0-40); AST/SGOT 38 U/L (<34); BILIRUBIN,DIRECT < 0.1 MG/DL (<0.4); BILIRUBIN,TOTAL 0.2 MG/DL (0.3-1.2); BLOOD UREA NITROGEN 19 MG/DL (9-23); CALCIUM LEVEL 9.9 MG/DL (8.5-10.1); CARBON DIOXIDE LEVEL 28 MMOL/L (20-31); CHLORIDE LEVEL 102 MMOL/L (98-107); CREATININE FOR GFR 0.71 MG/DL (0.55-1.30); GLOMERULAR FILTRATION RATE > 60.0 (>58); GLUCOSE, FASTING 227 MG/DL (60-100); MAGNESIUM LEVEL 2.2 MG/DL (1.8-2.4); SODIUM LEVEL 141 MMOL/L (136-145)
[2022-07-12 15:43] LABS: THYROID STIMULATING HORMONE 0.483 uIU/ML (0.55-4.78); THYROXINE (T4) 12.5 UG/DL (4.5-10.9)
[2022-07-12] MEDS ORDERED: GLUCAGON INJ 1MG VIAL SC PRN (18:20)
[2022-07-12] MEDS ORDERED: GLUCOSE 4GM CHEW TABLET PO PRN (18:20)
[2022-07-12] MEDS ORDERED: DEXTROSE 50% 50ML SYRINGE IV PRN (18:20)
[2022-07-12 18:52] LABS: FREE T4 1.12 NG/DL (0.89-1.76)
[2022-07-12] MEDS: AZITHROMYCIN 250MG TABLET PO SCH (18:52)
[2022-07-12] MEDS ORDERED: VITA500C24 PO (18:53)
[2022-07-12] MEDS ORDERED: HOME MED LIST COMPLETE! XX SCH (18:55)
[2022-07-12] MEDS ORDERED: SUMAtriptan SUCCINATE 25 MG TAB PO PRN (19:05)
[2022-07-12] MEDS ORDERED: oxyCODONE 5MG TAB PO PRN (19:05)
[2022-07-12] MEDS ORDERED: POLYVINYL ALCOHOL OPHTH SOLN 15ML (LIQUITEARS) OU PRN (19:05)
[2022-07-12] MEDS ORDERED: ONDANSETRON 4MG TAB PO PRN (19:05)
[2022-07-12 19:37] VITALS: BP 172/98
[2022-07-12] MEDS: IPRATROPIUM 0.02% SOLN 0.5MG 2.5ML NEB NEB SCH (20:00)
[2022-07-12] MEDS: LEVALBUTEROL 1.25MG 0.5ML CONCENTRATE NEB NEB SCH (20:00)
[2022-07-12] MEDS: SYMBICORT 160/4.5MCG INHALER 6GM INH SCH (20:53)
[2022-07-12] MEDS ORDERED: MIRTAZAPINE 15 MG TAB PO SCH (21:00)
[2022-07-12] MEDS ORDERED: PRAZOSIN 1 MG CAP PO SCH (21:00)
[2022-07-12] MEDS ORDERED: INSULIN LISPRO (NovoLOG) PER UNIT SC SCH (21:00)
[2022-07-12] MEDS ORDERED: VENLAFAXINE **XR** 75MG CAPSULE PO SCH (21:00)
[2022-07-12] MEDS ORDERED: AMITRIPTYLINE 10MG TABLET PO SCH (21:00)
[2022-07-12] MEDS ORDERED: MONTELUKAST 10 MG TAB PO SCH (21:00)
[2022-07-12] MEDS: DICYCLOMINE 10 MG CAP PO SCH (21:16)
[2022-07-12] MEDS: GABAPENTIN 300 MG CAP PO SCH (21:16)
[2022-07-12] MEDS: LEVEMIR (INSULIN DETEMIR) 1 UNITS/0.01ML SC SCH (21:17)
[2022-07-12] MEDS: tiZANidine 4 MG TAB PO SCH (21:17)
[2022-07-12] MEDS: busPIRone 10 MG TAB PO SCH (21:17)
[2022-07-12] MEDS: PANTOPRAZOLE 40MG TAB (PROTONIX) PO SCH (21:17)
[2022-07-12] MEDS: ursodioL 300MG CAP PO SCH (21:17)
[2022-07-13 05:27] VITALS: BP 129/86
[2022-07-13] MEDS ORDERED: LEVOTHYROXINE 25MCG TABLET (0.025MG) PO SCH (06:00)
[2022-07-13 06:23] LABS: HEMATOCRIT 42.5 % (36.0-47.0); HEMOGLOBIN 13.9 g/dl (12.0-15.5); MEAN CORPUSCULAR HEMOGLOBIN 33.4 pg (27.0-33.0); MEAN CORPUSCULAR HGB CONC 32.7 g/dl (32.0-36.5); MEAN CORPUSCULAR VOLUME 102.2 fl (80.0-96.0); PLATELET COUNT, AUTOMATED 251 10^3/uL (150-450); RED BLOOD COUNT 4.16 10^6/uL (4.00-5.40); WHITE BLOOD COUNT 11.5 10^3/uL (4.0-10.0)
[2022-07-13 06:50] LABS: BLOOD UREA NITROGEN 25 MG/DL (9-23); CALCIUM LEVEL 9.3 MG/DL (8.5-10.1); CARBON DIOXIDE LEVEL 27 MMOL/L (20-31); CHLORIDE LEVEL 101 MMOL/L (98-107); CREATININE FOR GFR 0.56 MG/DL (0.55-1.30); GLOMERULAR FILTRATION RATE > 60.0 (>58); GLUCOSE, FASTING 294 MG/DL (60-100); POTASSIUM SERUM 4.6 MMOL/L (3.5-5.1); SODIUM LEVEL 137 MMOL/L (136-145)
[2022-07-13] MEDS: IPRATROPIUM 0.02% SOLN 0.5MG 2.5ML NEB NEB SCH (07:40)
[2022-07-13] MEDS: LEVALBUTEROL 1.25MG 0.5ML CONCENTRATE NEB NEB SCH (07:41)
[2022-07-13] MEDS: SYMBICORT 160/4.5MCG INHALER 6GM INH SCH (07:41)
[2022-07-13] MEDS: INSULIN LISPRO (NovoLOG) PER UNIT SC SCH ×2 (08:11→12:16)
[2022-07-13] MEDS: busPIRone 10 MG TAB PO SCH (08:12)
[2022-07-13] MEDS: LEVEMIR (INSULIN DETEMIR) 1 UNITS/0.01ML SC SCH (08:12)
[2022-07-13] MEDS: GABAPENTIN 300 MG CAP PO SCH (08:13)
[2022-07-13] MEDS: PANTOPRAZOLE 40MG TAB (PROTONIX) PO SCH (08:13)
[2022-07-13 08:14] VITALS: BP 138/89
[2022-07-13] MEDS: AZITHROMYCIN 250MG TABLET PO SCH (08:14)
[2022-07-13] MEDS: ursodioL 300MG CAP PO SCH (08:14)
[2022-07-13] MEDS: DICYCLOMINE 10 MG CAP PO SCH ×2 (08:14→12:15)
[2022-07-13] MEDS: tiZANidine 4 MG TAB PO SCH (08:14)
[2022-07-13] MEDS ORDERED: FLUTICASONE PROP 0.05% NASAL SPRAY 16 GM (FLONASE) NARES SCH (09:00)
[2022-07-13] MEDS ORDERED: ENOXAPARIN 40MG/0.4ML SYRINGE (J1650 PER 10MG) SC SCH (09:00)
[2022-07-13] MEDS ORDERED: CETIRIZINE (ZyrTEC) 10 MG TAB PO SCH (09:00)
[2022-07-13] MEDS ORDERED: methylPREDNISolone 40MG 1ML VIAL IV SCH (09:00)
[2022-07-13] MEDS ORDERED: FERROUS SULFATE 325MG TAB PO SCH (09:00)
[2022-07-13] MEDS ORDERED: PRED15SO24 PO (10:13)
[2022-07-13] MEDS ORDERED: AZIT-12 PO ×2 (10:13→10:14)
[2022-07-13] MEDS ORDERED: SPIR1CAP INH (10:13)
[2022-07-13] MEDS ORDERED: ALBUTEROL SULFATE 2.5MG/0.5ML INH NEB SOLN INH SCH (12:00)
[2022-07-13] MEDS ORDERED: IPRATROPIUM 0.02% SOLN 0.5MG 2.5ML NEB INH SCH (12:00)
[2022-07-13] MEDS ORDERED: IPRATROPIUM 0.5MG/ALBUTEROL 2.5MG INH SOL UD 3ML (DUONEB) NEB SCH (13:00)
== END 2022-07-13 12:50 | disposition home or self-care (01) ==
LOC: M ED 13:34 → M ED INP 18:11 → M MSPAV 19:30
PROVIDERS: ADMIT Internal Medicine; ATTEND Internal Medicine
DX: J44.1 Chronic obstructive pulmonary disease with (acute) exacerbation (principal); E11.9 Type 2 diabetes mellitus without complications; Z79.4 Long term (current) use of insulin; E03.9 Hypothyroidism, unspecified; I10 Essential (primary) hypertension; K21.9 Gastro-esophageal reflux disease without esophagitis; G43.909 Migraine, unspecified, not intractable, without status migrainosus; F41.9 Anxiety disorder, unspecified; F32.A Depression, unspecified; E88.01 Alpha-1-antitrypsin deficiency; Z86.711 Personal history of pulmonary embolism; Z79.899 Other long term (current) drug therapy; Z79.52 Long term (current) use of systemic steroids; Z88.7 Allergy status to serum and vaccine; Z88.8 Allergy status to other drugs, medicaments and biological substances
CPT/HCPCS: 36415; 71045; 80048; 80076; 83735; 84436; 84439; 84443; 85025; 85027; 87040; 87486; 87581; 87633; 87798; 93005; 94640; 94760; 96361; 96374; 96376; 99284; J1650; J1815; J2920; J2930; J3475

== ENCOUNTER → 2023-01-17 | Outpatient (CLI) | payer OTHER ==
[~2023-01-17] MED LIST changes: -CEFD300C41 PO; +CEFD300C42 PO; +DICY-61 PO; -DICY10CA13 PO; -GABA-283 PO; +GABA-284 PO; +SPIR1CAP INH; +VITA500C24 PO
[2023-01-17 12:45] LABS: BASO # 0.1 10^3/uL (0.0-0.2); EOS # 0.8 10^3/uL (0.0-0.5); EOS % 8.5 % (0.0-3.0); HEMATOCRIT 42.1 % (36.0-47.0); HEMOGLOBIN 13.7 g/dl (12.0-15.5); LYMPH # 3.1 10^3/uL (1.5-5.0); LYMPH % 34.5 % (24.0-44.0); MEAN CORPUSCULAR HGB CONC 32.5 g/dl (32.0-36.5); MEAN CORPUSCULAR VOLUME 104.5 fl (80.0-96.0); MONO # 0.7 10^3/uL (0.0-0.8); MONO % 8.3 % (2.0-8.0); NEUTROPHILS # 4.2 10^3/uL (1.5-8.5); NEUTROPHILS % 47.4 % (36.0-66.0); PLATELET COUNT, AUTOMATED 252 10^3/uL (150-450); RED BLOOD COUNT 4.03 10^6/uL (4.00-5.40); WHITE BLOOD COUNT 8.9 10^3/uL (4.0-10.0)
[2023-01-17 13:05] LABS: CREATININE, URINE 17.2 MG/DL; MALB URINE SIEMENS < 3.0 MG/L; MAU/CREAT RATIO 17.4 MCG/MG (0.0-30.0)
[2023-01-17 13:10] LABS: ALBUMIN 3.7 G/DL (3.2-5.2); ALKALINE PHOSPHATASE 177 U/L (46-116); ALT/SGPT 51 U/L (7.0-40); AST/SGOT 24 U/L (<34); BILIRUBIN,TOTAL 0.3 MG/DL (0.3-1.2); BLOOD UREA NITROGEN 8 MG/DL (9-23); CALCIUM LEVEL 9.2 MG/DL (8.5-10.1); CARBON DIOXIDE LEVEL 29 MMOL/L (20-31); CHLORIDE LEVEL 103 MMOL/L (98-107); CHOLESTEROL LEVEL 215 MG/DL (<200); CHOLESTEROL RISK RATIO 4.42 (<5); CREATININE FOR GFR 0.51 MG/DL (0.55-1.30); GLOMERULAR FILTRATION RATE > 60.0 (>51); GLUCOSE, FASTING 110 MG/DL (60-100); HDL CHOLESTEROL 48.6 MG/DL (>40); LDL CHOLESTEROL 142.6 MG/DL (<100); NON-HDL-C 166.4 MG/DL; POTASSIUM SERUM 4.2 MMOL/L (3.5-5.1); SODIUM LEVEL 140 MMOL/L (136-145); THYROID STIMULATING HORMONE 0.784 uIU/ML (0.55-4.78); TOTAL PROTEIN 7.2 G/DL (5.7-8.2); TRIGLYCERIDES LEVEL 119 MG/DL (<150)
[2023-01-17 13:19] LABS: HEMOGLOBIN A1c 8.7 % (4.0-6.0)
== END ==
LOC: M LAB 11:37
PROVIDERS: ATTEND Family Medicine
DX: E11.9 Type 2 diabetes mellitus without complications (principal); K74.3 Primary biliary cirrhosis; E03.9 Hypothyroidism, unspecified

== ENCOUNTER 2023-06-05 16:33 | Emergency (ER) | payer OTHER ==
[~2023-06-05] VITALS: Ht 160 cm; Wt 89.7 kg
[~2023-06-05 16:33] MED LIST changes: +CEFD1CAP9 PO; -CEFD300C42 PO; -INSU100I34 SQ; +INSU100I59 SQ; +INSU100V19 SC; -INSURSD SC; +TOPI-21 PO; -TOPI-254 PO
[2023-06-05 18:05] VITALS: TEMP 97.2; O2SAT 96
[2023-06-05] MEDS: DOXYCYCLINE HYCLATE 100MG TABLET PO ONE (18:17)
[2023-06-05] MEDS: OFLOXACIN 0.3 % (OCUFLOX) OPTH SOL 5ML AD STA (18:17)
[2023-06-05] MEDS ORDERED: DOXY-443 PO (18:44)
[2023-06-05] MEDS ORDERED: OFLOSO AD (18:44)
[2023-06-05 18:49] VITALS: BP 162/102
== END 2023-06-05 18:52 | disposition home or self-care (01) ==
LOC: M ED 16:33
DX: H60.92 Unspecified otitis externa, left ear (principal); L03.211 Cellulitis of face; I10 Essential (primary) hypertension; E78.5 Hyperlipidemia, unspecified; Z86.718 Personal history of other venous thrombosis and embolism; J44.9 Chronic obstructive pulmonary disease, unspecified; Z88.8 Allergy status to other drugs, medicaments and biological substances; Z88.7 Allergy status to serum and vaccine; Z79.51 Long term (current) use of inhaled steroids; Z79.899 Other long term (current) drug therapy; Z79.4 Long term (current) use of insulin

== ENCOUNTER 2023-06-29 19:32 | Emergency (ER) | payer OTHER ==
[~2023-06-29] VITALS: Ht 160 cm; Wt 86.4 kg
[~2023-06-29 19:32] MED LIST changes: +OFLOSO AD
[2023-06-29] MEDS: PROPARACAINE 0.5% OPHTH SOL 15ML OS ONE (22:27)
[2023-06-29] MEDS: FLUORESCEIN OPHTH 1MG STRIP OS ONE (22:27)
[2023-06-29] MEDS ORDERED: CIPR0.3S37 OS (22:34)
[2023-06-29] MEDS: CIPROFLOXACIN 0.3% OPHTH SOLN 2.5ML OS ONE (22:38)
[2023-06-29 22:44] VITALS: BP 172/108; TEMP 98.2; O2SAT 98
== END 2023-06-29 22:53 | disposition home or self-care (01) ==
LOC: M ED 19:32 → EDBD 19:32 → M ED 22:53
DX: T15.02XA Foreign body in cornea, left eye, initial encounter (principal); E11.9 Type 2 diabetes mellitus without complications; I10 Essential (primary) hypertension; J45.909 Unspecified asthma, uncomplicated; Z86.79 Personal history of other diseases of the circulatory system; Z88.7 Allergy status to serum and vaccine; Z88.8 Allergy status to other drugs, medicaments and biological substances; Y92.009 Unspecified place in unspecified non-institutional (private) residence as the place of occurrence of the external cause; Y93.89 Activity, other specified; Y99.9 Unspecified external cause status; Z79.52 Long term (current) use of systemic steroids; Z79.891 Long term (current) use of opiate analgesic; Z79.811 Long term (current) use of aromatase inhibitors; Z79.899 Other long term (current) drug therapy; Z79.4 Long term (current) use of insulin

== ENCOUNTER → 2023-08-04 | Outpatient (CLI) | payer OTHER ==
[~2023-08-04] MED LIST changes: +CIPR0.3S37 OS; +DOXY-323 PO; +DOXY-440 PO; -DOXY-443 PO; -DOXY-444 PO; +ONDA-282 PO; -ONDA4TAB6 PO
[2023-08-04 12:02] LABS: HEMATOCRIT 44.4 % (36.0-47.0); HEMOGLOBIN 14.9 g/dl (12.0-15.5); MEAN CORPUSCULAR HEMOGLOBIN 34.3 pg (27.0-33.0); MEAN CORPUSCULAR HGB CONC 33.6 g/dl (32.0-36.5); MEAN CORPUSCULAR VOLUME 102.1 fl (80.0-96.0); PLATELET COUNT, AUTOMATED 300 10^3/uL (150-450); RED BLOOD COUNT 4.35 10^6/uL (4.00-5.40); WHITE BLOOD COUNT 8.7 10^3/uL (4.0-10.0)
[2023-08-04 12:19] LABS: INR 0.86; PROTHROMBIN TIME 11.5 SECONDS (12.5-14.5)
[2023-08-04 12:23] LABS: ALBUMIN 4.2 G/DL (3.2-5.2); ALKALINE PHOSPHATASE 236 U/L (46-116); ALT/SGPT 38 U/L (7.0-40); AST/SGOT 13 U/L (<34); BILIRUBIN,DIRECT < 0.1 MG/DL (<0.4); BILIRUBIN,TOTAL 0.2 MG/DL (0.3-1.2); TOTAL PROTEIN 7.9 G/DL (5.7-8.2)
[2023-08-18 14:13] LABS: A1A FOR PHENOTYPE 118 mg/dL (101-187); ALPHA-1-ANTITRYPSIN PHENOTYPE MZ (.)
== END ==
LOC: M LAB 10:33
PROVIDERS: ATTEND Student in an Organized Health Care Education/Training Program
DX: K74.3 Primary biliary cirrhosis (principal)

== ENCOUNTER → 2023-08-22 | Outpatient (REF) | payer OTHER | LOC: M SFHCLERA 14:31 | PROVIDERS: ATTEND Physician Assistant | DX: Z53.9 Procedure and treatment not carried out, unspecified reason (principal) ==

== ENCOUNTER → 2024-03-03 | Outpatient (REF) | payer OTHER ==
[~2024-03-03] MED LIST changes: -CYCL5TAB PO; +CYCL5TAB4 PO; -DOXY-323 PO; +DOXY-441 PO; +GABA-1172 PO; +GABA-1490; +GABA-1490 PO; -GABA-282 PO; -GABA600T4; -GABA600T4 PO; +SENN-187 PO; -SENN-83 PO
[2024-03-03 17:40] LABS: CREATININE, URINE 50.4 MG/DL; MALB URINE SIEMENS < 3.0 MG/L
[2024-03-03 17:44] LABS: BLOOD UREA NITROGEN 20 MG/DL (9-23); CALCIUM LEVEL 11.1 MG/DL (8.5-10.1); CARBON DIOXIDE LEVEL 26 MMOL/L (20-31); CHLORIDE LEVEL 101 MMOL/L (98-107); CHOLESTEROL LEVEL 226 MG/DL (<200); CHOLESTEROL RISK RATIO 6.68 (<5); CREATININE FOR GFR 0.58 MG/DL (0.55-1.30); FREE T4 1.28 NG/DL (0.89-1.76); GLOMERULAR FILTRATION RATE > 60.0 (>51); GLUCOSE, FASTING 298 MG/DL (60-100); HDL CHOLESTEROL 33.8 MG/DL (>40); LDL CHOLESTEROL 136.6 MG/DL (<100); NON-HDL-C 192.2 MG/DL; POTASSIUM SERUM 4.3 MMOL/L (3.5-5.1); SODIUM LEVEL 138 MMOL/L (136-145); TRIGLYCERIDES LEVEL 278 MG/DL (<150)
[2024-03-03 17:45] LABS: THYROID STIMULATING HORMONE 1.853 uIU/ML (0.55-4.78)
== END ==
LOC: M SFHCLERA 10:25
PROVIDERS: ATTEND Family Medicine
DX: E11.9 Type 2 diabetes mellitus without complications (principal); E78.5 Hyperlipidemia, unspecified; K86.1 Other chronic pancreatitis

== ENCOUNTER → 2024-03-18 | Outpatient (CLI) | payer OTHER ==
[2024-03-18 08:26] LABS: IONIZED CALCIUM 4.8 MG/DL (4.5-5.3)
[2024-03-18 09:02] LABS: CALCIUM LEVEL 10.3 MG/DL (8.5-10.1)
[2024-03-18 09:03] LABS: PTH INTACT 60.9 PG/ML (18.5-88.0)
[2024-03-18 09:07] LABS: TOTAL 25(OH) VITAMIN D 40.3 NG/ML (20.0-100.0)
== END ==
LOC: M RAD 07:47
PROVIDERS: ATTEND Family Medicine
DX: E83.52 Hypercalcemia (principal); M54.59 Other low back pain; M25.551 Pain in right hip; M25.552 Pain in left hip

== ENCOUNTER 2024-07-09 10:07 | Emergency (ER) | payer OTHER ==
[~2024-07-09] VITALS: Ht 160 cm; Wt 80.9 kg
[~2024-07-09 10:07] MED LIST changes: +ALBU8.5H INH; -AMBI5TAB PO; +ASPI325T53 PO; +CETI-24 PO; +DICY20TA20 PO; +FERR325T19 PO; +PANT40TA29 PO; +PRAZ2CAP PO; +TOPI-256 PO; -TOPI25TA10 PO; +VENL150C43 PO; +VITA200016 PO; +VITA500T11 PO; +ZOLP-532 PO
[2024-07-09 10:58] LABS: BASO # 0.1 10^3/uL (0.0-0.2); BASO % 0.8 % (0.0-1.0); EOS # 0.3 10^3/uL (0.0-0.5); EOS % 4.1 % (0.0-3.0); LYMPH # 2.9 10^3/uL (1.5-5.0); LYMPH % 38.1 % (24.0-44.0); MEAN CORPUSCULAR HEMOGLOBIN 33.2 pg (27.0-33.0); MEAN CORPUSCULAR HGB CONC 32.5 g/dl (32.0-36.5); MEAN CORPUSCULAR VOLUME 102.3 fl (80.0-96.0); MONO # 0.8 10^3/uL (0.0-0.8); NEUTROPHILS # 3.6 10^3/uL (1.5-8.5); NEUTROPHILS % 46.9 % (36.0-66.0); PLATELET COUNT, AUTOMATED 200 10^3/uL (150-450); RED BLOOD COUNT 3.91 10^6/uL (4.00-5.40); WHITE BLOOD COUNT 7.6 10^3/uL (4.0-10.0)
[2024-07-09 11:20] LABS: BLOOD UREA NITROGEN 11 MG/DL (9-23); CALCIUM LEVEL 9.7 MG/DL (8.5-10.1); CARBON DIOXIDE LEVEL 29 MMOL/L (20-31); CHLORIDE LEVEL 103 MMOL/L (98-107); CREATININE FOR GFR 0.54 MG/DL (0.55-1.30); GLOMERULAR FILTRATION RATE > 90.0 (>51); GLUCOSE, FASTING 201 MG/DL (60-100); MAGNESIUM LEVEL 2.1 MG/DL (1.8-2.4); POTASSIUM SERUM 4.3 MMOL/L (3.5-5.1); SODIUM LEVEL 140 MMOL/L (136-145)
[2024-07-09 11:23] LABS: THYROID STIMULATING HORMONE 1.946 uIU/ML (0.55-4.78)
[2024-07-09] MEDS ORDERED: ISOVUE-370 76% 100ML VIAL As Ordered ONE (12:19)
[2024-07-09] MEDS ORDERED: HOLTER MONITOR XX (14:36)
[2024-07-09 15:45] VITALS: BP 137/79; TEMP 97.6; O2SAT 95
[2024-07-09] MEDS: KETOROLAC 30 MG/ML 1ML VIAL IV ONE (16:12)
== END 2024-07-09 16:20 | disposition home or self-care (01) ==
LOC: EDBD 10:07 → M ED 10:07
DX: R55 Syncope and collapse (principal); S40.011A Contusion of right shoulder, initial encounter; X58.XXXA Exposure to other specified factors, initial encounter; Y92.9 Unspecified place or not applicable; Y93.9 Activity, unspecified; Y99.9 Unspecified external cause status; R91.1 Solitary pulmonary nodule; K75.81 Nonalcoholic steatohepatitis (NASH); E11.9 Type 2 diabetes mellitus without complications; E03.9 Hypothyroidism, unspecified; I10 Essential (primary) hypertension; J45.909 Unspecified asthma, uncomplicated; J44.9 Chronic obstructive pulmonary disease, unspecified; G47.33 Obstructive sleep apnea (adult) (pediatric); F41.9 Anxiety disorder, unspecified; F32.A Depression, unspecified; Z86.711 Personal history of pulmonary embolism; Z79.4 Long term (current) use of insulin; Z79.82 Long term (current) use of aspirin; Z79.899 Other long term (current) drug therapy; Z88.7 Allergy status to serum and vaccine; Z88.8 Allergy status to other drugs, medicaments and biological substances
CPT/HCPCS: 71045; 71275; 73030; 80047; 80048; 83735; 84443; 84484; 85025; 93005; 93041; 94760; 96374; 99285; J1885; Q9967

== ENCOUNTER → 2024-07-20 | Outpatient (CLI) | payer OTHER ==
[~2024-07-20] MED LIST changes: +HOLTER MONITOR XX
== END ==
LOC: M EKG 10:39
PROVIDERS: ATTEND Emergency Medicine
DX: R55 Syncope and collapse (principal); Z53.9 Procedure and treatment not carried out, unspecified reason

== ENCOUNTER → 2024-09-09 | Outpatient (CLI) | payer OTHER ==
[~2024-09-09] MED LIST changes: +AMIT10TA11 PO; -AMIT10TA7 PO; -IBUP-1022 PO; -IBUP1TAB6 PO; +IBUP600T42 PO; +SFHIBU600 PO
== END ==
LOC: M RAD 08:49
PROVIDERS: ATTEND Family Medicine
DX: K74.3 Primary biliary cirrhosis (principal); K76.0 Fatty (change of) liver, not elsewhere classified; N20.0 Calculus of kidney; K86.89 Other specified diseases of pancreas

== ENCOUNTER → 2024-10-26 | Outpatient (CLI) | payer OTHER ==
[~2024-10-26] MED LIST changes: +IBUP-1022 PO; +IBUP1TAB6 PO; -IBUP600T42 PO; -SFHIBU600 PO
== END ==
LOC: M RAD 15:05
PROVIDERS: ATTEND Student in an Organized Health Care Education/Training Program
DX: M25.571 Pain in right ankle and joints of right foot (principal)

== ENCOUNTER 2024-12-09 14:24 | Emergency (ER) | payer OTHER ==
[~2024-12-09] VITALS: Ht 160 cm; Wt 75.9 kg
[~2024-12-09 14:24] MED LIST changes: -IBUP-1022 PO; -IBUP1TAB6 PO; +IBUP600T42 PO; +SFHIBU600 PO
[2024-12-09 15:02] LABS: BASO # 0.1 10^3/uL (0.0-0.2); BASO % 1.0 % (0.0-1.0); EOS # 0.8 10^3/uL (0.0-0.5); EOS % 6.3 % (0.0-3.0); LYMPH # 3.7 10^3/uL (1.5-5.0); LYMPH % 28.8 % (24.0-44.0); MONO # 1.1 10^3/uL (0.0-0.8); MONO % 8.2 % (2.0-8.0); NEUTROPHILS # 7.1 10^3/uL (1.5-8.5); NEUTROPHILS % 54.9 % (36.0-66.0); PLATELET COUNT, AUTOMATED 266 10^3/uL (150-450)
[2024-12-09 15:34] LABS: ALT/SGPT 32 U/L (7.0-40); AST/SGOT 16 U/L (<34); CALCIUM LEVEL 9.4 MG/DL (8.5-10.1); CARBON DIOXIDE LEVEL 23 MMOL/L (20-31); CHLORIDE LEVEL 100 MMOL/L (98-107); CREATININE FOR GFR 0.60 MG/DL (0.55-1.30); GLOMERULAR FILTRATION RATE > 90.0 (>51); POTASSIUM SERUM 3.3 MMOL/L (3.5-5.1); SODIUM LEVEL 136 MMOL/L (136-145)
[2024-12-09] MEDS ORDERED: ATOR1TAB21 (16:04)
[2024-12-09] MEDS ORDERED: SUMA50TA2 (16:04)
[2024-12-09] MEDS ORDERED: PRED15EL PO (17:36)
[2024-12-09 17:45] VITALS: BP 141/83; TEMP 98.9; O2SAT 96
== END 2024-12-09 17:58 | disposition home or self-care (01) ==
LOC: M ED 14:24
DX: J45.901 Unspecified asthma with (acute) exacerbation (principal); F41.8 Other specified anxiety disorders; I50.9 Heart failure, unspecified; E11.9 Type 2 diabetes mellitus without complications; I10 Essential (primary) hypertension; F32.A Depression, unspecified; Z86.711 Personal history of pulmonary embolism; Z79.01 Long term (current) use of anticoagulants; M54.50 Low back pain, unspecified; Z87.891 Personal history of nicotine dependence; Z79.4 Long term (current) use of insulin; Z79.899 Other long term (current) drug therapy; Z88.7 Allergy status to serum and vaccine; Z88.8 Allergy status to other drugs, medicaments and biological substances
CPT/HCPCS: 71045; 80047; 80048; 80076; 83605; 85025; 87486; 87581; 87633; 87798; 93005; 93041; 94760; 96374; 96375; 99285; J1100; J2060

== ENCOUNTER → 2024-12-21 | Outpatient (REF) | payer OTHER ==
[~2024-12-21] MED LIST changes: +ATOR1TAB21; +SUMA50TA2
== END ==
LOC: M LAB REF 17:22
PROVIDERS: ATTEND Internal Medicine Critical Care Medicine
DX: E88.01 Alpha-1-antitrypsin deficiency (principal)

== ENCOUNTER → 2024-12-24 | Outpatient (CLI) | payer OTHER | LOC: M PLAIMG 13:18 | PROVIDERS: ATTEND Family Medicine | DX: R91.1 Solitary pulmonary nodule (principal); K76.0 Fatty (change of) liver, not elsewhere classified; E11.9 Type 2 diabetes mellitus without complications ==

== ENCOUNTER → 2024-12-24 | Outpatient (CLI) | payer OTHER ==
[2024-12-24 11:17] LABS: BASO # 0.1 10^3/uL (0.0-0.2); BASO % 0.9 % (0.0-1.0); EOS # 0.5 10^3/uL (0.0-0.5); EOS % 5.5 % (0.0-3.0); LYMPH # 2.5 10^3/uL (1.5-5.0); LYMPH % 26.7 % (24.0-44.0); MONO # 0.8 10^3/uL (0.0-0.8); MONO % 8.5 % (2.0-8.0); NEUTROPHILS # 5.3 10^3/uL (1.5-8.5); NEUTROPHILS % 58.0 % (36.0-66.0); PLATELET COUNT, AUTOMATED 256 10^3/uL (150-450)
[2024-12-24 11:45] LABS: ESTIMATED AVERAGE GLUCOSE 223.0 MG/DL (60-110)
[2024-12-24 11:47] LABS: CREATININE, URINE 38.2 MG/DL; MALB URINE SIEMENS < 3.0 MG/L
[2024-12-24 11:47] LABS: ALT/SGPT 35 U/L (7.0-40); AST/SGOT 17 U/L (<34); CALCIUM LEVEL 9.9 MG/DL (8.5-10.1); CARBON DIOXIDE LEVEL 28 MMOL/L (20-31); CHLORIDE LEVEL 99 MMOL/L (98-107); CREATININE FOR GFR 0.51 MG/DL (0.55-1.30); GLOMERULAR FILTRATION RATE > 90.0 (>51); POTASSIUM SERUM 4.5 MMOL/L (3.5-5.1); SODIUM LEVEL 138 MMOL/L (136-145)
[2024-12-29 16:37] LABS: ALPHA 2-MACROGLOBULINS,QN 251 mg/dL (106-279); ALT (SGPT) P5P 24 U/L (6-29); APOLIPOPROTEIN A-1 169 mg/dL (101-198); ENHANCED LIVER FIBROSIS SCORE 8.93 (<9.80); FIBROSIS SCORE 0.17; FIBROSIS STAGE NO FIBROSIS (F0); GGT 32 U/L (3-70); HAPTOGLOBIN 167 mg/dL (43-212); NECROINFLAM ACT GRADE NO ACTIVITY (A0); NECROINFLAM ACT SCORE 0.09
== END ==
LOC: M LAB 10:16
PROVIDERS: ATTEND Family Medicine
DX: K76.0 Fatty (change of) liver, not elsewhere classified (principal); E11.9 Type 2 diabetes mellitus without complications

== ENCOUNTER → 2025-01-13 | Outpatient (CLI) | payer OTHER | LOC: M SLEEP 20:00 | PROVIDERS: ATTEND Internal Medicine Critical Care Medicine | DX: G47.33 Obstructive sleep apnea (adult) (pediatric) (principal) ==